=== PATIENT | male | born 1950 | race Caucasian/White ===

== ENCOUNTER 2016-06-16 12:23 | Emergency (ER) | payer OTHER ==
[2016-06-16 12:32] VITALS: BP 127/80
--- NOTE | 2016-06-16 13:52 | CT ---
Head CT Technique: Multiple axial sections through the brain were obtained. Intravenous contrast was not utilized. Comparison: Previous head CT study of 02/03/15. Findings: Ventricles along with basal cisterns and sulci over the convexities are within normal limits for the patient's age. No abnormal parenchymal densities are seen. No evidence of intracranial hemorrhage. No midline shift or mass effect is seen. Mild atherosclerotic calcification is seen with the left vertebral vessel and within the carotid siphon. Bone window settings were reviewed which show slight mucosal thickening within the left ethmoid sinus. Visualized mastoid sinuses and middle ear cavities are clear. No acute calvarial abnormality is seen. Impression: 1. Minimal sinus findings which are incidental. Minimal senescent change. 2. No acute intracranial abnormality is appreciated. Diagnostic code #2
--- NOTE | 2016-06-16 14:48 | EDM.PDOC ---
ED HPI EYE COMPLAINT - General Chief Complaint: Eye Problems Stated Complaint: VISION PROBLEMS Time Seen by Provider: 06/16/16 12:50 Source: Reports: Patient History Limitations: Reports: No limitations - History of Present Illness INITIAL COMMENTS - FREE TEXT/NARRATIVE: The patient presents with vision changes. He has bilateral blurry vision. He also has floaters in both eyes. He also had a flash of light to the right visual field. This has been going on for about 1 week. He has no headache, numbness or weakness. He has no fever, chill, cough or congestion. He denies eye pain. He has a clear drainage at times. He had cataract surgery before. Timing/Duration: Reports: Week(s): (1) Location: both Improves with: Reports: None Worsens with: Reports: None Associated Symptoms (Eye): Reports: decreased/blurred. Denies: pain, burning, itching, eyelid redness, eyelid swelling, FB sensation - Related Data Allergies/ADRs: Allergies acetaminophen [From Tylenol] Allergy (Verified 08/13/15 03:07) Airway Tightness aspirin Allergy (Verified 08/13/15 03:07) Airway Tightness diltiazem Allergy (Verified 08/13/15 03:07) Cannot Remember meperidine HCl [From Demerol] Allergy (Verified 08/13/15 03:07) Airway Tightness morphine Allergy (Verified 08/13/15 03:07) Itching sumatriptan [From Imitrex] Allergy (Verified 08/13/15 03:07) Cannot Remember sumatriptan succinate [From Imitrex] Allergy (Verified 08/13/15 03:07) Cannot Remember haloperidol [From Haldol] Adverse Reaction (Verified 08/13/15 03:07) Change Mental Status haloperidol lactate [From Haldol] Adverse Reaction (Verified 06/16/16 12:32) Change Mental Status ketorolac tromethamine [From Toradol] Adverse Reaction (Verified 08/13/15 03:07) Change Mental Status antihistamines Allergy (Uncoded 01/23/16 23:45) Airway Tightness Home Meds: Ambulatory Orders Medication Instructions Recorded Confirmed Albuterol/Ipratropium [Combivent] 2 puff INH Q4H PRN 04/12/14 06/16/16 Clopidogrel [Plavix] 1 tab PO DAILY 04/12/14 06/16/16 Furosemide [Lasix] 40 mg PO DAILY 04/12/14 06/16/16 PARoxetine HCl [Paxil] 20 mg PO DAILY 04/12/14 06/16/16 Potassium Chloride 10 meq PO BID 04/12/14 06/16/16 Tamsulosin HCl [Flomax] 0.4 mg PO DAILY 04/12/14 06/16/16 Tiotropium [Spiriva HandiHaler] 1 cap INH DAILY 04/12/14 06/16/16 Verapamil HCl [Verelan] 120 mg PO BID 04/12/14 06/16/16 ClonazePAM [KlonoPIN] 0.5 mg PO BEDTIME 02/03/15 06/16/16 Ipratropium Rew 1 spray NASBOTH BID 02/03/15 06/16/16 Simvastatin [Zocor] 20 mg PO BEDTIME 02/03/15 06/16/16 Mirtazapine 15 mg PO BEDTIME 05/09/15 06/16/16 Albuterol Sulfate 2.5 mg IH ASDIRECTED PRN 08/13/15 06/16/16 Nitroglycerin [Nitrostat] 0.3 mg SL ASDIRECTED PRN 08/13/15 06/16/16 Omeprazole 20 mg PO DAILY 08/13/15 06/16/16 hydrOXYzine HCl [Atarax] 50 mg PO TID PRN 08/13/15 06/16/16 Apixaban [Eliquis] 5 mg PO BID 01/23/16 06/16/16 Budesonide/Formoterol [Symbicort 2 inhalation INH BID 01/23/16 06/16/16 160-4.5 MCG] Magnesium Oxide 420 mg PO DAILY 01/23/16 06/16/16 Verapamil [Calan SR] 120 mg PO BID 01/23/16 06/16/16 Azithromycin [Zithromax] 500 mg PO DAILY #5 tablet 01/24/16 06/16/16 Prednisone [IJD: predniSONE] 20 mg PO WITHBREAKFAST #18 tab 01/24/16 06/16/16 Albuterol/Ipratropium [DuoNeb 3 ml NEB Q6HRRT #60 neb 04/03/16 06/16/16 3.0-0.5 MG/3 ML] Amoxicillin/Potassium Clav 1 each PO Q12H #20 tablet 04/03/16 06/16/16 [Augmentin 875-125 Tablet] Prednisone [IJD: predniSONE] 20 mg PO Q12H #41 tab 04/03/16 06/16/16 Past Medical History HEENT History: Reports: Cataract Other HEENT History: wears eyeglasses and upper dentures Cardiovascular History: Reports: Afib, CAD, Heart Failure, ND, Stents Other Cardiovascular History: on coumadin, stents in 1999, 5 ND, and Afib Respiratory History: Reports: Asthma, Bronchitis, recurrent, COPD, Intubation, previous, Pneumonia, recurrent, Sleep apnea, SOB Gastrointestinal History: Reports: GERD Genitourinary History: Reports: BPH Musculoskeletal History: Reports: None Neurological History: Reports: Headaches, chronic Psychiatric History: Reports: Depression Endocrine/Metabolic History: Reports: Obesity/BMI 30+ - Past Surgical History HEENT Surgical History: Reports: Cataract surgery Other HEENT Surgeries/Procedures: nose "worked on" four times to help breathing Cardiovascular Surgical History: Reports: Coronary artery stent Respiratory Surgical History: Reports: None GI Surgical History: Reports: None Male Surgical History: Reports: None Endocrine Surgical History: Reports: None Neurological Surgical History: Reports: None Musculoskeletal Surgical History: Reports: Other (see below) Other Musculoskeletal Surgeries/Procedures:: Bilateral THR Social & Family History - Family History Family Medical History: Noncontributory Oncologic: Reports: Leukemia Other Oncologic Family History: Brother - Tobacco Use Smoking Status *Q: Former Smoker Years of Tobacco use: 20 Packs/Tins Daily: 0.2 Used Tobacco, but Quit: Yes Month Tobacco Last Used: 15 yrs Second Hand Smoke Exposure: No - Caffeine Use Caffeine Use: Reports: Soda - Alcohol Use Days Per Week of Alcohol Use: 0 - Recreational Drug Use Recreational Drug Use: No - Living Situation & Occupation Living situation: Reports: Occupation: disabled ED ROS GENERAL - Review of Systems Review Of Systems: See Below Constitutional: Reports: no symptoms HEENT: Reports: Other (Vision changes) Respiratory: Reports: no symptoms Cardiovascular: Reports: No symptoms Endocrine: Reports: no symptoms GI/Abdominal: Reports: No symptoms : Reports: no symptoms Musculoskeletal: Reports: no symptoms Skin: Reports: no symptoms ED EXAM GENERAL W FULL EYE - Physical Exam Exam: See Below Exam Limited By: No limitations General Appearance: alert, no apparent distress Eye Exam: bilateral eye: EOMI, PERRL Visual acuity (R) 20/: 40 (corrected) Visual acuity (L) 20/: 30 (corrected) IOP (R) in mmH IOP (L) in mmH IOP measure with (equipment): other Eyelids: bilateral: normal appearance Conjunctiva & Sclera: bilateral: normal appearance Cornea Exam: bilateral: normal appearance Extraocular Movements: bilateral: intact Pupillary Size: bilateral: 4 mm Pupillary Reaction: bilateral: brisk Anterior Chamber: bilateral: normal appearance Posterior Chamber: bilateral: normal funduscopic Ears: normal external exam Nose: normal inspection Head: atraumatic, normocephalic Neck: normal inspection Respiratory/Chest: no respiratory distress, lungs clear, normal breath sounds Cardiovascular: regular rate, rhythm, no edema, no murmur GI/Abdominal: soft, non tender, no organomegaly, no mass Course - Vital Signs Last Recorded V/S: Last Vital Signs Temp 97.5 F 06/16/16 12:29 Pulse 72 06/16/16 12:29 Resp 22 H 06/16/16 12:29 BP 127/80 06/16/16 12:29 Pulse Ox 93 L 06/16/16 12:29 - Orders/Labs/Meds Orders: Active Orders 24 hr Category Date Time Status Cardiac Monitoring [RC] . DIRECTED Care 06/16/16 13:01 Active Labs: Laboratory Tests 06/16/16 06/16/16 Range/Units 13:15 13:15 WBC 8.12 (4.23-9.07) K/mm3 RBC 4.63 (4.63-6.08) M/mm3 Hgb 15.1 (13.7-17.5) gm/L Hct 46.1 (40.1-51.0) % MCV 99.6 H (79.0-92.2) fl MCH 32.6 H (25.7-32.2) pg MCHC 32.8 (32.2-35.5) g/dl RDW Std Deviation 51.9 H (35.1-43.9) fL Plt Count 184 (163-337) K/mm3 MPV 9.2 L (9.4-12.3) fl Neut % (Auto) 67.7 (34.0-67.9) % Lymph % (Auto) 18.7 L (21.8-53.1) % [place] % (Auto) 9.1 (5.3-12.2) % Eos % (Auto) 3.0 (0.8-7.0) Baso % (Auto) 0.6 (0.1-1.2) % Neut # 5.50 H (1.78-5.38) K/mm3 Lymph # 1.52 (1.32-3.57) K/mm3 [place] # 0.74 (0.30-0.82) K/mm3 Eos # 0.24 (0.04-0.54) K/mm3 Baso # 0.05 (0.01-0.08) K/mm3 Sodium 142 (136-145) mEq/L Potassium 4.1 (3.5-5.1) mEq/L Chloride 104 (98-107) mEq/L Carbon Dioxide 29 (21-32) mEq/L Anion Gap 13.1 (5-15) BUN 14 (7-18) mg/dL Creatinine 1.3 (0.7-1.3) mg/dL Est Cr Clr Drug Dosing TNP Estimated GFR (MDRD) 55 (>60) mL/min BUN/Creatinine Ratio 10.8 L (14-18) Glucose 175 H (80-115) mg/dL Calcium 9.0 (8.5-10.1) mg/dL Total Bilirubin 0.3 (0.2-1.0) mg/dL AST 19 (15-37) U/L ALT 39 (16-63) U/L Alkaline Phosphatase 152 H (46-116) U/L C-Reactive Protein 1.3 H* (<1.0) mg/dL Total Protein 6.9 (6.4-8.2) g/dl Albumin 3.4 (3.4-5.0) g/dl Globulin 3.5 gm/dL Albumin/Globulin Ratio 1.0 (1-2) - Re-Assessments/Exams Free Text/Narrative Re-Assessment/Exam: 06/16/16 14:47 I [address] a head CT that was negative. His labs look good. His visual exam looks good. 06/16/16 14:49 I will have him see an physical therapist assistant. He will follow up with one. Departure - Departure Time of Disposition: 14:50 Disposition: Home, Self-Care 01 Condition: good Clinical Impression: Blurred vision, bilateral Floaters in visual field Qualifiers: Laterality: right Qualified Code(s): H43.391 - Other vitreous opacities, right eye Referrals: Xuan Ignacio DO [Primary Care Provider] - Forms: ED Department Discharge Additional Instructions: Follow up with an physical therapist assistant for dilated eye exam. Please return if you are worse. - My Orders Last 24 Hours: My Active Orders 06/16/16 13:01 Cardiac Monitoring [RC] . DIRECTED - Assessment/Plan Last 24 Hours: My Active Orders 06/16/16 13:01 Cardiac Monitoring [RC] . DIRECTED
== END 2016-06-16 15:01 | disposition home or self-care (01) ==
LOC: JD.ED 12:23
DX: H43.391 Other vitreous opacities, right eye (principal); I50.9 Heart failure, unspecified; I25.2 Old myocardial infarction; I25.10 Atherosclerotic heart disease of native coronary artery without angina pectoris; K21.9 Gastro-esophageal reflux disease without esophagitis; F32.9 Major depressive disorder, single episode, unspecified; E66.9 Obesity, unspecified; Z98.49 Cataract extraction status, unspecified eye; Z95.5 Presence of coronary angioplasty implant and graft; Z68.30 Body mass index [BMI] 30.0-30.9, adult; Z98.890 Other specified postprocedural states; Z87.891 Personal history of nicotine dependence; Z79.02 Long term (current) use of antithrombotics/antiplatelets; Z79.2 Long term (current) use of antibiotics; Z79.899 Other long term (current) drug therapy; Z88.6 Allergy status to analgesic agent; Z88.5 Allergy status to narcotic agent; Z88.8 Allergy status to other drugs, medicaments and biological substances
CPT/HCPCS: 36415; 70450; 70450-26; 80053; 85025; 86140; 99282; 99284-25

== ENCOUNTER 2016-10-18 12:32 | Inpatient (IN) | payer OTHER ==
[2016-10-18] MEDS ORDERED: Albuterol/Ipratropium 3.0-0.5 MG/3 ML Neb Soln NEB ONE (14:03)
[2016-10-18] MEDS ORDERED: predniSONE 20 MG Tab PO STA (14:04)
--- NOTE | 2016-10-18 14:06 | EDM.PDOC ---
ED HPI GENERAL MEDICAL PROBLEM - General Chief Complaint: Chest Pain Stated Complaint: CHEST PAIN AND ARM PAIN Time Seen by Provider: 10/18/16 12:53 Source of Information: Reports: Patient, RN Notes Reviewed History Limitations: Reports: No Limitations - History of Present Illness INITIAL COMMENTS - FREE TEXT/NARRATIVE: The patient states that he was seen at [facility] 3 days ago for an enlarged right testicle, at which time he was prescribed Levaquin and oxycodone. Since then, the patient states that he has developed body aches. He states he too weak to get out of bed. He states that he had a fever of 103 yesterday. He states that he has a slight cough, occasionally productive of sputum. He states that this is a chronic condition, although is worse than usual. He denies shortness of breath at rest, but admits that he has chronic dyspnea on exertion. He has not noticed that he has been wheezing. His main complaint at this time is of a dry mouth and feeling tired. He also notes that his lower extremities are swollen, although I note that he has chronic venous stasis changes. Here in the ED, the patient is afebrile, but his initial oxygen saturation was found to be 71% on room air. He appeared cyanotic. The patient ordinarily takes oxygen 2.5 L bled into his BiPAP at night. He was given supplemental oxygen at 2.5 L here in the ED, and his oxygen saturation has increased to approximately 88%. He no longer appears cyanotic. The patient's PCP is at the [place]. Bilateral Chest Pain Score (Numeric/FACES): 4 Generalized Pain Score (Numeric/FACES): 4 - Related Data Allergies Allergy/AdvReac Type Severity Reaction Status Date / Time acetaminophen [From Tylenol] Allergy Airway Verified 10/18/16 12:50 Tightness aspirin Allergy Airway Verified 10/18/16 12:50 Tightness diltiazem Allergy Cannot Verified 10/18/16 12:50 Remember meperidine HCl [From Demerol] Allergy Airway Verified 10/18/16 12:50 Tightness morphine Allergy Itching Verified 10/18/16 12:50 sumatriptan [From Imitrex] Allergy Cannot Verified 10/18/16 12:50 Remember sumatriptan succinate Allergy Cannot Verified 10/18/16 12:50 [From Imitrex] Remember haloperidol [From Haldol] AdvReac Change Verified 10/18/16 12:50 Mental Status haloperidol lactate AdvReac Change Verified 10/18/16 12:50 [From Haldol] Mental Status ketorolac tromethamine AdvReac Change Verified 10/18/16 12:50 [From Toradol] Mental Status antihistamines Allergy Airway Uncoded 01/23/16 23:45 Tightness Home Meds: Home Meds Albuterol/Ipratropium [Combivent] 2 puff INH Q4H PRN 04/12/14 [History] Clopidogrel [Plavix] 1 tab PO DAILY 04/12/14 [History] Furosemide [Lasix] 40 mg PO DAILY 04/12/14 [History] PARoxetine HCl [Paxil] 20 mg PO DAILY 04/12/14 [History] Potassium Chloride 10 meq PO BID 04/12/14 [History] Tamsulosin HCl [Flomax] 0.4 mg PO DAILY 04/12/14 [History] Tiotropium [Spiriva HandiHaler] 1 cap INH DAILY 04/12/14 [History] ClonazePAM [KlonoPIN] 0.5 mg PO BEDTIME 02/03/15 [History] Ipratropium [place] 1 spray NASBOTH BID 02/03/15 [History] Simvastatin [Zocor] 20 mg PO BEDTIME 02/03/15 [History] Mirtazapine 15 mg PO BEDTIME 05/09/15 [History] Albuterol Sulfate 2.5 mg IH ASDIRECTED PRN 08/13/15 [History] Nitroglycerin [Nitrostat] 0.3 mg SL ASDIRECTED PRN 08/13/15 [History] hydrOXYzine HCl [Atarax] 50 mg PO TID PRN 08/13/15 [History] Apixaban [Eliquis] 5 mg PO BID 01/23/16 [History] Budesonide/Formoterol [Symbicort 160-4.5 MCG] 2 inhalation INH BID 01/23/16 [ History] Magnesium Oxide 420 mg PO DAILY 01/23/16 [History] Verapamil [Calan SR] 120 mg PO BID 01/23/16 [History] Albuterol/Ipratropium [DuoNeb 3.0-0.5 MG/3 ML] 3 ml NEB Q6HRRT #60 neb 04/03/16 [Rx] Past Medical History HEENT History: Reports: Cataract Other HEENT History: wears eyeglasses and upper dentures Cardiovascular History: Reports: Afib (paroxysmal), CAD, Heart Failure, High Cholesterol, Hypertension, PR Respiratory History: Reports: COPD, Intubation, Previous, Sleep Apnea (nightly BiPAP + O2) Gastrointestinal History: Reports: GERD, PUD Genitourinary History: Reports: BPH Psychiatric History: Reports: Anxiety, Depression Endocrine/Metabolic History: Reports: Obesity/BMI 30+ - Past Surgical History HEENT Surgical History: Reports: Cataract Surgery Cardiovascular Surgical History: Reports: Coronary Artery Stent (x 3) GI Surgical History: Reports: Appendectomy Musculoskeletal Surgical History: Reports: Hip Replacement (bilateral) Social & Family History - Family History Family Medical History: Noncontributory Oncologic: Reports: Leukemia Other Oncologic Family History: Brother - Tobacco Use Smoking Status *Q: Former Smoker Years of Tobacco use: 20 Packs/Tins Daily: 0.5 Month Tobacco Last Used: Quit 2013 Second Hand Smoke Exposure: No - Caffeine Use Caffeine Use: Reports: Soda - Alcohol Use Alcohol Use History: No Days Per Week of Alcohol Use: 0 - Recreational Drug Use Recreational Drug Use: No - Living Situation & Occupation Living situation: Reports: , with Spouse Occupation: Disabled ED ROS GENERAL - Review of Systems Review Of Systems: See Below Constitutional: Reports: Fever (as per the HPI), Fatigue (as per the HPI) HEENT: Reports: No Symptoms, Other (Dry mouth) Respiratory: Reports: Cough (as per the HPI), Sputum (as per the HPI). Denies: Shortness of Breath, Wheezing Cardiovascular: Reports: Dyspnea on Exertion (as per the HPI). Denies: Chest Pain, Palpitations Endocrine: Reports: No Symptoms GI/Abdominal: Reports: No Symptoms : Reports: No Symptoms Musculoskeletal: Reports: No Symptoms Skin: Reports: No Symptoms Neurological: Reports: No Symptoms Psychiatric: Reports: No Symptoms Hematologic/Lymphatic: Reports: No Symptoms Immunologic: Reports: No Symptoms ED EXAM, GENERAL - Physical Exam Exam: See Below Exam Limited By: No Limitations General Appearance: Alert, WD/WN, Mild Distress Eye Exam: Bilateral Eye: Normal Inspection Ears: Normal External Exam, Hearing Grossly Normal Nose: Normal Inspection, No Blood Throat/Mouth: Normal Inspection, Normal Lips, Normal Voice, No Airway Compromise Head: Atraumatic, Normocephalic Neck: Normal Inspection, Full Range of Motion Respiratory/Chest: No Respiratory Distress, No Accessory Muscle Use, Decreased Breath Sounds, Wheezing, Prolonged Expiration, Other (Pursed lip breathing). No : Respiratory Distress, Crackles, Rhonchi Cardiovascular: Normal Peripheral Pulses, No Gallop, No JVD, No Murmur, No Rub, Irregularly Irregular Peripheral Pulses: 4+: Radial (L), Radial (R) GI/Abdominal: Normal Bowel Sounds, Soft, Non-Tender, No Organomegaly, No Distention, No Abnormal Bruit, No Mass, Other (Obese) (Male) Exam: Deferred Rectal (Males) Exam: Deferred Back Exam: Normal Inspection, Full Range of Motion, NT Extremities: Normal Range of Motion, Other (2+ pretibial edema bilaterally, with hyperpigmentation consistent with chronic venous stasis) Neurological: Alert, Oriented, Normal Cognition, No Motor/Sensory Deficits Psychiatric: Normal Affect Skin Exam: Warm, Dry, Intact, Normal Color, No Rash Lymphatic: No Adenopathy EKG INTERPRETATION EKG Date: 10/18/16 Time: 12:39 Rhythm: A-Fib Rate (Beats/Min): 95 [place]: Normal P-Wave: Absent QRS: Normal ST-T: Normal QT: Normal Comparison: No Change (04/03/2016) Course - Vital Signs Last Recorded V/S: Last Vital Signs Temp 36.4 C 10/18/16 12:38 Pulse 113 H 10/18/16 12:38 Resp 16 10/18/16 12:38 BP 122/78 10/18/16 12:38 Pulse Ox 91 L 10/18/16 14:03 - Orders/Labs/Meds Orders: Active Orders 24 hr Category Date Time Status EKG Documentation Completion [RC] STAT Care 10/18/16 13:11 Active RT Aerosol Therapy [RC] ASDIRECTED Care 10/18/16 14:03 Active Ang Chest [CT] Stat Exams 10/18/16 14:58 Taken Chest 2V [CR] Stat Exams 10/18/16 13:11 Taken Sodium Chloride 0.9% [Normal Saline] 1,000 ml Med 10/18/16 15:00 Active IV ASDIRECTED Sodium Chloride 0.9% [Normal Saline] 100 ml Med 10/18/16 15:15 Active IV ASDIRECTED Sodium Chloride 0.9% [Saline Flush] Med 10/18/16 15:05 Active 10 ml FLUSH ONETIME PRN Blood Culture x2 Reflex Set [OM.PC] Stat Oth 10/18/16 13:11 Ordered Medication Orders Sodium Chloride (Normal Saline) 1,000 mls @ 100 mls/hr IV ASDIRECTED SANTOS Last Admin: 10/18/16 15:55 Dose: 100 mls/hr Sodium Chloride (Normal Saline) 100 mls @ 65 mls/hr IV ASDIRECTED SANTOS Last Admin: 10/18/16 15:36 Dose: 65 mls/hr Sodium Chloride (Saline Flush) 10 ml FLUSH ONETIME PRN PRN Reason: IV FLUSH Last Admin: 10/18/16 15:36 Dose: 10 ml Labs: Laboratory Tests 10/18/16 10/18/16 10/18/16 Range/Units 12:45 12:45 12:45 WBC 11.15 H (4.23-9.07) K/mm3 RBC 4.27 L (4.63-6.08) M/mm3 Hgb 13.5 L (13.7-17.5) gm/L Hct 41.6 (40.1-51.0) % MCV 97.4 H (79.0-92.2) fl MCH 31.6 (25.7-32.2) pg MCHC 32.5 (32.2-35.5) g/dl RDW Std Deviation 48.9 H (35.1-43.9) fL Plt Count 200 (163-337) K/mm3 MPV 9.6 (9.4-12.3) fl Neutrophils % (Manual) 80 H (40-60) % Band Neutrophils % 0 (0-10) % Lymphocytes % (Manual) 9 L (20-40) % Atypical Lymphs % 0 % Monocytes % (Manual) 8 (2-10) % Eosinophils % (Manual) 2 (0.8-7.0) % Basophils % (Manual) 1 (0.2-1.2) Platelet Estimate Adequate Plt Morphology Comment Normal RBC Morph Comment Normal PT 11.4 (8.0-13.0) SECONDS INR 1.04 APTT 31 (22-36) SECONDS D-Dimer, Quantitative 1.00 H (0.19-0.59) mg/L Puncture Site ABG pH (7.35-7.45) ABG pCO2 (35.0-45.0) mmHg ABG pO2 (80.0-100.0) mmHg ABG HCO3 (22.0-26.0) meq/L A-a Gradient mmHg O2 Delivery Device Oxygen Flow Rate FiO2 (21.00-100.00) % Sodium 132 L (136-145) mEq/L Potassium 3.8 (3.5-5.1) mEq/L Chloride 96 L (98-107) mEq/L Carbon Dioxide 33 H (21-32) mEq/L Anion Gap 6.8 (5-15) BUN 21 H (7-18) mg/dL Creatinine 1.7 H (0.7-1.3) mg/dL Est Cr Clr Drug Dosing 38.05 mL/min Estimated GFR (MDRD) 40 (>60) mL/min BUN/Creatinine Ratio 12.4 L (14-18) Glucose 126 H (80-115) mg/dL Lactic Acid (0.4-2.0) mmol/L Calcium 8.6 (8.5-10.1) mg/dL Total Bilirubin 0.7 (0.2-1.0) mg/dL AST 64 H (15-37) U/L ALT 25 (16-63) U/L Alkaline Phosphatase 143 H (46-116) U/L Troponin I 0.027 (0.00-0.056) ng/mL B-Natriuretic Peptide (0-100) pg/mL Total Protein 6.8 (6.4-8.2) g/dl Albumin 3.0 L (3.4-5.0) g/dl Globulin 3.8 gm/dL Albumin/Globulin Ratio 0.8 L (1-2) 10/18/16 10/18/16 10/18/16 Range/Units 12:45 13:45 14:42 WBC (4.23-9.07) K/mm3 RBC (4.63-6.08) M/mm3 Hgb (13.7-17.5) gm/L Hct (40.1-51.0) % MCV (79.0-92.2) fl MCH (25.7-32.2) pg MCHC (32.2-35.5) g/dl RDW Std Deviation (35.1-43.9) fL Plt Count (163-337) K/mm3 MPV (9.4-12.3) fl Neutrophils % (Manual) (40-60) % Band Neutrophils % (0-10) % Lymphocytes % (Manual) (20-40) % Atypical Lymphs % % Monocytes % (Manual) (2-10) % Eosinophils % (Manual) (0.8-7.0) % Basophils % (Manual) (0.2-1.2) Platelet Estimate Plt Morphology Comment RBC Morph Comment PT (8.0-13.0) SECONDS INR APTT (22-36) SECONDS D-Dimer, Quantitative (0.19-0.59) mg/L Puncture Site Lt radial ABG pH 7.39 (7.35-7.45) ABG pCO2 52.4 H (35.0-45.0) mmHg ABG pO2 59.0 L (80.0-100.0) mmHg ABG HCO3 31.2 H (22.0-26.0) meq/L A-a Gradient 80 mmHg O2 Delivery Device Nasal cannula Oxygen Flow Rate 3.0 FiO2 32.00 (21.00-100.00) % Sodium (136-145) mEq/L Potassium (3.5-5.1) mEq/L Chloride (98-107) mEq/L Carbon Dioxide (21-32) mEq/L Anion Gap (5-15) BUN (7-18) mg/dL Creatinine (0.7-1.3) mg/dL Est Cr Clr Drug Dosing mL/min Estimated GFR (MDRD) (>60) mL/min BUN/Creatinine Ratio (14-18) Glucose (80-115) mg/dL Lactic Acid 0.9 (0.4-2.0) mmol/L Calcium (8.5-10.1) mg/dL Total Bilirubin (0.2-1.0) mg/dL AST (15-37) U/L ALT (16-63) U/L Alkaline Phosphatase (46-116) U/L Troponin I (0.00-0.056) ng/mL B-Natriuretic Peptide 777 H (0-100) pg/mL Total Protein (6.4-8.2) g/dl Albumin (3.4-5.0) g/dl Globulin gm/dL Albumin/Globulin Ratio (1-2) Meds: Medications Generic Name Dose Route Start Last Admin Trade Name Freq PRN Reason Stop Dose Admin Sodium Chloride 1,000 mls @ 100 mls/hr 10/18/16 15:00 10/18/16 15:55 Normal Saline IV 100 mls/hr ASDIRECTED SANTOS Administration Sodium Chloride 100 mls @ 65 mls/hr 10/18/16 15:15 10/18/16 15:36 Normal Saline IV 65 mls/hr ASDIRECTED SANTOS Administration Sodium Chloride 10 ml 10/18/16 15:05 10/18/16 15:36 Saline Flush FLUSH 10 ml ONETIME PRN Administration IV FLUSH Discontinued Medications Generic Name Dose Route Start Last Admin Trade Name Freq PRN Reason Stop Dose Admin Albuterol/Ipratropium 3 ml 10/18/16 14:03 10/18/16 14:26 Duoneb 3.0-0.5 Mg/3 Ml NEB 10/18/16 14:04 3 ml ONETIME ONE Administration Levofloxacin/Dextrose 750 mg/ 150 mls @ 100 mls/hr 10/18/16 14:07 10/18/16 14 :32 Premix IV 10/18/16 15:36 100 mls/hr ONETIME ONE Administration Iopamidol 100 ml 10/18/16 15:05 10/18/16 15:36 Isovue-370 (76%) IVPUSH 10/18/16 15:06 100 ml ONETIME ONE Administration Prednisone 60 mg 10/18/16 14:04 10/18/16 15:14 Prednisone PO 10/18/16 14:05 60 mg ONETIME STA Administration - Re-Assessments/Exams Free Text/Narrative Re-Assessment/Exam: 10/18/16 14:00 Two-view chest radiograph reviewed. Cardiac silhouette appears to demonstrate the predominance of the heart on the right side of the chest, possible dextrocardia. No pulmonary vascular congestion. No pleural effusions. Infiltrate versus atelectasis likely in the middle lobe. No pneumothorax. Formal read per the Radiologist pending. 10/18/16 14:59 The patient's D-dimer is modestly elevated at 1.00. His renal function is moderately impaired. I have ordered a CT angiogram of the chest to evaluate for PE, along with normal saline IV fluid. 10/18/16 16:29 CT angiogram of the chest is read by [facility] as: 1. No evidence of pulmonary embolus to the segmental level. 2. No aneurysm of the ascending aorta. 3. No dissection of the aorta. 4. Narrowing of the trachea. Narrowing of the mainstem bronchi. 5. Opacities in the lower lobes, right middle lobe, and lingula may represent atelectasis or pneumonia. 10/18/16 16:[address] Briones at 16:34. She agrees to admit the patient. 10/18/16 16:41 Case discussed with the patient. He is agreeable to being admitted. Departure - Departure Time of Disposition: 16:41 Disposition: Admitted As Inpatient 64 Condition: Fair Clinical Impression: Hypoxemia, Acute renal failure, Atrial fibrillation Pneumonia Qualifiers: Pneumonia type: due to unspecified organism Laterality: bilateral Lung location : lower lobe of lung Qualified Code(s): J16.8 - Pneumonia due to other specified infectious organisms - Discharge Information - My Orders Last 24 Hours: My Active Orders 10/18/16 13:11 EKG Documentation Completion [RC] STAT Chest 2V [CR] Stat Blood Culture x2 Reflex Set [OM.PC] Stat 10/18/16 14:03 RT Aerosol Therapy [RC] ASDIRECTED 10/18/16 14:58 Ang Chest [CT] Stat 10/18/16 15:00 Sodium Chloride 0.9% [Normal Saline] 1,000 ml IV ASDIRECTED 10/18/16 15:05 Sodium Chloride 0.9% [Saline Flush] 10 ml FLUSH ONETIME PRN 10/18/16 15:15 Sodium Chloride 0.9% [Normal Saline] 100 ml IV ASDIRECTED - Assessment/Plan Last 24 Hours: My Active Orders 10/18/16 13:11 EKG Documentation Completion [RC] STAT Chest 2V [CR] Stat Blood Culture x2 Reflex Set [OM.PC] Stat 10/18/16 14:03 RT Aerosol Therapy [RC] ASDIRECTED 10/18/16 14:58 Ang Chest [CT] Stat 10/18/16 15:00 Sodium Chloride 0.9% [Normal Saline] 1,000 ml IV ASDIRECTED 10/18/16 15:05 Sodium Chloride 0.9% [Saline Flush] 10 ml FLUSH ONETIME PRN 10/18/16 15:15 Sodium Chloride 0.9% [Normal Saline] 100 ml IV ASDIRECTED
[2016-10-18] MEDS ORDERED: Levofloxacin/Dextrose 5%-Water 750 MG in Premix Bag 1 BAG IV ONE (14:07)
[2016-10-18] MEDS ORDERED: Iopamidol 755 Mg/ML 100 ML Bottle IVPUSH ONE (15:05)
[2016-10-18] MEDS ORDERED: Sodium Chloride 0.9% 10 ML Syringe FLUSH PRN (15:05)
[2016-10-18] MEDS ORDERED: Sodium Chloride 0.9% 100 ML IV SCH (15:15)
[2016-10-18] MEDS: Sodium Chloride 0.9% 1,000 ML IV SCH (15:55)
[2016-10-18] MEDS ORDERED: Acetaminophen/HYDROcodone 325-5 MG Tab PO PRN (17:08)
[2016-10-18] MEDS ORDERED: LORazepam 2 MG/ML MDV IV PRN (17:08)
[2016-10-18] MEDS ORDERED: Albuterol/Ipratropium 3.0-0.5 MG/3 ML Neb Soln NEB PRN (17:08)
[2016-10-18] MEDS ORDERED: Acetaminophen 325 MG Tab PO PRN (17:08)
[2016-10-18] MEDS ORDERED: Polyethylene Glycol 3350 Powder 17 GM Packet PO PRN (17:08)
[2016-10-18] MEDS ORDERED: Docusate Sodium 100 MG Cap PO PRN (17:08)
[2016-10-18] MEDS ORDERED: Bisacodyl 5 MG Tab PO PRN (17:08)
[2016-10-18] MEDS ORDERED: Ondansetron 4 MG/2 ML SDV IV PRN (17:08)
[2016-10-18] MEDS ORDERED: Promethazine 12.5 MG in Sodium Chloride 0.9% 50 ML IV PRN (17:08)
[2016-10-18] MEDS ORDERED: Morphine 2 MG/ML Syringe IVPUSH PRN (17:08)
--- NOTE | 2016-10-18 17:10 | PCM.HP ---
H&P History of Present Illness - General Date of Service: 10/18/16 Admit Problem/Dx: Acute on Chronic Respiratory Failure and CAP Source of Information: Patient, Old Records, Provider, RN Notes Reviewed History Limitations: Reports: Respiratory Distress - History of Present Illness Initial Comments - Free Text/Narative: This is a 65 year old white male with past medical history of chronic atrial fibrillation on eliquis, coronary artery disease, OK with history of stents placement, heart failure with preserved ejection fraction, obstructive sleep apnea on CPAP, nocturnal hypoxemia on 2.5 L nasal cannula, chronic dyspnea on exertion, GERD, BPH, chronic headaches, anxiety/depression, and obesity with BMI over 30 who comes to the emergency department with complains of chest pain. Patient carries a history of COPD and chronic respiratory failure. He reports having productive cough with sputum. His symptoms are worse than usual. Additionally he reports of having dry mouth and feeling tired/fatigued. His lower extremities are swollen as well. On presentation to the emergency department, the patient was found to be hypoxic with an O2 saturation of as low as 71% on room air, appearing cyanotic. Patient was recently seen at [facility] 2 days ago for an enlarged testicular testicle and was given levaquin and oxycodone for medical management. Since then , the patient reports generalized aches and pains. He is too weak and unable to get out of bed. Yesterday, he reports a subjective fever of 103. His initial workup in the emergency department shows a CBC remarkable for WBC of 11.15, hemoglobin of 13.5, and neutrophils of 80%. His d-dimer is noted at 1. His ABG shows a pH of 7.39, PCO2 of 52.4, PO2 of 59, and HCO3 of 31.2 on 3 L nasal cannula. His chemistry is significant for sodium of 132, chloride of 96, bicarbonate of 33, BUN of 21, creatinine of 1.7, glucose of 126, AST of 64, alkaline phosphatase of 143, CRP of 7.1, BNP of 777 and albumin of 3. Chest x- ray shows mildly increased central pulmonary markings but without obvious pulmonary infiltrate. His CTA report from [facility] reads: No evidence of pulmonary embolus to the segmental level. No aneurysm no aneurysm of the ascending aorta. No dissection of the aorta. Narrowing of the trachea. Narrowing of the mainstem bronchi. Opacities in the lower lobes, right middle lobe and lingula may represent atelectasis or pneumonia. Patient is being admitted primarily for medical management of community- acquired pneumonia. He is full code. Bilateral Chest Pain Score (Numeric/FACES): 4 Generalized Pain Score (Numeric/FACES): 4 - Related Data Allergies/Adverse Reactions: Allergies Allergy/AdvReac Type Severity Reaction Status Date / Time acetaminophen [From Tylenol] Allergy Airway Verified 10/18/16 18:49 Tightness aspirin Allergy Airway Verified 10/18/16 18:49 Tightness diltiazem Allergy Cannot Verified 10/18/16 18:49 Remember meperidine HCl [From Demerol] Allergy Airway Verified 10/18/16 18:49 Tightness morphine Allergy Itching Verified 10/18/16 18:49 sumatriptan [From Imitrex] Allergy Cannot Verified 10/18/16 18:49 Remember sumatriptan succinate Allergy Cannot Verified 10/18/16 18:49 [From Imitrex] Remember haloperidol [From Haldol] AdvReac Change Verified 10/18/16 18:49 Mental Status haloperidol lactate AdvReac Change Verified 10/18/16 18:49 [From Haldol] Mental Status ketorolac tromethamine AdvReac Change Verified 10/18/16 18:49 [From Toradol] Mental Status antihistamines Allergy Airway Uncoded 10/18/16 18:49 Tightness Home Medications: Home Meds Albuterol/Ipratropium [Combivent] 2 puff INH Q4H PRN 04/12/14 [History] Clopidogrel [Plavix] 1 tab PO DAILY 04/12/14 [History] Furosemide [Lasix] 40 mg PO DAILY 04/12/14 [History] PARoxetine HCl [Paxil] 20 mg PO DAILY 04/12/14 [History] Potassium Chloride 10 meq PO BID 04/12/14 [History] Tamsulosin HCl [Flomax] 0.4 mg PO DAILY 04/12/14 [History] Tiotropium [Spiriva HandiHaler] 1 cap INH DAILY 04/12/14 [History] ClonazePAM [KlonoPIN] 0.5 mg PO BEDTIME 02/03/15 [History] Ipratropium [place] 1 spray NASBOTH BID 02/03/15 [History] Simvastatin [Zocor] 20 mg PO BEDTIME 02/03/15 [History] Mirtazapine 15 mg PO BEDTIME 05/09/15 [History] Albuterol Sulfate 2.5 mg IH ASDIRECTED PRN 08/13/15 [History] Nitroglycerin [Nitrostat] 0.3 mg SL ASDIRECTED PRN 08/13/15 [History] hydrOXYzine HCl [Atarax] 50 mg PO TID PRN 08/13/15 [History] Apixaban [Eliquis] 5 mg PO BID 01/23/16 [History] Budesonide/Formoterol [Symbicort 160-4.5 MCG] 2 inhalation INH BID 01/23/16 [ History] Magnesium Oxide 420 mg PO DAILY 01/23/16 [History] Verapamil [Calan SR] 120 mg PO BID 01/23/16 [History] Albuterol/Ipratropium [DuoNeb 3.0-0.5 MG/3 ML] 3 ml NEB Q6HRRT #60 neb 04/03/16 [Rx] Past Medical History HEENT History: Reports: Cataract Other HEENT History: wears eyeglasses and upper dentures Cardiovascular History: Reports: Afib (paroxysmal), CAD, Heart Failure, High Cholesterol, Hypertension, OK Other Cardiovascular History: on coumadin, stents in 1999, 5 [place], and Afib Respiratory History: Reports: COPD, Intubation, Previous, Sleep Apnea (nightly BiPAP + O2) Gastrointestinal History: Reports: GERD, PUD Genitourinary History: Reports: BPH Musculoskeletal History: Reports: None Neurological History: Reports: Headaches, Chronic Psychiatric History: Reports: Anxiety, Depression Endocrine/Metabolic History: Reports: Obesity/BMI 30+ - Past Surgical History HEENT Surgical History: Reports: Cataract Surgery Cardiovascular Surgical History: Reports: Coronary Artery Stent (x 3) GI Surgical History: Reports: Appendectomy Musculoskeletal Surgical History: Reports: Hip Replacement (bilateral) Social & Family History - Family History Family Medical History: Noncontributory Oncologic: Reports: Leukemia Other Oncologic Family History: Brother - Tobacco Use Smoking Status *Q: Former Smoker Years of Tobacco use: 20 Packs/Tins Daily: 0.5 Used Tobacco, but Quit: Yes Month Tobacco Last Used: Quit 2013 Second Hand Smoke Exposure: No - Caffeine Use Caffeine Use: Reports: Soda - Alcohol Use Days Per Week of Alcohol Use: 0 - Recreational Drug Use Recreational Drug Use: No - Living Situation & Occupation Living situation: Reports: , with Spouse Occupation: Disabled H&P Review of Systems - Review of Systems: Review Of Systems: See Below General: Reports: Fever, Fatigue HEENT: Reports: Other (dry mouth) Pulmonary: Denies: Shortness of Breath Cardiovascular: Reports: Dyspnea on Exertion Gastrointestinal: Denies: Abdominal Pain, Nausea, Vomiting Genitourinary: Reports: Other (Testicular Pain, Edema and Enlargement) Musculoskeletal: Reports: No Symptoms Skin: Denies: Cyanosis, Mottled, Pallor, Bruising, Rash, Erythema, Change in Hair/Nails Psychiatric: Denies: Confusion, Depression, Anxiety, Hallucinations Neurological: Denies: Confusion, Difficulty Walking, Weakness, Gait Disturbance Hematologic/Lymphatic: Reports: Easy Bleeding Immunologic: Reports: No Symptoms Exam - Exam Exam: See Below - Vital Signs Vital Signs: Last Vital Signs Temp 36.4 C 10/18/16 12:38 Pulse 113 H 10/18/16 12:38 Resp 16 10/18/16 12:38 BP 122/78 10/18/16 12:38 Pulse Ox 91 L 10/18/16 14:03 Weight: 88.451 kg - Exam Quality Assessment: Supplemental Oxygen General: Alert, Oriented, Cooperative, Mild Distress HEENT: Conjunctiva Clear, EACs Clear, EOMI, Hearing Intact, Mucosa Moist & Swan , Nares Patent, Normal Nasal Septum, Posterior Pharynx Clear, Pupils Equal, Pupils Reactive Neck: Supple, Trachea Midline, Full Range of Motion. No: JVD, Thyromegaly Lungs: Normal Respiratory Effort, Decreased Breath Sounds, Rhonchi, Wheezing Cardiovascular: Irregular Rhythm, Other (Irregular rate) Abdomen: Normal Bowel Sounds. No: Tenderness (Male) Exam: Deferred, Cremasteric Reflex, Inguinal Lymphadenopathy, Scrotal Swelling, Testicular Tenderness (R). No: Penile Lesions, Rash, Suprapubic Fullness, Testicular Mass, Urethral Discharge Rectal (Males) Exam: Deferred Back Exam: Normal Inspection, Decreased Range of Motion Extremities: Normal Inspection, Normal Pulses, Edema Peripheral Pulses: 2+: Posterior Tibial (L), Posterior Tibial (R), Dorsalis Pedis (L), Dorsalis Pedis (R) Skin: Warm, Dry, Intact Neuro Extensive - Mental Status: Oriented x3, Normal Cognition, Memory Intact Neuro Extensive - Motor, Sensory, Reflexes: CN II-XII Intact, Abnormal Gait Psychiatric: Alert, Normal Affect, Normal Mood - Patient Data Result Diagrams: 10/18/16 12:45 10/18/16 12:45 EKG INTERPRETATION EKG Date: 10/18/16 Time: 12:39 Rhythm: A-Fib Rate (Beats/Min): 95 [place]: Normal P-Wave: Absent QRS: Normal ST-T: Normal QT: Normal Comparison: No Change *Q Meaningful Use (ADM) - VTE *Q VTE Criteria *Q: - Stroke *Q Stroke Criteria *Q: - AMI *Q AMI Criteria *Q: Problem List Initiated/Reviewed/Updated: Yes Orders Last 24hrs: Medication Orders Sodium Chloride (Normal Saline) 1,000 mls @ 100 mls/hr IV ASDIRECTED [facility] Last Admin: 10/18/16 15:55 Dose: 100 mls/hr Sodium Chloride (Normal Saline) 100 mls @ 65 mls/hr IV ASDIRECTED [facility] Last Admin: 10/18/16 15:36 Dose: 65 mls/hr Sodium Chloride (Saline Flush) 10 ml FLUSH ONETIME PRN PRN Reason: IV FLUSH Last Admin: 10/18/16 15:36 Dose: 10 ml Assessment/Plan Comment:: Assessment/Plan: Acute: Acute on Chronic Respiratory Failure - Combined Hypoxemic (ABG PO2 59) and Hypercapneic (ABG PCO2 52 and Bicar 33) - Risk factor: SWAPNIL on CPAP, COPD, Nocturnal Hypoxemia, and Obesity - On Supplemental O2 at 2.5 L NC CAP - Bilateral Lower Lobes, Right Middle Lobe and Lingula - Received IV Levaquin in ED - Will switch to Azith/Rocephin to cover for his Epididymo-Orchitis - Sputum Cx/Sx - Mycoplasma and Strep pneumoniae Ag tests - Serial CXR and RT care COPD: 50/50 - Supplemental O2 - Bronchodilators, IV Solumedrol, and Oral Mag-Ox BID Epididymo-Orchitis - Enlarged Right Testicle - Was seen in [place] 3 days ago with oral levaquin - Denies he is sexually active - Check MMR status - UA and screen for STD w/ Chlamydia Trachomatis and N. Gonorrhea - No under wear, elevate testicle, Ice pack TID, and Naproxen 500 mg po BID Leukoctyosis - WBC 11.15 - Likely 2/2 Above - Monitor Elevated D-Dimer - CTA negative for PE - Likely from PNA Hyperglycemia - He is Obese - Will screen for diabetes Elevated BNP Level 777 - Hx/o ? HF with Preserved EF 60-65 % 05/11/2015 - 2D Echo - Heart Heart diet - 2gram salt restriction - Repeat Level in AM Clinical Dehydration - Patient is dry orally - IVF hydration - No fluid restriction for now Tracheal and Mainstem Bronchi Stenosis: CT scan findings - May explained why he got cyanotic - IV Steroids and PRN Racemic Epinephrin - Monitor closely respiratory status - May need to see Pulmonology for further eval Chronic: A-Fib on Eliquis, HR controlled HTN CAD S/p Stents Hx/o [place]/CAD Nocturnal Hypoxemia with 2.5 L NC SWAPNIL on CPAP GERD BPH CARDENAS Depression Obesity Plan: Admit to the floor with telemetry Resume Home Meds Routine AM Labs PT/OT/RT consult SW/TOREY for d/c planning DVT ppx: eliquis Code status: 1
[2016-10-18] MEDS ORDERED: hydrALAZINE 20 MG/ML SDV IVPUSH PRN (17:15)
[2016-10-18] MEDS ORDERED: Metoprolol Tartrate 5 MG/5 ML SDV IVPUSH PRN (17:15)
[2016-10-18] MEDS ORDERED: HYDROmorphone 1 MG/ML Syringe IVPUSH PRN (17:15)
[2016-10-18] MEDS ORDERED: Azithromycin 500 MG in Sodium Chloride 0.9% 250 ML IV ONE (17:17)
[2016-10-18] MEDS ORDERED: cefTRIAXone 2 GM in Sodium Chloride 0.9% 100 ML IV ONE (17:18)
[2016-10-18] MEDS ORDERED: Saccharomyces Boulardii (Probiotic) 250 MG Cap PO ONE (17:19)
[2016-10-18] MEDS ORDERED: methylPREDNISolone Sodium Succinate 125 MG/2 ML SDV IVPUSH ONE (17:42)
[2016-10-18] MEDS ORDERED: Racepinephrine 2.25% 0.5 ML Neb Soln NEB PRN (18:32)
[2016-10-18] MEDS ORDERED: Nitroglycerin 0.3 MG Tab.SL SL PRN (18:33)
[2016-10-18] MEDS ORDERED: hydrOXYzine HCl 50 MG Tab PO PRN (18:33)
[2016-10-18] MEDS ORDERED: Non-Formulary Medication 1 Each (Albuterol/Ipratropium [Combivent] 2 PUFF) INH PRN (18:33)
[2016-10-18] MEDS ORDERED: ClonazePAM 0.5 MG Tab PO SCH (21:00)
[2016-10-18] MEDS ORDERED: Budesonide/Formoterol 160-4.5 MCG/Puff 6 GM Inhaler INH SCH (21:00)
[2016-10-18] MEDS ORDERED: Mirtazapine 15 MG Tab PO SCH (21:00)
[2016-10-18] MEDS: Albuterol/Ipratropium 3.0-0.5 MG/3 ML Neb Soln NEB SCH (21:15)
[2016-10-18] MEDS: Formoterol/Mometasone 200-5 MCG 8.8 GM Inhaler IH SCH (21:16)
[2016-10-18] MEDS: Verapamil 120 MG Tab.ER PO SCH (21:26)
[2016-10-18] MEDS: Apixaban 5 MG Tab PO SCH (21:26)
[2016-10-18] MEDS: Potassium Chloride 10 MEQ Tab.ER PO SCH (21:27)
[2016-10-18] MEDS: Magnesium Oxide 400 MG Tab PO SCH (21:27)
[2016-10-18] MEDS: Naproxen 500 MG Tab PO SCH (21:27)
[2016-10-18] MEDS: Famotidine 20 MG Tab PO SCH (21:27)
[2016-10-18] MEDS: Simvastatin 20 MG Tab PO SCH (21:28)
[2016-10-18] MEDS: Ipratropium 0.06% Nasal Spray 15 ML Bottle NASBOTH SCH (23:42)
[2016-10-19] MEDS: Sodium Chloride 0.9% 1,000 ML IV SCH ×2 (01:25→09:17)
[2016-10-19] MEDS: methylPREDNISolone Sodium Succinate 40 MG/1 ML SDV IVPUSH SCH ×3 (01:25→17:15)
[2016-10-19] MEDS: Albuterol/Ipratropium 3.0-0.5 MG/3 ML Neb Soln NEB SCH ×4 (02:49→20:36)
[2016-10-19] MEDS ORDERED: Albuterol 0.021% 0.63 MG/3 ML Neb Soln INH SCH (08:00)
[2016-10-19] MEDS ORDERED: RANITIDINE 300 MG PO SCH (08:00)
--- NOTE | 2016-10-19 08:01 | PCM.PN ---
- General Info Date of Service: 10/19/16 Admission Dx/Problem (Free Text): Acute on Chronic Respiratory Failure and CAP Subjective Update: Follow Up Functional Status: Reports: pain controlled, tolerating diet, urinating. Denies : new symptoms - Review of Systems General: Denies: Fever, Weakness, Fatigue, Malaise, Chills HEENT: Reports: no symptoms Pulmonary: Reports: shortness of breath, wheezing Cardiovascular: Denies: Chest Pain, Palpitations, Dyspnea on Exertion Gastrointestinal: Denies: Abdominal pain, Nausea, Vomiting Genitourinary: Reports: no symptoms, other (testicular pain ) Musculoskeletal: Reports: no symptoms Skin: Denies: rash Neurological: Reports: Weakness, Gait Disturbance. Denies: Confusion, Difficulty Walking Psychiatric: Denies: depression, anxiety, agitation, hallucinations Systems Review Comment:: No overnight or acute issues. He slept pretty good. He feels much better this morning. He has no new complaints. - Patient Data Vitals - most recent: Last Vital Signs Temp 36.7 C 10/19/16 04:34 Pulse 62 10/19/16 04:34 Resp 16 10/19/16 04:34 BP 92/59 L 10/19/16 04:34 Pulse Ox 89 L 10/19/16 04:34 Weight - most recent: 95.3 kg I&O - last 24 hours: Intake & Output 10/18/16 10/19/16 10/19/16 22:59 06:59 14:59 Intake Total 1940 Balance 1940 Lab Results last 24 hrs: Laboratory Results - last 24 hr 10/18/16 10/19/16 10/19/16 Range/Units 18:00 05:55 05:55 WBC 5.41 (4.23-9.07) K/mm3 RBC 4.23 L (4.63-6.08) M/mm3 Hgb 13.6 L (13.7-17.5) gm/L Hct 41.4 (40.1-51.0) % MCV 97.9 H (79.0-92.2) fl MCH 32.2 (25.7-32.2) pg MCHC 32.9 (32.2-35.5) g/dl RDW Std Deviation 48.2 H (35.1-43.9) fL Plt Count 189 (163-337) K/mm3 MPV 9.6 (9.4-12.3) fl Neut % (Auto) 91.1 H (34.0-67.9) % Lymph % (Auto) 7.0 L (21.8-53.1) % [place] % (Auto) 1.3 L (5.3-12.2) % Eos % (Auto) 0.2 L (0.8-7.0) Baso % (Auto) 0.2 (0.1-1.2) % Neut # (Auto) 4.93 (1.78-5.38) K/mm3 Lymph # (Auto) 0.38 L (1.32-3.57) K/mm3 [place]ison # (Auto) 0.07 L (0.30-0.82) K/mm3 Eos # (Auto) 0.01 L (0.04-0.54) K/mm3 Baso # (Auto) 0.01 (0.01-0.08) K/mm3 Sodium 139 (136-145) mEq/L Potassium 4.1 (3.5-5.1) mEq/L Chloride 103 (98-107) mEq/L Carbon Dioxide 30 (21-32) mEq/L Anion Gap 10.1 (5-15) BUN 21 H (7-18) mg/dL Creatinine 1.2 (0.7-1.3) mg/dL Est Cr Clr Drug Dosing 55.08 mL/min Estimated GFR (MDRD) > 60 (>60) mL/min BUN/Creatinine Ratio 17.5 (14-18) Glucose 160 H (80-115) mg/dL Calcium 8.3 L (8.5-10.1) mg/dL Magnesium 2.4 (1.8-2.4) mg/dl CK-MB (CK-2) 22.7 H (0-3.6) ng/ml Troponin I < 0.017 (0.00-0.056) ng/mL C-Reactive Protein 5.6 H* (<1.0) mg/dL Urine Color (Yellow) Urine Appearance (Clear) Urine pH (5.0-8.0) Ur Specific [place] (1.005-1.030) Urine Protein (Negative) Urine Glucose (UA) (Negative) Urine Ketones (Negative) Urine Occult Blood (Negative) Urine Nitrite (Negative) Urine Bilirubin (Negative) Urine Urobilinogen (0.2-1.0) Ur Leukocyte Esterase (Negative) Urine RBC (0-5) /hpf Urine WBC (0-5) /hpf Urine WBC Clumps (NOT SEEN) /hpf Ur Epithelial Cells (0-5) /hpf Urine Bacteria (FEW) /hpf Urine Mucus (FEW) /hpf Urine Yeast (NOT SEEN) 10/19/16 Range/Units 06:12 WBC (4.23-9.07) K/mm3 RBC (4.63-6.08) M/mm3 Hgb (13.7-17.5) gm/L Hct (40.1-51.0) % MCV (79.0-92.2) fl MCH (25.7-32.2) pg MCHC (32.2-35.5) g/dl RDW Std Deviation (35.1-43.9) fL Plt Count (163-337) K/mm3 MPV (9.4-12.3) fl Neut % (Auto) (34.0-67.9) % Lymph % (Auto) (21.8-53.1) % [place] % (Auto) (5.3-12.2) % Eos % (Auto) (0.8-7.0) Baso % (Auto) (0.1-1.2) % Neut # (Auto) (1.78-5.38) K/mm3 Lymph # (Auto) (1.32-3.57) K/mm3 [place] # (Auto) (0.30-0.82) K/mm3 Eos # (Auto) (0.04-0.54) K/mm3 Baso # (Auto) (0.01-0.08) K/mm3 Sodium (136-145) mEq/L Potassium (3.5-5.1) mEq/L Chloride (98-107) mEq/L Carbon Dioxide (21-32) mEq/L Anion Gap (5-15) BUN (7-18) mg/dL Creatinine (0.7-1.3) mg/dL Est Cr Clr Drug Dosing mL/min Estimated GFR (MDRD) (>60) mL/min BUN/Creatinine Ratio (14-18) Glucose (80-115) mg/dL Calcium (8.5-10.1) mg/dL Magnesium (1.8-2.4) mg/dl CK-MB (CK-2) (0-3.6) ng/ml Troponin I (0.00-0.056) ng/mL C-Reactive Protein (<1.0) mg/dL Urine Color Yellow (Yellow) Urine Appearance Clear (Clear) Urine pH 6.5 (5.0-8.0) Ur Specific [place] 1.025 (1.005-1.030) Urine Protein Negative (Negative) Urine Glucose (UA) Negative (Negative) Urine Ketones Negative (Negative) Urine Occult Blood Negative (Negative) Urine Nitrite Negative (Negative) Urine Bilirubin Negative (Negative) Urine Urobilinogen 0.2 (0.2-1.0) Ur Leukocyte Esterase Negative (Negative) Urine RBC 0-5 (0-5) /hpf Urine WBC 0-5 (0-5) /hpf Urine WBC Clumps Not seen (NOT SEEN) /hpf Ur Epithelial Cells Not seen (0-5) /hpf Urine Bacteria Rare (FEW) /hpf Urine Mucus Not seen (FEW) /hpf Urine Yeast Not seen (NOT SEEN) Med Orders - Current: Current Medications Acetaminophen (Tylenol) 650 mg PO Q4H PRN PRN Reason: Pain (Mild 1-3)/fever Hydrocodone Bitart/Acetaminophen ([place] 325-5 Mg) 1 tab PO Q4H PRN PRN Reason: Pain (moderate 4-6) Albuterol (Proventil Neb Soln) mg INH Q6H [facility] Albuterol/Ipratropium (Duoneb 3.0-0.5 Mg/3 Ml) 3 ml NEB Q4H PRN PRN Reason: Shortness Of Breath/wheezing Last Admin: 10/18/16 18:40 Dose: 3 ml Albuterol/Ipratropium (Duoneb 3.0-0.5 Mg/3 Ml) 3 ml NEB Q6HRRT [facility] Last Admin: 10/19/16 02:49 Dose: 3 ml Apixaban (Eliquis) 5 mg PO BID [facility] Last Admin: 10/18/16 21:26 Dose: 5 mg Azithromycin (Zithromax) 500 mg PO DAILY [facility] Bisacodyl (Dulcolax) 5 mg PO DAILY PRN PRN Reason: Constipation Clonazepam (Klonopin) 0.5 mg PO BEDTIME [facility] Last Admin: 10/18/16 21:27 Dose: 0.5 mg Clonazepam (Klonopin) 1 mg PO BEDTIME [facility] Clopidogrel Bisulfate (Plavix) 75 mg PO DAILY [facility] Docusate Sodium (Colace) 100 mg PO BID PRN PRN Reason: Constipation Famotidine (Pepcid) 20 mg PO BID [facility] Last Admin: 10/18/16 21:27 Dose: 20 mg Furosemide (Lasix) 40 mg PO DAILY [facility] Hydralazine HCl (Apresoline) 20 mg IVPUSH Q4H PRN PRN Reason: Hypertension Hydromorphone HCl (Dilaudid) 1 mg IVPUSH Q4H PRN PRN Reason: Other Hydroxyzine HCl (Atarax) 50 mg PO TID PRN PRN Reason: Allergies Sodium Chloride (Normal Saline) 1,000 mls @ 65 mls/hr IV ASDIRECTED [facility] Last Admin: 10/19/16 01:25 Dose: 100 mls/hr Promethazine HCl 12.5 mg/ (Sodium Chloride) 50.5 mls @ 100 mls/hr IV Q6H PRN PRN Reason: Nausea/Vomiting Ceftriaxone Sodium 1 gm/ (Sodium Chloride) 100 mls @ 200 mls/hr IV Q24H [facility] Ipratropium [place] (Atrovent 0.06% Nasal [place]) 0 ml NASBOTH BID [facility] Last Admin: 10/18/16 23:42 Dose: Not Given Lorazepam (Ativan) 1 mg IV Q6H PRN PRN Reason: Anxiety Magnesium Oxide (Magnesium Oxide) 400 mg PO BID [facility] Last Admin: 10/18/16 21:27 Dose: 400 mg Magnesium Sulfate (Pharmacy To Dose - Magnesium Replacement) 1 dose .XX ASDIRECTED [facility] Methylprednisolone Sodium Succinate (Solu-Medrol) 60 mg IVPUSH Q8H [facility] Last Admin: 10/19/16 01:25 Dose: 60 mg Metoprolol Tartrate (Lopressor) 5 mg IVPUSH Q4H PRN PRN Reason: Tachycardia Last Admin: 10/18/16 23:05 Dose: 5 mg Mirtazapine (Remeron) 15 mg PO BEDTIME [facility] Last Admin: 10/18/16 21:28 Dose: 15 mg Mometasone Furoate/Formoterol Fumar (Dulera 200-5 Mcg) 0 puff IH BID [facility] Last Admin: 10/18/16 21:16 Dose: 2 puff Naproxen (Naprosyn) 500 mg PO Q12HR [facility] Last Admin: 10/18/16 21:27 Dose: 500 mg Nitroglycerin (Nitrostat) 0.3 mg SL ASDIRECTED PRN PRN Reason: Chest Pain Non-Formulary Medication (Albuterol/Ipratropium [Combivent]) 2 puff INH Q4H PRN PRN Reason: Wheezing Non-Formulary Medication (Albuterol Sulfate [Proair Respiclick]) 2 puff INH Q4H [facility] Non-Formulary Medication (Ipratropium [place] [Ipratropium [place]]) 1 spray NASBOTH BID [facility] Non-Formulary Medication (Ranitidine) 300 mg PO QAM [facility] Ondansetron HCl (Zofran) 4 mg IV Q6H PRN PRN Reason: Nausea/Vomiting Last Admin: 10/18/16 22:32 Dose: 4 mg Paroxetine HCl (Paxil) 20 mg PO DAILY [facility] Polyethylene Glycol (Miralax) 17 gm PO DAILY PRN PRN Reason: Constipation Potassium Chloride (Pharmacy To Dose - Potassium Replacement) 1 dose .XX ASDIRECTED [facility] Potassium Chloride (Klor-Con 10) 10 meq PO BID [facility] Last Admin: 10/18/16 21:27 Dose: 10 meq Racepinephrine (S-2 2.25%) 0.5 ml NEB Q4HRRT PRN PRN Reason: Other Saccharomyces Boulardii (Florastor) 250 mg PO DAILY [facility] Senna/Docusate Sodium (Senna Plus) 1 tab PO BID PRN PRN Reason: Constipation Simvastatin (Zocor) 20 mg PO BEDTIME [facility] Last Admin: 10/18/16 21:28 Dose: 20 mg Sodium Chloride (Saline Flush) 10 ml FLUSH ONETIME PRN PRN Reason: IV FLUSH Last Admin: 10/18/16 15:36 Dose: 10 ml Tamsulosin HCl (Flomax) 0.4 mg PO DAILY [facility] Temazepam (Restoril) 15 mg PO BEDTIME PRN PRN Reason: Sleep Tiotropium [place] (Spiriva Handihaler) 18 mcg INH DAILY [facility] Verapamil HCl (Calan Sr) 120 mg PO BID [facility] Last Admin: 10/18/16 21:26 Dose: 120 mg Discontinued Medications Albuterol/Ipratropium (Duoneb 3.0-0.5 Mg/3 Ml) 3 ml NEB ONETIME ONE Stop: 10/18/16 14:04 Last Admin: 10/18/16 14:26 Dose: 3 ml Budesonide/Formoterol Fumarate (Symbicort 160-4.5 Mcg) 0 gm INH BID [facility] Levofloxacin/Dextrose 750 mg/ (Premix) 150 mls @ 100 mls/hr IV ONETIME ONE Stop: 10/18/16 15:36 Last Admin: 10/18/16 14:32 Dose: 100 mls/hr Sodium Chloride (Normal Saline) 100 mls @ 65 mls/hr IV ASDIRECTED [facility] Last Admin: 10/18/16 15:36 Dose: 65 mls/hr Azithromycin 500 mg/ Sodium (Chloride) 250 mls @ 250 mls/hr IV ONETIME ONE Stop: 10/18/16 18:16 Last Admin: 10/18/16 19:19 Dose: 250 mls/hr Ceftriaxone Sodium 2 gm/ (Sodium Chloride) 100 mls @ 200 mls/hr IV ONETIME ONE Stop: 10/18/16 17:47 Last Admin: 10/18/16 18:31 Dose: 200 mls/hr Iopamidol (Isovue-370 (76%)) 100 ml IVPUSH ONETIME ONE Stop: 10/18/16 15:06 Last Admin: 10/18/16 15:36 Dose: 100 ml Methylprednisolone Sodium Succinate (Solu-Medrol) 125 mg IVPUSH ONETIME ONE Stop: 10/18/16 17:43 Last Admin: 10/18/16 18:34 Dose: 125 mg Morphine Sulfate (Morphine) 2 mg IVPUSH Q4H PRN PRN Reason: Other Stop: 10/19/16 17:09 Prednisone (Prednisone) 60 mg PO ONETIME STA Stop: 10/18/16 14:05 Last Admin: 10/18/16 15:14 Dose: 60 mg Saccharomyces Boulardii (Florastor) 500 mg PO ONETIME ONE Stop: 10/18/16 17:20 Last Admin: 10/18/16 18:30 Dose: 500 mg - Exam Quality Assessment: supplemental oxygen General: alert, oriented, cooperative, no acute distress HEENT: Pupils equal, Pupils reactive, EOMI, Mucous membr. moist/pink Neck: supple, trachea midline, no JVD Lungs: Normal respiratory effort, Wheezing Cardiovascular: Regular Rate, Regular Rhythm Abdomen: bowel sounds present, soft, no tenderness, no distension, other (Obese) (Male) Exam: Cremasteric Reflex, Inguinal Lymphadenopathy, Testicular Tenderness (R). No: Penile Lesions, Scrotal Swelling, Scrotum Tenderness (L), Scrotum Tenderness (R), Suprapubic Fullness, Urethral Discharge Back Exam: Normal Inspection, Decreased Range of Motion Extremities: no edema, normal pulses, no tenderness/swelling, no clubbing, no cyanosis, no calf tenderness Peripheral Pulses: 2+: Dorsalis Pedis (L), Dorsalis Pedis (R) Skin: warm, dry, intact Neurological: no new focal deficit Psy/Mental Status: alert, normal affect, normal mood - Problem List Review Problem List Initiated/Reviewed/Updated: Yes - My Orders Last 24 Hours: My Active Orders 10/18/16 18:32 Racepinephrine [S-2 2.25%] 0.5 ml NEB Q4HRRT PRN 10/18/16 18:33 Albuterol/Ipratropium [Combivent] 2 puff INH Q4H PRN Nitroglycerin [Nitrostat] 0.3 mg SL ASDIRECTED PRN hydrOXYzine HCl [Atarax] 50 mg PO TID PRN 10/18/16 18:48 STREP PNEUMONIAE ANTIGEN [MREF] Stat 10/18/16 18:49 Incentive Spirometry [RT Incentive Spirometry] [RC] ASDIRECTED 10/18/16 19:37 GC/CHLAMYDIA BY PCR [MOLEC] Routine 10/18/16 21:00 Albuterol/Ipratropium [DuoNeb 3.0-0.5 MG/3 ML] 3 ml NEB Q6HRRT Apixaban [Eliquis] 5 mg PO BID ClonazePAM [KlonoPIN] 0.5 mg PO BEDTIME Famotidine [Pepcid] 20 mg PO BID Ipratropium [Atrovent 0.06% Nasal [place]] 0 ml NASBOTH BID Magnesium Oxide 400 mg PO BID Mirtazapine [Remeron] 15 mg PO BEDTIME Mometasone/Formoterol [Dulera 200-5 MCG] 0 puff IH BID Potassium Chloride [Klor-Con 10] 10 meq PO BID Simvastatin [Zocor] 20 mg PO BEDTIME Verapamil [Calan SR] 120 mg PO BID 10/19/16 02:00 methylPREDNISolone Sod Succ [Solu-MEDROL] 60 mg IVPUSH Q8H 10/19/16 08:00 Albuterol Sulfate [Proair Respiclick] 2 puff INH Q4H Albuterol [Proventil Neb Soln] 1 vial INH Q6H Ranitidine 300 mg PO QAM 10/19/16 09:00 Clopidogrel [Plavix] 75 mg PO DAILY Furosemide [Lasix] 40 mg PO DAILY Ipratropium [place] [Ipratropium [place]] 1 spray NASBOTH BID PARoxetine [Paxil] 20 mg PO DAILY Tamsulosin [Flomax] 0.4 mg PO DAILY Tiotropium [Spiriva HandiHaler] 18 mcg INH DAILY 10/19/16 21:00 ClonazePAM [KlonoPIN] 1 mg PO BEDTIME - Plan Plan:: Assessment/Plan: Acute: CAP - Bilateral Lower Lobes, Right Middle Lobe and Lingula - Received IV Levaquin in ED - Continue IV Azith/Rocephin and RT care - Sputum Cx/Sx: no specimen collected - Mycoplasma Ag Negative - Strep pneumoniae Ag test pending - IS use as directed - Follow up CXR in AM Tracheal and Mainstem Bronchi Stenosis: CT scan findings - May explained why he got cyanotic - IV Steroids and PRN Racemic Epinephrin - Monitor closely respiratory status - May need to see Pulmonology for further eval COPD: 50/50 patient - Supplemental O2 - Bronchodilators, IV Solumedrol, and Oral Mag-Ox BID - Added Mucinex 1200 mg po BID Epididymo-Orchitis - Scrotal/Testicular U/S 10/18/2016: Bilateral epididymitis and orchitis with the right testicle having more severe involvement than the left - Was seen in [place] 3 days ago with oral levaquin - Denies he is sexually active - Check MMR status - UA is negative - Screen for STD w/ Chlamydia Trachomatis and N. Gonorrhea: both negative - No under wear, elevate testicle, Ice pack TID, and Naproxen 500 mg po BID - Daily testicular assessment/measurement Hyperglycemia: Prediabetes - He is Obese - A1C is 6.4 - Diabetic consult Elevated BNP Level 777 - Hx/o ? HF with Preserved EF 60-65 % 05/11/2015 - 2D Echo pending - Heart Heart diet - 2 grams salt restriction - Repeat Level in AM Resolved: S/p Acute on Chronic Respiratory Failure - Combined Hypoxemic (ABG PO2 59) and Hypercapneic (ABG PCO2 52 and Bicar 33) - Risk factor: SWAPNIL on CPAP, COPD, Nocturnal Hypoxemia, and Obesity - On Supplemental O2 at 2.5 L NC S/p Leukoctyosis - WBC 11.15 - Likely 2/2 Above - Monitor S/p Elevated D-Dimer - CTA negative for PE - Likely from PNA S/p Clinical Dehydration - Patient is dry orally - IVF hydration - No fluid restriction for now Chronic: A-Fib on Eliquis, HR controlled HTN CAD S/p Stents Hx/o OR/CAD Nocturnal Hypoxemia with 2.5 L NC SWAPNIL on CPAP GERD BPH CARDENAS Depression Obesity Plan: He looks clinically much better Continue current treatment Routine AM Labs Continue PT/OT SW/CM for d/c planning DVT ppx: eliquis Code status: 1
[2016-10-19] MEDS: Verapamil 120 MG Tab.ER PO SCH ×2 (08:51→20:41)
[2016-10-19] MEDS: Naproxen 500 MG Tab PO SCH ×2 (08:52→20:41)
[2016-10-19] MEDS: Clopidogrel 75 MG Tab PO SCH (08:52)
[2016-10-19] MEDS: Potassium Chloride 10 MEQ Tab.ER PO SCH ×2 (08:52→20:41)
[2016-10-19] MEDS: Magnesium Oxide 400 MG Tab PO SCH ×2 (08:52→20:41)
[2016-10-19] MEDS: Apixaban 5 MG Tab PO SCH ×2 (08:52→20:40)
[2016-10-19] MEDS: Saccharomyces Boulardii (Probiotic) 250 MG Cap PO SCH (08:53)
[2016-10-19] MEDS: Azithromycin 250 MG Tab PO SCH (08:53)
[2016-10-19] MEDS: Furosemide 40 MG Tab PO SCH (08:53)
[2016-10-19] MEDS: Tamsulosin 0.4 MG Cap.ER PO SCH (08:53)
[2016-10-19] MEDS: Famotidine 20 MG Tab PO SCH ×2 (08:53→20:41)
[2016-10-19] MEDS ORDERED: Albuterol 6.7 GM Inhaler INH PRN (08:54)
[2016-10-19] MEDS: Tiotropium Inhaler 18 MCG Inhalation Powder Cap Kit of 5 INH SCH (09:01)
[2016-10-19] MEDS: Formoterol/Mometasone 200-5 MCG 8.8 GM Inhaler IH SCH ×2 (09:01→20:36)
[2016-10-19] MEDS: PARoxetine 20 MG Tab PO SCH (09:13)
[2016-10-19] MEDS: ClonazePAM 0.5 MG Tab PO SCH (09:14)
[2016-10-19] MEDS: cefTRIAXone 1 GM in Sodium Chloride 0.9% 100 ML IV SCH (09:14)
--- NOTE | 2016-10-19 11:28 | CR ---
Chest: 2 views of the chest were obtained. Comparison: Previous chest x-ray of 04/03/16. Right heart is prominent in size which is a stable finding. Areas of parenchymal density are noted within the right mid to lower lung and are slightly nodular in appearance. Pulmonary vessels are mildly congested which appears to be chronic. Bony structures are grossly intact. Lungs are hyperinflated on the lateral view compatible with emphysematous change. Mild disc space narrowing is noted within the mid to lower thoracic spine. Impression: 1. Slight densities within the right mid to lower lung possibly due to change from atelectasis and bronchitis. 2. Other portions of the chest are stable from previous study. Diagnostic code #3
[2016-10-19] MEDS ORDERED: oxyCODONE 5 MG Tab PO PRN (13:29)
[2016-10-19 14:08] LABS: C. TRACHOMATIS BY PCR NOT DETECTED; N. GONORRHOEAE BY PCR NOT DETECTED
[2016-10-19] MEDS: Ipratropium 0.06% Nasal Spray 15 ML Bottle NASBOTH SCH (14:31)
[2016-10-19] MEDS: Ipratropium 0.06% Nasal Spray 15 ML Bottle NAS SCH ×2 (14:42→20:53)
--- NOTE | 2016-10-19 15:13 | CT ---
CT chest Technique: Multiple axial sections through the chest were obtained. Intravenous contrast was utilized. Study was performed as a pulmonary angiogram protocol. Comparison: Previous noncontrast chest CT of 11/21/13 is available. Findings: Narrowing of the trachea and the both proximal mainstem bronchi is noted. This is an interval change from previous exam and uncertain as to etiology. Pulmonary arteries are well-opacified. No filling defects are seen to indicate pulmonary embolism. Diffuse emphysematous change is seen. Increased interstitial change is noted within the right lung base. Findings are most likely due to fibrosis although difficult to completely exclude pneumonia if patient has infectious symptoms. Nodular density is noted within the right lung base most likely due to small nodular area of scarring but this is an interval change from previous exam and follow-up will be recommended. Other linear densities are seen within the right lung base most likely due to areas of scarring. Minimal linear densities within the left base and lingula are also felt to be due to scarring. Impression: 1. No findings of pulmonary embolism. 2. Mild areas of increased density within the right lower lung. This is most likely due to fibrosis and scarring although difficult to completely exclude pneumonia if patient has infectious symptoms. 3. Other areas of scattered linear densities within both lungs most likely representing a combination of scarring and atelectasis. 4. Slight nodular density within the right lung base most likely due to nodular scarring although follow-up noncontrast chest CT recommended in 6 months to make sure this remains stable or disappears (this finding is not seen on prior chest CT). 5. Narrowing of the trachea and proximal mainstem bronchi. This is an interval change from prior study and etiology for this finding is not seen on this exam. Diagnostic code #9 I agree with preliminary report issued by [facility] - with additional finding of nodular density for which follow-up is recommended ([facility] report finalized on 10/18/16, 5:23 PM Central Time)
--- NOTE | 2016-10-19 15:14 | US ---
Testicular ultrasound: Multiple real-time images of the testicles were obtained. Comparison: No previous testicular ultrasound is available. Right testicle is slightly inhomogeneous. Right epididymis and left epididymis appear somewhat heterogeneous. Incidental epididymal cysts are noted on the left side. Both arterial and venous blood flow are seen within the testicles. Right-sided hydrocele is seen. Measurements: Right testicle: 4.4 x 3.4 x 3.2 cm Left testicle: 5.5 x 3.0 x 2.4 cm Impression: 1. Findings felt compatible with epididymitis on both sides. Right testicle is slightly inhomogeneous likely representing unilateral orchitis. 2. Other incidental findings. Diagnostic code #5 I agree with preliminary report issued by [facility] ([facility] report finalized on 10/18/16, 10:56 PM Central Time)
[2016-10-19] MEDS: guaiFENesin 600 MG Tab.ER PO SCH ×2 (17:39→20:40)
[2016-10-19] MEDS: Temazepam 15 MG Cap PO PRN (20:40)
[2016-10-19] MEDS: Mirtazapine 30 MG Tab PO SCH (20:40)
[2016-10-19] MEDS: Simvastatin 20 MG Tab PO SCH (20:41)
[2016-10-19] MEDS: ClonazePAM 1 MG Tab PO SCH (20:41)
[2016-10-20] MEDS: Sodium Chloride 0.9% 1,000 ML IV SCH (02:00)
[2016-10-20] MEDS: Albuterol/Ipratropium 3.0-0.5 MG/3 ML Neb Soln NEB SCH ×4 (02:29→20:46)
[2016-10-20] MEDS: methylPREDNISolone Sodium Succinate 40 MG/1 ML SDV IVPUSH SCH ×3 (04:31→17:03)
[2016-10-20] MEDS: cefTRIAXone 1 GM in Sodium Chloride 0.9% 100 ML IV SCH (08:08)
[2016-10-20] MEDS: Apixaban 5 MG Tab PO SCH ×2 (08:08→20:37)
[2016-10-20] MEDS: PARoxetine 20 MG Tab PO SCH (08:09)
[2016-10-20] MEDS: guaiFENesin 600 MG Tab.ER PO SCH ×2 (08:09→20:39)
[2016-10-20] MEDS: Clopidogrel 75 MG Tab PO SCH (08:09)
[2016-10-20] MEDS: Potassium Chloride 10 MEQ Tab.ER PO SCH ×2 (08:09→20:39)
[2016-10-20] MEDS: Azithromycin 250 MG Tab PO SCH (08:09)
[2016-10-20] MEDS: Saccharomyces Boulardii (Probiotic) 250 MG Cap PO SCH (08:09)
[2016-10-20] MEDS: ClonazePAM 0.5 MG Tab PO SCH (08:09)
[2016-10-20] MEDS: Famotidine 20 MG Tab PO SCH ×2 (08:09→20:37)
[2016-10-20] MEDS: Tamsulosin 0.4 MG Cap.ER PO SCH (08:09)
[2016-10-20] MEDS: Magnesium Oxide 400 MG Tab PO SCH ×2 (08:10→20:40)
[2016-10-20] MEDS: Naproxen 500 MG Tab PO SCH ×2 (08:10→20:38)
[2016-10-20] MEDS: Verapamil 120 MG Tab.ER PO SCH ×2 (08:10→20:38)
[2016-10-20] MEDS: Furosemide 40 MG Tab PO SCH (08:10)
[2016-10-20] MEDS: Ipratropium 0.06% Nasal Spray 15 ML Bottle NAS SCH ×2 (08:11→22:28)
[2016-10-20] MEDS: Tiotropium Inhaler 18 MCG Inhalation Powder Cap Kit of 5 INH SCH (09:50)
[2016-10-20] MEDS: Formoterol/Mometasone 200-5 MCG 8.8 GM Inhaler IH SCH ×2 (09:50→20:46)
--- NOTE | 2016-10-20 09:51 | CR ---
Chest: Two views of the chest were obtained. Comparison: Previous chest x-ray of 10/18/16. Slight atelectasis within the right lung base is seen. Findings are improved from previous exam. Pulmonary vessels are slightly increased which remain stable. Cardiac silhouette and mediastinum are unchanged in appearance. Bony structures are grossly intact. Impression: 1. Improved atelectasis within the right lung base. 2. Other portions of the chest are stable. Nothing acute is otherwise seen. Diagnostic code #2
--- NOTE | 2016-10-20 11:05 | PCM.PN ---
- General Info Admission Dx/Problem (Free Text): Acute on Chronic Respiratory Failure and CAP Subjective Update: Follow Up Functional Status: Reports: pain controlled, tolerating diet, ambulating, urinating. Denies: new symptoms - Patient Data Vitals - most recent: Last Vital Signs Temp 36.9 C 10/20/16 07:43 Pulse 71 10/20/16 08:10 Resp 20 10/20/16 07:43 BP 112/64 10/20/16 08:10 Pulse Ox 92 L 10/20/16 09:50 Weight - most recent: 98.067 kg I&O - last 24 hours: Intake & Output 10/19/16 10/20/16 10/20/16 22:59 06:59 14:59 Intake Total 1920 1979 Output Total 1300 600 Balance 620 1379 Lab Results last 24 hrs: Laboratory Results - last 24 hr 10/19/16 10/20/16 10/20/16 Range/Units 11:40 06:38 06:38 WBC 10.06 H (4.23-9.07) K/mm3 RBC 4.04 L (4.63-6.08) M/mm3 Hgb 12.9 L (13.7-17.5) gm/L Hct 39.8 L (40.1-51.0) % MCV 98.5 H (79.0-92.2) fl MCH 31.9 (25.7-32.2) pg MCHC 32.4 (32.2-35.5) g/dl RDW Std Deviation 50.3 H (35.1-43.9) fL Plt Count 198 (163-337) K/mm3 MPV 9.6 (9.4-12.3) fl Neut % (Auto) 90.4 H (34.0-67.9) % Lymph % (Auto) 4.1 L (21.8-53.1) % [place] % (Auto) 5.2 L (5.3-12.2) % Eos % (Auto) 0 L (0.8-7.0) Baso % (Auto) 0.0 L (0.1-1.2) % Neut # (Auto) 9.10 H (1.78-5.38) K/mm3 Lymph # (Auto) 0.41 L (1.32-3.57) K/mm3 [place] # (Auto) 0.52 (0.30-0.82) K/mm3 Eos # (Auto) 0.00 L (0.04-0.54) K/mm3 Baso # (Auto) 0.00 L (0.01-0.08) K/mm3 Manual Slide Review Normal smear Sodium 138 (136-145) mEq/L Potassium 3.9 (3.5-5.1) mEq/L Chloride 104 (98-107) mEq/L Carbon Dioxide 30 (21-32) mEq/L Anion Gap 7.9 (5-15) BUN 28 H (7-18) mg/dL Creatinine 1.3 (0.7-1.3) mg/dL Est Cr Clr Drug Dosing 50.85 mL/min Estimated GFR (MDRD) 55 (>60) mL/min BUN/Creatinine Ratio 21.5 H (14-18) Glucose 276 H (80-115) mg/dL Calcium 8.5 (8.5-10.1) mg/dL Magnesium 2.3 (1.8-2.4) mg/dl C-Reactive Protein 2.7 H* (<1.0) mg/dL B-Natriuretic Peptide (0-100) pg/mL C trachomatis DNA (PCR) Not detected N gonorrhoeae DNA (PCR) Not detected 10/20/16 Range/Units 06:38 WBC (4.23-9.07) K/mm3 RBC (4.63-6.08) M/mm3 Hgb (13.7-17.5) gm/L Hct (40.1-51.0) % MCV (79.0-92.2) fl MCH (25.7-32.2) pg MCHC (32.2-35.5) g/dl RDW Std Deviation (35.1-43.9) fL Plt Count (163-337) K/mm3 MPV (9.4-12.3) fl Neut % (Auto) (34.0-67.9) % Lymph % (Auto) (21.8-53.1) % [place] % (Auto) (5.3-12.2) % Eos % (Auto) (0.8-7.0) Baso % (Auto) (0.1-1.2) % Neut # (Auto) (1.78-5.38) K/mm3 Lymph # (Auto) (1.32-3.57) K/mm3 [place] # (Auto) (0.30-0.82) K/mm3 Eos # (Auto) (0.04-0.54) K/mm3 Baso # (Auto) (0.01-0.08) K/mm3 Manual Slide Review Sodium (136-145) mEq/L Potassium (3.5-5.1) mEq/L Chloride (98-107) mEq/L Carbon Dioxide (21-32) mEq/L Anion Gap (5-15) BUN (7-18) mg/dL Creatinine (0.7-1.3) mg/dL Est Cr Clr Drug Dosing mL/min Estimated GFR (MDRD) (>60) mL/min BUN/Creatinine Ratio (14-18) Glucose (80-115) mg/dL Calcium (8.5-10.1) mg/dL Magnesium (1.8-2.4) mg/dl C-Reactive Protein (<1.0) mg/dL B-Natriuretic Peptide 493 H (0-100) pg/mL C trachomatis DNA (PCR) N gonorrhoeae DNA (PCR) Robert Results last 24 hrs: Microbiology 10/19/16 19:00 Gram Stain - Final Sputum - Expectorated Med Orders - Current: Current Medications Albuterol (Proventil Hfa) 0 gm INH Q4H PRN PRN Reason: wheezing Albuterol/Ipratropium (Duoneb 3.0-0.5 Mg/3 Ml) 3 ml NEB Q4H PRN PRN Reason: Shortness Of Breath/wheezing Last Admin: 10/18/16 18:40 Dose: 3 ml Albuterol/Ipratropium (Duoneb 3.0-0.5 Mg/3 Ml) 3 ml NEB Q6HRRT [facility] Last Admin: 10/20/16 09:49 Dose: 3 ml Apixaban (Eliquis) 5 mg PO BID [facility] Last Admin: 10/20/16 08:08 Dose: 5 mg Azithromycin (Zithromax) 500 mg PO DAILY [facility] Last Admin: 10/20/16 08:09 Dose: 500 mg Bisacodyl (Dulcolax) 5 mg PO DAILY PRN PRN Reason: Constipation Last Admin: 10/19/16 20:40 Dose: 5 mg Clonazepam (Klonopin) 1 mg PO BEDTIME [facility] Last Admin: 10/19/16 20:41 Dose: 1 mg Clonazepam (Klonopin) 0.5 mg PO DAILY [facility] Last Admin: 10/20/16 08:09 Dose: 0.5 mg Clopidogrel Bisulfate (Plavix) 75 mg PO DAILY [facility] Last Admin: 10/20/16 08:09 Dose: 75 mg Docusate Sodium (Colace) 100 mg PO BID PRN PRN Reason: Constipation Famotidine (Pepcid) 20 mg PO BID [facility] Last Admin: 10/20/16 08:09 Dose: 20 mg Furosemide (Lasix) 40 mg PO DAILY [facility] Last Admin: 10/20/16 08:10 Dose: 40 mg Guaifenesin (Mucinex) 1,200 mg PO BID [facility] Last Admin: 10/20/16 08:09 Dose: 1,200 mg Hydralazine HCl (Apresoline) 20 mg IVPUSH Q4H PRN PRN Reason: Hypertension Hydromorphone HCl (Dilaudid) 1 mg IVPUSH Q4H PRN PRN Reason: Other Last Admin: 10/19/16 11:32 Dose: 1 mg Hydroxyzine HCl (Atarax) 50 mg PO TID PRN PRN Reason: Allergies Promethazine HCl 12.5 mg/ (Sodium Chloride) 50.5 mls @ 100 mls/hr IV Q6H PRN PRN Reason: Nausea/Vomiting Ceftriaxone Sodium 1 gm/ (Sodium Chloride) 100 mls @ 200 mls/hr IV Q24H [facility] Last Admin: 10/20/16 08:08 Dose: 200 mls/hr Ipratropium [place] (Atrovent 0.06% Nasal [place]) 0 ml NIGHAT BID [facility] Last Admin: 10/20/16 08:11 Dose: 2 spray Lorazepam (Ativan) 1 mg IV Q6H PRN PRN Reason: Anxiety Magnesium Oxide (Magnesium Oxide) 400 mg PO BID [facility] Last Admin: 10/20/16 08:10 Dose: 400 mg Magnesium Sulfate (Pharmacy To Dose - Magnesium Replacement) 1 dose .XX ASDIRECTED [facility] Methylprednisolone Sodium Succinate (Solu-Medrol) 60 mg IVPUSH Q8H [facility] Last Admin: 10/20/16 04:31 Dose: 60 mg Metoprolol Tartrate (Lopressor) 5 mg IVPUSH Q4H PRN PRN Reason: Tachycardia Last Admin: 10/18/16 23:05 Dose: 5 mg Mirtazapine (Remeron) 30 mg PO BEDTIME [facility] Last Admin: 10/19/16 20:40 Dose: 30 mg Mometasone Furoate/Formoterol Fumar (Dulera 200-5 Mcg) 0 puff IH BID [facility] Last Admin: 10/20/16 09:50 Dose: 2 puff Naproxen (Naprosyn) 500 mg PO Q12HR [facility] Last Admin: 10/20/16 08:10 Dose: 500 mg Ondansetron HCl (Zofran) 4 mg IV Q6H PRN PRN Reason: Nausea/Vomiting Last Admin: 10/18/16 22:32 Dose: 4 mg Oxycodone HCl (Oxycodone) 5 mg PO Q4H PRN PRN Reason: Pain Paroxetine HCl (Paxil) 20 mg PO DAILY [facility] Last Admin: 10/20/16 08:09 Dose: 20 mg Polyethylene Glycol (Miralax) 17 gm PO DAILY PRN PRN Reason: Constipation Potassium Chloride (Pharmacy To Dose - Potassium Replacement) 1 dose .XX ASDIRECTED [facility] Potassium Chloride (Klor-Con 10) 10 meq PO BID [facility] Last Admin: 10/20/16 08:09 Dose: 10 meq Racepinephrine (S-2 2.25%) 0.5 ml NEB Q4HRRT PRN PRN Reason: Other Saccharomyces Boulardii (Florastor) 250 mg PO DAILY [facility] Last Admin: 10/20/16 08:09 Dose: 250 mg Senna/Docusate Sodium (Senna Plus) 1 tab PO BID PRN PRN Reason: Constipation Simvastatin (Zocor) 20 mg PO BEDTIME [facility] Last Admin: 10/19/16 20:41 Dose: 20 mg Sodium Chloride (Saline Flush) 10 ml FLUSH ONETIME PRN PRN Reason: IV FLUSH Last Admin: 10/18/16 15:36 Dose: 10 ml Tamsulosin HCl (Flomax) 0.4 mg PO DAILY [facility] Last Admin: 10/20/16 08:09 Dose: 0.4 mg Temazepam (Restoril) 15 mg PO BEDTIME PRN PRN Reason: Sleep Last Admin: 10/19/16 20:40 Dose: 15 mg Tiotropium [place] (Spiriva Handihaler) 18 mcg INH DAILY [facility] Last Admin: 10/20/16 09:50 Dose: 1 cap Verapamil HCl (Calan Sr) 120 mg PO BID [facility] Last Admin: 10/20/16 08:10 Dose: 120 mg Discontinued Medications Acetaminophen (Tylenol) 650 mg PO Q4H PRN PRN Reason: Pain (Mild 1-3)/fever Hydrocodone Bitart/Acetaminophen ([place] 325-5 Mg) 1 tab PO Q4H PRN PRN Reason: Pain (moderate 4-6) Albuterol (Proventil Neb Soln) mg INH Q6H [facility] Albuterol/Ipratropium (Duoneb 3.0-0.5 Mg/3 Ml) 3 ml NEB ONETIME ONE Stop: 10/18/16 14:04 Last Admin: 10/18/16 14:26 Dose: 3 ml Budesonide/Formoterol Fumarate (Symbicort 160-4.5 Mcg) 0 gm INH BID [facility] Clonazepam (Klonopin) 0.5 mg PO BEDTIME [facility] Last Admin: 10/18/16 21:27 Dose: 0.5 mg Levofloxacin/Dextrose 750 mg/ (Premix) 150 mls @ 100 mls/hr IV ONETIME ONE Stop: 10/18/16 15:36 Last Admin: 10/18/16 14:32 Dose: 100 mls/hr Sodium Chloride (Normal Saline) 1,000 mls @ 65 mls/hr IV ASDIRECTED [facility] Last Admin: 10/20/16 02:00 Dose: 100 mls/hr Sodium Chloride (Normal Saline) 100 mls @ 65 mls/hr IV ASDIRECTED [facility] Last Admin: 10/18/16 15:36 Dose: 65 mls/hr Azithromycin 500 mg/ Sodium (Chloride) 250 mls @ 250 mls/hr IV ONETIME ONE Stop: 10/18/16 18:16 Last Admin: 10/18/16 19:19 Dose: 250 mls/hr Ceftriaxone Sodium 2 gm/ (Sodium Chloride) 100 mls @ 200 mls/hr IV ONETIME ONE Stop: 10/18/16 17:47 Last Admin: 10/18/16 18:31 Dose: 200 mls/hr Iopamidol (Isovue-370 (76%)) 100 ml IVPUSH ONETIME ONE Stop: 10/18/16 15:06 Last Admin: 10/18/16 15:36 Dose: 100 ml Ipratropium [place] (Atrovent 0.06% Nasal [place]) 0 ml NASBOTH BID [facility] Last Admin: 10/19/16 14:31 Dose: Not Given Methylprednisolone Sodium Succinate (Solu-Medrol) 125 mg IVPUSH ONETIME ONE Stop: 10/18/16 17:43 Last Admin: 10/18/16 18:34 Dose: 125 mg Mirtazapine (Remeron) 15 mg PO BEDTIME [facility] Last Admin: 10/18/16 21:28 Dose: 15 mg Morphine Sulfate (Morphine) 2 mg IVPUSH Q4H PRN PRN Reason: Other Stop: 10/19/16 17:09 Nitroglycerin (Nitrostat) 0.3 mg SL ASDIRECTED PRN PRN Reason: Chest Pain Non-Formulary Medication (Albuterol/Ipratropium [Combivent]) 2 puff INH Q4H PRN PRN Reason: Wheezing Non-Formulary Medication ([facility]anitidine) [facility] [place] Last Admin: 10/19/16 09:54 Dose: Not Given Prednisone (Prednisone) 60 mg PO ONETIME STA Stop: 10/18/16 14:05 Last Admin: 10/18/16 15:14 Dose: 60 mg Saccharomyces Boulardii (Florastor) 500 mg PO ONETIME ONE Stop: 10/18/16 17:20 Last Admin: 10/18/16 18:30 Dose: 500 mg - My Orders Last 24 Hours: My Active Orders 10/19/16 11:39 Communication Order [RC] DAILY 10/19/16 13:29 oxyCODONE 5 mg PO Q4H PRN 10/19/16 17:30 guaiFENesin [Mucinex] 1,200 mg PO BID 10/19/16 21:00 ClonazePAM [KlonoPIN] 1 mg PO BEDTIME Mirtazapine [Remeron] 30 mg PO BEDTIME - Plan Plan:: Assessment/Plan: Acute: CAP - Bilateral Lower Lobes, Right Middle Lobe and Lingula - Received IV Levaquin in ED - Continue IV Azith/Rocephin and RT care - Sputum Cx/Sx: no specimen collected - Mycoplasma Ag Negative - Strep pneumoniae Ag test pending - IS use as directed - Follow up CXR in AM Tracheal and Mainstem Bronchi Stenosis: CT scan findings - May explained why he got cyanotic - IV Steroids and PRN Racemic Epinephrin - Monitor closely respiratory status - May need to see Pulmonology for further eval COPD: 50/50 patient - Supplemental O2 - Bronchodilators, IV Solumedrol, and Oral Mag-Ox BID - Added Mucinex 1200 mg po BID Epididymo-Orchitis - Scrotal/Testicular U/S 10/18/2016: Bilateral epididymitis and orchitis with the right testicle having more severe involvement than the left - Was seen in [place] 3 days ago with oral levaquin - Denies he is sexually active - Check MMR status - UA is negative - Screen for STD w/ Chlamydia Trachomatis and N. Gonorrhea: both negative - No under wear, elevate testicle, Ice pack TID, and Naproxen 500 mg po BID - Daily testicular assessment/measurement Hyperglycemia: Prediabetes - He is Obese - A1C is 6.4 - Diabetic consult Elevated BNP Level 777 - Hx/o ? HF with Preserved EF 60-65 % 05/11/2015 - 2D Echo pending - Heart Heart diet - 2 grams salt restriction - Repeat Level in AM Resolved: S/p Acute on Chronic Respiratory Failure - Combined Hypoxemic (ABG PO2 59) and Hypercapneic (ABG PCO2 52 and Bicar 33) - Risk factor: SWAPNIL on CPAP, COPD, Nocturnal Hypoxemia, and Obesity - On Supplemental O2 at 2.5 L NC S/p Leukoctyosis - WBC 11.15 - Likely 2/2 Above - Monitor S/p Elevated D-Dimer - CTA negative for PE - Likely from PNA S/p Clinical Dehydration - Patient is dry orally - IVF hydration - No fluid restriction for now Chronic: A-Fib on Eliquis, HR controlled HTN CAD S/p Stents Hx/o TX/CAD Nocturnal Hypoxemia with 2.5 L NC SWAPNIL on CPAP GERD BPH CARDENAS Depression Obesity Plan: He looks clinically much better Continue current treatment Routine AM Labs Continue PT/OT SW/CM for d/c planning DVT ppx: eliquis Code status: 1
--- NOTE | 2016-10-20 12:01 | PCM.PN ---
<Alka Glover - Last Filed: 10/20/16 11:55> - General Info Date of Service: 10/20/16 Admission Dx/Problem (Free Text): Acute on Chronic Respiratory Failure and CAP Subjective Update: Follow Up Functional Status: Reports: pain controlled, tolerating diet, ambulating, urinating - Patient Data Vitals - most recent: Last Vital Signs Temp 98.4 F 10/20/16 07:43 Pulse 71 10/20/16 08:10 Resp 20 10/20/16 07:43 BP 112/64 10/20/16 08:10 Pulse Ox 92 L 10/20/16 09:50 Weight - most recent: 98.067 kg I&O - last 24 hours: Intake & Output 10/19/16 10/20/16 10/20/16 22:59 06:59 14:59 Intake Total 1920 1979 Output Total 1300 600 Balance 620 1379 Lab Results last 24 hrs: Laboratory Results - last 24 hr 10/19/16 10/20/16 10/20/16 Range/Units 11:40 06:38 06:38 WBC 10.06 H (4.23-9.07) K/mm3 RBC 4.04 L (4.63-6.08) M/mm3 Hgb 12.9 L (13.7-17.5) gm/L Hct 39.8 L (40.1-51.0) % MCV 98.5 H (79.0-92.2) fl MCH 31.9 (25.7-32.2) pg MCHC 32.4 (32.2-35.5) g/dl RDW Std Deviation 50.3 H (35.1-43.9) fL Plt Count 198 (163-337) K/mm3 MPV 9.6 (9.4-12.3) fl Neut % (Auto) 90.4 H (34.0-67.9) % Lymph % (Auto) 4.1 L (21.8-53.1) % Desha % (Auto) 5.2 L (5.3-12.2) % Eos % (Auto) 0 L (0.8-7.0) Baso % (Auto) 0.0 L (0.1-1.2) % Neut # (Auto) 9.10 H (1.78-5.38) K/mm3 Lymph # (Auto) 0.41 L (1.32-3.57) K/mm3 Desha # (Auto) 0.52 (0.30-0.82) K/mm3 Eos # (Auto) 0.00 L (0.04-0.54) K/mm3 Baso # (Auto) 0.00 L (0.01-0.08) K/mm3 Manual Slide Review Normal smear Sodium 138 (136-145) mEq/L Potassium 3.9 (3.5-5.1) mEq/L Chloride 104 (98-107) mEq/L Carbon Dioxide 30 (21-32) mEq/L Anion Gap 7.9 (5-15) BUN 28 H (7-18) mg/dL Creatinine 1.3 (0.7-1.3) mg/dL Est Cr Clr Drug Dosing 50.85 mL/min Estimated GFR (MDRD) 55 (>60) mL/min BUN/Creatinine Ratio 21.5 H (14-18) Glucose 276 H (80-115) mg/dL Calcium 8.5 (8.5-10.1) mg/dL Magnesium 2.3 (1.8-2.4) mg/dl C-Reactive Protein 2.7 H* (<1.0) mg/dL B-Natriuretic Peptide (0-100) pg/mL C trachomatis DNA (PCR) Not detected N gonorrhoeae DNA (PCR) Not detected 10/20/16 Range/Units 06:38 WBC (4.23-9.07) K/mm3 RBC (4.63-6.08) M/mm3 Hgb (13.7-17.5) gm/L Hct (40.1-51.0) % MCV (79.0-92.2) fl MCH (25.7-32.2) pg MCHC (32.2-35.5) g/dl RDW Std Deviation (35.1-43.9) fL Plt Count (163-337) K/mm3 MPV (9.4-12.3) fl Neut % (Auto) (34.0-67.9) % Lymph % (Auto) (21.8-53.1) % Desha % (Auto) (5.3-12.2) % Eos % (Auto) (0.8-7.0) Baso % (Auto) (0.1-1.2) % Neut # (Auto) (1.78-5.38) K/mm3 Lymph # (Auto) (1.32-3.57) K/mm3 Desha # (Auto) (0.30-0.82) K/mm3 Eos # (Auto) (0.04-0.54) K/mm3 Baso # (Auto) (0.01-0.08) K/mm3 Manual Slide Review Sodium (136-145) mEq/L Potassium (3.5-5.1) mEq/L Chloride (98-107) mEq/L Carbon Dioxide (21-32) mEq/L Anion Gap (5-15) BUN (7-18) mg/dL Creatinine (0.7-1.3) mg/dL Est Cr Clr Drug Dosing mL/min Estimated GFR (MDRD) (>60) mL/min BUN/Creatinine Ratio (14-18) Glucose (80-115) mg/dL Calcium (8.5-10.1) mg/dL Magnesium (1.8-2.4) mg/dl C-Reactive Protein (<1.0) mg/dL B-Natriuretic Peptide 493 H (0-100) pg/mL C trachomatis DNA (PCR) N gonorrhoeae DNA (PCR) Robert Results last 24 hrs: Microbiology 10/19/16 19:00 Gram Stain - Final Sputum - Expectorated Med Orders - Current: Current Medications Albuterol (Proventil Hfa) 0 gm INH Q4H PRN PRN Reason: wheezing Albuterol/Ipratropium (Duoneb 3.0-0.5 Mg/3 Ml) 3 ml NEB Q4H PRN PRN Reason: Shortness Of Breath/wheezing Last Admin: 10/18/16 18:40 Dose: 3 ml Albuterol/Ipratropium (Duoneb 3.0-0.5 Mg/3 Ml) 3 ml NEB Q6HRRT [facility] Last Admin: 10/20/16 09:49 Dose: 3 ml Apixaban (Eliquis) 5 mg PO BID [facility] Last Admin: 10/20/16 08:08 Dose: 5 mg Azithromycin (Zithromax) 500 mg PO DAILY [facility] Last Admin: 10/20/16 08:09 Dose: 500 mg Bisacodyl (Dulcolax) 5 mg PO DAILY PRN PRN Reason: Constipation Last Admin: 10/19/16 20:40 Dose: 5 mg Clonazepam (Klonopin) 1 mg PO BEDTIME [facility] Last Admin: 10/19/16 20:41 Dose: 1 mg Clonazepam (Klonopin) 0.5 mg PO DAILY [facility] Last Admin: 10/20/16 08:09 Dose: 0.5 mg Clopidogrel Bisulfate (Plavix) 75 mg PO DAILY [facility] Last Admin: 10/20/16 08:09 Dose: 75 mg Docusate Sodium (Colace) 100 mg PO BID PRN PRN Reason: Constipation Famotidine (Pepcid) 20 mg PO BID [facility] Last Admin: 10/20/16 08:09 Dose: 20 mg Furosemide (Lasix) 40 mg PO DAILY [facility] Last Admin: 10/20/16 08:10 Dose: 40 mg Guaifenesin (Mucinex) 1,200 mg PO BID [facility] Last Admin: 10/20/16 08:09 Dose: 1,200 mg Hydralazine HCl (Apresoline) 20 mg IVPUSH Q4H PRN PRN Reason: Hypertension Hydromorphone HCl (Dilaudid) 1 mg IVPUSH Q4H PRN PRN Reason: Other Last Admin: 10/19/16 11:32 Dose: 1 mg Hydroxyzine HCl (Atarax) 50 mg PO TID PRN PRN Reason: Allergies Promethazine HCl 12.5 mg/ (Sodium Chloride) 50.5 mls @ 100 mls/hr IV Q6H PRN PRN Reason: Nausea/Vomiting Ceftriaxone Sodium 1 gm/ (Sodium Chloride) 100 mls @ 200 mls/hr IV Q24H [facility] Last Admin: 10/20/16 08:08 Dose: 200 mls/hr Ipratropium [place] (Atrovent 0.06% Nasal [place]) 0 ml NIGHAT BID [facility] Last Admin: 10/20/16 08:11 Dose: 2 spray Lorazepam (Ativan) 1 mg IV Q6H PRN PRN Reason: Anxiety Magnesium Oxide (Magnesium Oxide) 400 mg PO BID [facility] Last Admin: 10/20/16 08:10 Dose: 400 mg Magnesium Sulfate (Pharmacy To Dose - Magnesium Replacement) 1 dose .XX ASDIRECTED [facility] Methylprednisolone Sodium Succinate (Solu-Medrol) 60 mg IVPUSH Q8H [facility] Last Admin: 10/20/16 11:12 Dose: 60 mg Metoprolol Tartrate (Lopressor) 5 mg IVPUSH Q4H PRN PRN Reason: Tachycardia Last Admin: 10/18/16 23:05 Dose: 5 mg Mirtazapine (Remeron) 30 mg PO BEDTIME [facility] Last Admin: 10/19/16 20:40 Dose: 30 mg Mometasone Furoate/Formoterol Fumar (Dulera 200-5 Mcg) 0 puff IH BID [facility] Last Admin: 10/20/16 09:50 Dose: 2 puff Naproxen (Naprosyn) 500 mg PO Q12HR [facility] Last Admin: 10/20/16 08:10 Dose: 500 mg Ondansetron HCl (Zofran) 4 mg IV Q6H PRN PRN Reason: Nausea/Vomiting Last Admin: 10/18/16 22:32 Dose: 4 mg Oxycodone HCl (Oxycodone) 5 mg PO Q4H PRN PRN Reason: Pain Paroxetine HCl (Paxil) 20 mg PO DAILY [facility] Last Admin: 10/20/16 08:09 Dose: 20 mg Polyethylene Glycol (Miralax) 17 gm PO DAILY PRN PRN Reason: Constipation Potassium Chloride (Pharmacy To Dose - Potassium Replacement) 1 dose .XX ASDIRECTED [facility] Potassium Chloride (Klor-Con 10) 10 meq PO BID [facility] Last Admin: 10/20/16 08:09 Dose: 10 meq Racepinephrine (S-2 2.25%) 0.5 ml NEB Q4HRRT PRN PRN Reason: Other Saccharomyces Boulardii (Florastor) 250 mg PO DAILY [facility] Last Admin: 10/20/16 08:09 Dose: 250 mg Senna/Docusate Sodium (Senna Plus) 1 tab PO BID PRN PRN Reason: Constipation Simvastatin (Zocor) 20 mg PO BEDTIME [facility] Last Admin: 10/19/16 20:41 Dose: 20 mg Sodium Chloride (Saline Flush) 10 ml FLUSH ONETIME PRN PRN Reason: IV FLUSH Last Admin: 10/18/16 15:36 Dose: 10 ml Tamsulosin HCl (Flomax) 0.4 mg PO DAILY [facility] Last Admin: 10/20/16 08:09 Dose: 0.4 mg Temazepam (Restoril) 15 mg PO BEDTIME PRN PRN Reason: Sleep Last Admin: 10/19/16 20:40 Dose: 15 mg Tiotropium [place] (Spiriva Handihaler) 18 mcg INH DAILY [facility] Last Admin: 10/20/16 09:50 Dose: 1 cap Verapamil HCl (Calan Sr) 120 mg PO BID [facility] Last Admin: 10/20/16 08:10 Dose: 120 mg Discontinued Medications Acetaminophen (Tylenol) 650 mg PO Q4H PRN PRN Reason: Pain (Mild 1-3)/fever Hydrocodone Bitart/Acetaminophen ([place] 325-5 Mg) 1 tab PO Q4H PRN PRN Reason: Pain (moderate 4-6) Albuterol (Proventil Neb Soln) mg INH Q6H [facility] Albuterol/Ipratropium (Duoneb 3.0-0.5 Mg/3 Ml) 3 ml NEB ONETIME ONE Stop: 10/18/16 14:04 Last Admin: 10/18/16 14:26 Dose: 3 ml Budesonide/Formoterol Fumarate (Symbicort 160-4.5 Mcg) 0 gm INH BID [facility] Clonazepam (Klonopin) 0.5 mg PO BEDTIME [facility] Last Admin: 10/18/16 21:27 Dose: 0.5 mg Levofloxacin/Dextrose 750 mg/ (Premix) 150 mls @ 100 mls/hr IV ONETIME ONE Stop: 10/18/16 15:36 Last Admin: 10/18/16 14:32 Dose: 100 mls/hr Sodium Chloride (Normal Saline) 1,000 mls @ 65 mls/hr IV ASDIRECTED [facility] Last Admin: 10/20/16 02:00 Dose: 100 mls/hr Sodium Chloride (Normal Saline) 100 mls @ 65 mls/hr IV ASDIRECTED [facility] Last Admin: 10/18/16 15:36 Dose: 65 mls/hr Azithromycin 500 mg/ Sodium (Chloride) 250 mls @ 250 mls/hr IV ONETIME ONE Stop: 10/18/16 18:16 Last Admin: 10/18/16 19:19 Dose: 250 mls/hr Ceftriaxone Sodium 2 gm/ (Sodium Chloride) 100 mls @ 200 mls/hr IV ONETIME ONE Stop: 10/18/16 17:47 Last Admin: 10/18/16 18:31 Dose: 200 mls/hr Iopamidol (Isovue-370 (76%)) 100 ml IVPUSH ONETIME ONE Stop: 10/18/16 15:06 Last Admin: 10/18/16 15:36 Dose: 100 ml Ipratropium [place] (Atrovent 0.06% Nasal [place]) 0 ml NASBOTH BID [facility] Last Admin: 10/19/16 14:31 Dose: Not Given Methylprednisolone Sodium Succinate (Solu-Medrol) 125 mg IVPUSH ONETIME ONE Stop: 10/18/16 17:43 Last Admin: 10/18/16 18:34 Dose: 125 mg Mirtazapine (Remeron) 15 mg PO BEDTIME [facility] Last Admin: 10/18/16 21:28 Dose: 15 mg Morphine Sulfate (Morphine) 2 mg IVPUSH Q4H PRN PRN Reason: Other Stop: 10/19/16 17:09 Nitroglycerin (Nitrostat) 0.3 mg SL ASDIRECTED PRN PRN Reason: Chest Pain Non-Formulary Medication (Albuterol/Ipratropium [Combivent]) 2 puff INH Q4H PRN PRN Reason: Wheezing Non-Formulary Medication (Ranitidine) 300 mg PO QAM [facility] Last Admin: 10/19/16 09:54 Dose: Not Given Prednisone (Prednisone) 60 mg PO ONETIME [facility]A Stop: 10/18/16 14:05 Last Admin: 10/18/16 15:14 Dose: 60 mg Saccharomyces Boulardii (Florastor) 500 mg PO ONETIME ONE Stop: 10/18/16 17:20 Last Admin: 10/18/16 18:30 Dose: 500 mg - Exam Lungs: Wheezing - Problem List Review Problem List Initiated/Reviewed/Updated: Yes - Assessment Assessment:: Patient presented to the [place] [facility] on 10/16/16, with right testicular swelling and pain. The patient had a fever of 103 F. The patient has a history of COPD with fatigue. Once admitted a scrotal ultrasound was done and showed a right hydrocele with adequate arterial and venous blood flow. The patient was on supplement oxygen after admission and discontinued it on the evening of . Ronchi and wheezing were noted on physical exam on the left anterior lower lobe. No wheezing noted on the right and posterior lungs were not examined. C- RP is elevated and white blood count is also elevated, leading to the possibility of infection. Chest X-ray report reveals some actelctasis in the right lower lobe of the lung, but no signs of infection. The patient looks content, fever has resolved and hydrocele is reduced from 28 cm on admission to 20 cm on 10/20/16. - Plan Plan:: Assessment/Plan: Acute: CAP - Bilateral Lower Lobes, Right Middle Lobe and Lingula - Received IV Levaquin in ED - Continue IV Azith/Rocephin and RT care - Sputum Cx/Sx: no specimen collected - Mycoplasma Ag Negative - Strep pneumoniae Ag test pending - IS use as directed - CXR oon 10/20/06 revealed no signs of infection. Some right lower lobe atelectasis Tracheal and Mainstem Bronchi Stenosis: CT scan findings - May explained why he got cyanotic - IV Steroids and PRN Racemic Epinephrin - Monitor closely respiratory status - May need to see Pulmonology for further eval COPD: 50/50 patient - Supplemental oxygen is discontinued on 10/19/06. Patient is having no distress on room air - Bronchodilators, IV Solumedrol, and Oral Mag-Ox BID - Added Mucinex 1200 mg po BID Epididymo-Orchitis - Scrotal/Testicular U/S 10/18/2016: Bilateral epididymitis and orchitis with the right testicle having more severe involvement than the left Swelling has decreased from 28 cm to 20 cm as of 10/20/06 - Was seen in [place] 3 days ago with oral levaquin - Denies he is sexually active - Check MMR status - UA is negative - Screen for STD w/ Chlamydia Trachomatis and N. Gonorrhea: both negative - No under wear, elevate testicle, Ice pack TID, and Naproxen 500 mg po BID - Daily testicular assessment/measurement Hyperglycemia: Prediabetes - He is Obese - A1C is 6.4 - Diabetic consult Elevated BNP Level 777 - Hx/o ? HF with Preserved EF 60-65 % 05/11/2015 - 2D Echo pending - Heart Heart diet - 2 grams salt restriction - Repeat Level in AM Resolved: S/p Acute on Chronic Respiratory Failure - Combined Hypoxemic (ABG PO2 59) and Hypercapneic (ABG PCO2 52 and Bicar 33) - Risk factor: SWAPNIL on CPAP, COPD, Nocturnal Hypoxemia, and Obesity - On Supplemental O2 at 2.5 L NC S/p Leukoctyosis - WBC 10.06 (decreased from previous reading) - Likely 2/2 Above - Monitor S/p Elevated D-Dimer - CTA negative for PE - Likely from PNA S/p Clinical Dehydration - Patient is dry orally - IVF hydration - No fluid restriction for now Chronic: A-Fib on Eliquis, HR controlled HTN CAD S/p Stents Hx/o NC/CAD Nocturnal Hypoxemia with 2.5 L NC SWAPNIL on CPAP GERD BPH CARDENAS Depression Obesity Plan: He looks clinically much better Continue current treatment Routine AM Labs Continue PT/OT SW/CM for d/c planning DVT ppx: eliquis Code status: 1 Patient continues to improve. No signs of fever, CBC is improving and swelling is reduced. Chest X-ray is insignificant Recommend continue antibiotic therapy and a continued course to be taken at home. Reduce patient activity level for at least a week to allow further reduction in swelling. <Salvador Rincon T - Last Filed: 10/20/16 22:50> - General Info Functional Status: Reports: pain controlled, tolerating diet, ambulating, urinating. Denies: new symptoms - Review of Systems General: Denies: Fever, Weakness, Fatigue, Malaise, Chills HEENT: Reports: no symptoms Pulmonary: Reports: wheezing. Denies: shortness of breath Cardiovascular: Denies: Chest Pain, Palpitations, Dyspnea on Exertion Gastrointestinal: Denies: Abdominal pain, Nausea, Vomiting Genitourinary: Reports: no symptoms Musculoskeletal: Reports: no symptoms Skin: Denies: pruritis, rash Neurological: Denies: Confusion, Difficulty Walking, Weakness, Gait Disturbance Psychiatric: Denies: depression, anxiety, hallucinations Systems Review Comment:: No overnight or acute issues. He slept well and feels better. He is sating well on RA. He has no new complaints. - Patient Data Vitals - most recent: Last Vital Signs Temp 36.9 C 10/20/16 20:09 Pulse 111 H 10/20/16 20:38 Resp 18 10/20/16 20:09 BP 120/78 10/20/16 20:38 Pulse Ox 91 L 10/20/16 20:47 I&O - last 24 hours: Intake & Output 10/20/16 10/20/16 10/20/16 06:59 14:59 22:59 Intake Total 1979 1850 Output Total 600 1675 Balance 1379 175 Lab Results last 24 hrs: Laboratory Results - last 24 hr 10/20/16 10/20/16 10/20/16 Range/Units 06:38 06:38 06:38 WBC 10.06 H (4.23-9.07) K/mm3 RBC 4.04 L (4.63-6.08) M/mm3 Hgb 12.9 L (13.7-17.5) gm/L Hct 39.8 L (40.1-51.0) % MCV 98.5 H (79.0-92.2) fl MCH 31.9 (25.7-32.2) pg MCHC 32.4 (32.2-35.5) g/dl RDW Std Deviation 50.3 H (35.1-43.9) fL Plt Count 198 (163-337) K/mm3 MPV 9.6 (9.4-12.3) fl Neut % (Auto) 90.4 H (34.0-67.9) % Lymph % (Auto) 4.1 L (21.8-53.1) % Desha % (Auto) 5.2 L (5.3-12.2) % Eos % (Auto) 0 L (0.8-7.0) Baso % (Auto) 0.0 L (0.1-1.2) % Neut # (Auto) 9.10 H (1.78-5.38) K/mm3 Lymph # (Auto) 0.41 L (1.32-3.57) K/mm3 Desha # (Auto) 0.52 (0.30-0.82) K/mm3 Eos # (Auto) 0.00 L (0.04-0.54) K/mm3 Baso # (Auto) 0.00 L (0.01-0.08) K/mm3 Manual Slide Review Normal smear Sodium 138 (136-145) mEq/L Potassium 3.9 (3.5-5.1) mEq/L Chloride 104 (98-107) mEq/L Carbon Dioxide 30 (21-32) mEq/L Anion Gap 7.9 (5-15) BUN 28 H (7-18) mg/dL Creatinine 1.3 (0.7-1.3) mg/dL Est Cr Clr Drug Dosing 50.85 mL/min Estimated GFR (MDRD) 55 (>60) mL/min BUN/Creatinine Ratio 21.5 H (14-18) Glucose 276 H (80-115) mg/dL Calcium 8.5 (8.5-10.1) mg/dL Magnesium 2.3 (1.8-2.4) mg/dl C-Reactive Protein 2.7 H* (<1.0) mg/dL B-Natriuretic Peptide 493 H (0-100) pg/mL Robert Results last 24 hrs: Microbiology 10/19/16 19:00 Gram Stain - Final Sputum - Expectorated Sputum Culture - Preliminary YEAST Med Orders - Current: Current Medications Albuterol (Proventil Hfa) 0 gm INH Q4H PRN PRN Reason: wheezing Albuterol/Ipratropium (Duoneb 3.0-0.5 Mg/3 Ml) 3 ml NEB Q4H PRN PRN Reason: Shortness Of Breath/wheezing Last Admin: 10/18/16 18:40 Dose: 3 ml Albuterol/Ipratropium (Duoneb 3.0-0.5 Mg/3 Ml) 3 ml NEB Q6HRRT [facility] Last Admin: 10/20/16 20:46 Dose: 3 ml Apixaban (Eliquis) 5 mg PO BID [facility] Last Admin: 10/20/16 20:37 Dose: 5 mg Azithromycin (Zithromax) 500 mg PO DAILY [facility] Last Admin: 10/20/16 08:09 Dose: 500 mg Bisacodyl (Dulcolax) 5 mg PO DAILY PRN PRN Reason: Constipation Last Admin: 10/19/16 20:40 Dose: 5 mg Clonazepam (Klonopin) 1 mg PO BEDTIME [facility] Last Admin: 10/20/16 20:38 Dose: 1 mg Clonazepam (Klonopin) 0.5 mg PO DAILY [facility] Last Admin: 10/20/16 08:09 Dose: 0.5 mg Clopidogrel Bisulfate (Plavix) 75 mg PO DAILY [facility] Last Admin: 10/20/16 08:09 Dose: 75 mg Docusate Sodium (Colace) 100 mg PO BID PRN PRN Reason: Constipation Famotidine (Pepcid) 20 mg PO BID [facility] Last Admin: 10/20/16 20:37 Dose: 20 mg Furosemide (Lasix) 40 mg PO DAILY [facility] Last Admin: 10/20/16 08:10 Dose: 40 mg Guaifenesin (Mucinex) 1,200 mg PO BID [facility] Last Admin: 10/20/16 20:39 Dose: 1,200 mg Hydralazine HCl (Apresoline) 20 mg IVPUSH Q4H PRN PRN Reason: Hypertension Hydromorphone HCl (Dilaudid) 1 mg IVPUSH Q4H PRN PRN Reason: Other Last Admin: 10/19/16 11:32 Dose: 1 mg Hydroxyzine HCl (Atarax) 50 mg PO TID PRN PRN Reason: Allergies Promethazine HCl 12.5 mg/ (Sodium Chloride) 50.5 mls @ 100 mls/hr IV Q6H PRN PRN Reason: Nausea/Vomiting Ceftriaxone Sodium 1 gm/ (Sodium Chloride) 100 mls @ 200 mls/hr IV Q24H [facility] Last Admin: 10/20/16 08:08 Dose: 200 mls/hr Ipratropium [place] (Atrovent 0.06% Nasal [place]) 0 ml NIGHAT BID [facility] Last Admin: 10/20/16 08:11 Dose: 2 spray Lorazepam (Ativan) 1 mg IV Q6H PRN PRN Reason: Anxiety Magnesium Oxide (Magnesium Oxide) 400 mg PO BID [facility] Last Admin: 10/20/16 20:40 Dose: 400 mg Magnesium Sulfate (Pharmacy To Dose - Magnesium Replacement) 1 dose .XX ASDIRECTED [facility] Methylprednisolone Sodium Succinate (Solu-Medrol) 60 mg IVPUSH Q8H [facility] Last Admin: 10/20/16 17:03 Dose: 60 mg Metoprolol Tartrate (Lopressor) 5 mg IVPUSH Q4H PRN PRN Reason: Tachycardia Last Admin: 10/18/16 23:05 Dose: 5 mg Mirtazapine (Remeron) 30 mg PO BEDTIME [facility] Last Admin: 10/20/16 20:40 Dose: 30 mg Mometasone Furoate/Formoterol Fumar (Dulera 200-5 Mcg) 0 puff IH BID [facility] Last Admin: 10/20/16 20:46 Dose: 2 puff Naproxen (Naprosyn) 500 mg PO Q12HR [facility] Last Admin: 10/20/16 20:38 Dose: 500 mg Ondansetron HCl (Zofran) 4 mg IV Q6H PRN PRN Reason: Nausea/Vomiting Last Admin: 10/18/16 22:32 Dose: 4 mg Oxycodone HCl (Oxycodone) 5 mg PO Q4H PRN PRN Reason: Pain Paroxetine HCl (Paxil) 20 mg PO DAILY [facility] Last Admin: 10/20/16 08:09 Dose: 20 mg Polyethylene Glycol (Miralax) 17 gm PO DAILY PRN PRN Reason: Constipation Potassium Chloride (Pharmacy To Dose - Potassium Replacement) 1 dose .XX ASDIRECTED [facility] Potassium Chloride (Klor-Con 10) 10 meq PO BID [facility] Last Admin: 10/20/16 20:39 Dose: 10 meq Racepinephrine (S-2 2.25%) 0.5 ml NEB Q4HRRT PRN PRN Reason: Other Saccharomyces Boulardii (Florastor) 250 mg PO DAILY [facility] Last Admin: 10/20/16 08:09 Dose: 250 mg Senna/Docusate Sodium (Senna Plus) 1 tab PO BID PRN PRN Reason: Constipation Simvastatin (Zocor) 20 mg PO BEDTIME [facility] Last Admin: 10/20/16 20:39 Dose: 20 mg Sodium Chloride (Saline Flush) 10 ml FLUSH ONETIME PRN PRN Reason: IV FLUSH Last Admin: 10/18/16 15:36 Dose: 10 ml Tamsulosin HCl (Flomax) 0.4 mg PO DAILY [facility] Last Admin: 10/20/16 08:09 Dose: 0.4 mg Temazepam (Restoril) 15 mg PO BEDTIME PRN PRN Reason: Sleep Last Admin: 10/19/16 20:40 Dose: 15 mg Tiotropium [place] (Spiriva Handihaler) 18 mcg INH DAILY [facility] Last Admin: 10/20/16 09:50 Dose: 1 cap Verapamil HCl (Calan Sr) 120 mg PO BID [facility] Last Admin: 10/20/16 20:38 Dose: 120 mg Discontinued Medications Acetaminophen (Tylenol) 650 mg PO Q4H PRN PRN Reason: Pain (Mild 1-3)/fever Hydrocodone Bitart/Acetaminophen ([place] 325-5 Mg) 1 tab PO Q4H PRN PRN Reason: Pain (moderate 4-6) Albuterol (Proventil Neb Soln) mg INH Q6H [facility] Albuterol/Ipratropium (Duoneb 3.0-0.5 Mg/3 Ml) 3 ml NEB ONETIME ONE Stop: 10/18/16 14:04 Last Admin: 10/18/16 14:26 Dose: 3 ml Budesonide/Formoterol Fumarate (Symbicort 160-4.5 Mcg) 0 gm INH BID [facility] Clonazepam (Klonopin) 0.5 mg PO BEDTIME [facility] Last Admin: 10/18/16 21:27 Dose: 0.5 mg Levofloxacin/Dextrose 750 mg/ (Premix) 150 mls @ 100 mls/hr IV ONETIME ONE Stop: 10/18/16 15:36 Last Admin: 10/18/16 14:32 Dose: 100 mls/hr Sodium Chloride (Normal Saline) 1,000 mls @ 65 mls/hr IV ASDIRECTED [facility] Last Admin: 10/20/16 02:00 Dose: 100 mls/hr Sodium Chloride (Normal Saline) 100 mls @ 65 mls/hr IV ASDIRECTED [facility] Last Admin: 10/18/16 15:36 Dose: 65 mls/hr Azithromycin 500 mg/ Sodium (Chloride) 250 mls @ 250 mls/hr IV ONETIME ONE Stop: 10/18/16 18:16 Last Admin: 10/18/16 19:19 Dose: 250 mls/hr Ceftriaxone Sodium 2 gm/ (Sodium Chloride) 100 mls @ 200 mls/hr IV ONETIME ONE Stop: 10/18/16 17:47 Last Admin: 10/18/16 18:31 Dose: 200 mls/hr Iopamidol (Isovue-370 (76%)) 100 ml IVPUSH ONETIME ONE Stop: 10/18/16 15:06 Last Admin: 10/18/16 15:36 Dose: 100 ml Ipratropium [place] (Atrovent 0.06% Nasal [place]) 0 ml NASBOTH BID [facility] Last Admin: 10/19/16 14:31 Dose: Not Given Methylprednisolone Sodium Succinate (Solu-Medrol) 125 mg IVPUSH ONETIME ONE Stop: 10/18/16 17:43 Last Admin: 10/18/16 18:34 Dose: 125 mg Mirtazapine (Remeron) 15 mg PO BEDTIME [facility] Last Admin: 10/18/16 21:28 Dose: 15 mg Morphine Sulfate (Morphine) 2 mg IVPUSH Q4H PRN PRN Reason: Other Stop: 10/19/16 17:09 Nitroglycerin (Nitrostat) 0.3 mg SL ASDIRECTED PRN PRN Reason: Chest Pain Non-Formulary Medication (Albuterol/Ipratropium [Combivent]) 2 puff INH Q4H PRN PRN Reason: Wheezing Non-Formulary Medication (Ranitidine) 300 mg PO QAM [facility] Last Admin: 10/19/16 09:54 Dose: Not Given Prednisone (Prednisone) 60 mg PO ONETIME STA Stop: 10/18/16 14:05 Last Admin: 10/18/16 15:14 Dose: 60 mg Saccharomyces Boulardii (Florastor) 500 mg PO ONETIME ONE Stop: 10/18/16 17:20 Last Admin: 10/18/16 18:30 Dose: 500 mg - Exam Quality Assessment: No: supplemental oxygen General: alert, oriented, cooperative, no acute distress, other (Obese) HEENT: Pupils equal, Pupils reactive, EOMI, Mucous membr. moist/pink Neck: supple, trachea midline, no JVD, other (No accessory muscle use) Abdomen: bowel sounds present, soft, no tenderness, no distension, other (Obese) (Male) Exam: Inguinal Lymphadenopathy, Scrotal Swelling (improving), Testicular Tenderness (R) Back Exam: Normal Inspection, Decreased Range of Motion Extremities: normal pulses, no tenderness/swelling, no clubbing, no cyanosis, edema Peripheral Pulses: 2+: Dorsalis Pedis (L), Dorsalis Pedis (R) Skin: warm, dry, intact Neurological: no new focal deficit Psy/Mental Status: alert, normal affect, normal mood - Problem List Review Problem List Initiated/Reviewed/Updated: Yes - My Orders Last 24 Hours: My Active Orders 10/20/16 15:41 Consult to Academic Dean [Consult to Diabetic Nurse Specialist] [CONS] Routine - Plan Plan:: Assessment/Plan: Acute: Bronchitis w/ Pulmonary Candidiasis - Bilateral Lower Lobes, Right Middle Lobe and Lingula - Received IV Levaquin in ED - Continue IV Azith/Rocephin and RT care - Sputum Cx/Sx: Yeast prelim - Mycoplasma Ag Negative - Strep pneumoniae Ag test pending - IS use as directed - CXR on 10/20/06 improved atelectasis on right lung base Tracheal and Mainstem Bronchi Stenosis: CT scan findings - May explained why he got cyanotic - IV Steroids and PRN Racemic Epinephrin - Monitor closely respiratory status - May need to see Pulmonology for further eval COPD: 50/50 patient - Supplemental oxygen is discontinued on 10/19/06. Patient is having no distress on room air - Bronchodilators, IV Solumedrol, and Oral Mag-Ox BID - Added Mucinex 1200 mg po BID Epididymo-Orchitis - Scrotal/Testicular U/S 10/18/2016: Bilateral epididymitis and orchitis with the right testicle having more severe involvement than the left - Swelling has decreased from 28 cm to 20 cm as of 10/20/06 - Was seen in [place] 3 days ago, was given oral levaquin and oxycodone - Denies he is sexually active - Pending MMR status - UA is negative - Screen for STD w/ Chlamydia Trachomatis and N. Gonorrhea: both negative - No under wear, elevate testicle, Ice pack TID, and Naproxen 500 mg po BID - Daily testicular assessment/measurement Hyperglycemia: Prediabetes - He is Obese - A1C is 6.4 - Diabetic consult Elevated BNP Level 777--> 493 - Hx/o ? HF with Preserved EF 60-65 % 05/11/2015 - 2D Echo: LVEF 55-60%. Severe biatrial Dilation. No significant change from 05/08/2015 - Heart Healthy diet - 2 grams salt restriction Resolved: S/p Acute on Chronic Respiratory Failure - Combined Hypoxemic (ABG PO2 59) and Hypercapneic (ABG PCO2 52 and Bicar 33) - Risk factor: SWAPNIL on CPAP, COPD, Nocturnal Hypoxemia, and Obesity - On Supplemental O2 at 2.5 L NC S/p Leukoctyosis - WBC 10.06 (decreased from previous reading) - Likely 2/2 Above - Monitor S/p Elevated D-Dimer - CTA negative for PE - Likely from PNA S/p Clinical Dehydration - Patient is dry orally - IVF hydration - No fluid restriction for now Chronic: A-Fib on Eliquis, HR controlled HTN CAD S/p Stents Hx/o NC/CAD Nocturnal Hypoxemia with 2.5 L NC SWAPNIL on CPAP GERD BPH CARDENAS Depression Obesity Plan: Patient improved significantly He is clinically stable Continue current treatment Routine AM Labs Continue PT/OT SW/CM for d/c planning DVT ppx: eliquis Code status: 1 May consider d/c if he continues to to well in am.
[2016-10-20] MEDS: ClonazePAM 1 MG Tab PO SCH (20:38)
[2016-10-20] MEDS: Simvastatin 20 MG Tab PO SCH (20:39)
[2016-10-20] MEDS: Mirtazapine 30 MG Tab PO SCH (20:40)
[2016-10-20] MEDS: Temazepam 15 MG Cap PO PRN (22:38)
[2016-10-20] MEDS ORDERED: Fluconazole/Normal Saline 200 MG in Premix Bag 1 BAG IV SCH (23:00)
[2016-10-21] MEDS: Albuterol/Ipratropium 3.0-0.5 MG/3 ML Neb Soln NEB SCH ×2 (02:36→09:28)
--- NOTE | 2016-10-21 08:19 | PCM.DCSUM1 ---
Discharge Summary - Hospital Course Brief History: This is a 65 year old white male with past medical history of chronic atrial fibrillation on eliquis, coronary artery disease, IL with history of stents placement, heart failure with preserved ejection fraction, obstructive sleep apnea on CPAP, nocturnal hypoxemia on 2.5 L nasal cannula, chronic dyspnea on exertion, GERD, BPH, chronic headaches, anxiety/depression, and obesity with BMI over 30 who comes to the emergency department with complains of referred chest pain. He was admitted for medical management of PNA and Epididymo-Orchitis. - Discharge Data Discharge Date: 10/21/16 Discharge Disposition: Home, Self-Care 01 Condition: Good - Discharge Diagnosis/Problem(s) (1) Pulmonary candidiasis SNOMED Code(s): 5566166 ICD Code: B37.1 - PULMONARY CANDIDIASIS Status: Acute (2) Tracheal stenosis SNOMED Code(s): 15260036 ICD Code: J39.8 - OTHER SPECIFIED DISEASES OF UPPER RESPIRATORY TRACT Status: Acute (3) COPD (chronic obstructive pulmonary disease) with chronic bronchitis SNOMED Code(s): 596216808 ICD Code: J44.9 - CHRONIC OBSTRUCTIVE PULMONARY DISEASE, UNSPECIFIED Status : Chronic (4) Epididymo-orchitis SNOMED Code(s): 483927290 ICD Code: N45.3 - EPIDIDYMO-ORCHITIS Status: Acute (5) Hydrocele of testis SNOMED Code(s): 36357949 ICD Code: N43.3 - HYDROCELE, UNSPECIFIED Status: Acute (6) Hyperglycemia SNOMED Code(s): 78237640 ICD Code: R73.9 - HYPERGLYCEMIA, UNSPECIFIED Status: Chronic (7) Acute respiratory failure SNOMED Code(s): 93350678 ICD Code: J96.00 - ACUTE RESPIRATORY FAILURE, UNSP W HYPOXIA OR HYPERCAPNIA Status: Resolved Qualifiers: Respiratory failure complication: hypoxia and hypercapnia Qualified Code(s) : J96.01 - Acute respiratory failure with hypoxia; J96.02 - Acute respiratory failure with hypercapnia (8) Elevated d-dimer SNOMED Code(s): 084145941 ICD Code: R79.89 - OTHER SPECIFIED ABNORMAL FINDINGS OF BLOOD CHEMISTRY Status: Acute (9) Dehydration SNOMED Code(s): 25218288 ICD Code: E86.0 - DEHYDRATION Status: Acute - Patient Summary/Data Operative Procedure(s) Performed: None Complications: None Consults: Consultations 10/20/16 15:41 Consult to Staffing Rn [Consult to Diabetic Nurse Specialist] [CONS] Routine Labs Pending at D/C: None Hospital Course: Patient was initially admitted for medical management of presumptive pneumonia along with acute on chronic respiratory failure. Patient carries a history of advanced COPD. He was provided supportive care and intravenous bronchodilators along with antibiotics to improve his symptoms. His follow-up chest x-ray revealed no obvious infiltrates. From there, we felt the patient had bronchitis related to his underlying COPD. He was negative for mycoplasma but his sputum grew Amisha albicans. The patient was treated with Diflucan for antifungal regimen. He will be discharged with additional course of Diflucan to complete a 2 weeks of anti-fungal regimen. As for his epididymo-orchitis, he was initially seen at [place] for right-sided epididymo-orchitis. However on follow-ultrasound here, he was found to have bilateral infection. Patient was not sexually active and he denied any men-to- men contact. His gonorrhea and chlamydia workup were both negative. However he improved with appropriate antibiotic provided to him on admission. His hospital course was fairly uncomplicated. The rest of his chronic medical illness remained stable during this admission. He wanted to leave yesterday but we requested for him to stay for one more night so he can get additional dose of his of antibiotic. Patient is now stable for discharge. He will have a taper dose of Solu-Medrol along with Diflucan to complete for 2 weeks. He is to resume his oral Levaquin that was initially prescribed to him in [place] for treatment of his epididymo- orchitis. Patient has been set up to see a urologist sometime in November in [place] through the [place] system. Patient was advised to come back or seek immediate care should his symptoms persist or get worse. Patient expressed understanding and in agreement with the plans as discussed above. All questions were answered. - Patient Instructions Diet: Heart Healthy Diet, Usual Diet as Tolerated Activity: As Tolerated Driving: Do Not Drive Showering/Bathing: May Shower Notify Provider of: Fever, Increased Pain, Swelling and Redness, Nausea and/or Vomiting Other/Special Instructions: - Please take all medications as directed. - Recommend you see a urologist after discharge. - Continue with testicular elevation and ice pack at least 3x/day. - If your symptoms persists or gets worse, call your family doctor or go to the nearest medical facility. - Discharge Plan Prescriptions/Med Rec: Fluconazole [Diflucan] 100 mg PO DAILY #14 tablet methylPREDNISolone [Medrol] 4 mg PO ASDIRECTED #1 dosepk Home Medications: Home Meds Clopidogrel [Plavix] 75 mg PO DAILY 04/12/14 [History] Furosemide [Lasix] 40 mg PO DAILY 04/12/14 [History] PARoxetine HCl [Paxil] 20 mg PO DAILY 04/12/14 [History] Potassium Chloride 10 meq PO BID 04/12/14 [History] Tamsulosin HCl [Flomax] 0.4 mg PO BEDTIME 04/12/14 [History] Tiotropium [Spiriva HandiHaler] 1 cap INH DAILY 04/12/14 [History] ClonazePAM [KlonoPIN] 0.5 mg PO QAM 02/03/15 [History] Simvastatin [Zocor] 20 mg PO BEDTIME 02/03/15 [History] Mirtazapine 30 mg PO BEDTIME 05/09/15 [History] hydrOXYzine HCl [Atarax] 50 mg PO TID PRN 08/13/15 [History] Apixaban [Eliquis] 5 mg PO BID 01/23/16 [History] Budesonide/Formoterol [Symbicort 160-4.5 MCG] 2 puff INH BID 01/23/16 [History] Magnesium Oxide 420 mg PO DAILY 01/23/16 [History] Verapamil [Calan SR] 120 mg PO BID 01/23/16 [History] Albuterol Sulfate 1 vial INH Q6H 10/18/16 [History] Albuterol Sulfate [Proair Respiclick] 2 puff INH Q4H PRN 10/18/16 [History] ClonazePAM [KlonoPIN] 1 mg PO BEDTIME 10/18/16 [History] Ipratropium [place] 1 spray NASBOTH BID 10/18/16 [History] Ranitidine [Zantac] 300 mg PO QAM 10/18/16 [History] Fluconazole [Diflucan] 100 mg PO DAILY #14 tablet 10/21/16 [Rx] methylPREDNISolone [Medrol] 4 mg PO ASDIRECTED #1 dosepk 10/21/16 [Rx] Patient Handouts: Chronic Obstructive Pulmonary Disease, [id number], Clopidogrel tablets, Epididymitis, Apixaban oral tablets, Atrial Fibrillation, [id number] Referrals: Xuan Ignacio DO [Primary Care Provider] - (Please make own appointment in 1 week.) - Discharge Summary/Plan Comment DC Time >30 min.: Yes (45 mins) Discharge Summary/Plan Comment: Discharge to Home - General Info Date of Service: 10/21/16 Admission Dx/Problem (Free Text: Acute on Chronic Respiratory Failure and CAP Subjective Update: Follow Up Functional Status: Reports: Pain Controlled, Tolerating Diet, Ambulating, Urinating. Denies: New Symptoms - Review of Systems General: Denies: Fever, Weakness, Fatigue, Malaise, Chills HEENT: Reports: No Symptoms Pulmonary: Denies: Shortness of Breath Cardiovascular: Denies: Chest Pain Gastrointestinal: Denies: Abdominal Pain, Nausea, Vomiting Genitourinary: Reports: No Symptoms Musculoskeletal: Reports: No Symptoms Skin: Reports: No Symptoms Neurological: Denies: Confusion, Difficulty Walking, Weakness, Gait Disturbance Psychiatric: Denies: Depression, Anxiety, Agitation, Hallucinations Systems Review Comment: No overnight or acute issues. He is doing much better. He is ready to go home. - Patient Data Vitals - Most Recent: Last Vital Signs Temp 36.5 C 10/21/16 04:22 Pulse 71 10/21/16 04:22 Resp 16 10/21/16 04:22 BP 108/86 10/21/16 04:22 Pulse Ox 93 L 10/21/16 04:22 Weight - Most Recent: 98.928 kg I&O - Last 24 hours: Intake & Output 10/20/16 10/21/16 10/21/16 22:59 06:59 14:59 Intake Total 1850 550 Output Total 1675 Balance 175 550 Lab Results - Last 24 hrs: Laboratory Results - last 24 hr 10/21/16 10/21/16 Range/Units 05:30 05:30 WBC 10.34 H (4.23-9.07) K/mm3 RBC 4.09 L (4.63-6.08) M/mm3 Hgb 13.3 L (13.7-17.5) gm/L Hct 40.0 L (40.1-51.0) % MCV 97.8 H (79.0-92.2) fl MCH 32.5 H (25.7-32.2) pg MCHC 33.3 (32.2-35.5) g/dl RDW Std Deviation 50.2 H (35.1-43.9) fL Plt Count 195 (163-337) K/mm3 MPV 9.6 (9.4-12.3) fl Neut % (Auto) 90.7 H (34.0-67.9) % Lymph % (Auto) 4.5 L (21.8-53.1) % Ponce % (Auto) 4.4 L (5.3-12.2) % Eos % (Auto) 0 L (0.8-7.0) Baso % (Auto) 0.0 L (0.1-1.2) % Neut # (Auto) 9.38 H (1.78-5.38) K/mm3 Lymph # (Auto) 0.47 L (1.32-3.57) K/mm3 Ponce # (Auto) 0.45 (0.30-0.82) K/mm3 Eos # (Auto) 0.00 L (0.04-0.54) K/mm3 Baso # (Auto) 0.00 L (0.01-0.08) K/mm3 Manual Slide Review Abnormal smear Sodium 138 (136-145) mEq/L Potassium 4.5 (3.5-5.1) mEq/L Chloride 103 (98-107) mEq/L Carbon Dioxide 25 (21-32) mEq/L Anion Gap 14.5 (5-15) BUN 28 H (7-18) mg/dL Creatinine 1.2 (0.7-1.3) mg/dL Est Cr Clr Drug Dosing 55.08 mL/min Estimated GFR (MDRD) > 60 (>60) mL/min BUN/Creatinine Ratio 23.3 H (14-18) Glucose 339 H (80-115) mg/dL Calcium 8.4 L (8.5-10.1) mg/dL Magnesium 2.4 (1.8-2.4) mg/dl C-Reactive Protein 1.2 H* (<1.0) mg/dL CHRISTOPHER Results - Last 24 hrs: Microbiology 10/19/16 19:00 Gram Stain - Final Sputum - Expectorated Sputum Culture - Preliminary YEAST Med Orders - Current: Current Medications Albuterol (Proventil Hfa) 0 gm INH Q4H PRN PRN Reason: wheezing Albuterol/Ipratropium (Duoneb 3.0-0.5 Mg/3 Ml) 3 ml NEB Q4H PRN PRN Reason: Shortness Of Breath/wheezing Last Admin: 10/18/16 18:40 Dose: 3 ml Albuterol/Ipratropium (Duoneb 3.0-0.5 Mg/3 Ml) 3 ml NEB Q6HRRT [facility] Last Admin: 10/21/16 02:36 Dose: 3 ml Apixaban (Eliquis) 5 mg PO BID [facility] Last Admin: 10/20/16 20:37 Dose: 5 mg Azithromycin (Zithromax) 500 mg PO DAILY [facility] Last Admin: 10/20/16 08:09 Dose: 500 mg Bisacodyl (Dulcolax) 5 mg PO DAILY PRN PRN Reason: Constipation Last Admin: 10/19/16 20:40 Dose: 5 mg Clonazepam (Klonopin) 1 mg PO BEDTIME [facility] Last Admin: 10/20/16 20:38 Dose: 1 mg Clonazepam (Klonopin) 0.5 mg PO DAILY [facility] Last Admin: 10/20/16 08:09 Dose: 0.5 mg Clopidogrel Bisulfate (Plavix) 75 mg PO DAILY [facility] Last Admin: 10/20/16 08:09 Dose: 75 mg Docusate Sodium (Colace) 100 mg PO BID PRN PRN Reason: Constipation Famotidine (Pepcid) 20 mg PO BID [facility] Last Admin: 10/20/16 20:37 Dose: 20 mg Furosemide (Lasix) 40 mg PO DAILY [facility] Last Admin: 10/20/16 08:10 Dose: 40 mg Guaifenesin (Mucinex) 1,200 mg PO BID [facility] Last Admin: 10/20/16 20:39 Dose: 1,200 mg Hydralazine HCl (Apresoline) 20 mg IVPUSH Q4H PRN PRN Reason: Hypertension Hydromorphone HCl (Dilaudid) 1 mg IVPUSH Q4H PRN PRN Reason: Other Last Admin: 10/19/16 11:32 Dose: 1 mg Hydroxyzine HCl (Atarax) 50 mg PO TID PRN PRN Reason: Allergies Promethazine HCl 12.5 mg/ (Sodium Chloride) 50.5 mls @ 100 mls/hr IV Q6H PRN PRN Reason: Nausea/Vomiting Ceftriaxone Sodium 1 gm/ (Sodium Chloride) 100 mls @ 200 mls/hr IV Q24H [facility] Last Admin: 10/20/16 08:08 Dose: 200 mls/hr Fluconazole/Sodium Chloride (200 mg/ Premix) 100 mls @ 100 mls/hr IV Q24H [facility] Last Admin: 10/21/16 00:09 Dose: 100 mls/hr Ipratropium [place] (Atrovent 0.06% Nasal [place]) 0 ml NIGHAT BID [facility] Last Admin: 10/20/16 22:28 Dose: 1 spray Lorazepam (Ativan) 1 mg IV Q6H PRN PRN Reason: Anxiety Magnesium Oxide (Magnesium Oxide) 400 mg PO BID [facility] Last Admin: 10/20/16 20:40 Dose: 400 mg Magnesium Sulfate (Pharmacy To Dose - Magnesium Replacement) 1 dose .XX ASDIRECTED [facility] Methylprednisolone Sodium Succinate (Solu-Medrol) 40 mg IVPUSH BID [facility] Metoprolol Tartrate (Lopressor) 5 mg IVPUSH Q4H PRN PRN Reason: Tachycardia Last Admin: 10/18/16 23:05 Dose: 5 mg Mirtazapine (Remeron) 30 mg PO BEDTIME [facility] Last Admin: 10/20/16 20:40 Dose: 30 mg Mometasone Furoate/Formoterol Fumar (Dulera 200-5 Mcg) 0 puff IH BID [facility] Last Admin: 10/20/16 20:46 Dose: 2 puff Naproxen (Naprosyn) 500 mg PO Q12HR [facility] Last Admin: 10/20/16 20:38 Dose: 500 mg Ondansetron HCl (Zofran) 4 mg IV Q6H PRN PRN Reason: Nausea/Vomiting Last Admin: 10/18/16 22:32 Dose: 4 mg Oxycodone HCl (Oxycodone) 5 mg PO Q4H PRN PRN Reason: Pain Paroxetine HCl (Paxil) 20 mg PO DAILY [facility] Last Admin: 10/20/16 08:09 Dose: 20 mg Polyethylene Glycol (Miralax) 17 gm PO DAILY PRN PRN Reason: Constipation Potassium Chloride (Pharmacy To Dose - Potassium Replacement) 1 dose .XX ASDIRECTED [facility] Potassium Chloride (Klor-Con 10) 10 meq PO BID [facility] Last Admin: 10/20/16 20:39 Dose: 10 meq Racepinephrine (S-2 2.25%) 0.5 ml NEB Q4HRRT PRN PRN Reason: Other Saccharomyces Boulardii (Florastor) 250 mg PO DAILY [facility] Last Admin: 10/20/16 08:09 Dose: 250 mg Senna/Docusate Sodium (Senna Plus) 1 tab PO BID PRN PRN Reason: Constipation Simvastatin (Zocor) 20 mg PO BEDTIME [facility] Last Admin: 10/20/16 20:39 Dose: 20 mg Sodium Chloride (Saline Flush) 10 ml FLUSH ONETIME PRN PRN Reason: IV FLUSH Last Admin: 10/18/16 15:36 Dose: 10 ml Tamsulosin HCl (Flomax) 0.4 mg PO DAILY [facility] Last Admin: 10/20/16 08:09 Dose: 0.4 mg Temazepam (Restoril) 15 mg PO BEDTIME PRN PRN Reason: Sleep Last Admin: 10/20/16 22:38 Dose: 15 mg Tiotropium [place] (Spiriva Handihaler) 18 mcg INH DAILY [facility] Last Admin: 10/20/16 09:50 Dose: 1 cap Verapamil HCl (Calan Sr) 120 mg PO BID [facility] Last Admin: 10/20/16 20:38 Dose: 120 mg Discontinued Medications Acetaminophen (Tylenol) 650 mg PO Q4H PRN PRN Reason: Pain (Mild 1-3)/fever Hydrocodone Bitart/Acetaminophen ([place] 325-5 Mg) 1 tab PO Q4H PRN PRN Reason: Pain (moderate 4-6) Albuterol (Proventil Neb Soln) mg INH Q6H [facility] Albuterol/Ipratropium (Duoneb 3.0-0.5 Mg/3 Ml) 3 ml NEB ONETIME ONE Stop: 10/18/16 14:04 Last Admin: 10/18/16 14:26 Dose: 3 ml Budesonide/Formoterol Fumarate (Symbicort 160-4.5 Mcg) 0 gm INH BID [facility] Clonazepam (Klonopin) 0.5 mg PO BEDTIME [facility] Last Admin: 10/18/16 21:27 Dose: 0.5 mg Levofloxacin/Dextrose 750 mg/ (Premix) 150 mls @ 100 mls/hr IV ONETIME ONE Stop: 10/18/16 15:36 Last Admin: 10/18/16 14:32 Dose: 100 mls/hr Sodium Chloride (Normal Saline) 1,000 mls @ 65 mls/hr IV ASDIRECTED [facility] Last Admin: 10/20/16 02:00 Dose: 100 mls/hr Sodium Chloride (Normal Saline) 100 mls @ 65 mls/hr IV ASDIRECTED [facility] Last Admin: 10/18/16 15:36 Dose: 65 mls/hr Azithromycin 500 mg/ Sodium (Chloride) 250 mls @ 250 mls/hr IV ONETIME ONE Stop: 10/18/16 18:16 Last Admin: 10/18/16 19:19 Dose: 250 mls/hr Ceftriaxone Sodium 2 gm/ (Sodium Chloride) 100 mls @ 200 mls/hr IV ONETIME ONE Stop: 10/18/16 17:47 Last Admin: 10/18/16 18:31 Dose: 200 mls/hr Iopamidol (Isovue-370 (76%)) 100 ml IVPUSH ONETIME ONE Stop: 10/18/16 15:06 Last Admin: 10/18/16 15:36 Dose: 100 ml Ipratropium [place] (Atrovent 0.06% Nasal [place]) 0 ml NASBOTH BID [facility] Last Admin: 10/19/16 14:31 Dose: Not Given Methylprednisolone Sodium Succinate (Solu-Medrol) 125 mg IVPUSH ONETIME ONE Stop: 10/18/16 17:43 Last Admin: 10/18/16 18:34 Dose: 125 mg Methylprednisolone Sodium Succinate (Solu-Medrol) 60 mg IVPUSH Q8H [facility] Last Admin: 10/20/16 17:03 Dose: 60 mg Mirtazapine (Remeron) 15 mg PO BEDTIME [facility] Last Admin: 10/18/16 21:28 Dose: 15 mg Morphine Sulfate (Morphine) 2 mg IVPUSH Q4H PRN PRN Reason: Other Stop: 10/19/16 17:09 Nitroglycerin (Nitrostat) 0.3 mg SL ASDIRECTED PRN PRN Reason: Chest Pain Non-Formulary Medication (Albuterol/Ipratropium [Combivent]) 2 puff INH Q4H PRN PRN Reason: Wheezing Non-Formulary Medication (Ranitidine) 300 mg PO QAM [facility] Last Admin: 10/19/16 09:54 Dose: Not Given Prednisone (Prednisone) 60 mg PO ONETIME STA Stop: 10/18/16 14:05 Last Admin: 10/18/16 15:14 Dose: 60 mg Saccharomyces Boulardii (Florastor) 500 mg PO ONETIME ONE Stop: 10/18/16 17:20 Last Admin: 10/18/16 18:30 Dose: 500 mg - Exam General: Reports: alert, oriented, cooperative, no acute distress, other (Obese) HEENT: Reports: Pupils equal, Pupils reactive, EOMI, Mucous membr. moist/pink Neck: Reports: supple, trachea midline, no JVD Lungs: Reports: Normal Respiratory Effort, Decreased Breath Sounds Cardiovascular: Reports: Regular Rate, Regular Rhythm GI/Abdominal Exam: Normal Bowel Sounds, Soft, Non-Tender, No Organomegaly, No Distention, No Mass, Other (Obese) (Male) Exam: Scrotal Swelling, Testicular Tenderness (R), Other (Size much improved since admission) Rectal (Males) Exam: Deferred Back Exam: Reports: Normal Inspection, Decreased Range of Motion Extremities: Normal Inspection, Normal Range of Motion, Non-Tender, No Pedal Edema, Normal Capillary Refill Skin: Reports: warm, dry, intact Neurological: Reports: no new focal deficit Psy/Mental Status: Reports: alert, normal affect, normal mood *Q Meaningful Use (DIS) - VTE *Q VTE Criteria *Q: - Stroke *Q Stroke Criteria *Q: - AMI *Q AMI Criteria *Q:
[2016-10-21 08:26] VITALS: BP 120/87
[2016-10-21] MEDS ORDERED: methylPREDNISolone Sodium Succinate 40 MG/1 ML SDV IVPUSH SCH (09:00)
[2016-10-21] MEDS: ClonazePAM 0.5 MG Tab PO SCH (09:16)
[2016-10-21] MEDS: Azithromycin 250 MG Tab PO SCH (09:16)
[2016-10-21] MEDS: PARoxetine 20 MG Tab PO SCH (09:17)
[2016-10-21] MEDS: Furosemide 40 MG Tab PO SCH (09:17)
[2016-10-21] MEDS: Magnesium Oxide 400 MG Tab PO SCH (09:17)
[2016-10-21] MEDS: Verapamil 120 MG Tab.ER PO SCH (09:17)
[2016-10-21] MEDS: Saccharomyces Boulardii (Probiotic) 250 MG Cap PO SCH (09:17)
[2016-10-21] MEDS: Clopidogrel 75 MG Tab PO SCH (09:17)
[2016-10-21] MEDS: Potassium Chloride 10 MEQ Tab.ER PO SCH (09:17)
[2016-10-21] MEDS: Apixaban 5 MG Tab PO SCH (09:17)
[2016-10-21] MEDS: guaiFENesin 600 MG Tab.ER PO SCH (09:17)
[2016-10-21] MEDS: cefTRIAXone 1 GM in Sodium Chloride 0.9% 100 ML IV SCH (09:18)
[2016-10-21] MEDS: Famotidine 20 MG Tab PO SCH (09:18)
[2016-10-21] MEDS: Tamsulosin 0.4 MG Cap.ER PO SCH (09:18)
[2016-10-21] MEDS: Naproxen 500 MG Tab PO SCH (09:18)
[2016-10-21] MEDS: Ipratropium 0.06% Nasal Spray 15 ML Bottle NAS SCH (09:24)
[2016-10-21] MEDS: Tiotropium Inhaler 18 MCG Inhalation Powder Cap Kit of 5 INH SCH (09:28)
[2016-10-21] MEDS: Formoterol/Mometasone 200-5 MCG 8.8 GM Inhaler IH SCH (09:29)
== END 2016-10-21 12:11 | disposition home or self-care (01) | DRG 189 ==
LOC: JD.ED 12:32 → JD.MS 16:56 → UNDOADMIN 16:56 → JD.MS 17:37
PROVIDERS: ADMIT Internal Medicine; ATTEND Internal Medicine
DX: J96.21 Acute and chronic respiratory failure with hypoxia (principal); J18.9 Pneumonia, unspecified organism; B37.1 Pulmonary candidiasis; N17.9 Acute kidney failure, unspecified; J44.9 Chronic obstructive pulmonary disease, unspecified; I48.0 Paroxysmal atrial fibrillation; Z79.01 Long term (current) use of anticoagulants; N45.3 Epididymo-orchitis; N43.3 Hydrocele, unspecified; R73.9 Hyperglycemia, unspecified; E86.0 Dehydration; I25.10 Atherosclerotic heart disease of native coronary artery without angina pectoris; I10 Essential (primary) hypertension; I50.9 Heart failure, unspecified; Z95.5 Presence of coronary angioplasty implant and graft; I25.2 Old myocardial infarction; J39.8 Other specified diseases of upper respiratory tract; G47.33 Obstructive sleep apnea (adult) (pediatric); K21.9 Gastro-esophageal reflux disease without esophagitis; N40.0 Benign prostatic hyperplasia without lower urinary tract symptoms; R51 Headache; F32.9 Major depressive disorder, single episode, unspecified; F41.9 Anxiety disorder, unspecified; E66.9 Obesity, unspecified; Z68.30 Body mass index [BMI] 30.0-30.9, adult; R79.1 Abnormal coagulation profile; Z96.643 Presence of artificial hip joint, bilateral; Z79.899 Other long term (current) drug therapy; Z87.891 Personal history of nicotine dependence; Z88.6 Allergy status to analgesic agent; Z88.8 Allergy status to other drugs, medicaments and biological substances
CPT/HCPCS: 36415; 36600; 71020; 71020-26; 71275; 71275-26; 76870; 76870-26; 80048; 80053; 81001; 82553; 82803; 83036; 83605; 83735; 83880; 84484; 85025; 85379; 85610; 85730; 86140; 86738; 87070; 87205; 87491; 87591; 87899; 93005; 93306; 93975; 94640; 94640-76; 94664; 94762; 96361; 96365; 96366; 97162-GP; 97165-GO; 99285; 99285-25; A9270; A9270-GY; J0456; J0696; J1170; J1450; J1956; J2405; J2920; J2930; J3490; J7030; J7040; J7050; Q9967

== ENCOUNTER 2016-11-01 08:34 | Emergency (ER) | payer OTHER ==
--- NOTE | 2016-11-01 08:42 | EDM.PDOC ---
ED HPI GENERAL MEDICAL PROBLEM - General Chief Complaint: Genitourinary Problem Stated Complaint: SWOLLEN TESTICLE,NAUSEA,SOB Time Seen by Provider: 11/01/16 08:41 - History of Present Illness INITIAL COMMENTS - FREE TEXT/NARRATIVE: 66-year-old male presents emergency room with abdominal and groin pain. Patient has nearly 2 and half week history of continued right sided abdominal discomfort and groin pain. He thinks he was told he had a torsed testicle on the right side. He was seen at another emergency room where he had imaging done. The patient is scheduled to see urology in [place] towards the end of November. Patient is quite upset and frustrated with the continued pain he is not taking anything for the pain at home. The patient has some associated nausea he has intermittent fevers and generally just feels poor. The patient cannot correlate any type of specific activities that make the pain worse and he has difficulty finding positions that make it more comfortable. He has not had any associated chest pain or chest pressure with this his breathing problems have not been worsened. Patient has significant past medical history of congestive heart failure hypertension hyperlipidemia COPD sleep apnea he uses nighttime oxygen and CPAP. Right Perineal Area Pain Score (Numeric/FACES): 10 - Related Data Allergies Allergy/AdvReac Type Severity Reaction Status Date / Time acetaminophen [From Tylenol] Allergy Airway Verified 11/01/16 08:57 Tightness aspirin Allergy Airway Verified 11/01/16 08:57 Tightness diltiazem Allergy Cannot Verified 11/01/16 08:57 Remember meperidine HCl [From Demerol] Allergy Airway Verified 11/01/16 08:57 Tightness morphine Allergy Itching Verified 11/01/16 08:57 sumatriptan [From Imitrex] Allergy Cannot Verified 11/01/16 08:57 Remember sumatriptan succinate Allergy Cannot Verified 11/01/16 08:57 [From Imitrex] Remember haloperidol [From Haldol] AdvReac Change Verified 11/01/16 08:57 Mental Status haloperidol lactate AdvReac Change Verified 11/01/16 08:57 [From Haldol] Mental Status ketorolac tromethamine AdvReac Change Verified 11/01/16 08:57 [From Toradol] Mental Status antihistamines Allergy Airway Uncoded 11/01/16 08:57 Tightness Home Meds: Home Meds Clopidogrel [Plavix] 75 mg PO DAILY 04/12/14 [History] Furosemide [Lasix] 40 mg PO DAILY 04/12/14 [History] PARoxetine HCl [Paxil] 20 mg PO DAILY 04/12/14 [History] Potassium Chloride 10 meq PO BID 04/12/14 [History] Tamsulosin HCl [Flomax] 0.4 mg PO BID 04/12/14 [History] Tiotropium [Spiriva HandiHaler] 1 cap INH DAILY 04/12/14 [History] ClonazePAM [KlonoPIN] 0.5 mg PO QAM 02/03/15 [History] Simvastatin [Zocor] 20 mg PO BEDTIME 02/03/15 [History] Mirtazapine 30 mg PO BEDTIME 05/09/15 [History] Apixaban [Eliquis] 5 mg PO BID 01/23/16 [History] Budesonide/Formoterol [Symbicort 160-4.5 MCG] 2 puff INH BID 01/23/16 [History] Magnesium Oxide 420 mg PO DAILY 01/23/16 [History] Verapamil [Calan SR] 120 mg PO BID 01/23/16 [History] Albuterol Sulfate 1 vial INH Q6H 10/18/16 [History] Albuterol Sulfate [Proair Respiclick] 2 puff INH Q4H PRN 10/18/16 [History] ClonazePAM [KlonoPIN] 1 mg PO BEDTIME 10/18/16 [History] Ipratropium [place] 1 spray NASBOTH BID 10/18/16 [History] Ranitidine [Zantac] 300 mg PO QAM 10/18/16 [History] Hydrocodone/Acetaminophen [[place] 5-325] 1 tab PO Q4H PRN #20 tablet 11/01/16 [Rx ] Past Medical History HEENT History: Reports: Cataract Other HEENT History: wears eyeglasses and upper dentures Cardiovascular History: Reports: Afib (paroxysmal), CAD, Heart Failure, High Cholesterol, Hypertension, NM Other Cardiovascular History: on coumadin, stents in 1999, 5 NM, and Afib Respiratory History: Reports: COPD, Intubation, Previous, Sleep Apnea (nightly BiPAP + O2) Gastrointestinal History: Reports: GERD, PUD Genitourinary History: Reports: BPH Musculoskeletal History: Reports: None Neurological History: Reports: Headaches, Chronic Psychiatric History: Reports: Anxiety, Depression Endocrine/Metabolic History: Reports: Obesity/BMI 30+ Other Endocrine/Metabolic History: boardline diabetic - Past Surgical History HEENT Surgical History: Reports: Cataract Surgery Cardiovascular Surgical History: Reports: Coronary Artery Stent (x 3) GI Surgical History: Reports: Appendectomy Musculoskeletal Surgical History: Reports: Hip Replacement (bilateral) Social & Family History - Family History Family Medical History: Noncontributory Oncologic: Reports: Leukemia Other Oncologic Family History: Brother - Tobacco Use Smoking Status *Q: Former Smoker Years of Tobacco use: 20 Packs/Tins Daily: 0.5 Used Tobacco, but Quit: Yes Month Tobacco Last Used: Quit 2013 Second Hand Smoke Exposure: No - Caffeine Use Caffeine Use: Reports: Soda - Alcohol Use Days Per Week of Alcohol Use: 0 - Recreational Drug Use Recreational Drug Use: No - Living Situation & Occupation Living situation: Reports: , with Spouse Occupation: Disabled ED ROS GENERAL - Review of Systems Review Of Systems: See Below Constitutional: Reports: Fever, Chills, Fatigue. Denies: Malaise, Weakness HEENT: Reports: No Symptoms Respiratory: Reports: Shortness of Breath (This is chronic). Denies: Sputum, Hemoptysis Cardiovascular: Reports: Blood Pressure Problem, Dyspnea on Exertion, Edema. Denies: Chest Pain, Claudication GI/Abdominal: Reports: Abdominal Pain, Diarrhea, Nausea : Reports: No Symptoms Musculoskeletal: Reports: No Symptoms Skin: Reports: No Symptoms Neurological: Reports: No Symptoms Psychiatric: Reports: Other (Patient is quite upset with this continued pain.) Hematologic/Lymphatic: Reports: No Symptoms ED EXAM, GENERAL - Physical Exam Exam: See Below Exam Limited By: No Limitations General Appearance: Alert, Moderate Distress (From the pain) Neck: Normal Inspection, Supple, Non-Tender, Full Range of Motion. No: Lymphadenopathy (L), Lymphadenopathy (R) Respiratory/Chest: No Respiratory Distress, Lungs Clear, Normal Breath Sounds, No Accessory Muscle Use, Chest Non-Tender Cardiovascular: Regular Rate, Rhythm, No Murmur, Other (+1 lower extremity edema below the midpoint on the lower leg) GI/Abdominal: Distended, Abnormal Bowel Sounds, Other (Patient has bowel sounds that perhaps hypoactive he has some distention mostly noted on the right side and he has significant but fairly vague right-sided discomfort no specific rebound or guarding) (Male) Exam: Scrotal Swelling, Testicular Tenderness (R), Other (Right testicle is larger than the left appears to have fluid in the scrotum cannot exclude a hernia however he has no discomfort over the femoral canal he has generalized scrotal tenderness) Back Exam: Normal Inspection Extremities: Normal Inspection, Pedal Edema Neurological: Alert, Oriented EKG INTERPRETATION EKG Date: 11/01/16 Rhythm: A-Fib [place]: Normal P-Wave: Absent QRS: Wide ST-T: Other (Nonspecific nondiagnostic changes) QT: Normal Comparison: No Change (No change 10-18-16) EKG Interpretation Comments: Abnormal Course - Vital Signs Last Recorded V/S: Last Vital Signs Temp 35.9 C 11/01/16 08:38 Pulse 102 H 11/01/16 08:38 Resp 16 11/01/16 08:38 BP 114/80 11/01/16 08:38 Pulse Ox 95 11/01/16 08:38 - Orders/Labs/Meds Orders: Active Orders 24 hr Category Date Time Status EKG Documentation Completion [RC] STAT Care 11/01/16 10:10 Active Lactated Ringers [Ringers, Lactated] 1,000 ml Med 11/01/16 09:00 Active IV ASDIRECTED Medication Orders Lactated Ringer's (Ringers, Lactated) 1,000 mls @ 125 mls/hr IV ASDIRECTED SANTOS Last Admin: 11/01/16 09:11 Dose: 125 mls/hr Labs: Laboratory Tests 11/01/16 11/01/16 11/01/16 Range/Units 09:00 09:00 09:00 WBC 12.05 H (4.23-9.07) K/mm3 RBC 4.52 L (4.63-6.08) M/mm3 Hgb 14.4 (13.7-17.5) gm/L Hct 43.9 (40.1-51.0) % MCV 97.1 H (79.0-92.2) fl MCH 31.9 (25.7-32.2) pg MCHC 32.8 (32.2-35.5) g/dl RDW Std Deviation 50.4 H (35.1-43.9) fL Plt Count 194 (163-337) K/mm3 MPV 9.4 (9.4-12.3) fl Neutrophils % (Manual) 81 H (40-60) % Band Neutrophils % 1 (0-10) % Lymphocytes % (Manual) 12 L (20-40) % Atypical Lymphs % 0 % Monocytes % (Manual) 5 (2-10) % Eosinophils % (Manual) 1 (0.8-7.0) % Basophils % (Manual) 0 L (0.2-1.2) Platelet Estimate Adequate RBC Morph Comment Normal PT 10.0 (8.0-13.0) SECONDS INR 0.92 APTT 26 (22-36) SECONDS Sodium 138 (136-145) mEq/L Potassium 3.5 (3.5-5.1) mEq/L Chloride 102 (98-107) mEq/L Carbon Dioxide 28 (21-32) mEq/L Anion Gap 11.5 (5-15) BUN 24 H (7-18) mg/dL Creatinine 1.3 (0.7-1.3) mg/dL Est Cr Clr Drug Dosing 49.08 mL/min Estimated GFR (MDRD) 55 (>60) mL/min BUN/Creatinine Ratio 18.5 H (14-18) Glucose 308 H (80-115) mg/dL Calcium 8.7 (8.5-10.1) mg/dL Total Bilirubin 0.5 (0.2-1.0) mg/dL AST 16 (15-37) U/L ALT 59 (16-63) U/L Alkaline Phosphatase 146 H (46-116) U/L Troponin I (0.00-0.056) ng/mL Total Protein 6.4 (6.4-8.2) g/dl Albumin 3.1 L (3.4-5.0) g/dl Globulin 3.3 gm/dL Albumin/Globulin Ratio 0.9 L (1-2) Lipase 152 (73-393) U/L Urine Color (Yellow) Urine Appearance (Clear) Urine pH (5.0-8.0) Ur Specific [place] (1.005-1.030) Urine Protein (Negative) Urine Glucose (UA) (Negative) Urine Ketones (Negative) Urine Occult Blood (Negative) Urine Nitrite (Negative) Urine Bilirubin (Negative) Urine Urobilinogen (0.2-1.0) Ur Leukocyte Esterase (Negative) Urine RBC (0-5) /hpf Urine WBC (0-5) /hpf Ur Epithelial Cells (0-5) /hpf Urine Bacteria (FEW) /hpf Urine Mucus (FEW) /hpf 11/01/16 11/01/16 Range/Units 09:00 11:08 WBC (4.23-9.07) K/mm3 RBC (4.63-6.08) M/mm3 Hgb (13.7-17.5) gm/L Hct (40.1-51.0) % MCV (79.0-92.2) fl MCH (25.7-32.2) pg MCHC (32.2-35.5) g/dl RDW Std Deviation (35.1-43.9) fL Plt Count (163-337) K/mm3 MPV (9.4-12.3) fl Neutrophils % (Manual) (40-60) % Band Neutrophils % (0-10) % Lymphocytes % (Manual) (20-40) % Atypical Lymphs % % Monocytes % (Manual) (2-10) % Eosinophils % (Manual) (0.8-7.0) % Basophils % (Manual) (0.2-1.2) Platelet Estimate RBC Morph Comment PT (8.0-13.0) SECONDS INR APTT (22-36) SECONDS Sodium (136-145) mEq/L Potassium (3.5-5.1) mEq/L Chloride (98-107) mEq/L Carbon Dioxide (21-32) mEq/L Anion Gap (5-15) BUN (7-18) mg/dL Creatinine (0.7-1.3) mg/dL Est Cr Clr Drug Dosing mL/min Estimated GFR (MDRD) (>60) mL/min BUN/Creatinine Ratio (14-18) Glucose (80-115) mg/dL Calcium (8.5-10.1) mg/dL Total Bilirubin (0.2-1.0) mg/dL AST (15-37) U/L ALT (16-63) U/L Alkaline Phosphatase (46-116) U/L Troponin I < 0.017 (0.00-0.056) ng/mL Total Protein (6.4-8.2) g/dl Albumin (3.4-5.0) g/dl Globulin gm/dL Albumin/Globulin Ratio (1-2) Lipase (73-393) U/L Urine Color Light yellow (Yellow) Urine Appearance Slt cloudy H (Clear) Urine pH 6.0 (5.0-8.0) Ur Specific [place] 1.015 (1.005-1.030) Urine Protein Negative (Negative) Urine Glucose (UA) Negative (Negative) Urine Ketones Negative (Negative) Urine Occult Blood Trace-intact H (Negative) Urine Nitrite Negative (Negative) Urine Bilirubin Negative (Negative) Urine Urobilinogen 0.2 (0.2-1.0) Ur Leukocyte Esterase Negative (Negative) Urine RBC Not seen (0-5) /hpf Urine WBC 0-5 (0-5) /hpf Ur Epithelial Cells 0-5 (0-5) /hpf Urine Bacteria Not seen (FEW) /hpf Urine Mucus Not seen (FEW) /hpf Meds: Medications Generic Name Dose Route Start Last Admin Trade Name Freq PRN Reason Stop Dose Admin Lactated Ringer's 1,000 mls @ 125 mls/hr 11/01/16 09:00 11/01/16 09:11 Ringers, Lactated IV 125 mls/hr ASDIRECTED SANTOS Administration Discontinued Medications Generic Name Dose Route Start Last Admin Trade Name Freq PRN Reason Stop Dose Admin Diatrizoate Meglum/Diatrizoate Sod 120 ml 11/01/16 10:58 11/01/16 10:59 Gastrografin 37% PO 11/01/16 10:59 90 ml ONETIME ONE Administration Hydromorphone HCl 1 mg 11/01/16 08:58 11/01/16 09:12 Dilaudid IVPUSH 11/01/16 08:59 1 mg ONETIME ONE Administration Hydromorphone HCl 0.5 mg 11/01/16 11:12 11/01/16 11:19 Dilaudid IVPUSH 11/01/16 11:13 0.5 mg ONETIME ONE Administration Iopamidol 100 ml 11/01/16 10:38 11/01/16 10:57 Isovue-300 (61%) IVPUSH 11/01/16 10:39 100 ml ONETIME ONE Administration Ondansetron HCl 4 mg 11/01/16 08:58 11/01/16 09:12 Zofran IVPUSH 11/01/16 08:59 4 mg ONETIME ONE Administration - Re-Assessments/Exams Free Text/Narrative Re-Assessment/Exam: 11/01/16 10:14 Some records reviewed from his visit at the emergency room on the this month testicular ultrasound is fairly nonspecific no evidence of a torsion unenhanced abdomen pelvis CT showed no acute changes awaiting labs and provider note. At this point labs ordered with his abdominal exam were can go ahead and check a abdominal pelvic CT with IV and oral contrast 11/01/16 11:[address] unrevealing. Patient is doing much better with pain control he received a milligram of Dilaudid shortly after arrival this was followed up with another half milligram after CT rechecked his scrotal exam and his basically unchanged from before I will obtain a scrotal ultrasound at this point. Discussed situation with the patient and he says yesterday his symptoms got worse after lifting 2 5 gallon gas cans and lifting the back up of his 4 epps. This caused excruciating pain he had to lay down after this. 11/01/16 13:59 Testicular and scrotal ultrasound shows persistent epididymitis and the right- sided hydrocele looking a little more complicated than prior studies is a possible right-sided varicocele seen today not seen on prior studies. Patient has had significant pain relief with Dilaudid I will not discharge him on oral Dilaudid to try him on hydrocodone. At this point I cannot exclude the possibility of a hernia. Departure - Departure Time of Disposition: 14:06 Disposition: Home, Self-Care 01 Clinical Impression: Scrotal pain, Epididymitis, Hydrocele - Discharge Information Prescriptions: Hydrocodone/Acetaminophen [[place] 5-325] 1 tab PO Q4H PRN #20 tablet PRN Reason: Pain Forms: ED Department Discharge Additional Instructions: Return to the emergency room with any questions problems worsening symptoms. Get plenty of rest. No heavy lifting no lifting greater then 10 pounds. Try and elevate your scrotum and use ice as tolerated. You have been started on hydrocodone. This is a pain medication take one every 4 hours as needed for pain. Use only if needed for pain. Allow 12 hours after taking this medication before driving or operating potentially hazardous equipment. Follow-up with your provider at the [place] [facility] early this next week for recheck. Recheck for a possible hernia and to see if the testicular condition is improving. - My Orders Last 24 Hours: My Active Orders 11/01/16 09:00 Lactated Ringers [Ringers, Lactated] 1,000 ml IV ASDIRECTED 11/01/16 10:10 EKG Documentation Completion [RC] STAT - Assessment/Plan Last 24 Hours: My Active Orders 11/01/16 09:00 Lactated Ringers [Ringers, Lactated] 1,000 ml IV ASDIRECTED 11/01/16 10:10 EKG Documentation Completion [RC] STAT
[2016-11-01] MEDS ORDERED: HYDROmorphone 1 MG/ML Syringe IVPUSH ONE (08:58)
[2016-11-01] MEDS ORDERED: Ondansetron 4 MG/2 ML SDV IVPUSH ONE (08:58)
[2016-11-01] MEDS ORDERED: Lactated Ringers 1,000 ML IV SCH (09:00)
[2016-11-01] MEDS ORDERED: Iopamidol 612 MG/ML 100 ML Bottle IVPUSH ONE (10:38)
[2016-11-01] MEDS ORDERED: Diatrizoate Meglumine/Diatrizoate Sodium 37% 120 ML Bottle PO ONE (10:58)
[2016-11-01] MEDS ORDERED: HYDROmorphone 0.5 MG/0.5 ML Syringe IVPUSH ONE (11:12)
--- NOTE | 2016-11-01 11:27 | CT ---
CT abdomen and pelvis Technique: Multiple axial sections were obtained from above the dome of the diaphragm inferiorly through the pubic symphysis. Intravenous contrast and oral contrast is noted. Comparison: No previous abdominal and pelvic CT exam. Findings: Mild increased density is noted within both lung bases most likely due to areas of scarring. Emphysematous change is seen. Small amount of extrapleural fat seen within the posterior left lung base as an incidental note. Contrast noted within the distal esophagus compatible with reflux. Liver shows no focal parenchymal abnormality. Spleen appears within normal limits. Adrenal glands show no nodule. Kidneys show symmetric contrast enhancement. Cortical and parapelvic cysts are seen within both kidneys. 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 Atherosclerotic change continues into the iliac vessels. Pancreas appears within normal limits. No retroperitoneal adenopathy or mesenteric abnormalities are seen. No pelvic mass or adenopathy is seen. There is artifact within the pelvis due to bilateral hip prosthesis. Diverticuli are seen within the sigmoid colon without inflammatory change to indicate diverticulitis. Delayed images shows contrast within the distal ureters and bladder. Bone window settings were reviewed which appear within normal limits for the patient's age. Impression: 1. Numerous findings as described above. Nothing acute is appreciated. Diagnostic code #2
--- NOTE | 2016-11-01 13:33 | US ---
Testicular ultrasound: Multiple real-time images were obtained. Comparison: Previous ultrasound exam of 10/18/16. Both testicles have a homogeneous ultrasound appearance. Both arterial and venous blood flow are seen within the testicles. Bilateral hydroceles are seen which is slightly complicated on the right side. Slightly prominent vasculature noted within the right inguinal region possibly due to right sided varicocele. Right epididymis is enlarged likely representing epididymitis. Small capsular cyst is noted within the right testicle measuring 3 mm which is normal variant. Several small cysts are noted within the right epididymis. Measurements: Right testicle: 3.9 x 2.6 x 4.3 cm Left testicle: 5.2 x 2.0 x 4.5 cm Impression: 1. Findings felt compatible with persistent epididymitis on the right side which is noted on previous exam. No findings of orchitis are seen on current study. 2. Complicated right-sided hydrocele. Hydrocele seen on previous study but appears more complicated on current exam likely relating to the inflammatory change within the epididymis. 3. Possible right-sided varicocele is seen on current exam within the right groin which is not identified on prior study which is likely technical. 4. Blood flow is seen within both testicles ruling out torsion. 5. Small capsular cyst within the right testicle which is incidental. Several small epididymal cyst on the right side which are also incidental. Diagnostic code #3
[2016-11-01 14:29] VITALS: BP 122/67
== END 2016-11-01 14:23 | disposition home or self-care (01) ==
LOC: JD.ED 08:34
DX: N45.1 Epididymitis (principal); N43.3 Hydrocele, unspecified; I11.0 Hypertensive heart disease with heart failure; I50.9 Heart failure, unspecified; J44.9 Chronic obstructive pulmonary disease, unspecified; I48.91 Unspecified atrial fibrillation; I25.10 Atherosclerotic heart disease of native coronary artery without angina pectoris; E78.00 Pure hypercholesterolemia, unspecified; K21.9 Gastro-esophageal reflux disease without esophagitis; F41.9 Anxiety disorder, unspecified; F32.9 Major depressive disorder, single episode, unspecified; Z98.49 Cataract extraction status, unspecified eye; Z96.649 Presence of unspecified artificial hip joint; Z88.6 Allergy status to analgesic agent; Z88.1 Allergy status to other antibiotic agents; Z88.5 Allergy status to narcotic agent; Z79.899 Other long term (current) drug therapy; Z87.891 Personal history of nicotine dependence
CPT/HCPCS: 36415; 74177; 76870; 80053; 81001; 83690; 84484; 85025; 85610; 85730; 93005; 93975; 96361; 96374; 96375; 96376; 99284; J1170; J2405; J7120; Q9963; Q9967

== ENCOUNTER 2016-12-01 14:45 | Emergency (ER) | payer OTHER ==
[2016-12-01] MEDS ORDERED: HYDROmorphone 1 MG/ML Syringe IVPUSH ONE (15:32)
[2016-12-01] MEDS ORDERED: Sodium Chloride 0.9% 10 ML Syringe FLUSH PRN (15:32)
[2016-12-01] MEDS ORDERED: Amiodarone In Dextrose,Iso-Osm 150 MG in Premix Bag 1 BAG IV ONE ×2 (16:02)
--- NOTE | 2016-12-01 16:25 | EDM.PDOC ---
ED HPI GENERAL MEDICAL PROBLEM - General Chief Complaint: Genitourinary Problem Stated Complaint: SOB/SWOLLEN R TESTICLE Time Seen by Provider: 12/01/16 14:51 Source of Information: Reports: Patient, RN Notes Reviewed - History of Present Illness INITIAL COMMENTS - FREE TEXT/NARRATIVE: 66-year-old male comes in with right testicular pain. He states he had onset of this discomfort about 6 weeks ago. He has been on numerous courses of antibiotics. He was seen by a urologist at the [facility] in [place] one week ago, started on a new antibiotic. He states the pain has not gotten better and in fact he thinks it's worse today. HEENT is not bad when at rest but with any type of motion he states the pain is "severe". For him to sleep at night. He's been taking hydrocodone. He states that makes him itch and has not been effectively relieving the discomfort. He states there has been swelling of the right scrotum. No voiding problems. No fever chills nausea or vomiting. No abdominal discomfort. Right Gums Pain Score (Numeric/FACES): 10 - Related Data Allergies Allergy/AdvReac Type Severity Reaction Status Date / Time acetaminophen [From Tylenol] Allergy Airway Verified 11/01/16 08:57 Tightness aspirin Allergy Airway Verified 11/01/16 08:57 Tightness diltiazem Allergy Cannot Verified 11/01/16 08:57 Remember hydromorphone [From Dilaudid] Allergy Cardiac Verified 12/01/16 17:32 Arrest meperidine HCl [From Demerol] Allergy Airway Verified 11/01/16 08:57 Tightness morphine Allergy Itching Verified 11/01/16 08:57 sumatriptan [From Imitrex] Allergy Cannot Verified 11/01/16 08:57 Remember sumatriptan succinate Allergy Cannot Verified 11/01/16 08:57 [From Imitrex] Remember haloperidol [From Haldol] AdvReac Change Verified 11/01/16 08:57 Mental Status haloperidol lactate AdvReac Change Verified 11/01/16 08:57 [From Haldol] Mental Status ketorolac tromethamine AdvReac Change Verified 11/01/16 08:57 [From Toradol] Mental Status antihistamines Allergy Airway Uncoded 11/01/16 08:57 Tightness Home Meds: Home Meds Clopidogrel [Plavix] 75 mg PO DAILY 04/12/14 [History] Furosemide [Lasix] 40 mg PO DAILY 04/12/14 [History] PARoxetine HCl [Paxil] 20 mg PO DAILY 04/12/14 [History] Potassium Chloride 10 meq PO BID 04/12/14 [History] Tamsulosin HCl [Flomax] 0.4 mg PO BID 04/12/14 [History] Tiotropium [Spiriva HandiHaler] 1 cap INH DAILY 04/12/14 [History] ClonazePAM [KlonoPIN] 0.5 mg PO QAM 02/03/15 [History] Simvastatin [Zocor] 20 mg PO BEDTIME 02/03/15 [History] Apixaban [Eliquis] 5 mg PO BID 01/23/16 [History] Budesonide/Formoterol [Symbicort 160-4.5 MCG] 2 puff INH BID 01/23/16 [History] Magnesium Oxide 420 mg PO DAILY 01/23/16 [History] Verapamil [Calan SR] 120 mg PO BID 01/23/16 [History] Albuterol Sulfate 1 vial INH Q6H 10/18/16 [History] Albuterol Sulfate [Proair Respiclick] 2 puff INH Q4H PRN 10/18/16 [History] ClonazePAM [KlonoPIN] 1 mg PO BEDTIME 10/18/16 [History] Ipratropium [place] 1 spray NASBOTH BID 10/18/16 [History] Ranitidine [Zantac] 300 mg PO QAM 10/18/16 [History] Hydrocodone/Acetaminophen [[place] 5-325] 1 tab PO Q4H PRN #20 tablet 11/01/16 [Rx ] Past Medical History HEENT History: Reports: Cataract Other HEENT History: wears eyeglasses and upper dentures Cardiovascular History: Reports: Afib, CAD, Heart Failure, High Cholesterol, Hypertension, ID Other Cardiovascular History: on coumadin, stents in 1999, 5 ID, and Afib Respiratory History: Reports: COPD, Intubation, Previous, Sleep Apnea Gastrointestinal History: Reports: GERD, PUD Genitourinary History: Reports: BPH Musculoskeletal History: Reports: None Neurological History: Reports: Headaches, Chronic Psychiatric History: Reports: Anxiety, Depression Endocrine/Metabolic History: Reports: Obesity/BMI 30+ Other Endocrine/Metabolic History: boardline diabetic - Past Surgical History HEENT Surgical History: Reports: Cataract Surgery Cardiovascular Surgical History: Reports: Coronary Artery Stent GI Surgical History: Reports: Appendectomy Musculoskeletal Surgical History: Reports: Hip Replacement Social & Family History - Family History Family Medical History: Noncontributory Oncologic: Reports: Leukemia Other Oncologic Family History: Brother - Tobacco Use Smoking Status *Q: Never Smoker Years of Tobacco use: 20 Packs/Tins Daily: 0.5 Used Tobacco, but Quit: Yes Month Tobacco Last Used: 24 Second Hand Smoke Exposure: No - Caffeine Use Caffeine Use: Reports: None - Alcohol Use Days Per Week of Alcohol Use: 0 - Recreational Drug Use Recreational Drug Use: No - Living Situation & Occupation Living situation: Reports: , with Spouse Occupation: Disabled ED ROS GENERAL - Review of Systems Review Of Systems: See Below Constitutional: Denies: Fever, Chills, Diaphoresis HEENT: Reports: No Symptoms Respiratory: Reports: Shortness of Breath Cardiovascular: Denies: Chest Pain (Chronically) GI/Abdominal: Denies: Abdominal Pain, Nausea, Vomiting : Reports: Pain (Right scrotal pain, fairly steady for the last 6 weeks) Musculoskeletal: Denies: Leg Pain Skin: Reports: No Symptoms Neurological: Reports: No Symptoms ED EXAM, RENAL/ - Physical Exam Exam: See Below General Appearance: Alert, Moderate Distress Eye Exam: Bilateral Eye: PERRL Throat/Mouth: Normal Inspection, Normal Oropharynx Head: No: Facial Swelling Neck: Supple, Other (No JVD) Respiratory/Chest: Respiratory Distress. No: Rales (Moderate tachypnea), Rhonchi, Wheezing GI/Abdominal: Soft, Non-Tender (Male) Exam: Scrotum Tenderness (R). No: Scrotal Swelling, Testicular Mass ( Moderate diffuse tenderness of the scrotum) Extremities: Normal Inspection. No: Pedal Edema, Leg Pain Neurological: Alert, Oriented Skin Exam: Warm, Dry, Normal Color EKG INTERPRETATION EKG Date: 12/01/16 Rhythm: A-Fib [place]: Normal QRS: Normal ST-T: Normal Course - Vital Signs Last Recorded V/S: Last Vital Signs Temp 97.4 F 12/01/16 14:58 Pulse 76 12/01/16 14:58 Resp 32 H 12/01/16 14:58 BP 125/82 12/01/16 14:58 Pulse Ox 92 L 12/01/16 14:58 - Orders/Labs/Meds Orders: Active Orders 24 hr Category Date Time Status Peripheral IV Care [RC] . DIRECTED Care 12/01/16 15:34 Active MAGNESIUM [CHEM] Stat Lab 12/01/16 18:46 Received TROPONIN I [CHEM] Stat Lab 12/01/16 18:46 Received UA W/MICROSCOPIC [URIN] Stat Lab 12/01/16 15:34 Uncollected Amiodarone In Dextrose,Iso-Osm [Nexterone in Dextrose Med 12/01/16 16:15 Active 360 MG/200 ML] 360 mg in 200 ml IV ASDIRECTED Magnesium Sulfate/Water [Magnesium Sulfate 2 GM in Med 12/01/16 19:06 Active Water 50 ML] 2 gm Premix Bag 1 bag IV ONETIME Sodium Chloride 0.9% [Saline Flush] Med 12/01/16 15:32 Active 10 ml FLUSH ASDIRECTED PRN Peripheral IV Insertion Adult [OM.PC] Stat Oth 12/01/16 15:32 Ordered Medication Orders Amiodarone HCl/Dextrose (Nexterone In Dextrose 360 Mg/200 Ml) 360 mg in 200 mls @ 33.333 mls/hr IV ASDIRECTED SANTOS PRN Reason: Protocol Last Admin: 12/01/16 16:23 Dose: 33.333 mls/hr Magnesium Sulfate 2 gm/ Premix 50 mls @ 25 mls/hr IV ONETIME ONE Stop: 12/01/16 21:05 Sodium Chloride (Saline Flush) 10 ml FLUSH ASDIRECTED PRN PRN Reason: Keep Vein Open Last Admin: 12/01/16 15:52 Dose: 10 ml Labs: Laboratory Tests 12/01/16 12/01/16 12/01/16 Range/Units 13:50 13:50 13:50 WBC 9.46 H (4.23-9.07) K/mm3 RBC 4.40 L (4.63-6.08) M/mm3 Hgb 14.2 (13.7-17.5) gm/L Hct 42.9 (40.1-51.0) % MCV 97.5 H (79.0-92.2) fl MCH 32.3 H (25.7-32.2) pg MCHC 33.1 (32.2-35.5) g/dl RDW Std Deviation 52.1 H (35.1-43.9) fL Plt Count 178 (163-337) K/mm3 MPV 9.3 L (9.4-12.3) fl Neut % (Auto) 76.1 H (34.0-67.9) % Lymph % (Auto) 15.4 L (21.8-53.1) % [place] % (Auto) 7.2 (5.3-12.2) % Eos % (Auto) 0.8 (0.8-7.0) Baso % (Auto) 0.2 (0.1-1.2) % Neut # (Auto) 7.19 H (1.78-5.38) K/mm3 Lymph # (Auto) 1.46 (1.32-3.57) K/mm3 [place] # (Auto) 0.68 (0.30-0.82) K/mm3 Eos # (Auto) 0.08 (0.04-0.54) K/mm3 Baso # (Auto) 0.02 (0.01-0.08) K/mm3 Sodium 142 (136-145) mEq/L Potassium 3.3 L (3.5-5.1) mEq/L Chloride 102 (98-107) mEq/L Carbon Dioxide 31 (21-32) mEq/L Anion Gap 12.3 (5-15) BUN 16 (7-18) mg/dL Creatinine 1.2 (0.7-1.3) mg/dL Est Cr Clr Drug Dosing 53.17 mL/min Estimated GFR (MDRD) > 60 (>60) mL/min BUN/Creatinine Ratio 13.3 L (14-18) Glucose 109 (80-115) mg/dL Calcium 8.6 (8.5-10.1) mg/dL Total Bilirubin 0.6 (0.2-1.0) mg/dL AST 14 L (15-37) U/L ALT 20 (16-63) U/L Alkaline Phosphatase 119 H (46-116) U/L C-Reactive Protein 1.5 H* (<1.0) mg/dL Total Protein 6.9 (6.4-8.2) g/dl Albumin 3.4 (3.4-5.0) g/dl Globulin 3.5 gm/dL Albumin/Globulin Ratio 1.0 (1-2) Meds: Medications Generic Name Dose Route Start Last Admin Trade Name Freq PRN Reason Stop Dose Admin Amiodarone HCl/Dextrose 360 mg in 200 mls @ 33.333 mls/hr 12/01/16 16:15 16:23 Nexterone In Dextrose 360 Mg/200 Ml IV 33.333 mls/hr ASDIRECTED SANTOS Administration Protocol Magnesium Sulfate 2 gm/ Premix 50 mls @ 25 mls/hr 12/01/16 19:06 IV 12/01/16 21:05 ONETIME ONE Sodium Chloride 10 ml 12/01/16 15:32 12/01/16 15:52 Saline Flush FLUSH 10 ml ASDIRECTED PRN Administration Keep Vein Open Discontinued Medications Generic Name Dose Route Start Last Admin Trade Name Freq PRN Reason Stop Dose Admin Hydromorphone HCl 1 mg 12/01/16 15:32 12/01/16 15:52 Dilaudid IVPUSH 12/01/16 15:33 1 mg ONETIME ONE Administration Amiodarone HCl/Dextrose 150 mg 100 mls @ 400 mls/hr 12/01/16 16:02 12/01/16 16:04 / Premix IV 12/01/16 16:16 400 mls/hr NOW ONE Administration Protocol Lorazepam 0.5 mg 12/01/16 17:12 12/01/16 17:30 Ativan IVPUSH 12/01/16 17:13 0.5 mg ONETIME ONE Administration - Re-Assessments/Exams Free Text/Narrative Re-Assessment/Exam: 12/01/16 16:00. Patient became unresponsive for 2 brief episodes very shortly after receiving Dilaudid 0.5 mg IV. Monitor shows what appears to be some V. tach. Each episode of unresponsiveness was very brief about 5-10 seconds. We did give amiodarone 150 mg IV over 10 minutes and then did start an amiodarone drip at 1 milligram per minute. With that his rhythm has been good, atrial fibrillation with rate running primarily in the 70s and 80s. He has continued to have no chest discomfort. We'll continue with ultrasound right scrotum as planned. 12/01/16 18:00 patient had another very brief several second run of what appears to be V. tach. His RN states that he did once again "pass out for just a few seconds. On my arrival to the room he is back and is atrophia, rate in the 70s. He is awake no apparent distress. Amiodarone drip was started back up again. He now relates to us that she had unexplained syncope in his yard this past afternoon in his yard a couple of hours prior to arrival to the ED. He states that he was carrying a 2 x 4 from his garage toward his house when he suddenly found himself "on the grass awakening after apparent syncope". He does have history of known coronary artery disease, has multiple stents placed about 10 years ago. He also does have long-standing history of COPD, congestive heart failure. 18:30. Discussed with Dr. Rincon our Hospitalist promotional demonstrator. Due to multiple underlying problems, Recurrent V Tach, Syncope he is requesting we transfer to a [facility]. Patient requests [facility]. Dr Moreira, Cardiology and Hospitalist promotional demonstrator accept patient in transfer. Will transfer by ground ambulance. He was started back on the amiodarone drip. Serum Magnessium pending. Troponin did come back normal.. 12/01/16 19:21 Departure - Departure Time of Disposition: 18:29 Disposition: DC/Tfer to Acute Hospital 02 Condition: Serious Clinical Impression: Epididymitis Cardiac arrhythmia Qualifiers: Arrhythmia type: ventricular tachycardia Qualified Code(s): I47.2 - Ventricular tachycardia Syncope Qualifiers: Syncope type: unspecified Qualified Code(s): R55 - Syncope and collapse - Discharge Information Referrals: Xuan Ignacio DO [Primary Care Provider] - Forms: ED Department Discharge - My Orders Last 24 Hours: My Active Orders 12/01/16 15:32 Sodium Chloride 0.9% [Saline Flush] 10 ml FLUSH ASDIRECTED PRN Peripheral IV Insertion Adult [OM.PC] Stat 12/01/16 15:34 Peripheral IV Care [RC] . DIRECTED UA W/MICROSCOPIC [URIN] Stat 12/01/16 16:15 Amiodarone In Dextrose,Iso-Osm [Nexterone in Dextrose 360 MG/200 ML] 360 mg in 200 ml IV ASDIRECTED 12/01/16 18:46 MAGNESIUM [CHEM] Stat TROPONIN I [CHEM] Stat 12/01/16 19:06 Magnesium Sulfate/Water [Magnesium Sulfate 2 GM in Water 50 ML] 2 gm Premix Bag 1 bag IV ONETIME - Assessment/Plan Last 24 Hours: My Active Orders 12/01/16 15:32 Sodium Chloride 0.9% [Saline Flush] 10 ml FLUSH ASDIRECTED PRN Peripheral IV Insertion Adult [OM.PC] Stat 12/01/16 15:34 Peripheral IV Care [RC] . DIRECTED UA W/MICROSCOPIC [URIN] Stat 12/01/16 16:15 Amiodarone In Dextrose,Iso-Osm [Nexterone in Dextrose 360 MG/200 ML] 360 mg in 200 ml IV ASDIRECTED 12/01/16 18:46 MAGNESIUM [CHEM] Stat TROPONIN I [CHEM] Stat 12/01/16 19:06 Magnesium Sulfate/Water [Magnesium Sulfate 2 GM in Water 50 ML] 2 gm Premix Bag 1 bag IV ONETIME
[2016-12-01] MEDS ORDERED: LORazepam 2 MG/ML MDV IVPUSH ONE (17:12)
--- NOTE | 2016-12-01 17:48 | US ---
Testicular ultrasound: Multiple real-time images were obtained. Comparison: Previous testicular ultrasound of . Findings: Cyst is identified within the periphery of the right testicle in a subcapsular location measuring 4 mm. This is felt to be without significant change when allowing for differences in measurement technique. Right epididymis appears heterogeneous with increased blood flow. This is identified on prior exam. On the left side 2 small epididymal cysts are seen. These are felt to be stable. Largest epididymal cyst measures 8 mm. Both testicles of homogeneous ultrasound appearance. Both venous and arterial blood flow seen within the testicles which appears normal. Impression: 1. Heterogeneous appearance remains within the right epididymis showing mild increased blood flow. These findings are stable from prior exam and presumably due to mild persisting epididymitis. 2. Other findings as described above are also felt to be incidental. Diagnostic code #3
[2016-12-01] MEDS ORDERED: Magnesium Sulfate/Water 2 GM in Premix Bag 1 BAG IV ONE (19:06)
[2016-12-01] MEDS ORDERED: HYDROmorphone 0.5 MG/0.5 ML Syringe IVPUSH ONE (19:22)
[2016-12-01 20:23] VITALS: BP 96/74
== END 2016-12-01 19:18 ==
LOC: JD.ED 14:45
DX: N45.1 Epididymitis (principal); I47.2 Ventricular tachycardia; R55 Syncope and collapse; F41.9 Anxiety disorder, unspecified; F32.9 Major depressive disorder, single episode, unspecified; E66.9 Obesity, unspecified; Z90.49 Acquired absence of other specified parts of digestive tract; Z98.49 Cataract extraction status, unspecified eye; Z96.649 Presence of unspecified artificial hip joint; Z88.6 Allergy status to analgesic agent; Z88.5 Allergy status to narcotic agent; Z88.8 Allergy status to other drugs, medicaments and biological substances
CPT/HCPCS: 36415; 76870; 80053; 83735; 84484; 85025; 86140; 93975; 96365; 96366; 96375; 96376; 99285; J0282; J1170; J2060; J7050; J3475

== ENCOUNTER 2017-04-13 12:48 | Emergency (ER) | payer OTHER ==
[2017-04-13 12:57] VITALS: BP 121/68
[2017-04-13] MEDS ORDERED: Albuterol/Ipratropium 3.0-0.5 MG/3 ML Neb Soln NEB ONE (13:45)
--- NOTE | 2017-04-13 13:52 | EDM.PDOC ---
ED HPI GENERAL MEDICAL PROBLEM - General Chief Complaint: Respiratory Problem Stated Complaint: SOB Time Seen by Provider: 04/13/17 12:52 Source of Information: Reports: Patient, Old Records History Limitations: Reports: No Limitations - History of Present Illness INITIAL COMMENTS - FREE TEXT/NARRATIVE: The patient states that he has had a cough and shortness of breath for about 2 weeks. His cough was initially productive of brownish phlegm, sometimes in globs , but changed to pink-tinged yesterday, 04/12/2017. His cough has been more difficult for the past 3 days, causing him to have left-sided chest pain when he coughs. He states that he had a fever up to 102, as measured by a digital oral thermometer, this past 04/11/2017. Today, his cough is dry. He states that he has had 3-4 days of a dry nose. He states that his ears are ringing and painful, and that he has a headache this morning. He states that he was diaphoretic last night. The patient denies recent retrosternal chest pain or palpitations. He states that he has a scratchy throat, but not a sore throat, per se. The patient has a history of COPD and obstructive sleep apnea. He wears CPAP with supplemental oxygen 2-1/2 L, at night. He states that he has been taking an albuterol neb twice in the morning, again around noon, then twice in the evening, on most days. The patient states that he did receive an influenza vaccine this season, either in January or February. The patient's PCP is Dr. Ignacio at the [facility]. Left Chest Pain Score (Numeric/FACES): 6 - Related Data Allergies Allergy/AdvReac Type Severity Reaction Status Date / Time acetaminophen [From Tylenol] Allergy Airway Verified 04/13/17 12:57 Tightness aspirin Allergy Airway Verified 04/13/17 12:57 Tightness diltiazem Allergy Cannot Verified 04/13/17 12:57 Remember guaifenesin [From Mucinex] Allergy Tachycardia Verified 04/13/17 12:58 hydromorphone [From Dilaudid] Allergy Cardiac Verified 04/13/17 12:57 Arrest meperidine HCl [From Demerol] Allergy Airway Verified 04/13/17 12:57 Tightness morphine Allergy Itching Verified 04/13/17 12:57 sumatriptan [From Imitrex] Allergy Cannot Verified 04/13/17 12:57 Remember sumatriptan succinate Allergy Cannot Verified 04/13/17 12:57 [From Imitrex] Remember haloperidol [From Haldol] AdvReac Change Verified 04/13/17 12:57 Mental Status haloperidol lactate AdvReac Change Verified 04/13/17 12:57 [From Haldol] Mental Status ketorolac tromethamine AdvReac Change Verified 04/13/17 12:57 [From Toradol] Mental Status antihistamines Allergy Airway Uncoded 04/13/17 12:57 Tightness Home Meds: Home Meds Clopidogrel [Plavix] 75 mg PO DAILY 04/12/14 [History] Furosemide [Lasix] 40 mg PO DAILY 04/12/14 [History] PARoxetine HCl [Paxil] 20 mg PO DAILY 04/12/14 [History] Potassium Chloride 10 meq PO BID 04/12/14 [History] Tamsulosin HCl [Flomax] 0.4 mg PO BID 04/12/14 [History] Tiotropium [Spiriva HandiHaler] 1 cap INH DAILY 04/12/14 [History] ClonazePAM [KlonoPIN] 0.5 mg PO QAM 02/03/15 [History] Simvastatin [Zocor] 20 mg PO BEDTIME 02/03/15 [History] Apixaban [Eliquis] 5 mg PO BID 01/23/16 [History] Budesonide/Formoterol [Symbicort 160-4.5 MCG] 2 puff INH BID 01/23/16 [History] Magnesium Oxide 420 mg PO DAILY 01/23/16 [History] Verapamil [Calan SR] 120 mg PO BID 01/23/16 [History] Albuterol Sulfate 1 vial INH Q6H 10/18/16 [History] Albuterol Sulfate [Proair Respiclick] 2 puff INH Q4H PRN 10/18/16 [History] ClonazePAM [KlonoPIN] 1 mg PO BEDTIME 10/18/16 [History] Ipratropium [place] 1 spray NASBOTH BID 10/18/16 [History] Ranitidine [Zantac] 300 mg PO QAM 10/18/16 [History] Cholecalciferol (Vitamin D3) [Vitamin D] 1,000 unit PO DAILY 04/13/17 [History] Mirtazapine 30 mg PO BEDTIME 04/13/17 [History] Past Medical History HEENT History: Reports: Impaired Vision Other HEENT History: wears eyeglasses and upper dentures Cardiovascular History: Reports: Afib (paroxysmal), CAD, Heart Failure, High Cholesterol, Hypertension, [place] (x 5) Respiratory History: Reports: COPD (nightly O2), Sleep Apnea (nightly CPAP) Gastrointestinal History: Reports: GERD, PUD Genitourinary History: Reports: BPH Psychiatric History: Reports: Anxiety, Depression Endocrine/Metabolic History: Reports: Obesity/BMI 30+, Other (See Below) ( Prediabetes) - Past Surgical History HEENT Surgical History: Reports: Cataract Surgery Cardiovascular Surgical History: Reports: Coronary Artery Stent (x 4) GI Surgical History: Reports: Appendectomy Musculoskeletal Surgical History: Reports: Hip Replacement (bilateral) Social & Family History - Family History Family Medical History: Noncontributory Oncologic: Reports: Leukemia Other Oncologic Family History: Brother - Tobacco Use Smoking Status *Q: Former Smoker Years of Tobacco use: 20 Packs/Tins Daily: 0.5 Used Tobacco, but Quit: Yes Month Tobacco Last Used: 2016 Second Hand Smoke Exposure: No - Caffeine Use Caffeine Use: Reports: None - Alcohol Use Days Per Week of Alcohol Use: 0 - Recreational Drug Use Recreational Drug Use: No - Living Situation & Occupation Living situation: Reports: , with Spouse Occupation: Disabled ED ROS GENERAL - Review of Systems Review Of Systems: ROS reveals no pertinent complaints other than HPI. ED EXAM, GENERAL - Physical Exam Exam: See Below Exam Limited By: No Limitations General Appearance: Alert, WD/WN, No Apparent Distress Eye Exam: Bilateral Eye: Normal Inspection Ears: Normal External Exam, Normal Canal, Hearing Grossly Normal, Normal TMs Nose: Normal Inspection, No Blood, Other (Bilateral nasal mucosa edema) Throat/Mouth: Normal Inspection, Normal Lips, Normal Teeth, Normal Gums, Normal Oropharynx, Normal Voice, No Airway Compromise Head: Atraumatic, Normocephalic Neck: Normal Inspection, Supple, Non-Tender, Full Range of Motion. No: Lymphadenopathy (L), Lymphadenopathy (R) Respiratory/Chest: No Respiratory Distress, No Accessory Muscle Use, Decreased Breath Sounds (Throughout), Wheezing (Expiratory, throughout), Prolonged Expiration. No: Crackles, Rhonchi Cardiovascular: Normal Peripheral Pulses, No Gallop, No JVD, No Murmur, No Rub, Irregularly Irregular Peripheral Pulses: 4+: Radial (L), Radial (R) GI/Abdominal: Normal Bowel Sounds, Soft, Non-Tender, No Organomegaly, No Distention, No Abnormal Bruit, No Mass, Other (Obese) (Male) Exam: Deferred Rectal (Males) Exam: Deferred Back Exam: Normal Inspection, Full Range of Motion, NT Extremities: Normal Inspection, Normal Range of Motion, No Pedal Edema, Normal Capillary Refill Neurological: Alert, Oriented, Normal Cognition, No Motor/Sensory Deficits Psychiatric: Normal Affect Skin Exam: Warm, Dry, Intact, Normal Color, No Rash EKG INTERPRETATION EKG Date: 04/13/17 Time: 13:50 Rhythm: A-Fib Rate (Beats/Min): 78 [place]: Normal P-Wave: Absent QRS: Normal ST-T: Normal QT: Normal Comparison: No Change (12/01/2016) Course - Vital Signs Last Recorded V/S: Last Vital Signs Temp 36.4 C 04/13/17 12:52 Pulse 85 04/13/17 12:52 Resp 23 H 04/13/17 12:52 BP 121/68 04/13/17 12:52 Pulse Ox 92 L 04/13/17 15:45 - Orders/Labs/Meds Orders: Active Orders 24 hr Category Date Time Status EKG Documentation Completion [RC] STAT Care 04/13/17 13:45 Active RT Aerosol Therapy [RC] ASDIRECTED Care 04/13/17 13:45 Active RT Aerosol Therapy [RC] ASDIRECTED Care 04/13/17 15:19 Active CULTURE BLOOD [BC] Stat Lab 04/13/17 15:10 Received CULTURE BLOOD [BC] Stat Lab 04/13/17 15:20 Received Blood Culture x2 Reflex Set [OM.PC] Stat Oth 04/13/17 13:45 Ordered Labs: Laboratory Tests 04/13/17 04/13/17 04/13/17 Range/Units 13:00 13:00 14:15 WBC 9.20 H (4.23-9.07) K/mm3 RBC 4.72 (4.63-6.08) M/mm3 Hgb 15.0 (13.7-17.5) gm/L Hct 46.1 (40.1-51.0) % MCV 97.7 H (79.0-92.2) fl MCH 31.8 (25.7-32.2) pg MCHC 32.5 (32.2-35.5) g/dl RDW Std Deviation 50.1 H (35.1-43.9) fL Plt Count 188 (163-337) K/mm3 MPV 10.0 (9.4-12.3) fl Neutrophils % (Manual) 72 H (40-60) % Band Neutrophils % 0 (0-10) % Lymphocytes % (Manual) 23 (20-40) % Atypical Lymphs % 0 % Monocytes % (Manual) 4 (2-10) % Eosinophils % (Manual) 1 (0.8-7.0) % Basophils % (Manual) 0 L (0.2-1.2) Platelet Estimate Adequate RBC Morph Comment Normal Puncture Site Lt radial ABG pH 7.41 (7.35-7.45) ABG pCO2 40.9 (35.0-45.0) mmHg ABG pO2 59.0 L (80.0-100.0) mmHg ABG HCO3 25.3 (22.0-26.0) meq/L ABG O2 Saturation 91.3 L (96.0-97.0) % ABG Base Excess 1.1 (-2-2.0) Oskar Test Positive A-a Gradient 25 mmHg O2 Delivery Device Room air FiO2 21.00 (21.00-100.00) % Sodium 139 (136-145) mEq/L Potassium 4.0 (3.5-5.1) mEq/L Chloride 103 (98-107) mEq/L Carbon Dioxide 26 (21-32) mEq/L Anion Gap 14.0 (5-15) BUN 21 H (7-18) mg/dL Creatinine 1.7 H (0.7-1.3) mg/dL Est Cr Clr Drug Dosing 36.18 mL/min Estimated GFR (MDRD) 40 (>60) mL/min BUN/Creatinine Ratio 12.4 L (14-18) Glucose 153 H (80-115) mg/dL Lactic Acid (0.4-2.0) mmol/L Calcium 8.8 (8.5-10.1) mg/dL Total Bilirubin 0.5 (0.2-1.0) mg/dL AST 16 (15-37) U/L ALT 23 (16-63) U/L Alkaline Phosphatase 138 H (46-116) U/L Troponin I < 0.017 (0.00-0.056) ng/mL NT-Pro-B Natriuret Pep 889 H (0-125) pg/mL Total Protein 7.3 (6.4-8.2) g/dl Albumin 3.5 (3.4-5.0) g/dl Globulin 3.8 gm/dL Albumin/Globulin Ratio 0.9 L (1-2) 04/13/17 Range/Units 15:10 WBC (4.23-9.07) K/mm3 RBC (4.63-6.08) M/mm3 Hgb (13.7-17.5) gm/L Hct (40.1-51.0) % MCV (79.0-92.2) fl MCH (25.7-32.2) pg MCHC (32.2-35.5) g/dl RDW Std Deviation (35.1-43.9) fL Plt Count (163-337) K/mm3 MPV (9.4-12.3) fl Neutrophils % (Manual) (40-60) % Band Neutrophils % (0-10) % Lymphocytes % (Manual) (20-40) % Atypical Lymphs % % Monocytes % (Manual) (2-10) % Eosinophils % (Manual) (0.8-7.0) % Basophils % (Manual) (0.2-1.2) Platelet Estimate RBC Morph Comment Puncture Site ABG pH (7.35-7.45) ABG pCO2 (35.0-45.0) mmHg ABG pO2 (80.0-100.0) mmHg ABG HCO3 (22.0-26.0) meq/L ABG O2 Saturation (96.0-97.0) % ABG Base Excess (-2-2.0) Oskar Test A-a Gradient mmHg O2 Delivery Device FiO2 (21.00-100.00) % Sodium (136-145) mEq/L Potassium (3.5-5.1) mEq/L Chloride (98-107) mEq/L Carbon Dioxide (21-32) mEq/L Anion Gap (5-15) BUN (7-18) mg/dL Creatinine (0.7-1.3) mg/dL Est Cr Clr Drug Dosing mL/min Estimated GFR (MDRD) (>60) mL/min BUN/Creatinine Ratio (14-18) Glucose (80-115) mg/dL Lactic Acid 1.1 (0.4-2.0) mmol/L Calcium (8.5-10.1) mg/dL Total Bilirubin (0.2-1.0) mg/dL AST (15-37) U/L ALT (16-63) U/L Alkaline Phosphatase (46-116) U/L Troponin I (0.00-0.056) ng/mL NT-Pro-B Natriuret Pep (0-125) pg/mL Total Protein (6.4-8.2) g/dl Albumin (3.4-5.0) g/dl Globulin gm/dL Albumin/Globulin Ratio (1-2) Meds: Medications Discontinued Medications Generic Name Dose Route Start Last Admin Trade Name Freq PRN Reason Stop Dose Admin Albuterol 2.5 mg 04/13/17 15:19 04/13/17 15:44 Proventil Neb Soln [facility] 04/13/17 15:20 2.5 mg ONETIME ONE Administration Albuterol/Ipratropium 3 ml 04/13/17 13:45 04/13/17 14:06 Duoneb 3.0-0.5 Mg/3 Ml [facility] 04/13/17 13:46 3 ml ONETIME ONE Administration - Re-Assessments/Exams Free Text/Narrative Re-Assessment/Exam: 04/13/17 14:14 Two-view chest radiograph reviewed. There is borderline cardiomegaly, and the heart is predominantly on the right side. No pulmonary vascular congestion. No pleural effusions. No focal infiltrate, although there does appear to be atelectasis at the right base. No pneumothorax. Hyperinflation, consistent with COPD, noted. Formal read per the Radiologist pending. 04/13/17 14:43 The patient's WBC count is mildly elevated at 9.20, but with 0% bandemia. His BUN/Cr is modestly elevated at 21/1.7. Review of prior medical records indicate that the patient has had renal insufficiency in the past, with a creatinine is high as 1.7 on 10/18/2016. The patient's BNP is modestly elevated at 889, although this is likely due to the patient's renal insufficiency. The patient's ABG demonstrates mild hypoxia, however, is otherwise normal. 04/13/17 15:20 Following a DuoNeb, the patient's lungs still sound tight. He continues to have prolonged exhalation with expiratory wheezes. I have ordered an albuterol neb. 04/13/17 16:16 Following the albuterol neb, the patient's lungs have opened up quite a bit. He still has distant lung sounds, but no longer has expiratory wheezes, and his exhalations or not as prolonged. Test results discussed with the patient. He has some renal insufficiency, but I do not find that he has pneumonia. His influenza swab returned as negative. His ABG shows no significant abnormalities, consistent with a severe COPD exacerbation, although I do believe that what he was experiencing was a mild COPD exacerbation superimposed on advanced COPD. I had the patient demonstrate for me his use of his albuterol MDI, and he did not use it properly. I recommended that he use a space chamber, and it turns out that the patient already has a space chamber, that he uses with his Spiriva twice a day. He was not aware that he can use the space chamber for any MDI. I discussed its proper use. I would like the patient to follow up with his PCP at the [facility] this week, and the patient said that that would be fine. Departure - Departure Time of Disposition: 16:19 Disposition: Home, Self-Care 01 Condition: Fair Clinical Impression: COPD exacerbation, Chronic kidney disease - Discharge Information Referrals: Xuan Ignacio DO [Primary Care Provider] - Forms: ED Department Discharge Additional Instructions: You were seen in the emergency room for a cough, shortness of breath, dry nose, ringing ears, headache, fever, and sweatiness. Workup in the ER included blood work, 2 sets of blood cultures, an arterial blood gas, an influenza swab, an ECG, and a chest x-ray. For the most part, your workup was unremarkable. You do not have pneumonia. You do not have influenza. You have not suffered a heart attack. Your kidney function is impaired, but this is chronic for you. Your symptoms improved following a DuoNeb and an albuterol neb. Your symptoms were MOST LIKELY due to a mild COPD exacerbation, superimposed on advanced COPD. We recommend that you take albuterol - either by a neb, or by your inhaler via your Space Chamber, as often as needed for shortness of breath with wheezing, with or without a cough. If you require albuterol more often than every 4 hours , you should be seen by a doctor. If you use your albuterol inhaler, make sure that you shake the inhaler for 1 minute before using it. Always use your Space Chamber whenever using an inhaler. We recommend that you follow-up with your PCP, Dr. Ignacio, this week. If any other problems, please do not hesitate to return to the ER. - My Orders Last 24 Hours: My Active Orders 04/13/17 13:45 EKG Documentation Completion [RC] STAT RT Aerosol Therapy [RC] ASDIRECTED Blood Culture x2 Reflex Set [OM.PC] Stat 04/13/17 15:10 CULTURE BLOOD [BC] Stat 04/13/17 15:19 RT Aerosol Therapy [RC] ASDIRECTED 04/13/17 15:20 CULTURE BLOOD [BC] Stat - Assessment/Plan Last 24 Hours: My Active Orders 04/13/17 13:45 EKG Documentation Completion [RC] STAT RT Aerosol Therapy [RC] ASDIRECTED Blood Culture x2 Reflex Set [OM.PC] Stat 04/13/17 15:10 CULTURE BLOOD [BC] Stat 04/13/17 15:19 RT Aerosol Therapy [RC] ASDIRECTED 04/13/17 15:20 CULTURE BLOOD [BC] Stat
--- NOTE | 2017-04-13 14:58 | CR ---
Chest: Two views of the chest were obtained. Comparison: Prior chest x-ray of 10/20/16. Heart is slightly enlarged. Minimal scarring within the right lung base is seen. Mild tortuosity of the thoracic aorta is seen. Lungs are hyperinflated but show no acute appearing parenchymal densities. Bony structures are unremarkable for the patient's age. Impression: 1. Incidental findings. Nothing acute is appreciated. Diagnostic code #2
[2017-04-13] MEDS ORDERED: Albuterol 0.083% 2.5 MG/3 ML Neb Soln NEB ONE (15:19)
== END 2017-04-13 16:34 | disposition home or self-care (01) ==
LOC: JD.ED 12:48
DX: J44.1 Chronic obstructive pulmonary disease with (acute) exacerbation (principal); I13.0 Hypertensive heart and chronic kidney disease with heart failure and stage 1 through stage 4 chronic kidney disease, or unspecified chronic kidney disease; N18.9 Chronic kidney disease, unspecified; I50.9 Heart failure, unspecified; E78.00 Pure hypercholesterolemia, unspecified; Z88.6 Allergy status to analgesic agent; Z88.5 Allergy status to narcotic agent; Z88.8 Allergy status to other drugs, medicaments and biological substances; Z88.1 Allergy status to other antibiotic agents; Z79.899 Other long term (current) drug therapy; Z87.891 Personal history of nicotine dependence
CPT/HCPCS: 36415; 36600; 71046; 71046-26; 80053; 82803; 83605; 83880; 84484; 85025; 87040; 87804; 93005; 94640; 99284; 99285-25

== ENCOUNTER 2017-06-11 20:14 | Inpatient (IN) | payer OTHER ==
[2017-06-11] MEDS ORDERED: Sodium Chloride 0.9% 10 ML Syringe FLUSH PRN (20:17)
[2017-06-11] MEDS ORDERED: Albuterol/Ipratropium 3.0-0.5 MG/3 ML Neb Soln NEB ONE ×2 (20:18→21:33)
[2017-06-11] MEDS ORDERED: methylPREDNISolone Sodium Succinate 125 MG/2 ML SDV IVPUSH ONE (20:19)
[2017-06-11] MEDS ORDERED: LORazepam 2 MG/ML SDV IVPUSH ONE (21:33)
--- NOTE | 2017-06-11 21:59 | EDM.PDOC ---
ED HPI GENERAL MEDICAL PROBLEM - General Chief Complaint: Respiratory Problem Stated Complaint: SOB/CHEST HURTS Time Seen by Provider: 06/11/17 20:17 Source of Information: Reports: Patient, Family History Limitations: Reports: No Limitations - History of Present Illness INITIAL COMMENTS - FREE TEXT/NARRATIVE: The patient presents with shortness of breath and chest pain. This started yesterday. The pain is in the left lower chest. He is short of breath with exertion. He has a history of COPD and CHF. He denies fever or chills. He has been taking his medications. He has a dry cough and he cannot get up any phlegm. He was walking into the ER receptionist doctor's office and he passed out in the entry way by the sliding doors. He did not hit his head. He came to right away and we were able to help him up to a wheelchair and then to a cot. He had another episode where he said he was going to pass out and he went out for about 5 seconds. He had no seizure activity and there was no abnormality on the heart monitor. Onset: Gradual Duration: Day(s): (2) Location: Reports: Chest Quality: Reports: Sharp Severity: Mild Improves with: Reports: None Worsens with: Reports: None Associated Symptoms: Reports: Chest Pain, Cough, Shortness of Breath. Denies: Fever/Chills, Headaches, Nausea/Vomiting Chest Pain Score (Numeric/FACES): 5 - Related Data Allergies Allergy/AdvReac Type Severity Reaction Status Date / Time acetaminophen [From Tylenol] Allergy Airway Verified 06/11/17 20:21 Tightness aspirin Allergy Airway Verified 06/11/17 20:21 Tightness diltiazem Allergy Cannot Verified 06/11/17 20:21 Remember guaifenesin [From Mucinex] Allergy Tachycardia Verified 06/11/17 20:21 hydromorphone [From Dilaudid] Allergy Cardiac Verified 06/11/17 20:21 Arrest meperidine HCl [From Demerol] Allergy Airway Verified 06/11/17 20:21 Tightness morphine Allergy Itching Verified 06/11/17 20:21 sumatriptan [From Imitrex] Allergy Cannot Verified 06/11/17 20:21 Remember sumatriptan succinate Allergy Cannot Verified 06/11/17 20:21 [From Imitrex] Remember haloperidol [From Haldol] AdvReac Change Verified 06/11/17 20:21 Mental Status haloperidol lactate AdvReac Change Verified 06/11/17 20:21 [From Haldol] Mental Status ketorolac tromethamine AdvReac Change Verified 06/11/17 20:21 [From Toradol] Mental Status antihistamines Allergy Airway Uncoded 04/13/17 12:57 Tightness Home Meds: Home Meds Clopidogrel [Plavix] 75 mg PO DAILY 04/12/14 [History] Furosemide [Lasix] 40 mg PO DAILY 04/12/14 [History] PARoxetine HCl [Paxil] 20 mg PO DAILY 04/12/14 [History] Potassium Chloride 20 meq PO BID 04/12/14 [History] Tamsulosin HCl [Flomax] 0.4 mg PO BID 04/12/14 [History] Tiotropium [Spiriva HandiHaler] 1 cap INH DAILY 04/12/14 [History] ClonazePAM [KlonoPIN] 0.5 mg PO QAM 02/03/15 [History] Simvastatin [Zocor] 20 mg PO BEDTIME 02/03/15 [History] Apixaban [Eliquis] 5 mg PO BID 01/23/16 [History] Budesonide/Formoterol [Symbicort 160-4.5 MCG] 2 puff INH BID 01/23/16 [History] Verapamil [Calan SR] 120 mg PO BID 01/23/16 [History] Albuterol Sulfate 1 vial INH Q6H 10/18/16 [History] Albuterol Sulfate [Proair Respiclick] 2 puff INH Q4H PRN 10/18/16 [History] ClonazePAM [KlonoPIN] 1 mg PO BEDTIME 10/18/16 [History] Ipratropium [place] 1 spray NASBOTH BID 10/18/16 [History] Ranitidine [Zantac] 300 mg PO QAM 10/18/16 [History] Cholecalciferol (Vitamin D3) [Vitamin D] 1,000 unit PO DAILY 04/13/17 [History] Mirtazapine 30 mg PO BEDTIME 04/13/17 [History] Past Medical History HEENT History: Reports: Impaired Vision Other HEENT History: wears eyeglasses and upper dentures Cardiovascular History: Reports: Afib, CAD, Heart Failure, High Cholesterol, Hypertension, CO Other Cardiovascular History: on coumadin, stents in 1999, 5 CO, and Afib Respiratory History: Reports: COPD, Sleep Apnea Gastrointestinal History: Reports: GERD, PUD Genitourinary History: Reports: BPH Musculoskeletal History: Reports: None Neurological History: Reports: Headaches, Chronic Psychiatric History: Reports: Anxiety, Depression Endocrine/Metabolic History: Reports: Obesity/BMI 30+, Other (See Below) Other Endocrine/Metabolic History: boardline diabetic - Past Surgical History HEENT Surgical History: Reports: Cataract Surgery Cardiovascular Surgical History: Reports: Coronary Artery Stent GI Surgical History: Reports: Appendectomy Musculoskeletal Surgical History: Reports: Hip Replacement Social & Family History - Family History Family Medical History: Noncontributory Oncologic: Reports: Leukemia Other Oncologic Family History: Brother - Tobacco Use Smoking Status *Q: Former Smoker Years of Tobacco use: 20 Packs/Tins Daily: 0.5 Used Tobacco, but Quit: Yes Month Tobacco Last Used: 2016 Second Hand Smoke Exposure: No - Caffeine Use Caffeine Use: Reports: Soda - Alcohol Use Days Per Week of Alcohol Use: 0 - Recreational Drug Use Recreational Drug Use: No - Living Situation & Occupation Living situation: Reports: , with Spouse Occupation: Disabled ED ROS GENERAL - Review of Systems Review Of Systems: See Below Constitutional: Reports: No Symptoms HEENT: Reports: No Symptoms Respiratory: Reports: Shortness of Breath, Cough Cardiovascular: Reports: Chest Pain Endocrine: Reports: No Symptoms GI/Abdominal: Reports: No Symptoms : Reports: No Symptoms Musculoskeletal: Reports: No Symptoms ED EXAM, GENERAL - Physical Exam Exam: See Below Exam Limited By: No Limitations General Appearance: Alert, No Apparent Distress Ears: Normal External Exam Nose: Normal Inspection Head: Atraumatic, Normocephalic Neck: Normal Inspection Respiratory/Chest: No Respiratory Distress, Wheezing Cardiovascular: No Edema, No Murmur, Irregularly Irregular GI/Abdominal: Soft, Non-Tender, No Organomegaly, No Mass Back Exam: Normal Inspection Extremities: Normal Inspection Neurological: Alert, Oriented, No Motor/Sensory Deficits EKG INTERPRETATION EKG Date: 06/11/17 Time: 20:18 Rhythm: A-Fib Rate (Beats/Min): 92 [place]: Normal QRS: Normal ST-T: Normal QT: Normal Course - Vital Signs Last Recorded V/S: Last Vital Signs Temp 98.6 F 06/11/17 20:22 Pulse 88 06/11/17 20:22 Resp 24 H 06/11/17 20:22 BP 130/89 06/11/17 20:22 Pulse Ox 97 06/11/17 20:26 - Orders/Labs/Meds Orders: Active Orders 24 hr Category Date Time Status Cardiac Monitoring [RC] . DIRECTED Care 06/11/17 20:18 Active EKG Documentation Completion [RC] STAT Care 06/11/17 20:18 Active Oxygen Therapy [RC] PRN Care 06/11/17 20:18 Active Peripheral IV Care [RC] . DIRECTED Care 06/11/17 20:18 Active RT Aerosol Therapy [RC] ASDIRECTED Care 06/11/17 20:19 Active RT Aerosol Therapy [RC] ASDIRECTED Care 06/11/17 21:33 Active ABG [BLOOD GAS ARTERIAL] [BG] Stat Lab 06/11/17 21:49 Ordered Sodium Chloride 0.9% [Saline Flush] Med 06/11/17 20:17 Active 10 ml FLUSH ASDIRECTED PRN Peripheral IV Insertion Adult [OM.PC] Stat Oth 06/11/17 20:17 Ordered Medication Orders Sodium Chloride (Saline Flush) 10 ml FLUSH ASDIRECTED PRN PRN Reason: Keep Vein Open Last Admin: 06/11/17 20:25 Dose: 10 ml Labs: Laboratory Tests 06/11/17 06/11/17 06/11/17 Range/Units 20:25 20:25 20:25 WBC 8.90 (4.23-9.07) K/mm3 RBC 4.47 L (4.63-6.08) M/mm3 Hgb 14.2 (13.7-17.5) gm/L Hct 43.5 (40.1-51.0) % MCV 97.3 H (79.0-92.2) fl MCH 31.8 (25.7-32.2) pg MCHC 32.6 (32.2-35.5) g/dl RDW Std Deviation 51.8 H (35.1-43.9) fL Plt Count 174 (163-337) K/mm3 MPV 9.5 (9.4-12.3) fl Neut % (Auto) 70.0 H (34.0-67.9) % Lymph % (Auto) 20.8 L (21.8-53.1) % [place] % (Auto) 6.1 (5.3-12.2) % Eos % (Auto) 2.6 (0.8-7.0) Baso % (Auto) 0.3 (0.1-1.2) % Neut # (Auto) 6.23 H (1.78-5.38) K/mm3 Lymph # (Auto) 1.85 (1.32-3.57) K/mm3 [place] # (Auto) 0.54 (0.30-0.82) K/mm3 Eos # (Auto) 0.23 (0.04-0.54) K/mm3 Baso # (Auto) 0.03 (0.01-0.08) K/mm3 Puncture Site ABG pH (7.35-7.45) ABG pCO2 (35.0-45.0) mmHg ABG pO2 (80.0-100.0) mmHg ABG HCO3 (22.0-26.0) meq/L ABG O2 Saturation (96.0-97.0) % ABG Base Excess (-2-2.0) O2 Delivery Device Oxygen Flow Rate Sodium 138 (136-145) mEq/L Potassium 3.8 (3.5-5.1) mEq/L Chloride 102 (98-107) mEq/L Carbon Dioxide 26 (21-32) mEq/L Anion Gap 13.8 (5-15) BUN 18 (7-18) mg/dL Creatinine 1.6 H (0.7-1.3) mg/dL Est Cr Clr Drug Dosing 44.19 mL/min Estimated GFR (MDRD) 43 (>60) mL/min BUN/Creatinine Ratio 11.3 L (14-18) Glucose 156 H (80-115) mg/dL Calcium 9.0 (8.5-10.1) mg/dL Total Bilirubin 0.8 (0.2-1.0) mg/dL AST 16 (15-37) U/L ALT 20 (16-63) U/L Alkaline Phosphatase 131 H (46-116) U/L Troponin I < 0.017 (0.00-0.056) ng/mL NT-Pro-B Natriuret Pep 380 H (0-125) pg/mL Total Protein 6.9 (6.4-8.2) g/dl Albumin 3.4 (3.4-5.0) g/dl Globulin 3.5 gm/dL Albumin/Globulin Ratio 1.0 (1-2) 06/11/17 Range/Units 20:30 WBC (4.23-9.07) K/mm3 RBC (4.63-6.08) M/mm3 Hgb (13.7-17.5) gm/L Hct (40.1-51.0) % MCV (79.0-92.2) fl MCH (25.7-32.2) pg MCHC (32.2-35.5) g/dl RDW Std Deviation (35.1-43.9) fL Plt Count (163-337) K/mm3 MPV (9.4-12.3) fl Neut % (Auto) (34.0-67.9) % Lymph % (Auto) (21.8-53.1) % [place] % (Auto) (5.3-12.2) % Eos % (Auto) (0.8-7.0) Baso % (Auto) (0.1-1.2) % Neut # (Auto) (1.78-5.38) K/mm3 Lymph # (Auto) (1.32-3.57) K/mm3 [place] # (Auto) (0.30-0.82) K/mm3 Eos # (Auto) (0.04-0.54) K/mm3 Baso # (Auto) (0.01-0.08) K/mm3 Puncture Site Lt radial ABG pH 7.38 (7.35-7.45) ABG pCO2 44.4 (35.0-45.0) mmHg ABG pO2 63.0 L (80.0-100.0) mmHg ABG HCO3 25.6 (22.0-26.0) meq/L ABG O2 Saturation 93.5 L (96.0-97.0) % ABG Base Excess 0.7 (-2-2.0) O2 Delivery Device Nasal cannula Oxygen Flow Rate 4.5 Sodium (136-145) mEq/L Potassium (3.5-5.1) mEq/L Chloride (98-107) mEq/L Carbon Dioxide (21-32) mEq/L Anion Gap (5-15) BUN (7-18) mg/dL Creatinine (0.7-1.3) mg/dL Est Cr Clr Drug Dosing mL/min Estimated GFR (MDRD) (>60) mL/min BUN/Creatinine Ratio (14-18) Glucose (80-115) mg/dL Calcium (8.5-10.1) mg/dL Total Bilirubin (0.2-1.0) mg/dL AST (15-37) U/L ALT (16-63) U/L Alkaline Phosphatase (46-116) U/L Troponin I (0.00-0.056) ng/mL NT-Pro-B Natriuret Pep (0-125) pg/mL Total Protein (6.4-8.2) g/dl Albumin (3.4-5.0) g/dl Globulin gm/dL Albumin/Globulin Ratio (1-2) Meds: Medications Generic Name Dose Route Start Last Admin Trade Name Estivenq PRN Reason Stop Dose Admin Sodium Chloride 10 ml 06/11/17 20:17 06/11/17 20:25 Saline Flush FLUSH 10 ml ASDIRECTED PRN Administration Keep Vein Open Discontinued Medications Generic Name Dose Route Start Last Admin Trade Name Freq PRN Reason Stop Dose Admin Albuterol/Ipratropium 3 ml 06/11/17 20:18 06/11/17 20:24 Duoneb 3.0-0.5 Mg/3 Ml NEB 06/11/17 20:19 3 ml ONETIME ONE Administration Albuterol/Ipratropium 3 ml 06/11/17 21:33 06/11/17 21:47 Duoneb 3.0-0.5 Mg/3 Ml NEB 06/11/17 21:34 3 ml ONETIME ONE Administration Lorazepam 0.5 mg 06/11/17 21:33 06/11/17 21:42 Ativan IVPUSH 06/11/17 21:34 0.5 mg ONETIME ONE Administration Methylprednisolone Sodium Succinate 125 mg 06/11/17 20:19 06/11/17 20:24 Solu-Medrol IVPUSH 06/11/17 20:20 125 mg ONETIME ONE Administration - Re-Assessments/Exams Free Text/Narrative Re-Assessment/Exam: 06/11/17 22:00 A medical alert was called. The patient was having low oxygen saturations. He was put on oxygen and an IV was established. I ordered an EKG, CXR, labs, duoneb, and solu-medrol 125mg IV. His EKG shows A-fib. His CXR shows a large heart with no infiltrates or CHF. His CBC looks good. His pH was 7.38. His pCO2 was normal at 44. His pO2 was low at 63. His creatinine was elevated at 1.6. His glucose was elevated at 156. His troponin was negative. His BNP was slightly elevated at 380. He feels a little better. He has some wheezes still. I ordered another duoneb. He is having some restless legs so I ordered some ativan 0.5mg IV. I feel he needs to be admitted. I called Dr Briones and she agreed. Departure - Departure Time of Disposition: 22:05 Disposition: Admitted As Inpatient 64 Condition: Serious Clinical Impression: COPD exacerbation, Hypoxia, Renal insufficiency Syncope Qualifiers: Syncope type: unspecified Qualified Code(s): R55 - Syncope and collapse - Discharge Information Referrals: PCP,None [Primary Care Provider] - - My Orders Last 24 Hours: My Active Orders 06/11/17 20:17 Sodium Chloride 0.9% [Saline Flush] 10 ml FLUSH ASDIRECTED PRN Peripheral IV Insertion Adult [OM.PC] Stat 06/11/17 20:18 Cardiac Monitoring [RC] . DIRECTED EKG Documentation Completion [RC] STAT Oxygen Therapy [RC] PRN Peripheral IV Care [RC] . DIRECTED 06/11/17 20:19 RT Aerosol Therapy [RC] ASDIRECTED 06/11/17 21:33 RT Aerosol Therapy [RC] ASDIRECTED 06/11/17 21:49 ABG [BLOOD GAS ARTERIAL] [BG] Stat - Assessment/Plan Last 24 Hours: My Active Orders 06/11/17 20:17 Sodium Chloride 0.9% [Saline Flush] 10 ml FLUSH ASDIRECTED PRN Peripheral IV Insertion Adult [OM.PC] Stat 06/11/17 20:18 Cardiac Monitoring [RC] . DIRECTED EKG Documentation Completion [RC] STAT Oxygen Therapy [RC] PRN Peripheral IV Care [RC] . DIRECTED 06/11/17 20:19 RT Aerosol Therapy [RC] ASDIRECTED 06/11/17 21:33 RT Aerosol Therapy [RC] ASDIRECTED 06/11/17 21:49 ABG [BLOOD GAS ARTERIAL] [BG] Stat
[2017-06-12] MEDS ORDERED: Albuterol 0.083% 2.5 MG/3 ML Neb Soln NEB PRN (00:40)
[2017-06-12] MEDS ORDERED: Acetaminophen Soln 650 MG/20.3 ML UD Cup PO PRN (00:46)
[2017-06-12] MEDS ORDERED: Temazepam 7.5 MG Cap PO PRN (00:47)
[2017-06-12] MEDS ORDERED: Ondansetron 4 MG/2 ML SDV IVPUSH PRN (00:48)
[2017-06-12] MEDS ORDERED: Levofloxacin/Dextrose 5%-Water 750 MG in Premix Bag 1 BAG IV SCH ×4 (01:00)
[2017-06-12] MEDS ORDERED: Sodium Chloride 0.9% 1,000 ML IV SCH (01:00)
[2017-06-12] MEDS ORDERED: Enoxaparin 30 MG/0.3 ML Syringe SUBCUT ONE (01:00)
[2017-06-12] MEDS: methylPREDNISolone Sodium Succinate 125 MG/2 ML SDV IVPUSH SCH ×4 (01:43→22:12)
[2017-06-12] MEDS: Albuterol/Ipratropium 3.0-0.5 MG/3 ML Neb Soln NEB SCH ×4 (05:29→21:19)
--- NOTE | 2017-06-12 06:51 | PCM.HP ---
H&P History of Present Illness - General Date of Service: 06/12/17 Admit Problem/Dx: Admission Diagnosis/Problem Admission Diagnosis/Problem COPD, Moderate chronic obstructive pulmonary disease Source of Information: Patient, Other (ED notes) History Limitations: Reports: No Limitations - History of Present Illness Initial Comments - Free Text/Narative: Jeffy is a 66yo male admitted last night with COPD exacerbation and hypoxia. He had 2 syncopal episodes upon arrival to ED which was ambulatory. CXR is with cardiomegaly but no obvious PNA or infiltrates. BNP was 380. He was given nebx x 2 with good improvement of aeration but maintained on supplemental oxygen. Overnight he was on 4-5L/NC with saturations in the mid 90's. He was afebrile. PMH is significant for COPD, , SWAPNIL, CHF, A-Fib, HTN, HLD, CAD s/p [place] with PCI, BPH, GERD, PUD, Chronic CARDENAS, anxiety/depression and pre-DM. He is a former smoker quit in 2017, and disabled. He is full code status. Onset of Symptoms: Reports: Gradual (over 2 days [employer]) Duration of Symptoms: Reports: Getting Worse Location: Reports: Chest (heavy, unable to catch his air, worse with exertion) Improves with: Reports: Medication (nebs), Rest Worsens with: Reports: Cold Therapy, Movement Associated Symptoms: Reports: Chest Pain (heaviness), Cough (dry), Headaches ( acute on chronic), Shortness of Breath, Syncope (x 2 in ED). Denies: Confusion , cough w sputum, Diaphoresis, Fever/Chills, Nausea/Vomiting, Seizure Chest Pain Score (Numeric/FACES): 5 - Related Data Allergies/Adverse Reactions: Allergies Allergy/AdvReac Type Severity Reaction Status Date / Time acetaminophen [From Tylenol] Allergy Airway Verified 06/11/17 20:21 Tightness aspirin Allergy Airway Verified 06/11/17 20:21 Tightness diltiazem Allergy Cannot Verified 06/11/17 20:21 Remember guaifenesin [From Mucinex] Allergy Tachycardia Verified 06/11/17 20:21 hydromorphone [From Dilaudid] Allergy Cardiac Verified 06/11/17 20:21 Arrest meperidine HCl [From Demerol] Allergy Airway Verified 06/11/17 20:21 Tightness morphine Allergy Itching Verified 06/11/17 20:21 sumatriptan [From Imitrex] Allergy Cannot Verified 06/11/17 20:21 Remember sumatriptan succinate Allergy Cannot Verified 06/11/17 20:21 [From Imitrex] Remember haloperidol [From Haldol] AdvReac Change Verified 06/11/17 20:21 Mental Status haloperidol lactate AdvReac Change Verified 06/11/17 20:21 [From Haldol] Mental Status ketorolac tromethamine AdvReac Change Verified 06/11/17 20:21 [From Toradol] Mental Status antihistamines Allergy Airway Uncoded 04/13/17 12:57 Tightness Home Medications: Home Meds Clopidogrel [Plavix] 75 mg PO DAILY 04/12/14 [History] Furosemide [Lasix] 40 mg PO DAILY 04/12/14 [History] PARoxetine HCl [Paxil] 20 mg PO DAILY 04/12/14 [History] Potassium Chloride 20 meq PO BID 04/12/14 [History] Tamsulosin HCl [Flomax] 0.4 mg PO BID 04/12/14 [History] Tiotropium [Spiriva HandiHaler] 1 cap INH DAILY 04/12/14 [History] ClonazePAM [KlonoPIN] 0.5 mg PO QAM 02/03/15 [History] Simvastatin [Zocor] 20 mg PO BEDTIME 02/03/15 [History] Apixaban [Eliquis] 5 mg PO BID 01/23/16 [History] Budesonide/Formoterol [Symbicort 160-4.5 MCG] 2 puff INH BID 01/23/16 [History] Verapamil [Calan SR] 120 mg PO BID 01/23/16 [History] Albuterol Sulfate 1 vial INH Q6H 10/18/16 [History] Albuterol Sulfate [Proair Respiclick] 2 puff INH Q4H PRN 10/18/16 [History] ClonazePAM [KlonoPIN] 1 mg PO BEDTIME 10/18/16 [History] Ipratropium Wainwright 1 spray NASBOTH BID 10/18/16 [History] Ranitidine [Zantac] 300 mg PO QAM 10/18/16 [History] Cholecalciferol (Vitamin D3) [Vitamin D] 1,000 unit PO DAILY 04/13/17 [History] Mirtazapine 30 mg PO BEDTIME 04/13/17 [History] Past Medical History HEENT History: Reports: Impaired Vision Other HEENT History: wears eyeglasses and upper dentures Cardiovascular History: Reports: Afib, CAD, Heart Failure, High Cholesterol, Hypertension, [place] Other Cardiovascular History: on coumadin, stents in 1999, 5 [place], and Afib Respiratory History: Reports: COPD, Sleep Apnea Gastrointestinal History: Reports: GERD, PUD Genitourinary History: Reports: BPH Musculoskeletal History: Reports: None Neurological History: Reports: Headaches, Chronic Psychiatric History: Reports: Anxiety, Depression Endocrine/Metabolic History: Reports: Obesity/BMI 30+, Other (See Below) Other Endocrine/Metabolic History: boardline diabetic- checks AM BS daily - Past Surgical History HEENT Surgical History: Reports: Cataract Surgery Cardiovascular Surgical History: Reports: Coronary Artery Stent GI Surgical History: Reports: Appendectomy Musculoskeletal Surgical History: Reports: Hip Replacement Social & Family History - Family History Family Medical History: Noncontributory Oncologic: Reports: Leukemia Other Oncologic Family History: Brother - Tobacco Use Smoking Status *Q: Former Smoker Years of Tobacco use: 15 Packs/Tins Daily: 0.5 Used Tobacco, but Quit: Yes Month Tobacco Last Used: 2016 Second Hand Smoke Exposure: No - Caffeine Use Caffeine Use: Reports: Soda Other Caffeine Use: 2/day - Alcohol Use Days Per Week of Alcohol Use: 0 - Recreational Drug Use Recreational Drug Use: No - Living Situation & Occupation Living situation: Reports: , with Spouse Occupation: Disabled H&P Review of Systems - Review of Systems: Review Of Systems: See Below General: Reports: Weakness, Fatigue. Denies: Fever, Chills, Malaise HEENT: Reports: Headaches (chronic). Denies: Ear Pain, Sinus Congestion, Sore Throat Pulmonary: Reports: Shortness of Breath, Wheezing, Pleuritic Chest Pain, Cough. Denies: Sputum, Hemoptysis Cardiovascular: Reports: Dyspnea on Exertion, Lightheadedness, Syncope. Denies : Chest Pain, Palpitations, Orthopnea, PND Gastrointestinal: Reports: No Symptoms. Denies: Abdominal Pain, Nausea, Vomiting Genitourinary: Reports: No Symptoms Musculoskeletal: Reports: No Symptoms Psychiatric: Reports: Depression (hx of ), Anxiety (hx of) Neurological: Reports: Headache (chronic), Syncope (x 2 in ED) Exam - Exam Exam: See Below - Vital Signs Vital Signs: Last Vital Signs Temp 98.1 F 06/12/17 02:06 Pulse 69 06/12/17 02:06 Resp 18 06/12/17 02:06 BP 112/90 06/12/17 02:06 Pulse Ox 94 L 06/12/17 02:06 Weight: 209 lb 6.4 oz - Exam Quality Assessment: Supplemental Oxygen, DVT Prophylaxis General: Alert, Oriented, Cooperative HEENT: Conjunctiva Clear, EOMI, Hearing Intact, Pupils Equal, Pupils Reactive, PERRLA Neck: Supple Lungs: Normal Respiratory Effort, Decreased Breath Sounds, Rhonchi, Wheezing Cardiovascular: Irregular Rhythm GI/Abdominal Exam: Normal Bowel Sounds, Soft, Non-Tender (Male) Exam: Deferred Rectal (Males) Exam: Deferred Back Exam: Normal Inspection Extremities: No Pedal Edema, Normal Capillary Refill Peripheral Pulses: 1+: Dorsalis Pedis (L), Dorsalis Pedis (R) Neuro Extensive - Mental Status: Alert, Oriented x3, Normal Mood/Affect, Normal Cognition, Memory Intact Psychiatric: Alert - Patient Data Result Diagrams: 06/12/17 05:56 06/12/17 05:56 *Q Meaningful Use (ADM) - VTE *Q VTE Criteria *Q: - Stroke *Q Stroke Criteria *Q: - AMI *Q AMI Criteria *Q: - Problem List (1) Syncope SNOMED Code(s): 035414038 ICD Code: R55 - SYNCOPE AND COLLAPSE Status: Acute Priority: High Current Visit: Yes Qualifiers: Syncope type: unspecified Qualified Code(s): R55 - Syncope and collapse (2) Acute and chronic respiratory failure with hypoxia SNOMED Code(s): 84890802 ICD Code: J96.21 - ACUTE AND CHRONIC RESPIRATORY FAILURE WITH HYPOXIA Status: Acute Priority: High Current Visit: Yes (3) COPD exacerbation SNOMED Code(s): 766108281888137 ICD Code: J44.1 - CHRONIC OBSTRUCTIVE PULMONARY DISEASE W (ACUTE) EXACERBATION Status: Acute Priority: High Current Visit: Yes (4) Afib, Atrial fibrillation SNOMED Code(s): 35978376 ICD Code: I48.91 - UNSPECIFIED ATRIAL FIBRILLATION Status: Chronic Priority: High Current Visit: Yes (5) Obstructive sleep apnea on CPAP SNOMED Code(s): 31788041 ICD Code: G47.33 - OBSTRUCTIVE SLEEP APNEA (ADULT) (PEDIATRIC) Status: Chronic Priority: Medium Current Visit: No (6) Elevated blood sugar SNOMED Code(s): 81718893 ICD Code: R73.9 - HYPERGLYCEMIA, UNSPECIFIED Status: Acute Priority: Medium Current Visit: Yes (7) Chronic kidney disease SNOMED Code(s): 024075946 ICD Code: N18.9 - CHRONIC KIDNEY DISEASE, UNSPECIFIED Status: Chronic Priority: Medium Current Visit: Yes Qualifiers: Chronic kidney disease stage: stage 3 (moderate) Qualified Code(s): N18.3 - Chronic kidney disease, stage 3 (moderate) Problem List Initiated/Reviewed/Updated: Yes Orders Last 24hrs: Active Orders 24 hr Category Date Time Status Blood Glucose Check, Bedside [RC] 07,11,16,21 Care 06/12/17 00:49 Active RT Aerosol Therapy [RC] ASDIRECTED Care 06/12/17 00:40 Active RT BiPAP/CPAP [RC] ASDIRECTED Care 06/12/17 00:19 Active ADA Diabetic [[place] [employer] Diet] [DIET Diet 06/12/17 Breakfast Active ] Heart Healthy Diet [DIET] Diet 06/12/17 Breakfast Active BASIC METABOLIC PANEL,BMP [CHEM] Routine Lab 06/12/17 05:56 Received CBC WITH AUTO DIFF [HEME] Routine Lab 06/12/17 05:00 Ordered CRP [C-REACTIVE PROTEIN] [CHEM] Routine Lab 06/12/17 05:56 Received GLYCOSYLATED HEMOGLOBIN,HGBA1C [CHEM] Routine Lab 06/12/17 05:56 Received LACTIC ACID [CHEM] Routine Lab 06/12/17 05:56 Received MAGNESIUM [CHEM] Routine Lab 06/12/17 05:56 Received MYCOPLASMA PNEUMONIAE IGM AB [CHEM] Routine Lab 06/12/17 05:36 Received PRO B-TYPE NATRIUR PEPT,BNPPRO [CHEM] Routine Lab 06/12/17 05:56 Received RESPIRATORY PANEL BY PCR [MREF] Routine Lab 06/12/17 06:31 Ordered STREP PNEUMONIAE ANTIGEN [MREF] Routine Lab 06/12/17 06:31 Ordered TSH [CHEM] Routine Lab 06/12/17 05:36 Received Acetaminophen [Tylenol] Med 06/12/17 00:46 Active 650 mg PO Q6H PRN Albuterol [Proventil Neb Soln] Med 06/12/17 00:40 Active 2.5 mg NEB Q4H PRN Albuterol/Ipratropium [DuoNeb 3.0-0.5 MG/3 ML] Med 06/12/17 06:00 Active 3 ml NEB QIDRT Apixaban [Eliquis] Med 06/12/17 09:00 Active 5 mg PO BID Azithromycin [Zithromax] 500 mg Med 06/12/17 06:45 Active Sodium Chloride 0.9% [Normal Saline] 250 ml IV Q24H ClonazePAM [KlonoPIN] Med 06/12/17 08:00 Active 0.5 mg PO QAM ClonazePAM [KlonoPIN] Med 06/12/17 21:00 Active 1 mg PO BEDTIME Clopidogrel [Plavix] Med 06/12/17 09:00 Active 75 mg PO DAILY Furosemide [Lasix] Med 06/12/17 09:00 Active 40 mg PO DAILY Insulin Aspart [NovoLOG] Med 06/12/17 07:00 Active See Protocol SUBCUT QIDACANDBED Ipratropium Wainwright [Ipratropium Wainwright] Med 06/12/17 06:30 Ordered 1 spray NASBOTH BID Levofloxacin/Dextrose 5%-Water [Levaquin in D5W 750 MG/ Med 06/12/17 01:00 Active 150 ML] 750 mg Premix Bag 1 bag IV Q48H Mirtazapine [Remeron] Med 06/12/17 21:00 Active 30 mg PO BEDTIME Mometasone/Formoterol [Dulera 200-5 MCG] Med 06/12/17 09:00 Active 2 puff IH BID Ondansetron [Zofran] Med 06/12/17 00:48 Active 4 mg IVPUSH Q8H PRN PARoxetine [Paxil] Med 06/12/17 09:00 Active 20 mg PO DAILY Potassium Chloride [Klor-Con M20] Med 06/12/17 07:00 Active 20 meq PO BIDMEALS Ranitidine Med 06/12/17 08:00 Ordered 300 mg PO QAM Simvastatin [Zocor] Med 06/12/17 21:00 Active 20 mg PO BEDTIME Sodium Chloride 0.9% [Normal Saline] 1,000 ml Med 06/12/17 01:00 Active IV ASDIRECTED Tamsulosin [Flomax] Med 06/12/17 09:00 Active 0.4 mg PO BID Temazepam [Restoril] Med 06/12/17 00:47 Active 7.5 mg PO BEDTIME PRN Tiotropium [Spiriva HandiHaler] Med 06/12/17 09:00 Ordered DOSE mcg INH DAILY Verapamil Med 06/12/17 09:00 Ordered 120 mg PO BID methylPREDNISolone Sod Succ [Solu-MEDROL] Med 06/12/17 02:00 Active 125 mg IVPUSH Q6H Resuscitation Status Routine Resus Stat 06/11/17 23:51 Ordered Medication Orders Acetaminophen (Tylenol) 650 mg PO Q6H PRN PRN Reason: Pain/Fever Albuterol (Proventil Neb Soln) 2.5 mg NEB Q4H PRN PRN Reason: shortness of breath Albuterol/Ipratropium (Duoneb 3.0-0.5 Mg/3 Ml) 3 ml NEB QIDRT [facility] Last Admin: 06/12/17 05:29 Dose: 3 ml Apixaban (Eliquis) 5 mg PO BID [facility] Clonazepam (Klonopin) 0.5 mg PO QAM [facility] Clonazepam (Klonopin) 1 mg PO BEDTIME [facility] Clopidogrel Bisulfate (Plavix) 75 mg PO DAILY [facility] Furosemide (Lasix) 40 mg PO DAILY [facility] Sodium Chloride (Normal Saline) 1,000 mls @ 100 mls/hr IV ASDIRECTED [facility] Stop: 06/12/17 07:00 Last Admin: 06/12/17 01:43 Dose: 100 mls/hr Levofloxacin/Dextrose 750 mg/ (Premix) 150 mls @ 100 mls/hr IV Q48H [facility] Last Admin: 06/12/17 02:05 Dose: 100 mls/hr Azithromycin 500 mg/ Sodium (Chloride) 250 mls @ 250 mls/hr IV Q24H [facility] Insulin Aspart (Novolog) 0 unit SUBCUT QIDACANDBED [facility] PRN Reason: Protocol Methylprednisolone Sodium Succinate (Solu-Medrol) 125 mg IVPUSH Q6H [facility] Last Admin: 06/12/17 01:43 Dose: 125 mg Mirtazapine (Remeron) 30 mg PO BEDTIME [facility] Mometasone Furoate/Formoterol Fumar (Dulera 200-5 Mcg) 2 puff IH BID [facility] Non-Formulary Medication (Ipratropium Wainwright [Ipratropium Wainwright]) 1 spray NASBOTH BID [facility] Non-Formulary Medication (Ranitidine) 300 mg PO QAM [facility] Non-Formulary Medication (Verapamil) 120 mg PO BID [facility] Ondansetron HCl (Zofran) 4 mg IVPUSH Q8H PRN PRN Reason: Nausea Paroxetine HCl (Paxil) 20 mg PO DAILY [facility] Potassium Chloride (Klor-Con M20) 20 meq PO BIDMEALS [facility] Simvastatin (Zocor) 20 mg PO BEDTIME [facility] Sodium Chloride (Saline Flush) 10 ml FLUSH ASDIRECTED PRN PRN Reason: Keep Vein Open Last Admin: 06/11/17 20:25 Dose: 10 ml Tamsulosin HCl (Flomax) 0.4 mg PO BID [facility] Temazepam (Restoril) 7.5 mg PO BEDTIME PRN PRN Reason: Insomnia Tiotropium Wainwright (Spiriva Handihaler) mcg INH DAILY [facility] Assessment/Plan Comment:: I/P: Acute: COPD exacerbation with hypoxia--acute on chronic respiratory failure -Supplemental oxygen to keep saturations >90% -RT/Nebs/IS/FV -Solumedrol -IV abx, levaquin, add zithromax for antiinflammatory coverage -Allergic to mucinex/guaifenesin -Infectious workup: Resp viral panel, s.pneumo, mycoplasma ordered Syncope x 2 in ED -Likely related to hypoxia/COPD exacerbation -R/O other causes -Head CT this morning -Echo last obtained on 10/20= EF 55-60% with mild left septal vent hypertrophy and severe biatrial dilation -Carotid US to be obtained -Telemetry---chronic afib, no concerns/calls on tele overnight "Prediabetic"- -will check A1C, sugars have been elevated, suspect this is full DM -CDE -Accuchecks AC/HS with SSI Chronic: CHF- cont home meds- last echo as above, up to date with EF of 55-65% Afib- rate controlled, eliquis, cont home meds CAD/HLD- cont home meds HTN- cont home meds, stable CKD, stage 3, stable- follow renal status with daily labs SWAPNIL- CPAP/BIPAP at HS BPH- cont flomax GERD/PUD- cont zantac Chronic CARDENAS Anxiety/Depression- cont home meds Former smoker- quit in 2017; smoking cessation education Other: GI prophylax- home zantac DVT prophylax- eliquis Daily labs Ambulate QID DC plan: pending workup/eval and progress, likely DC in 3 days. Patient is Full code status
--- NOTE | 2017-06-12 06:53 | CR ---
Chest: Portable view of the chest was obtained. Comparison: Prior chest x-ray of 04/13/17. Heart is enlarged with right-sided cardiac apex. Slightly tortuous thoracic aorta is seen. Lungs are clear. Bony structures are grossly intact. Impression: 1. Stable cardiomegaly with right-sided cardiac apex. 2. Nothing acute is appreciated on portable chest x-ray. Diagnostic code #2
[2017-06-12] MEDS ORDERED: Magnesium Hydroxide 400 MG/5 ML Susp 30 ML Cup PO PRN (07:06)
[2017-06-12] MEDS ORDERED: Bisacodyl 5 MG Tab PO PRN (07:07)
[2017-06-12] MEDS: Azithromycin 500 MG in Sodium Chloride 0.9% 250 ML IV SCH (07:53)
[2017-06-12] MEDS: Potassium Chloride 20 MEQ Tab.ER PO SCH ×2 (07:54→16:27)
--- NOTE | 2017-06-12 08:35 | CT ---
Head CT Technique: Multiple axial sections through the brain were obtained. Intravenous contrast was not utilized. Comparison: Prior head CT study of 06/16/16. Findings: Ventricles along with basal cisterns and sulci over the convexities are mildly prominent. Mild areas of diminished density are noted within the periventricular white matter which are compatible with small vessel ischemic demyelination change. Old lacunar infarct is noted within the left basal ganglia. No other abnormal parenchymal densities are seen. No evidence of intracranial hemorrhage. No midline shift or mass effect is seen. Atherosclerotic calcification is seen within the vertebral vessels and carotid siphon. Bone window settings were reviewed which show no acute calvarial abnormality. Previous sinus surgery is noted. Mild mucosal thickening is seen within the sphenoid sinus. Impression: 1. Incidental sinus findings. 2. Senescent change as noted above. 3. No acute intracranial abnormality is identified on noncontrast head CT exam. Diagnostic code #2
[2017-06-12] MEDS: Furosemide 40 MG Tab PO SCH (09:20)
[2017-06-12] MEDS: Tamsulosin 0.4 MG Cap.ER PO SCH ×2 (09:21→22:12)
[2017-06-12] MEDS: Apixaban 5 MG Tab PO SCH ×2 (09:21→22:12)
[2017-06-12] MEDS: ClonazePAM 0.5 MG Tab PO SCH (09:21)
[2017-06-12] MEDS: Clopidogrel 75 MG Tab PO SCH (09:21)
[2017-06-12] MEDS: Verapamil 120 MG Tab.ER PO SCH ×2 (09:21→22:13)
[2017-06-12] MEDS: PARoxetine 20 MG Tab PO SCH (09:21)
[2017-06-12] MEDS: Ipratropium 0.06% Nasal Spray 15 ML Bottle NASBOTH SCH ×2 (09:21→09:56)
[2017-06-12] MEDS: Famotidine 20 MG Tab PO SCH (09:21)
[2017-06-12] MEDS: Insulin Aspart 100 Units/ML 3 ML Pen SUBCUT SCH ×4 (09:22→22:14)
[2017-06-12] MEDS: Tiotropium Inhaler 18 MCG Inhalation Powder Cap Kit of 5 INH SCH (09:39)
[2017-06-12] MEDS: Formoterol/Mometasone 200-5 MCG 8.8 GM Inhaler IH SCH ×2 (10:01→21:19)
--- NOTE | 2017-06-12 12:13 | US ---
Carotid ultrasound: Duplex and color flow imaging was obtained of the carotid arteries. Comparison: Previous carotid ultrasound exam of 04/20/13. No plaque is identified . The left internal carotid artery is tortuous. Right side: CCA has a peak systolic velocity of 0.56 m/sec. ICA has a peak systolic velocity of 0.43 m/sec and peak end-diastolic velocity of 0.18 m/sec. ECA has a peak systolic velocity of 0.68 m/sec. ICA/CCA ratio is 0.77. Vertebral artery has a peak systolic velocity of 0.28. Left side: CCA has a peak systolic velocity of 0.53 m/sec. ICA has a peak systolic velocity of 0.45 m/sec and peak end-diastolic velocity of 0.19 m/sec. ECA has a peak systolic velocity of 0.49 m/sec. ICA/CCA ratio is 0.85. Vertebral artery has a peak systolic velocity of 0.35. Impression: 1. Tortuous left internal carotid artery. 2. Carotid ultrasound is otherwise unremarkable. No significant change from previous study is seen. Diagnostic code #2
[2017-06-12] MEDS: Simvastatin 20 MG Tab PO SCH (22:12)
[2017-06-12] MEDS: ClonazePAM 1 MG Tab PO SCH (22:13)
[2017-06-12] MEDS: Mirtazapine 30 MG Tab PO SCH (22:13)
[2017-06-13] MEDS: Levofloxacin/Dextrose 5%-Water 750 MG in Premix Bag 1 BAG IV SCH (01:13)
[2017-06-13] MEDS: methylPREDNISolone Sodium Succinate 125 MG/2 ML SDV IVPUSH SCH ×4 (01:15→21:52)
[2017-06-13] MEDS: Azithromycin 500 MG in Sodium Chloride 0.9% 250 ML IV SCH (06:30)
[2017-06-13] MEDS: Potassium Chloride 20 MEQ Tab.ER PO SCH ×2 (06:31→17:29)
[2017-06-13] MEDS: Albuterol/Ipratropium 3.0-0.5 MG/3 ML Neb Soln NEB SCH ×4 (06:45→20:25)
[2017-06-13] MEDS: Insulin Aspart 100 Units/ML 3 ML Pen SUBCUT SCH ×4 (08:04→21:58)
[2017-06-13] MEDS: Ipratropium 0.06% Nasal Spray 15 ML Bottle NASBOTH SCH (08:05)
[2017-06-13] MEDS: Furosemide 40 MG Tab PO SCH (08:06)
[2017-06-13] MEDS: Verapamil 120 MG Tab.ER PO SCH ×2 (08:06→21:53)
[2017-06-13] MEDS: PARoxetine 20 MG Tab PO SCH (08:06)
[2017-06-13] MEDS: Apixaban 5 MG Tab PO SCH ×2 (08:06→21:53)
[2017-06-13] MEDS: Tamsulosin 0.4 MG Cap.ER PO SCH ×2 (08:06→21:54)
[2017-06-13] MEDS: Famotidine 20 MG Tab PO SCH (08:06)
[2017-06-13] MEDS: Clopidogrel 75 MG Tab PO SCH (08:06)
[2017-06-13] MEDS: ClonazePAM 0.5 MG Tab PO SCH (08:06)
[2017-06-13] MEDS: Formoterol/Mometasone 200-5 MCG 8.8 GM Inhaler IH SCH ×2 (10:20→20:24)
[2017-06-13] MEDS: Tiotropium Inhaler 18 MCG Inhalation Powder Cap Kit of 5 INH SCH (10:20)
--- NOTE | 2017-06-13 19:12 | PCM.PN ---
- General Info Date of Service: 06/13/17 Functional Status: Reports: Tolerating Diet, Ambulating, Urinating - Review of Systems General: Reports: No Symptoms HEENT: Reports: No Symptoms Pulmonary: Reports: No Symptoms Cardiovascular: Reports: No Symptoms Gastrointestinal: Reports: No Symptoms Genitourinary: Reports: No Symptoms Musculoskeletal: Reports: No Symptoms Skin: Reports: No Symptoms Neurological: Reports: No Symptoms Psychiatric: Reports: No Symptoms - Patient Data Vitals - Most Recent: Last Vital Signs Temp 36.6 C 06/13/17 11:46 Pulse 83 06/13/17 17:31 Resp 16 06/13/17 16:04 BP 95/69 06/13/17 16:11 Pulse Ox 91 L 06/13/17 17:31 Weight - Most Recent: 95.028 kg I&O - Last 24 Hours: Intake & Output 06/13/17 06/13/17 06/13/17 06:59 14:59 22:59 Intake Total 900 950 Balance 900 950 Lab Results Last 24 Hours: Laboratory Results - last 24 hr 06/12/17 06/13/17 06/13/17 Range/Units 21:19 06:21 06:56 WBC 11.67 H (4.23-9.07) K/mm3 RBC 4.43 L (4.63-6.08) M/mm3 Hgb 14.0 (13.7-17.5) gm/L Hct 43.2 (40.1-51.0) % MCV 97.5 H (79.0-92.2) fl MCH 31.6 (25.7-32.2) pg MCHC 32.4 (32.2-35.5) g/dl RDW Std Deviation 51.4 H (35.1-43.9) fL Plt Count 164 (163-337) K/mm3 MPV 10.0 (9.4-12.3) fl Neut % (Auto) 91.4 H (34.0-67.9) % Lymph % (Auto) 5.4 L (21.8-53.1) % [place] % (Auto) 2.9 L (5.3-12.2) % Eos % (Auto) 0 L (0.8-7.0) Baso % (Auto) 0.0 L (0.1-1.2) % Neut # (Auto) 10.67 H (1.78-5.38) K/mm3 Lymph # (Auto) 0.63 L (1.32-3.57) K/mm3 [place] # (Auto) 0.34 (0.30-0.82) K/mm3 Eos # (Auto) 0.00 L (0.04-0.54) K/mm3 Baso # (Auto) 0.00 L (0.01-0.08) K/mm3 Manual Slide Review Abnormal smear Sodium (136-145) mEq/L Potassium (3.5-5.1) mEq/L Chloride (98-107) mEq/L Carbon Dioxide (21-32) mEq/L Anion Gap (5-15) BUN (7-18) mg/dL Creatinine (0.7-1.3) mg/dL Est Cr Clr Drug Dosing mL/min Estimated GFR (MDRD) (>60) mL/min BUN/Creatinine Ratio (14-18) Glucose (80-115) mg/dL POC Glucose 252 H 236 H (80-115) mg/dL Calcium (8.5-10.1) mg/dL Magnesium (1.8-2.4) mg/dl C-Reactive Protein (<1.0) mg/dL 06/13/17 06/13/17 06/13/17 Range/Units 06:56 06:56 10:27 WBC (4.23-9.07) K/mm3 RBC (4.63-6.08) M/mm3 Hgb (13.7-17.5) gm/L Hct (40.1-51.0) % MCV (79.0-92.2) fl MCH (25.7-32.2) pg MCHC (32.2-35.5) g/dl RDW Std Deviation (35.1-43.9) fL Plt Count (163-337) K/mm3 MPV (9.4-12.3) fl Neut % (Auto) (34.0-67.9) % Lymph % (Auto) (21.8-53.1) % [place] % (Auto) (5.3-12.2) % Eos % (Auto) (0.8-7.0) Baso % (Auto) (0.1-1.2) % Neut # (Auto) (1.78-5.38) K/mm3 Lymph # (Auto) (1.32-3.57) K/mm3 [place] # (Auto) (0.30-0.82) K/mm3 Eos # (Auto) (0.04-0.54) K/mm3 Baso # (Auto) (0.01-0.08) K/mm3 Manual Slide Review Sodium 138 (136-145) mEq/L Potassium 4.5 (3.5-5.1) mEq/L Chloride 105 (98-107) mEq/L Carbon Dioxide 25 (21-32) mEq/L Anion Gap 12.5 (5-15) BUN 27 H (7-18) mg/dL Creatinine 1.5 H (0.7-1.3) mg/dL Est Cr Clr Drug Dosing 47.13 mL/min Estimated GFR (MDRD) 47 (>60) mL/min BUN/Creatinine Ratio 18.0 (14-18) Glucose 210 H (80-115) mg/dL POC Glucose 172 H (80-115) mg/dL Calcium 9.1 (8.5-10.1) mg/dL Magnesium 2.2 (1.8-2.4) mg/dl C-Reactive Protein 0.4 (<1.0) mg/dL 06/13/17 Range/Units 16:56 WBC (4.23-9.07) K/mm3 RBC (4.63-6.08) M/mm3 Hgb (13.7-17.5) gm/L Hct (40.1-51.0) % MCV (79.0-92.2) fl MCH (25.7-32.2) pg MCHC (32.2-35.5) g/dl RDW Std Deviation (35.1-43.9) fL Plt Count (163-337) K/mm3 MPV (9.4-12.3) fl Neut % (Auto) (34.0-67.9) % Lymph % (Auto) (21.8-53.1) % [place] % (Auto) (5.3-12.2) % Eos % (Auto) (0.8-7.0) Baso % (Auto) (0.1-1.2) % Neut # (Auto) (1.78-5.38) K/mm3 Lymph # (Auto) (1.32-3.57) K/mm3 [place] # (Auto) (0.30-0.82) K/mm3 Eos # (Auto) (0.04-0.54) K/mm3 Baso # (Auto) (0.01-0.08) K/mm3 Manual Slide Review Sodium (136-145) mEq/L Potassium (3.5-5.1) mEq/L Chloride (98-107) mEq/L Carbon Dioxide (21-32) mEq/L Anion Gap (5-15) BUN (7-18) mg/dL Creatinine (0.7-1.3) mg/dL Est Cr Clr Drug Dosing mL/min Estimated GFR (MDRD) (>60) mL/min BUN/Creatinine Ratio (14-18) Glucose (80-115) mg/dL POC Glucose 385 H (80-115) mg/dL Calcium (8.5-10.1) mg/dL Magnesium (1.8-2.4) mg/dl C-Reactive Protein (<1.0) mg/dL Robert Results Last 24 Hours: Microbiology 06/12/17 11:15 Gram Stain - Final Sputum - Expectorated Sputum Culture - Preliminary 06/12/17 07:10 Respiratory Virus Panel (PCR) (ROBERT) - Final Nasopharyngeal Swab 06/12/17 08:30 Streptococcus pneumoniae Antigen (M - Final Urine Med Orders - Current: Current Medications Albuterol (Proventil Neb Soln) 2.5 mg NEB Q4H PRN PRN Reason: shortness of breath Albuterol/Ipratropium (Duoneb 3.0-0.5 Mg/3 Ml) 3 ml NEB QIDRT [facility] Last Admin: 06/13/17 17:12 Dose: 3 ml Apixaban (Eliquis) 5 mg PO BID [facility] Last Admin: 06/13/17 08:06 Dose: 5 mg Bisacodyl (Dulcolax) 5 mg PO DAILY PRN PRN Reason: Constipation Clonazepam (Klonopin) 0.5 mg PO QAM [facility] Last Admin: 06/13/17 08:06 Dose: 0.5 mg Clonazepam (Klonopin) 1 mg PO BEDTIME [facility] Last Admin: 06/12/17 22:13 Dose: 1 mg Clopidogrel Bisulfate (Plavix) 75 mg PO DAILY [facility] Last Admin: 06/13/17 08:06 Dose: 75 mg Famotidine (Pepcid) 20 mg PO QAM [facility] Last Admin: 06/13/17 08:06 Dose: 20 mg Furosemide (Lasix) 40 mg PO DAILY [facility] Last Admin: 06/13/17 08:06 Dose: 40 mg Azithromycin 500 mg/ Sodium (Chloride) 250 mls @ 250 mls/hr IV Q24H [facility] Last Admin: 06/13/17 06:30 Dose: 250 mls/hr Levofloxacin/Dextrose 750 mg/ (Premix) 150 mls @ 100 mls/hr IV Q24H [facility] Last Admin: 06/13/17 01:13 Dose: 100 mls/hr Insulin Aspart (Novolog) 0 unit SUBCUT QIDACANDBED [facility] PRN Reason: Protocol Last Admin: 06/13/17 17:29 Dose: 5 units Ipratropium [place] (Atrovent 0.06% Nasal [place]) 0 ml NASBOTH BID [facility] Last Admin: 06/13/17 08:05 Dose: 1 spray Magnesium Hydroxide (Milk Of Magnesia) 30 ml PO BID PRN PRN Reason: Constipation Methylprednisolone Sodium Succinate (Solu-Medrol) 125 mg IVPUSH Q6H [facility] Last Admin: 06/13/17 14:18 Dose: 125 mg Mirtazapine (Remeron) 30 mg PO BEDTIME [facility] Last Admin: 06/12/17 22:13 Dose: 30 mg Mometasone Furoate/Formoterol Fumar (Dulera 200-5 Mcg) 2 puff IH BID [facility] Last Admin: 06/13/17 10:20 Dose: 2 puff Ondansetron HCl (Zofran) 4 mg IVPUSH Q8H PRN PRN Reason: Nausea Paroxetine HCl (Paxil) 20 mg PO DAILY [facility] Last Admin: 06/13/17 08:06 Dose: 20 mg Potassium Chloride (Klor-Con M20) 20 meq PO BIDMEALS [facility] Last Admin: 06/13/17 17:29 Dose: 20 meq Simvastatin (Zocor) 20 mg PO BEDTIME [facility] Last Admin: 06/12/17 22:12 Dose: 20 mg Sodium Chloride (Saline Flush) 10 ml FLUSH ASDIRECTED PRN PRN Reason: Keep Vein Open Last Admin: 06/11/17 20:25 Dose: 10 ml Tamsulosin HCl (Flomax) 0.4 mg PO BID [facility] Last Admin: 06/13/17 08:06 Dose: 0.4 mg Temazepam (Restoril) 7.5 mg PO BEDTIME PRN PRN Reason: Insomnia Tiotropium [place] (Spiriva Handihaler) 18 mcg INH DAILY [facility] Last Admin: 06/13/17 10:20 Dose: 1 cap Verapamil HCl (Calan Sr) 120 mg PO BID [facility] Last Admin: 06/13/17 08:06 Dose: 120 mg Discontinued Medications Acetaminophen (Tylenol) 650 mg PO Q6H PRN PRN Reason: Pain/Fever Albuterol/Ipratropium (Duoneb 3.0-0.5 Mg/3 Ml) 3 ml NEB ONETIME ONE Stop: 06/11/17 20:19 Last Admin: 06/11/17 20:24 Dose: 3 ml Albuterol/Ipratropium (Duoneb 3.0-0.5 Mg/3 Ml) 3 ml NEB ONETIME ONE Stop: 06/11/17 21:34 Last Admin: 06/11/17 21:47 Dose: 3 ml Enoxaparin Sodium (Lovenox) 30 mg SUBCUT ONETIME ONE Stop: 06/12/17 01:01 Last Admin: 06/12/17 02:07 Dose: 30 mg Sodium Chloride (Normal Saline) 1,000 mls @ 100 mls/hr IV ASDIRECTED [facility] Stop: 06/12/17 07:00 Last Admin: 06/12/17 01:43 Dose: 100 mls/hr Levofloxacin/Dextrose 750 mg/ (Premix) 150 mls @ 100 mls/hr IV Q48H [facility] Last Admin: 06/12/17 02:05 Dose: 100 mls/hr Lorazepam (Ativan) 0.5 mg IVPUSH ONETIME ONE Stop: 06/11/17 21:34 Last Admin: 06/11/17 21:42 Dose: 0.5 mg Methylprednisolone Sodium Succinate (Solu-Medrol) 125 mg IVPUSH ONETIME ONE Stop: 06/11/17 20:20 Last Admin: 06/11/17 20:24 Dose: 125 mg - Exam Quality Assessment: Supplemental Oxygen, DVT Prophylaxis General: Alert, Oriented, Cooperative, No Acute Distress HEENT: Pupils Equal, Pupils Reactive, EOMI Neck: Supple, Trachea Midline, No JVD Lungs: Normal Respiratory Effort Cardiovascular: Regular Rate, Regular Rhythm GI/Abdominal Exam: Normal Bowel Sounds, Soft, Non-Tender, No Organomegaly, No Distention (Male) Exam: Deferred Back Exam: Normal Inspection Extremities: Normal Inspection Skin: Warm Neurological: No New Focal Deficit Psy/Mental Status: Alert, Normal Affect, Normal Mood - Problem List Review Problem List Initiated/Reviewed/Updated: Yes - My Orders Last 24 Hours: My Active Orders 06/13/17 02:00 Levofloxacin/Dextrose 5%-Water [Levaquin in D5W 750 MG/150 ML] 750 mg Premix Bag 1 bag IV Q24H 06/14/17 05:00 MG [MAGNESIUM] [CHEM] DAILY 06/15/17 05:00 MG [MAGNESIUM] [CHEM] DAILY 06/16/17 05:00 MG [MAGNESIUM] [CHEM] DAILY - Plan Plan:: I/P: Acute: COPD exacerbation with hypoxia--acute on chronic respiratory failure -Supplemental oxygen to keep saturations >90% -RT/Nebs/IS/FV -Solumedrol -IV abx, levaquin, add zithromax for antiinflammatory coverage -Allergic to mucinex/guaifenesin -Infectious workup: Resp viral panel, s.pneumo, mycoplasma ordered Syncope x 2 in ED -Likely related to hypoxia/COPD exacerbation -R/O other causes -Head CT this morning -Echo last obtained on 10/20= EF 55-60% with mild left septal vent hypertrophy and severe biatrial dilation -Carotid US to be obtained -Telemetry---chronic afib, no concerns/calls on tele overnight "Prediabetic"- -will check A1C, sugars have been elevated, suspect this is full DM -CDE -Accuchecks AC/HS with SSI Chronic: CHF- cont home meds- last echo as above, up to date with EF of 55-65% Afib- rate controlled, eliquis, cont home meds CAD/HLD- cont home meds HTN- cont home meds, stable CKD, stage 3, stable- follow renal status with daily labs SWAPNIL- CPAP/BIPAP at HS BPH- cont flomax GERD/PUD- cont zantac Chronic CARDENAS Anxiety/Depression- cont home meds Former smoker- quit in 2017; smoking cessation education Other: GI prophylax- home zantac DVT prophylax- eliquis Daily labs Ambulate QID DC plan: pending workup/eval and progress, likely DC in 3 days. Patient is Full code status
[2017-06-13] MEDS: ClonazePAM 1 MG Tab PO SCH (21:53)
[2017-06-13] MEDS: Simvastatin 20 MG Tab PO SCH (21:54)
[2017-06-13] MEDS: Mirtazapine 30 MG Tab PO SCH (21:54)
[2017-06-14] MEDS: methylPREDNISolone Sodium Succinate 125 MG/2 ML SDV IVPUSH SCH ×4 (01:46→20:56)
[2017-06-14] MEDS: Levofloxacin/Dextrose 5%-Water 750 MG in Premix Bag 1 BAG IV SCH (01:46)
[2017-06-14] MEDS: Potassium Chloride 20 MEQ Tab.ER PO SCH ×2 (06:21→18:21)
[2017-06-14] MEDS: Azithromycin 500 MG in Sodium Chloride 0.9% 250 ML IV SCH (06:21)
[2017-06-14] MEDS: Albuterol/Ipratropium 3.0-0.5 MG/3 ML Neb Soln NEB SCH ×4 (06:53→20:43)
[2017-06-14] MEDS: Apixaban 5 MG Tab PO SCH ×2 (08:55→20:55)
[2017-06-14] MEDS: Verapamil 120 MG Tab.ER PO SCH ×2 (08:56→20:55)
[2017-06-14] MEDS: ClonazePAM 0.5 MG Tab PO SCH (08:57)
[2017-06-14] MEDS: Famotidine 20 MG Tab PO SCH (08:57)
[2017-06-14] MEDS: Clopidogrel 75 MG Tab PO SCH (08:58)
[2017-06-14] MEDS: PARoxetine 20 MG Tab PO SCH (08:58)
[2017-06-14] MEDS: Furosemide 40 MG Tab PO SCH (08:58)
[2017-06-14] MEDS: Tamsulosin 0.4 MG Cap.ER PO SCH ×2 (08:59→20:55)
[2017-06-14] MEDS: Insulin Aspart 100 Units/ML 3 ML Pen SUBCUT SCH ×4 (09:00→21:01)
[2017-06-14] MEDS: Formoterol/Mometasone 200-5 MCG 8.8 GM Inhaler IH SCH ×2 (09:10→20:43)
[2017-06-14] MEDS: Tiotropium Inhaler 18 MCG Inhalation Powder Cap Kit of 5 INH SCH (09:10)
[2017-06-14] MEDS: Ipratropium 0.06% Nasal Spray 15 ML Bottle NASBOTH SCH (11:23)
--- NOTE | 2017-06-14 16:10 | PCM.PN ---
- General Info Date of Service: 06/14/17 Functional Status: Reports: Tolerating Diet, Ambulating, Urinating - Review of Systems General: Reports: Weakness HEENT: Reports: No Symptoms Pulmonary: Reports: No Symptoms Cardiovascular: Reports: No Symptoms Gastrointestinal: Reports: No Symptoms Genitourinary: Reports: No Symptoms Musculoskeletal: Reports: No Symptoms Skin: Reports: No Symptoms Neurological: Reports: No Symptoms Psychiatric: Reports: No Symptoms - Patient Data Vitals - Most Recent: Last Vital Signs Temp 36.8 C 06/14/17 15:19 Pulse 92 06/14/17 15:19 Resp 20 06/14/17 15:19 BP 111/71 06/14/17 15:19 Pulse Ox 99 06/14/17 15:19 Weight - Most Recent: 95.572 kg I&O - Last 24 Hours: Intake & Output 06/14/17 06/14/17 06/14/17 06:59 14:59 22:59 Intake Total 240 750 Balance 240 750 Lab Results Last 24 Hours: Laboratory Results - last 24 hr 06/13/17 06/13/17 06/14/17 Range/Units 16:56 20:14 06:30 WBC (4.23-9.07) K/mm3 RBC (4.63-6.08) M/mm3 Hgb (13.7-17.5) gm/L Hct (40.1-51.0) % MCV (79.0-92.2) fl MCH (25.7-32.2) pg MCHC (32.2-35.5) g/dl RDW Std Deviation (35.1-43.9) fL Plt Count (163-337) K/mm3 MPV (9.4-12.3) fl Neut % (Auto) (34.0-67.9) % Lymph % (Auto) (21.8-53.1) % [place] % (Auto) (5.3-12.2) % Eos % (Auto) (0.8-7.0) Baso % (Auto) (0.1-1.2) % Neut # (Auto) (1.78-5.38) K/mm3 Lymph # (Auto) (1.32-3.57) K/mm3 [place] # (Auto) (0.30-0.82) K/mm3 Eos # (Auto) (0.04-0.54) K/mm3 Baso # (Auto) (0.01-0.08) K/mm3 Manual Slide Review Sodium (136-145) mEq/L Potassium (3.5-5.1) mEq/L Chloride (98-107) mEq/L Carbon Dioxide (21-32) mEq/L Anion Gap (5-15) BUN (7-18) mg/dL Creatinine (0.7-1.3) mg/dL Est Cr Clr Drug Dosing mL/min Estimated GFR (MDRD) (>60) mL/min BUN/Creatinine Ratio (14-18) Glucose (80-115) mg/dL POC Glucose 385 H 291 H 280 H (80-115) mg/dL Calcium (8.5-10.1) mg/dL Magnesium (1.8-2.4) mg/dl C-Reactive Protein (<1.0) mg/dL 06/14/17 06/14/17 06/14/17 Range/Units 06:50 06:50 06:50 WBC 12.65 H (4.23-9.07) K/mm3 RBC 4.33 L (4.63-6.08) M/mm3 Hgb 13.6 L (13.7-17.5) gm/L Hct 42.5 (40.1-51.0) % MCV 98.2 H (79.0-92.2) fl MCH 31.4 (25.7-32.2) pg MCHC 32.0 L (32.2-35.5) g/dl RDW Std Deviation 51.8 H (35.1-43.9) fL Plt Count 180 (163-337) K/mm3 MPV 10.0 (9.4-12.3) fl Neut % (Auto) 92.4 H (34.0-67.9) % Lymph % (Auto) 4.6 L (21.8-53.1) % [place] % (Auto) 2.7 L (5.3-12.2) % Eos % (Auto) 0 L (0.8-7.0) Baso % (Auto) 0.0 L (0.1-1.2) % Neut # (Auto) 11.69 H (1.78-5.38) K/mm3 Lymph # (Auto) 0.58 L (1.32-3.57) K/mm3 [place] # (Auto) 0.34 (0.30-0.82) K/mm3 Eos # (Auto) 0.00 L (0.04-0.54) K/mm3 Baso # (Auto) 0.00 L (0.01-0.08) K/mm3 Manual Slide Review Abnormal smear Sodium 140 (136-145) mEq/L Potassium 4.5 (3.5-5.1) mEq/L Chloride 105 (98-107) mEq/L Carbon Dioxide 28 (21-32) mEq/L Anion Gap 11.5 (5-15) BUN 29 H (7-18) mg/dL Creatinine 1.4 H (0.7-1.3) mg/dL Est Cr Clr Drug Dosing 50.50 mL/min Estimated GFR (MDRD) 50 (>60) mL/min BUN/Creatinine Ratio 20.7 H (14-18) Glucose 277 H (80-115) mg/dL POC Glucose (80-115) mg/dL Calcium 8.9 (8.5-10.1) mg/dL Magnesium 2.1 (1.8-2.4) mg/dl C-Reactive Protein < 0.2 (<1.0) mg/dL 06/14/17 Range/Units 11:14 WBC (4.23-9.07) K/mm3 RBC (4.63-6.08) M/mm3 Hgb (13.7-17.5) gm/L Hct (40.1-51.0) % MCV (79.0-92.2) fl MCH (25.7-32.2) pg MCHC (32.2-35.5) g/dl RDW Std Deviation (35.1-43.9) fL Plt Count (163-337) K/mm3 MPV (9.4-12.3) fl Neut % (Auto) (34.0-67.9) % Lymph % (Auto) (21.8-53.1) % [place] % (Auto) (5.3-12.2) % Eos % (Auto) (0.8-7.0) Baso % (Auto) (0.1-1.2) % Neut # (Auto) (1.78-5.38) K/mm3 Lymph # (Auto) (1.32-3.57) K/mm3 [place] # (Auto) (0.30-0.82) K/mm3 Eos # (Auto) (0.04-0.54) K/mm3 Baso # (Auto) (0.01-0.08) K/mm3 Manual Slide Review Sodium (136-145) mEq/L Potassium (3.5-5.1) mEq/L Chloride (98-107) mEq/L Carbon Dioxide (21-32) mEq/L Anion Gap (5-15) BUN (7-18) mg/dL Creatinine (0.7-1.3) mg/dL Est Cr Clr Drug Dosing mL/min Estimated GFR (MDRD) (>60) mL/min BUN/Creatinine Ratio (14-18) Glucose (80-115) mg/dL POC Glucose 271 H (80-115) mg/dL Calcium (8.5-10.1) mg/dL Magnesium (1.8-2.4) mg/dl C-Reactive Protein (<1.0) mg/dL Robert Results Last 24 Hours: Microbiology 06/12/17 11:15 Gram Stain - Final Sputum - Expectorated Sputum Culture - Preliminary Med Orders - Current: Current Medications Albuterol (Proventil Neb Soln) 2.5 mg NEB Q4H PRN PRN Reason: shortness of breath Albuterol/Ipratropium (Duoneb 3.0-0.5 Mg/3 Ml) 3 ml NEB QIDRT [facility] Last Admin: 06/14/17 09:10 Dose: 3 ml Apixaban (Eliquis) 5 mg PO BID [facility] Last Admin: 06/14/17 08:55 Dose: 5 mg Bisacodyl (Dulcolax) 5 mg PO DAILY PRN PRN Reason: Constipation Clonazepam (Klonopin) 0.5 mg PO QAM [facility] Last Admin: 06/14/17 08:57 Dose: 0.5 mg Clonazepam (Klonopin) 1 mg PO BEDTIME [facility] Last Admin: 06/13/17 21:53 Dose: 1 mg Clopidogrel Bisulfate (Plavix) 75 mg PO DAILY [facility] Last Admin: 06/14/17 08:58 Dose: 75 mg Famotidine (Pepcid) 20 mg PO QAM [facility] Last Admin: 06/14/17 08:57 Dose: 20 mg Furosemide (Lasix) 40 mg PO DAILY [facility] Last Admin: 06/14/17 08:58 Dose: 40 mg Azithromycin 500 mg/ Sodium (Chloride) 250 mls @ 250 mls/hr IV Q24H [facility] Last Admin: 06/14/17 06:21 Dose: 250 mls/hr Levofloxacin/Dextrose 750 mg/ (Premix) 150 mls @ 100 mls/hr IV Q24H [facility] Last Admin: 06/14/17 01:46 Dose: 100 mls/hr Insulin Aspart (Novolog) 0 unit SUBCUT QIDACANDBED [facility] PRN Reason: Protocol Last Admin: 06/14/17 11:17 Dose: 3 units Ipratropium [place] (Atrovent 0.06% Nasal [place]) 0 ml NASBOTH BID [facility] Last Admin: 06/14/17 11:23 Dose: 1 spray Magnesium Hydroxide (Milk Of Magnesia) 30 ml PO BID PRN PRN Reason: Constipation Methylprednisolone Sodium Succinate (Solu-Medrol) 125 mg IVPUSH Q6H [facility] Last Admin: 06/14/17 14:30 Dose: 125 mg Mirtazapine (Remeron) 30 mg PO BEDTIME [facility] Last Admin: 06/13/17 21:54 Dose: 30 mg Mometasone Furoate/Formoterol Fumar (Dulera 200-5 Mcg) 2 puff IH BID [facility] Last Admin: 06/14/17 09:10 Dose: 2 puff Ondansetron HCl (Zofran) 4 mg IVPUSH Q8H PRN PRN Reason: Nausea Paroxetine HCl (Paxil) 20 mg PO DAILY [facility] Last Admin: 06/14/17 08:58 Dose: 20 mg Potassium Chloride (Klor-Con M20) 20 meq PO BIDMEALS [facility] Last Admin: 06/14/17 06:21 Dose: 20 meq Simvastatin (Zocor) 20 mg PO BEDTIME [facility] Last Admin: 06/13/17 21:54 Dose: 20 mg Sodium Chloride (Saline Flush) 10 ml FLUSH ASDIRECTED PRN PRN Reason: Keep Vein Open Last Admin: 06/11/17 20:25 Dose: 10 ml Tamsulosin HCl (Flomax) 0.4 mg PO BID [facility] Last Admin: 06/14/17 08:59 Dose: 0.4 mg Temazepam (Restoril) 7.5 mg PO BEDTIME PRN PRN Reason: Insomnia Tiotropium [place] (Spiriva Handihaler) 18 mcg INH DAILY [facility] Last Admin: 06/14/17 09:10 Dose: 1 cap Verapamil HCl (Calan Sr) 120 mg PO BID [facility] Last Admin: 06/14/17 08:56 Dose: 120 mg Discontinued Medications Acetaminophen (Tylenol) 650 mg PO Q6H PRN PRN Reason: Pain/Fever Albuterol/Ipratropium (Duoneb 3.0-0.5 Mg/3 Ml) 3 ml NEB ONETIME ONE Stop: 06/11/17 20:19 Last Admin: 06/11/17 20:24 Dose: 3 ml Albuterol/Ipratropium (Duoneb 3.0-0.5 Mg/3 Ml) 3 ml NEB ONETIME ONE Stop: 06/11/17 21:34 Last Admin: 06/11/17 21:47 Dose: 3 ml Enoxaparin Sodium (Lovenox) 30 mg SUBCUT ONETIME ONE Stop: 06/12/17 01:01 Last Admin: 06/12/17 02:07 Dose: 30 mg Sodium Chloride (Normal Saline) 1,000 mls @ 100 mls/hr IV ASDIRECTED [facility] Stop: 06/12/17 07:00 Last Admin: 06/12/17 01:43 Dose: 100 mls/hr Levofloxacin/Dextrose 750 mg/ (Premix) 150 mls @ 100 mls/hr IV Q48H [facility] Last Admin: 06/12/17 02:05 Dose: 100 mls/hr Lorazepam (Ativan) 0.5 mg IVPUSH ONETIME ONE Stop: 06/11/17 21:34 Last Admin: 06/11/17 21:42 Dose: 0.5 mg Methylprednisolone Sodium Succinate (Solu-Medrol) 125 mg IVPUSH ONETIME ONE Stop: 06/11/17 20:20 Last Admin: 06/11/17 20:24 Dose: 125 mg - Exam Quality Assessment: Supplemental Oxygen, DVT Prophylaxis General: Alert, Oriented, Cooperative, No Acute Distress HEENT: Pupils Equal, Pupils Reactive, EOMI Neck: Supple, Trachea Midline Lungs: Normal Respiratory Effort, Decreased Breath Sounds Cardiovascular: Regular Rate, Regular Rhythm GI/Abdominal Exam: Normal Bowel Sounds, Soft, Non-Tender, No Organomegaly, No Distention (Male) Exam: Deferred Back Exam: Normal Inspection Extremities: Normal Inspection Skin: Warm Neurological: No New Focal Deficit, Normal Gait, Normal Speech Psy/Mental Status: Alert, Normal Affect, Normal Mood - Problem List Review Problem List Initiated/Reviewed/Updated: Yes - My Orders Last 24 Hours: My Active Orders 06/15/17 05:00 MG [MAGNESIUM] [CHEM] DAILY 06/16/17 05:00 MG [MAGNESIUM] [CHEM] DAILY - Plan Plan:: I/P: Acute: COPD exacerbation with hypoxia--acute on chronic respiratory failure -Supplemental oxygen to keep saturations >90% -RT/Nebs/IS/FV -Solumedrol -IV abx, levaquin, add zithromax for anti-inflammatory coverage -Allergic to mucinex/guaifenesin -Infectious workup: Resp viral panel, s.pneumo, mycoplasma--->positive, continue resp isolation Syncope x 2 in ED -Likely related to hypoxia/COPD exacerbation -R/O other causes -Head CT this morning -Echo last obtained on 10/20= EF 55-60% with mild left septal vent hypertrophy and severe biatrial dilation -Carotid US to be obtained -Telemetry---chronic afib, no concerns/calls on tele overnight "Prediabetic"- -will check A1C, sugars have been elevated, suspect this is full DM -CDE -Accuchecks AC/HS with SSI Chronic: CHF- cont home meds- last echo as above, up to date with EF of 55-65% Afib- rate controlled, eliquis, cont home meds CAD/HLD- cont home meds HTN- cont home meds, stable CKD, stage 3, stable- follow renal status with daily labs SWAPNIL- CPAP/BIPAP at HS BPH- cont flomax GERD/PUD- cont zantac Chronic CARDENAS Anxiety/Depression- cont home meds Former smoker- quit in 2017; smoking cessation education Other: GI prophylax- home zantac DVT prophylax- eliquis Daily labs Ambulate Qid LOS>96 HOURS FOR MYCOPLASMA TREATMENT; PATIENT'S FAMILY WERE INSTRUCTED TO WEAR RESPIRATORY MASK IN HIS ROOM, SEVERAL FAMIL MEMBERS INCLUDING CHILDREN WERE UNPROTECTED. PATIENT'S FAMILY HAVE NOT BEEN RESPECTFUL OF THE DIETARY ORDER BRINGING IN ANTOLIN 'S, ETC. HE WAS INSTRUCTED/EDUCATED REGARDING HEALTHY FOOD CHOICES DURING HIS LOS. Patient is Full code status
[2017-06-14] MEDS ORDERED: Insulin Detemir 100 Units/ML 3 ML Pen SUBCUT ONE ×2 (18:05→18:13)
[2017-06-14] MEDS: Simvastatin 20 MG Tab PO SCH (20:55)
[2017-06-14] MEDS: Mirtazapine 30 MG Tab PO SCH (20:56)
[2017-06-14] MEDS: ClonazePAM 1 MG Tab PO SCH (20:56)
[2017-06-15] MEDS: methylPREDNISolone Sodium Succinate 125 MG/2 ML SDV IVPUSH SCH ×2 (01:48→08:27)
[2017-06-15] MEDS: Levofloxacin/Dextrose 5%-Water 750 MG in Premix Bag 1 BAG IV SCH (01:48)
[2017-06-15] MEDS: Azithromycin 500 MG in Sodium Chloride 0.9% 250 ML IV SCH (05:48)
[2017-06-15] MEDS: Potassium Chloride 20 MEQ Tab.ER PO SCH (06:38)
[2017-06-15] MEDS: Albuterol/Ipratropium 3.0-0.5 MG/3 ML Neb Soln NEB SCH ×2 (06:52→09:37)
[2017-06-15 07:51] VITALS: BP 118/78
--- NOTE | 2017-06-15 07:59 | CR ---
Chest: Two views of the chest were obtained. Comparison: Prior chest x-ray of 06/11/17. Right sided cardiac apex is seen which is stable. Heart felt to be slightly enlarged. Tortuous thoracic aorta is seen. Lungs are hyperinflated compatible with emphysematous change. Mild degenerative change is noted within the spine. Slightly increased lung markings are seen which are stable. Impression: 1. Emphysematous change. 2. Other findings as noted above believed to be stable from previous chest x-ray. Diagnostic code #2 Agree with preliminary report issued by [facility] ([facility] preliminary report dictated on 06/13/17, 9:55 AM Central Time)
[2017-06-15] MEDS: Insulin Aspart 100 Units/ML 3 ML Pen SUBCUT SCH (08:23)
[2017-06-15] MEDS: Ipratropium 0.06% Nasal Spray 15 ML Bottle NASBOTH SCH ×2 (08:25→08:26)
[2017-06-15] MEDS: Apixaban 5 MG Tab PO SCH (08:26)
[2017-06-15] MEDS: Verapamil 120 MG Tab.ER PO SCH (08:26)
[2017-06-15] MEDS: ClonazePAM 0.5 MG Tab PO SCH (08:27)
[2017-06-15] MEDS: Furosemide 40 MG Tab PO SCH (08:27)
[2017-06-15] MEDS: Famotidine 20 MG Tab PO SCH (08:27)
[2017-06-15] MEDS: Tamsulosin 0.4 MG Cap.ER PO SCH (08:27)
[2017-06-15] MEDS: Clopidogrel 75 MG Tab PO SCH (08:27)
[2017-06-15] MEDS: PARoxetine 20 MG Tab PO SCH (08:27)
[2017-06-15] MEDS ORDERED: Levofloxacin 500 MG Tab PO SCH (09:00)
--- NOTE | 2017-06-15 09:17 | PCM.DCSUM1 ---
Discharge Summary - Hospital Course Free Text/Narrative:: Jeffy is a 66yo male admitted last night with COPD exacerbation and hypoxia. He had 2 syncopal episodes upon arrival to ED which was ambulatory. CXR is with cardiomegaly but no obvious PNA or infiltrates. BNP was 380. He was given nebx x 2 with good improvement of aeration but maintained on supplemental oxygen. Overnight he was on 4-5L/NC with saturations in the mid 90's. He was afebrile. PMH is significant for COPD, , SWAPNIL, CHF, A-Fib, HTN, HLD, CAD s/p VT with PCI, BPH, GERD, PUD, Chronic CARDENAS, anxiety/depression and pre-DM. He is a former smoker quit in 2017, and disabled. He is full code status. - Discharge Data Discharge Date: 06/15/17 (admit date 06/11/17) Discharge Disposition: Home, Self-Care 01 Condition: Good - Discharge Diagnosis/Problem(s) (1) Syncope SNOMED Code(s): 257860456 ICD Code: R55 - SYNCOPE AND COLLAPSE Status: Resolved Priority: High Qualifiers: Syncope type: unspecified Qualified Code(s): R55 - Syncope and collapse (2) Acute and chronic respiratory failure with hypoxia SNOMED Code(s): 06622920 ICD Code: J96.21 - ACUTE AND CHRONIC RESPIRATORY FAILURE WITH HYPOXIA Status: Resolved Priority: High (3) COPD exacerbation SNOMED Code(s): 493258043982255 ICD Code: J44.1 - CHRONIC OBSTRUCTIVE PULMONARY DISEASE W (ACUTE) EXACERBATION Status: Acute Priority: High (4) Afib, Atrial fibrillation SNOMED Code(s): 72596637 ICD Code: I48.91 - UNSPECIFIED ATRIAL FIBRILLATION Status: Chronic Priority: High (5) Obstructive sleep apnea on CPAP SNOMED Code(s): 79702396 ICD Code: G47.33 - OBSTRUCTIVE SLEEP APNEA (ADULT) (PEDIATRIC) Status: Chronic Priority: Medium (6) Elevated blood sugar SNOMED Code(s): 38059266 ICD Code: R73.9 - HYPERGLYCEMIA, UNSPECIFIED Status: Acute Priority: Medium (7) Chronic kidney disease SNOMED Code(s): 621073104 ICD Code: N18.9 - CHRONIC KIDNEY DISEASE, UNSPECIFIED Status: Chronic Priority: Medium Qualifiers: Chronic kidney disease stage: stage 3 (moderate) Qualified Code(s): N18.3 - Chronic kidney disease, stage 3 (moderate) (8) Type 2 diabetes mellitus SNOMED Code(s): 05012244 ICD Code: E11.9 - TYPE 2 DIABETES MELLITUS WITHOUT COMPLICATIONS Status: Chronic Priority: Medium Qualifiers: Diabetes mellitus complication status: with hyperglycemia Diabetes mellitus terminal manager insulin use: without residential use Qualified Code(s): E11.65 - Type 2 diabetes mellitus with hyperglycemia - Patient Summary/Data Operative Procedure(s) Performed: None Complications: None Consults: Consultations 06/12/17 07:02 Consult to Diabetic Nurse Specialist [CONS] Routine 06/12/17 07:07 Consult to Family Medicine Physician Assistant [CONS] Routine Labs Pending at D/C: None Planned Operative Procedure(s) after DC: None Hospital Course: I/P: Acute: COPD exacerbation with hypoxia--acute on chronic respiratory failure -Supplemental oxygen to keep saturations >90% -RT/Nebs/IS/FV -Solumedrol -IV abx, levaquin, add zithromax for anti-inflammatory coverage -Allergic to mucinex/guaifenesin -Infectious workup: Resp viral panel, s.pneumo, mycoplasma--->positive, continue resp isolation Syncope x 2 in ED -Likely related to hypoxia/COPD exacerbation -R/O other causes -Head CT this morning -Echo last obtained on 10/20= EF 55-60% with mild left septal vent hypertrophy and severe biatrial dilation -Carotid US to be obtained -Telemetry---chronic afib, no concerns/calls on tele overnight "Prediabetic"- -will check A1C, sugars have been elevated-A1C 6.10 -CDE -Accuchecks AC/HS with SSI --Will be DC'd with BG checks BID and f/up with PCP re: DM Chronic: CHF- cont home meds- last echo as above, up to date with EF of 55-65% Afib- rate controlled, eliquis, cont home meds CAD/HLD- cont home meds HTN- cont home meds, stable CKD, stage 3, stable- follow renal status with daily labs SWAPNIL- CPAP/BIPAP at HS BPH- cont flomax GERD/PUD- cont zantac Chronic CARDENAS Anxiety/Depression- cont home meds Former smoker- quit in 2017; smoking cessation education Other: GI prophylax- home zantac DVT prophylax- eliquis Daily labs Ambulate Qid LOS>96 HOURS FOR MYCOPLASMA TREATMENT; PATIENT'S FAMILY WERE INSTRUCTED TO WEAR RESPIRATORY MASK IN HIS ROOM, SEVERAL FAMILY MEMBERS INCLUDING CHILDREN WERE UNPROTECTED. PATIENT'S FAMILY HAVE NOT BEEN RESPECTFUL OF THE DIETARY ORDER BRINGING IN ANTOLIN 'S, ETC. HE WAS INSTRUCTED/EDUCATED REGARDING HEALTHY FOOD CHOICES DURING HIS LOS. Patient is Full code status - Patient Instructions Diet: Heart Healthy Diet, Drink 8-10+ Glasses/Day, Diabetic Diet Activity: As Tolerated, Cough & Deep Breathe Showering/Bathing: August Shower Notify Provider of: Fever, Increased Pain, Nausea and/or Vomiting - Discharge Plan Prescriptions/Med Rec: Albuterol/Ipratropium [DuoNeb 3.0-0.5 MG/3 ML] 3 ml NEB QIDRT #1 box Levofloxacin [Levaquin] 500 mg PO Q24H #7 tablet Prednisone [IJD: predniSONE] See Taper PO WITHBREAKFAST #30 tablet Home Medications: Home Meds Clopidogrel [Plavix] 75 mg PO DAILY 04/12/14 [History] Furosemide [Lasix] 40 mg PO DAILY 04/12/14 [History] PARoxetine HCl [Paxil] 20 mg PO DAILY 04/12/14 [History] Potassium Chloride 20 meq PO BID 04/12/14 [History] Tamsulosin HCl [Flomax] 0.4 mg PO BID 04/12/14 [History] Tiotropium [Spiriva HandiHaler] 1 cap INH DAILY 04/12/14 [History] ClonazePAM [KlonoPIN] 0.5 mg PO QAM 02/03/15 [History] Simvastatin [Zocor] 20 mg PO BEDTIME 02/03/15 [History] Apixaban [Eliquis] 5 mg PO BID 01/23/16 [History] Budesonide/Formoterol [Symbicort 160-4.5 MCG] 2 puff INH BID 01/23/16 [History] Verapamil [Calan SR] 120 mg PO BID 01/23/16 [History] Albuterol Sulfate 1 vial INH Q6H 10/18/16 [History] Albuterol Sulfate [Proair Respiclick] 2 puff INH Q4H PRN 10/18/16 [History] ClonazePAM [KlonoPIN] 1 mg PO BEDTIME 10/18/16 [History] Ipratropium [place] 1 spray NASBOTH BID 10/18/16 [History] Ranitidine [Zantac] 300 mg PO QAM 10/18/16 [History] Cholecalciferol (Vitamin D3) [Vitamin D] 1,000 unit PO DAILY 04/13/17 [History] Mirtazapine 30 mg PO BEDTIME 04/13/17 [History] Albuterol/Ipratropium [DuoNeb 3.0-0.5 MG/3 ML] 3 ml NEB QIDRT #1 box 06/15/17 [ Rx] Levofloxacin [Levaquin] 500 mg PO Q24H #7 tablet 06/15/17 [Rx] Prednisone [IJD: predniSONE] See Taper PO WITHBREAKFAST #30 tablet 06/15/17 [Rx] Patient Handouts: Diabetes Mellitus and Sick Day Management, Chronic Obstructive Pulmonary Disease, [id number], Hyperglycemia, Rirh-hc-[id number], Community-Acquired Pneumonia, Adult, [id number] Forms: ED Department Discharge Referrals: Xuan Ignacio DO [Ordering Only Provider] - 06/24/17 2:00 pm (Please follow up with Dr. Ignacio on June 24 at 2pm. ) - Discharge Summary/Plan Comment DC Time >30 min.: Yes (40 min) - General Info Date of Service: 06/15/17 - Review of Systems General: Reports: No Symptoms. Denies: Fever, Weakness, Fatigue HEENT: Reports: No Symptoms Pulmonary: Reports: Shortness of Breath (significant improvement), Cough ( minimal ), Wheezing (minimal--improved). Denies: Sputum, Hemoptysis Cardiovascular: Reports: No Symptoms. Denies: Chest Pain, Palpitations Gastrointestinal: Reports: No Symptoms Neurological: Reports: No Symptoms Psychiatric: Reports: No Symptoms - Patient Data Vitals - Most Recent: Last Vital Signs Temp 98.1 F 06/15/17 07:43 Pulse 77 06/15/17 08:26 Resp 20 06/15/17 07:43 BP 118/78 06/15/17 08:26 Pulse Ox 91 L 06/15/17 07:43 Weight - Most Recent: 212 lb 8 oz I&O - Last 24 hours: Intake & Output 06/14/17 06/15/17 06/15/17 22:59 06:59 14:59 Intake Total 1050 550 Balance 1050 550 Lab Results - Last 24 hrs: Laboratory Results - last 24 hr 06/14/17 06/14/17 06/14/17 Range/Units 11:14 17:30 20:53 WBC (4.23-9.07) K/mm3 RBC (4.63-6.08) M/mm3 Hgb (13.7-17.5) gm/L Hct (40.1-51.0) % MCV (79.0-92.2) fl MCH (25.7-32.2) pg MCHC (32.2-35.5) g/dl RDW Std Deviation (35.1-43.9) fL Plt Count (163-337) K/mm3 MPV (9.4-12.3) fl Neut % (Auto) (34.0-67.9) % Lymph % (Auto) (21.8-53.1) % [place] % (Auto) (5.3-12.2) % Eos % (Auto) (0.8-7.0) Baso % (Auto) (0.1-1.2) % Neut # (Auto) (1.78-5.38) K/mm3 Lymph # (Auto) (1.32-3.57) K/mm3 [place] # (Auto) (0.30-0.82) K/mm3 Eos # (Auto) (0.04-0.54) K/mm3 Baso # (Auto) (0.01-0.08) K/mm3 Manual Slide Review Sodium (136-145) mEq/L Potassium (3.5-5.1) mEq/L Chloride (98-107) mEq/L Carbon Dioxide (21-32) mEq/L Anion Gap (5-15) BUN (7-18) mg/dL Creatinine (0.7-1.3) mg/dL Est Cr Clr Drug Dosing mL/min Estimated GFR (MDRD) (>60) mL/min BUN/Creatinine Ratio (14-18) Glucose 484 H (80-115) mg/dL POC Glucose 271 H 392 H (80-115) mg/dL Calcium (8.5-10.1) mg/dL Magnesium (1.8-2.4) mg/dl C-Reactive Protein (<1.0) mg/dL 06/15/17 06/15/17 06/15/17 Range/Units 06:22 06:22 06:22 WBC 10.03 H (4.23-9.07) K/mm3 RBC 4.36 L (4.63-6.08) M/mm3 Hgb 13.7 (13.7-17.5) gm/L Hct 42.7 (40.1-51.0) % MCV 97.9 H (79.0-92.2) fl MCH 31.4 (25.7-32.2) pg MCHC 32.1 L (32.2-35.5) g/dl RDW Std Deviation 52.1 H (35.1-43.9) fL Plt Count 177 (163-337) K/mm3 MPV 10.0 (9.4-12.3) fl Neut % (Auto) 90.4 H (34.0-67.9) % Lymph % (Auto) 5.3 L (21.8-53.1) % [place] % (Auto) 3.8 L (5.3-12.2) % Eos % (Auto) 0 L (0.8-7.0) Baso % (Auto) 0.0 L (0.1-1.2) % Neut # (Auto) 9.07 H (1.78-5.38) K/mm3 Lymph # (Auto) 0.53 L (1.32-3.57) K/mm3 [place] # (Auto) 0.38 (0.30-0.82) K/mm3 Eos # (Auto) 0.00 L (0.04-0.54) K/mm3 Baso # (Auto) 0.00 L (0.01-0.08) K/mm3 Manual Slide Review Abnormal smear Sodium 141 (136-145) mEq/L Potassium 4.6 (3.5-5.1) mEq/L Chloride 104 (98-107) mEq/L Carbon Dioxide 30 (21-32) mEq/L Anion Gap 11.6 (5-15) BUN 28 H (7-18) mg/dL Creatinine 1.4 H (0.7-1.3) mg/dL Est Cr Clr Drug Dosing 50.50 mL/min Estimated GFR (MDRD) 50 (>60) mL/min BUN/Creatinine Ratio 20.0 H (14-18) Glucose 243 H (80-115) mg/dL POC Glucose (80-115) mg/dL Calcium 8.7 (8.5-10.1) mg/dL Magnesium 2.3 (1.8-2.4) mg/dl C-Reactive Protein < 0.2 (<1.0) mg/dL 06/15/17 Range/Units 06:37 WBC (4.23-9.07) K/mm3 RBC (4.63-6.08) M/mm3 Hgb (13.7-17.5) gm/L Hct (40.1-51.0) % MCV (79.0-92.2) fl MCH (25.7-32.2) pg MCHC (32.2-35.5) g/dl RDW Std Deviation (35.1-43.9) fL Plt Count (163-337) K/mm3 MPV (9.4-12.3) fl Neut % (Auto) (34.0-67.9) % Lymph % (Auto) (21.8-53.1) % [place] % (Auto) (5.3-12.2) % Eos % (Auto) (0.8-7.0) Baso % (Auto) (0.1-1.2) % Neut # (Auto) (1.78-5.38) K/mm3 Lymph # (Auto) (1.32-3.57) K/mm3 [place] # (Auto) (0.30-0.82) K/mm3 Eos # (Auto) (0.04-0.54) K/mm3 Baso # (Auto) (0.01-0.08) K/mm3 Manual Slide Review Sodium (136-145) mEq/L Potassium (3.5-5.1) mEq/L Chloride (98-107) mEq/L Carbon Dioxide (21-32) mEq/L Anion Gap (5-15) BUN (7-18) mg/dL Creatinine (0.7-1.3) mg/dL Est Cr Clr Drug Dosing mL/min Estimated GFR (MDRD) (>60) mL/min BUN/Creatinine Ratio (14-18) Glucose (80-115) mg/dL POC Glucose 218 H (80-115) mg/dL Calcium (8.5-10.1) mg/dL Magnesium (1.8-2.4) mg/dl C-Reactive Protein (<1.0) mg/dL CHRISTOPHER Results - Last 24 hrs: Microbiology 06/12/17 11:15 Gram Stain - Final Sputum - Expectorated Sputum Culture - Final Normal Justyna Med Orders - Current: Current Medications Albuterol (Proventil Neb Soln) 2.5 mg NEB Q4H PRN PRN Reason: shortness of breath Albuterol/Ipratropium (Duoneb 3.0-0.5 Mg/3 Ml) [address] [facility] Last Admin: 06/15/17 06:52 Dose: 3 ml Apixaban (Eliquis) [address] [facility] Last Admin: 06/15/17 08:26 Dose: 5 mg Bisacodyl (Dulcolax) 5 mg PO DAILY PRN PRN Reason: Constipation Clonazepam (Klonopin) 0.[address] [facility] Last Admin: 06/15/17 08:27 Dose: 0.5 mg Clonazepam (Klonopin) [address] [facility] Last Admin: 06/14/17 20:56 Dose: 1 mg Clopidogrel Bisulfate (Plavix) [address] [facility] Last Admin: 06/15/17 08:27 Dose: 75 mg Famotidine (Pepcid) [address] [facility] Last Admin: 06/15/17 08:27 Dose: 20 mg Furosemide (Lasix) [address] [facility] Last Admin: 06/15/17 08:27 Dose: 40 mg Insulin Aspart (Novolog) [address] [facility] PRN Reason: Protocol Last Admin: 06/15/17 08:23 Dose: 2 units Ipratropium [place] (Atrovent 0.06% Nasal [place]) [address] [facility] Last Admin: 06/15/17 08:26 Dose: 1 spray Levofloxacin (Levaquin) [address] [facility] Magnesium Hydroxide (Milk Of Magnesia) 30 ml PO BID PRN PRN Reason: Constipation Mirtazapine (Remeron) [address] [facility] Last Admin: 06/14/17 20:56 Dose: 30 mg Mometasone Furoate/Formoterol Fumar (Dulera 200-5 Mcg) [address] [facility] Last Admin: 06/14/17 20:43 Dose: 2 puff Ondansetron HCl (Zofran) 4 mg IVPUSH Q8H PRN PRN Reason: Nausea Paroxetine HCl (Paxil) [address] [facility] Last Admin: 06/15/17 08:27 Dose: 20 mg Potassium Chloride (Klor-Con M20) [address] [facility] Last Admin: 06/15/17 06:38 Dose: 20 meq Prednisone (Prednisone) [address] [facility] Simvastatin (Zocor) [address] [facility] Last Admin: 06/14/17 20:55 Dose: 20 mg Sodium Chloride (Saline Flush) 10 ml FLUSH ASDIRECTED PRN PRN Reason: Keep Vein Open Last Admin: 06/11/17 20:25 Dose: 10 ml Tamsulosin HCl (Flomax) 0.[address] [facility] Last Admin: 06/15/17 08:27 Dose: 0.4 mg Temazepam (Restoril) 7.5 mg PO BEDTIME PRN PRN Reason: Insomnia Tiotropium [place] (Spiriva Handihaler) [address] [facility] Last Admin: 06/14/17 09:10 Dose: 1 cap Verapamil HCl (Calan Sr) [address] [facility] Last Admin: 06/15/17 08:26 Dose: 120 mg Discontinued Medications Acetaminophen (Tylenol) 650 mg PO Q6H PRN PRN Reason: Pain/Fever Albuterol/Ipratropium (Duoneb 3.0-0.5 Mg/3 Ml) 3 ml NEB ONETIME ONE Stop: 06/11/17 20:19 Last Admin: 06/11/17 20:24 Dose: 3 ml Albuterol/Ipratropium (Duoneb 3.0-0.5 Mg/3 Ml) 3 ml NEB ONETIME ONE Stop: 06/11/17 21:34 Last Admin: 06/11/17 21:47 Dose: 3 ml Enoxaparin Sodium (Lovenox) 30 mg SUBCUT ONETIME ONE Stop: 06/12/17 01:01 Last Admin: 06/12/17 02:07 Dose: 30 mg Sodium Chloride (Normal Saline) 1,000 mls @ 100 mls/hr IV ASDIRECTED [facility] Stop: 06/12/17 07:00 Last Admin: 06/12/17 01:43 Dose: 100 mls/hr Levofloxacin/Dextrose 750 mg/ (Premix) 150 mls @ 100 mls/hr IV Q48H [facility] Last Admin: 06/12/17 02:05 Dose: 100 mls/hr Azithromycin 500 mg/ Sodium (Chloride) 250 mls @ 250 mls/hr IV Q24H [facility] Last Admin: 06/15/17 05:48 Dose: 250 mls/hr Levofloxacin/Dextrose 750 mg/ (Premix) 150 mls @ 100 mls/hr IV Q24H [facility] Last Admin: 06/15/17 01:48 Dose: 100 mls/hr Insulin Detemir (Levemir) 8 unit SUBCUT ONETIME ONE Stop: 06/14/17 18:06 Last Admin: 06/14/17 18:15 Dose: Not Given Insulin Detemir (Levemir) 6 unit SUBCUT ONETIME ONE Stop: 06/14/17 18:14 Last Admin: 06/14/17 18:18 Dose: 6 units Lorazepam (Ativan) 0.5 mg IVPUSH ONETIME ONE Stop: 06/11/17 21:34 Last Admin: 06/11/17 21:42 Dose: 0.5 mg Methylprednisolone Sodium Succinate (Solu-Medrol) 125 mg IVPUSH ONETIME ONE Stop: 06/11/17 20:20 Last Admin: 06/11/17 20:24 Dose: 125 mg Methylprednisolone Sodium Succinate (Solu-Medrol) [address] [facility] Last Admin: 06/15/17 08:27 Dose: 125 mg - Exam Quality Assessment: Reports: DVT Prophylaxis General: Reports: Alert, Oriented, Cooperative, No Acute Distress HEENT: Reports: Pupils Equal, EOMI, Mucous Membr. Moist/[place] Neck: Reports: Supple Lungs: Reports: Normal Respiratory Effort, Decreased Breath Sounds. Denies: Rhonchi, Wheezing Cardiovascular: Reports: Regular Rate, Regular Rhythm GI/Abdominal Exam: Normal Bowel Sounds, Soft, Non-Tender (Male) Exam: Deferred Rectal (Males) Exam: Deferred Back Exam: Reports: Normal Inspection Extremities: Normal Capillary Refill, Pedal Edema (trace to ankles) Neurological: Reports: No New Focal Deficit Psy/Mental Status: Reports: Alert, Normal Affect, Normal Mood *Q Meaningful Use (DIS) - VTE *Q VTE Criteria *Q: - Stroke *Q Stroke Criteria *Q: - AMI *Q AMI Criteria *Q:
[2017-06-15] MEDS: Formoterol/Mometasone 200-5 MCG 8.8 GM Inhaler IH SCH (09:37)
[2017-06-15] MEDS: Tiotropium Inhaler 18 MCG Inhalation Powder Cap Kit of 5 INH SCH (09:41)
[2017-06-16] MEDS ORDERED: predniSONE 20 MG Tab PO SCH (07:00)
== END 2017-06-15 10:55 | disposition home or self-care (01) | DRG 190 ==
LOC: JD.ED 20:14 → JD.MS 22:34
PROVIDERS: ADMIT Internal Medicine Cardiovascular Disease; ATTEND Internal Medicine Cardiovascular Disease
DX: J44.1 Chronic obstructive pulmonary disease with (acute) exacerbation (principal); J96.21 Acute and chronic respiratory failure with hypoxia; I13.0 Hypertensive heart and chronic kidney disease with heart failure and stage 1 through stage 4 chronic kidney disease, or unspecified chronic kidney disease; R55 Syncope and collapse; I48.91 Unspecified atrial fibrillation; I25.10 Atherosclerotic heart disease of native coronary artery without angina pectoris; I50.9 Heart failure, unspecified; N18.3 Chronic kidney disease, stage 3 (moderate); Z95.5 Presence of coronary angioplasty implant and graft; Z87.891 Personal history of nicotine dependence; E78.5 Hyperlipidemia, unspecified; I25.2 Old myocardial infarction; G47.33 Obstructive sleep apnea (adult) (pediatric); K21.9 Gastro-esophageal reflux disease without esophagitis; N40.0 Benign prostatic hyperplasia without lower urinary tract symptoms; F32.9 Major depressive disorder, single episode, unspecified; F41.9 Anxiety disorder, unspecified; R73.9 Hyperglycemia, unspecified; Z88.8 Allergy status to other drugs, medicaments and biological substances; Z79.01 Long term (current) use of anticoagulants; Z79.02 Long term (current) use of antithrombotics/antiplatelets; Z79.899 Other long term (current) drug therapy
CPT/HCPCS: 36415; 36600; 70450; 70450-26; 71045; 71045-26; 71046; 71046-26; 80048; 80053; 82803; 82947; 82962; 83036; 83605; 83735; 83880; 84443; 84484; 85025; 86140; 86738; 87070; 87205; 87486; 87581; 87633; 87798; 87899; 93005; 93010; 93880; 93880-26; 94640; 94667; 94668; 94761; 96374; 96375; 99223; 99231; 99232; 99239; 99285-25; A9270; A9270-GY; J0456; J1650; J1815-GY; J1956; J2060; J2930; J7040; J7050

== ENCOUNTER 2017-07-21 10:48 | Emergency (ER) | payer OTHER ==
[2017-07-21 11:12] VITALS: BP 124/81
--- NOTE | 2017-07-21 11:37 | EDM.PDOC ---
<Maya Saenzsea - Last Filed: 07/21/17 11:31> ED HPI GENERAL MEDICAL PROBLEM - General Chief Complaint: Genitourinary Problem Stated Complaint: RIGHT TESTICLE SWELLING Time Seen by Provider: 07/21/17 11:22 Source of Information: Reports: Patient History Limitations: Reports: No Limitations - History of Present Illness INITIAL COMMENTS - FREE TEXT/NARRATIVE: Patient is a 66 YO male who presents today with right testicular swelling. He was seen [facility] and was instructed to come here. He states this started 3-4 days ago but this morning the pain become much worse. He states the right testicle is swollen about 3-4 times normal. The pain is radiating into his groin. The pain has caused some dry heaves this morning. He also started having diarrhea around 0300 today. He has had this happen before and was seen by a urologist in [place] who placed him on antibiotics which seemed to help. He is having some urinary symptoms and states he has to strain for any urine to come out. He denies pain with urination. He denies fever. Right Groin Pain Score (Numeric/FACES): 10 - Related Data Allergies Allergy/AdvReac Type Severity Reaction Status Date / Time acetaminophen [From Tylenol] Allergy Airway Verified 07/21/17 11:01 Tightness aspirin Allergy Airway Verified 07/21/17 11:01 Tightness diltiazem Allergy Cannot Verified 07/21/17 11:01 Remember guaifenesin [From Mucinex] Allergy Tachycardia Verified 07/21/17 11:01 horseradish Allergy Airway Verified 07/21/17 11:01 Tightness hydromorphone [From Dilaudid] Allergy Cardiac Verified 07/21/17 11:01 Arrest meperidine HCl [From Demerol] Allergy Airway Verified 07/21/17 11:01 Tightness morphine Allergy Itching Verified 07/21/17 11:01 sumatriptan [From Imitrex] Allergy Cannot Verified 07/21/17 11:01 Remember sumatriptan succinate Allergy Cannot Verified 07/21/17 11:01 [From Imitrex] Remember haloperidol [From Haldol] AdvReac Change Verified 07/21/17 11:01 Mental Status haloperidol lactate AdvReac Change Verified 07/21/17 11:01 [From Haldol] Mental Status ketorolac tromethamine AdvReac Change Verified 07/21/17 11:01 [From Toradol] Mental Status antihistamines Allergy Airway Uncoded 07/21/17 11:01 Tightness Home Meds: Home Meds Clopidogrel [Plavix] 75 mg PO DAILY 04/12/14 [History] Furosemide [Lasix] 40 mg PO DAILY 04/12/14 [History] PARoxetine HCl [Paxil] 20 mg PO DAILY 04/12/14 [History] Potassium Chloride 20 meq PO BID 04/12/14 [History] Tamsulosin HCl [Flomax] 0.4 mg PO BID 04/12/14 [History] Tiotropium [Spiriva HandiHaler] 1 cap INH DAILY 04/12/14 [History] ClonazePAM [KlonoPIN] 0.5 mg PO QAM 02/03/15 [History] Simvastatin [Zocor] 20 mg PO BEDTIME 02/03/15 [History] Apixaban [Eliquis] 5 mg PO BID 01/23/16 [History] Budesonide/Formoterol [Symbicort 160-4.5 MCG] 2 puff INH BID 01/23/16 [History] Verapamil [Calan SR] 120 mg PO BID 01/23/16 [History] Albuterol Sulfate 1 vial INH Q6H 10/18/16 [History] Albuterol Sulfate [Proair Respiclick] 2 puff INH Q4H PRN 10/18/16 [History] ClonazePAM [KlonoPIN] 1 mg PO BEDTIME 10/18/16 [History] Ipratropium [place] 1 spray NASBOTH BID 10/18/16 [History] Ranitidine [Zantac] 300 mg PO QAM 10/18/16 [History] Cholecalciferol (Vitamin D3) [Vitamin D] 1,000 unit PO BID 04/13/17 [History] Mirtazapine 30 mg PO BEDTIME 04/13/17 [History] Albuterol/Ipratropium [DuoNeb 3.0-0.5 MG/3 ML] 3 ml NEB QIDRT #1 box 06/15/17 [ Rx] Acetaminophen/oxyCODONE [Percocet 325-5 MG] 1 each PO Q6HR PRN #20 tab 07/21/17 [Rx] Ciprofloxacin HCl [Cipro] 500 mg PO Q12HR #20 tablet 07/21/17 [Rx] Past Medical History HEENT History: Reports: Impaired Vision Other HEENT History: wears eyeglasses and upper dentures Cardiovascular History: Reports: Afib, CAD, Heart Failure, High Cholesterol, Hypertension, MS Other Cardiovascular History: on coumadin, stents in 1999, 5 MS, and Afib Respiratory History: Reports: COPD, Sleep Apnea Gastrointestinal History: Reports: GERD, PUD Genitourinary History: Reports: BPH Musculoskeletal History: Reports: None Neurological History: Reports: Headaches, Chronic Psychiatric History: Reports: Anxiety, Depression Endocrine/Metabolic History: Reports: Obesity/BMI 30+, Other (See Below) Other Endocrine/Metabolic History: boardline diabetic- checks AM BS daily - Infectious Disease History Infectious Disease History: Reports: Chicken Pox, Measles, Mumps - Past Surgical History HEENT Surgical History: Reports: Cataract Surgery Cardiovascular Surgical History: Reports: Coronary Artery Stent GI Surgical History: Reports: Appendectomy Musculoskeletal Surgical History: Reports: Hip Replacement, Other (See Below) Other Musculoskeletal Surgeries/Procedures:: bilateral Social & Family History - Family History Family Medical History: Noncontributory Oncologic: Reports: Leukemia Other Oncologic Family History: Brother - Tobacco Use Smoking Status *Q: Former Smoker Years of Tobacco use: 15 Packs/Tins Daily: 0.5 Used Tobacco, but Quit: No Month/Year Tobacco Last Used: 2016 Second Hand Smoke Exposure: No - Caffeine Use Caffeine Use: Reports: Soda Other Caffeine Use: 2/day - Alcohol Use Days Per Week of Alcohol Use: 0 - Recreational Drug Use Recreational Drug Use: No - Living Situation & Occupation Living situation: Reports: , with Spouse Occupation: Disabled ED ROS GENERAL - Review of Systems Review Of Systems: See Below Constitutional: Reports: No Symptoms GI/Abdominal: Reports: Abdominal Pain (pain from testicle radiating into abdomen and lower back), Diarrhea, Nausea. Denies: Vomiting : Reports: Urinary Retention. Denies: Dysuria Musculoskeletal: Reports: Back Pain (radiating from groin) Skin: Reports: Erythema (right scrotum) Neurological: Reports: No Symptoms ED EXAM, RENAL/ - Physical Exam Exam: See Below Exam Limited By: No Limitations General Appearance: Alert, WD/WN, Mild Distress Respiratory/Chest: No Respiratory Distress, Wheezing (all lung dave) Cardiovascular: Regular Rate, Rhythm GI/Abdominal: Normal Bowel Sounds, Soft, Non-Tender (Male) Exam: Scrotal Swelling (right testicle warm, moderate swelling, hard to palpation), Scrotum Tenderness (R). No: Penile Lesions, Rash, Scrotum Tenderness (L), Testicular Tenderness (L) Neurological: Alert, Oriented, CN II-XII Intact, Normal Cognition, No Motor/ Sensory Deficits Psychiatric: Normal Affect, Normal Mood Skin Exam: Warm, Dry, Intact, Normal Color, No Rash Course - Vital Signs Last Recorded V/S: Last Vital Signs Temp 97.7 F 07/21/17 10:50 Pulse 77 07/21/17 10:50 Resp 20 07/21/17 10:50 BP 124/81 07/21/17 10:50 Pulse Ox 92 L 07/21/17 10:50 - Orders/Labs/Meds Labs: Laboratory Tests 07/21/17 07/21/17 07/21/17 Range/Units 12:00 12:04 12:04 WBC 10.54 H (4.23-9.07) K/mm3 RBC 4.37 L (4.63-6.08) M/mm3 Hgb 13.9 (13.7-17.5) gm/L Hct 42.5 (40.1-51.0) % MCV 97.3 H (79.0-92.2) fl MCH 31.8 (25.7-32.2) pg MCHC 32.7 (32.2-35.5) g/dl RDW Std Deviation 53.4 H (35.1-43.9) fL Plt Count 180 (163-337) K/mm3 MPV 9.4 (9.4-12.3) fl Neut % (Auto) 77.2 H (34.0-67.9) % Lymph % (Auto) 13.2 L (21.8-53.1) % [place] % (Auto) 8.2 (5.3-12.2) % Eos % (Auto) 0.3 L (0.8-7.0) Baso % (Auto) 0.3 (0.1-1.2) % Neut # (Auto) 8.15 H (1.78-5.38) K/mm3 Lymph # (Auto) 1.39 (1.32-3.57) K/mm3 [place] # (Auto) 0.86 H (0.30-0.82) K/mm3 Eos # (Auto) 0.03 L (0.04-0.54) K/mm3 Baso # (Auto) 0.03 (0.01-0.08) K/mm3 Sodium 141 (136-145) mEq/L Potassium 3.7 (3.5-5.1) mEq/L Chloride 103 (98-107) mEq/L Carbon Dioxide 29 (21-32) mEq/L Anion Gap 12.7 (5-15) BUN 13 (7-18) mg/dL Creatinine 1.2 (0.7-1.3) mg/dL Est Cr Clr Drug Dosing 53.17 mL/min Estimated GFR (MDRD) > 60 (>60) mL/min BUN/Creatinine Ratio 10.8 L (14-18) Glucose 149 H (80-115) mg/dL Calcium 9.1 (8.5-10.1) mg/dL Total Bilirubin 0.6 (0.2-1.0) mg/dL AST 14 L (15-37) U/L ALT 21 (16-63) U/L Alkaline Phosphatase 130 H (46-116) U/L Total Protein 6.8 (6.4-8.2) g/dl Albumin 3.3 L (3.4-5.0) g/dl Globulin 3.5 gm/dL Albumin/Globulin Ratio 0.9 L (1-2) Urine Color [place] H (Yellow) Urine Appearance Slt cloudy H (Clear) Urine pH 7.0 (5.0-8.0) Ur Specific [place] 1.015 (1.005-1.030) Urine Protein Negative (Negative) Urine Glucose (UA) Negative (Negative) Urine Ketones Negative (Negative) Urine Occult Blood 3+ H (Negative) Urine Nitrite Negative (Negative) Urine Bilirubin Negative (Negative) Urine Urobilinogen 0.2 (0.2-1.0) Ur Leukocyte Esterase Trace H (Negative) Urine RBC 20-30 H (0-5) /hpf Urine WBC 0-5 (0-5) /hpf Ur Epithelial Cells Not seen (0-5) /hpf Urine Bacteria Few (FEW) /hpf Urine Mucus Few (FEW) /hpf Meds: Medications Discontinued Medications Generic Name Dose Route Start Last Admin Trade Name Freq PRN Reason Stop Dose Admin Hydromorphone HCl 1 mg 07/21/17 13:05 07/21/17 13:17 Dilaudid IVPUSH 07/21/17 13:06 0.5 mg ONETIME ONE Administration Departure - Departure Disposition: Home, Self-Care 01 Clinical Impression: Epididymitis - Discharge Information Prescriptions: Acetaminophen/oxyCODONE [Percocet 325-5 MG] 1 each PO Q6HR PRN #20 tab PRN Reason: Pain Ciprofloxacin HCl [Cipro] 500 mg PO Q12HR #20 tablet Referrals: Xuan Ignacio DO [Primary Care Provider] - Forms: ED Department Discharge Additional Instructions: Rest, Cipro antibiotic 500 mg twice daily for 10 days until gone, Tylenol for mild to moderate discomfort or Percocet to needed for more severe discomfort, do not drive when taking Percocet. Follow-up clinic in about 5-7 days if not getting back to normal as expected. <Sam Hope - Last Filed: 07/21/17 13:53> Course - Re-Assessments/Exams Free Text/Narrative Re-Assessment/Exam: 07/21/17 13:49 initial hx and exam done by MEGHAN Daniel student. I have also examined patient and agree with her hx and exam as documented. Labs all came back relatively normal. Ultrasound did show increased blood flow on the right compatible with epididymitis as expected. Will start him on Cipro 500 mg twice a day for a course of 10 days. Discharge instructions as documented Departure - Departure Time of Disposition: 13:51 Condition: Fair
[2017-07-21] MEDS ORDERED: HYDROmorphone 0.5 MG/0.5 ML SYRINGE IVPUSH ONE (13:05)
--- NOTE | 2017-07-21 13:27 | US ---
Testicular ultrasound: Multiple real-time images were obtained. Comparison: Previous testicular ultrasound of 12/01/16. Both testicles have a homogeneous ultrasound appearance. Both arterial and venous blood flow are seen within the testicles. Small epididymal cyst on the right side measures 4 mm and 2 small epididymal cysts noted on the left side measuring 8 mm and 7 mm. Bilateral hydroceles are seen. Right epididymis is larger than the left side. Showing mild increased blood flow. Measurements: Right testicle: 4.6 x 2.8 x 3.2 cm Left testicle: 4.6 x 3.2 x 2.8 cm Impression: 1. Enlarged right-sided epididymis with mild increased blood flow. This finding is fairly stable from previous exam and felt to be due to chronic epididymitis. 2. No intratesticular abnormality is seen. 3. Incidental small epididymal cysts. Mild bilateral hydroceles are noted. Diagnostic code #3
== END 2017-07-21 14:00 | disposition home or self-care (01) ==
LOC: JD.ED 10:48
DX: N45.1 Epididymitis (principal); I11.0 Hypertensive heart disease with heart failure; I50.9 Heart failure, unspecified; Z88.6 Allergy status to analgesic agent; Z88.8 Allergy status to other drugs, medicaments and biological substances; Z88.5 Allergy status to narcotic agent; Z79.899 Other long term (current) drug therapy; Z87.891 Personal history of nicotine dependence
CPT/HCPCS: 36415; 51798; 76870; 80053; 81001; 85025; 93975; 96374; 99284; J1170

== ENCOUNTER 2017-08-05 19:51 | Emergency (ER) | payer OTHER ==
[2017-08-05 19:58] VITALS: BP 125/89
[2017-08-05] MEDS ORDERED: Levofloxacin 750 MG Tab PO STA (20:32)
[2017-08-05] MEDS ORDERED: traMADol 50 MG Tab PO ONE (20:33)
--- NOTE | 2017-08-05 20:35 | EDM.PDOC ---
ED HPI GENERAL MEDICAL PROBLEM - General Chief Complaint: Genitourinary Problem Stated Complaint: TROUBLE BREATHING/KDNEY PROBLEMS Time Seen by Provider: 08/05/17 20:05 Source of Information: Reports: Patient History Limitations: Reports: No Limitations - History of Present Illness INITIAL COMMENTS - FREE TEXT/NARRATIVE: Medical records indicate that the patient was seen in this ED on 07/21/2017 with a complaint of right testicular swelling for 3-4 days, at that time. The right testicle and right scrotum were tender to palpation on examination. Workup included a CBC, CMP, urinalysis, and an ultrasound of the scrotum. The blood work was, for the most part, unremarkable. The urinalysis showed 3+ occult blood with 20-30 RBCs, but was otherwise negative. The ultrasound found an enlarged right sided epididymis, consistent with chronic epididymitis. The patient was given prescriptions for Percocet and a ten-day course of ciprofloxacin before being discharged home. The patient states that his symptoms improved completely within 3-4 days of taking the ciprofloxacin, although he states that the Percocet gave him a rash. He states that his symptoms remain resolved up until this past 08/02/2017 , when he started having slight swelling. The swelling and pain increased substantially yesterday. He states that he called his PCP, Dr. Ignacio, at the [facility] , left messages, but did not hear back. He states that he developed right flank pain this afternoon, worse this evening. He denies urinary symptoms, such as dysuria, urinary frequency, or urgency. No recent fever. He has had nausea tonight, but no emesis. He states that he felt lightheaded when walking tonight , possibly related to pain. The patient states that he has had these symptoms in the past, and was seen by a Urologist in [place] last fall for the exact same symptoms. He was told that he had epididymitis, and was treated with antibiotics. He does not recall who that Urologist was, but he would like to follow-up with Dr. Reardon in the future. Right Flank Pain Score (Numeric/FACES): 10 - Related Data Allergies Allergy/AdvReac Type Severity Reaction Status Date / Time acetaminophen [From Tylenol] Allergy Airway Verified 07/21/17 11:01 Tightness aspirin Allergy Airway Verified 07/21/17 11:01 Tightness diltiazem Allergy Cannot Verified 07/21/17 11:01 Remember guaifenesin [From Mucinex] Allergy Tachycardia Verified 07/21/17 11:01 horseradish Allergy Airway Verified 07/21/17 11:01 Tightness hydromorphone [From Dilaudid] Allergy Cardiac Verified 07/21/17 11:01 Arrest meperidine HCl [From Demerol] Allergy Airway Verified 07/21/17 11:01 Tightness morphine Allergy Itching Verified 07/21/17 11:01 oxycodone Allergy Rash Verified 08/05/17 20:03 sumatriptan [From Imitrex] Allergy Cannot Verified 07/21/17 11:01 Remember sumatriptan succinate Allergy Cannot Verified 07/21/17 11:01 [From Imitrex] Remember haloperidol [From Haldol] AdvReac Change Verified 07/21/17 11:01 Mental Status haloperidol lactate AdvReac Change Verified 07/21/17 11:01 [From Haldol] Mental Status ketorolac tromethamine AdvReac Change Verified 07/21/17 11:01 [From Toradol] Mental Status antihistamines Allergy Airway Uncoded 07/21/17 11:01 Tightness Home Meds: Home Meds Clopidogrel [Plavix] 75 mg PO DAILY 04/12/14 [History] Furosemide [Lasix] 40 mg PO DAILY 04/12/14 [History] PARoxetine HCl [Paxil] 20 mg PO DAILY 04/12/14 [History] Potassium Chloride 20 meq PO BID 04/12/14 [History] Tamsulosin HCl [Flomax] 0.4 mg PO BID 04/12/14 [History] Tiotropium [Spiriva HandiHaler] 1 cap INH DAILY 04/12/14 [History] ClonazePAM [KlonoPIN] 0.5 mg PO QAM 02/03/15 [History] Simvastatin [Zocor] 20 mg PO BEDTIME 02/03/15 [History] Apixaban [Eliquis] 5 mg PO BID 01/23/16 [History] Budesonide/Formoterol [Symbicort 160-4.5 MCG] 2 puff INH BID 01/23/16 [History] Verapamil [Calan SR] 120 mg PO BID 01/23/16 [History] Albuterol Sulfate 1 vial INH Q6H 10/18/16 [History] Albuterol Sulfate [Proair Respiclick] 2 puff INH Q4H PRN 10/18/16 [History] ClonazePAM [KlonoPIN] 1 mg PO BEDTIME 10/18/16 [History] Ipratropium [place] 1 spray NASBOTH BID 10/18/16 [History] Ranitidine [Zantac] 300 mg PO QAM 10/18/16 [History] Cholecalciferol (Vitamin D3) [Vitamin D] 1,000 unit PO BID 04/13/17 [History] Mirtazapine 30 mg PO BEDTIME 04/13/17 [History] Albuterol/Ipratropium [DuoNeb 3.0-0.5 MG/3 ML] 3 ml NEB QIDRT #1 box 06/15/17 [ Rx] Acetaminophen/oxyCODONE [Percocet 325-5 MG] 1 each PO Q6HR PRN #20 tab 07/21/17 [Rx] Ciprofloxacin HCl [Cipro] 500 mg PO Q12HR #20 tablet 07/21/17 [Rx] Past Medical History HEENT History: Reports: Impaired Vision Other HEENT History: wears eyeglasses and upper dentures Cardiovascular History: Reports: Afib (Paroxysmal), CAD, Heart Failure, High Cholesterol, Hypertension, [place] (x 5) Respiratory History: Reports: COPD (Nightly oxygen), Sleep Apnea (Nightly CPAP) Gastrointestinal History: Reports: GERD, PUD Genitourinary History: Reports: BPH Psychiatric History: Reports: Anxiety, Depression Endocrine/Metabolic History: Reports: Obesity/BMI 30+, Other (See Below) ( Prediabetes) - Infectious Disease History Infectious Disease History: Reports: Chicken Pox, Measles, Mumps - Past Surgical History HEENT Surgical History: Reports: Cataract Surgery Cardiovascular Surgical History: Reports: Coronary Artery Stent (x 4, 1999) GI Surgical History: Reports: Appendectomy Musculoskeletal Surgical History: Reports: Hip Replacement (bilateral) Social & Family History - Family History Family Medical History: Noncontributory Oncologic: Reports: Leukemia Other Oncologic Family History: Brother - Tobacco Use Smoking Status *Q: Former Smoker Years of Tobacco use: 20 Packs/Tins Daily: 0.5 Month/Year Tobacco Last Used: Quit 2016 Second Hand Smoke Exposure: No - Caffeine Use Caffeine Use: Reports: Soda Other Caffeine Use: 2/day - Alcohol Use Alcohol Use History: No Days Per Week of Alcohol Use: 0 - Recreational Drug Use Recreational Drug Use: No - Living Situation & Occupation Living situation: Reports: , with Spouse Occupation: Disabled ED ROS GENERAL - Review of Systems Review Of Systems: ROS reveals no pertinent complaints other than HPI. ED EXAM, RENAL/ - Physical Exam Exam: See Below Exam Limited By: No Limitations General Appearance: Alert, WD/WN, No Apparent Distress Eye Exam: Bilateral Eye: Normal Inspection Ears: Normal External Exam, Hearing Grossly Normal Nose: Normal Inspection, No Blood Throat/Mouth: Normal Inspection, Normal Lips, Normal Voice, No Airway Compromise Head: Atraumatic, Normocephalic Neck: Normal Inspection, Full Range of Motion Respiratory/Chest: No Respiratory Distress, Lungs Clear, Normal Breath Sounds, No Accessory Muscle Use Cardiovascular: Normal Peripheral Pulses, Regular Rate, Rhythm, No Gallop, No JVD, No Murmur, No Rub GI/Abdominal: Normal Bowel Sounds, Soft, Non-Tender, No Organomegaly, No Distention, No Abnormal Bruit, No Mass, Other (Obese) (Male) Exam: Scrotal Swelling (right), Scrotum Tenderness (R), Testicular Mass (right testicle significantly enlarged), Testicular Tenderness (R) Rectal (Males) Exam: Deferred Back Exam: Normal Inspection, Full Range of Motion Extremities: Normal Inspection, Normal Range of Motion, Normal Capillary Refill Neurological: Alert, Oriented, Normal Cognition, No Motor/Sensory Deficits Psychiatric: Normal Affect Skin Exam: Warm, Dry, Intact, Normal Color, No Rash Course - Vital Signs Last Recorded V/S: Last Vital Signs Temp 37.1 C 08/05/17 19:57 Pulse 104 H 08/05/17 19:57 Resp 23 H 08/05/17 19:57 BP 125/89 08/05/17 19:57 Pulse Ox 90 L 08/05/17 19:57 - Orders/Labs/Meds Orders: Active Orders 24 hr Category Date Time Status UA W/MICROSCOPIC [URIN] Stat Lab 08/05/17 20:41 Ordered Labs: Laboratory Tests 08/05/17 08/05/17 08/05/17 Range/Units 20:15 20:41 20:45 WBC 9.98 H (4.23-9.07) K/mm3 RBC 4.44 L (4.63-6.08) M/mm3 Hgb 13.9 (13.7-17.5) gm/L Hct 43.5 (40.1-51.0) % MCV 98.0 H (79.0-92.2) fl MCH 31.3 (25.7-32.2) pg MCHC 32.0 L (32.2-35.5) g/dl RDW Std Deviation 55.9 H (35.1-43.9) fL Plt Count 233 (163-337) K/mm3 MPV 9.5 (9.4-12.3) fl Neutrophils % (Manual) 75 H (40-60) % Band Neutrophils % 0 (0-10) % Lymphocytes % (Manual) 11 L (20-40) % Atypical Lymphs % 1 % Monocytes % (Manual) 10 (2-10) % Eosinophils % (Manual) 3 (0.8-7.0) % Basophils % (Manual) 0 L (0.2-1.2) Platelet Estimate Adequate Plt Morphology Comment Normal RBC Morph Comment Normal Sodium 138 (136-145) mEq/L Potassium 3.3 L (3.5-5.1) mEq/L Chloride 102 (98-107) mEq/L Carbon Dioxide 29 (21-32) mEq/L Anion Gap 10.3 (5-15) BUN 16 (7-18) mg/dL Creatinine 1.4 H (0.7-1.3) mg/dL Est Cr Clr Drug Dosing 47.21 mL/min Estimated GFR (MDRD) 50 (>60) mL/min BUN/Creatinine Ratio 11.4 L (14-18) Glucose 119 H (80-115) mg/dL Calcium 8.9 (8.5-10.1) mg/dL Total Bilirubin 0.7 (0.2-1.0) mg/dL AST 15 (15-37) U/L ALT 21 (16-63) U/L Alkaline Phosphatase 116 (46-116) U/L Total Protein 6.8 (6.4-8.2) g/dl Albumin 3.3 L (3.4-5.0) g/dl Globulin 3.5 gm/dL Albumin/Globulin Ratio 0.9 L (1-2) Urine Color Yellow (Yellow) Urine Appearance Clear (Clear) Urine pH 5.5 (5.0-8.0) Ur Specific [place] > or = 1.030 (1.005-1.030) Urine Protein Trace H (Negative) Urine Glucose (UA) Negative (Negative) Urine Ketones Trace H (Negative) Urine Occult Blood Negative (Negative) Urine Nitrite Negative (Negative) Urine Bilirubin Negative (Negative) Urine Urobilinogen 0.2 (0.2-1.0) Ur Leukocyte Esterase Trace H (Negative) Urine RBC 0-5 (0-5) /hpf Urine WBC 10-20 H (0-5) /hpf Ur Epithelial Cells 0-5 (0-5) /hpf Urine Bacteria Rare (FEW) /hpf Urine Mucus Many H (FEW) /hpf Meds: Medications Discontinued Medications Generic Name Dose Route Start Last Admin Trade Name Noel PRN Reason Stop Dose Admin Levofloxacin 750 mg 08/05/17 20:32 08/05/17 20:39 Levaquin PO 08/05/17 20:33 750 mg ONETIME STA Administration Tramadol HCl 50 mg 08/05/17 20:33 08/05/17 20:39 Ultram PO 08/05/17 20:34 50 mg ONETIME ONE Administration - Re-Assessments/Exams Free Text/Narrative Re-Assessment/Exam: 08/05/17 20:34 The patient appears to have recurrence of his right epididymitis. I ordered blood work and a urinalysis, but I don't see an indication to repeat an ultrasound of the scrotum/testicle. I have ordered Levaquin 750 mg orally and tramadol 50 mg (recent Percocet gave the patient a rash), and I intend to refer the patient to Dr. Reardon. 08/05/17 21:19 The patient's CBC shows a mildly elevated RBC count of 9.98, but is otherwise normal. His CMP is remarkable for a creatinine mildly elevated at 1.4. His baseline creatinine is 1.2-1.7. His urinalysis is nitrate negative, leukocyte esterase trace, 10-20 WBCs, and rare bacteria. These findings are not inconsistent with epididymitis. As above, the patient has been started on Levaquin, and I will prescribe a day course, along with oral tramadol. I will refer the patient to Dr. Reardon. Departure - Departure Time of Disposition: 21:20 Disposition: Home, Self-Care 01 Condition: Fair Clinical Impression: Epididymitis, right - Discharge Information Instructions: Epididymitis Referrals: Xuan Ignacio DO [Primary Care Provider] - Juancho Reardon MD [Physician] - Forms: ED Department Discharge Additional Instructions: You were seen in the emergency room for recurrent swelling and pain of your right testicle. Workup in the ER included blood work and a urinalysis, all of which were grossly unremarkable. Based on your history and physical examination, it is MOST LIKELY that you are suffering from recurrent epididymitis. You have been started on the antibiotic Levaquin. Take one tablet each evening, starting tomorrow night, , 08/06/2017, as prescribed. Finish the entire prescription unless told otherwise by Dr. Reardon. You have been started on the pain medicine tramadol. Take one tablet up to every 8 hours as needed for pain. If you take tramadol, do not drive for 10 hours afterwards. Follow-up with the Urologist Dr. Reardon at the next available appointment. If any other problems, please do not hesitate to return to the ER. - My Orders Last 24 Hours: My Active Orders 08/05/17 20:41 UA W/MICROSCOPIC [URIN] Stat - Assessment/Plan Last 24 Hours: My Active Orders 08/05/17 20:41 UA W/MICROSCOPIC [URIN] Stat
== END 2017-08-05 21:40 | disposition home or self-care (01) ==
LOC: JD.ED 19:51
DX: N45.1 Epididymitis (principal); I11.0 Hypertensive heart disease with heart failure; I50.9 Heart failure, unspecified; E66.9 Obesity, unspecified; J44.9 Chronic obstructive pulmonary disease, unspecified; Z88.8 Allergy status to other drugs, medicaments and biological substances; Z88.6 Allergy status to analgesic agent; Z79.899 Other long term (current) drug therapy; Z87.891 Personal history of nicotine dependence
CPT/HCPCS: 36415; 80053; 81001; 85025; 99284; A9270

== ENCOUNTER 2017-09-07 17:41 | Emergency (ER) | payer OTHER ==
[2017-09-07 17:54] VITALS: BP 123/88
[2017-09-07] MEDS ORDERED: Sodium Chloride 0.9% 10 ML Syringe FLUSH PRN (18:13)
[2017-09-07] MEDS ORDERED: Ondansetron 4 MG/2 ML SDV IVPUSH ONE (18:13)
[2017-09-07] MEDS ORDERED: fentaNYL 100 MCG/2 ML SDV IVPUSH ONE (18:13)
[2017-09-07] MEDS ORDERED: Sodium Chloride 0.9% 1,000 ML IV SCH (18:15)
--- NOTE | 2017-09-07 18:20 | EDM.PDOC ---
ED HPI GENERAL MEDICAL PROBLEM - General Chief Complaint: Genitourinary Problem Stated Complaint: Testicular Pain Time Seen by Provider: 09/07/17 18:06 Source of Information: Reports: Patient History Limitations: Reports: No Limitations - History of Present Illness INITIAL COMMENTS - FREE TEXT/NARRATIVE: Patient is a 66-year-old male presents ED complaining of severe right testicle pain. Patient has chronic epididymitis and states the swelling to his right testicle has grown over the last few months. He was evaluated by urology and [facility] with intentions of performing a orchectomy this coming . He's been on Cipro and tramadol with no relief of symptoms. He presents to the ED for pain management and also transfer to [facility] to have this completed sooner. Denies any fever, painful urination, hematuria, nausea vomiting, or any additional complaints. Currently pains a 20 out of 10. Patient has a history of coronary disease A. fib, with multiple stents present. He is on Plavix and Eliquis. In addition is a history of COPD and is on home O2. Groin Pain Score (Numeric/FACES): 10 - Related Data Allergies Allergy/AdvReac Type Severity Reaction Status Date / Time acetaminophen [From Tylenol] Allergy Airway Verified 09/07/17 17:54 Tightness aspirin Allergy Airway Verified 09/07/17 17:54 Tightness diltiazem Allergy Cannot Verified 09/07/17 17:54 Remember guaifenesin [From Mucinex] Allergy Tachycardia Verified 09/07/17 17:54 horseradish Allergy Airway Verified 09/07/17 17:54 Tightness hydromorphone [From Dilaudid] Allergy Cardiac Verified 09/07/17 17:54 Arrest meperidine HCl [From Demerol] Allergy Airway Verified 09/07/17 17:54 Tightness morphine Allergy Itching Verified 09/07/17 17:54 oxycodone Allergy Rash Verified 09/07/17 17:54 sumatriptan [From Imitrex] Allergy Cannot Verified 09/07/17 17:54 Remember sumatriptan succinate Allergy Cannot Verified 09/07/17 17:54 [From Imitrex] Remember haloperidol [From Haldol] AdvReac Change Verified 09/07/17 17:54 Mental Status haloperidol lactate AdvReac Change Verified 09/07/17 17:54 [From Haldol] Mental Status ketorolac tromethamine AdvReac Change Verified 09/07/17 17:54 [From Toradol] Mental Status antihistamines Allergy Airway Uncoded 07/21/17 11:01 Tightness Home Meds: Home Meds Clopidogrel [Plavix] 75 mg PO DAILY 04/12/14 [History] Furosemide [Lasix] 40 mg PO DAILY 04/12/14 [History] PARoxetine HCl [Paxil] 20 mg PO DAILY 04/12/14 [History] Potassium Chloride 20 meq PO BID 04/12/14 [History] Tamsulosin HCl [Flomax] 0.4 mg PO BID 04/12/14 [History] Tiotropium [Spiriva HandiHaler] 1 cap INH DAILY 04/12/14 [History] ClonazePAM [KlonoPIN] 0.5 mg PO QAM 02/03/15 [History] Simvastatin [Zocor] 20 mg PO BEDTIME 02/03/15 [History] Apixaban [Eliquis] 5 mg PO BID 01/23/16 [History] Budesonide/Formoterol [Symbicort 160-4.5 MCG] 2 puff INH BID 01/23/16 [History] Verapamil [Calan SR] 120 mg PO BID 01/23/16 [History] Albuterol Sulfate 1 vial INH Q6H 10/18/16 [History] Albuterol Sulfate [Proair Respiclick] 2 puff INH Q4H PRN 10/18/16 [History] ClonazePAM [KlonoPIN] 1 mg PO BEDTIME 10/18/16 [History] Ipratropium Wilsey 1 spray NASBOTH BID 10/18/16 [History] Ranitidine [Zantac] 300 mg PO QAM 10/18/16 [History] Cholecalciferol (Vitamin D3) [Vitamin D] 1,000 unit PO BID 04/13/17 [History] Mirtazapine 30 mg PO BEDTIME 04/13/17 [History] Albuterol/Ipratropium [DuoNeb 3.0-0.5 MG/3 ML] 3 ml NEB QIDRT #1 box 06/15/17 [ Rx] Acetaminophen/oxyCODONE [Percocet 325-5 MG] 1 each PO Q6HR PRN #20 tab 07/21/17 [Rx] Ciprofloxacin HCl [Cipro] 500 mg PO Q12HR #20 tablet 07/21/17 [Rx] Past Medical History HEENT History: Reports: Impaired Vision Other HEENT History: wears eyeglasses and upper dentures Cardiovascular History: Reports: Afib (Paroxysmal), CAD, Heart Failure, High Cholesterol, Hypertension, NM (x 5) Other Cardiovascular History: on coumadin, stents in 1999, 5 NM, and Afib Respiratory History: Reports: COPD (Nightly oxygen), Sleep Apnea (Nightly CPAP) Gastrointestinal History: Reports: GERD, PUD Genitourinary History: Reports: BPH Musculoskeletal History: Reports: None Neurological History: Reports: Headaches, Chronic Psychiatric History: Reports: Anxiety, Depression Endocrine/Metabolic History: Reports: Obesity/BMI 30+, Other (See Below) ( Prediabetes) Other Endocrine/Metabolic History: boardline diabetic- checks AM BS daily - Infectious Disease History Infectious Disease History: Reports: Chicken Pox, Measles, Mumps - Past Surgical History HEENT Surgical History: Reports: Cataract Surgery Cardiovascular Surgical History: Reports: Coronary Artery Stent (x 4, 1999) GI Surgical History: Reports: Appendectomy Musculoskeletal Surgical History: Reports: Hip Replacement (bilateral) Social & Family History - Family History Family Medical History: Noncontributory Oncologic: Reports: Leukemia Other Oncologic Family History: Brother - Caffeine Use Caffeine Use: Reports: Soda Other Caffeine Use: 2/day - Living Situation & Occupation Living situation: Reports: , with Spouse Occupation: Disabled ED ROS GENERAL - Review of Systems Review Of Systems: See Below Constitutional: Reports: Chills, Decreased Appetite. Denies: Fever HEENT: Reports: No Symptoms Respiratory: Reports: Shortness of Breath (Chronic), Cough (Chronic) Cardiovascular: Reports: No Symptoms GI/Abdominal: Reports: Abdominal Pain (Radiating up from his right testicle into the right inguinal region.), Constipation, Diarrhea, Decreased Appetite, Nausea, Vomiting. Denies: Black Stool, Bloody Stool, Distension, Flatus ED EXAM, RENAL/ - Physical Exam Exam: See Below Exam Limited By: No Limitations General Appearance: Alert, WD/WN, Moderate Distress Ears: Hearing Grossly Normal Nose: Normal Inspection Throat/Mouth: Normal Voice, No Airway Compromise Neck: Normal Inspection, Supple Respiratory/Chest: No Respiratory Distress, Rhonchi (Throughout), Wheezing ( Throughout), Accessory Muscle Use, Prolonged Expiration Cardiovascular: Normal Peripheral Pulses, Irregularly Irregular GI/Abdominal: Normal Bowel Sounds, Soft, Tender (Right lower/flank) (Male) Exam: Cremasteric Reflex, Scrotal Swelling, Scrotum Tenderness (R), Testicular Mass (Right), Testicular Tenderness (R) (Right). No: Inguinal Lymphadenopathy, Urethral Discharge Back Exam: Normal Inspection. No: CVA Tenderness (L), CVA Tenderness (R) Extremities: Normal Inspection Neurological: Alert, Oriented, CN II-XII Intact, Normal Cognition, No Motor/ Sensory Deficits Psychiatric: Normal Affect, Normal Mood Skin Exam: Warm, Dry, Intact, Normal Color, No Rash Course - Vital Signs Last Recorded V/S: Last Vital Signs Temp 97.4 F 09/07/17 17:51 Pulse 89 09/08/17 01:12 Resp 16 09/07/17 17:51 BP 123/88 09/07/17 17:51 Pulse Ox 93 L 09/08/17 01:12 - Orders/Labs/Meds Labs: Laboratory Tests 09/07/17 09/07/17 Range/Units 18:35 18:35 WBC 8.67 (4.23-9.07) K/mm3 RBC 4.13 L (4.63-6.08) M/mm3 Hgb 13.2 L (13.7-17.5) gm/L Hct 41.1 (40.1-51.0) % MCV 99.5 H (79.0-92.2) fl MCH 32.0 (25.7-32.2) pg MCHC 32.1 L (32.2-35.5) g/dl RDW Std Deviation 53.7 H (35.1-43.9) fL Plt Count 166 (163-337) K/mm3 MPV 10.1 (9.4-12.3) fl Neutrophils % (Manual) 65 H (40-60) % Band Neutrophils % Not Reportable Lymphocytes % (Manual) 29 (20-40) % Monocytes % (Manual) 1 L (2-10) % Eosinophils % (Manual) 5 (0.8-7.0) % Basophils % (Manual) Not Reportable Platelet Estimate Adequate Anisocytosis 1+ slight RBC Morph Comment Not Reportable Sodium 136 (136-145) mEq/L Potassium 4.4 (3.5-5.1) mEq/L Chloride 100 (98-107) mEq/L Carbon Dioxide 28 (21-32) mEq/L Anion Gap 12.4 (5-15) BUN 15 (7-18) mg/dL Creatinine 1.4 H (0.7-1.3) mg/dL Est Cr Clr Drug Dosing 45.57 mL/min Estimated GFR (MDRD) 50 (>60) mL/min BUN/Creatinine Ratio 10.7 L (14-18) Glucose 78 L (80-115) mg/dL Calcium 8.5 (8.5-10.1) mg/dL Total Bilirubin 0.6 (0.2-1.0) mg/dL AST 23 (15-37) U/L ALT 25 (16-63) U/L Alkaline Phosphatase 116 (46-116) U/L C-Reactive Protein 4.2 H* (<1.0) mg/dL Total Protein 6.7 (6.4-8.2) g/dl Albumin 3.2 L (3.4-5.0) g/dl Globulin 3.5 gm/dL Albumin/Globulin Ratio 0.9 L (1-2) Meds: Medications Discontinued Medications Generic Name Dose Route Start Last Admin Trade Name Estivenq PRN Reason Stop Dose Admin Albuterol Confirm 09/07/17 21:30 09/08/17 05:07 Proventil Neb Soln Administered 09/07/17 21:31 Not Given Dose 2.5 mg .ROUTE .STK-MED ONE Diatrizoate Meglum/Diatrizoate Sod 90 ml 09/07/17 20:00 09/07/17 20:05 Gastrografin 37% PO 09/07/17 20:01 90 ml ONETIME ONE Administration Fentanyl 50 mcg 09/07/17 18:13 09/07/17 18:32 Sublimaze IVPUSH 09/07/17 18:14 50 mcg ONETIME ONE Administration Hydromorphone HCl Confirm 09/07/17 19:44 Dilaudid Administered 09/07/17 19:45 Dose 0.5 mg .ROUTE .STK-MED ONE Hydromorphone HCl Confirm 09/07/17 21:19 Dilaudid Administered 09/07/17 21:20 Dose 0.5 mg .ROUTE .STK-MED ONE Sodium Chloride 1,000 mls @ 125 mls/hr 09/07/17 18:15 09/07/17 18:32 Normal Saline IV 125 mls/hr ASDIRECTED SANTOS Administration Ondansetron HCl 4 mg 09/07/17 18:13 09/07/17 18:39 Zofran IVPUSH 09/07/17 18:14 4 mg ONETIME ONE Administration Sodium Chloride 10 ml 09/07/17 18:13 09/07/17 18:39 Saline Flush FLUSH 10 ml ASDIRECTED PRN Administration Keep Vein Open - Re-Assessments/Exams Free Text/Narrative Re-Assessment/Exam: EKG: Atrial Fibrillation HR 93, with no acute ST changes noted. X-ray of his abdomen reviewed with few dilated bowels. Reviewed with . Final interpretation is pending. Suggested CT of the abdomen/ pelvis with contrast. Labs reveal: Sodium 136, potassium 4.4, glucose 78, creatinine 1.4, and CRP 4.2. I have ordered CT of the abdomen/pelvis with oral contrast. 1946 Patient continues to have pain. Requests dilaudid. I have ordered dilaudid 0.5mg Slow IVP. White blood cell count 8.67, hemoglobin 13.2, platelet count 166, neutrophil percentage 65, no bands. Ultrasound scrotum impression: Large right hydrocele. 2114 CT abdomen/pelvis without contrast impression: Colonic diverticulosis. No evidence of cyst or diverticulitis. Patient is short of breath with exertion while returning from the CT. Requests albuterol neb tx. He normally has a albuterol neb tx at this time. This has been ordered. Discussed results of labs, ultrasound results, and CT results. Patient is refusing to be discharged home. He cannot get the pain under control. States tramadol is not working. Patient is requesting transport to [facility] with admission for pain control. [address] [facility] One Call: Spoke with Dr. Zarate care transitions nurse hospitalists. He suggested attempting to get his pain control with oral Dilaudid. If able send him home and follow-up with urology as scheduled. If not will admit. 2156 Spoke with the patient. Discussed plan with him. He is requesting to go home. I will provide a prescription for dilaudid 2mg, tab every 6 hrs prn pain. Stop tramadol. Return precautions discussed with patient. He voiced understanding. Discharge time: 2149. Departure - Departure Time of Disposition: 21:50 Disposition: Home, Self-Care 01 Condition: Good Clinical Impression: Right testicular pain, Hydrocele of testis COPD (chronic obstructive pulmonary disease) Qualifiers: COPD type: unspecified COPD Qualified Code(s): J44.9 - Chronic obstructive pulmonary disease, unspecified - Discharge Information Referrals: PCP,Not In Area [Primary Care Provider] - Forms: ED Department Discharge Additional Instructions: See paper discharge.
[2017-09-07] MEDS ORDERED: HYDROmorphone 0.5 MG/0.5 ML SYRINGE ONE ×2 (19:44→21:19)
[2017-09-07] MEDS ORDERED: Diatrizoate Meglumine/Diatrizoate Sodium 37% 120 ML Bottle PO ONE (20:00)
[2017-09-07] MEDS ORDERED: Albuterol 0.083% 2.5 MG/3 ML Neb Soln ONE (21:30)
--- NOTE | 2017-09-08 10:26 | CR ---
Abdomen: Supine view of the abdomen was obtained. Gas is seen within colon with no small bowel dilatation which is felt to be incidental. Vascular calcification is seen as well as probable large phlebolith within the pelvis. Bilateral hip prosthesis is noted. Bony structures are osteopenic. Impression: 1. Incidental findings. Diagnostic code #2
--- NOTE | 2017-09-08 10:26 | US ---
Testicular ultrasound: Multiple real-time images were obtained. Comparison: Prior testicular ultrasound exam of 07/21/17. Large right sided hydrocele is seen. Testicles have a homogeneous ultrasound appearance. No intratesticular abnormality is appreciated. Both arterial and venous blood flow are seen within the testicles. Bilateral epididymal cysts are seen measuring less than 1 cm. Very small left-sided hydrocele is noted. Measurements: Right testicle: 5.0 x 3.0 x 3.0 cm Left testicle: 4.8 x 3.0 x 3.0 cm Impression: 1. Large right-sided hydrocele. Small left-sided hydrocele. 2. Incidental small epididymal cysts. 3. No intratesticular abnormality is identified. Note: When compared to prior study the increased blood flow within the right testicle has normalized. Hydroceles are felt to be fairly stable. Epididymal cysts also felt to be fairly stable. Diagnostic code #3 I agree with preliminary report from [facility], finalized at 09/07/17, 9:19 PM Central Time
--- NOTE | 2017-09-08 14:33 | CT ---
CT abdomen and pelvis Technique: Multiple axial sections were obtained from above the dome of the diaphragm inferiorly through the pubic symphysis. Intravenous contrast was not utilized. Oral contrast has been given. Comparison: Prior CT abdomen and pelvis exam of 11/01/16. Findings: Visualized lung bases show scarring and emphysematous change. Noncontrast appearance of the liver shows no focal abnormality. Spleen appears within normal limits. Adrenal glands show no nodule. Pancreas appears within normal limits. Gallbladder contains no calcified gallstones. Kidneys show no abnormal calcifications. Cyst is identified off the left kidney which is stable from prior study measuring roughly 2 cm. Aorta shows atherosclerotic calcification. 2.8 cm abdominal aortic aneurysm is seen which measured about 2.7 cm on prior study within the distal aorta. Atherosclerotic calcification continues into the iliac vessels. Sigmoid diverticuli are seen without inflammatory change of diverticulitis. Artifact is noted within the pelvis from bilateral hip prosthesis. No free fluid or inflammatory change is seen. Appendix is not visualized. Bone window settings were reviewed which appear within normal limits for the patient's age. Impression: 1. Small distal abdominal aortic aneurysm measuring 2.8 cm comparing to 2.[address] exam. 2. Sigmoid diverticuli without inflammatory change of diverticulitis. 3. Other incidental findings. Diagnostic code #3 I agree with preliminary report from [facility], finalized at 09/07/17, 10:16 PM Central Time
== END 2017-09-07 22:00 | disposition home or self-care (01) ==
LOC: JD.ED 17:41
DX: N43.3 Hydrocele, unspecified (principal); J44.9 Chronic obstructive pulmonary disease, unspecified; I11.0 Hypertensive heart disease with heart failure; I50.9 Heart failure, unspecified; E66.9 Obesity, unspecified; Z88.8 Allergy status to other drugs, medicaments and biological substances; Z88.5 Allergy status to narcotic agent; Z79.899 Other long term (current) drug therapy
CPT/HCPCS: 36415; 74018; 74176; 76870; 80053; 85007; 85027; 86140; 93975; 94640; 96361; 96374; 96375; 96376; 99284; J1170; J2405; J3010; J7040; J7050; Q9963

== ENCOUNTER 2018-04-26 08:13 | Emergency (ER) | payer OTHER ==
[2018-04-26 08:20] VITALS: BP 128/73
--- NOTE | 2018-04-26 09:10 | EDM.PDOC ---
ED HPI GENERAL MEDICAL PROBLEM - General Chief Complaint: Respiratory Problem Stated Complaint: SOB Time Seen by Provider: 04/26/18 08:24 Source of Information: Reports: Patient, RN Notes Reviewed History Limitations: Reports: No Limitations - History of Present Illness INITIAL COMMENTS - FREE TEXT/NARRATIVE: The patient states that he has had a cough, productive of clear or yellowish sputum, sinus congestion, any sinus headache, for about 2 weeks. He has had dyspnea on exertion, although no dyspnea at rest, for about 1.5 weeks. He also reports sharp left upper quadrant abdominal pain on and off for the past 2 weeks. He gets about 2 episodes per day, usually lasting 1-2 minutes. No recent fever. No recent nausea, vomiting, constipation, diarrhea, or urinary symptoms. The patient initially stated that he has been taking his usual medications as prescribed, but later admitted that has been taking his usual medications, but not as prescribed. He has been using his nasal steroid spray with greatly increased frequency, and he has been taking an albuterol neb nearly every hour. When I pointed out that this may not be safe, he replied "What else am I supposed to do?" The patient states that he had similar symptoms in January 2018, that he went to the [facility], and was prescribed prednisone and "very strong" antibiotic, and that his symptoms quickly improved. The patient has a history of COPD, but continues to smoke. The patient repeated several times that he did not want to come to the ED, and that he will be following up with his PCP at the [facility] in the next day or two, but that his made him come. The patient's PCP is at the [facility]. - Related Data Allergies Allergy/AdvReac Type Severity Reaction Status Date / Time acetaminophen [From Tylenol] Allergy Airway Verified 04/26/18 08:21 Tightness aspirin Allergy Airway Verified 04/26/18 08:21 Tightness horseradish Allergy Airway Verified 04/26/18 08:21 Tightness hydromorphone [From Dilaudid] Allergy Cardiac Verified 04/26/18 08:21 Arrest ibuprofen Allergy Airway Verified 04/26/18 08:21 Tightness meperidine HCl [From Demerol] Allergy Airway Verified 04/26/18 08:21 Tightness morphine Allergy Itching Verified 04/26/18 08:21 oxycodone Allergy Rash Verified 04/26/18 08:21 sumatriptan [From Imitrex] Allergy Cannot Verified 04/26/18 08:21 Remember sumatriptan succinate Allergy Cannot Verified 04/26/18 08:21 [From Imitrex] Remember guaifenesin [From Mucinex] AdvReac Tachycardia Verified 04/26/18 08:21 haloperidol [From Haldol] AdvReac Change Verified 04/26/18 08:21 Mental Status haloperidol lactate AdvReac Change Verified 04/26/18 08:21 [From Haldol] Mental Status ketorolac tromethamine AdvReac Change Verified 04/26/18 08:21 [From Toradol] Mental Status antihistamines Allergy Airway Uncoded 04/26/18 08:21 Tightness Home Meds: Home Meds Clopidogrel [Plavix] 75 mg PO DAILY 04/12/14 [History] Furosemide [Lasix] 40 mg PO DAILY 04/12/14 [History] PARoxetine HCl [Paxil] 20 mg PO DAILY 04/12/14 [History] Potassium Chloride 10 meq PO BID 04/12/14 [History] Tamsulosin HCl [Flomax] 0.4 mg PO DAILY 04/12/14 [History] Tiotropium [Spiriva HandiHaler] 1 cap INH DAILY 04/12/14 [History] ClonazePAM [KlonoPIN] 0.5 mg PO QAM 02/03/15 [History] Simvastatin [Zocor] 20 mg PO BEDTIME 02/03/15 [History] Apixaban [Eliquis] 5 mg PO BID 01/23/16 [History] Budesonide/Formoterol [Symbicort 160-4.5 MCG] 2 puff INH BID 01/23/16 [History] Verapamil [Calan SR] 120 mg PO BID 01/23/16 [History] Albuterol Sulfate 1 vial INH Q6H 10/18/16 [History] Albuterol Sulfate [Proair Respiclick] 2 puff INH Q4H PRN 10/18/16 [History] ClonazePAM [KlonoPIN] 1 mg PO BEDTIME 10/18/16 [History] Ipratropium [place] 1 spray NASBOTH BID 10/18/16 [History] Ranitidine [Zantac] 300 mg PO QAM 10/18/16 [History] Cholecalciferol (Vitamin D3) [Vitamin D] 1,000 unit PO BID 04/13/17 [History] Mirtazapine 30 mg PO BEDTIME 04/13/17 [History] Magnesium Oxide 420 mg PO DAILY 02/19/18 [History] Past Medical History HEENT History: Reports: Impaired Vision Other HEENT History: wears eyeglasses and upper dentures Cardiovascular History: Reports: Afib (Paroxysmal), CAD, Heart Failure, High Cholesterol, Hypertension, [place] (x 5), Other (See Below) (Dextrocardia) Respiratory History: Reports: COPD (nightly O2 2.5 L), Sleep Apnea (nightly AutoPAP) Gastrointestinal History: Reports: GERD, PUD Genitourinary History: Reports: Acute Renal Failure, BPH Neurological History: Reports: Headaches, Chronic Psychiatric History: Reports: Anxiety, Depression Endocrine/Metabolic History: Reports: Obesity/BMI 30+, Other (See Below) ( Prediabetes) - Infectious Disease History Infectious Disease History: Reports: Chicken Pox, Measles, Mumps - Past Surgical History HEENT Surgical History: Reports: Cataract Surgery Cardiovascular Surgical History: Reports: Coronary Artery Stent (x , 1999) GI Surgical History: Reports: Appendectomy Male Surgical History: Reports: Prostate Biopsy Musculoskeletal Surgical History: Reports: Hip Replacement (bilateral) Social & Family History - Family History Family Medical History: Noncontributory Oncologic: Reports: Leukemia Other Oncologic Family History: Brother - Tobacco Use Smoking Status *Q: Current Every Day Smoker Years of Tobacco use: 52 Packs/Tins Daily: 0.1 Packs/Tins Daily Comment: Down from /2 ppd - Caffeine Use Caffeine Use: Reports: Coffee Other Caffeine Use: 2/day - Alcohol Use Alcohol Use History: No - Recreational Drug Use Recreational Drug Use: No - Living Situation & Occupation Living situation: Reports: , with Spouse Occupation: Retired ED ROS GENERAL - Review of Systems Review Of Systems: ROS reveals no pertinent complaints other than HPI. ED EXAM, GENERAL - Physical Exam Exam: See Below Exam Limited By: No Limitations General Appearance: Alert, WD/WN, No Apparent Distress Eye Exam: Bilateral Eye: EOMI, Normal Inspection Ears: Normal External Exam, Normal Canal, Normal TMs Nose: Normal Inspection, No Blood, Other (Lateral nasal mucosal edema) Throat/Mouth: Normal Inspection, Normal Lips, Normal Teeth, Normal Gums, Normal Oropharynx, Normal Voice, No Airway Compromise Head: Atraumatic, Normocephalic Neck: Normal Inspection, Supple, Non-Tender, Full Range of Motion. No: Lymphadenopathy (L), Lymphadenopathy (R) Respiratory/Chest: No Respiratory Distress, No Accessory Muscle Use, Decreased Breath Sounds (throughout), Wheezing (faint, expiratory), Prolonged Expiration. No: Crackles, Rhonchi Cardiovascular: Normal Peripheral Pulses, No Gallop, No JVD, No Murmur, No Rub, Irregularly Irregular (regular rate) Peripheral Pulses: 4+: Radial (L), Radial (R) GI/Abdominal: Normal Bowel Sounds, Soft, Non-Tender, No Organomegaly, No Distention, No Abnormal Bruit, No Mass, Other (Obese) (Male) Exam: Deferred Rectal (Males) Exam: Deferred Back Exam: Normal Inspection, Full Range of Motion, NT Extremities: Normal Inspection, Normal Range of Motion, Normal Capillary Refill Neurological: Alert, Oriented, Normal Cognition, No Motor/Sensory Deficits Psychiatric: Normal Affect Skin Exam: Warm, Dry, Intact, Normal Color, No Rash EKG INTERPRETATION EKG Date: 04/26/18 Time: 09:27 Rhythm: A-Fib Rate (Beats/Min): 69 [place]: Normal P-Wave: Absent QRS: Normal ST-T: Normal QT: Prolonged (QTc 599 ms) Comparison: Change From Previous EKG (QTc prolongation new since 02/19/2018) Course - Vital Signs Last Recorded V/S: Last Vital Signs Temp 36.4 C 04/26/18 08:17 Pulse 88 04/26/18 08:17 Resp 18 04/26/18 08:17 BP 128/73 04/26/18 08:17 Pulse Ox 88 L 04/26/18 10:09 - Orders/Labs/Meds Labs: Laboratory Tests 04/26/18 04/26/18 04/26/18 Range/Units 09:10 09:15 09:15 WBC 8.27 (4.23-9.07) K/mm3 RBC 4.37 L (4.63-6.08) M/mm3 Hgb 14.5 (13.7-17.5) gm/L Hct 44.2 (40.1-51.0) % MCV 101.1 H (79.0-92.2) fl MCH 33.2 H (25.7-32.2) pg MCHC 32.8 (32.2-35.5) g/dl RDW Std Deviation 52.4 H (35.1-43.9) fL Plt Count 174 (163-337) K/mm3 MPV 9.0 L (9.4-12.3) fl Neutrophils % (Manual) 60 (40-60) % Band Neutrophils % 0 (0-10) % Lymphocytes % (Manual) 32 (20-40) % Atypical Lymphs % 0 % Monocytes % (Manual) 2 (2-10) % Eosinophils % (Manual) 6 (0.8-7.0) % Basophils % (Manual) 0 L (0.2-1.2) Platelet Estimate Adequate RBC Morph Comment Normal D-Dimer, Quantitative 0.23 (0.19-0.50) mg/L Puncture Site Rt radial ABG pH 7.46 H (7.35-7.45) ABG pCO2 43.3 (35.0-45.0) mmHg ABG pO2 56.0 L (80.0-100.0) mmHg ABG HCO3 30.3 H (22.0-26.0) meq/L ABG O2 Saturation 86.6 L (96.0-97.0) % ABG Base Excess 6.1 H (-2-2.0) Oskar Test Positive A-a Gradient 24 mmHg FiO2 21.00 (21.00-100.00) % Sodium (136-145) mEq/L Potassium (3.5-5.1) mEq/L Chloride (98-107) mEq/L Carbon Dioxide (21-32) mEq/L Anion Gap (5-15) BUN (7-18) mg/dL Creatinine (0.7-1.3) mg/dL Est Cr Clr Drug Dosing mL/min Estimated GFR (MDRD) (>60) mL/min BUN/Creatinine Ratio (14-18) Glucose (80-115) mg/dL Calcium (8.5-10.1) mg/dL Total Bilirubin (0.2-1.0) mg/dL AST (15-37) U/L ALT (16-63) U/L Alkaline Phosphatase (46-116) U/L Troponin I (0.00-0.056) ng/mL NT-Pro-B Natriuret Pep (0-125) pg/mL Total Protein (6.4-8.2) g/dl Albumin (3.4-5.0) g/dl Globulin gm/dL Albumin/Globulin Ratio (1-2) 04/26/18 04/26/18 Range/Units 09:15 09:15 WBC (4.23-9.07) K/mm3 RBC (4.63-6.08) M/mm3 Hgb (13.7-17.5) gm/L Hct (40.1-51.0) % MCV (79.0-92.2) fl MCH (25.7-32.2) pg MCHC (32.2-35.5) g/dl RDW Std Deviation (35.1-43.9) fL Plt Count (163-337) K/mm3 MPV (9.4-12.3) fl Neutrophils % (Manual) (40-60) % Band Neutrophils % (0-10) % Lymphocytes % (Manual) (20-40) % Atypical Lymphs % % Monocytes % (Manual) (2-10) % Eosinophils % (Manual) (0.8-7.0) % Basophils % (Manual) (0.2-1.2) Platelet Estimate RBC Morph Comment D-Dimer, Quantitative (0.19-0.50) mg/L Puncture Site ABG pH (7.35-7.45) ABG pCO2 (35.0-45.0) mmHg ABG pO2 (80.0-100.0) mmHg ABG HCO3 (22.0-26.0) meq/L ABG O2 Saturation (96.0-97.0) % ABG Base Excess (-2-2.0) Oskar Test A-a Gradient mmHg FiO2 (21.00-100.00) % Sodium 140 (136-145) mEq/L Potassium 3.4 L (3.5-5.1) mEq/L Chloride 103 (98-107) mEq/L Carbon Dioxide 31 (21-32) mEq/L Anion Gap 9.4 (5-15) BUN 18 (7-18) mg/dL Creatinine 1.3 (0.7-1.3) mg/dL Est Cr Clr Drug Dosing 48.40 mL/min Estimated GFR (MDRD) 55 (>60) mL/min BUN/Creatinine Ratio 13.8 L (14-18) Glucose 152 H (80-115) mg/dL Calcium 8.9 (8.5-10.1) mg/dL Total Bilirubin 0.4 (0.2-1.0) mg/dL AST 19 (15-37) U/L ALT 24 (16-63) U/L Alkaline Phosphatase 145 H (46-116) U/L Troponin I < 0.017 (0.00-0.056) ng/mL NT-Pro-B Natriuret Pep 499 H (0-125) pg/mL Total Protein 7.1 (6.4-8.2) g/dl Albumin 3.2 L (3.4-5.0) g/dl Globulin 3.9 gm/dL Albumin/Globulin Ratio 0.8 L (1-2) Meds: Medications Discontinued Medications Generic Name Dose Route Start Last Admin Trade Name Freq PRN Reason Stop Dose Admin Albuterol/Ipratropium 3 ml 04/26/18 10:00 04/26/18 10:08 Duoneb 3.0-0.5 Mg/3 Ml NEB 04/26/18 10:01 3 ml ONETIME ONE Administration - Re-Assessments/Exams Free Text/Narrative Re-Assessment/Exam: 04/26/18 09:05 Portable chest radiograph reviewed. The cardiac silhouette is enlarged. There is exaggeration on the right, consistent with his known dextrocardia. No pulmonary vascular congestion. No pleural effusions seen on this AP view. No focal infiltrate. No pneumothorax. There is hyperinflation and bilateral diaphragmatic flattening, consistent with COPD. Formal read per the Radiologist pending. 04/26/18 12:23 Test results discussed with the patient. Today's workup is grossly unremarkable. His ABG demonstrates a chronic respiratory alkalosis, and slight hypoxia. His CBC is normal, without an elevated WBC count. His renal function is normal. His troponin and D-dimer are negative, and his BNP is only slightly elevated. While the patient has diminished breath sounds and prolonged exhalation, he is not suffering from a COPD exacerbation. He does not have pneumonia. I suspect, based on his history, that he has a viral URI causing nasal congestion with postnasal drip, causing a cough. The patient would like me to prescribe both prednisone and antibiotic, however, I explained to the patient the downside of oral prednisone for COPD exacerbations (which he is not experiencing), that is, shortening of the patient's life if their life expectancy is greater than 2 years. I'm therefore not recommending prednisone. Additionally, I explained that the purpose for an antibiotic is to treat a bacterial infection, not a viral infection, and as such, I do not see an indication for an antibiotic. At one point, I offered to place the patient into Observation, but he declined. It took some time, but I was able to get the patient to understand. Departure - Departure Time of Disposition: 12:26 Disposition: Home, Self-Care 01 Condition: Fair Clinical Impression: Viral URI with cough - Discharge Information *PRESCRIPTION DRUG MONITORING PROGRAM REVIEWED*: Not Applicable *COPY OF PRESCRIPTION DRUG MONITORING REPORT IN PATIENT DANITZA: Not Applicable Instructions: Upper Respiratory Infection, Adult, [id number] Referrals: Ana Benjamin MD [Primary Care Provider] - Forms: ED Department Discharge Additional Instructions: You were seen in the emergency room for 2 weeks of a cough, sinus congestion, and shortness of breath when you exert yourself. Workup in the ER included blood work, an arterial blood gas, a chest x-ray, and an ECG. Your entire workup was unremarkable. You do not have pneumonia. You are not suffering from a COPD exacerbation. Based on your history, physical examination, and ER test, it appears that you have a viral URI with cough, also known as a common cold. As explained, unfortunately, there are no medicines to treat a common cold - it will have to run its course. As discussed, we do not recommend that you use your nasal steroid spray any greater than prescribed. As discussed, we do not recommend that you continue to take albuterol so frequently. Please [facility] at the next available appointment. If any other problems, please do not hesitate to return to the ER.
[2018-04-26] MEDS ORDERED: Albuterol/Ipratropium 3.0-0.5 MG/3 ML Neb Soln NEB ONE (10:00)
--- NOTE | 2018-04-26 14:35 | CR ---
Chest: Portable view of the chest was obtained. Comparison: Prior chest x-ray of 02/19/18. Heart is enlarged. Upper mediastinum is widened. These findings appear chronic. Tortuous thoracic aorta is seen. Lungs are clear and show no acute parenchymal change. Bony structures are grossly intact. Impression: 1. Stable cardiomegaly from prior exam. Nothing acute is appreciated on portable chest x-ray. Diagnostic code #2
== END 2018-04-26 12:37 | disposition home or self-care (01) ==
LOC: JD.ED 08:13
DX: J06.9 Acute upper respiratory infection, unspecified (principal); F17.210 Nicotine dependence, cigarettes, uncomplicated; I11.0 Hypertensive heart disease with heart failure; I48.91 Unspecified atrial fibrillation; I50.9 Heart failure, unspecified; I25.10 Atherosclerotic heart disease of native coronary artery without angina pectoris; I25.2 Old myocardial infarction; E78.00 Pure hypercholesterolemia, unspecified; F41.9 Anxiety disorder, unspecified; F32.9 Major depressive disorder, single episode, unspecified; Z88.8 Allergy status to other drugs, medicaments and biological substances; Z79.899 Other long term (current) drug therapy; Z79.01 Long term (current) use of anticoagulants; Z95.5 Presence of coronary angioplasty implant and graft
CPT/HCPCS: 36415; 36600; 71045; 71045-26; 80053; 82803; 83880; 84484; 85007; 85027; 85379; 93005; 94640; 99285-25; J7620-GY

== ENCOUNTER 2018-09-03 14:53 | Emergency (ER) | payer OTHER, MEDICARE ==
[2018-09-03 15:09] VITALS: BP 116/72
[2018-09-03] MEDS ORDERED: Benzonatate 100 MG Cap PO ONE (15:16)
[2018-09-03] MEDS ORDERED: Sodium Chloride 0.9% 10 ML Syringe FLUSH PRN (15:16)
[2018-09-03] MEDS ORDERED: Albuterol/Ipratropium 3.0-0.5 MG/3 ML Neb Soln NEB ONE (15:16)
[2018-09-03] MEDS ORDERED: Magnesium Sulfate/Water 2 GM in Premix Bag 1 BAG IV ONE (15:16)
--- NOTE | 2018-09-03 15:23 | EDM.PDOC ---
ED HPI GENERAL MEDICAL PROBLEM - General Chief Complaint: Chest Pain Stated Complaint: SOB AND CHEST PAIN Time Seen by Provider: 09/03/18 15:03 Source of Information: Reports: Patient History Limitations: Reports: No Limitations - History of Present Illness INITIAL COMMENTS - FREE TEXT/NARRATIVE: Patient is a 67-year-old male who presents the ED complaining of productive cough with clear and yellowish sputum, sinus congestion, shortness of breath, and intermittent chest pain with exertion. He does carry a history of COPD, A. fib, chronically anticoagulated, CAD, heart failure, hypercholesterolemia, hypertension, SD 5, dextrocardia, O2 dependence at night, and chronic kidney disease. Patient has extensive smoking history but quit as of recent. He states over the past 3 weeks he's been having intermittent episodes of flareups of shortness of breath with chest pain. He had chest pain this morning while preparing to mow his lawn. States the pain was to the left arm into the left anterior chest. Relieved with rest and also taking nitroglycerin. There was no diaphoresis, nausea/vomiting, orsensation was going to pass out, and/or any additional complaints at that time. He states as of recent the cough has worsened. He has a history of pneumonia quite some time ago and is concerned that he may have pneumonia since he's been experiencing night sweats with intermittent feeling of feeling flushed. He also notes that there is some pain with urination at times. He's been having difficulty with urinating. There has been no increase in weight or recent edema to his lower extremities. He denies any PND orthopnea. Prior to admission patient did take an albuterol neb treatment. He denies any chest pain. Treatments INSURANCE RISK SURVEYOR: Reports: Other (see below) Other Treatments INSURANCE RISK SURVEYOR: took nitro today one time Left Chest Pain Score (Numeric/FACES): 4 - Related Data Allergies Allergy/AdvReac Type Severity Reaction Status Date / Time acetaminophen [From Tylenol] Allergy Airway Verified 04/26/18 08:21 Tightness aspirin Allergy Airway Verified 04/26/18 08:21 Tightness horseradish Allergy Airway Verified 04/26/18 08:21 Tightness hydromorphone [From Dilaudid] Allergy Cardiac Verified 04/26/18 08:21 Arrest ibuprofen Allergy Airway Verified 04/26/18 08:21 Tightness meperidine HCl [From Demerol] Allergy Airway Verified 04/26/18 08:21 Tightness morphine Allergy Itching Verified 04/26/18 08:21 oxycodone Allergy Rash Verified 04/26/18 08:21 sumatriptan [From Imitrex] Allergy Cannot Verified 04/26/18 08:21 Remember sumatriptan succinate Allergy Cannot Verified 04/26/18 08:21 [From Imitrex] Remember guaifenesin [From Mucinex] AdvReac Tachycardia Verified 04/26/18 08:21 haloperidol [From Haldol] AdvReac Change Verified 04/26/18 08:21 Mental Status haloperidol lactate AdvReac Change Verified 04/26/18 08:21 [From Haldol] Mental Status ketorolac tromethamine AdvReac Change Verified 04/26/18 08:21 [From Toradol] Mental Status antihistamines Allergy Airway Uncoded 04/26/18 08:21 Tightness Home Meds: Home Meds Clopidogrel [Plavix] 75 mg PO DAILY 04/12/14 [History] Furosemide [Lasix] 40 mg PO DAILY 04/12/14 [History] PARoxetine HCl [Paxil] 20 mg PO DAILY 04/12/14 [History] Potassium Chloride 10 meq PO BID 04/12/14 [History] Tamsulosin HCl [Flomax] 0.4 mg PO BID 04/12/14 [History] Tiotropium [Spiriva HandiHaler] 1 cap INH DAILY 04/12/14 [History] ClonazePAM [KlonoPIN] 0.5 mg PO QAM 02/03/15 [History] Simvastatin [Zocor] 20 mg PO BEDTIME 02/03/15 [History] Apixaban [Eliquis] 5 mg PO BID 01/23/16 [History] Budesonide/Formoterol [Symbicort 160-4.5 MCG] 2 puff INH BID 01/23/16 [History] Verapamil [Calan SR] 120 mg PO BID 01/23/16 [History] Albuterol Sulfate 1 vial INH Q6H 10/18/16 [History] Albuterol Sulfate [Proair Respiclick] 2 puff INH Q4H PRN 10/18/16 [History] ClonazePAM [KlonoPIN] 1 mg PO BEDTIME 10/18/16 [History] Ipratropium Huffman 1 spray NASBOTH BID 10/18/16 [History] Ranitidine [Zantac] 300 mg PO QAM 10/18/16 [History] Cholecalciferol (Vitamin D3) [Vitamin D] 1,000 unit PO BID 04/13/17 [History] Mirtazapine 30 mg PO BEDTIME 04/13/17 [History] Magnesium Oxide 420 mg PO DAILY 02/19/18 [History] Benzonatate [Tessalon Perle] 100 mg PO TID PRN #21 capsule 09/03/18 [Rx] Levofloxacin [Levaquin] 750 mg PO QAM #4 tablet 09/03/18 [Rx] predniSONE [Prednisone] 2 tab PO QAM #10 tablet 09/03/18 [Rx] Past Medical History HEENT History: Reports: Impaired Vision Other HEENT History: wears eyeglasses and upper dentures Cardiovascular History: Reports: Afib, CAD, Heart Failure, High Cholesterol, Hypertension, SD, Other (See Below) Other Cardiovascular History: on coumadin, stents in 1999, 5 SD, and Afib Respiratory History: Reports: COPD, Sleep Apnea Gastrointestinal History: Reports: GERD, PUD Genitourinary History: Reports: Acute Renal Failure, BPH Musculoskeletal History: Reports: None Neurological History: Reports: Headaches, Chronic Psychiatric History: Reports: Anxiety, Depression Endocrine/Metabolic History: Reports: Obesity/BMI 30+, Other (See Below) Other Endocrine/Metabolic History: boardline diabetic- checks AM BS daily - Infectious Disease History Infectious Disease History: Reports: Chicken Pox, Measles, Mumps - Past Surgical History HEENT Surgical History: Reports: Cataract Surgery Cardiovascular Surgical History: Reports: Coronary Artery Stent GI Surgical History: Reports: Appendectomy Male Surgical History: Reports: Prostate Biopsy Musculoskeletal Surgical History: Reports: Hip Replacement Social & Family History - Family History Family Medical History: Noncontributory Oncologic: Reports: Leukemia Other Oncologic Family History: Brother - Tobacco Use Smoking Status *Q: Former Smoker Used Tobacco, but Quit: Yes Month/Year Tobacco Last Used: 10 years - Caffeine Use Caffeine Use: Reports: Coffee Other Caffeine Use: 2/day - Living Situation & Occupation Living situation: Reports: , with Spouse Occupation: Retired ED ROS GENERAL - Review of Systems Review Of Systems: ROS reveals no pertinent complaints other than HPI. ED EXAM, GENERAL - Physical Exam Exam: See Below Exam Limited By: Respiratory Distress General Appearance: Alert, WD/WN, Moderate Distress Eye Exam: Bilateral Eye: Normal Inspection Ears: Hearing Grossly Normal Nose: Normal Inspection Throat/Mouth: Normal Voice, No Airway Compromise Respiratory/Chest: No Respiratory Distress, Lungs Clear (Right lung field), No Accessory Muscle Use, Chest Non-Tender, Wheezing (Left lower lung dave) Cardiovascular: Normal Peripheral Pulses, No Edema, No JVD, Systolic Murmur ( Rated 2 out of 6), Irregularly Irregular Peripheral Pulses: 2+: Radial (L), Radial (R) GI/Abdominal: Normal Bowel Sounds, Soft, Non-Tender, No Organomegaly, No Distention, Other (Obese) Back Exam: Normal Inspection. No: CVA Tenderness (L), CVA Tenderness (R) Extremities: Normal Inspection, Non-Tender, No Pedal Edema Neurological: Alert, Oriented, CN II-XII Intact, Normal Cognition, No Motor/ Sensory Deficits Psychiatric: Normal Affect, Normal Mood Skin Exam: Warm, Dry, Intact, Normal Color, No Rash Course - Vital Signs Last Recorded V/S: Last Vital Signs Temp 97.3 F 09/03/18 15:04 Pulse 88 09/03/18 15:04 Resp 27 H 09/03/18 15:04 BP 116/72 09/03/18 15:04 Pulse Ox 91 L 09/03/18 15:17 - Orders/Labs/Meds Orders: Active Orders 24 hr Category Date Time Status Peripheral IV Care [RC] . DIRECTED Care 09/03/18 15:16 Active RT Aerosol Therapy [RC] ASDIRECTED Care 09/03/18 15:17 Active CXR [Chest 1V Frontal] [CR] Stat Exams 09/03/18 15:39 Taken CULTURE BLOOD [BC] Stat Lab 09/03/18 15:40 Received CULTURE BLOOD [BC] Stat Lab 09/03/18 15:45 Received Blood Culture x2 Reflex Set [OM.PC] Stat Oth 09/03/18 15:16 Ordered Peripheral IV Insertion Adult [OM.PC] Routine Oth 09/03/18 15:16 Ordered Labs: Laboratory Tests 09/03/18 09/03/18 09/03/18 Range/Units 15:10 15:10 15:10 WBC 9.99 H (4.23-9.07) K/mm3 RBC 4.74 (4.63-6.08) M/mm3 Hgb 15.1 (13.7-17.5) gm/L Hct 46.6 (40.1-51.0) % MCV 98.3 H (79.0-92.2) fl MCH 31.9 (25.7-32.2) pg MCHC 32.4 (32.2-35.5) g/dl RDW Std Deviation 51.6 H (35.1-43.9) fL Plt Count 206 (163-337) K/mm3 MPV 9.5 (9.4-12.3) fl Neutrophils % (Manual) 80 H (40-60) % Band Neutrophils % 0 (0-10) % Lymphocytes % (Manual) 12 L (20-40) % Atypical Lymphs % 0 % Monocytes % (Manual) 4 (2-10) % Eosinophils % (Manual) 4 (0.8-7.0) % Basophils % (Manual) 0 L (0.2-1.2) Platelet Estimate Adequate RBC Morph Comment Normal PT 10.6 (9.5-12.1) SECONDS INR 0.97 APTT 29 (24-31) SECONDS Sodium 141 (136-145) mEq/L Potassium 3.6 (3.5-5.1) mEq/L Chloride 102 (98-107) mEq/L Carbon Dioxide 27 (21-32) mEq/L Anion Gap 15.6 H (5-15) BUN 13 (7-18) mg/dL Creatinine 1.5 H (0.7-1.3) mg/dL Est Cr Clr Drug Dosing 43.45 mL/min Estimated GFR (MDRD) 46 (>60) mL/min BUN/Creatinine Ratio 8.7 L (14-18) Glucose 156 H (80-115) mg/dL Lactic Acid (0.4-2.0) mmol/L Calcium 9.0 (8.5-10.1) mg/dL Magnesium 1.8 (1.8-2.4) mg/dl Total Bilirubin 0.7 (0.2-1.0) mg/dL AST 18 (15-37) U/L ALT 24 (16-63) U/L Alkaline Phosphatase 135 H (46-116) U/L Troponin I < 0.017 (0.00-0.056) ng/mL C-Reactive Protein 1.4 H* (<1.0) mg/dL NT-Pro-B Natriuret Pep (0-125) pg/mL Total Protein 7.0 (6.4-8.2) g/dl Albumin 3.5 (3.4-5.0) g/dl Globulin 3.5 gm/dL Albumin/Globulin Ratio 1.0 (1-2) Mycoplasma pneumon IgM Negative (NEGATIVE) 09/03/18 09/03/18 Range/Units 15:10 15:10 WBC (4.23-9.07) K/mm3 RBC (4.63-6.08) M/mm3 Hgb (13.7-17.5) gm/L Hct (40.1-51.0) % MCV (79.0-92.2) fl MCH (25.7-32.2) pg MCHC (32.2-35.5) g/dl RDW Std Deviation (35.1-43.9) fL Plt Count (163-337) K/mm3 MPV (9.4-12.3) fl Neutrophils % (Manual) (40-60) % Band Neutrophils % (0-10) % Lymphocytes % (Manual) (20-40) % Atypical Lymphs % % Monocytes % (Manual) (2-10) % Eosinophils % (Manual) (0.8-7.0) % Basophils % (Manual) (0.2-1.2) Platelet Estimate RBC Morph Comment PT (9.5-12.1) SECONDS INR APTT (24-31) SECONDS Sodium (136-145) mEq/L Potassium (3.5-5.1) mEq/L Chloride (98-107) mEq/L Carbon Dioxide (21-32) mEq/L Anion Gap (5-15) BUN (7-18) mg/dL Creatinine (0.7-1.3) mg/dL Est Cr Clr Drug Dosing mL/min Estimated GFR (MDRD) (>60) mL/min BUN/Creatinine Ratio (14-18) Glucose (80-115) mg/dL Lactic Acid 1.3 (0.4-2.0) mmol/L Calcium (8.5-10.1) mg/dL Magnesium (1.8-2.4) mg/dl Total Bilirubin (0.2-1.0) mg/dL AST (15-37) U/L ALT (16-63) U/L Alkaline Phosphatase (46-116) U/L Troponin I (0.00-0.056) ng/mL C-Reactive Protein (<1.0) mg/dL NT-Pro-B Natriuret Pep 693 H (0-125) pg/mL Total Protein (6.4-8.2) g/dl Albumin (3.4-5.0) g/dl Globulin gm/dL Albumin/Globulin Ratio (1-2) Mycoplasma pneumon IgM (NEGATIVE) Meds: Medications Discontinued Medications Generic Name Dose Route Start Last Admin Trade Name Freq PRN Reason Stop Dose Admin Albuterol/Ipratropium 3 ml 09/03/18 15:16 09/03/18 15:35 Duoneb 3.0-0.5 Mg/3 Ml NEB 09/03/18 15:17 3 ml ONETIME ONE Administration Benzonatate 200 mg 09/03/18 15:16 09/03/18 16:21 Tessalon Perles PO 09/03/18 15:17 200 mg ONETIME ONE Administration Magnesium Sulfate 2 gm/ Premix 50 mls @ 25 mls/hr 09/03/18 15:16 09/03/18 15: 33 IV 09/03/18 17:15 25 mls/hr ONETIME ONE Administration Levofloxacin 750 mg 09/03/18 16:30 09/03/18 16:38 Levaquin PO 09/03/18 16:31 750 mg ONETIME ONE Administration Methylprednisolone Sodium Succinate 125 mg 09/03/18 16:07 09/03/18 16:18 Solu-Medrol IVPUSH 09/03/18 16:08 125 mg ONETIME ONE Administration Sodium Chloride 10 ml 09/03/18 15:16 09/03/18 15:10 Saline Flush FLUSH 10 ml ASDIRECTED PRN Administration Keep Vein Open - Re-Assessments/Exams Free Text/Narrative Re-Assessment/Exam: Patient is coughing quite heavily. O2 sats 91-89%. Patient is able to speak clearly with no signs of shortness of breath when not coughing.Ordered IV. Magnesium 2 g IV. DuoNeb 1. Tessalon Perles 200 mg by mouth. Reviewed chest x-ray: Patient has dextrocardia. No significant increase in pulmonary vascular congestion. No findings for pulmonary infiltrate. No significant change from previous chest x-ray obtained April 2018. Reviewed with Dr. Hope and he agrees. Final interpretation is pending. Labs reviewed: White blood cell count 9.99, hemoglobin 15.1, platelet count 206 , neutrophil percentage is 80, bands nothing. Sodium 141, potassium 3.6, CO2 27 , Hgb 15.6, creatinine 1.5, glucose 156, troponin within normal limits, CRP 1.4. Pro-BNP is 693. Further review previous labs patient is ranged from 380- 889. On exam patient does not appear to be fluid overloaded. 1616 Reassessment, patient resting comfortably in bed. Cough has improved with the administration of the DuoNeb and magnesium. I have ordered some Medrol 125 mg IV. He has not received the Tessalon Perles yet. I have discussed with the patient that he needs to be evaluated by cardiology in relation to the pain to his arm into the anterior chest. He states the discomfort is more likely related to his lungs. I have offered to admit the patient for exacerbation of COPD to which he refuses. Vital signs have been stable. Patient's SPO2 has ranged from 89-91%. He states normally his O2 sats are 90%. Plan will be to send him home with short course of steroids, Tessalon Perles, and Levaquin upon discharge for exacerbation of COPD. Departure - Departure Time of Disposition: 16:23 Disposition: Home, Self-Care 01 Condition: Good Clinical Impression: COPD exacerbation, COPD exacerbation - Discharge Information Prescriptions: Benzonatate [Tessalon Perle] 100 mg PO TID PRN #21 capsule PRN Reason: Cough Levofloxacin [Levaquin] 750 mg PO QAM #4 tablet predniSONE [Prednisone] 2 tab PO QAM #10 tablet Instructions: Chronic Obstructive Pulmonary Disease Exacerbation, [id number] Referrals: Ana Benjamin MD [Primary Care Provider] - Forms: ED Department Discharge Additional Instructions: Continue taking all your home medications including your respiratory meds as prescribed. I have added prednisone 40 mg every day for the next 5 days. Take Tessalon Perles one tab 3 times a day for cough. Take Levaquin 750 mg every day for the next 4 days. Please call and make an appointment to see your PCP the first part of next week. Please return back to the ED if you develop any new or worsening symptoms. - My Orders Last 24 Hours: My Active Orders 09/03/18 15:16 Peripheral IV Care [RC] . DIRECTED Blood Culture x2 Reflex Set [OM.PC] Stat Peripheral IV Insertion Adult [OM.PC] Routine 09/03/18 15:17 RT Aerosol Therapy [RC] ASDIRECTED 09/03/18 15:39 CXR [Chest 1V Frontal] [CR] Stat 09/03/18 15:40 CULTURE BLOOD [BC] Stat 09/03/18 15:45 CULTURE BLOOD [BC] Stat - Assessment/Plan Last 24 Hours: My Active Orders 09/03/18 15:16 Peripheral IV Care [RC] . DIRECTED Blood Culture x2 Reflex Set [OM.PC] Stat Peripheral IV Insertion Adult [OM.PC] Routine 09/03/18 15:17 RT Aerosol Therapy [RC] ASDIRECTED 09/03/18 15:39 CXR [Chest 1V Frontal] [CR] Stat 09/03/18 15:40 CULTURE BLOOD [BC] Stat 09/03/18 15:45 CULTURE BLOOD [BC] Stat
[2018-09-03] MEDS ORDERED: methylPREDNISolone Sodium Succinate 125 MG/2 ML SDV IVPUSH ONE (16:07)
[2018-09-03] MEDS ORDERED: Levofloxacin 750 MG Tab PO ONE (16:30)
--- NOTE | 2018-09-06 09:09 | CR ---
Chest: Portable view of the chest was obtained. Comparison: Prior chest x-ray of 04/26/18. Heart is enlarged with prominent right cardiac margin. This cardiac findings is stable from prior exam. Tortuous thoracic aorta is seen. Slight scarring is seen within the lungs. No acute parenchymal change or acute pulmonary vascular congestion is seen. Bony structure show scoliosis with the spine. Impression: 1. Findings as noted above which appear stable. Nothing acute is appreciated. Diagnostic code #2
== END 2018-09-03 17:24 | disposition home or self-care (01) ==
LOC: JD.ED 14:53
DX: J44.1 Chronic obstructive pulmonary disease with (acute) exacerbation (principal); I13.0 Hypertensive heart and chronic kidney disease with heart failure and stage 1 through stage 4 chronic kidney disease, or unspecified chronic kidney disease; I50.9 Heart failure, unspecified; N18.9 Chronic kidney disease, unspecified; I25.2 Old myocardial infarction; E66.9 Obesity, unspecified; F41.9 Anxiety disorder, unspecified; Z98.49 Cataract extraction status, unspecified eye; F32.9 Major depressive disorder, single episode, unspecified; I48.91 Unspecified atrial fibrillation; Z95.5 Presence of coronary angioplasty implant and graft; Z90.49 Acquired absence of other specified parts of digestive tract; Z88.6 Allergy status to analgesic agent; Z88.5 Allergy status to narcotic agent; Z88.8 Allergy status to other drugs, medicaments and biological substances; Z79.899 Other long term (current) drug therapy; Z87.891 Personal history of nicotine dependence
CPT/HCPCS: 36415; 71045; 80053; 83605; 83735; 83880; 84484; 85007; 85027; 85610; 85730; 86140; 86738; 87040; 94640; 96365; 96366; 99285; A9270; J2930; J3475; 99284; J7620-GY

== ENCOUNTER 2018-09-11 04:23 | Inpatient (IN) | payer MEDICARE, OTHER ==
[2018-09-11] MEDS ORDERED: Nitroglycerin 0.4 MG Tab.SL SL PRN (04:38)
[2018-09-11] MEDS ORDERED: Albuterol/Ipratropium 3.0-0.5 MG/3 ML Neb Soln ONE (04:40)
[2018-09-11] MEDS ORDERED: Albuterol/Ipratropium 3.0-0.5 MG/3 ML Neb Soln NEB ONE ×2 (04:40→05:12)
--- NOTE | 2018-09-11 04:43 | EDM.PDOC ---
<AllyJuancho Bhargavi - Last Filed: 09/11/18 05:45> ED HPI GENERAL MEDICAL PROBLEM - General Chief Complaint: Respiratory Problem Stated Complaint: [facility] Time Seen by Provider: 09/11/18 04:28 - History of Present Illness INITIAL COMMENTS - FREE TEXT/NARRATIVE: 67-year-old male presents emergency room with shortness of breath and chest discomfort This started about a week ago but really got worse over the last couple of days. Patient was seen here on the was given Levaquin and steroids and they did not seem to help much. The patient's had some good days and bad days since then but yesterday every time he tried to get up within taking a few steps he was severely short of breath. Patient has severe lung disease he uses C Pap with oxygen at night he uses home nebulizers. He denies any fevers or chills he gets some intermittent left arm pain when his breathing is really problematic however no significant chest discomfort patient has a long history of smoking but did quit he has chronic A. fib and has had multiple MIs in the past he is anticoagulated with Eliquis. Left Arm Pain Score (Numeric/FACES): 6 - Related Data Allergies Allergy/AdvReac Type Severity Reaction Status Date / Time acetaminophen [From Tylenol] Allergy Airway Verified 09/11/18 05:26 Tightness aspirin Allergy Airway Verified 09/11/18 05:26 Tightness horseradish Allergy Airway Verified 09/11/18 05:26 Tightness hydromorphone [From Dilaudid] Allergy Cardiac Verified 09/11/18 05:26 Arrest ibuprofen Allergy Airway Verified 09/11/18 05:26 Tightness meperidine HCl [From Demerol] Allergy Airway Verified 09/11/18 05:26 Tightness morphine Allergy Itching Verified 09/11/18 05:26 oxycodone Allergy Rash Verified 09/11/18 05:26 sumatriptan [From Imitrex] Allergy Cannot Verified 09/11/18 05:26 Remember sumatriptan succinate Allergy Cannot Verified 09/11/18 05:26 [From Imitrex] Remember guaifenesin [From Mucinex] AdvReac Tachycardia Verified 09/11/18 05:26 haloperidol [From Haldol] AdvReac Change Verified 09/11/18 05:26 Mental Status haloperidol lactate AdvReac Change Verified 09/11/18 05:26 [From Haldol] Mental Status ketorolac tromethamine AdvReac Change Verified 09/11/18 05:26 [From Toradol] Mental Status antihistamines Allergy Airway Uncoded 09/11/18 05:26 Tightness Home Meds: Home Meds Clopidogrel [Plavix] 75 mg PO DAILY 04/12/14 [History] Furosemide [Lasix] 40 mg PO DAILY 04/12/14 [History] PARoxetine HCl [Paxil] 20 mg PO DAILY 04/12/14 [History] Potassium Chloride 10 meq PO BID 04/12/14 [History] Tamsulosin HCl [Flomax] 0.4 mg PO BID 04/12/14 [History] Tiotropium [Spiriva HandiHaler] 1 cap INH DAILY 04/12/14 [History] ClonazePAM [KlonoPIN] 0.5 mg PO QAM 02/03/15 [History] Simvastatin [Zocor] 20 mg PO BEDTIME 02/03/15 [History] Apixaban [Eliquis] 5 mg PO BID 01/23/16 [History] Budesonide/Formoterol [Symbicort 160-4.5 MCG] 2 puff INH BID 01/23/16 [History] Verapamil [Calan SR] 120 mg PO BID 01/23/16 [History] Albuterol Sulfate 1 vial INH Q6H 10/18/16 [History] Albuterol Sulfate [Proair Respiclick] 2 puff INH Q4H PRN 10/18/16 [History] ClonazePAM [KlonoPIN] 1 mg PO BEDTIME 10/18/16 [History] Ipratropium [place] 1 spray NASBOTH BID 10/18/16 [History] Ranitidine [Zantac] 300 mg PO QAM 10/18/16 [History] Cholecalciferol (Vitamin D3) [Vitamin D] 1,000 unit PO BID 04/13/17 [History] Mirtazapine 30 mg PO BEDTIME 04/13/17 [History] Magnesium Oxide 420 mg PO DAILY 02/19/18 [History] Benzonatate [Tessalon Perle] 100 mg PO TID PRN #21 capsule 09/03/18 [Rx] Past Medical History HEENT History: Reports: Impaired Vision Other HEENT History: wears eyeglasses and upper dentures Cardiovascular History: Reports: Afib, CAD, Heart Failure, High Cholesterol, Hypertension, DC, Other (See Below) Other Cardiovascular History: on coumadin, stents in 2000, 5 DC, and Afib Respiratory History: Reports: COPD, Sleep Apnea Gastrointestinal History: Reports: GERD, PUD Genitourinary History: Reports: Acute Renal Failure, BPH Musculoskeletal History: Reports: None Neurological History: Reports: Headaches, Chronic Psychiatric History: Reports: Anxiety, Depression Endocrine/Metabolic History: Reports: Obesity/BMI 30+, Other (See Below) Other Endocrine/Metabolic History: boardline diabetic- checks AM BS daily - Infectious Disease History Infectious Disease History: Reports: Chicken Pox, Measles, Mumps - Past Surgical History HEENT Surgical History: Reports: Cataract Surgery Cardiovascular Surgical History: Reports: Coronary Artery Stent GI Surgical History: Reports: Appendectomy Male Surgical History: Reports: Prostate Biopsy Musculoskeletal Surgical History: Reports: Hip Replacement Social & Family History - Family History Family Medical History: Noncontributory Oncologic: Reports: Leukemia Other Oncologic Family History: Brother - Caffeine Use Caffeine Use: Reports: Coffee Other Caffeine Use: 2/day - Living Situation & Occupation Living situation: Reports: , with Spouse Occupation: Retired ED ROS GENERAL - Review of Systems Constitutional: Denies: Fever, Chills HEENT: Reports: No Symptoms Respiratory: Reports: Shortness of Breath, Wheezing, Cough, Sputum Cardiovascular: Reports: Other (Left arm pain) GI/Abdominal: Reports: Distension. Denies: No Symptoms, Abdominal Pain, Constipation, Diarrhea, Nausea, Vomiting : Reports: No Symptoms Musculoskeletal: Reports: No Symptoms Skin: Reports: No Symptoms Neurological: Reports: No Symptoms Psychiatric: Reports: No Symptoms Hematologic/Lymphatic: Reports: No Symptoms ED EXAM, GENERAL - Physical Exam Exam: See Below Exam Limited By: Other (Patient brought in by EMS on a nonrebreather 15 L this of rapidly decreased to nasal cannula without significant decompensation in his O2 saturation. He was quite to With a respiratory rate of 30 when he arrived his pulses mildly tachycardic at 102 he was having some left arm pain) General Appearance: Alert, Mild Distress (From the dyspnea) Head: Atraumatic, Normocephalic Neck: Normal Inspection, Supple, Non-Tender, Full Range of Motion Respiratory/Chest: Decreased Breath Sounds, Crackles, Wheezing, Prolonged Expiration, Other (Initial DuoNeb treatment really improved his air movement diminished a few wheezes he has significant coarse breath sounds) Cardiovascular: Normal Peripheral Pulses, No Murmur, Irregularly Irregular, Other (1+ pitting edema) GI/Abdominal: Normal Bowel Sounds, Soft, Non-Tender, Distended Back Exam: Normal Inspection, Full Range of Motion. No: CVA Tenderness (L), CVA Tenderness (R) Extremities: Normal Inspection, Pedal Edema (1+ pitting) Neurological: Alert, Oriented, Normal Cognition Psychiatric: Anxious (This improved as his breathing improved) Course - Vital Signs Last Recorded V/S: Last Vital Signs Temp 97.7 F 09/11/18 04:28 Pulse 102 H 09/11/18 04:28 Resp 30 H 09/11/18 04:28 BP 108/71 09/11/18 04:28 Pulse Ox 95 09/11/18 05:19 - Orders/Labs/Meds Orders: Active Orders 24 hr Category Date Time Status EKG Documentation Completion [RC] STAT Care 09/11/18 04:41 Active EKG Documentation Completion [RC] URGENT Care 09/11/18 05:25 Active RT Aerosol Therapy [RC] ASDIRECTED Care 09/11/18 04:41 Active RT Aerosol Therapy [RC] ASDIRECTED Care 09/11/18 05:13 Active Chest 1V Frontal [CR] Stat Exams 09/11/18 04:41 Taken CULTURE BLOOD [BC] Stat Lab 09/11/18 06:55 Received CULTURE SPUTUM + SMEAR [RM] Stat Lab 09/11/18 06:45 Received Nitroglycerin [Nitrostat] Med 09/11/18 04:38 Active 0.4 mg SL Q5M PRN Medication Orders Nitroglycerin (Nitrostat) 0.4 mg SL Q5M PRN PRN Reason: Chest Pain Labs: Laboratory Tests 09/11/18 09/11/18 09/11/18 Range/Units 04:50 04:50 04:50 WBC 11.17 H (4.23-9.07) K/mm3 RBC 4.41 L (4.63-6.08) M/mm3 Hgb 14.3 (13.7-17.5) gm/L Hct 44.2 (40.1-51.0) % MCV 100.2 H (79.0-92.2) fl MCH 32.4 H (25.7-32.2) pg MCHC 32.4 (32.2-35.5) g/dl RDW Std Deviation 52.4 H (35.1-43.9) fL Plt Count 171 (163-337) K/mm3 MPV 9.3 L (9.4-12.3) fl Neutrophils % (Manual) 77 H (40-60) % Band Neutrophils % 0 (0-10) % Lymphocytes % (Manual) 14 L (20-40) % Atypical Lymphs % 0 % Monocytes % (Manual) 8 (2-10) % Eosinophils % (Manual) 1 (0.8-7.0) % Basophils % (Manual) 0 L (0.2-1.2) Toxic Granulation 1+ slight Platelet Estimate Adequate Plt Morphology Comment Normal Anisocytosis 2+ moderate Macrocytosis 2+ moderate RBC Morph Comment Not Reportable PT 10.1 (9.5-12.1) SECONDS INR 0.93 APTT 24 (24-31) SECONDS Sodium 142 (136-145) mEq/L Potassium 3.8 (3.5-5.1) mEq/L Chloride 103 (98-107) mEq/L Carbon Dioxide 30 (21-32) mEq/L Anion Gap 12.8 (5-15) BUN 32 H (7-18) mg/dL Creatinine 1.4 H (0.7-1.3) mg/dL Est Cr Clr Drug Dosing 44.94 mL/min Estimated GFR (MDRD) 50 (>60) mL/min BUN/Creatinine Ratio 22.9 H (14-18) Glucose 173 H (80-115) mg/dL Calcium 9.0 (8.5-10.1) mg/dL Total Bilirubin 0.4 (0.2-1.0) mg/dL AST 16 (15-37) U/L ALT 31 (16-63) U/L Alkaline Phosphatase 144 H (46-116) U/L Troponin I < 0.017 (0.00-0.056) ng/mL NT-Pro-B Natriuret Pep (0-125) pg/mL Total Protein 6.1 L (6.4-8.2) g/dl Albumin 3.0 L (3.4-5.0) g/dl Globulin 3.1 gm/dL Albumin/Globulin Ratio 1.0 (1-2) 06/08/19 06/08/19 Range/Units 04:50 06:45 WBC (4.23-9.07) K/mm3 RBC (4.63-6.08) M/mm3 Hgb (13.7-17.5) gm/L Hct (40.1-51.0) % MCV (79.0-92.2) fl MCH (25.7-32.2) pg MCHC (32.2-35.5) g/dl RDW Std Deviation (35.1-43.9) fL Plt Count (163-337) K/mm3 MPV (9.4-12.3) fl Neutrophils % (Manual) (40-60) % Band Neutrophils % (0-10) % Lymphocytes % (Manual) (20-40) % Atypical Lymphs % % Monocytes % (Manual) (2-10) % Eosinophils % (Manual) (0.8-7.0) % Basophils % (Manual) (0.2-1.2) Toxic Granulation Platelet Estimate Plt Morphology Comment Anisocytosis Macrocytosis RBC Morph Comment PT (9.5-12.1) SECONDS INR APTT (24-31) SECONDS Sodium (136-145) mEq/L Potassium (3.5-5.1) mEq/L Chloride (98-107) mEq/L Carbon Dioxide (21-32) mEq/L Anion Gap (5-15) BUN (7-18) mg/dL Creatinine (0.7-1.3) mg/dL Est Cr Clr Drug Dosing mL/min Estimated GFR (MDRD) (>60) mL/min BUN/Creatinine Ratio (14-18) Glucose (80-115) mg/dL Calcium (8.5-10.1) mg/dL Total Bilirubin (0.2-1.0) mg/dL AST (15-37) U/L ALT (16-63) U/L Alkaline Phosphatase (46-116) U/L Troponin I < 0.017 (0.00-0.056) ng/mL NT-Pro-B Natriuret Pep 606 H (0-125) pg/mL Total Protein (6.4-8.2) g/dl Albumin (3.4-5.0) g/dl Globulin gm/dL Albumin/Globulin Ratio (1-2) Meds: Medications Generic Name Dose Route Start Last Admin Trade Name Freq PRN Reason Stop Dose Admin Nitroglycerin 0.4 mg 09/11/18 04:38 Nitrostat SL Q5M PRN Chest Pain Discontinued Medications Generic Name Dose Route Start Last Admin Trade Name Freq PRN Reason Stop Dose Admin Albuterol/Ipratropium 3 ml 09/11/18 04:40 09/11/18 04:42 Duoneb 3.0-0.5 Mg/3 Ml NEB 09/11/18 04:41 3 ml ONETIME ONE Administration Albuterol/Ipratropium Confirm 09/11/18 04:40 09/11/18 05:05 Duoneb 3.0-0.5 Mg/3 Ml Administered 09/11/18 04:41 Not Given Dose 3 ml .ROUTE .STK-MED ONE Albuterol/Ipratropium 3 ml 09/11/18 05:12 09/11/18 05:17 Duoneb 3.0-0.5 Mg/3 Ml NEB 09/11/18 05:13 3 ml ONETIME ONE Administration Ceftriaxone Sodium 1 gm/ 100 mls @ 200 mls/hr 09/11/18 06:52 09/11/18 07:17 Sodium Chloride IV 09/11/18 07:21 200 mls/hr ONETIME ONE Administration Methylprednisolone Sodium Succinate 125 mg 09/11/18 04:46 09/11/18 05:03 Solu-Medrol IVPUSH 09/11/18 04:47 125 mg ONETIME ONE Administration - Re-Assessments/Exams Free Text/Narrative Re-Assessment/Exam: 09/11/18 05:45 A she is doing much better after 2 nebulizer treatments. Changes shift Dr. Hope will assume care. Further disposition and workup per Dr. Hope Departure - Departure Disposition: Admitted As Inpatient 64 Clinical Impression: COLD, Chronic obstructive lung disease Pneumonia Qualifiers: Pneumonia type: due to unspecified organism Laterality: bilateral Lung location : lower lobe of lung Qualified Code(s): J18.1 - Lobar pneumonia, unspecified organism Atrial fibrillation Qualifiers: Atrial fibrillation type: chronic Qualified Code(s): I48.2 - Chronic atrial fibrillation - Discharge Information - My Orders Last 24 Hours: My Active Orders 09/11/18 06:45 CULTURE SPUTUM + SMEAR [RM] Stat 09/11/18 06:55 CULTURE BLOOD [BC] Stat - Assessment/Plan Last 24 Hours: My Active Orders 09/11/18 06:45 CULTURE SPUTUM + SMEAR [RM] Stat 09/11/18 06:55 CULTURE BLOOD [BC] Stat <Sam Hope L - Last Filed: 09/11/18 08:55> ED ROS GENERAL - Review of Systems Review Of Systems: See Below Course - Re-Assessments/Exams Free Text/Narrative Re-Assessment/Exam: 09/11/18 06:30. Have assumed care from Dr Canales after change of shift. Hx and exam as documented by Dr Canales. He is resting and breathing more comfortably after albuterol nebs, IV solumedrol. Initial trop has come back normal, other labs relatively normal. CXR shows stable cardiomegally, does not vinicius acute failure but does show a small RLL infiltrate that is new from CXR of 8 or 9 days ago. He states his cough has worsened over the past week and especially the past few days along with his worsening difficulty breathing. Have ordered repeat 2 hr troponin. Have ordered Blood culture times 1. Will order rocephin 1 gram IV. With his failure to do OK at home and now pneumonia he will need to be admitted for further treatment. 09/11/18 08:00 repeat trop also neg. Sats are good, 95 % on 2 l NC. Departure - Departure Time of Disposition: 08:10 Condition: Fair ED Communication - Discussed Case With (1) Discussed Case With (1): Admitting Provider (Dr Almaguer, decision to admit at about 08:10)
[2018-09-11] MEDS ORDERED: methylPREDNISolone Sodium Succinate 125 MG/2 ML SDV IVPUSH ONE (04:46)
[2018-09-11] MEDS ORDERED: cefTRIAXone 1 GM in Sodium Chloride 0.9% 100 ML IV ONE (06:52)
[2018-09-11] MEDS: Albuterol/Ipratropium 3.0-0.5 MG/3 ML Neb Soln NEB SCH ×3 (14:01→20:16)
[2018-09-11] MEDS ORDERED: Albuterol 6.7 GM Inhaler INH PRN (14:29)
[2018-09-11] MEDS ORDERED: Ipratropium 0.06% Nasal Spray 15 ML Bottle NASBOTH PRN (14:29)
--- NOTE | 2018-09-11 16:05 | HP ---
DATE OF ADMISSION: 09/11/2018 HISTORY OF PRESENT ILLNESS: The patient is a 67-year-old male born on 1950, who is admitted after presenting to the ER in severe respiratory distress at approximately 5:45 a.m. The patient states he has been having increasing breathing problems for about a week. He is a long-standing COPD patient with a history of oxygen dependence and continued use of nebulizer. He was seen approximately a week ago in the ER and at that time was started on Levaquin and oral steroids, but he states he did not really stabilize very much and he is continued to get worse over the past couple days and then last night became severe. He was able to sit up on his bed last night, but when he tried to get up and take a few steps, he felt like he was going to pass out. The patient states he has no fever or chills. He is coughing, and his coughing has caused him some left chest, shoulder, and arm pain. He feels like his head is going to blow off when he coughs, he states. The patient is not able to lay back and is unable to catch his breath. The patient has had multiple admissions because of chronic atrial fibrillation, heart failure, and cor pulmonale. The patient has known coronary artery disease, status post acute ME x5, by the record. Ejection fraction is not known. The patient denies any recent echocardiogram. [facility] The patient has a daily headache often times. Does wear his CPAP regularly and does not even lay down for a nap without it. The patient has had no unusual salty foods, weight gain, increasing orthopnea, but rather he is short of breath all the time. The patient did report chest pain in the ER, which was left-sided, going down into the left arm a bit. The patient has chronic neck problems. Does have chronic disk disease. The patient has had no bleeding and has had no other signs of infection and is not coughing up significant amounts of sputum, he states. The patient does have extensive medication list which was reviewed, and he reports he is taking each and every medication. Of note, the patient is on both Plavix and Eliquis, he is also on verapamil and simvastatin which have a known interaction. Patient relates no syncope but does not have any difficulty tolerating his medications in his estimation. ER evaluation revealed that his NT BNP was 606 and his troponin was less than 0.17. His GFR was greater than 60. His PT and PTT were unremarkable, and CBC was normal. A chest x-ray did reveal a right lower lobe infiltrate. EKG did show atrial fibrillation with heart rate of 90 to 105. A blood culture and a sputum culture were attempted. Lab work otherwise reviewed and unremarkable. The patient was stabilized by Dr. Villa as best as he could, but he is still having significant hypoxia. He has been weaned down from 15 L on the non- rebreather down to 2 L nasal cannula, but the patient is unable to continue on it at this point. The patient was given Rocephin based on his chest x-ray, recommended for admission. His current O2 saturations are in the 92% to 95% range on 2 L. ALLERGIES: The patient has no significant allergies. Outpatient. SOCIAL HISTORY: He is a nonsmoker currently. Did smoke for many, many years but I believe quit in 2001. Status post acute ME, patient's code status is full code. This was reviewed with the patient. The patient is . No family members are available at this time. PHYSICAL EXAMINATION: GENERAL: Shows a well-developed, nourished gentleman, barrel chested. He has extensive skin changes from prednisone and skin bleeding. HEENT: Shows equal and reactive pupils, normal sclerae. Unremarkable ears. Unremarkable oropharynx. The patient does wear dentures. NECK: No lymphadenopathy in neck. Thyroid is grossly normal. LUNGS: Sounds are clear, but extremely diminished. CARDIAC: Shows normal S1, S2. Irregular regular. There is no S3 or S4 appreciated. Patient has no obvious murmur. Patient does have JVD when lying at 30 degrees and cannot lay flat currently, but he states he will be able to lay flat in a couple hours. The patient states he often times has to sit up at night just to get comfortable again and then go back to sleep in a recliner. Carotids are without bruits. EXTREMITIES: The patient's nails show no clubbing. He has cool extremities. He has diminished pulses but they are present. ABDOMEN: Benign. No spleen or liver appreciated. No hepatomegaly. No bruits. He shows mild centripetal obesity with distal wasting. NEUROLOGIC: He has reflexes which are normal. He has no difficulty ambulating or standing. He has a negative Romberg. Strength testing of upper extremity unremarkable for hand quiller hand and arm strength. Leg, hip, knee, and ankle strength essentially normal throughout. ASSESSMENT: Pneumonia. X-ray revealed a new right lower lobe infiltrate, cardiomegaly, and features of chronic obstructive pulmonary disease essentially appreciated on x- ray. RECOMMENDATION: Admit for [id number] nebs, Solu-Medrol recommended. He is in agreement. The patient will be continued on O2 to keep his saturations 90% to 95%. We will have to make sure he does not CO2 retain. The patient states he is ready for nap as he has not been sleeping well for the last couple of nights and believes he will be able to lie flat in a couple hours. Currently, patient denies any chest pain. He has had a 2nd troponin which is negative. We will continue his nebulizers with DuoNeb to see if this improves his oxygenation and continue prednisone and/or IV steroids depending on his response. The patient will be continued on his home medications. I am concerned about the Calan, verapamil, simvastatin. We will send off a CPK to make sure he is not having any myopathy. 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 The patient denies significant muscle aches currently, but this he raises a good possibility and patient should be updated on his simvastatin to a newer form to avoid interaction with verapamil. Verapamil is also known to interact with Eliquis. The patient does have extensive bruising. The reason for the Calan is suspected to be both formulary and therapeutic because of his persistent tachycardia, but this is not known at this point and we will attempt to follow up with his primary care physician. VANESSA /[id number]
[2018-09-11] MEDS: methylPREDNISolone Sodium Succinate 40 MG/1 ML SDV IVPUSH SCH (16:37)
[2018-09-11] MEDS: Cholecalciferol (Vitamin D3) 1,000 Unit Tab PO SCH (19:59)
[2018-09-11] MEDS: Simvastatin 20 MG Tab PO SCH (20:00)
[2018-09-11] MEDS: Potassium Chloride 10 MEQ Tab.ER PO SCH (20:00)
[2018-09-11] MEDS: Magnesium Oxide 400 MG Tab PO SCH (20:00)
[2018-09-11] MEDS: Mirtazapine 30 MG Tab PO SCH (20:00)
[2018-09-11] MEDS: PARoxetine 20 MG Tab PO SCH (20:00)
[2018-09-11] MEDS: Verapamil 120 MG Cap.ER PO SCH (20:00)
[2018-09-11] MEDS: Apixaban 5 MG Tab PO SCH (20:00)
[2018-09-11] MEDS: ClonazePAM 1 MG Tab PO SCH (20:01)
[2018-09-11] MEDS: Formoterol/Mometasone 200-5 MCG 8.8 GM Inhaler IH SCH (20:16)
[2018-09-12] MEDS: Albuterol/Ipratropium 3.0-0.5 MG/3 ML Neb Soln NEB SCH ×4 (02:41→20:48)
[2018-09-12] MEDS: methylPREDNISolone Sodium Succinate 40 MG/1 ML SDV IVPUSH SCH (03:34)
[2018-09-12] MEDS: cefTRIAXone 1 GM in Sodium Chloride 0.9% 100 ML IV SCH (05:00)
[2018-09-12] MEDS ORDERED: cefTRIAXone 1 GM Vial IM SCH (06:00)
[2018-09-12] MEDS: Tamsulosin 0.4 MG Cap.ER PO SCH (08:25)
[2018-09-12] MEDS: Famotidine 20 MG Tab PO SCH (08:25)
[2018-09-12] MEDS: Apixaban 5 MG Tab PO SCH ×2 (08:26→20:29)
[2018-09-12] MEDS: Potassium Chloride 10 MEQ Tab.ER PO SCH ×2 (08:26→20:28)
[2018-09-12] MEDS: Clopidogrel 75 MG Tab PO SCH (08:26)
[2018-09-12] MEDS: Cyanocobalamin (Vitamin B12) 1,000 MCG Tab PO SCH (08:27)
[2018-09-12] MEDS: Cholecalciferol (Vitamin D3) 1,000 Unit Tab PO SCH ×2 (08:27→20:28)
[2018-09-12] MEDS: Verapamil 120 MG Cap.ER PO SCH ×2 (08:27→20:27)
[2018-09-12] MEDS: Furosemide 40 MG Tab PO SCH (08:28)
[2018-09-12] MEDS: Formoterol/Mometasone 200-5 MCG 8.8 GM Inhaler IH SCH ×2 (08:36→20:48)
--- NOTE | 2018-09-12 12:49 | PCM.PN ---
- General Info Date of Service: 09/12/18 Admission Dx/Problem (Free Text): cira doing much better afebrile vss and heart rate and tachipnea improved / wob improved / minimal non productive cough eating well and drinking pop . lungs improved air exchange and little wheezing . mild chest soreness skin multiple bruises cor. rrr without murmur s3/s4 abd protuberent but no pain extremities trace edema lab bs 175 lytes okay day 2 rocephin gram stain moderate yeast and no dominant organism some gram pos cocci in chains voiding well and bms good Functional Status: Reports: Pain Controlled - Review of Systems General: Reports: No Symptoms HEENT: Reports: No Symptoms Pulmonary: Reports: No Symptoms, Wheezing Cardiovascular: Reports: No Symptoms Gastrointestinal: Reports: No Symptoms Genitourinary: Reports: No Symptoms Musculoskeletal: Reports: No Symptoms Skin: Reports: No Symptoms Neurological: Reports: No Symptoms Psychiatric: Reports: No Symptoms - Patient Data Vitals - Most Recent: Last Vital Signs Temp 36.3 C 09/12/18 12:33 Pulse 77 09/12/18 12:33 Resp 20 09/12/18 12:33 BP 119/80 09/12/18 12:33 Pulse Ox 94 L 09/12/18 12:33 Weight - Most Recent: 93.922 kg I&O - Last 24 Hours: Intake & Output 09/11/18 09/12/18 09/12/18 22:59 06:59 14:59 Intake Total 660 300 240 Output Total 600 1500 Balance 60 -1200 240 Robert Results Last 24 Hours: Microbiology 09/11/18 06:55 Aerobic Blood Culture - Preliminary Blood NO GROWTH AFTER 1 DAY Anaerobic Blood Culture - Preliminary NO GROWTH AFTER 1 DAY 09/11/18 06:45 Gram Stain - Final Sputum - Expectorated Med Orders - Current: Current Medications Albuterol (Proventil Hfa) 0 gm INH Q4H PRN PRN Reason: Shortness of Breath Albuterol/Ipratropium (Duoneb 3.0-0.5 Mg/3 Ml) 3 ml NEB Q6HRRT [facility] Last Admin: 09/12/18 08:36 Dose: 3 ml Apixaban (Eliquis) 5 mg PO BID [facility] Last Admin: 09/12/18 08:26 Dose: 5 mg Cholecalciferol (Vitamin D3) 1,000 units PO BID [facility] Last Admin: 09/12/18 08:27 Dose: 1,000 units Clonazepam (Klonopin) 1 mg PO BEDTIME [facility] Last Admin: 09/11/18 20:01 Dose: 1 mg Clopidogrel Bisulfate (Plavix) 75 mg PO DAILY [facility] Last Admin: 09/12/18 08:26 Dose: 75 mg Clotrimazole (Mycelex) 10 mg PO 5XDAY [facility] Cyanocobalamin (Vitamin B12) 1,000 mcg PO DAILY [facility] Last Admin: 09/12/18 08:27 Dose: 1,000 mcg Famotidine (Pepcid) 20 mg PO DAILY [facility] Last Admin: 09/12/18 08:25 Dose: 20 mg Furosemide (Lasix) 40 mg PO DAILY [facility] Last Admin: 09/12/18 08:28 Dose: 40 mg Ceftriaxone Sodium 1 gm/ (Sodium Chloride) 100 mls @ 200 mls/hr IV Q24H [facility] Last Admin: 09/12/18 05:00 Dose: 200 mls/hr Ipratropium [place] (Atrovent 0.06% Nasal [place]) 0 ml NASBOTH BID PRN PRN Reason: rhinorrhea Magnesium Oxide (Magnesium Oxide) 400 mg PO BEDTIME [facility] Last Admin: 09/11/18 20:00 Dose: 400 mg Mirtazapine (Remeron) 30 mg PO BEDTIME [facility] Last Admin: 09/11/18 20:00 Dose: 30 mg Mometasone Furoate/Formoterol Fumar (Dulera 200-5 Mcg) 2 puff IH BID [facility] Last Admin: 09/12/18 08:36 Dose: 2 puff Nitroglycerin (Nitrostat) 0.4 mg SL Q5M PRN PRN Reason: Chest Pain Paroxetine HCl (Paxil) 20 mg PO BEDTIME [facility] Last Admin: 09/11/18 20:00 Dose: 20 mg Potassium Chloride (Klor-Con 10) 10 meq PO BID [facility] Last Admin: 09/12/18 08:26 Dose: 10 meq Prednisone (Prednisone) 20 mg PO WITHBREAKFAST [facility] Stop: 09/18/18 09:00 Prednisone (Prednisone) 20 mg PO WITHBREAKFAST [facility] Stop: 09/17/18 07:01 Simvastatin (Zocor) 20 mg PO BEDTIME [facility] Last Admin: 09/11/18 20:00 Dose: 20 mg Tamsulosin HCl (Flomax) 0.4 mg PO DAILY [facility] Last Admin: 09/12/18 08:25 Dose: 0.4 mg Verapamil HCl (Verelan) 120 mg PO BID [facility] Last Admin: 09/12/18 08:27 Dose: 120 mg Discontinued Medications Albuterol/Ipratropium (Duoneb 3.0-0.5 Mg/3 Ml) 3 ml NEB ONETIME ONE Stop: 09/11/18 04:41 Last Admin: 09/11/18 04:42 Dose: 3 ml Albuterol/Ipratropium (Duoneb 3.0-0.5 Mg/3 Ml) Confirm Administered Dose 3 ml .ROUTE .STK-MED ONE Stop: 09/11/18 04:41 Last Admin: 09/11/18 05:05 Dose: Not Given Albuterol/Ipratropium (Duoneb 3.0-0.5 Mg/3 Ml) 3 ml NEB ONETIME ONE Stop: 09/11/18 05:13 Last Admin: 09/11/18 05:17 Dose: 3 ml Ceftriaxone Sodium 1 gm/ (Sodium Chloride) 100 mls @ 200 mls/hr IV ONETIME ONE Stop: 09/11/18 07:21 Last Admin: 09/11/18 07:17 Dose: 200 mls/hr Ipratropium [place] (Atrovent 0.06% Nasal [place]) 0 ml NASBOTH BID PRN PRN Reason: Dryness Methylprednisolone Sodium Succinate (Solu-Medrol) 125 mg IVPUSH ONETIME ONE Stop: 09/11/18 04:47 Last Admin: 09/11/18 05:03 Dose: 125 mg Methylprednisolone Sodium Succinate (Solu-Medrol) 40 mg IVPUSH Q12H [facility] Last Admin: 09/12/18 03:34 Dose: 40 mg - Exam Quality Assessment: Supplemental Oxygen ( decreasexc form 5 to 3 and now this am 1 n.c on cpap ) General: Alert, Oriented HEENT: Pupils Equal, Pupils Reactive, EOMI, Mucous Membr. Moist/[place] Neck: Supple Lungs: Clear to Auscultation, Normal Respiratory Effort Cardiovascular: Regular Rate, Regular Rhythm GI/Abdominal Exam: Normal Bowel Sounds, Soft, Non-Tender, No Organomegaly, No Distention, No Abnormal Bruit, No Mass, Pelvis Stable (Male) Exam: No Hernia, Normal Inspection, Normal Prostate, Circumcised Back Exam: Normal Inspection, Full Range of Motion Extremities: Normal Inspection, Normal Range of Motion, Non-Tender, No Pedal Edema, Normal Capillary Refill Skin: Warm, Dry, Intact Wound/Incisions: Healing Well Neurological: No New Focal Deficit Psy/Mental Status: Alert, Normal Affect, Normal Mood - Problem List & Annotations (1) Atrial fibrillation SNOMED Code(s): 26434573 Code(s): I48.91 - UNSPECIFIED ATRIAL FIBRILLATION Status: Acute Current Visit: Yes Onset Date: 09/11/18 Qualifiers: Atrial fibrillation type: chronic Qualified Code(s): I48.2 - Chronic atrial fibrillation Annotation/Comment:: rate control improved (2) COLD, Chronic obstructive lung disease SNOMED Code(s): 69863249 Code(s): J44.9 - CHRONIC OBSTRUCTIVE PULMONARY DISEASE, UNSPECIFIED Status : Acute Priority: High Current Visit: Yes Onset Date: 09/12/18 (3) Pneumonia SNOMED Code(s): 113843821 Code(s): J18.9 - PNEUMONIA, UNSPECIFIED ORGANISM Status: Acute Current Visit: Yes Qualifiers: Pneumonia type: due to unspecified organism Laterality: bilateral Lung location: lower lobe of lung Qualified Code(s): J18.1 - Lobar pneumonia, unspecified organism (4) Asthma exacerbation in COPD SNOMED Code(s): 1858671832030 Code(s): J44.1 - CHRONIC OBSTRUCTIVE PULMONARY DISEASE W (ACUTE) EXACERBATION ; J45.901 - UNSPECIFIED ASTHMA WITH (ACUTE) EXACERBATION Status: Acute Priority: High Current Visit: No Onset Date: 09/10/18 Annotation/Comment: : pneumonia rll responding (5) Diabetes mellitus SNOMED Code(s): 77878066 Code(s): E11.9 - TYPE 2 DIABETES MELLITUS WITHOUT COMPLICATIONS Status: Acute Priority: Medium Current Visit: Yes Onset Date: 09/12/18 Qualifiers: Diabetes mellitus type: type 2 Annotation/Comment:: secondary to steriods but has been on insulin in past - Problem List Review Problem List Initiated/Reviewed/Updated: Yes - My Orders Last 24 Hours: My Active Orders 09/11/18 12:07 Resuscitation Status Routine 09/11/18 12:55 RT Aerosol Therapy [RC] ASDIRECTED 09/11/18 13:00 Albuterol/Ipratropium [DuoNeb 3.0-0.5 MG/3 ML] 3 ml NEB Q6HRRT 09/11/18 14:06 RT BiPAP/CPAP [RC] ASDIRECTED 09/11/18 14:25 Patient Status [ADT] Routine Oxygen Therapy [RC] PRN VTE/DVT Education [RC] 10,22 Vital Signs [RC] Q4HR 09/11/18 14:29 Albuterol [Proventil HFA] 0 gm INH Q4H PRN 09/11/18 21:00 Apixaban [Eliquis] 5 mg PO BID Cholecalciferol (Vitamin D3) [Vitamin D3] 1,000 units PO BID ClonazePAM [KlonoPIN] 1 mg PO BEDTIME Magnesium Oxide 400 mg PO BEDTIME Mirtazapine [Remeron] 30 mg PO BEDTIME Mometasone/Formoterol [Dulera 200-5 MCG] 2 puff IH BID PARoxetine [Paxil] 20 mg PO BEDTIME Potassium Chloride [Klor-Con 10] 10 meq PO BID Simvastatin [Zocor] 20 mg PO BEDTIME Verapamil [Verelan] 120 mg PO BID 09/12/18 09:00 Clopidogrel [Plavix] 75 mg PO DAILY Cyanocobalamin (Vitamin B12) [Vitamin B12] 1,000 mcg PO DAILY Famotidine [Pepcid] 20 mg PO DAILY Furosemide [Lasix] 40 mg PO DAILY Tamsulosin [Flomax] 0.4 mg PO DAILY 09/12/18 14:00 Clotrimazole [Mycelex] 10 mg PO 5XDAY 09/13/18 07:00 Glimepiride [Amaryl] 2 mg PO WITHBREAKFAST predniSONE 20 mg PO WITHBREAKFAST - Assessment Assessment:: pneumonia improving / switch to augmentin in am possable dc if stable copd switch to oral prednisone x 5 days see primary prov. back next week hydration stabkle dm metformin or low dose gliburide to control bs and reassess off steriods. chronic renal insuff . - Plan Plan:: cont rocephin today and start augmentin tomorrow / has not been on zythromax so no legionella or pseudomonas coverage but appears to be responding to rocephin ? strep pneumonia should receive booster doses of pneumovax 23 and 13
[2018-09-12] MEDS ORDERED: Ipratropium 0.06% Nasal Spray 15 ML Bottle NASBOTH PRN (14:29)
[2018-09-12] MEDS: Clotrimazole 10 MG Troche PO SCH ×2 (15:02→19:32)
--- NOTE | 2018-09-12 19:35 | CR ---
Chest: Portable view of the chest was obtained. Comparison: Previous chest x-ray of 09/03/18. Enlarged right cardiac margin is seen which appears stable from previous studies. Tortuous left-sided thoracic aorta is noted. Lungs are clear with no acute parenchymal change. Bony structures are grossly intact. Impression: 1. Incidental findings which are stable. Nothing acute is appreciated. Diagnostic code #2
[2018-09-12] MEDS: Mirtazapine 30 MG Tab PO SCH (20:28)
[2018-09-12] MEDS: ClonazePAM 1 MG Tab PO SCH (20:28)
[2018-09-12] MEDS: Simvastatin 20 MG Tab PO SCH (20:29)
[2018-09-12] MEDS: Magnesium Oxide 400 MG Tab PO SCH (20:29)
[2018-09-12] MEDS: PARoxetine 20 MG Tab PO SCH (20:30)
[2018-09-13] MEDS: Clotrimazole 10 MG Troche PO SCH ×3 (01:10→09:02)
[2018-09-13] MEDS: Albuterol/Ipratropium 3.0-0.5 MG/3 ML Neb Soln NEB SCH ×2 (03:04→08:10)
[2018-09-13] MEDS: cefTRIAXone 1 GM in Sodium Chloride 0.9% 100 ML IV SCH (05:54)
[2018-09-13] MEDS ORDERED: predniSONE 20 MG Tab PO SCH ×2 (07:00)
[2018-09-13] MEDS ORDERED: Glimepiride 2 MG Tab PO SCH (07:00)
[2018-09-13] MEDS: Formoterol/Mometasone 200-5 MCG 8.8 GM Inhaler IH SCH (08:10)
[2018-09-13 08:40] VITALS: BP 117/61
[2018-09-13] MEDS: Tamsulosin 0.4 MG Cap.ER PO SCH (08:56)
[2018-09-13] MEDS: Cholecalciferol (Vitamin D3) 1,000 Unit Tab PO SCH (08:56)
[2018-09-13] MEDS: Clopidogrel 75 MG Tab PO SCH (08:56)
[2018-09-13] MEDS: Cyanocobalamin (Vitamin B12) 1,000 MCG Tab PO SCH (08:56)
[2018-09-13] MEDS: Apixaban 5 MG Tab PO SCH (08:57)
[2018-09-13] MEDS: Famotidine 20 MG Tab PO SCH (08:57)
[2018-09-13] MEDS: Verapamil 120 MG Cap.ER PO SCH (08:57)
[2018-09-13] MEDS: Furosemide 40 MG Tab PO SCH (08:57)
[2018-09-13] MEDS: Potassium Chloride 10 MEQ Tab.ER PO SCH (08:58)
--- NOTE | 2018-09-13 10:39 | PCM.DCSUM1 ---
Discharge Summary - Hospital Course HPI Initial Comments: Patient admitted after having increasing difficulty breathing for approximately one week. He has long-standing COPD and oxygen dependence. Patient was advised in one week ago in the emergency room that time started on Levaquin and oral steroids. Patient did not improve and returned to the emergency room 2 days ago and was admitted. Diagnosis: Stroke: No - Discharge Data Discharge Date: 09/13/18 Discharge Disposition: Home, Self-Care 01 Condition: Fair - Discharge Diagnosis/Problem(s) (1) COLD, Chronic obstructive lung disease SNOMED Code(s): 86152378 ICD Code: J44.9 - CHRONIC OBSTRUCTIVE PULMONARY DISEASE, UNSPECIFIED Status : Acute Priority: High Onset Date: 09/12/18 (2) Pneumonia SNOMED Code(s): 515504258 ICD Code: J18.9 - PNEUMONIA, UNSPECIFIED ORGANISM Status: Acute - Patient Instructions Diet: Diabetic Diet Activity: As Tolerated Driving: May Drive Today Showering/Bathing: May Shower Notify Provider of: Fever Other/Special Instructions: follow up with PCP in 3 days. He may need additional steroids or diabetic medications. - Discharge Plan *PRESCRIPTION DRUG MONITORING PROGRAM REVIEWED*: Not Applicable *COPY OF PRESCRIPTION DRUG MONITORING REPORT IN PATIENT DANITZA: Not Applicable Prescriptions/Med Rec: Amoxicillin/Clavulanate K [Augmentin 875-125 MG] 1 tab PO Q12HR #10 tablet Glimepiride [Amaryl] 1 mg PO WITHBREAKFAST #7 tablet predniSONE 20 mg PO WITHBREAKFAST #3 tablet Home Medications: Home Meds Clopidogrel [Plavix] 75 mg PO DAILY 04/12/14 [History] Furosemide [Lasix] 40 mg PO DAILY 04/12/14 [History] PARoxetine HCl [Paxil] 20 mg PO BEDTIME 04/12/14 [History] Potassium Chloride 10 meq PO BID 04/12/14 [History] Tamsulosin HCl [Flomax] 0.4 mg PO DAILY 04/12/14 [History] Tiotropium [Spiriva HandiHaler] 1 cap INH DAILY 04/12/14 [History] Simvastatin [Zocor] 20 mg PO BEDTIME 02/03/15 [History] Apixaban [Eliquis] 5 mg PO BID 01/23/16 [History] Budesonide/Formoterol [Symbicort 160-4.5 MCG] 2 puff INH BID 01/23/16 [History] Verapamil [Calan SR] 120 mg PO BID 01/23/16 [History] Albuterol Sulfate 1 vial INH Q6H 10/18/16 [History] Albuterol Sulfate [Proair Respiclick] 2 puff INH Q4H PRN 10/18/16 [History] ClonazePAM [KlonoPIN] 1 mg PO BEDTIME 10/18/16 [History] Ipratropium [place] 1 spray NASBOTH BID PRN 10/18/16 [History] Ranitidine [Zantac] 300 mg PO QAM 10/18/16 [History] Cholecalciferol (Vitamin D3) [Vitamin D] 1,000 unit PO BID 04/13/17 [History] Mirtazapine 30 mg PO BEDTIME 04/13/17 [History] Magnesium Oxide 420 mg PO BEDTIME 02/19/18 [History] Cyanocobalamin (Vitamin B-12) [Vitamin B-12] 1,000 mcg PO DAILY 09/11/18 [ History] Amoxicillin/Clavulanate K [Augmentin 875-125 MG] 1 tab PO Q12HR #10 tablet 09/13 [Rx] Glimepiride [Amaryl] 1 mg PO WITHBREAKFAST #7 tablet 09/13/18 [Rx] predniSONE 20 mg PO WITHBREAKFAST #3 tablet 09/13/18 [Rx] Oxygen Therapy Mode: Room Air Forms: ED Department Discharge Referrals: Ana Benjamin MD [Primary Care Provider] - 09/14/18 2:00 pm (Please follow up with Dr. Benjamin on ThursdaySeptember 14 at 1400. ) - Discharge Summary/Plan Comment DC Time >30 min.: No Discharge Summary/Plan Comment: patient stabilized quickly and will go home on prednisone 20 mg daily for 3 more days and Augmentin 875 mg twice a day for 5 days. Follow-up with his primary care provider tomorrow. - General Info Date of Service: 09/13/18 Admission Dx/Problem (Free Text: Jeffy is doing much better afebrile vss and heart rate and tachipnea improved /wob improved / minimal non productive cough eating well and drinking pop . lungs improved air exchange and little wheezing . mild chest soreness skin multiple bruises cor. rrr without murmur s3/s4 abd protuberent but no pain extremities trace edema lab bs 175 lytes okjessica Augmentin gram stain moderate yeast and no dominant organism some gram pos cocci in chains voiding well and bms good - Review of Systems General: Reports: No Symptoms, Night Sweats HEENT: Reports: No Symptoms Pulmonary: Denies: Shortness of Breath, Cough Cardiovascular: Reports: No Symptoms. Denies: Chest Pain, Dyspnea on Exertion Gastrointestinal: Reports: No Symptoms Genitourinary: Reports: No Symptoms - Patient Data Vitals - Most Recent: Last Vital Signs Temp 97.5 F 09/13/18 08:28 Pulse 81 09/13/18 08:57 Resp 16 09/13/18 08:28 BP 117/61 09/13/18 08:57 Pulse Ox 91 L 09/13/18 08:28 Weight - Most Recent: 208 lb 8 oz I&O - Last 24 hours: Intake & Output 09/12/18 09/13/18 09/13/18 22:59 06:59 14:59 Intake Total 780 800 320 Output Total 1300 Balance -520 800 320 Lab Results - Last 24 hrs: Laboratory Results - last 24 hr 09/13/18 09/13/18 Range/Units 06:30 06:30 WBC 13.99 H (4.23-9.07) K/mm3 RBC 4.65 (4.63-6.08) M/mm3 Hgb 14.9 (13.7-17.5) gm/L Hct 46.3 (40.1-51.0) % MCV 99.6 H (79.0-92.2) fl MCH 32.0 (25.7-32.2) pg MCHC 32.2 (32.2-35.5) g/dl RDW Std Deviation 51.8 H (35.1-43.9) fL Plt Count 190 (163-337) K/mm3 MPV 9.5 (9.4-12.3) fl Neut % (Auto) 85.6 H (34.0-67.9) % Lymph % (Auto) 7.1 L (21.8-53.1) % [place] % (Auto) 6.0 (5.3-12.2) % Eos % (Auto) 0.1 L (0.8-7.0) Baso % (Auto) 0.1 (0.1-1.2) % Neut # (Auto) 11.97 H (1.78-5.38) K/mm3 Lymph # (Auto) 1.00 L (1.32-3.57) K/mm3 [place] # (Auto) 0.84 H (0.30-0.82) K/mm3 Eos # (Auto) 0.02 L (0.04-0.54) K/mm3 Baso # (Auto) 0.01 (0.01-0.08) K/mm3 Manual Slide Review Abnormal smear Sodium 140 (136-145) mEq/L Potassium 4.7 (3.5-5.1) mEq/L Chloride 104 (98-107) mEq/L Carbon Dioxide 29 (21-32) mEq/L Anion Gap 11.7 (5-15) BUN 29 H (7-18) mg/dL Creatinine 1.2 (0.7-1.3) mg/dL Est Cr Clr Drug Dosing 52.43 mL/min Estimated GFR (MDRD) > 60 (>60) mL/min BUN/Creatinine Ratio 24.2 H (14-18) Glucose 222 H (80-115) mg/dL Calcium 8.6 (8.5-10.1) mg/dL Magnesium 2.2 (1.8-2.4) mg/dl CHRISTOPHER Results - Last 24 hrs: Microbiology 09/11/18 06:55 Aerobic Blood Culture - Preliminary Blood NO GROWTH AFTER 2 DAYS Anaerobic Blood Culture - Preliminary NO GROWTH AFTER 2 DAYS 09/11/18 06:45 Gram Stain - Final Sputum - Expectorated Sputum Culture - Preliminary Med Orders - Current: Current Medications Albuterol (Proventil Hfa) 0 gm INH Q4H PRN PRN Reason: Shortness of Breath Albuterol/Ipratropium (Duoneb 3.0-0.5 Mg/3 Ml) 3 ml NEB Q6HRRT [facility] Last Admin: 09/13/18 08:10 Dose: 3 ml Amoxicillin/Clavulanate Potassium (Augmentin 875 Mg/125 Mg) 1 tab PO Q12HR [facility] Stop: 09/20/18 21:01 Apixaban (Eliquis) 5 mg PO BID [facility] Last Admin: 09/13/18 08:57 Dose: 5 mg Cholecalciferol (Vitamin D3) 1,000 units PO BID [facility] Last Admin: 09/13/18 08:56 Dose: 1,000 units Clonazepam (Klonopin) 1 mg PO BEDTIME [facility] Last Admin: 09/12/18 20:28 Dose: 1 mg Clopidogrel Bisulfate (Plavix) 75 mg PO DAILY [facility] Last Admin: 09/13/18 08:56 Dose: 75 mg Clotrimazole (Mycelex) 10 mg PO 5XDAY [facility] Last Admin: 09/13/18 09:02 Dose: 10 mg Cyanocobalamin (Vitamin B12) 1,000 mcg PO DAILY [facility] Last Admin: 09/13/18 08:56 Dose: 1,000 mcg Famotidine (Pepcid) 20 mg PO DAILY [facility] Last Admin: 09/13/18 08:57 Dose: 20 mg Furosemide (Lasix) 40 mg PO DAILY [facility] Last Admin: 09/13/18 08:57 Dose: 40 mg Glimepiride (Amaryl) 2 mg PO WITHBREAKFAST [facility] Last Admin: 09/13/18 06:58 Dose: 2 mg Ceftriaxone Sodium 1 gm/ (Sodium Chloride) 100 mls @ 200 mls/hr IV Q24H [facility] Last Admin: 09/13/18 05:54 Dose: 200 mls/hr Ipratropium [place] (Atrovent 0.06% Nasal [place]) 0 ml NASBOTH BID PRN PRN Reason: rhinorrhea Magnesium Oxide (Magnesium Oxide) 400 mg PO BEDTIME [facility] Last Admin: 09/12/18 20:29 Dose: 400 mg Mirtazapine (Remeron) 30 mg PO BEDTIME [facility] Last Admin: 09/12/18 20:28 Dose: 30 mg Mometasone Furoate/Formoterol Fumar (Dulera 200-5 Mcg) 2 puff IH BID [facility] Last Admin: 09/13/18 08:10 Dose: 2 puff Nitroglycerin (Nitrostat) 0.4 mg SL Q5M PRN PRN Reason: Chest Pain Paroxetine HCl (Paxil) 20 mg PO BEDTIME [facility] Last Admin: 09/12/18 20:30 Dose: 20 mg Potassium Chloride (Klor-Con 10) 10 meq PO BID [facility] Last Admin: 09/13/18 08:58 Dose: 10 meq Prednisone (Prednisone) 20 mg PO WITHBREAKFAST [facility] Stop: 09/17/18 07:01 Last Admin: 09/13/18 06:58 Dose: 20 mg Simvastatin (Zocor) 20 mg PO BEDTIME [facility] Last Admin: 09/12/18 20:29 Dose: 20 mg Tamsulosin HCl (Flomax) 0.4 mg PO DAILY [facility] Last Admin: 09/13/18 08:56 Dose: 0.4 mg Verapamil HCl (Verelan) 120 mg PO BID [facility] Last Admin: 09/13/18 08:57 Dose: 120 mg Discontinued Medications Albuterol/Ipratropium (Duoneb 3.0-0.5 Mg/3 Ml) 3 ml NEB ONETIME ONE Stop: 09/11/18 04:41 Last Admin: 09/11/18 04:42 Dose: 3 ml Albuterol/Ipratropium (Duoneb 3.0-0.5 Mg/3 Ml) Confirm Administered Dose 3 ml .ROUTE .STK-MED ONE Stop: 09/11/18 04:41 Last Admin: 09/11/18 05:05 Dose: Not Given Albuterol/Ipratropium (Duoneb 3.0-0.5 Mg/3 Ml) 3 ml NEB ONETIME ONE Stop: 09/11/18 05:13 Last Admin: 09/11/18 05:17 Dose: 3 ml Ceftriaxone Sodium 1 gm/ (Sodium Chloride) 100 mls @ 200 mls/hr IV ONETIME ONE Stop: 09/11/18 07:21 Last Admin: 09/11/18 07:17 Dose: 200 mls/hr Ipratropium [place] (Atrovent 0.06% Nasal [place]) 0 ml NASBOTH BID PRN PRN Reason: Dryness Methylprednisolone Sodium Succinate (Solu-Medrol) 125 mg IVPUSH ONETIME ONE Stop: 09/11/18 04:47 Last Admin: 09/11/18 05:03 Dose: 125 mg Methylprednisolone Sodium Succinate (Solu-Medrol) 40 mg IVPUSH Q12H [facility] Last Admin: 09/12/18 03:34 Dose: 40 mg Prednisone (Prednisone) 20 mg PO WITHBREAKFAST [facility] Stop: 09/18/18 09:00 - Exam Quality Assessment: Denies: Supplemental Oxygen General: Reports: Alert, Oriented HEENT: Reports: Pupils Equal, Pupils Reactive Neck: Reports: Supple Lungs: Reports: Normal Respiratory Effort, Decreased Breath Sounds Cardiovascular: Reports: Regular Rate, Irregular Rhythm GI/Abdominal Exam: Normal Bowel Sounds, Soft, Non-Tender, No Distention Extremities: Normal Inspection, Normal Range of Motion, No Pedal Edema, Normal Capillary Refill Skin: Reports: Warm, Dry, Intact Psy/Mental Status: Reports: Alert, Normal Affect, Normal Mood
[2018-09-13] MEDS ORDERED: Amoxicillin/Clavulanate K 875-125 MG Tab PO SCH (21:00)
== END 2018-09-13 12:20 | disposition home or self-care (01) | DRG 194 ==
LOC: JD.ED 04:23 → JD.MS 08:42
PROVIDERS: ADMIT Pediatrics; ATTEND Pediatrics
DX: J18.1 Lobar pneumonia, unspecified organism (principal); J44.0 Chronic obstructive pulmonary disease with (acute) lower respiratory infection; J45.901 Unspecified asthma with (acute) exacerbation; I13.0 Hypertensive heart and chronic kidney disease with heart failure and stage 1 through stage 4 chronic kidney disease, or unspecified chronic kidney disease; I48.2 Chronic atrial fibrillation; I50.9 Heart failure, unspecified; I27.81 Cor pulmonale (chronic); I25.10 Atherosclerotic heart disease of native coronary artery without angina pectoris; E78.00 Pure hypercholesterolemia, unspecified; G47.30 Sleep apnea, unspecified; K21.9 Gastro-esophageal reflux disease without esophagitis; N40.0 Benign prostatic hyperplasia without lower urinary tract symptoms; F41.9 Anxiety disorder, unspecified; F32.9 Major depressive disorder, single episode, unspecified; E66.9 Obesity, unspecified; E11.22 Type 2 diabetes mellitus with diabetic chronic kidney disease; N18.9 Chronic kidney disease, unspecified; I25.2 Old myocardial infarction; H54.7 Unspecified visual loss; R09.02 Hypoxemia; B37.9 Candidiasis, unspecified; Z79.01 Long term (current) use of anticoagulants; Z79.02 Long term (current) use of antithrombotics/antiplatelets; Z79.899 Other long term (current) drug therapy; Z96.649 Presence of unspecified artificial hip joint; Z91.018 Allergy to other foods; Z95.5 Presence of coronary angioplasty implant and graft; Z99.81 Dependence on supplemental oxygen; Z87.891 Personal history of nicotine dependence; Z87.11 Personal history of peptic ulcer disease; Z88.5 Allergy status to narcotic agent; Z88.8 Allergy status to other drugs, medicaments and biological substances
CPT/HCPCS: 36415; 71045; 71045-26; 80048; 80053; 83735; 83880; 84484; 85007; 85025; 85027; 85610; 85730; 87040; 87070; 87077; 87205; 93005; 94640; 94760; 94761; 96365; 96375; 99285; 99285-25; A9270-GY; J0696; J2920; J2930; J7030; J7620-GY

== ENCOUNTER 2019-02-06 02:02 | Emergency (ER) | payer MEDICARE, OTHER ==
[2019-02-06 02:07] VITALS: BP 131/85; PULSE 93
[2019-02-06] MEDS ORDERED: Albuterol/Ipratropium 3.0-0.5 MG/3 ML Neb Soln NEB ONE (02:18)
[2019-02-06] MEDS ORDERED: predniSONE 20 MG Tab PO STA (02:18)
--- NOTE | 2019-02-06 02:22 | EDM.PDOC ---
ED HPI GENERAL MEDICAL PROBLEM - General Chief Complaint: Respiratory Problem Stated Complaint: [facility] Time Seen by Provider: 02/06/19 02:07 Source of Information: Reports: Patient History Limitations: Reports: No Limitations - History of Present Illness INITIAL COMMENTS - FREE TEXT/NARRATIVE: Mr. Barclay is a 68-year-old man past medical history significant for COPD on nightly oxygen, CHF, obstructive sleep apnea on nightly AutoPAP, coronary artery disease status post 5 MIs, and paroxysmal atrial fibrillation, was brought to the ED by EMS reporting that he has had 1-2 weeks of shortness of breath and 2-3 days of cough productive of greenish sputum. He states he had cold sweats one night, but he has not had a fever. He states that he has been taking an albuterol nebulizer about every 2 hours, and an albuterol by MDI every hour. He has not sought medical evaluation until tonight. Here in the ED, the patient was found to be hypoxemic. He is now saturating about 90% on 8 L per simple mask. The patient states that he quit smoking about 4-5 years ago, however, when I evaluated him on 04/26/2018, he reported at that time that he was still smoking about 2 cigarettes a day. The patient's PCP is at the [place]. Chest Pain Score (Numeric/FACES): 7 - Related Data Allergies Allergy/AdvReac Type Severity Reaction Status Date / Time acetaminophen [From Tylenol] Allergy Airway Verified 02/06/19 02:04 Tightness aspirin Allergy Airway Verified 02/06/19 02:04 Tightness horseradish Allergy Airway Verified 02/06/19 02:04 Tightness hydromorphone [From Dilaudid] Allergy Cardiac Verified 02/06/19 02:04 Arrest ibuprofen Allergy Airway Verified 02/06/19 02:04 Tightness meperidine HCl [From Demerol] Allergy Airway Verified 02/06/19 02:04 Tightness morphine Allergy Itching Verified 02/06/19 02:04 oxycodone Allergy Rash Verified 02/06/19 02:04 sumatriptan [From Imitrex] Allergy Cannot Verified 02/06/19 02:04 Remember sumatriptan succinate Allergy Cannot Verified 02/06/19 02:04 [From Imitrex] Remember guaifenesin [From Mucinex] AdvReac Tachycardia Verified 02/06/19 02:04 haloperidol [From Haldol] AdvReac Change Verified 02/06/19 02:04 Mental Status haloperidol lactate AdvReac Change Verified 02/06/19 02:04 [From Haldol] Mental Status ketorolac tromethamine AdvReac Change Verified 02/06/19 02:04 [From Toradol] Mental Status antihistamines Allergy Airway Uncoded 02/06/19 02:04 Tightness Home Meds: Home Meds Clopidogrel [Plavix] 75 mg PO DAILY 04/12/14 [History] Furosemide [Lasix] 40 mg PO DAILY 04/12/14 [History] PARoxetine HCl [Paxil] 20 mg PO BEDTIME 04/12/14 [History] Potassium Chloride 10 meq PO BID 04/12/14 [History] Tamsulosin HCl [Flomax] 0.4 mg PO BID 04/12/14 [History] Tiotropium [Spiriva HandiHaler] 1 cap INH DAILY 04/12/14 [History] Simvastatin [Zocor] 20 mg PO BEDTIME 02/03/15 [History] Apixaban [Eliquis] 5 mg PO BID 01/23/16 [History] Budesonide/Formoterol [Symbicort 160-4.5 MCG] 2 puff INH BID 01/23/16 [History] Verapamil [Calan SR] 120 mg PO BID 01/23/16 [History] Albuterol Sulfate 1 vial INH Q6H 10/18/16 [History] Albuterol Sulfate [Proair Respiclick] 2 puff INH Q4H PRN 10/18/16 [History] ClonazePAM [KlonoPIN] 1 mg PO BEDTIME 10/18/16 [History] Ipratropium [place] 1 spray NASBOTH BID PRN 10/18/16 [History] Ranitidine [Zantac] 300 mg PO QAM 10/18/16 [History] Cholecalciferol (Vitamin D3) [Vitamin D] 1,000 unit PO BID 04/13/17 [History] Mirtazapine 30 mg PO BEDTIME 04/13/17 [History] Magnesium Oxide 420 mg PO BEDTIME 02/19/18 [History] ClonazePAM [KlonoPIN] 0.5 mg PO ACBREAKFAST 02/06/19 [History] Past Medical History HEENT History: Reports: Impaired Vision Other HEENT History: wears eyeglasses and upper dentures Cardiovascular History: Reports: Afib (paroxysmal), CAD, Heart Failure, High Cholesterol, Hypertension, SD (x 5), Other (See Below) (Dextrocardia) Respiratory History: Reports: COPD (nightly O2 2.5 L), Sleep Apnea (nightly AutoPAP) Gastrointestinal History: Reports: GERD, PUD Genitourinary History: Reports: Acute Renal Failure, BPH Psychiatric History: Reports: Anxiety, Depression Endocrine/Metabolic History: Reports: Obesity/BMI 30+, Other (See Below) ( Prediabetes) - Infectious Disease History Infectious Disease History: Reports: Chicken Pox, Measles, Mumps - Past Surgical History HEENT Surgical History: Reports: Cataract Surgery, Naso-Sinus Surgery (nose, x 3 ) Cardiovascular Surgical History: Reports: Coronary Artery Stent (x 4, 2000) GI Surgical History: Reports: Appendectomy, Colonoscopy, EGD Male Surgical History: Reports: Prostate Biopsy, Other (See Below) (Right orchiectomy) Musculoskeletal Surgical History: Reports: Hip Replacement (bilateral) Social & Family History - Family History Family Medical History: Noncontributory Oncologic: Reports: Leukemia Other Oncologic Family History: Brother - Tobacco Use Smoking Status *Q: Former Smoker Years of Tobacco use: 52 Packs/Tins Daily: 0.5 Month/Year Tobacco Last Used: Quit 2019 - Caffeine Use Caffeine Use: Reports: Soda Other Caffeine Use: 2/day - Alcohol Use Alcohol Use History: No - Recreational Drug Use Recreational Drug Use: No - Living Situation & Occupation Living situation: Reports: , with Spouse Occupation: Retired ED ROS GENERAL - Review of Systems Review Of Systems: ROS reveals no pertinent complaints other than HPI. Neurological: Reports: Headache (chronic) ED EXAM, GENERAL - Physical Exam Exam: See Below Exam Limited By: No Limitations General Appearance: Alert, WD/WN, No Apparent Distress (the patient appears to be somewhat dyspneic, but is able to speak in full sentences) Eye Exam: Bilateral Eye: EOMI, Normal Inspection Ears: Normal External Exam, Hearing Grossly Normal Nose: Normal Inspection Throat/Mouth: Normal Inspection, Normal Lips, Normal Voice, No Airway Compromise Head: Atraumatic, Normocephalic Neck: Normal Inspection, Full Range of Motion Respiratory/Chest: No Accessory Muscle Use, Decreased Breath Sounds, Wheezing ( expiratory, throughout lungfields), Prolonged Expiration. No: Crackles, Rhonchi , Stridor Cardiovascular: Normal Peripheral Pulses, No Gallop, No JVD, No Murmur, No Rub, Irregularly Irregular (regular rate) Peripheral Pulses: 4+: Radial (L), Radial (R) GI/Abdominal: Normal Bowel Sounds, Soft, Non-Tender, No Organomegaly, No Distention, No Abnormal Bruit, No Mass (Male) Exam: Deferred Rectal (Males) Exam: Deferred Back Exam: Normal Inspection, Full Range of Motion, NT Extremities: Normal Inspection, Normal Range of Motion, No Pedal Edema, Normal Capillary Refill Neurological: Alert, Oriented, Normal Cognition, No Motor/Sensory Deficits Psychiatric: Normal Affect Skin Exam: Warm, Dry, Intact, Normal Color, No Rash EKG INTERPRETATION EKG Date: 02/06/19 Time: 02:09 Rhythm: A-Fib Rate (Beats/Min): 81 Valentine: Normal P-Wave: Absent QRS: Normal QT: Normal Comparison: No Change (09/11/2018) Course - Vital Signs Last Recorded V/S: Last Vital Signs Temp 36.3 C 02/06/19 02:04 Pulse 93 02/06/19 02:04 Resp 28 H 02/06/19 02:04 BP 131/85 02/06/19 02:04 Pulse Ox 93 L 02/06/19 03:34 - Orders/Labs/Meds Orders: Active Orders 24 hr Category Date Time Status EKG Documentation Completion [RC] STAT Care 02/06/19 02:10 Active RT Aerosol Therapy [RC] ASDIRECTED Care 02/06/19 02:18 Active RT Aerosol Therapy [RC] ASDIRECTED Care 02/06/19 03:09 Active Ang Chest [CT] Stat Exams 02/06/19 03:32 Taken Chest 1V Frontal [CR] Stat Exams 02/06/19 02:10 Taken CULTURE BLOOD [BC] Stat Lab 02/06/19 02:30 Received CULTURE BLOOD [BC] Stat Lab 02/06/19 02:45 Received Sodium Chloride 0.9% [Normal Saline] 1,000 ml Med 02/06/19 03:45 Active IV ASDIRECTED Sodium Chloride 0.9% [Normal Saline] 100 ml Med 02/06/19 04:15 Active IV ASDIRECTED Blood Culture x2 Reflex Set [OM.PC] Stat Oth 02/06/19 02:10 Ordered Medication Orders Sodium Chloride (Normal Saline) 1,000 mls @ 100 mls/hr IV ASDIRECTED SANTOS Last Admin: 02/06/19 04:18 Dose: 100 mls/hr Sodium Chloride (Normal Saline) 100 mls @ 5 mls/sec IV ASDIRECTED SANTOS Last Admin: 02/06/19 04:12 Dose: 5 mls/sec Labs: Laboratory Tests 02/06/19 02/06/19 02/06/19 Range/Units 02:02 02:15 02:30 WBC 10.85 H (4.23-9.07) K/mm3 RBC 4.29 L (4.63-6.08) M/mm3 Hgb 14.0 (13.7-17.5) gm/dl Hct 41.7 (40.1-51.0) % MCV 97.2 H (79.0-92.2) fl MCH 32.6 H (25.7-32.2) pg MCHC 33.6 (32.2-35.5) g/dl RDW Std Deviation 52.4 H (35.1-43.9) fL Plt Count 206 (163-337) K/mm3 MPV 9.7 (9.4-12.3) fl Neutrophils % (Manual) 75 H (40-60) % Band Neutrophils % 0 (0-10) % Lymphocytes % (Manual) 18 L (20-40) % Atypical Lymphs % 0 % Monocytes % (Manual) 6 (2-10) % Eosinophils % (Manual) 0 L (0.8-7.0) % Basophils % (Manual) 1 (0.2-1.2) Platelet Estimate Adequate Plt Morphology Comment Normal RBC Morph Comment Normal D-Dimer, Quantitative (0.19-0.50) mg/L Puncture Site Lt radial ABG pH 7.37 (7.35-7.45) ABG pCO2 48.1 H (35.0-45.0) mmHg ABG pO2 68.0 L (80.0-100.0) mmHg ABG HCO3 27.3 H (22.0-26.0) meq/L ABG O2 Saturation 91.8 L (96.0-97.0) % ABG Base Excess 1.9 (-2-2.0) Oskar Test Positive O2 Delivery Device Simple mask Oxygen Flow Rate 8.0 Sodium (136-145) mEq/L Potassium (3.5-5.1) mEq/L Chloride (98-107) mEq/L Carbon Dioxide (21-32) mEq/L Anion Gap (5-15) BUN (7-18) mg/dL Creatinine (0.7-1.3) mg/dL Est Cr Clr Drug Dosing Estimated GFR (MDRD) (>60) mL/min BUN/Creatinine Ratio (14-18) Glucose (80-115) mg/dL Lactic Acid 1.1 (0.4-2.0) mmol/L Calcium (8.5-10.1) mg/dL Total Bilirubin (0.2-1.0) mg/dL AST (15-37) U/L ALT (16-63) U/L Alkaline Phosphatase (46-116) U/L Troponin I (0.00-0.056) ng/mL NT-Pro-B Natriuret Pep (0-125) pg/mL Total Protein (6.4-8.2) g/dl Albumin (3.4-5.0) g/dl Globulin gm/dL Albumin/Globulin Ratio (1-2) 02/06/19 02/06/19 02/06/19 Range/Units 02:45 02:45 02:45 WBC (4.23-9.07) K/mm3 RBC (4.63-6.08) M/mm3 Hgb (13.7-17.5) gm/dl Hct (40.1-51.0) % MCV (79.0-92.2) fl MCH (25.7-32.2) pg MCHC (32.2-35.5) g/dl RDW Std Deviation (35.1-43.9) fL Plt Count (163-337) K/mm3 MPV (9.4-12.3) fl Neutrophils % (Manual) (40-60) % Band Neutrophils % (0-10) % Lymphocytes % (Manual) (20-40) % Atypical Lymphs % % Monocytes % (Manual) (2-10) % Eosinophils % (Manual) (0.8-7.0) % Basophils % (Manual) (0.2-1.2) Platelet Estimate Plt Morphology Comment RBC Morph Comment D-Dimer, Quantitative 2.11 H (0.19-0.50) mg/L Puncture Site ABG pH (7.35-7.45) ABG pCO2 (35.0-45.0) mmHg ABG pO2 (80.0-100.0) mmHg ABG HCO3 (22.0-26.0) meq/L ABG O2 Saturation (96.0-97.0) % ABG Base Excess (-2-2.0) Oskar Test O2 Delivery Device Oxygen Flow Rate Sodium 140 (136-145) mEq/L Potassium 3.7 (3.5-5.1) mEq/L Chloride 105 (98-107) mEq/L Carbon Dioxide 27 (21-32) mEq/L Anion Gap 11.7 (5-15) BUN 15 (7-18) mg/dL Creatinine 1.4 H (0.7-1.3) mg/dL Est Cr Clr Drug Dosing TNP Estimated GFR (MDRD) 50 (>60) mL/min BUN/Creatinine Ratio 10.7 L (14-18) Glucose 122 H (80-115) mg/dL Lactic Acid (0.4-2.0) mmol/L Calcium 8.7 (8.5-10.1) mg/dL Total Bilirubin 0.7 (0.2-1.0) mg/dL AST 13 L (15-37) U/L ALT 19 (16-63) U/L Alkaline Phosphatase 132 H (46-116) U/L Troponin I < 0.017 (0.00-0.056) ng/mL NT-Pro-B Natriuret Pep 724 H (0-125) pg/mL Total Protein 6.9 (6.4-8.2) g/dl Albumin 3.2 L (3.4-5.0) g/dl Globulin 3.7 gm/dL Albumin/Globulin Ratio 0.9 L (1-2) Meds: Medications Generic Name Dose Route Start Last Admin Trade Name Freq PRN Reason Stop Dose Admin Sodium Chloride 1,000 mls @ 100 mls/hr 02/06/19 03:45 02/06/19 04:18 Normal Saline IV 100 mls/hr ASDIRECTED SANTOS Administration Sodium Chloride 100 mls @ 5 mls/sec 02/06/19 04:15 02/06/19 04:12 Normal Saline IV 5 mls/sec ASDIRECTED SANTOS Administration Discontinued Medications Generic Name Dose Route Start Last Admin Trade Name Noel PRN Reason Stop Dose Admin Albuterol 2.5 mg 02/06/19 03:08 02/06/19 03:32 Proventil Neb Soln NEB 02/06/19 03:09 2.5 mg ONETIME ONE Administration Albuterol/Ipratropium 3 ml 02/06/19 02:18 02/06/19 02:36 Duoneb 3.0-0.5 Mg/3 Ml NEB 02/06/19 02:19 3 ml ONETIME ONE Administration Ampicillin Sodium/Sulbactam 100 mls @ 200 mls/hr 02/06/19 05:03 02/06/19 05: 27 Sodium 3 gm/ Sodium Chloride IV 02/06/19 05:32 200 mls/hr ONETIME STA Administration Iopamidol 100 ml 02/06/19 04:10 02/06/19 04:12 Isovue-370 (76%) IVPUSH 02/06/19 04:11 100 ml ONETIME ONE Administration Prednisone 60 mg 02/06/19 02:18 02/06/19 02:30 Prednisone PO 02/06/19 02:19 60 mg ONETIME STA Administration - Re-Assessments/Exams Free Text/Narrative Re-Assessment/Exam: 02/06/19 02:20 The patient appears to be suffering from a COPD exacerbation. He is currently receiving 8 liters of oxygen via simple mask, saturating at 90% - our goal is to keep it between 88 and 92%. I have ordered an ABG to evaluate his acid-base status and confirm his oxygenation. I have ordered a CBC, lactic acid level, chest x-ray, and 2 sets of blood cultures to evaluate for pneumonia. I have also ordered an ECG, troponin, D-dimer, and BNP to evaluate for other causes of dyspnea and cough. In meantime, the patient will receive prednisone and a DuoNeb , to be followed by albuterol, as needed. 02/06/19 02:42 The patient's ECG confirms that he is in atrial fibrillation, rate controlled. His ECG is unchanged from 09/11/2018. The patient's ABG represents a fully compensated respiratory acidosis with adequate oxygenation while on supplemental oxygen, but an A-a gradient of 523 ( presuming a FiO2 of 1.0). This could be due to advanced emphysema with alveolar destruction, however, in that case, we would expect to see a higher baseline pCO2. It could also be due to a V/Q mismatch, such as with a pulmonary embolus; the D-dimer is still pending. It could also be due to pneumonia, atelectasis, or interstitial disease, such as pulmonary fibrosis, although the patient does not have a known history of pulmonary fibrosis. We will have to see what his chest x-ray looks like. 02/06/19 02:55 Portable chest radiograph reviewed. The cardiac silhouette appears to demonstrate cardiomegaly with an enlarged right cardiac margin, consistent with dextrocardia. No pulmonary vascular congestion. No pleural effusion seen on this AP view. An infiltrate at the inferior aspect of the left upper lobe cannot be excluded. No pneumothorax. There is hyperinflation and modest bilateral diaphragmatic flattening, consistent with COPD. Formal read per the radiologist pending. 02/06/19 03:05 The patient's CBC is remarkable for a WBC count mildly elevated at 10.85, but with 0% bandemia and 75% neutrophilia. His H/H are within normal limits, with macrocytosis and hyperchromia. The remainder of his CBC is unremarkable. 02/06/19 03:09 Following a DuoNeb, the patient states he feels somewhat better, and his lungs sound somewhat improved on auscultation. I will order an albuterol neb. 02/06/19 03:12 The patient's D-dimer has returned significantly elevated at 2.11, however, his CMP/renal function is still pending. His D-dimer was 0.23 on 04/26/2018. 02/06/19 03:33 The patient's CMP has returned remarkable for a Cr of 1.4, and a blood glucose mildly elevated at 122. His alkaline phosphatase is mildly elevated at 132. The remainder of his CMP is unremarkable. His troponin is undetectably low. His BNP is mildly elevated at 724. The patient's lactic acid level is still pending. I have ordered a CT angiogram of the chest to evaluate for a PE. The patient will receive NS at 100 mL per hour, but given his history of CHF, cardiomegaly on his chest x-ray, not-elevated BUN, and mildly elevated BNP, I do not want to be excessive with the IV fluid. 02/06/19 04:07 The patient's lactic acid level is within normal limits at 1.1. 02/06/19 04:56 CT angiogram of the chest is read by [facility] as: 1. No evidence of pulmonary embolism. 2. Near-complete opacification of the bronchus intermedius and bronchi of the right middle and lower lobes. Right middle lobe is completely collapsed and there is atelectasis in the right middle lobe. Bronchial wall thickening and opacification of some bronchi in the posterior right upper lobe. Findings possibly secondary to aspiration. 3. Moderate emphysema. As above, the patient appears to have a blockage of his bronchus intermedius, leading to collapse/atelectasis of his middle lobe, and even though the CT did not indicate atelectasis of the right lower lobe, it would not be aerated either if the blockage is proximal enough to cause atelectasis of the middle lobe. The blockage could be mucus, based on his history and physical exam, or due to aspiration, as the Radiologist suggests. The patient may benefit from bronchoscopy, and will therefore require transfer. In the meantime, I believe it would be prudent to treat for aspiration pneumonia. I will start the patient on Unasyn. 02/06/19 05:06 The above was discussed with the patient. He prefers transfer to [facility]. I will push the portable chest x-ray and CTA images to [facility]. 02/06/19 05:20 Case discussed with Jagruti at [facility] at 05:09. Case then discussed with Dr. Pradhan, Hospitalist at [facility], at 05: 15. She accepted the patient for direct admission to their facility. The patient will be transported by ground ambulance. 02/06/19 05:39 Departure - Departure Time of Disposition: 05:20 Disposition: DC/Tfer to Acute Hospital 02 Clinical Impression: Atrial fibrillation with controlled ventricular response, Bronchial obstruction , Acute hypoxemic respiratory failure - Discharge Information *PRESCRIPTION DRUG MONITORING PROGRAM REVIEWED*: Not Applicable *COPY OF PRESCRIPTION DRUG MONITORING REPORT IN PATIENT DANITZA: Not Applicable Referrals: Ana Benjamin MD [Primary Care Provider] - Forms: ED Department Discharge - My Orders Last 24 Hours: My Active Orders 02/06/19 02:10 EKG Documentation Completion [RC] STAT Chest 1V Frontal [CR] Stat Blood Culture x2 Reflex Set [OM.PC] Stat 02/06/19 02:18 RT Aerosol Therapy [RC] ASDIRECTED 02/06/19 02:30 CULTURE BLOOD [BC] Stat 02/06/19 02:45 CULTURE BLOOD [BC] Stat 02/06/19 03:09 RT Aerosol Therapy [RC] ASDIRECTED 02/06/19 03:32 Ang Chest [CT] Stat 02/06/19 03:45 Sodium Chloride 0.9% [Normal Saline] 1,000 ml IV ASDIRECTED 02/06/19 04:15 Sodium Chloride 0.9% [Normal Saline] 100 ml IV ASDIRECTED - Assessment/Plan Last 24 Hours: My Active Orders 02/06/19 02:10 EKG Documentation Completion [RC] STAT Chest 1V Frontal [CR] Stat Blood Culture x2 Reflex Set [OM.PC] Stat 02/06/19 02:18 RT Aerosol Therapy [RC] ASDIRECTED 02/06/19 02:30 CULTURE BLOOD [BC] Stat 02/06/19 02:45 CULTURE BLOOD [BC] Stat 02/06/19 03:09 RT Aerosol Therapy [RC] ASDIRECTED 02/06/19 03:32 Ang Chest [CT] Stat 02/06/19 03:45 Sodium Chloride 0.9% [Normal Saline] 1,000 ml IV ASDIRECTED 02/06/19 04:15 Sodium Chloride 0.9% [Normal Saline] 100 ml IV ASDIRECTED
[2019-02-06] MEDS ORDERED: Albuterol 0.083% 2.5 MG/3 ML Neb Soln NEB ONE (03:08)
[2019-02-06] MEDS ORDERED: Sodium Chloride 0.9% 1,000 ML IV SCH (03:45)
[2019-02-06] MEDS ORDERED: Iopamidol 755 Mg/ML 100 ML Bottle IVPUSH ONE (04:10)
[2019-02-06] MEDS ORDERED: Sodium Chloride 0.9% 100 ML IV SCH (04:15)
[2019-02-06] MEDS ORDERED: Ampicillin/Sulbactam Na 3 GM in Sodium Chloride 0.9% 100 ML IV STA (05:03)
--- NOTE | 2019-02-06 14:05 | CR ---
Chest: Portable view of the chest was obtained. Comparison: Prior chest x-ray of 09/11/18. Right heart is enlarged. This is stable from previous exam. Tortuous thoracic aorta is also noted. Lungs are clear with no acute parenchymal change. Impression: 1. Enlarged right heart which is stable from previous exam. 2. No acute intrathoracic process is appreciated on portable chest x-ray. Diagnostic code #2
--- NOTE | 2019-02-06 14:08 | CT ---
CT chest Technique: Multiple axial sections were obtained from above the lung apices inferiorly through the lung bases. Intravenous contrast was utilized. Study performed as a pulmonary angiogram protocol. Comparison: Prior CT chest study of 10/18/16. Findings: Heart is enlarged and is positioned to the right side of the chest. This is a stable finding. Focal consolidation is noted within the right lower lung which mostly appears to be the right middle lobe. Pulmonary arteries show no filling defects of pulmonary embolism. Mild coronary artery calcification is noted. Diffuse emphysematous change is seen. Mild fibrosis is noted within the right lung base which is stable. Bone window settings were reviewed which show no acute osseous abnormality. Impression: 1. Focal consolidation within the right base most likely within the right middle lobe. Findings most likely due to collapse of the right middle lobe. This is an interval change from prior chest CT and may relate to aspiration. 2. No findings of pulmonary embolism. 3. Emphysematous change and mild stable right basilar fibrosis. Diagnostic code #3 I agree with preliminary report from [facility], finalized on 02/06/19, 5:52 AM Central Time
== END 2019-02-06 05:54 ==
LOC: JD.ED 02:02
DX: I48.91 Unspecified atrial fibrillation (principal); J98.09 Other diseases of bronchus, not elsewhere classified; J96.01 Acute respiratory failure with hypoxia; Z87.891 Personal history of nicotine dependence
CPT/HCPCS: 36415; 36600; 71045; 71045-26; 71275; 71275-26; 80053; 82803; 83605; 83880; 84484; 85007; 85027; 85379; 87040; 93005; 93010; 94640; 96360; 99285; 99285-25; A9270-GY; J0295; J7030; J7040; J7620-GY; Q9967

== ENCOUNTER 2019-04-14 15:09 | Observation (INO) | payer OTHER ==
[2019-04-14] MEDS ORDERED: Albuterol/Ipratropium 3.0-0.5 MG/3 ML Neb Soln NEB ONE (15:42)
--- NOTE | 2019-04-14 15:42 | EDM.PDOC ---
ED HPI GENERAL MEDICAL PROBLEM - General Chief Complaint: Respiratory Problem Stated Complaint: SOB Time Seen by Provider: 04/14/19 15:22 Source of Information: Reports: Patient History Limitations: Reports: No Limitations - History of Present Illness INITIAL COMMENTS - FREE TEXT/NARRATIVE: Patient is a 5-year-old male who presents with complaints of generalized body aches, headache, cough, chills, congestion, and shortness of breath. He states the symptoms began about 3:00 this morning. He awoke diaphoretic and chilled. Since that time he's been congested and had generalized body aches. He states he checked his temperature at home at 3:00 and it was around 100.0. [facility] go [facility] and was sent here. He states he has a little bit of a cough, but not bad. He is coughing up some clear to yellow sputum. He has been using his albuterol nebulizer and inhalers. Last nebulizer treatment was about 1:00 this afternoon. Patient does have a very significant history of COPD as well as chronic shortness of breath. He states that his oxygen saturations normally are about 90-91% on room air. He denies any nausea vomiting or diarrhea. Headache Pain Score (Numeric/FACES): 9 - Related Data Allergies Allergy/AdvReac Type Severity Reaction Status Date / Time acetaminophen [From Tylenol] Allergy Airway Verified 02/26/19 02:27 Tightness aspirin Allergy Airway Verified 02/26/19 02:27 Tightness horseradish Allergy Airway Verified 02/26/19 02:27 Tightness ibuprofen Allergy Airway Verified 02/26/19 02:27 Tightness meperidine HCl [From Demerol] Allergy Airway Verified 02/26/19 02:27 Tightness morphine Allergy Itching Verified 02/26/19 02:27 oxycodone Allergy Rash Verified 02/26/19 02:27 sumatriptan [From Imitrex] Allergy Cannot Verified 02/26/19 02:27 Remember sumatriptan succinate Allergy Cannot Verified 02/26/19 02:27 [From Imitrex] Remember haloperidol [From Haldol] AdvReac Change Verified 02/26/19 02:27 Mental Status haloperidol lactate AdvReac Change Verified 02/26/19 02:27 [From Haldol] Mental Status ketorolac tromethamine AdvReac Change Verified 02/26/19 02:27 [From Toradol] Mental Status antihistamines Allergy Airway Uncoded 02/26/19 02:33 Tightness Home Meds: Home Meds Clopidogrel [Plavix] 75 mg PO DAILY 04/12/14 [History] Furosemide [Lasix] 40 mg PO DAILY 04/12/14 [History] PARoxetine HCl [Paxil] 20 mg PO DAILY 04/12/14 [History] Potassium Chloride 10 meq PO BID 04/12/14 [History] Tamsulosin HCl [Flomax] 0.4 mg PO BID 04/12/14 [History] Tiotropium [Spiriva HandiHaler] 1 cap INH DAILY 04/12/14 [History] Simvastatin [Zocor] 20 mg PO BEDTIME 02/03/15 [History] Apixaban [Eliquis] 5 mg PO BID 01/23/16 [History] Budesonide/Formoterol [Symbicort 160-4.5 MCG] 2 puff INH BID 01/23/16 [History] Verapamil [Calan SR] 120 mg PO BID 01/23/16 [History] Albuterol Sulfate 1 vial INH Q6H 10/18/16 [History] Albuterol Sulfate [Proair Respiclick] 2 puff INH Q4H PRN 10/18/16 [History] ClonazePAM [KlonoPIN] 1 mg PO BEDTIME 10/18/16 [History] Ipratropium Norton 1 spray NASBOTH BID 10/18/16 [History] Ranitidine [Zantac] 300 mg PO QAM 10/18/16 [History] Cholecalciferol (Vitamin D3) [Vitamin D] 1,000 unit PO BID 04/13/17 [History] Mirtazapine 30 mg PO BEDTIME 04/13/17 [History] Magnesium Oxide 420 mg PO BEDTIME 02/19/18 [History] ClonazePAM [KlonoPIN] 0.5 mg PO ACBREAKFAST 02/06/19 [History] Past Medical History HEENT History: Reports: Impaired Vision Other HEENT History: wears eyeglasses and upper/lower dentures Cardiovascular History: Reports: Afib, CAD, High Cholesterol, Hypertension, RI, Other (See Below) Other Cardiovascular History: stents in 1999, 5 RI Respiratory History: Reports: COPD, Sleep Apnea Gastrointestinal History: Reports: GERD, PUD Genitourinary History: Reports: BPH Musculoskeletal History: Reports: None Neurological History: Reports: Headaches, Chronic Psychiatric History: Reports: Anxiety, Depression, PTSD Endocrine/Metabolic History: Reports: Obesity/BMI 30+ Other Endocrine/Metabolic History: boardline diabetic- checks AM BS daily Hematologic History: Reports: B12 Deficiency - Infectious Disease History Infectious Disease History: Reports: Chicken Pox, Measles, Mumps - Past Surgical History Head Surgeries/Procedures: Reports: None HEENT Surgical History: Reports: Cataract Surgery, Other (See Below) Other HEENT Surgeries/Procedures: OU Respiratory Surgical History: Reports: None GI Surgical History: Reports: Appendectomy, Colonoscopy, EGD Male Surgical History: Reports: Other (See Below) Other Male Surgeries/Procedures: testicle removed Endocrine Surgical History: Reports: None Neurological Surgical History: Reports: None Musculoskeletal Surgical History: Reports: Hip Replacement, Other (See Below) Other Musculoskeletal Surgeries/Procedures:: bilateral hip replacements Social & Family History - Family History Family Medical History: Noncontributory Oncologic: Reports: Leukemia Other Oncologic Family History: Brother - Tobacco Use Smoking Status *Q: Former Smoker Used Tobacco, but Quit: Yes Month/Year Tobacco Last Used: 10 yr - Caffeine Use Caffeine Use: Reports: Soda Other Caffeine Use: 2/day - Recreational Drug Use Recreational Drug Use: No - Living Situation & Occupation Living situation: Reports: , with Spouse Occupation: Retired ED ROS GENERAL - Review of Systems Review Of Systems: See Below Constitutional: Reports: Chills, Night Sweats, Other (Generalized body aches) HEENT: Reports: Rhinitis, Other (Sinus congestion) Respiratory: Reports: Shortness of Breath, Wheezing, Cough Cardiovascular: Reports: No Symptoms Endocrine: Reports: No Symptoms GI/Abdominal: Reports: No Symptoms : Reports: No Symptoms Musculoskeletal: Reports: No Symptoms Skin: Reports: No Symptoms Neurological: Reports: Headache Psychiatric: Reports: No Symptoms Hematologic/Lymphatic: Reports: No Symptoms Immunologic: Reports: No Symptoms ED EXAM, GENERAL - Physical Exam Exam: See Below Exam Limited By: No Limitations General Appearance: Alert, WD/WN, No Apparent Distress Eye Exam: Bilateral Eye: PERRL Throat/Mouth: Normal Inspection, Normal Oropharynx Head: Atraumatic, Normocephalic Respiratory/Chest: No Respiratory Distress, No Accessory Muscle Use, Chest Non- Tender, Decreased Breath Sounds, Wheezing (expiratory throughout) Cardiovascular: Normal Peripheral Pulses, Regular Rate, Rhythm, No Edema, No JVD , No Murmur Extremities: Normal Inspection, No Pedal Edema Neurological: Alert, Oriented, Normal Cognition Psychiatric: Normal Affect, Normal Mood Skin Exam: Warm, Dry, Intact, Normal Color, No Rash Lymphatic: No Adenopathy EKG INTERPRETATION EKG Date: 04/14/19 Time: 17:15 Rhythm: A-Fib Rate (Beats/Min): 98 Lavina: Normal P-Wave: Absent QRS: Normal ST-T: Normal QT: Normal Course - Vital Signs Last Recorded V/S: Last Vital Signs Temp 97.7 F 04/14/19 15:26 Pulse 108 H 04/14/19 15:26 Resp 19 04/14/19 15:26 BP 139/96 H 04/14/19 15:26 Pulse Ox 93 L 04/14/19 15:42 - Orders/Labs/Meds Orders: Active Orders 24 hr Category Date Time Status Patient Status [ADT] Routine ADT 04/14/19 18:08 Active EKG Documentation Completion [RC] STAT Care 04/14/19 17:07 Active RT Aerosol Therapy [RC] ASDIRECTED Care 04/14/19 15:42 Active Azithromycin [Zithromax] 500 mg Med 04/14/19 17:34 Active Sodium Chloride 0.9% [Normal Saline] 250 ml IV ONETIME Medication Orders Azithromycin 500 mg/ Sodium (Chloride) 250 mls @ 250 mls/hr IV ONETIME ONE Stop: 04/14/19 18:33 Last Admin: 04/14/19 17:58 Dose: 250 mls/hr Labs: Laboratory Tests 04/14/19 04/14/19 04/14/19 Range/Units 15:55 15:55 15:55 WBC 7.38 (4.23-9.07) K/mm3 RBC 4.17 L (4.63-6.08) M/mm3 Hgb 13.7 D (13.7-17.5) gm/dl Hct 41.4 (40.1-51.0) % MCV 99.3 H (79.0-92.2) fl MCH 32.9 H (25.7-32.2) pg MCHC 33.1 (32.2-35.5) g/dl RDW Std Deviation 55.3 H (35.1-43.9) fL Plt Count 194 (163-337) K/mm3 MPV 9.0 L (9.4-12.3) fl Neut % (Auto) 73.6 H (34.0-67.9) % Lymph % (Auto) 11.1 L (21.8-53.1) % Gonzales % (Auto) 11.1 (5.3-12.2) % Eos % (Auto) 3.5 (0.8-7.0) Baso % (Auto) 0.4 (0.1-1.2) % Neut # (Auto) 5.43 H (1.78-5.38) K/mm3 Lymph # (Auto) 0.82 L (1.32-3.57) K/mm3 Gonzales # (Auto) 0.82 (0.30-0.82) K/mm3 Eos # (Auto) 0.26 (0.04-0.54) K/mm3 Baso # (Auto) 0.03 (0.01-0.08) K/mm3 Sodium 139 (136-145) mEq/L Potassium 3.5 (3.5-5.1) mEq/L Chloride 101 (98-107) mEq/L Carbon Dioxide 28 (21-32) mEq/L Anion Gap 13.5 (5-15) BUN 10 (7-18) mg/dL Creatinine 1.2 (0.7-1.3) mg/dL Est Cr Clr Drug Dosing 51.69 mL/min Estimated GFR (MDRD) 60 (>60) mL/min BUN/Creatinine Ratio 8.3 L (14-18) Glucose 108 (80-115) mg/dL Calcium 8.7 (8.5-10.1) mg/dL Total Bilirubin 0.6 (0.2-1.0) mg/dL AST 14 L (15-37) U/L ALT 23 (16-63) U/L Alkaline Phosphatase 121 H (46-116) U/L Troponin I (0.00-0.056) ng/mL NT-Pro-B Natriuret Pep 756 H (0-125) pg/mL Total Protein 6.7 (6.4-8.2) g/dl Albumin 3.2 L (3.4-5.0) g/dl Globulin 3.5 gm/dL Albumin/Globulin Ratio 0.9 L (1-2) 04/14/19 Range/Units 15:55 WBC (4.23-9.07) K/mm3 RBC (4.63-6.08) M/mm3 Hgb (13.7-17.5) gm/dl Hct (40.1-51.0) % MCV (79.0-92.2) fl MCH (25.7-32.2) pg MCHC (32.2-35.5) g/dl RDW Std Deviation (35.1-43.9) fL Plt Count (163-337) K/mm3 MPV (9.4-12.3) fl Neut % (Auto) (34.0-67.9) % Lymph % (Auto) (21.8-53.1) % Gonzales % (Auto) (5.3-12.2) % Eos % (Auto) (0.8-7.0) Baso % (Auto) (0.1-1.2) % Neut # (Auto) (1.78-5.38) K/mm3 Lymph # (Auto) (1.32-3.57) K/mm3 Gonzales # (Auto) (0.30-0.82) K/mm3 Eos # (Auto) (0.04-0.54) K/mm3 Baso # (Auto) (0.01-0.08) K/mm3 Sodium (136-145) mEq/L Potassium (3.5-5.1) mEq/L Chloride (98-107) mEq/L Carbon Dioxide (21-32) mEq/L Anion Gap (5-15) BUN (7-18) mg/dL Creatinine (0.7-1.3) mg/dL Est Cr Clr Drug Dosing mL/min Estimated GFR (MDRD) (>60) mL/min BUN/Creatinine Ratio (14-18) Glucose (80-115) mg/dL Calcium (8.5-10.1) mg/dL Total Bilirubin (0.2-1.0) mg/dL AST (15-37) U/L ALT (16-63) U/L Alkaline Phosphatase (46-116) U/L Troponin I < 0.017 (0.00-0.056) ng/mL NT-Pro-B Natriuret Pep (0-125) pg/mL Total Protein (6.4-8.2) g/dl Albumin (3.4-5.0) g/dl Globulin gm/dL Albumin/Globulin Ratio (1-2) Meds: Medications Generic Name Dose Route Start Last Admin Trade Name Noel PRN Reason Stop Dose Admin Azithromycin 500 mg/ Sodium 250 mls @ 250 mls/hr 04/14/19 17:34 04/14/19 17: 58 Chloride IV 04/14/19 18:33 250 mls/hr ONETIME ONE Administration Discontinued Medications Generic Name Dose Route Start Last Admin Trade Name Estivenq PRN Reason Stop Dose Admin Albuterol/Ipratropium 3 ml 04/14/19 15:42 04/14/19 16:08 Duoneb 3.0-0.5 Mg/3 Ml NEB 04/14/19 15:43 3 ml ONETIME ONE Administration Hydromorphone HCl 0.5 mg 04/14/19 17:16 04/14/19 17:27 Dilaudid IVPUSH 04/14/19 17:17 0.5 mg ONETIME ONE Administration Methylprednisolone Sodium Succinate 125 mg 04/14/19 17:20 04/14/19 17:32 Solu-Medrol IVPUSH 04/14/19 17:21 125 mg ONETIME ONE Administration - Re-Assessments/Exams Free Text/Narrative Re-Assessment/Exam: Patient is a 68-year-old male with a long history of COPD respiratory problems. He was saturating low 90s on room air initially, however saturation did drop to 86% while resting. O2 was applied at 2 L via nasal cannula. He is afebrile at this time, but does complain of a headache and continued generalized body aches. Will complete a workup including a CBC, CMP, proBNP, influenza screening , 2 view chest x-ray, and DuoNeb. 04/14/19 16:56 Patient was oxygenating 96% on 2 L by nasal cannula. We will attempt to wean him off the oxygen as he states his normal SPO2 at home is anywhere from 89-91% on room air. He does have oxygen at home and wears it at night. 04/14/19 0220 [facility]. [facility] states that the patient had described to them an episode of chest pain, however he did not mention that to me. I discussed this with the patient he states he did have an episode of chest pain prior to going to the [place] said it felt like heartburn and caused his left arm to go numb. He said he took a nitroglycerin after that and the symptoms improved. He no longer has chest pain. He also describes that he has had intermittent dizziness with this. His major complaint right now is his headache and his generalized body aches. His influenza screen was negative and his lab work thus far has been grossly unremarkable, however feel that he may still have influenza despite the negative screen. Chest x-ray was negative for any infiltrates or acute findings. Patient does not feel like he is able to go home in the condition he is in as there are no oral medications that he can take for his headache and body aches. He states the only that he can take for pain is Dilaudid because he is allergic to everything else. Dilaudid is a listed as an allergy for him, however he states that he received a numerous times during his last admission and he has had no problems with that medication. Review of his previous admission he did receive 5 doses of 0.5 mg of Dilaudid during his stay with no reaction. I will remove Dilaudid as an allergy for him. I have ordered a troponin as well as an EKG. His oxygen saturation did drop to 82% and he was visibly winded while talking to me. Oxygen has been reapplied at 2 L via nasal cannula. Once I have all results I will contact the hospitalist to discuss possible admission for hypoxia, likely viral illness, and COPD exacerbation. I will order a dose of Solu-Medrol and IV azithromycin for COPD exacerbation. 04/14/19 17:42 Patient's troponin came back negative and there is no acute changes on his EKG. I did discuss the case with hospitalist, Dr. Rincon. Patient will be admitted for observation for hypoxia and COPD exacerbation. Departure - Departure Time of Disposition: 17:43 Disposition: Refer to Observation Condition: Fair Clinical Impression: COPD exacerbation - Discharge Information *PRESCRIPTION DRUG MONITORING PROGRAM REVIEWED*: No *COPY OF PRESCRIPTION DRUG MONITORING REPORT IN PATIENT DANITZA: No Referrals: Ana Benjamin MD [Primary Care Provider] - Forms: ED Department Discharge Sepsis Event Note - Evaluation Sepsis Screening Result: No Definite Risk - Focused Exam Vital Signs: Vital Signs Temp Pulse Resp BP Pulse Ox Pulse Ox 04/14/19 15:42 93 L 04/14/19 15:26 97.7 F 108 H 19 139/96 H 92 L Date Exam was Performed: 04/14/19 Time Exam was Performed: 18:22 - My Orders Last 24 Hours: My Active Orders 04/14/19 15:42 RT Aerosol Therapy [RC] ASDIRECTED 04/14/19 17:07 EKG Documentation Completion [RC] STAT 04/14/19 17:34 Azithromycin [Zithromax] 500 mg Sodium Chloride 0.9% [Normal Saline] 250 ml IV ONETIME 04/14/19 18:08 Patient Status [ADT] Routine - Assessment/Plan Last 24 Hours: My Active Orders 04/14/19 15:42 RT Aerosol Therapy [RC] ASDIRECTED 04/14/19 17:07 EKG Documentation Completion [RC] STAT 04/14/19 17:34 Azithromycin [Zithromax] 500 mg Sodium Chloride 0.9% [Normal Saline] 250 ml IV ONETIME 04/14/19 18:08 Patient Status [ADT] Routine
--- NOTE | 2019-04-14 16:52 | CR ---
Chest: 2 views of the chest were obtained. Comparison: Previous chest x-ray of 02/26/19. Heart is enlarged with prominence of the right side of the cardiac silhouette which is stable. Slight atelectasis is noted within the right midlung. Lungs otherwise are clear. Diaphragms are flattened on the lateral view suggesting emphysematous change. Bony structures are grossly intact. Impression: 1. Slight atelectasis with right midlung. 2. Stable cardiomegaly. 3. Nothing acute is otherwise seen. Diagnostic code #2 This report was dictated in [place] Standard Time
[2019-04-14] MEDS ORDERED: HYDROmorphone 0.5 MG/0.5 ML Syringe IVPUSH ONE (17:16)
[2019-04-14] MEDS ORDERED: methylPREDNISolone Sodium Succinate 125 MG/2 ML SDV IVPUSH ONE (17:20)
[2019-04-14] MEDS ORDERED: Azithromycin 500 MG in Sodium Chloride 0.9% 250 ML IV ONE (17:34)
--- NOTE | 2019-04-14 17:35 | PCM.HP.2 ---
H&P History of Present Illness - General Date of Service: 04/14/19 Source of Information: Patient, Provider, RN Notes Reviewed History Limitations: Reports: No Limitations - History of Present Illness Initial Comments - Free Text/Narative: This is a 68 yo elderly white male with past medical hx/o Impaired Vision, Afib on Eliquis, CAD, HTN, Hx/o [place] S/p Stent Placement x 5, COPD, SWAPNIL, GERD, PUD, BPH , CARDENAS, Borderline Diabetes, Vit B12 Deficiency, Anxiety, Depression, PTSD and Obesity who comes to ED for further evaluation of flu-like symptoms that began at about 3 AM this morning. He states he woke up with "cold sweats" associated with generalized body aches, headache, productive cough, chills, congestion, and shortness of breath. He took some medicines but w/o any relief. [facility] was [facility] here for further evaluation. His initial work up in ED shows a fairly unremarkable WBC and Chemistry. His chest x-ray report read as mild atelectasis within the right midlung. Patient received initial treatment in ED prior to coming in for further management. Headache Pain Score (Numeric/FACES): 9 - Related Data Allergies/Adverse Reactions: Allergies Allergy/AdvReac Type Severity Reaction Status Date / Time acetaminophen [From Tylenol] Allergy Airway Verified 02/26/19 02:27 Tightness aspirin Allergy Airway Verified 04/14/19 20:41 Tightness horseradish Allergy Airway Verified 04/14/19 20:41 Tightness ibuprofen Allergy Airway Verified 04/14/19 20:41 Tightness meperidine HCl [From Demerol] Allergy Airway Verified 04/14/19 20:41 Tightness morphine Allergy Itching Verified 04/14/19 20:41 oxycodone Allergy Rash Verified 04/14/19 20:41 sumatriptan [From Imitrex] Allergy Cannot Verified 04/14/19 20:41 Remember sumatriptan succinate Allergy Cannot Verified 04/14/19 20:41 [From Imitrex] Remember haloperidol [From Haldol] AdvReac Change Verified 04/14/19 20:41 Mental Status haloperidol lactate AdvReac Change Verified 04/14/19 20:41 [From Haldol] Mental Status ketorolac tromethamine AdvReac Change Verified 04/14/19 20:41 [From Toradol] Mental Status antihistamines Allergy Airway Uncoded 04/14/19 20:41 Tightness Home Medications: Home Meds Clopidogrel [Plavix] 75 mg PO DAILY 04/12/14 [History] Furosemide [Lasix] 40 mg PO DAILY 04/12/14 [History] PARoxetine HCl [Paxil] 20 mg PO DAILY 04/12/14 [History] Potassium Chloride 10 meq PO BID 04/12/14 [History] Tamsulosin HCl [Flomax] 0.4 mg PO BID 04/12/14 [History] Tiotropium [Spiriva HandiHaler] 1 cap INH DAILY 04/12/14 [History] Simvastatin [Zocor] 20 mg PO BEDTIME 02/03/15 [History] Apixaban [Eliquis] 5 mg PO BID 01/23/16 [History] Budesonide/Formoterol [Symbicort 160-4.5 MCG] 2 puff INH BID 01/23/16 [History] Verapamil [Calan SR] 120 mg PO BID 01/23/16 [History] Albuterol Sulfate [Proair Respiclick] 2 puff INH Q4H PRN 10/18/16 [History] ClonazePAM [KlonoPIN] 1 mg PO BEDTIME 10/18/16 [History] Ipratropium [place] 1 spray NASBOTH BID 10/18/16 [History] Ranitidine [Zantac] 300 mg PO QAM 10/18/16 [History] Cholecalciferol (Vitamin D3) [Vitamin D] 1,000 unit PO BID 04/13/17 [History] Mirtazapine 30 mg PO BEDTIME 04/13/17 [History] Magnesium Oxide 420 mg PO BEDTIME 02/19/18 [History] ClonazePAM [KlonoPIN] 0.5 mg PO ACBREAKFAST 02/06/19 [History] Albuterol Sulfate 2.5 mg IH Q6HR 04/14/19 [History] Past Medical History HEENT History: Reports: Impaired Vision Other HEENT History: wears eyeglasses and upper/lower dentures Cardiovascular History: Reports: Afib, CAD, High Cholesterol, Hypertension, OH, Other (See Below) Other Cardiovascular History: stents in 1999, 5 OH Respiratory History: Reports: COPD, Sleep Apnea Gastrointestinal History: Reports: GERD, PUD Genitourinary History: Reports: BPH Musculoskeletal History: Reports: None Neurological History: Reports: Headaches, Chronic Psychiatric History: Reports: Anxiety, Depression, PTSD Endocrine/Metabolic History: Reports: Obesity/BMI 30+ Other Endocrine/Metabolic History: boardline diabetic- checks AM BS daily Hematologic History: Reports: B12 Deficiency - Infectious Disease History Infectious Disease History: Reports: Chicken Pox, Measles, Mumps - Past Surgical History Head Surgeries/Procedures: Reports: None HEENT Surgical History: Reports: Cataract Surgery, Other (See Below) Other HEENT Surgeries/Procedures: OU Respiratory Surgical History: Reports: None GI Surgical History: Reports: Appendectomy, Colonoscopy, EGD Male Surgical History: Reports: Other (See Below) Other Male Surgeries/Procedures: testicle removed Endocrine Surgical History: Reports: None Neurological Surgical History: Reports: None Musculoskeletal Surgical History: Reports: Hip Replacement, Other (See Below) Other Musculoskeletal Surgeries/Procedures:: bilateral hip replacements Social & Family History - Family History Family Medical History: Noncontributory Oncologic: Reports: Leukemia Other Oncologic Family History: Brother - Tobacco Use Smoking Status *Q: Former Smoker Used Tobacco, but Quit: Yes Month/Year Tobacco Last Used: 10 yr - Caffeine Use Caffeine Use: Reports: Soda Other Caffeine Use: 2/day - Recreational Drug Use Recreational Drug Use: No - Living Situation & Occupation Living situation: Reports: , with Spouse Occupation: Retired H&P Review of Systems - Review of Systems: Review Of Systems: Comprehensive ROS is negative, except as noted in HPI. Exam - Exam Exam: See Below - Vital Signs Vital Signs: Last Vital Signs Temp 36.5 C 04/14/19 15:26 Pulse 108 H 04/14/19 15:26 Resp 19 04/14/19 15:26 BP 139/96 H 04/14/19 15:26 Pulse Ox 93 L 04/14/19 15:42 Weight: 90.265 kg - Exam General: Alert, Oriented, Cooperative, Other (Obese) HEENT: Conjunctiva Clear, EACs Clear, EOMI, Hearing Intact, Normal Nasal Septum , Posterior Pharynx Clear, Pupils Equal, Pupils Reactive, Other (no nasal tenderness) Neck: Supple, Trachea Midline, +2 Carotid Pulse wo Bruit, Full Range of Motion Lungs: Normal Respiratory Effort, Rhonchi (on posterior left lung), Wheezing Cardiovascular: Regular Rate, Regular Rhythm GI/Abdominal Exam: Normal Bowel Sounds, Soft, Non-Tender, No Organomegaly, No Distention, No Abnormal Bruit (Male) Exam: Deferred Rectal (Males) Exam: Deferred Back Exam: Normal Inspection, Decreased Range of Motion Extremities: Normal Inspection, Normal Range of Motion, Non-Tender, No Pedal Edema, Normal Capillary Refill Peripheral Pulses: 2+: Dorsalis Pedis (L), Dorsalis Pedis (R) Skin: Warm, Dry, Intact Neuro Extensive - Mental Status: Oriented x3, Normal Cognition, Memory Intact Neuro Extensive - Motor, Sensory, Reflexes: CN II-XII Intact, Normal Gait Psychiatric: Alert, Normal Affect, Normal Mood - Patient Data Lab Results Last 24 hrs: Laboratory Results - last 24 hr 04/14/19 04/14/19 04/14/19 Range/Units 15:55 15:55 15:55 WBC 7.38 (4.23-9.07) K/mm3 RBC 4.17 L (4.63-6.08) M/mm3 Hgb 13.7 D (13.7-17.5) gm/dl Hct 41.4 (40.1-51.0) % MCV 99.3 H (79.0-92.2) fl MCH 32.9 H (25.7-32.2) pg MCHC 33.1 (32.2-35.5) g/dl RDW Std Deviation 55.3 H (35.1-43.9) fL Plt Count 194 (163-337) K/mm3 MPV 9.0 L (9.4-12.3) fl Neut % (Auto) 73.6 H (34.0-67.9) % Lymph % (Auto) 11.1 L (21.8-53.1) % [place] % (Auto) 11.1 (5.3-12.2) % Eos % (Auto) 3.5 (0.8-7.0) Baso % (Auto) 0.4 (0.1-1.2) % Neut # (Auto) 5.43 H (1.78-5.38) K/mm3 Lymph # (Auto) 0.82 L (1.32-3.57) K/mm3 [place] # (Auto) 0.82 (0.30-0.82) K/mm3 Eos # (Auto) 0.26 (0.04-0.54) K/mm3 Baso # (Auto) 0.03 (0.01-0.08) K/mm3 Sodium 139 (136-145) mEq/L Potassium 3.5 (3.5-5.1) mEq/L Chloride 101 (98-107) mEq/L Carbon Dioxide 28 (21-32) mEq/L Anion Gap 13.5 (5-15) BUN 10 (7-18) mg/dL Creatinine 1.2 (0.7-1.3) mg/dL Est Cr Clr Drug Dosing 51.69 mL/min Estimated GFR (MDRD) 60 (>60) mL/min BUN/Creatinine Ratio 8.3 L (14-18) Glucose 108 (80-115) mg/dL Calcium 8.7 (8.5-10.1) mg/dL Total Bilirubin 0.6 (0.2-1.0) mg/dL AST 14 L (15-37) U/L ALT 23 (16-63) U/L Alkaline Phosphatase 121 H (46-116) U/L Troponin I < 0.017 (0.00-0.056) ng/mL Total Protein 6.7 (6.4-8.2) g/dl Albumin 3.2 L (3.4-5.0) g/dl Globulin 3.5 gm/dL Albumin/Globulin Ratio 0.9 L (1-2) Result Diagrams: 04/15/19 05:08 04/15/19 05:08 Robert Results Last 24 hrs: Microbiology 04/14/19 15:42 Influenza Type A Antigen Screen - Final Nasal, Unspecified NEGATIVE INFLUENZA A VIRUS AG REFERENCE RANGE: NEGATIVE Influenza Type B Antigen Screen - Final NEGATIVE INFLUENZA B VIRUS AG REFERENCE RANGE: NEGATIVE Sepsis Event Note - Evaluation Sepsis Screening Result: No Definite Risk - Focused Exam Vital Signs: Vital Signs Temp Pulse Resp BP Pulse Ox Pulse Ox 04/14/19 15:42 93 L 04/14/19 15:26 36.5 C 108 H 19 139/96 H 92 L Date Exam was Performed: 04/15/19 Time Exam was Performed: 13:28 Problem List Initiated/Reviewed/Updated: Yes Orders Last 24hrs: Active Orders 24 hr Category Date Time Status EKG Documentation Completion [RC] STAT Care 04/14/19 17:07 Active RT Aerosol Therapy [RC] ASDIRECTED Care 04/14/19 15:42 Active PRO B-TYPE NATRIUR PEPT,BNPPRO [CHEM] Stat Lab 04/14/19 15:55 Received Assessment/Plan Comment:: Acute: Viral Illness. Woke up this morning at 3AM with cold sweats. He treated himself but w/o much relief. Still congested with generalized body aches. RVP and Supportive care URI. Congestion, CARDENAS cough and chills. Cannot r/o viral. Supportive Care, PRN Afrin Q12H for nasal decongestion, and Guaifenesin/Dextromethorphan 10 mg po Q6H PRN for chest congestion. COPD Exacerbation. Received one breathing treatment in ED. Plan: IV Solumedrol, Scheduled and PRN bronchodilators, Anti-inflammatory agent, Decongestant/ Expectorant, Sputum Cx, IS as directed, Routine RT care and Serial CX as indicated. Hypoxia requiring supplemental O2. 2/2 Above. Treatment as above. Right Midlung Atelectasis. IS as directed and Pulmonary exercise. Mildly Elevated ProBNP Level of 756. Will monitor. Obesity Class I. BMI of 32. Advised LSM. Dietary consult for weight management. Chronic: Impaired Vision, Afib on Eliquis, CAD, HTN, Hx/o [place] S/p Stent Placement x 5, COPD, SWAPNIL, GERD, PUD, BPH, CARDENAS, Borderline Diabetes, Vit B12 Deficiency, Anxiety, Depression, PTSD and Obesity Plan: Admit for the floor with Tele. Routine AM labs. Sepsis work up and Viral Panel. IVF for hydration. PRN meds for symptomatic control. Continue home meds once verified. PT/OT for deconditioning. RT to assess respiratory status and treat as needed. DVT/Stroke Prophylaxis. Code status is full - Mortality Measure Prognosis:: Good
[2019-04-14] MEDS ORDERED: Temazepam 7.5 MG Cap PO PRN (21:16)
[2019-04-14] MEDS ORDERED: Docusate Sodium 100 MG Cap PO PRN (21:16)
[2019-04-14] MEDS ORDERED: Promethazine 6.25 MG in Sodium Chloride 0.9% 50 ML IV PRN (21:16)
[2019-04-14] MEDS ORDERED: Bisacodyl 5 MG Tab PO PRN (21:16)
[2019-04-14] MEDS ORDERED: Albuterol/Ipratropium 3.0-0.5 MG/3 ML Neb Soln NEB PRN (21:16)
[2019-04-14] MEDS ORDERED: Polyethylene Glycol 3350 Powder 17 GM Packet PO PRN (21:16)
[2019-04-14] MEDS ORDERED: ALBUTEROL SULFATE INH SCH (21:30)
[2019-04-14] MEDS ORDERED: Acetaminophen/Butalbital/Caffeine 325-50-40 MG Tab PO PRN (22:19)
[2019-04-14] MEDS: HYDROmorphone 0.5 MG/0.5 ML Syringe IVPUSH PRN (23:15)
[2019-04-14] MEDS: Oxymetazoline 0.05% Nasal Spray 30 ML Bottle NAS PRN (23:17)
[2019-04-15] MEDS: Albuterol 0.083% 2.5 MG/3 ML Neb Soln NEB SCH ×6 (00:17→21:41)
[2019-04-15] MEDS: ClonazePAM 0.5 MG Tab PO SCH (05:26)
[2019-04-15] MEDS ORDERED: Formoterol/Mometasone 200-5 MCG 8.8 GM Inhaler IH SCH (06:00)
[2019-04-15] MEDS ORDERED: CLONAZEPAM 0.5 MG PO SCH (06:00)
[2019-04-15] MEDS ORDERED: methylPREDNISolone Sodium Succinate 40 MG/1 ML SDV IVPUSH SCH ×3 (06:00→09:00)
[2019-04-15] MEDS ORDERED: Glycopyrrolate 15.6 MCG Cap.W.Dev Kit of 6 IH SCH (06:00)
[2019-04-15] MEDS ORDERED: ClonazePAM 0.5 MG Tab PO SCH (06:00)
[2019-04-15] MEDS ORDERED: RANITIDINE 300 MG PO SCH (08:00)
[2019-04-15] MEDS: Formoterol/Mometasone 200-5 MCG 8.8 GM Inhaler IH SCH ×2 (08:24→21:42)
[2019-04-15] MEDS: Glycopyrrolate 15.6 MCG Cap.W.Dev Kit of 6 IH SCH ×2 (08:24→21:41)
[2019-04-15] MEDS ORDERED: Non-Formulary Medication 1 Each (Budesonide/Formoterol 2 PUFF) INH SCH (09:00)
[2019-04-15] MEDS ORDERED: TIOTROPIUM INH SCH (09:00)
[2019-04-15] MEDS: Clopidogrel 75 MG Tab PO SCH (09:53)
[2019-04-15] MEDS: PARoxetine 20 MG Tab PO SCH ×2 (09:53→11:20)
[2019-04-15] MEDS: Cholecalciferol (Vitamin D3) 25 MCG Tab PO SCH ×2 (09:53→22:07)
[2019-04-15] MEDS: Tamsulosin 0.4 MG Cap.ER PO SCH ×2 (09:53→22:13)
[2019-04-15] MEDS: Furosemide 40 MG Tab PO SCH (09:53)
[2019-04-15] MEDS: Potassium Chloride 10 MEQ Tab.ER PO SCH ×2 (09:54→22:13)
[2019-04-15] MEDS: Apixaban 5 MG Tab PO SCH ×2 (09:54→22:14)
[2019-04-15] MEDS: HYDROmorphone 0.5 MG/0.5 ML Syringe IVPUSH PRN (11:29)
[2019-04-15] MEDS ORDERED: Azithromycin 250 MG Tab PO SCH (18:00)
[2019-04-15] MEDS ORDERED: Azithromycin 250 MG in Sodium Chloride 0.9% 250 ML IV SCH (18:00)
--- NOTE | 2019-04-15 18:22 | PCM.PN ---
- General Info Date of Service: 04/15/19 Subjective Update: Feeling better Tolerating diet Ambulating BM yesterday - Patient Data Vitals - Most Recent: Last Vital Signs Temp 97.9 F 04/15/19 09:00 Pulse 80 04/15/19 09:00 Resp 20 04/15/19 09:00 BP 113/57 L 04/15/19 09:00 Pulse Ox 91 L 04/15/19 17:42 Weight - Most Recent: 90.265 kg - Exam Quality Assessment: Supplemental Oxygen General: Alert, Oriented, Cooperative, No Acute Distress HEENT: Pupils Equal, Pupils Reactive, EOMI. No: Mucous Membr. Moist/[place] Neck: Supple, Trachea Midline, No JVD Lungs: Decreased Breath Sounds, Wheezing. No: Crackles, Rales, Rhonchi, Stridor Cardiovascular: Regular Rate, Regular Rhythm. No: Murmurs, Gallops, Rubs GI/Abdominal Exam: Normal Bowel Sounds, Soft, Non-Tender Back Exam: Normal Inspection. No: CVA Tenderness (L), CVA Tenderness (R) Peripheral Pulses: 2+: Radial (L), Radial (R), Dorsalis Pedis (L), Dorsalis Pedis (R) Sepsis Event Note - Evaluation Sepsis Screening Result: No Definite Risk - Focused Exam Vital Signs: Vital Signs Temp Pulse Resp BP Pulse Ox Pulse Ox Pulse Ox 04/15/19 17:42 91 L 04/15/19 14:36 90 L 04/15/19 09:00 97.9 F 80 20 113/57 L 98 04/15/19 08:25 93 L Date Exam was Performed: 04/19/19 Time Exam was Performed: 11:17 - Problem List & Annotations (1) Acute hypoxemic respiratory failure SNOMED Code(s): 371142936 Code(s): J96.01 - ACUTE RESPIRATORY FAILURE WITH HYPOXIA Status: Acute Priority: High (2) COPD exacerbation SNOMED Code(s): 644955387 Code(s): J44.1 - CHRONIC OBSTRUCTIVE PULMONARY DISEASE W (ACUTE) EXACERBATION Status: Acute (3) Obstructive sleep apnea SNOMED Code(s): 14029781 Code(s): G47.33 - OBSTRUCTIVE SLEEP APNEA (ADULT) (PEDIATRIC) Status: Acute (4) Hypertension SNOMED Code(s): 01903083 Code(s): I10 - ESSENTIAL (PRIMARY) HYPERTENSION Status: Acute (5) Atrial fibrillation with controlled ventricular response SNOMED Code(s): 828347628 Code(s): I48.91 - UNSPECIFIED ATRIAL FIBRILLATION Status: Acute (6) Diabetes mellitus SNOMED Code(s): 86333290 Code(s): E11.9 - TYPE 2 DIABETES MELLITUS WITHOUT COMPLICATIONS Status: Acute Priority: High (7) Coronary artery disease SNOMED Code(s): 28536657 Code(s): I25.10 - ATHSCL HEART DISEASE OF [place] CORONARY ARTERY W/O ANG PCTRS Status: Acute Qualifiers: Coronary Disease-Associated Artery/Lesion type: unspecified vessel or lesion type [place] vs. transplanted heart: [place] heart Associated angina: without angina Qualified Code(s): I25.10 - Atherosclerotic heart disease of [place] coronary artery without angina pectoris (8) Depression SNOMED Code(s): 45014627 Code(s): F32.9 - MAJOR DEPRESSIVE DISORDER, SINGLE EPISODE, UNSPECIFIED Status: Chronic (9) Anxiety SNOMED Code(s): 95901374 Code(s): F41.9 - ANXIETY DISORDER, UNSPECIFIED Status: Acute (10) PTSD (post-traumatic stress disorder) SNOMED Code(s): 56714743 Code(s): F43.10 - POST-TRAUMATIC STRESS DISORDER, UNSPECIFIED Status: Acute (11) GERD (gastroesophageal reflux disease) SNOMED Code(s): 930561553 Code(s): K21.9 - GASTRO-ESOPHAGEAL REFLUX DISEASE WITHOUT ESOPHAGITIS Status: Acute (12) PUD (peptic ulcer disease) SNOMED Code(s): 84806692 Code(s): K27.9 - PEPTIC ULC, SITE UNSP, UNSP AC OR CHR, W/O HEMOR OR PERF Status: Acute - Problem List Review Problem List Initiated/Reviewed/Updated: Yes - Plan Plan:: Acute hypoxemic respiratory failure COPD exacerbation Obstructive sleep apnea Hypoxemia improved, still on BiPAP NC 1.5L PLAN - Monitor oxygenation - Repeat ABGs as needed - Scheduled nebs - RT evaluation and treat - Continue O2 supplementation - Incentive spirometry - Pending Respiratory panel Hypertension BP controlled PLAN - Continue home medications - PRN hydralazine Atrial fibrillation with controlled ventricular response Rate controlled right now PLAN - Continue home medications Diabetes mellitus, unknown HbA1c No acute issues Glucose controlled PLAN - Sliding scale - Hypoglycemia protocol Coronary artery disease No acute issues No chest pain No troponin elevation PLAN - Continue home medications Depression/Anxiety/PTSD No acute SI or HI PLAN - Continue home meds GERD (gastroesophageal reflux disease) PUD (peptic ulcer disease) No acute issues PLAN - Continue home ranitidine PROPHYLAXIS DVT- home Eliquis GI- home ranitidine CODE STATUS: FULL CODE DISPOSITION: Will remain admitted for scheduled nebulizations and oxygenation monitorization , discharge in AM likely
[2019-04-15] MEDS ORDERED: Mirtazapine 30 MG Tab PO SCH (21:00)
[2019-04-15] MEDS ORDERED: ClonazePAM 1 MG Tab PO SCH (21:00)
[2019-04-15] MEDS ORDERED: Famotidine 20 MG Tab PO SCH (21:00)
[2019-04-15] MEDS ORDERED: Magnesium Oxide 400 MG Tab PO SCH (21:00)
[2019-04-15] MEDS ORDERED: Simvastatin 20 MG Tab PO SCH (21:00)
[2019-04-15] MEDS ORDERED: PARoxetine 20 MG Tab PO SCH (21:00)
[2019-04-15] MEDS: Verapamil 120 MG Cap.ER PO SCH (22:07)
[2019-04-15] MEDS: Oxymetazoline 0.05% Nasal Spray 30 ML Bottle NAS PRN (22:14)
[2019-04-16] MEDS: Albuterol 0.083% 2.5 MG/3 ML Neb Soln NEB SCH ×4 (02:25→13:55)
[2019-04-16] MEDS: IPRATROPIUM BROMIDE NASBOTH SCH ×2 (03:39→09:09)
[2019-04-16] MEDS: ClonazePAM 0.5 MG Tab PO SCH (06:29)
[2019-04-16] MEDS: Verapamil 120 MG Cap.ER PO SCH (08:53)
[2019-04-16] MEDS: Furosemide 40 MG Tab PO SCH (08:53)
[2019-04-16] MEDS: Clopidogrel 75 MG Tab PO SCH (08:55)
[2019-04-16] MEDS: Potassium Chloride 10 MEQ Tab.ER PO SCH (08:58)
[2019-04-16] MEDS: Cholecalciferol (Vitamin D3) 25 MCG Tab PO SCH (08:58)
[2019-04-16] MEDS: Apixaban 5 MG Tab PO SCH (08:58)
[2019-04-16] MEDS: Tamsulosin 0.4 MG Cap.ER PO SCH (08:59)
[2019-04-16] MEDS: Formoterol/Mometasone 200-5 MCG 8.8 GM Inhaler IH SCH (09:51)
[2019-04-16] MEDS: Glycopyrrolate 15.6 MCG Cap.W.Dev Kit of 6 IH SCH (09:52)
[2019-04-16] MEDS ORDERED: Codeine/guaiFENesin 100-10 MG/5 ML Syrup 5 ML Cup PO ONE (10:45)
[2019-04-16 12:32] VITALS: BP 95/67; PULSE 85
[2019-04-16] MEDS ORDERED: Acetylcysteine 20% 200 MG/ML 30 ML Nebulizer Soln SDV NEB ONE (14:05)
[2019-04-16] MEDS ORDERED: Acetylcysteine 20% 200 MG/ML 4 ML Nebulizer Soln SDV NEB ONE (14:30)
--- NOTE | 2019-04-16 14:36 | PCM.DCSUM1 ---
Discharge Summary - Hospital Course HPI Initial Comments: Came in with worsening shortness of breath and wheezing Found to be hypoxemic in ED - Discharge Data Discharge Date: 04/16/19 Discharge Disposition: Home, Self-Care 01 Condition: Good - Referral to Home Health Primary Care Physician: Ana Benjamin MD - Discharge Diagnosis/Problem(s) (1) Acute hypoxemic respiratory failure SNOMED Code(s): 768191948 ICD Code: J96.01 - ACUTE RESPIRATORY FAILURE WITH HYPOXIA Status: Acute Priority: High (2) COPD exacerbation SNOMED Code(s): 233641392 ICD Code: J44.1 - CHRONIC OBSTRUCTIVE PULMONARY DISEASE W (ACUTE) EXACERBATION Status: Acute (3) Obstructive sleep apnea SNOMED Code(s): 04266218 ICD Code: G47.33 - OBSTRUCTIVE SLEEP APNEA (ADULT) (PEDIATRIC) Status: Acute (4) Hypertension SNOMED Code(s): 21126770 ICD Code: I10 - ESSENTIAL (PRIMARY) HYPERTENSION Status: Acute (5) Atrial fibrillation with controlled ventricular response SNOMED Code(s): 215298072 ICD Code: I48.91 - UNSPECIFIED ATRIAL FIBRILLATION Status: Acute (6) Diabetes mellitus SNOMED Code(s): 21905965 ICD Code: E11.9 - TYPE 2 DIABETES MELLITUS WITHOUT COMPLICATIONS Status: Acute Priority: High (7) Coronary artery disease SNOMED Code(s): 93214832 ICD Code: I25.10 - ATHSCL HEART DISEASE OF [place] CORONARY ARTERY W/O ANG PCTRS Status: Acute Qualifiers: Coronary Disease-Associated Artery/Lesion type: unspecified vessel or lesion type [place] vs. transplanted heart: [place] heart Associated angina: without angina Qualified Code(s): I25.10 - Atherosclerotic heart disease of [place] coronary artery without angina pectoris (8) Depression SNOMED Code(s): 77242089 ICD Code: F32.9 - MAJOR DEPRESSIVE DISORDER, SINGLE EPISODE, UNSPECIFIED Status: Chronic (9) Anxiety SNOMED Code(s): 02252059 ICD Code: F41.9 - ANXIETY DISORDER, UNSPECIFIED Status: Acute (10) PTSD (post-traumatic stress disorder) SNOMED Code(s): 80666324 ICD Code: F43.10 - POST-TRAUMATIC STRESS DISORDER, UNSPECIFIED Status: Acute (11) GERD (gastroesophageal reflux disease) SNOMED Code(s): 197209117 ICD Code: K21.9 - GASTRO-ESOPHAGEAL REFLUX DISEASE WITHOUT ESOPHAGITIS Status: Acute (12) PUD (peptic ulcer disease) SNOMED Code(s): 82236358 ICD Code: K27.9 - PEPTIC ULC, SITE UNSP, UNSP AC OR CHR, W/O HEMOR OR PERF Status: Acute - Patient Summary/Data Consults: Consultations 04/14/19 21:16 Consult to Case Management/Block Machine Operator [CONS] Routine Consult to Donor Specialist [CONS] Routine Consult to Spiritual Care [CONS] Routine OT Evaluation and Treatment [CONS] Routine PT Evaluation and Treatment [CONS] Routine Respiratory Care Assess and Treatment [CONS] Routine Hospital Course: Admitted to medical floor under observation on scheduled breathing treatments and BiPAP Weaned off BiPAP to nasal cannula Respiratory panel obtaines and pending Patient voiced being back at baseline Physical exam with minimal improvement but patient stated that this is his baseline and he can continue neb treatments at home. "Every time I get admitted i feel worse here and start feeling better once I'm at home" Upon further discussion decision was made to discharge on scheduled breathing treatments. - Discharge Plan *PRESCRIPTION DRUG MONITORING PROGRAM REVIEWED*: No *COPY OF PRESCRIPTION DRUG MONITORING REPORT IN PATIENT DANITZA: No Home Medications: Home Meds Clopidogrel [Plavix] 75 mg PO DAILY 04/12/14 [History] Furosemide [Lasix] 40 mg PO DAILY 04/12/14 [History] PARoxetine HCl [Paxil] 20 mg PO DAILY 04/12/14 [History] Potassium Chloride 10 meq PO BID 04/12/14 [History] Tamsulosin HCl [Flomax] 0.4 mg PO BID 04/12/14 [History] Tiotropium [Spiriva HandiHaler] 1 cap INH DAILY 04/12/14 [History] Simvastatin [Zocor] 20 mg PO BEDTIME 02/03/15 [History] Apixaban [Eliquis] 5 mg PO BID 01/23/16 [History] Verapamil [Calan SR] 120 mg PO BID 01/23/16 [History] Albuterol Sulfate [Proair Respiclick] 2 puff INH Q4H PRN 10/18/16 [History] ClonazePAM [KlonoPIN] 1 mg PO BEDTIME 10/18/16 [History] Ipratropium [place] 1 spray NASBOTH BID 10/18/16 [History] Ranitidine [Zantac] 300 mg PO QAM 10/18/16 [History] Cholecalciferol (Vitamin D3) [Vitamin D] 1,000 unit PO BID 04/13/17 [History] Mirtazapine 30 mg PO BEDTIME 04/13/17 [History] Magnesium Oxide 420 mg PO BEDTIME 02/19/18 [History] ClonazePAM [KlonoPIN] 0.5 mg PO ACBREAKFAST 02/06/19 [History] Albuterol/Ipratropium [DuoNeb 3.0-0.5 MG/3 ML] 3 ml NEB Q6HR 04/18/19 [History] Budesonide/Formoterol [Symbicort 160-4.5 MCG] 2 puff INH DAILY 04/18/19 [History ] guaiFENesin [Guaifenesin] 400 mg PO DAILY 04/18/19 [History] Forms: ED Department Discharge Referrals: Ana Benjamin MD [Primary Care Provider] - (please call and schedule a hospital follow up appointment with Dr. Benjamin within 7-10 days) - Discharge Summary/Plan Comment DC Time >30 min.: Yes - General Info Date of Service: 04/16/19 Subjective Update: Feeling better Slept fine No O2 supplementation since 3PM yesterday - Patient Data Vitals - Most Recent: Last Vital Signs Temp 97.7 F 04/16/19 12:30 Pulse 85 04/16/19 12:30 Resp 18 04/16/19 12:30 BP 95/67 04/16/19 12:30 Pulse Ox 90 L 04/16/19 13:57 Weight - Most Recent: 90.265 kg - Exam General: Reports: Alert, Oriented, Cooperative, Mild Distress HEENT: Reports: Pupils Equal, Pupils Reactive, EOMI, Mucous Membr. Moist/[place] Neck: Reports: Supple, Trachea Midline Lungs: Reports: Decreased Breath Sounds, Crackles, Wheezing Cardiovascular: Reports: Regular Rate, Regular Rhythm. Denies: Murmurs, Gallops , Rubs GI/Abdominal Exam: Normal Bowel Sounds, Soft, Non-Tender Back Exam: Reports: Normal Inspection Extremities: Normal Inspection, Normal Range of Motion, Non-Tender, No Pedal Edema, Slow Capillary Refill
== END 2019-04-16 13:44 | disposition home or self-care (01) ==
LOC: JD.ED 15:09 → JD.MS 18:52
PROVIDERS: ADMIT Internal Medicine; ATTEND Internal Medicine
DX: J96.01 Acute respiratory failure with hypoxia (principal); J44.1 Chronic obstructive pulmonary disease with (acute) exacerbation; G47.33 Obstructive sleep apnea (adult) (pediatric); J98.11 Atelectasis; I48.91 Unspecified atrial fibrillation; E11.9 Type 2 diabetes mellitus without complications; I25.10 Atherosclerotic heart disease of native coronary artery without angina pectoris; F32.9 Major depressive disorder, single episode, unspecified; F41.9 Anxiety disorder, unspecified; F43.11 Post-traumatic stress disorder, acute; K27.3 Acute peptic ulcer, site unspecified, without hemorrhage or perforation; E53.8 Deficiency of other specified B group vitamins; I10 Essential (primary) hypertension; I25.2 Old myocardial infarction; E78.00 Pure hypercholesterolemia, unspecified; K21.9 Gastro-esophageal reflux disease without esophagitis; H54.7 Unspecified visual loss; E66.9 Obesity, unspecified; Z68.32 Body mass index [BMI] 32.0-32.9, adult; Z87.891 Personal history of nicotine dependence; Z88.6 Allergy status to analgesic agent; Z91.018 Allergy to other foods; Z88.5 Allergy status to narcotic agent; Z88.8 Allergy status to other drugs, medicaments and biological substances; Z79.01 Long term (current) use of anticoagulants; Z79.899 Other long term (current) drug therapy; Z95.5 Presence of coronary angioplasty implant and graft
CPT/HCPCS: 36415; 71046; 80048; 80053; 81001; 83735; 83880; 84484; 85025; 86140; 87070; 87205; 87486; 87581; 87632; 87798; 87804; 93005; 94640; 94760; 94761; 97161; 97165; 97535; A9270; J0456; J1170; J2920; J2930; J7050; 93010; 96365; 96375; 96376; 99285; 99285-25; G0378; J7620-GY

== ENCOUNTER 2019-04-18 05:46 | Inpatient (IN) | payer OTHER, MEDICARE ==
[2019-04-18] MEDS ORDERED: predniSONE 20 MG Tab PO STA (06:17)
--- NOTE | 2019-04-18 06:32 | EDM.PDOC ---
ED HPI GENERAL MEDICAL PROBLEM - General Chief Complaint: Respiratory Problem Stated Complaint: [facility] Time Seen by Provider: 04/18/19 06:01 Source of Information: Reports: Patient History Limitations: Reports: No Limitations - History of Present Illness INITIAL COMMENTS - FREE TEXT/NARRATIVE: Mr. Barclay is a pleasant 68-year-old man with a past medical history significant for COPD on nightly oxygen, obstructive sleep apnea on nightly AutoPap, CHF, CAD status post 5 MIs, and paroxysmal atrial fibrillation, who, medical records indicate, was admitted to this hospital from , 04/14/2019 through 04/16/2019 for a COPD exacerbation and respiratory failure. He states that he felt great on 04/15/2019, and Thursday during the day, however, he states that he was given N-acetylcysteine (Mucomyst) nebs prior to being discharged home, and by the time he was discharged home, he says his breathing was difficult again. He states that he had a bad weekend, and probably should have come in yesterday. He states that he has had a cough productive of clear sputum, and that he has been wheezing. He denies having a fever. He states that he has been taking albuterol by nebulizer every hour since yesterday, and albuterol by MDI with a spacer chamber every 15 minutes, in addition to the albuterol by neb. He has also been taking his usual Spiriva and Symbicort as prescribed. He has continued with his nightly oxygen and AutoPap. The patient arrived by EMS, and the patient tells me that the paramedics did not give him any neb treatments. His most recent albuterol was around 05:30 this morning. Upon arrival, the patient is tachycardic, tachypneic, with an oxygen saturation of 79% on room air, 98% on nonrebreather. I switched him to a nasal cannula at 6 L, and will taper him down as he tolerates. The patient's PCP is at the OR. - Related Data Allergies Allergy/AdvReac Type Severity Reaction Status Date / Time acetaminophen [From Tylenol] Allergy Airway Verified 04/18/19 05:54 Tightness aspirin Allergy Airway Verified 04/18/19 05:54 Tightness horseradish Allergy Airway Verified 04/18/19 05:54 Tightness ibuprofen Allergy Airway Verified 04/18/19 05:54 Tightness meperidine HCl [From Demerol] Allergy Airway Verified 04/18/19 05:54 Tightness morphine Allergy Itching Verified 04/18/19 05:54 oxycodone Allergy Rash Verified 04/18/19 05:54 sumatriptan [From Imitrex] Allergy Cannot Verified 04/18/19 05:54 Remember sumatriptan succinate Allergy Cannot Verified 04/18/19 05:54 [From Imitrex] Remember haloperidol [From Haldol] AdvReac Change Verified 04/18/19 05:54 Mental Status haloperidol lactate AdvReac Change Verified 04/18/19 05:54 [From Haldol] Mental Status ketorolac tromethamine AdvReac Change Verified 04/18/19 05:54 [From Toradol] Mental Status antihistamines Allergy Airway Uncoded 04/14/19 20:41 Tightness Home Meds: Home Meds Clopidogrel [Plavix] 75 mg PO DAILY 04/12/14 [History] Furosemide [Lasix] 40 mg PO DAILY 04/12/14 [History] PARoxetine HCl [Paxil] 20 mg PO DAILY 04/12/14 [History] Potassium Chloride 10 meq PO BID 04/12/14 [History] Tamsulosin HCl [Flomax] 0.4 mg PO BID 04/12/14 [History] Tiotropium [Spiriva HandiHaler] 1 cap INH DAILY 04/12/14 [History] Simvastatin [Zocor] 20 mg PO BEDTIME 02/03/15 [History] Apixaban [Eliquis] 5 mg PO BID 01/23/16 [History] Budesonide/Formoterol [Symbicort 160-4.5 MCG] 2 puff INH BID 01/23/16 [History] Verapamil [Calan SR] 120 mg PO BID 01/23/16 [History] Albuterol Sulfate [Proair Respiclick] 2 puff INH Q4H PRN 10/18/16 [History] ClonazePAM [KlonoPIN] 1 mg PO BEDTIME 10/18/16 [History] Ipratropium [place] 1 spray NASBOTH BID 10/18/16 [History] Ranitidine [Zantac] 300 mg PO QAM 10/18/16 [History] Cholecalciferol (Vitamin D3) [Vitamin D] 1,000 unit PO BID 04/13/17 [History] Mirtazapine 30 mg PO BEDTIME 04/13/17 [History] Magnesium Oxide 420 mg PO BEDTIME 02/19/18 [History] ClonazePAM [KlonoPIN] 0.5 mg PO ACBREAKFAST 02/06/19 [History] Albuterol/Ipratropium [DuoNeb 3.0-0.5 MG/3 ML] 3 ml NEB Q8HR #9 neb 04/16/19 [Rx ] Azithromycin 500 mg PO DAILY #3 tablet 04/16/19 [Rx] Benzonatate [Tessalon Perle] 200 mg PO Q8HR #12 capsule 04/16/19 [Rx] Budesonide 1 mg IH Q12HR #6 ml 04/16/19 [Rx] guaiFENesin/Codeine Phosphate [Guaiatussin AC Liquid] 10 ml PO Q8HR #120 ml 02/23 [Rx] methylPREDNISolone [Medrol] 4 mg PO DAILY #1 tablet 04/16/19 [Rx] methylPREDNISolone [Medrol] 8 mg PO DAILY #2 tablet 04/16/19 [Rx] methylPREDNISolone [Medrol] 12 mg PO DAILY #3 tablet 04/16/19 [Rx] methylPREDNISolone [Medrol] 16 mg PO DAILY #4 tablet 04/16/19 [Rx] methylPREDNISolone [Medrol] 20 mg PO DAILY #5 tablet 04/16/19 [Rx] Past Medical History HEENT History: Reports: Impaired Vision Other HEENT History: wears eyeglasses and upper/lower dentures Cardiovascular History: Reports: Afib (paroxysmal), CAD, High Cholesterol, Hypertension, DC (x 5), Other (See Below) (Dextrocardia) Respiratory History: Reports: COPD (nighly O2 2.5 L), Sleep Apnea (nightly AutoPAP) Gastrointestinal History: Reports: GERD, PUD Genitourinary History: Reports: Acute Renal Failure, BPH Psychiatric History: Reports: Anxiety, Depression, PTSD Endocrine/Metabolic History: Reports: Obesity/BMI 30+, Other (See Below) ( Prediabetes) Hematologic History: Reports: B12 Deficiency - Infectious Disease History Infectious Disease History: Reports: Chicken Pox, Measles, Mumps - Past Surgical History HEENT Surgical History: Reports: Cataract Surgery (bilateral), Naso-Sinus Surgery (nose, x 3) Cardiovascular Surgical History: Reports: Coronary Artery Stent (x 4, 1999) GI Surgical History: Reports: Appendectomy, Colonoscopy, EGD Musculoskeletal Surgical History: Reports: Hip Replacement (bilateral) Oncologic Surgical History: Reports: Other (See Below) (Prostate biopsy. Right orchiectomy.) Social & Family History - Family History Family Medical History: Noncontributory Oncologic: Reports: Leukemia Other Oncologic Family History: Brother - Tobacco Use Smoking Status *Q: Former Smoker Years of Tobacco use: 52 Packs/Tins Daily: 0.5 Month/Year Tobacco Last Used: Quit 2019 - Caffeine Use Caffeine Use: Reports: Soda Other Caffeine Use: 2/day - Alcohol Use Alcohol Use History: No - Recreational Drug Use Recreational Drug Use: No - Living Situation & Occupation Living situation: Reports: , with Spouse Occupation: Retired ED ROS GENERAL - Review of Systems Review Of Systems: Comprehensive ROS is negative, except as noted in HPI. Neurological: Reports: Headache (chronic) ED EXAM, GENERAL - Physical Exam Exam: See Below Exam Limited By: No Limitations General Appearance: Alert, WD/WN, Mild Distress (Looks to be dyspneic, is tripoding, although he is able to speak in full sentences) Eye Exam: Bilateral Eye: EOMI, Normal Inspection Ears: Normal External Exam, Hearing Grossly Normal Nose: Normal Inspection Throat/Mouth: Normal Inspection, Normal Lips, Normal Voice, No Airway Compromise Head: Atraumatic, Normocephalic Neck: Normal Inspection, Full Range of Motion Respiratory/Chest: No Accessory Muscle Use, Decreased Breath Sounds, Wheezing ( expiratory throughout), Prolonged Expiration. No: Crackles, Rhonchi, Stridor Cardiovascular: Normal Peripheral Pulses, No Gallop, No JVD, No Murmur, No Rub, Tachycardia, Irregularly Irregular Peripheral Pulses: 4+: Radial (L), Radial (R) GI/Abdominal: Normal Bowel Sounds, Soft, Non-Tender, No Organomegaly, No Distention, No Abnormal Bruit, No Mass (Male) Exam: Deferred Rectal (Males) Exam: Deferred Back Exam: Normal Inspection, Full Range of Motion, NT Extremities: Normal Inspection, Normal Range of Motion, No Pedal Edema, Normal Capillary Refill Neurological: Alert, Oriented, Normal Cognition, No Motor/Sensory Deficits Psychiatric: Normal Affect Skin Exam: Warm, Dry, Intact, Normal Color, No Rash EKG INTERPRETATION EKG Date: 04/18/19 Time: 06:41 Rhythm: A-Fib Rate (Beats/Min): 117 [place]: Normal P-Wave: Absent QRS: Normal ST-T: Normal QT: Normal Comparison: No Change (02/26/2019) Course - Vital Signs Last Recorded V/S: Last Vital Signs Temp 37.2 C 04/18/19 05:47 Pulse 120 H 04/18/19 05:47 Resp 25 H 04/18/19 05:47 BP 133/95 H 04/18/19 05:47 Pulse Ox 91 L 04/18/19 07:20 - Orders/Labs/Meds Orders: Active Orders 24 hr Category Date Time Status EKG Documentation Completion [RC] ASDIRECTED Care 04/18/19 06:01 Active RT Post Treatment Assessment [RC] Click to Edit Care 04/18/19 07:00 Active RT Pre-Treatment Assessment [RC] Click to Edit Care 04/18/19 07:00 Active CULTURE BLOOD [BC] Stat Lab 04/18/19 06:20 Received CULTURE BLOOD [BC] Stat Lab 04/18/19 06:26 Received RESPIRATORY PANEL PCR [MREF] Stat Lab 04/18/19 08:55 Ordered Diltiazem 125 mg Med 04/18/19 08:15 Active Sodium Chloride 0.9% [Normal Saline] 100 ml IV TITRATE Blood Culture x2 Reflex Set [OM.PC] Stat Oth 04/18/19 06:04 Ordered EKG 12 Lead [EK] Stat Ther 04/18/19 06:00 Ordered Medication Orders Diltiazem HCl 125 mg/ Sodium (Chloride) 125 mls @ 10 mls/hr IV TITRATE SANTOS; Protocol Labs: Laboratory Tests 04/18/19 04/18/19 04/18/19 Range/Units 05:55 05:55 05:55 WBC 9.53 H (4.23-9.07) K/mm3 RBC 4.55 L (4.63-6.08) M/mm3 Hgb 14.6 (13.7-17.5) gm/dl Hct 46.0 (40.1-51.0) % MCV 101.1 H (79.0-92.2) fl MCH 32.1 (25.7-32.2) pg MCHC 31.7 L (32.2-35.5) g/dl RDW Std Deviation 58.2 H (35.1-43.9) fL Plt Count 196 (163-337) K/mm3 MPV 9.1 L (9.4-12.3) fl Neutrophils % (Manual) 88 H (40-60) % Band Neutrophils % 0 (0-10) % Lymphocytes % (Manual) 8 L (20-40) % Atypical Lymphs % 0 % Monocytes % (Manual) 4 (2-10) % Eosinophils % (Manual) 0 L (0.8-7.0) % Basophils % (Manual) 0 L (0.2-1.2) Platelet Estimate Adequate Macrocytosis 2+ moderate RBC Morph Comment Not Reportable D-Dimer, Quantitative 0.41 (0.19-0.50) mg/L Puncture Site ABG pH (7.35-7.45) ABG pCO2 (35.0-45.0) mmHg ABG pO2 (80.0-100.0) mmHg ABG HCO3 (22.0-26.0) meq/L ABG O2 Saturation (96.0-97.0) % ABG Base Excess (-2-2.0) Oskar Test A-a Gradient mmHg O2 Delivery Device Oxygen Flow Rate FiO2 (21.00-100.00) % Sodium 139 (136-145) mEq/L Potassium 4.4 (3.5-5.1) mEq/L Chloride 102 (98-107) mEq/L Carbon Dioxide 31 (21-32) mEq/L Anion Gap 10.4 (5-15) BUN 29 H (7-18) mg/dL Creatinine 1.4 H (0.7-1.3) mg/dL Est Cr Clr Drug Dosing 42.71 mL/min Estimated GFR (MDRD) 50 (>60) mL/min BUN/Creatinine Ratio 20.7 H (14-18) Glucose 111 (80-115) mg/dL Lactic Acid (0.4-2.0) mmol/L Calcium 8.8 (8.5-10.1) mg/dL Total Bilirubin 0.5 (0.2-1.0) mg/dL AST 60 H (15-37) U/L ALT 75 H (16-63) U/L Alkaline Phosphatase 146 H (46-116) U/L Troponin I < 0.017 (0.00-0.056) ng/mL NT-Pro-B Natriuret Pep (0-125) pg/mL Total Protein 7.2 (6.4-8.2) g/dl Albumin 3.3 L (3.4-5.0) g/dl Globulin 3.9 gm/dL Albumin/Globulin Ratio 0.9 L (1-2) 04/18/19 04/18/19 04/18/19 Range/Units 05:55 06:25 06:25 WBC (4.23-9.07) K/mm3 RBC (4.63-6.08) M/mm3 Hgb (13.7-17.5) gm/dl Hct (40.1-51.0) % MCV (79.0-92.2) fl MCH (25.7-32.2) pg MCHC (32.2-35.5) g/dl RDW Std Deviation (35.1-43.9) fL Plt Count (163-337) K/mm3 MPV (9.4-12.3) fl Neutrophils % (Manual) (40-60) % Band Neutrophils % (0-10) % Lymphocytes % (Manual) (20-40) % Atypical Lymphs % % Monocytes % (Manual) (2-10) % Eosinophils % (Manual) (0.8-7.0) % Basophils % (Manual) (0.2-1.2) Platelet Estimate Macrocytosis RBC Morph Comment D-Dimer, Quantitative (0.19-0.50) mg/L Puncture Site Rt radial ABG pH 7.37 (7.35-7.45) ABG pCO2 53.3 H (35.0-45.0) mmHg ABG pO2 74.0 L (80.0-100.0) mmHg ABG HCO3 30 H (22.0-26.0) meq/L ABG O2 Saturation 91.8 L (96.0-97.0) % ABG Base Excess 3.8 H (-2-2.0) Oskar Test Positive A-a Gradient 117 mmHg O2 Delivery Device Cannula Oxygen Flow Rate 4.0 FiO2 36.00 (21.00-100.00) % Sodium (136-145) mEq/L Potassium (3.5-5.1) mEq/L Chloride (98-107) mEq/L Carbon Dioxide (21-32) mEq/L Anion Gap (5-15) BUN (7-18) mg/dL Creatinine (0.7-1.3) mg/dL Est Cr Clr Drug Dosing mL/min Estimated GFR (MDRD) (>60) mL/min BUN/Creatinine Ratio (14-18) Glucose (80-115) mg/dL Lactic Acid 1.5 (0.4-2.0) mmol/L Calcium (8.5-10.1) mg/dL Total Bilirubin (0.2-1.0) mg/dL AST (15-37) U/L ALT (16-63) U/L Alkaline Phosphatase (46-116) U/L Troponin I (0.00-0.056) ng/mL NT-Pro-B Natriuret Pep 1534 H (0-125) pg/mL Total Protein (6.4-8.2) g/dl Albumin (3.4-5.0) g/dl Globulin gm/dL Albumin/Globulin Ratio (1-2) Meds: Medications Generic Name Dose Route Start Last Admin Trade Name Freq PRN Reason Stop Dose Admin Diltiazem HCl 125 mg/ Sodium 125 mls @ 10 mls/hr 04/18/19 08:15 Chloride IV TITRATE SANTOS Protocol 10 MG/HR Discontinued Medications Generic Name Dose Route Start Last Admin Trade Name Freq PRN Reason Stop Dose Admin Diltiazem HCl 5 mg 04/18/19 08:02 Cardizem IVPUSH 04/18/19 08:03 ONETIME STA Ipratropium [place] 0.5 mg 04/18/19 07:00 04/18/19 07:16 Atrovent NEB 04/18/19 07:01 0.5 mg ONETIME ONE Administration Prednisone 60 mg 04/18/19 06:17 04/18/19 06:43 Prednisone PO 04/18/19 06:18 60 mg ONETIME STA Administration - Re-Assessments/Exams Free Text/Narrative Re-Assessment/Exam: 04/18/19 06:19 The patient appears to be suffering from a COPD exacerbation, despite taking an abundance of albuterol by both nebulizer and MDI with spacer chamber at home. It is likely the excess of albuterol and his lead him to have significant tachycardia. Since the albuterol did not seem to be helping much, I'm not going to give him any additional albuterol at this time, but I will order a single dose of ipratropium. I will also start the patient on oral prednisone, 60 mg, and taper his oxygen to keep him in the low 90s. Once his heart rate has settled down, we can consider treatment with albuterol. In the meantime, I have ordered a workup that includes blood work, 2 sets of blood cultures, an ABG, chest x-ray, and an ECG. Portable chest radiograph reviewed. There is cardiomegaly, with the majority of the heart lying on the right side, consistent with dextrocardia. No pulmonary vascular congestion or pleural effusions to suggest decompensated CHF. No focal infiltrate. No pneumothorax. There is hyperinflation and modest bilateral diaphragmatic flattening, consistent with COPD. Formal read per the Radiologist pending. 04/18/19 06:55 The patient's ECG demonstrates atrial fibrillation with RVR. His ABG demonstrates a chronic/compensated respiratory acidosis with adequate oxygenation while on 4 L per nasal cannula. 04/18/19 07:59 The patient's CBC is remarkable for a WBC count slightly elevated at 9.53, but with 0% bandemia and 80% neutrophilia. The remainder of his CBC is unremarkable. His CMP is remarkable for a BUN/Cr elevated at 29/1.4. His AST/ALT are mildly elevated at 60/75, and his alkaline phosphatase is mildly elevated at 146. The remainder of his CMP is unremarkable. His troponin is undetectably low. His lactic acid level is within normal limits at 1.5. His D-dimer is within normal limits at 0.41. His BNP is modestly elevated at 1534. The patient's BUN/Cr was 25/1.2 on 04/16/2019. 04/18/19 08:06 On reexamination, the patient states that his breathing feels somewhat better. On auscultation, he still has diminished breath sounds throughout and prolonged exhalation however, he has much less wheezing, and he does not appear to be anywhere near as dyspneic as he did when he first arrived. I was hoping that the patient's heart rate would drop under 100 with the absence of albuterol, however, his heart rate has persisted in the 100-teens, therefore I have ordered diltiazem 5 mg IVP, to be followed by a diltiazem drip at 10 mg/h. The patient will require admission to the hospital. 04/18/19 08:56 Before the patient could be given the diltiazem IVP, his heart rate slowed to below 100, therefore the nurse held it, however it has since risen again to the [id number], therefore I will instruct his nurse to start the Cardizem. In the meantime, the patient's case has been discussed with Dr. Davalos here in the ED. She accepted the patient for admission to the ICU. Departure - Departure Time of Disposition: 08:58 Disposition: Home, Self-Care 01 Condition: Good Clinical Impression: COPD exacerbation, Atrial fibrillation with RVR - Discharge Information *PRESCRIPTION DRUG MONITORING PROGRAM REVIEWED*: Not Applicable *COPY OF PRESCRIPTION DRUG MONITORING REPORT IN PATIENT DANITZA: Not Applicable Referrals: Ana Benjamin MD [Primary Care Provider] - Forms: ED Department Discharge Sepsis Event Note - Evaluation Sepsis Screening Result: Possible Sepsis Risk - Focused Exam Vital Signs: Vital Signs Temp Pulse Resp BP Pulse Ox Pulse Ox 04/18/19 07:20 91 L 04/18/19 05:47 37.2 C 120 H 25 H 133/95 H 79 L Date Exam was Performed: 04/18/19 Time Exam was Performed: 09:00 - My Orders Last 24 Hours: My Active Orders 04/18/19 06:00 EKG 12 Lead [EK] Stat 04/18/19 06:01 EKG Documentation Completion [RC] ASDIRECTED 04/18/19 06:04 Blood Culture x2 Reflex Set [OM.PC] Stat 04/18/19 06:20 CULTURE BLOOD [BC] Stat 04/18/19 06:26 CULTURE BLOOD [BC] Stat 04/18/19 07:00 RT Post Treatment Assessment [RC] Click to Edit RT Pre-Treatment Assessment [RC] Click to Edit 04/18/19 08:15 Diltiazem 125 mg Sodium Chloride 0.9% [Normal Saline] 100 ml IV TITRATE 04/18/19 08:55 RESPIRATORY PANEL PCR [MREF] Stat - Assessment/Plan Last 24 Hours: My Active Orders 04/18/19 06:00 EKG 12 Lead [EK] Stat 04/18/19 06:01 EKG Documentation Completion [RC] ASDIRECTED 04/18/19 06:04 Blood Culture x2 Reflex Set [OM.PC] Stat 04/18/19 06:20 CULTURE BLOOD [BC] Stat 04/18/19 06:26 CULTURE BLOOD [BC] Stat 04/18/19 07:00 RT Post Treatment Assessment [RC] Click to Edit RT Pre-Treatment Assessment [RC] Click to Edit 04/18/19 08:15 Diltiazem 125 mg Sodium Chloride 0.9% [Normal Saline] 100 ml IV TITRATE 04/18/19 08:55 RESPIRATORY PANEL PCR [MREF] Stat
[2019-04-18] MEDS ORDERED: Ipratropium 0.02% 0.5 MG/2.5 ML Neb Soln NEB ONE (07:00)
--- NOTE | 2019-04-18 07:32 | CR ---
Chest: Portable view of the chest was obtained. Comparison: Prior chest x-ray of 04/24/19. Heart is enlarged with right sided cardiac apex and left-sided aortic arch which is stable. Lung markings are mildly increased which appear chronic. No acute parenchymal change is appreciated. Bony structures are grossly intact. Impression: 1. Findings as noted above. 2. Nothing acute is appreciated on portable chest x-ray. Diagnostic code #2 This report was dictated in [place] Standard Time
[2019-04-18] MEDS ORDERED: Diltiazem 50 MG/10 ML SDV IVPUSH STA (08:02)
[2019-04-18] MEDS ORDERED: Diltiazem 125 MG in Sodium Chloride 0.9% 100 ML IV SCH (08:15)
[2019-04-18] MEDS ORDERED: Ondansetron 4 MG Tab.DIS PO PRN (13:21)
[2019-04-18] MEDS ORDERED: Acetaminophen 325 MG Tab PO PRN (13:21)
[2019-04-18] MEDS ORDERED: Ondansetron 4 MG/2 ML SDV IV PRN (13:21)
--- NOTE | 2019-04-18 13:29 | PCM.HP.2 ---
H&P History of Present Illness - General Date of Service: 04/18/19 Admit Problem/Dx: Admission Diagnosis/Problem Admission Diagnosis/Problem COPD, Severe chronic obstructive pulmonary disease - History of Present Illness Initial Comments - Free Text/Narative: 68-year-old man with a past medical history significant for COPD on nightly oxygen, obstructive sleep apnea on nightly AutoPap, CHF, CAD status post 5 MIs, and paroxysmal atrial fibrillation who comes to the ED via EMS complaining of acutely worsening shortness of breath. Upon arrival, the patient is tachycardic , tachypneic, with an oxygen saturation of 79% on room air. Of note he was admitted to this hospital from , 04/14/2019 through 04/16/2019 for a COPD exacerbation and respiratory failure. He states that he felt great on 04/15/2019, and Thursday during the day, however, he states that he was given N-acetylcysteine (Mucomyst) nebs prior to being discharged home, and by the time he was discharged home, he says his breathing was difficult again. He states that he had a bad weekend, and probably should have come in yesterday. He states that he has had a cough productive of clear sputum, and that he has been wheezing. He denies having a fever. He states that he has been taking albuterol by nebulizer every hour since yesterday, and albuterol by MDI with a spacer chamber every 15 minutes, in addition to the albuterol by neb. He has also been taking his usual Spiriva and Symbicort as prescribed. He has continued with his nightly oxygen and AutoPap. - Related Data Allergies/Adverse Reactions: Allergies Allergy/AdvReac Type Severity Reaction Status Date / Time acetaminophen [From Tylenol] Allergy Airway Verified 04/18/19 11:42 Tightness aspirin Allergy Airway Verified 04/18/19 11:42 Tightness horseradish Allergy Airway Verified 04/18/19 11:42 Tightness ibuprofen Allergy Airway Verified 04/18/19 11:42 Tightness meperidine HCl [From Demerol] Allergy Airway Verified 04/18/19 11:42 Tightness morphine Allergy Itching Verified 04/18/19 11:42 oxycodone Allergy Rash Verified 04/18/19 11:42 sumatriptan [From Imitrex] Allergy Cannot Verified 04/18/19 11:42 Remember sumatriptan succinate Allergy Cannot Verified 04/18/19 11:42 [From Imitrex] Remember haloperidol [From Haldol] AdvReac Change Verified 04/18/19 11:42 Mental Status haloperidol lactate AdvReac Change Verified 04/18/19 11:42 [From Haldol] Mental Status ketorolac tromethamine AdvReac Change Verified 04/18/19 11:42 [From Toradol] Mental Status antihistamines Allergy Airway Uncoded 04/18/19 11:42 Tightness Home Medications: Home Meds Clopidogrel [Plavix] 75 mg PO DAILY 04/12/14 [History] Furosemide [Lasix] 40 mg PO DAILY 04/12/14 [History] PARoxetine HCl [Paxil] 20 mg PO DAILY 04/12/14 [History] Potassium Chloride 10 meq PO BID 04/12/14 [History] Tamsulosin HCl [Flomax] 0.4 mg PO BID 04/12/14 [History] Tiotropium [Spiriva HandiHaler] 1 cap INH DAILY 04/12/14 [History] Simvastatin [Zocor] 20 mg PO BEDTIME 02/03/15 [History] Apixaban [Eliquis] 5 mg PO BID 01/23/16 [History] Verapamil [Calan SR] 120 mg PO BID 01/23/16 [History] Albuterol Sulfate [Proair Respiclick] 2 puff INH Q4H PRN 10/18/16 [History] ClonazePAM [KlonoPIN] 1 mg PO BEDTIME 10/18/16 [History] Ipratropium Gravel Switch 1 spray NASBOTH BID 10/18/16 [History] Ranitidine [Zantac] 300 mg PO QAM 10/18/16 [History] Cholecalciferol (Vitamin D3) [Vitamin D] 1,000 unit PO BID 04/13/17 [History] Mirtazapine 30 mg PO BEDTIME 04/13/17 [History] Magnesium Oxide 420 mg PO BEDTIME 02/19/18 [History] ClonazePAM [KlonoPIN] 0.5 mg PO ACBREAKFAST 02/06/19 [History] Albuterol/Ipratropium [DuoNeb 3.0-0.5 MG/3 ML] 3 ml NEB Q6HR 04/18/19 [History] Budesonide/Formoterol [Symbicort 160-4.5 MCG] 2 puff INH DAILY 04/18/19 [History ] guaiFENesin [Guaifenesin] 400 mg PO DAILY 04/18/19 [History] Past Medical History HEENT History: Reports: Impaired Vision Other HEENT History: wears eyeglasses and upper/lower dentures Cardiovascular History: Reports: Afib, CAD, High Cholesterol, Hypertension, MT, Other (See Below) Other Cardiovascular History: stents in 1999, 5 MT Respiratory History: Reports: COPD, Sleep Apnea Gastrointestinal History: Reports: GERD, PUD Genitourinary History: Reports: Acute Renal Failure, BPH Musculoskeletal History: Reports: None Neurological History: Reports: Headaches, Chronic Other Neuro History: patient reports minimal CARDENAS, will continue to monitor. Psychiatric History: Reports: Anxiety, Depression, PTSD Endocrine/Metabolic History: Reports: Obesity/BMI 30+, Other (See Below) Other Endocrine/Metabolic History: boardline diabetic- checks AM BS daily Hematologic History: Reports: B12 Deficiency - Infectious Disease History Infectious Disease History: Reports: Chicken Pox, Measles, Mumps - Past Surgical History Head Surgeries/Procedures: Reports: None HEENT Surgical History: Reports: Cataract Surgery, Naso-Sinus Surgery Cardiovascular Surgical History: Reports: Coronary Artery Stent GI Surgical History: Reports: Appendectomy, Colonoscopy, EGD Neurological Surgical History: Reports: None Musculoskeletal Surgical History: Reports: Hip Replacement Social & Family History - Family History Family Medical History: Noncontributory Oncologic: Reports: Leukemia Other Oncologic Family History: Brother - Tobacco Use Smoking Status *Q: Former Smoker Years of Tobacco use: 52 Packs/Tins Daily: 0.5 Used Tobacco, but Quit: Yes Month/Year Tobacco Last Used: 04/2012 - Caffeine Use Caffeine Use: Reports: Soda Other Caffeine Use: 2/day - Recreational Drug Use Recreational Drug Use: No - Living Situation & Occupation Living situation: Reports: , with Spouse Occupation: Retired H&P Review of Systems - Review of Systems: Review Of Systems: See Below General: Reports: Fever, Chills, Malaise, Weakness, Fatigue, Diaphoresis, Decreased Appetite. Denies: Weight Loss, Weight Gain HEENT: Denies: Post Nasal Drip, Sinus Congestion, Sore Throat, Vertigo, Visual Changes Pulmonary: Reports: Shortness of Breath, Wheezing, Cough, Sputum. Denies: Pleuritic Chest Pain, Hemoptysis Cardiovascular: Reports: Dyspnea on Exertion, Orthopnea. Denies: Chest Pain, Palpitations, PND, Edema, Lightheadedness, Syncope, Claudication, Blood Pressure Problem Gastrointestinal: Denies: Abdominal Pain, Anorexia, Black Stool, Bloody Stool, Constipation, Diarrhea, Decreased Appetite, Difficulty Swallowing, Distension, Nausea, Vomiting Genitourinary: Denies: Dysuria, Frequency, Burning, Pain, Urgency, Incontinence Musculoskeletal: Denies: Neck Pain, Shoulder Pain, Arm Pain, Back Pain, Hand Pain, Leg Pain, Foot Pain, Joint Pain, Joint Swelling, Muscle Pain, Muscle Stiffness Skin: Denies: Cyanosis, Jaundice, Mottled, Pallor, Diaphoresis, Dryness Psychiatric: Denies: Confusion, Depression, Mood Lability, Anxiety Neurological: Denies: Confusion, Dizziness, Headache, Numbness, Paresthesia Hematologic/Lymphatic: Denies: Anemia, Easy Bleeding, Easy Bruising Exam - Exam Exam: See Below - Vital Signs Vital Signs: Last Vital Signs Temp 98.6 F 04/18/19 12:00 Pulse 97 04/18/19 10:55 Resp 22 H 04/18/19 12:00 BP 103/72 04/18/19 13:00 Pulse Ox 93 L 04/18/19 12:00 Weight: 91.444 kg - Exam Quality Assessment: Supplemental Oxygen General: Alert, Oriented, Moderate Distress HEENT: Mucosa Moist & [place], Nares Patent Neck: Supple, Trachea Midline, +2 Carotid Pulse wo Bruit. No: Lymphadenopathy Lungs: Decreased Breath Sounds, Wheezing. No: Crackles, Rales, Rhonchi, Rub Cardiovascular: Regular Rhythm, Tachycardia. No: Systolic Murmur, Diastolic Murmur, Rubs, Gallop/S3, Gallop/S4 GI/Abdominal Exam: Normal Bowel Sounds, Soft, Non-Tender. No: Distended, Guarding, Rigid Extremities: Normal Inspection, Normal Range of Motion Physical Exam Comments:: General Appearance: Alert, WD/WN, Mild Distress (Looks to be dyspneic, is tripoding, although he is able to speak in full sentences) Eye Exam: Bilateral Eye: EOMI, Normal Inspection Ears: Normal External Exam, Hearing Grossly Normal Nose: Normal Inspection Throat/Mouth: Normal Inspection, Normal Lips, Normal Voice, No Airway Compromise Head: Atraumatic, Normocephalic Neck: Normal Inspection, Full Range of Motion Respiratory/Chest: No Accessory Muscle Use, Decreased Breath Sounds, Wheezing ( expiratory throughout), Prolonged Expiration. No: Crackles, Rhonchi, Stridor Cardiovascular: Normal Peripheral Pulses, No Gallop, No JVD, No Murmur, No Rub, Tachycardia, Irregularly Irregular Peripheral Pulses: 4+: Radial (L), Radial (R) GI/Abdominal: Normal Bowel Sounds, Soft, Non-Tender, No Organomegaly, No Distention, No Abnormal Bruit, No Mass (Male) Exam: Deferred Rectal (Males) Exam: Deferred Back Exam: Normal Inspection, Full Range of Motion, NT Extremities: Normal Inspection, Normal Range of Motion, No Pedal Edema, Normal Capillary Refill Neurological: Alert, Oriented, Normal Cognition, No Motor/Sensory Deficits Psychiatric: Normal Affect Skin Exam: Warm, Dry, Intact, Normal Color, No Rash - Patient Data Lab Results Last 24 hrs: Laboratory Results - last 24 hr 04/18/19 04/18/19 04/18/19 Range/Units 05:55 05:55 05:55 WBC 9.53 H (4.23-9.07) K/mm3 RBC 4.55 L (4.63-6.08) M/mm3 Hgb 14.6 (13.7-17.5) gm/dl Hct 46.0 (40.1-51.0) % MCV 101.1 H (79.0-92.2) fl MCH 32.1 (25.7-32.2) pg MCHC 31.7 L (32.2-35.5) g/dl RDW Std Deviation 58.2 H (35.1-43.9) fL Plt Count 196 (163-337) K/mm3 MPV 9.1 L (9.4-12.3) fl Neutrophils % (Manual) 88 H (40-60) % Band Neutrophils % 0 (0-10) % Lymphocytes % (Manual) 8 L (20-40) % Atypical Lymphs % 0 % Monocytes % (Manual) 4 (2-10) % Eosinophils % (Manual) 0 L (0.8-7.0) % Basophils % (Manual) 0 L (0.2-1.2) Platelet Estimate Adequate Macrocytosis 2+ moderate RBC Morph Comment Not Reportable D-Dimer, Quantitative 0.41 (0.19-0.50) mg/L Puncture Site ABG pH (7.35-7.45) ABG pCO2 (35.0-45.0) mmHg ABG pO2 (80.0-100.0) mmHg ABG HCO3 (22.0-26.0) meq/L ABG O2 Saturation (96.0-97.0) % ABG Base Excess (-2-2.0) Oskar Test A-a Gradient mmHg O2 Delivery Device Oxygen Flow Rate FiO2 (21.00-100.00) % Sodium 139 (136-145) mEq/L Potassium 4.4 (3.5-5.1) mEq/L Chloride 102 (98-107) mEq/L Carbon Dioxide 31 (21-32) mEq/L Anion Gap 10.4 (5-15) BUN 29 H (7-18) mg/dL Creatinine 1.4 H (0.7-1.3) mg/dL Est Cr Clr Drug Dosing 42.71 mL/min Estimated GFR (MDRD) 50 (>60) mL/min BUN/Creatinine Ratio 20.7 H (14-18) Glucose 111 (80-115) mg/dL Lactic Acid (0.4-2.0) mmol/L Calcium 8.8 (8.5-10.1) mg/dL Total Bilirubin 0.5 (0.2-1.0) mg/dL AST 60 H (15-37) U/L ALT 75 H (16-63) U/L Alkaline Phosphatase 146 H (46-116) U/L Troponin I < 0.017 (0.00-0.056) ng/mL NT-Pro-B Natriuret Pep (0-125) pg/mL Total Protein 7.2 (6.4-8.2) g/dl Albumin 3.3 L (3.4-5.0) g/dl Globulin 3.9 gm/dL Albumin/Globulin Ratio 0.9 L (1-2) 04/18/19 04/18/19 04/18/19 Range/Units 05:55 06:25 06:25 WBC (4.23-9.07) K/mm3 RBC (4.63-6.08) M/mm3 Hgb (13.7-17.5) gm/dl Hct (40.1-51.0) % MCV (79.0-92.2) fl MCH (25.7-32.2) pg MCHC (32.2-35.5) g/dl RDW Std Deviation (35.1-43.9) fL Plt Count (163-337) K/mm3 MPV (9.4-12.3) fl Neutrophils % (Manual) (40-60) % Band Neutrophils % (0-10) % Lymphocytes % (Manual) (20-40) % Atypical Lymphs % % Monocytes % (Manual) (2-10) % Eosinophils % (Manual) (0.8-7.0) % Basophils % (Manual) (0.2-1.2) Platelet Estimate Macrocytosis RBC Morph Comment D-Dimer, Quantitative (0.19-0.50) mg/L Puncture Site Rt radial ABG pH 7.37 (7.35-7.45) ABG pCO2 53.3 H (35.0-45.0) mmHg ABG pO2 74.0 L (80.0-100.0) mmHg ABG HCO3 30 H (22.0-26.0) meq/L ABG O2 Saturation 91.8 L (96.0-97.0) % ABG Base Excess 3.8 H (-2-2.0) Oskar Test Positive A-a Gradient 117 mmHg O2 Delivery Device Cannula Oxygen Flow Rate 4.0 FiO2 36.00 (21.00-100.00) % Sodium (136-145) mEq/L Potassium (3.5-5.1) mEq/L Chloride (98-107) mEq/L Carbon Dioxide (21-32) mEq/L Anion Gap (5-15) BUN (7-18) mg/dL Creatinine (0.7-1.3) mg/dL Est Cr Clr Drug Dosing mL/min Estimated GFR (MDRD) (>60) mL/min BUN/Creatinine Ratio (14-18) Glucose (80-115) mg/dL Lactic Acid 1.5 (0.4-2.0) mmol/L Calcium (8.5-10.1) mg/dL Total Bilirubin (0.2-1.0) mg/dL AST (15-37) U/L ALT (16-63) U/L Alkaline Phosphatase (46-116) U/L Troponin I (0.00-0.056) ng/mL NT-Pro-B Natriuret Pep 1534 H (0-125) pg/mL Total Protein (6.4-8.2) g/dl Albumin (3.4-5.0) g/dl Globulin gm/dL Albumin/Globulin Ratio (1-2) Result Diagrams: 04/20/19 05:16 04/20/19 05:16 Sepsis Event Note - Evaluation Sepsis Screening Result: No Definite Risk - Focused Exam Vital Signs: Vital Signs Temp Pulse Resp BP Pulse Ox Pulse Ox 04/18/19 13:00 103/72 04/18/19 12:00 98.6 F 22 H 105/78 93 L 04/18/19 11:00 97.3 F 26 H 95 04/18/19 10:55 97 36 H 116/86 92 L 04/18/19 07:20 91 L 04/18/19 05:47 98.9 F 120 H 25 H 133/95 H 79 L Date Exam was Performed: 04/20/19 Time Exam was Performed: 21:25 - Problem List (1) COPD exacerbation SNOMED Code(s): 111525841 ICD Code: J44.1 - CHRONIC OBSTRUCTIVE PULMONARY DISEASE W (ACUTE) EXACERBATION Status: Acute Current Visit: Yes (2) Acute hypoxemic respiratory failure SNOMED Code(s): 869135524 ICD Code: J96.01 - ACUTE RESPIRATORY FAILURE WITH HYPOXIA Status: Acute Priority: High Current Visit: No (3) Acute renal failure SNOMED Code(s): 59418820 ICD Code: N17.9 - ACUTE KIDNEY FAILURE, UNSPECIFIED Status: Acute Current Visit: No (4) COPD (chronic obstructive pulmonary disease) SNOMED Code(s): 21074896 ICD Code: J44.9 - CHRONIC OBSTRUCTIVE PULMONARY DISEASE, UNSPECIFIED Status : Acute Current Visit: No Qualifiers: COPD type: unspecified COPD Qualified Code(s): J44.9 - Chronic obstructive pulmonary disease, unspecified (5) Atrial fibrillation with RVR SNOMED Code(s): 528654896505252 ICD Code: I48.91 - UNSPECIFIED ATRIAL FIBRILLATION Status: Acute Current Visit: Yes Problem List Initiated/Reviewed/Updated: Yes Assessment/Plan Comment:: COPD exacerbation Acute hypoxemic respiratory failure Discharged 2 days ago after patient insisted he was back at baseline and would fully recover at home Discharged on scheduled neb treatments Came back today with inability to catch breath PLAN - Respiratory panel PCR - Scheduled DuoNebs - Inhaled steroids - PO steroids - Influenza swab - RT assess and treat - Procalcitonin Acute renal failure GFR on admission 50 likely from poor oral intake PLAN - Renally dosed medications - Avoid nephrotoxic agents as much as possible - Monitor urine output - Repeat labs in AM Atrial fibrillation with RVR Came in stating he had been using albuterol every hour prior to admission HR > 120 despite Cardizem in ED PLAN - Cardizem drip Anxiety Home BDZ No recent panic attacks PLAN - Continue home med PROPHYLAXIS DVT- Lovenox GI- Not indicated CODE STATUS: FULL CODE DISPOSITION: Patient will be admitted to ICU for Cardizem drip and scheduled neb treatments. - Mortality Measure Prognosis:: Poor (poor compliance)
[2019-04-18] MEDS ORDERED: methylPREDNISolone Sod Succ 125 MG in Sodium Chloride 0.9% 250 ML IV SCH (13:30)
[2019-04-18] MEDS: Albuterol/Ipratropium 3.0-0.5 MG/3 ML Neb Soln NEB SCH ×3 (13:57→22:03)
[2019-04-18] MEDS: Benzonatate 100 MG Cap PO SCH ×2 (14:03→20:05)
[2019-04-18] MEDS: Codeine/guaiFENesin 10-100 MG/5 ML Syrup 5 ML Cup PO SCH ×3 (14:03→20:04)
[2019-04-18] MEDS: methylPREDNISolone Sodium Succinate 125 MG/2 ML SDV IVPUSH SCH (20:05)
[2019-04-18] MEDS ORDERED: Cyclobenzaprine 10 MG Tab PO PRN (20:12)
[2019-04-18] MEDS: ClonazePAM 1 MG Tab PO SCH (20:18)
[2019-04-18] MEDS: Mirtazapine 30 MG Tab PO SCH (20:18)
[2019-04-18] MEDS: Budesonide 0.5 MG/2 ML Neb Susp NEB SCH (22:02)
[2019-04-19] MEDS: Codeine/guaiFENesin 10-100 MG/5 ML Syrup 5 ML Cup PO SCH ×2 (01:11→08:01)
[2019-04-19] MEDS: Albuterol/Ipratropium 3.0-0.5 MG/3 ML Neb Soln NEB SCH ×6 (01:47→21:02)
[2019-04-19 04:46] LABS: BORDETELLA PARAPERT IS1001 Not Detected (Not Detected)
[2019-04-19] MEDS: Budesonide 0.5 MG/2 ML Neb Susp NEB SCH ×2 (06:34→20:49)
[2019-04-19] MEDS ORDERED: Lactated Ringers 1,000 ML IV SCH (08:45)
--- NOTE | 2019-04-19 09:25 | PCM.PN ---
- General Info Date of Service: 04/19/19 Subjective Update: Feeling better Slept ok Still short of breath Tolerating diet - Patient Data Vitals - Most Recent: Last Vital Signs Temp 97.7 F 04/19/19 07:53 Pulse 97 04/18/19 10:55 Resp 21 H 04/19/19 07:53 BP 90/65 04/19/19 07:53 Pulse Ox 92 L 04/19/19 09:00 Weight - Most Recent: 91.5 kg - Exam Quality Assessment: Supplemental Oxygen General: Alert, Oriented, Mild Distress HEENT: Pupils Equal, Pupils Reactive, Mucous Membr. Moist/[place] Neck: Supple, Trachea Midline, No JVD, No Thyromegaly, +2 Carotid Pulse wo Bruit. No: Lymphadenopathy Lungs: Decreased Breath Sounds, Wheezing Cardiovascular: Regular Rate, Regular Rhythm. No: Murmurs, Gallops, Rubs GI/Abdominal Exam: Normal Bowel Sounds, Soft, Non-Tender, Distended. No: Guarding, Rigid Back Exam: Normal Inspection Extremities: Normal Inspection Sepsis Event Note - Evaluation Sepsis Screening Result: No Definite Risk - Focused Exam Vital Signs: Vital Signs Temp Resp BP Pulse Ox Pulse Ox Pulse Ox 04/19/19 09:00 92 L 04/19/19 07:53 97.7 F 21 H 90/65 91 L 04/19/19 06:36 93 L 04/19/19 04:00 97.4 F 19 132/81 90 L 04/18/19 22:08 92 L Date Exam was Performed: 04/20/19 Time Exam was Performed: 21:32 - Problem List & Annotations (1) Influenza B SNOMED Code(s): 83744237 Code(s): J10.1 - FLU DUE TO OTH IDENT INFLUENZA VIRUS W OTH RESP MANIFEST Status: Acute Current Visit: Yes (2) Influenzal pneumonia SNOMED Code(s): 93481753046427 Code(s): J11.00 - FLU DUE TO UNIDENTIFIED FLU VIRUS W UNSP TYPE OF PNEUMONIA Status: Acute Current Visit: Yes (3) Atrial fibrillation with RVR SNOMED Code(s): 550253913532050 Code(s): I48.91 - UNSPECIFIED ATRIAL FIBRILLATION Status: Acute Current Visit: Yes (4) COPD exacerbation SNOMED Code(s): 093491020 Code(s): J44.1 - CHRONIC OBSTRUCTIVE PULMONARY DISEASE W (ACUTE) EXACERBATION Status: Acute Current Visit: Yes (5) Acute hypoxemic respiratory failure SNOMED Code(s): 452852174 Code(s): J96.01 - ACUTE RESPIRATORY FAILURE WITH HYPOXIA Status: Acute Priority: High Current Visit: No (6) Acute renal failure SNOMED Code(s): 57618133 Code(s): N17.9 - ACUTE KIDNEY FAILURE, UNSPECIFIED Status: Acute Current Visit: No (7) Anxiety SNOMED Code(s): 71834153 Code(s): F41.9 - ANXIETY DISORDER, UNSPECIFIED Status: Acute Current Visit: No - Problem List Review Problem List Initiated/Reviewed/Updated: Yes - Plan Plan:: Influenza B pneumonia COPD exacerbation Acute hypoxemic respiratory failure Discharged 2 days ago after patient insisted he was back at baseline and would fully recover at home Discharged on scheduled neb treatments Came back today with inability to catch breath Mild procalcitonin elevation PLAN - Scheduled DuoNebs - Inhaled steroids - RT assess and treat - Tamiflu Acute renal failure GFR on admission 50 likely from poor oral intake PLAN - Renally dosed medications - Avoid nephrotoxic agents as much as possible - Monitor urine output - Repeat labs in AM Atrial fibrillation with RVR Came in stating he had been using albuterol every hour prior to admission HR > 120 despite Cardizem in ED Off drip PLAN - Restart home medications Anxiety Home BDZ No recent panic attacks PLAN - Continue home med PROPHYLAXIS DVT- Lovenox GI- Not indicated CODE STATUS: FULL CODE DISPOSITION: Will remain admitted until oxygenation improves. Still requiring supplementation.
[2019-04-19] MEDS: methylPREDNISolone Sodium Succinate 125 MG/2 ML SDV IVPUSH SCH ×2 (09:36→20:52)
[2019-04-19] MEDS: guaiFENesin 600 MG Tab.ER PO SCH ×2 (09:36→20:53)
[2019-04-19] MEDS: Oseltamivir 30 MG Cap PO SCH ×2 (09:36→20:53)
[2019-04-19] MEDS: Benzonatate 100 MG Cap PO SCH ×3 (09:36→20:53)
--- NOTE | 2019-04-19 11:41 | CT ---
CT chest Technique: Multiple axial sections through the chest were obtained. Intravenous contrast was not utilized. Comparison: Prior CT chest study of 02/06/19. Findings: Diffuse emphysematous change is seen. Parenchymal density is noted within the lingula which is an interval change from prior exam. Difficult to exclude area of pneumonia. There is also increased density within the right hilar region which is also an interval change from prior study which could represent additional pneumonia. Atherosclerotic calcification is noted within a nondilated thoracic aorta. Several mediastinal lymph nodes are seen believed to be within normal limits. No axillary adenopathy is seen. No pericardial thickening is identified. Coronary artery calcification is noted. Visualized upper abdominal structures show no discrete abnormality. Impression: 1. Areas of increased density within the right perihilar region and lingula. This is an interval change from prior exam raising the possibility of pneumonia. 2. Other findings as noted above. Diagnostic code #3 This report was dictated in [place] Standard Time
[2019-04-19] MEDS: ClonazePAM 1 MG Tab PO SCH (20:52)
[2019-04-19] MEDS: Mirtazapine 30 MG Tab PO SCH (20:52)
[2019-04-20] MEDS: Albuterol/Ipratropium 3.0-0.5 MG/3 ML Neb Soln NEB SCH ×3 (01:18→09:11)
[2019-04-20] MEDS: Budesonide 0.5 MG/2 ML Neb Susp NEB SCH ×2 (06:08→20:49)
[2019-04-20] MEDS ORDERED: RANITIDINE 300 MG PO SCH (08:00)
[2019-04-20] MEDS: Verapamil 120 MG Cap.ER PO SCH ×2 (08:13→20:23)
[2019-04-20] MEDS: Cholecalciferol (Vitamin D3) 25 MCG Tab PO SCH ×2 (08:13→20:23)
[2019-04-20] MEDS: Famotidine 20 MG Tab PO SCH (08:13)
[2019-04-20] MEDS: ClonazePAM 0.5 MG Tab PO SCH (08:13)
[2019-04-20] MEDS: Oseltamivir 75 MG Cap PO SCH ×2 (08:17→20:22)
[2019-04-20] MEDS: guaiFENesin 600 MG Tab.ER PO SCH ×2 (08:17→20:22)
[2019-04-20] MEDS: Tamsulosin 0.4 MG Cap.ER PO SCH ×2 (08:17→20:23)
[2019-04-20] MEDS: Potassium Chloride 10 MEQ Tab.ER PO SCH ×2 (08:17→20:22)
[2019-04-20] MEDS: Apixaban 5 MG Tab PO SCH ×2 (08:17→20:22)
[2019-04-20] MEDS: Benzonatate 100 MG Cap PO SCH ×2 (08:17→15:57)
[2019-04-20] MEDS: Furosemide 40 MG Tab PO SCH (08:17)
[2019-04-20] MEDS: Clopidogrel 75 MG Tab PO SCH (08:17)
[2019-04-20] MEDS: Levalbuterol HCl 1.25 MG/3 ML Neb NEB SCH ×3 (13:16→21:01)
[2019-04-20] MEDS ORDERED: Budesonide 0.5 MG/2 ML Neb Susp NEB ONE (17:44)
[2019-04-20] MEDS ORDERED: methylPREDNISolone Sodium Succinate 125 MG/2 ML SDV IVPUSH ONE (17:45)
[2019-04-20] MEDS ORDERED: LORazepam 0.5 MG Tab PO ONE (17:45)
[2019-04-20] MEDS ORDERED: Albuterol/Ipratropium 3.0-0.5 MG/3 ML Neb Soln NEB ONE (17:45)
[2019-04-20] MEDS: Mirtazapine 30 MG Tab PO SCH (20:23)
[2019-04-20] MEDS: ClonazePAM 1 MG Tab PO SCH (20:24)
[2019-04-20] MEDS ORDERED: Simvastatin 20 MG Tab PO SCH (21:00)
[2019-04-20] MEDS ORDERED: Non-Formulary Medication 1 Each (Magnesium Oxide [Magnesium Oxide] 420 MG) PO SCH (21:00)
[2019-04-20] MEDS ORDERED: PARoxetine 20 MG Tab PO SCH (21:00)
--- NOTE | 2019-04-20 21:39 | PCM.PN ---
- General Info Date of Service: 04/20/19 Subjective Update: feeling better Slept ok Tolerating diet Asking to go home - Patient Data Vitals - Most Recent: Last Vital Signs Temp 98.9 F 04/20/19 16:00 Pulse 70 04/20/19 20:31 Resp 20 04/20/19 20:31 BP 101/72 04/20/19 20:31 Pulse Ox 91 L 04/20/19 20:51 Weight - Most Recent: 91.5 kg - Exam Quality Assessment: Supplemental Oxygen General: Alert, Oriented, Mild Distress HEENT: Pupils Equal, Pupils Reactive, Mucous Membr. Moist/[place] Neck: Supple, Trachea Midline, No JVD, No Thyromegaly Lungs: Decreased Breath Sounds, Crackles, Wheezing, Other (interval improvement) Cardiovascular: Regular Rate, Regular Rhythm. No: Murmurs, Gallops, Rubs GI/Abdominal Exam: Normal Bowel Sounds, Soft, Non-Tender. No: Distended, Guarding, Rigid Back Exam: Normal Inspection. No: CVA Tenderness (L), CVA Tenderness (R) Extremities: Normal Inspection, Normal Range of Motion Skin: Warm, Dry Neurological: No New Focal Deficit Psy/Mental Status: Alert Sepsis Event Note - Evaluation Sepsis Screening Result: No Definite Risk - Focused Exam Vital Signs: Vital Signs Temp Pulse Pulse Resp BP BP Pulse Ox 04/20/19 20:51 04/20/19 20:31 70 20 101/72 95 04/20/19 20:23 70 108/73 04/20/19 20:20 70 20 108/73 92 L 04/20/19 18:23 92 L 04/20/19 18:00 44 L 95 04/20/19 17:01 04/20/19 17:00 111 H 92 L 04/20/19 16:13 85 88 L 04/20/19 16:00 98.9 F 98 20 112/85 88 L 04/20/19 13:25 04/20/19 13:16 04/20/19 10:00 97.6 F 68 20 118/72 92 L Pulse Ox Pulse Ox 04/20/19 20:51 91 L 04/20/19 20:31 04/20/19 20:23 04/20/19 20:20 04/20/19 18:23 04/20/19 18:00 04/20/19 17:01 92 L 04/20/19 17:00 04/20/19 16:13 04/20/19 16:00 04/20/19 13:25 90 L 04/20/19 13:16 90 L 04/20/19 10:00 Date Exam was Performed: 04/20/19 Time Exam was Performed: 21:37 - Problem List & Annotations (1) Influenza B SNOMED Code(s): 91294240 Code(s): J10.1 - FLU DUE TO OTH IDENT INFLUENZA VIRUS W OTH RESP MANIFEST Status: Acute Current Visit: Yes (2) Influenzal pneumonia SNOMED Code(s): 99500328927450 Code(s): J11.00 - FLU DUE TO UNIDENTIFIED FLU VIRUS W UNSP TYPE OF PNEUMONIA Status: Acute Current Visit: Yes (3) Atrial fibrillation with RVR SNOMED Code(s): 654972157157624 Code(s): I48.91 - UNSPECIFIED ATRIAL FIBRILLATION Status: Acute Current Visit: Yes (4) COPD exacerbation SNOMED Code(s): 349120673 Code(s): J44.1 - CHRONIC OBSTRUCTIVE PULMONARY DISEASE W (ACUTE) EXACERBATION Status: Acute Current Visit: Yes (5) Acute hypoxemic respiratory failure SNOMED Code(s): 562948146 Code(s): J96.01 - ACUTE RESPIRATORY FAILURE WITH HYPOXIA Status: Acute Priority: High Current Visit: No (6) Acute renal failure SNOMED Code(s): 60046793 Code(s): N17.9 - ACUTE KIDNEY FAILURE, UNSPECIFIED Status: Acute Current Visit: No (7) Anxiety SNOMED Code(s): 13029265 Code(s): F41.9 - ANXIETY DISORDER, UNSPECIFIED Status: Acute Current Visit: No - Problem List Review Problem List Initiated/Reviewed/Updated: Yes - Plan Plan:: Influenza B pneumonia COPD exacerbation Acute hypoxemic respiratory failure Discharged 2 days ago after patient insisted he was back at baseline and would fully recover at home Discharged on scheduled neb treatments Came back today with inability to catch breath Mild procalcitonin elevation PLAN - Scheduled DuoNebs - Inhaled steroids - RT assess and treat - Tamiflu, continue - Repeat procalcitonin in AM Atrial fibrillation with RVR Came in stating he had been using albuterol every hour prior to admission HR > 120 despite Cardizem in ED Off drip PLAN - Restart home medications Anxiety Home BDZ No recent panic attacks PLAN - Continue home med Acute renal failure, resolved PROPHYLAXIS DVT- Lovenox GI- Not indicated CODE STATUS: FULL CODE DISPOSITION: Improving clinically but still needs oxygen supplementation and scheduled breathing treatments, will evaluate in AM.
[2019-04-21] MEDS: Levalbuterol HCl 1.25 MG/3 ML Neb NEB SCH ×3 (02:00→09:04)
[2019-04-21] MEDS: Budesonide 0.5 MG/2 ML Neb Susp NEB SCH (05:31)
[2019-04-21] MEDS: ClonazePAM 0.5 MG Tab PO SCH (06:18)
[2019-04-21] MEDS: Potassium Chloride 10 MEQ Tab.ER PO SCH (09:15)
[2019-04-21] MEDS: Clopidogrel 75 MG Tab PO SCH (09:15)
[2019-04-21] MEDS: Apixaban 5 MG Tab PO SCH (09:15)
[2019-04-21] MEDS: Verapamil 120 MG Cap.ER PO SCH (09:15)
[2019-04-21] MEDS: Oseltamivir 75 MG Cap PO SCH (09:15)
[2019-04-21] MEDS: Tamsulosin 0.4 MG Cap.ER PO SCH (09:15)
[2019-04-21] MEDS: Furosemide 40 MG Tab PO SCH (09:15)
[2019-04-21] MEDS: Famotidine 20 MG Tab PO SCH (09:15)
[2019-04-21] MEDS: Cholecalciferol (Vitamin D3) 25 MCG Tab PO SCH (09:15)
[2019-04-21] MEDS: guaiFENesin 600 MG Tab.ER PO SCH (09:16)
[2019-04-21 09:18] VITALS: BP 120/73; PULSE 56
--- NOTE | 2019-04-21 12:10 | PCM.DCSUM1 ---
Discharge Summary - Hospital Course HPI Initial Comments: 68-year-old man with a past medical history significant for COPD on nightly oxygen, obstructive sleep apnea on nightly AutoPap, CHF, CAD status post 5 MIs, and paroxysmal atrial fibrillation who comes to the ED via EMS complaining of acutely worsening shortness of breath. Upon arrival, the patient is tachycardic , tachypneic, with an oxygen saturation of 79% on room air. Of note he was admitted to this hospital from , 04/14/2019 through 04/16/2019 for a COPD exacerbation and respiratory failure. He states that he felt great on 04/15/2019, and Thursday during the day, however, he states that he was given N-acetylcysteine (Mucomyst) nebs prior to being discharged home, and by the time he was discharged home, he says his breathing was difficult again. He states that he had a bad weekend, and probably should have come in yesterday. He states that he has had a cough productive of clear sputum, and that he has been wheezing. He denies having a fever. He states that he has been taking albuterol by nebulizer every hour since yesterday, and albuterol by MDI with a spacer chamber every 15 minutes, in addition to the albuterol by neb. He has also been taking his usual Spiriva and Symbicort as prescribed. He has continued with his nightly oxygen and AutoPap. Diagnosis: Stroke: No - Discharge Data Discharge Date: 04/21/19 Discharge Disposition: Home, Self-Care 01 Condition: Stable - Referral to Home Health Primary Care Physician: Ana Benjamin MD - Patient Summary/Data Hospital Course: Patient was admitted for COPD exacerbation. Found to have influenza B pneumonia. Was put on Tamiflu and is doing better. He has had 3 days of Tamiflu. Initially he was found in A. fib with RVR and was initially on a Cardizem drip. He had his home medications restarted and is back under rate control. Patient does suffer from anxiety attacks and has had Klonopin. Patient is on Klonopin at home. Patient is on a O2 via nasal cannula at home which ranges from 0.5 to 2 L. This morning patient's O2 requirements ranged from 1 to 2 L. Patient was very adamant about going home today and will be discharged on Tamiflu. - Patient Instructions Diet: Usual Diet as Tolerated, No Alcoholic Beverages Activity: As Tolerated Driving: Do Not Drive Showering/Bathing: May Shower Other/Special Instructions: Follow up with PCP in 1 week. Finish Tamiflu. - Discharge Plan *PRESCRIPTION DRUG MONITORING PROGRAM REVIEWED*: Not Applicable *COPY OF PRESCRIPTION DRUG MONITORING REPORT IN PATIENT DANITZA: Not Applicable Prescriptions/Med Rec: guaiFENesin [Mucinex] 600 mg PO BID #20 tab.er Oseltamivir [Tamiflu] 75 mg PO BID #5 cap Home Medications: Home Meds Clopidogrel [Plavix] 75 mg PO DAILY 04/12/14 [History] Furosemide [Lasix] 40 mg PO DAILY 04/12/14 [History] PARoxetine HCl [Paxil] 20 mg PO DAILY 04/12/14 [History] Potassium Chloride 10 meq PO BID 04/12/14 [History] Tamsulosin HCl [Flomax] 0.4 mg PO BID 04/12/14 [History] Tiotropium [Spiriva HandiHaler] 1 cap INH DAILY 04/12/14 [History] Simvastatin [Zocor] 20 mg PO BEDTIME 02/03/15 [History] Apixaban [Eliquis] 5 mg PO BID 01/23/16 [History] Verapamil [Calan SR] 120 mg PO BID 01/23/16 [History] Albuterol Sulfate [Proair Respiclick] 2 puff INH Q4H PRN 10/18/16 [History] ClonazePAM [KlonoPIN] 1 mg PO BEDTIME 10/18/16 [History] Ipratropium [place] 1 spray NASBOTH BID 10/18/16 [History] Ranitidine [Zantac] 300 mg PO QAM 10/18/16 [History] Cholecalciferol (Vitamin D3) [Vitamin D] 1,000 unit PO BID 04/13/17 [History] Mirtazapine 30 mg PO BEDTIME 04/13/17 [History] Magnesium Oxide 420 mg PO BEDTIME 02/19/18 [History] ClonazePAM [KlonoPIN] 0.5 mg PO ACBREAKFAST 02/06/19 [History] Albuterol/Ipratropium [DuoNeb 3.0-0.5 MG/3 ML] 3 ml NEB Q6HR 04/18/19 [History] Budesonide/Formoterol [Symbicort 160-4.5 MCG] 2 puff INH DAILY 04/18/19 [History ] Oseltamivir [Tamiflu] 75 mg PO BID #5 cap 04/21/19 [Rx] guaiFENesin [Mucinex] 600 mg PO BID #20 tab.er 04/21/19 [Rx] Oxygen Therapy Mode: Nasal Cannula Oxygen Flow Rate (L/min): 2 Maintain SpO2% greater than: 90 Forms: ED Department Discharge Referrals: Ana Benjamin MD [Primary Care Provider] - - Discharge Summary/Plan Comment DC Time >30 min.: Yes Discharge Summary/Plan Comment: Finish 5-day course of Tamiflu. Follow-up with PCP in 1 week. - General Info Date of Service: 04/21/19 Admission Dx/Problem (Free Text: Admission Diagnosis/Problem Admission Diagnosis/Problem COPD, Severe chronic obstructive pulmonary disease Subjective Update: Patient is doing well. He states he is feeling better and has more energy. Shortness of breath has improved. He is ready to go home. - Review of Systems General: Reports: No Symptoms HEENT: Reports: No Symptoms Pulmonary: Reports: Shortness of Breath, Wheezing Cardiovascular: Reports: No Symptoms Gastrointestinal: Reports: No Symptoms - Patient Data Vitals - Most Recent: Last Vital Signs Temp 97.3 F 04/21/19 07:39 Pulse 56 L 04/21/19 09:15 Resp 04/21/19 07:39 BP 120/73 04/21/19 09:15 Pulse Ox 85 L 04/21/19 09:04 Weight - Most Recent: 193 lb 9.6 oz I&O - Last 24 hours: Intake & Output 04/20/19 04/21/19 04/21/19 22:59 06:59 14:59 Intake Total 760 400 640 Output Total 700 Balance 60 400 640 Lab Results - Last 24 hrs: Laboratory Results - last 24 hr 04/20/19 04/21/19 04/21/19 Range/Units 17:39 09:00 09:00 WBC 5.79 (4.23-9.07) K/mm3 RBC 4.52 L (4.63-6.08) M/mm3 Hgb 14.9 (13.7-17.5) gm/dl Hct 44.2 (40.1-51.0) % MCV 97.8 H (79.0-92.2) fl MCH 33.0 H (25.7-32.2) pg MCHC 33.7 (32.2-35.5) g/dl RDW Std Deviation 55.1 H (35.1-43.9) fL Plt Count 160 L (163-337) K/mm3 MPV 9.3 L (9.4-12.3) fl Neut % (Auto) 81.9 H (34.0-67.9) % Lymph % (Auto) 10.5 L (21.8-53.1) % [place] % (Auto) 6.4 (5.3-12.2) % Eos % (Auto) 0 L (0.8-7.0) Baso % (Auto) 1.2 (0.1-1.2) % Neut # (Auto) 4.74 (1.78-5.38) K/mm3 Lymph # (Auto) 0.61 L (1.32-3.57) K/mm3 [place] # (Auto) 0.37 (0.30-0.82) K/mm3 Eos # (Auto) 0.00 L (0.04-0.54) K/mm3 Baso # (Auto) 0.07 (0.01-0.08) K/mm3 Manual Slide Review Abnormal smear Puncture Site Rt radial ABG pH 7.45 (7.35-7.45) ABG pCO2 42.4 (35.0-45.0) mmHg ABG pO2 78.0 L (80.0-100.0) mmHg ABG HCO3 29.1 H (22.0-26.0) meq/L ABG O2 Saturation 95.1 L (96.0-97.0) % ABG Base Excess 5.0 H (-2-2.0) Oskar Test Positive A-a Gradient 155 mmHg O2 Delivery Device Nasal cannula Oxygen Flow Rate 3.0 FiO2 32.00 (21.00-100.00) % Sodium 136 (136-145) mEq/L Potassium 4.2 (3.5-5.1) mEq/L Chloride 96 L (98-107) mEq/L Carbon Dioxide 31 (21-32) mEq/L Anion Gap 13.2 (5-15) BUN 36 H (7-18) mg/dL Creatinine 1.5 H (0.7-1.3) mg/dL Est Cr Clr Drug Dosing 41.35 mL/min Estimated GFR (MDRD) 46 (>60) mL/min BUN/Creatinine Ratio 24.0 H (14-18) Glucose 372 H (80-115) mg/dL Calcium 9.0 (8.5-10.1) mg/dL Magnesium 2.5 H (1.8-2.4) mg/dl Total Bilirubin 0.5 (0.2-1.0) mg/dL AST 22 (15-37) U/L ALT 63 (16-63) U/L Alkaline Phosphatase 139 H (46-116) U/L C-Reactive Protein 2.4 H* (<1.0) mg/dL Total Protein 6.8 (6.4-8.2) g/dl Albumin 2.9 L (3.4-5.0) g/dl Globulin 3.9 gm/dL Albumin/Globulin Ratio 0.7 L (1-2) CHRISTOPHER Results - Last 24 hrs: Microbiology 04/18/19 06:26 Aerobic Blood Culture - Preliminary Blood - Venous - Lab Draw NO GROWTH AFTER 3 DAYS Anaerobic Blood Culture - Preliminary NO GROWTH AFTER 3 DAYS 04/18/19 06:20 Aerobic Blood Culture - Preliminary Blood - Venous NO GROWTH AFTER 3 DAYS Anaerobic Blood Culture - Preliminary NO GROWTH AFTER 3 DAYS Med Orders - Current: Current Medications Acetaminophen (Tylenol) 650 mg PO Q4H PRN PRN Reason: Pain (Mild 1-3)/fever Apixaban (Eliquis) 5 mg PO BID [facility] Last Admin: 04/21/19 09:15 Dose: 5 mg Budesonide (Pulmicort) 0.5 mg NEB BIDRT [facility] Last Admin: 04/21/19 05:31 Dose: 0.5 mg Cholecalciferol (Vitamin D3) 25 mcg PO BID [facility] Last Admin: 04/21/19 09:15 Dose: 25 mcg Clonazepam (Klonopin) 1 mg PO BEDTIME [facility] Last Admin: 04/20/19 20:24 Dose: 1 mg Clonazepam (Klonopin) 0.5 mg PO ACBREAKFAST [facility] Last Admin: 04/21/19 06:18 Dose: 0.5 mg Clopidogrel Bisulfate (Plavix) 75 mg PO DAILY [facility] Last Admin: 04/21/19 09:15 Dose: 75 mg Cyclobenzaprine HCl (Flexeril) 10 mg PO Q8H PRN PRN Reason: Muscle Spasm Last Admin: 04/18/19 20:18 Dose: 10 mg Famotidine (Pepcid) 20 mg PO 0800 [facility] Last Admin: 04/21/19 09:15 Dose: 20 mg Furosemide (Lasix) 40 mg PO DAILY [facility] Last Admin: 04/21/19 09:15 Dose: 40 mg Guaifenesin (Mucinex) 600 mg PO BID [facility] Last Admin: 04/21/19 09:16 Dose: 600 mg Levalbuterol HCl (Xopenex) 1.25 mg NEB Q4HRRT [facility] Last Admin: 04/21/19 09:04 Dose: 1.25 mg Mirtazapine (Remeron) 30 mg PO BEDTIME [facility] Last Admin: 04/20/19 20:23 Dose: 30 mg Ondansetron HCl (Zofran Odt) 4 mg PO Q6H PRN PRN Reason: nausea, able to take PO Last Admin: 04/18/19 20:18 Dose: 4 mg Ondansetron HCl (Zofran) 4 mg IV Q6H PRN PRN Reason: Nausea/Vomiting Oseltamivir Phosphate (Tamiflu) 75 mg PO BID [facility] Last Admin: 04/21/19 09:15 Dose: 75 mg Paroxetine HCl (Paxil) 20 mg PO BEDTIME [facility] Last Admin: 04/20/19 20:22 Dose: 20 mg Potassium Chloride (Klor-Con 10) 10 meq PO BID [facility] Last Admin: 04/21/19 09:15 Dose: 10 meq Simvastatin (Zocor) 20 mg PO BEDTIME [facility] Last Admin: 04/20/19 20:22 Dose: 20 mg Tamsulosin HCl (Flomax) 0.4 mg PO BID [facility] Last Admin: 04/21/19 09:15 Dose: 0.4 mg Verapamil HCl (Verelan) 120 mg PO BID [facility] Last Admin: 04/21/19 09:15 Dose: 120 mg Discontinued Medications Albuterol/Ipratropium (Duoneb 3.0-0.5 Mg/3 Ml) 3 ml NEB Q4HRRT [facility] Last Admin: 04/20/19 09:11 Dose: 3 ml Albuterol/Ipratropium (Duoneb 3.0-0.5 Mg/3 Ml) 3 ml NEB ONETIME ONE Stop: 04/20/19 17:46 Last Admin: 04/20/19 17:57 Dose: 3 ml Benzonatate (Tessalon Perles) 200 mg PO TID [facility] Last Admin: 04/20/19 15:57 Dose: Not Given Budesonide (Pulmicort) 0.5 mg NEB ONETIME ONE Stop: 04/20/19 17:45 Last Admin: 04/20/19 17:57 Dose: 0.5 mg Diltiazem HCl (Cardizem) 5 mg IVPUSH ONETIME STA Stop: 04/18/19 08:03 Last Admin: 04/18/19 09:00 Dose: 5 mg Guaifenesin/Codeine Phosphate (Robitussin Ac) 5 ml PO Q6H [facility] Last Admin: 04/19/19 08:01 Dose: Not Given Diltiazem HCl 125 mg/ Sodium (Chloride) 125 mls @ 10 mls/hr IV TITRATE [facility]; Protocol Last Titration: 04/18/19 12:30 Dose: 0 mg/hr, 0 mls/hr Methylprednisolone Sodium Succinate 125 mg/ Sodium Chloride 251 mls @ 251 mls/ hr IV BID [facility] Stop: 04/19/19 09:01 Last Admin: 04/18/19 13:45 Dose: Not Given Lactated Ringer's (Ringers, Lactated) 1,000 mls @ 75 mls/hr IV ASDIRECTED [facility] Last Admin: 04/19/19 09:35 Dose: 75 mls/hr Ipratropium [place] (Atrovent) 0.5 mg NEB ONETIME ONE Stop: 04/18/19 07:01 Last Admin: 04/18/19 07:16 Dose: 0.5 mg Lorazepam (Ativan) 0.5 mg PO ONETIME ONE Stop: 04/20/19 17:46 Last Admin: 04/20/19 18:04 Dose: 0.5 mg Methylprednisolone Sodium Succinate (Solu-Medrol) 125 mg IVPUSH BID [facility] Stop: 04/19/19 21:01 Last Admin: 04/19/19 20:52 Dose: 125 mg Methylprednisolone Sodium Succinate (Solu-Medrol) 125 mg IVPUSH ONETIME ONE Stop: 04/20/19 17:46 Last Admin: 04/20/19 18:04 Dose: 125 mg Non-Formulary Medication (Magnesium Oxide [Magnesium Oxide]) 420 mg PO BEDTIME [facility] Oseltamivir Phosphate (Tamiflu) 30 mg PO BID [facility] Last Admin: 04/19/19 20:53 Dose: 30 mg Prednisone (Prednisone) 60 mg PO ONETIME STA Stop: 04/18/19 06:18 Last Admin: 04/18/19 06:43 Dose: 60 mg - Exam Quality Assessment: Reports: Supplemental Oxygen General: Reports: Alert, Oriented HEENT: Reports: Pupils Equal Neck: Reports: Supple Lungs: Reports: Decreased Breath Sounds, Wheezing. Denies: Rhonchi Cardiovascular: Reports: Regular Rate, Regular Rhythm GI/Abdominal Exam: Normal Bowel Sounds, Soft, Non-Tender, No Organomegaly, No Distention, No Abnormal Bruit, No Mass, Pelvis Stable Extremities: Normal Inspection, Normal Range of Motion, Non-Tender, No Pedal Edema, Normal Capillary Refill Psy/Mental Status: Reports: Alert, Normal Affect, Normal Mood
== END 2019-04-21 13:50 | disposition home or self-care (01) | DRG 193 ==
LOC: JD.ED 05:46 → JD.ICU 10:17 → JD.MS 04-20 18:46
PROVIDERS: ADMIT Internal Medicine; ATTEND Internal Medicine
DX: J10.00 Influenza due to other identified influenza virus with unspecified type of pneumonia (principal); I48.91 Unspecified atrial fibrillation; J96.01 Acute respiratory failure with hypoxia; N17.9 Acute kidney failure, unspecified; I10 Essential (primary) hypertension; J44.1 Chronic obstructive pulmonary disease with (acute) exacerbation; J44.0 Chronic obstructive pulmonary disease with (acute) lower respiratory infection; Q24.0 Dextrocardia; I11.0 Hypertensive heart disease with heart failure; G47.33 Obstructive sleep apnea (adult) (pediatric); I25.10 Atherosclerotic heart disease of native coronary artery without angina pectoris; I50.9 Heart failure, unspecified; I48.0 Paroxysmal atrial fibrillation; E53.8 Deficiency of other specified B group vitamins; Z98.42 Cataract extraction status, left eye; Z98.41 Cataract extraction status, right eye; Z95.5 Presence of coronary angioplasty implant and graft; Z96.643 Presence of artificial hip joint, bilateral; Z88.6 Allergy status to analgesic agent; H54.7 Unspecified visual loss; Z96.649 Presence of unspecified artificial hip joint; E78.00 Pure hypercholesterolemia, unspecified; K21.9 Gastro-esophageal reflux disease without esophagitis; N40.0 Benign prostatic hyperplasia without lower urinary tract symptoms; Z79.52 Long term (current) use of systemic steroids; E66.9 Obesity, unspecified; F43.10 Post-traumatic stress disorder, unspecified; F41.9 Anxiety disorder, unspecified; F32.9 Major depressive disorder, single episode, unspecified; Z90.49 Acquired absence of other specified parts of digestive tract; Z98.49 Cataract extraction status, unspecified eye; Z98.890 Other specified postprocedural states; Z95.818 Presence of other cardiac implants and grafts; Z87.891 Personal history of nicotine dependence; Z79.51 Long term (current) use of inhaled steroids; Z88.8 Allergy status to other drugs, medicaments and biological substances; Z88.5 Allergy status to narcotic agent; Z79.02 Long term (current) use of antithrombotics/antiplatelets; Z79.01 Long term (current) use of anticoagulants; Z79.899 Other long term (current) drug therapy; I25.2 Old myocardial infarction; Z99.81 Dependence on supplemental oxygen; Z68.31 Body mass index [BMI] 31.0-31.9, adult; Z91.018 Allergy to other foods
CPT/HCPCS: 36415; 36600; 71045; 80053; 82803; 83605; 83880; 84145; 84484; 85007; 85027; 85379; 87040 ×2; 87486; 87581; 87632; 87798; 93005; 94640; A9270; J3490 ×2; J7050; 71250; 71250-26; 80048; 83036; 83735; 84100; 85025; 86140; 93010; 94660; 94667; 94668; 94761; 96365; 96366; 96376; 99222; 99231; 99239; 99284; 99285-25; J2930; J7120; J7612-GY; J7620-GY

== ENCOUNTER 2019-06-06 14:18 | Emergency (ER) | payer MEDICARE, OTHER ==
[2019-06-06] MEDS ORDERED: Sodium Chloride 0.9% 10 ML Syringe FLUSH PRN (14:58)
[2019-06-06] MEDS ORDERED: HYDROmorphone 1 MG/ML Syringe IVPUSH ONE (14:59)
[2019-06-06] MEDS ORDERED: Sodium Chloride 0.9% 500 ML IV SCH (15:00)
--- NOTE | 2019-06-06 15:41 | CR ---
Chest: Portable view of the chest was obtained. Comparison: Prior chest x-ray of 05/05/19. Heart is enlarged. Cardiac apex appears on the right side. Slight atelectasis is seen within the midlungs on both sides. Thicker area of density is noted behind the right heart. Lungs otherwise are clear. Impression: 1. Atelectasis within both midlungs. 2. Thick density within the retrocardiac region within the right lung base most likely due to more prominent atelectasis. 3. Nothing acute is otherwise seen. Diagnostic code #3 Study was dictated in [place] [employer] Time
[2019-06-06] MEDS ORDERED: Sodium Chloride 0.9% 500 ML IV ONE (17:07)
[2019-06-06] MEDS ORDERED: HYDROmorphone 0.5 MG/0.5 ML Syringe IVPUSH ONE (17:08)
--- NOTE | 2019-06-06 17:30 | EDM.PDOC ---
ED HPI GENERAL MEDICAL PROBLEM - General Chief Complaint: Chest Pain Stated Complaint: [facility] Time Seen by Provider: 06/06/19 14:41 Source of Information: Reports: Patient History Limitations: Reports: No Limitations - History of Present Illness INITIAL COMMENTS - FREE TEXT/NARRATIVE: The patient presents by [facility] for diarrhea and chest pain. He said he woke up this morning and had about 9 episodes of diarrhea. He also had some burning upper chest pain. He then developed some chest pain. He took a few nitro but it only gave him a headache. He has no pain now. He was recently seen in [place] and diagnosed with a hemorrhage on his kidney. They stopped his blood thinners. He was on plavix and eliquis. He was on antibiotic until recently. Onset: Gradual Duration: Hour(s): Location: Reports: Head, Chest, Abdomen Quality: Reports: Burning Severity: Mild Improves with: Reports: None Worsens with: Reports: None Associated Symptoms: Reports: Chest Pain. Denies: Cough, Fever/Chills, Headaches, Nausea/Vomiting, Shortness of Breath Middle Chest Pain Score (Numeric/FACES): 7 - Related Data Allergies Allergy/AdvReac Type Severity Reaction Status Date / Time acetaminophen [From Tylenol] Allergy Airway Verified 04/18/19 11:42 Tightness aspirin Allergy Airway Verified 04/18/19 11:42 Tightness horseradish Allergy Airway Verified 04/18/19 11:42 Tightness ibuprofen Allergy Airway Verified 04/18/19 11:42 Tightness meperidine HCl [From Demerol] Allergy Airway Verified 04/18/19 11:42 Tightness morphine Allergy Itching Verified 04/18/19 11:42 oxycodone Allergy Rash Verified 04/18/19 11:42 sumatriptan [From Imitrex] Allergy Cannot Verified 04/18/19 11:42 Remember sumatriptan succinate Allergy Cannot Verified 04/18/19 11:42 [From Imitrex] Remember haloperidol [From Haldol] AdvReac Change Verified 04/18/19 11:42 Mental Status haloperidol lactate AdvReac Change Verified 04/18/19 11:42 [From Haldol] Mental Status ketorolac tromethamine AdvReac Change Verified 04/18/19 11:42 [From Toradol] Mental Status antihistamines Allergy Airway Uncoded 04/18/19 11:42 Tightness Home Meds: Home Meds Clopidogrel [Plavix] 75 mg PO DAILY 04/12/14 [History] Furosemide [Lasix] 40 mg PO DAILY 04/12/14 [History] PARoxetine HCl [Paxil] 20 mg PO DAILY 04/12/14 [History] Potassium Chloride 10 meq PO BID 04/12/14 [History] Tamsulosin HCl [Flomax] 0.4 mg PO BID 04/12/14 [History] Tiotropium [Spiriva HandiHaler] 1 cap INH DAILY 04/12/14 [History] Simvastatin [Zocor] 20 mg PO BEDTIME 02/03/15 [History] Apixaban [Eliquis] 5 mg PO BID 01/23/16 [History] Verapamil [Calan SR] 120 mg PO BID 01/23/16 [History] Albuterol Sulfate [Proair Respiclick] 2 puff INH Q4H PRN 10/18/16 [History] ClonazePAM [KlonoPIN] 1 mg PO BEDTIME 10/18/16 [History] Ipratropium [place] 1 spray NASBOTH BID 10/18/16 [History] Ranitidine [Zantac] 300 mg PO QAM 10/18/16 [History] Cholecalciferol (Vitamin D3) [Vitamin D] 1,000 unit PO BID 04/13/17 [History] Mirtazapine 30 mg PO BEDTIME 04/13/17 [History] Magnesium Oxide 420 mg PO BEDTIME 02/19/18 [History] ClonazePAM [KlonoPIN] 0.5 mg PO ACBREAKFAST 02/06/19 [History] Albuterol/Ipratropium [DuoNeb 3.0-0.5 MG/3 ML] 3 ml NEB Q6HR 04/18/19 [History] Budesonide/Formoterol [Symbicort 160-4.5 MCG] 2 puff INH DAILY 04/18/19 [History ] Oseltamivir [Tamiflu] 75 mg PO BID #5 cap 04/21/19 [Rx] guaiFENesin [Mucinex] 600 mg PO BID #20 tab.er 04/21/19 [Rx] Past Medical History HEENT History: Reports: Impaired Vision Other HEENT History: wears eyeglasses and upper/lower dentures Cardiovascular History: Reports: Afib, CAD, High Cholesterol, Hypertension, [place], Other (See Below) Other Cardiovascular History: stents in 2000, 5 [place] Respiratory History: Reports: COPD, Sleep Apnea Gastrointestinal History: Reports: GERD, PUD Genitourinary History: Reports: Acute Renal Failure, BPH Musculoskeletal History: Reports: None Neurological History: Reports: Headaches, Chronic Other Neuro History: patient reports minimal CARDENAS, will continue to monitor. Psychiatric History: Reports: Anxiety, Depression, PTSD Endocrine/Metabolic History: Reports: Obesity/BMI 30+, Other (See Below) Other Endocrine/Metabolic History: boardline diabetic- checks AM BS daily Hematologic History: Reports: B12 Deficiency - Infectious Disease History Infectious Disease History: Reports: Chicken Pox, Measles, Mumps - Past Surgical History Head Surgeries/Procedures: Reports: None HEENT Surgical History: Reports: Cataract Surgery, Naso-Sinus Surgery Cardiovascular Surgical History: Reports: Coronary Artery Stent GI Surgical History: Reports: Appendectomy, Colonoscopy, EGD Neurological Surgical History: Reports: None Musculoskeletal Surgical History: Reports: Hip Replacement Oncologic Surgical History: Reports: Other (See Below) Social & Family History - Family History Family Medical History: Noncontributory Oncologic: Reports: Leukemia Other Oncologic Family History: Brother - Tobacco Use Smoking Status *Q: Former Smoker Used Tobacco, but Quit: Yes Month/Year Tobacco Last Used: 2004 - Caffeine Use Caffeine Use: Reports: Soda Other Caffeine Use: 2/day - Recreational Drug Use Recreational Drug Use: No - Living Situation & Occupation Living situation: Reports: , with Spouse Occupation: Retired ED ROS GENERAL - Review of Systems Review Of Systems: See Below Constitutional: Reports: No Symptoms HEENT: Reports: No Symptoms Respiratory: Reports: No Symptoms Cardiovascular: Reports: Chest Pain Endocrine: Reports: No Symptoms GI/Abdominal: Reports: Abdominal Pain, Diarrhea : Reports: No Symptoms Musculoskeletal: Reports: No Symptoms Neurological: Reports: Headache ED EXAM, GENERAL - Physical Exam Exam: See Below Exam Limited By: No Limitations General Appearance: Alert, No Apparent Distress Ears: Normal External Exam Nose: Normal Inspection Head: Atraumatic, Normocephalic Neck: Normal Inspection Respiratory/Chest: No Respiratory Distress, Decreased Breath Sounds Cardiovascular: No Edema, No Rub, Irregularly Irregular GI/Abdominal: Normal Bowel Sounds, Soft, Non-Tender, No Organomegaly Back Exam: Normal Inspection Extremities: Normal Inspection Neurological: Alert, Oriented, No Motor/Sensory Deficits EKG INTERPRETATION EKG Date: 06/06/19 Time: 14:27 Rhythm: A-Fib Rate (Beats/Min): 77 [place]: Normal QRS: Normal ST-T: Normal QT: Normal Course - Vital Signs Last Recorded V/S: Last Vital Signs Temp 98.7 F 06/06/19 14:23 Pulse 83 06/06/19 14:23 Resp 18 06/06/19 14:23 BP 108/61 06/06/19 14:23 Pulse Ox 90 L 06/06/19 14:23 - Orders/Labs/Meds Orders: Active Orders 24 hr Category Date Time Status Cardiac Monitoring [RC] . DIRECTED Care 06/06/19 14:58 Active EKG 12 Lead [EKG Documentation Completion] [RC] STAT Care 06/06/19 14:41 Active Oxygen Therapy [RC] PRN Care 06/06/19 14:58 Active Peripheral IV Care [RC] . DIRECTED Care 06/06/19 14:58 Active Sodium Chloride 0.9% [Normal Saline] 500 ml Med 06/06/19 15:00 Active IV .BOLUS Sodium Chloride 0.9% [Normal Saline] 500 ml Med 06/06/19 17:07 Active IV .BOLUS Sodium Chloride 0.9% [Saline Flush] Med 06/06/19 14:58 Active 10 ml FLUSH ASDIRECTED PRN Peripheral IV Insertion Adult [OM.PC] Stat Oth 06/06/19 14:58 Ordered Medication Orders Sodium Chloride (Normal Saline) 500 mls @ 1,000 mls/hr IV .BOLUS SANTOS Last Admin: 06/06/19 15:09 Dose: 1,000 mls/hr Sodium Chloride (Normal Saline) 500 mls @ 1,000 mls/hr IV .BOLUS ONE Stop: 06/06/19 17:36 Last Admin: 06/06/19 17:13 Dose: 1,000 mls/hr Sodium Chloride (Saline Flush) 10 ml FLUSH ASDIRECTED PRN PRN Reason: Keep Vein Open Last Admin: 06/06/19 15:09 Dose: 10 ml Labs: Laboratory Tests 06/06/19 06/06/19 Range/Units 15:20 15:20 WBC 9.65 H (4.23-9.07) K/mm3 RBC 3.30 L (4.63-6.08) M/mm3 Hgb 10.5 L D (13.7-17.5) gm/dl Hct 34.0 L (40.1-51.0) % MCV 103.0 H D (79.0-92.2) fl MCH 31.8 (25.7-32.2) pg MCHC 30.9 L (32.2-35.5) g/dl RDW Std Deviation 52.3 H (35.1-43.9) fL Plt Count 274 D (163-337) K/mm3 MPV 8.6 L (9.4-12.3) fl Neut % (Auto) 81.3 H (34.0-67.9) % Lymph % (Auto) 6.2 L (21.8-53.1) % [place] % (Auto) 7.0 (5.3-12.2) % Eos % (Auto) 4.8 (0.8-7.0) Baso % (Auto) 0.1 (0.1-1.2) % Neut # (Auto) 7.84 H (1.78-5.38) K/mm3 Lymph # (Auto) 0.60 L (1.32-3.57) K/mm3 [place] # (Auto) 0.68 (0.30-0.82) K/mm3 Eos # (Auto) 0.46 (0.04-0.54) K/mm3 Baso # (Auto) 0.01 (0.01-0.08) K/mm3 Manual Slide Review Abnormal smear Sodium 137 (136-145) mEq/L Potassium 3.2 L (3.5-5.1) mEq/L Chloride 102 (98-107) mEq/L Carbon Dioxide 30 (21-32) mEq/L Anion Gap 8.2 (5-15) BUN 23 H (7-18) mg/dL Creatinine 1.5 H (0.7-1.3) mg/dL Est Cr Clr Drug Dosing 41.35 mL/min Estimated GFR (MDRD) 46 (>60) mL/min BUN/Creatinine Ratio 15.3 (14-18) Glucose 97 (80-115) mg/dL Calcium 7.7 L (8.5-10.1) mg/dL Total Bilirubin 0.6 (0.2-1.0) mg/dL AST 16 (15-37) U/L ALT 21 (16-63) U/L Alkaline Phosphatase 110 (46-116) U/L Troponin I < 0.017 (0.00-0.056) ng/mL Total Protein 5.7 L (6.4-8.2) g/dl Albumin 2.3 L (3.4-5.0) g/dl Globulin 3.4 gm/dL Albumin/Globulin Ratio 0.7 L (1-2) Meds: Medications Generic Name Dose Route Start Last Admin Trade Name Freq PRN Reason Stop Dose Admin Sodium Chloride 500 mls @ 1,000 mls/hr 06/06/19 15:00 06/06/19 15:09 Normal Saline IV 1,000 mls/hr .BOLUS SANTOS Administration Sodium Chloride 500 mls @ 1,000 mls/hr 06/06/19 17:07 06/06/19 17:13 Normal Saline IV 06/06/19 17:36 1,000 mls/hr .BOLUS ONE Administration Sodium Chloride 10 ml 06/06/19 14:58 06/06/19 15:09 Saline Flush FLUSH 10 ml ASDIRECTED PRN Administration Keep Vein Open Discontinued Medications Generic Name Dose Route Start Last Admin Trade Name Freq PRN Reason Stop Dose Admin Hydromorphone HCl 1 mg 06/06/19 14:59 06/06/19 15:09 Dilaudid IVPUSH 06/06/19 15:00 1 mg ONETIME ONE Administration Hydromorphone HCl 0.5 mg 06/06/19 17:08 06/06/19 17:14 Dilaudid IVPUSH 06/06/19 17:09 0.5 mg ONETIME ONE Administration - Re-Assessments/Exams Free Text/Narrative Re-Assessment/Exam: 06/06/19 17:31 I ordered oxygen, IV NS 1L bolus, EKG, CXR and dilaudid. 06/06/19 17:32 His EKG shows atrial fibrillation with no acute changes. His CXR shows atelectasis within both midlungs. Thick density within the retrocardiac region within the right lung base most likely due to more prominent atelectasis. Nothing acute is otherwise seen. His WBC was elevated at 9.65. His Hgb was low at 10.5. His K was low at 32. His creatinine was elevated at 1.5. The last time he was here it was 1.5. His troponin is negative. He feels better after the fluid bolus. I will give him 500mls more and another dose of dilaudid for his headache. Departure - Departure Time of Disposition: 17:40 Disposition: Home, Self-Care 01 Condition: Good Clinical Impression: Atypical chest pain Diarrhea Qualifiers: Diarrhea type: unspecified type Qualified Code(s): R19.7 - Diarrhea, unspecified Headache Qualifiers: Headache type: unspecified Headache chronicity pattern: acute headache Intractability: not intractable Qualified Code(s): R51 - Headache Referrals: Ana Benjamin MD [Primary Care Provider] - 1 Week Additional Instructions: Go home and rest. If you have any more diarrhea get a sample and bring it back in to be tested. Please return if you are worse. Sepsis Event Note - Evaluation Sepsis Screening Result: No Definite Risk - Focused Exam Vital Signs: Vital Signs Temp Pulse Resp BP Pulse Ox 06/06/19 14:23 98.7 F 83 18 108/61 90 L Date Exam was Performed: 06/06/19 Time Exam was Performed: 17:25 - My Orders Last 24 Hours: My Active Orders 06/06/19 14:41 EKG 12 Lead [EKG Documentation Completion] [RC] STAT 06/06/19 14:58 Cardiac Monitoring [RC] . DIRECTED Oxygen Therapy [RC] PRN Peripheral IV Care [RC] . DIRECTED Sodium Chloride 0.9% [Saline Flush] 10 ml FLUSH ASDIRECTED PRN Peripheral IV Insertion Adult [OM.PC] Stat 06/06/19 15:00 Sodium Chloride 0.9% [Normal Saline] 500 ml IV .BOLUS 06/06/19 17:07 Sodium Chloride 0.9% [Normal Saline] 500 ml IV .BOLUS - Assessment/Plan Last 24 Hours: My Active Orders 06/06/19 14:41 EKG 12 Lead [EKG Documentation Completion] [RC] STAT 06/06/19 14:58 Cardiac Monitoring [RC] . DIRECTED Oxygen Therapy [RC] PRN Peripheral IV Care [RC] . DIRECTED Sodium Chloride 0.9% [Saline Flush] 10 ml FLUSH ASDIRECTED PRN Peripheral IV Insertion Adult [OM.PC] Stat 06/06/19 15:00 Sodium Chloride 0.9% [Normal Saline] 500 ml IV .BOLUS 06/06/19 17:07 Sodium Chloride 0.9% [Normal Saline] 500 ml IV .BOLUS
[2019-06-06 18:07] VITALS: BP 110/78; PULSE 80
== END 2019-06-06 18:00 | disposition home or self-care (01) ==
LOC: JD.ED 14:18
DX: R07.89 Other chest pain (principal); R51 Headache; I10 Essential (primary) hypertension; E78.00 Pure hypercholesterolemia, unspecified; J44.9 Chronic obstructive pulmonary disease, unspecified; I25.2 Old myocardial infarction; Z79.899 Other long term (current) drug therapy; Z87.891 Personal history of nicotine dependence; Z88.8 Allergy status to other drugs, medicaments and biological substances; Z88.6 Allergy status to analgesic agent; Z88.2 Allergy status to sulfonamides
CPT/HCPCS: 36415; 71045; 80053; 84484; 85025; 93005; 96374; 96376; 99285; J1170; J7030; 93010; 99284

== ENCOUNTER 2019-07-22 08:38 | Emergency (ER) | payer OTHER, MEDICARE ==
[2019-07-22 09:00] VITALS: BP 122/92; PULSE 108
--- NOTE | 2019-07-22 09:16 | EDM.PDOC ---
ED HPI GENERAL MEDICAL PROBLEM - General Chief Complaint: Respiratory Problem Stated Complaint: DIFFICULTY BREATHING/COUGH Time Seen by Provider: 07/22/19 09:12 Source of Information: Reports: Patient, RN Notes Reviewed - History of Present Illness INITIAL COMMENTS - FREE TEXT/NARRATIVE: 68 yr old male cones in with cough, dyspnea worsening over the past 2 to 3 weeks. He does have quite advanced COPD and also has chronic heart disease. He is chronically short of breath but more dyspneic with ambulation the past 1 to 2 wks. He is concerned about possible pneumonia which he has had frequently in the past. He states he has not been away from home for about the last 30 days so covid risk/exposure very low. He was does work at the [employer] but she has not been recently ill. No recent fever or chills. Cough mostly dry, occasionally prod. of mostly clear sputum. - Related Data Allergies Allergy/AdvReac Type Severity Reaction Status Date / Time acetaminophen [From Tylenol] Allergy Airway Verified 07/22/19 09:00 Tightness aspirin Allergy Airway Verified 07/22/19 09:00 Tightness horseradish Allergy Airway Verified 07/22/19 09:00 Tightness ibuprofen Allergy Airway Verified 07/22/19 09:00 Tightness meperidine HCl [From Demerol] Allergy Airway Verified 07/22/19 09:00 Tightness morphine Allergy Itching Verified 07/22/19 09:00 oxycodone Allergy Rash Verified 07/22/19 09:00 sumatriptan [From Imitrex] Allergy Cannot Verified 07/22/19 09:00 Remember sumatriptan succinate Allergy Cannot Verified 07/22/19 09:00 [From Imitrex] Remember haloperidol [From Haldol] AdvReac Change Verified 07/22/19 09:00 Mental Status haloperidol lactate AdvReac Change Verified 07/22/19 09:00 [From Haldol] Mental Status ketorolac tromethamine AdvReac Change Verified 07/22/19 09:00 [From Toradol] Mental Status antihistamines Allergy Airway Uncoded 07/22/19 09:00 Tightness Home Meds: Home Meds Clopidogrel [Plavix] 75 mg PO DAILY 04/12/14 [History] Furosemide [Lasix] 40 mg PO DAILY 04/12/14 [History] PARoxetine HCl [Paxil] 20 mg PO DAILY 04/12/14 [History] Potassium Chloride 10 meq PO BID 04/12/14 [History] Tamsulosin HCl [Flomax] 0.4 mg PO DAILY 04/12/14 [History] Tiotropium [Spiriva HandiHaler] 1 cap INH DAILY 04/12/14 [History] Simvastatin [Zocor] 20 mg PO BEDTIME 02/03/15 [History] Apixaban [Eliquis] 5 mg PO BID 01/23/16 [History] Albuterol Sulfate [Proair Respiclick] 2 puff INH Q4H PRN 10/18/16 [History] ClonazePAM [KlonoPIN] 1 mg PO BEDTIME 10/18/16 [History] Ipratropium [place] 1 spray NASBOTH BID 10/18/16 [History] Cholecalciferol (Vitamin D3) [Vitamin D] 1,000 unit PO BID 04/13/17 [History] Mirtazapine 30 mg PO BEDTIME 04/13/17 [History] Magnesium Oxide 420 mg PO BEDTIME 02/19/18 [History] ClonazePAM [KlonoPIN] 0.5 mg PO ACBREAKFAST 02/06/19 [History] Albuterol/Ipratropium [DuoNeb 3.0-0.5 MG/3 ML] 3 ml NEB Q6HR 04/18/19 [History] Budesonide/Formoterol [Symbicort 160-4.5 MCG] 2 puff INH DAILY 04/18/19 [History ] guaiFENesin [Mucinex] 600 mg PO BID #20 tab.er 04/21/19 [Rx] Doxycycline [Vibramycin] 100 mg PO DAILY #14 tab 07/22/19 [Rx] Metoprolol Succinate 25 mg PO BID 07/22/19 [History] Omeprazole Magnesium [Prilosec Otc] 20 mg PO DAILY 07/22/19 [History] Past Medical History HEENT History: Reports: Impaired Vision Other HEENT History: wears eyeglasses and upper/lower dentures Cardiovascular History: Reports: Afib, CAD, High Cholesterol, Hypertension, [place], Other (See Below) Other Cardiovascular History: stents in 1999, 5 [place] Respiratory History: Reports: COPD, Sleep Apnea Gastrointestinal History: Reports: GERD, PUD Genitourinary History: Reports: Acute Renal Failure, BPH Musculoskeletal History: Reports: None Neurological History: Reports: Headaches, Chronic Other Neuro History: patient reports minimal CARDENAS, will continue to monitor. Psychiatric History: Reports: Anxiety, Depression, PTSD Endocrine/Metabolic History: Reports: Obesity/BMI 30+, Other (See Below) Other Endocrine/Metabolic History: boardline diabetic- checks AM BS daily Hematologic History: Reports: B12 Deficiency - Infectious Disease History Infectious Disease History: Reports: Chicken Pox, Measles, Mumps - Past Surgical History Head Surgeries/Procedures: Reports: None HEENT Surgical History: Reports: Cataract Surgery, Naso-Sinus Surgery Cardiovascular Surgical History: Reports: Coronary Artery Stent GI Surgical History: Reports: Appendectomy, Colonoscopy, EGD Neurological Surgical History: Reports: None Musculoskeletal Surgical History: Reports: Hip Replacement Oncologic Surgical History: Reports: Other (See Below) Social & Family History - Family History Family Medical History: Noncontributory Oncologic: Reports: Leukemia Other Oncologic Family History: Brother - Tobacco Use Smoking Status *Q: Former Smoker Used Tobacco, but Quit: Yes Month/Year Tobacco Last Used: 10 years ago - Caffeine Use Caffeine Use: Reports: Soda Other Caffeine Use: 2/day - Living Situation & Occupation Living situation: Reports: , with Spouse Occupation: Retired ED ROS GENERAL - Review of Systems Review Of Systems: See Below Constitutional: Denies: Fever, Chills, Diaphoresis HEENT: Denies: Rhinitis, Sinus Problem, Throat Pain Respiratory: Reports: Shortness of Breath, Wheezing, Cough, Sputum. Denies: Hemoptysis Cardiovascular: Denies: Chest Pain GI/Abdominal: Denies: Abdominal Pain, Nausea, Vomiting Musculoskeletal: Denies: Shoulder Pain, Arm Pain Skin: Reports: No Symptoms Neurological: Reports: No Symptoms ED EXAM, GENERAL - Physical Exam Exam: See Below General Appearance: Alert, Mild Distress Eye Exam: Bilateral Eye: PERRL Throat/Mouth: Normal Inspection Head: Atraumatic. No: Facial Swelling Neck: Supple Respiratory/Chest: Respiratory Distress (mild tachypnea). No: Rales, Rhonchi, Wheezing Cardiovascular: Tachycardia GI/Abdominal: Non-Tender Extremities: No: Pedal Edema, Leg Pain, Increased Warmth, Redness Neurological: Oriented, No Motor/Sensory Deficits Skin Exam: Warm, Dry, Normal Color Course - Vital Signs Last Recorded V/S: Last Vital Signs Temp 97.3 F 07/22/19 08:55 Pulse 108 H 07/22/19 08:55 Resp 20 07/22/19 08:55 BP 122/92 H 07/22/19 08:55 Pulse Ox 92 L 07/22/19 08:55 - Orders/Labs/Meds Orders: Active Orders 24 hr Category Date Time Status Oxygen Therapy [RC] ASDIRECTED Care 07/22/19 09:35 Active Labs: Laboratory Tests 07/22/19 07/22/19 07/22/19 Range/Units 10:05 10:05 10:05 WBC 9.82 H (4.23-9.07) K/mm3 RBC 4.36 L (4.63-6.08) M/mm3 Hgb 13.9 D (13.7-17.5) gm/dl Hct 43.2 (40.1-51.0) % MCV 99.1 H (79.0-92.2) fl MCH 31.9 (25.7-32.2) pg MCHC 32.2 (32.2-35.5) g/dl RDW Std Deviation 50.8 H (35.1-43.9) fL Plt Count 240 (163-337) K/mm3 MPV 9.2 L (9.4-12.3) fl Neut % (Auto) 69.0 H (34.0-67.9) % Lymph % (Auto) 14.5 L (21.8-53.1) % [place] % (Auto) 8.7 (5.3-12.2) % Eos % (Auto) 6.9 (0.8-7.0) Baso % (Auto) 0.7 (0.1-1.2) % Neut # (Auto) 6.78 H (1.78-5.38) K/mm3 Lymph # (Auto) 1.42 (1.32-3.57) K/mm3 [place] # (Auto) 0.85 H (0.30-0.82) K/mm3 Eos # (Auto) 0.68 H (0.04-0.54) K/mm3 Baso # (Auto) 0.07 (0.01-0.08) K/mm3 Sodium 142 (136-145) mEq/L Potassium 3.6 (3.5-5.1) mEq/L Chloride 104 (98-107) mEq/L Carbon Dioxide 29 (21-32) mEq/L Anion Gap 12.6 (5-15) BUN 15 (7-18) mg/dL Creatinine 1.3 (0.7-1.3) mg/dL Est Cr Clr Drug Dosing 47.71 mL/min Estimated GFR (MDRD) 55 (>60) mL/min BUN/Creatinine Ratio 11.5 L (14-18) Glucose 159 H (80-115) mg/dL Calcium 9.3 D (8.5-10.1) mg/dL Ferritin (26-388) ng/ml Total Bilirubin 0.5 (0.2-1.0) mg/dL AST 14 L (15-37) U/L ALT 16 (16-63) U/L Alkaline Phosphatase 141 H (46-116) U/L Lactate Dehydrogenase 143 (85-227) U/L C-Reactive Protein 2.0 H* (<1.0) mg/dL NT-Pro-B Natriuret Pep (0-125) pg/mL Total Protein 7.0 (6.4-8.2) g/dl Albumin 3.1 L (3.4-5.0) g/dl Globulin 3.9 gm/dL Albumin/Globulin Ratio 0.8 L (1-2) 07/22/19 07/22/19 Range/Units 10:05 10:05 WBC (4.23-9.07) K/mm3 RBC (4.63-6.08) M/mm3 Hgb (13.7-17.5) gm/dl Hct (40.1-51.0) % MCV (79.0-92.2) fl MCH (25.7-32.2) pg MCHC (32.2-35.5) g/dl RDW Std Deviation (35.1-43.9) fL Plt Count (163-337) K/mm3 MPV (9.4-12.3) fl Neut % (Auto) (34.0-67.9) % Lymph % (Auto) (21.8-53.1) % [place] % (Auto) (5.3-12.2) % Eos % (Auto) (0.8-7.0) Baso % (Auto) (0.1-1.2) % Neut # (Auto) (1.78-5.38) K/mm3 Lymph # (Auto) (1.32-3.57) K/mm3 [place] # (Auto) (0.30-0.82) K/mm3 Eos # (Auto) (0.04-0.54) K/mm3 Baso # (Auto) (0.01-0.08) K/mm3 Sodium (136-145) mEq/L Potassium (3.5-5.1) mEq/L Chloride (98-107) mEq/L Carbon Dioxide (21-32) mEq/L Anion Gap (5-15) BUN (7-18) mg/dL Creatinine (0.7-1.3) mg/dL Est Cr Clr Drug Dosing mL/min Estimated GFR (MDRD) (>60) mL/min BUN/Creatinine Ratio (14-18) Glucose (80-115) mg/dL Calcium (8.5-10.1) mg/dL Ferritin 58 (26-388) ng/ml Total Bilirubin (0.2-1.0) mg/dL AST (15-37) U/L ALT (16-63) U/L Alkaline Phosphatase (46-116) U/L Lactate Dehydrogenase (85-227) U/L C-Reactive Protein (<1.0) mg/dL NT-Pro-B Natriuret Pep 2011 H (0-125) pg/mL Total Protein (6.4-8.2) g/dl Albumin (3.4-5.0) g/dl Globulin gm/dL Albumin/Globulin Ratio (1-2) - Re-Assessments/Exams Free Text/Narrative Re-Assessment/Exam: 07/22/19 15:39 CXR is good, labs all relatively nl, discharge instr. as documented. Departure - Departure Time of Disposition: 11:28 Disposition: Home, Self-Care 01 Condition: Fair Clinical Impression: Bronchitis, COPD exacerbation - Discharge Information Prescriptions: Doxycycline [Vibramycin] 100 mg PO DAILY #14 tab Instructions: Chronic Obstructive Pulmonary Disease Exacerbation Referrals: Ana Benjaimn MD [Primary Care Provider] - Forms: ED Department Discharge Additional Instructions: Doxycycline 100 mg twice daily for 1 week or until gone. Prescription has been sent electronic to the [facility]. Continue other medications as prescribed. Continue to isolate for your safety. Return to ED as needed. Sepsis Event Note - Evaluation Sepsis Screening Result: No Definite Risk - Focused Exam Vital Signs: Vital Signs Temp Pulse Resp BP Pulse Ox 07/22/19 08:55 97.3 F 108 H 20 122/92 H 92 L Date Exam was Performed: 07/22/19 Time Exam was Performed: 15:39 - My Orders Last 24 Hours: My Active Orders 07/22/19 09:35 Oxygen Therapy [RC] ASDIRECTED - Assessment/Plan Last 24 Hours: My Active Orders 07/22/19 09:35 Oxygen Therapy [RC] ASDIRECTED
--- NOTE | 2019-07-22 10:33 | CR ---
Chest: Portable view of the chest was obtained. Comparison: Previous chest x-ray of 07/22/19. Enlarged heart is seen. Findings are stable from prior exam. Slight area of atelectasis within the right midlung is seen. Minimal atelectasis with the left mid lung. Lungs otherwise are clear. Bony structures are grossly intact. Impression: 1. Cardiomegaly with mild bilateral atelectasis. 2. Nothing acute is otherwise seen on portable chest x-ray. Diagnostic code #2 This report was dictated in MDT
== END 2019-07-22 11:45 | disposition home or self-care (01) ==
LOC: JD.ED 08:38
DX: J44.1 Chronic obstructive pulmonary disease with (acute) exacerbation (principal); I48.91 Unspecified atrial fibrillation; I25.10 Atherosclerotic heart disease of native coronary artery without angina pectoris; E78.00 Pure hypercholesterolemia, unspecified; I10 Essential (primary) hypertension; I25.2 Old myocardial infarction; K21.9 Gastro-esophageal reflux disease without esophagitis; F41.9 Anxiety disorder, unspecified; F32.9 Major depressive disorder, single episode, unspecified; E66.9 Obesity, unspecified; Z87.891 Personal history of nicotine dependence; Z88.8 Allergy status to other drugs, medicaments and biological substances; Z91.013 Allergy to seafood; Z91.018 Allergy to other foods; Z88.6 Allergy status to analgesic agent; Z88.5 Allergy status to narcotic agent; Z79.02 Long term (current) use of antithrombotics/antiplatelets; Z79.01 Long term (current) use of anticoagulants; Z79.899 Other long term (current) drug therapy
CPT/HCPCS: 36415; 71045; 71045-26; 80053; 82728; 83615; 83880; 85025; 86140; 99283; 99285-25

== ENCOUNTER 2019-08-19 13:55 | Observation (INO) | payer MEDICARE, OTHER ==
[2019-08-19] MEDS ORDERED: Sodium Chloride 0.9% 10 ML Syringe FLUSH PRN (13:58)
[2019-08-19] MEDS ORDERED: HYDROmorphone 1 MG/ML Syringe IVPUSH ONE (13:59)
--- NOTE | 2019-08-19 14:12 | CR ---
Chest: Portable view of the chest was obtained. Comparison: Prior chest x-ray of 07/22/19. Heart is enlarged with right heart prominence. Findings are stable from previous exam. Lungs are clear with no acute parenchymal change. Bony structures are grossly intact. Impression: 1. Stable findings as noted above. 2. Nothing acute is appreciated. Diagnostic code #2 This report was dictated in MDT
[2019-08-19] MEDS ORDERED: Albuterol/Ipratropium 3.0-0.5 MG/3 ML Neb Soln NEB ONE (14:28)
[2019-08-19] MEDS ORDERED: methylPREDNISolone Sodium Succinate 125 MG/2 ML SDV IVPUSH ONE (14:28)
--- NOTE | 2019-08-19 14:37 | EDM.PDOC ---
ED HPI GENERAL MEDICAL PROBLEM - General Chief Complaint: Respiratory Problem Stated Complaint: [facility] Time Seen by Provider: 08/19/19 13:58 Source of Information: Reports: Patient, EMS History Limitations: Reports: No Limitations - History of Present Illness INITIAL COMMENTS - FREE TEXT/NARRATIVE: The patient presents by [facility] for shortness of breath, right shoulder pain and chest pain. This all started less then an hour before arrival. He was getting his boat ready to go to the [place]. He came into the garage and passed out. After that he had shortness of breath, right shoulder pain and chest pain. He has bad COPD and also has a cough. He denies fever. He has no swelling or pain in his legs. Onset: Sudden Duration: Hour(s): Location: Reports: Chest, Upper Extremity, Right (shoulder) Quality: Reports: Sharp Severity: Moderate Improves with: Reports: None Worsens with: Reports: None Associated Symptoms: Reports: Chest Pain, Cough, Shortness of Breath. Denies: Fever/Chills, Headaches, Nausea/Vomiting Right Shoulder Pain Score (Numeric/FACES): 10 - Related Data Allergies Allergy/AdvReac Type Severity Reaction Status Date / Time acetaminophen [From Tylenol] Allergy Airway Verified 08/19/19 14:06 Tightness aspirin Allergy Airway Verified 08/19/19 14:06 Tightness horseradish Allergy Airway Verified 08/19/19 14:06 Tightness ibuprofen Allergy Airway Verified 08/19/19 14:06 Tightness meperidine HCl [From Demerol] Allergy Airway Verified 08/19/19 14:06 Tightness morphine Allergy Itching Verified 08/19/19 14:06 oxycodone Allergy Rash Verified 08/19/19 14:06 sumatriptan [From Imitrex] Allergy Cannot Verified 08/19/19 14:06 Remember sumatriptan succinate Allergy Cannot Verified 08/19/19 14:06 [From Imitrex] Remember haloperidol [From Haldol] AdvReac Change Verified 08/19/19 14:06 Mental Status haloperidol lactate AdvReac Change Verified 08/19/19 14:06 [From Haldol] Mental Status ketorolac tromethamine AdvReac Change Verified 08/19/19 14:06 [From Toradol] Mental Status antihistamines Allergy Airway Uncoded 07/22/19 09:00 Tightness Home Meds: Home Meds Clopidogrel [Plavix] 75 mg PO DAILY 04/12/14 [History] Furosemide [Lasix] 40 mg PO DAILY 04/12/14 [History] PARoxetine HCl [Paxil] 20 mg PO DAILY 04/12/14 [History] Potassium Chloride 10 meq PO BID 04/12/14 [History] Tamsulosin HCl [Flomax] 0.4 mg PO DAILY 04/12/14 [History] Tiotropium [Spiriva HandiHaler] 1 cap INH DAILY 04/12/14 [History] Simvastatin [Zocor] 20 mg PO BEDTIME 02/03/15 [History] Apixaban [Eliquis] 5 mg PO BID 01/23/16 [History] Albuterol Sulfate [Proair Respiclick] 2 puff INH Q4H PRN 10/18/16 [History] ClonazePAM [KlonoPIN] 1 mg PO BEDTIME 10/18/16 [History] Ipratropium [place] 1 spray NASBOTH BID 10/18/16 [History] Cholecalciferol (Vitamin D3) [Vitamin D] 1,000 unit PO BID 04/13/17 [History] Mirtazapine 30 mg PO BEDTIME 04/13/17 [History] Magnesium Oxide 420 mg PO BEDTIME 02/19/18 [History] ClonazePAM [KlonoPIN] 0.5 mg PO ACBREAKFAST 02/06/19 [History] Albuterol/Ipratropium [DuoNeb 3.0-0.5 MG/3 ML] 3 ml NEB Q6HR 04/18/19 [History] Budesonide/Formoterol [Symbicort 160-4.5 MCG] 2 puff INH DAILY 04/18/19 [History ] guaiFENesin [Mucinex] 600 mg PO BID #20 tab.er 04/21/19 [Rx] Doxycycline [Vibramycin] 100 mg PO DAILY #14 tab 07/22/19 [Rx] Metoprolol Succinate 25 mg PO BID 07/22/19 [History] Omeprazole Magnesium [Prilosec Otc] 20 mg PO DAILY 07/22/19 [History] Past Medical History HEENT History: Reports: Impaired Vision Other HEENT History: wears eyeglasses and upper/lower dentures Cardiovascular History: Reports: Afib, CAD, High Cholesterol, Hypertension, ID, Other (See Below) Other Cardiovascular History: stents in 2000, 5 ID Respiratory History: Reports: COPD, Sleep Apnea Gastrointestinal History: Reports: GERD, PUD Genitourinary History: Reports: Acute Renal Failure, BPH Musculoskeletal History: Reports: None Neurological History: Reports: Headaches, Chronic Other Neuro History: patient reports minimal CARDENAS, will continue to monitor. Psychiatric History: Reports: Anxiety, Depression, PTSD Endocrine/Metabolic History: Reports: Obesity/BMI 30+, Other (See Below) Other Endocrine/Metabolic History: boardline diabetic- checks AM BS daily Hematologic History: Reports: B12 Deficiency - Infectious Disease History Infectious Disease History: Reports: Chicken Pox, Measles, Mumps - Past Surgical History Head Surgeries/Procedures: Reports: None HEENT Surgical History: Reports: Cataract Surgery, Naso-Sinus Surgery Cardiovascular Surgical History: Reports: Coronary Artery Stent GI Surgical History: Reports: Appendectomy, Colonoscopy, EGD Neurological Surgical History: Reports: None Musculoskeletal Surgical History: Reports: Hip Replacement Oncologic Surgical History: Reports: Other (See Below) Social & Family History - Family History Family Medical History: Noncontributory Oncologic: Reports: Leukemia Other Oncologic Family History: Brother - Caffeine Use Caffeine Use: Reports: Soda Other Caffeine Use: 2/day - Living Situation & Occupation Living situation: Reports: , with Spouse Occupation: Retired ED ROS GENERAL - Review of Systems Review Of Systems: See Below Constitutional: Reports: No Symptoms HEENT: Reports: No Symptoms Respiratory: Reports: Shortness of Breath, Cough Cardiovascular: Reports: Chest Pain Endocrine: Reports: No Symptoms GI/Abdominal: Reports: No Symptoms : Reports: No Symptoms Musculoskeletal: Reports: No Symptoms ED EXAM, GENERAL - Physical Exam Exam: See Below Exam Limited By: No Limitations General Appearance: Alert, No Apparent Distress Ears: Normal External Exam Nose: Normal Inspection Head: Atraumatic, Normocephalic Neck: Normal Inspection Respiratory/Chest: Decreased Breath Sounds, Wheezing Cardiovascular: No Edema, No Murmur, Irregularly Irregular GI/Abdominal: Soft, Non-Tender, No Organomegaly, No Mass Back Exam: Normal Inspection Extremities: Normal Inspection EKG INTERPRETATION EKG Date: 08/19/19 Time: 13:57 Rhythm: A-Fib Rate (Beats/Min): 83 [place]: Normal QRS: Normal ST-T: Normal QT: Normal Course - Vital Signs Last Recorded V/S: Last Vital Signs Temp 97.9 F 08/19/19 14:06 Pulse 80 08/19/19 14:06 Resp 24 H 08/19/19 14:06 BP 155/117 H 08/19/19 14:06 Pulse Ox 92 L 08/19/19 14:29 - Orders/Labs/Meds Orders: Active Orders 24 hr Category Date Time Status Cardiac Monitoring [RC] . DIRECTED Care 08/19/19 13:58 Active EKG Documentation Completion [RC] STAT Care 08/19/19 13:59 Active Oxygen Therapy [RC] PRN Care 08/19/19 13:58 Active Peripheral IV Care [RC] . DIRECTED Care 08/19/19 13:59 Active RT Aerosol Therapy [RC] ASDIRECTED Care 08/19/19 14:29 Active Sodium Chloride 0.9% [Saline Flush] Med 08/19/19 13:58 Active 10 ml FLUSH ASDIRECTED PRN BiPAP [RESPCARE] Routine Oth 08/19/19 14:01 Active Peripheral IV Insertion Adult [OM.PC] Stat Oth 08/19/19 13:58 Ordered Medication Orders Sodium Chloride (Saline Flush) 10 ml FLUSH ASDIRECTED PRN PRN Reason: Keep Vein Open Last Admin: 08/19/19 14:01 Dose: 10 ml Labs: Laboratory Tests 08/19/19 08/19/19 08/19/19 Range/Units 13:59 13:59 13:59 WBC 10.63 H (4.23-9.07) K/mm3 RBC 3.98 L (4.63-6.08) M/mm3 Hgb 12.6 L (13.7-17.5) gm/dl Hct 40.6 (40.1-51.0) % MCV 102.0 H (79.0-92.2) fl MCH 31.7 (25.7-32.2) pg MCHC 31.0 L (32.2-35.5) g/dl RDW Std Deviation 57.1 H (35.1-43.9) fL Plt Count 159 L D (163-337) K/mm3 MPV 9.9 (9.4-12.3) fl Neut % (Auto) 78.5 H (34.0-67.9) % Lymph % (Auto) 8.9 L (21.8-53.1) % [place] % (Auto) 8.7 (5.3-12.2) % Eos % (Auto) 3.7 (0.8-7.0) Baso % (Auto) 0.1 (0.1-1.2) % Neut # (Auto) 8.34 H (1.78-5.38) K/mm3 Lymph # (Auto) 0.95 L (1.32-3.57) K/mm3 [place] # (Auto) 0.93 H (0.30-0.82) K/mm3 Eos # (Auto) 0.39 (0.04-0.54) K/mm3 Baso # (Auto) 0.01 (0.01-0.08) K/mm3 Manual Slide Review Abnormal smear Sodium 138 (136-145) mEq/L Potassium 4.3 (3.5-5.1) mEq/L Chloride 100 (98-107) mEq/L Carbon Dioxide 32 (21-32) mEq/L Anion Gap 10.3 (5-15) BUN 20 H (7-18) mg/dL Creatinine 1.5 H (0.7-1.3) mg/dL Est Cr Clr Drug Dosing TNP Estimated GFR (MDRD) 46 (>60) mL/min BUN/Creatinine Ratio 13.3 L (14-18) Glucose 142 H (80-115) mg/dL Calcium 8.7 (8.5-10.1) mg/dL Total Bilirubin 1.0 (0.2-1.0) mg/dL AST 15 (15-37) U/L ALT 21 (16-63) U/L Alkaline Phosphatase 122 H (46-116) U/L Troponin I < 0.017 (0.00-0.056) ng/mL C-Reactive Protein 7.9 H* (<1.0) mg/dL NT-Pro-B Natriuret Pep 798 H (0-125) pg/mL Total Protein 6.9 (6.4-8.2) g/dl Albumin 3.1 L (3.4-5.0) g/dl Globulin 3.8 gm/dL Albumin/Globulin Ratio 0.8 L (1-2) Meds: Medications Generic Name Dose Route Start Last Admin Trade Name Freq PRN Reason Stop Dose Admin Sodium Chloride 10 ml 08/19/19 13:58 08/19/19 14:01 Saline Flush FLUSH 10 ml ASDIRECTED PRN Administration Keep Vein Open Discontinued Medications Generic Name Dose Route Start Last Admin Trade Name Noel PRN Reason Stop Dose Admin Albuterol/Ipratropium 3 ml 08/19/19 14:28 08/19/19 14:45 Duoneb 3.0-0.5 Mg/3 Ml NEB 08/19/19 14:29 3 ml ONETIME ONE Administration Albuterol/Ipratropium Confirm 08/19/19 14:44 08/19/19 14:52 Duoneb 3.0-0.5 Mg/3 Ml Administered 08/19/19 14:45 Not Given Dose 3 ml .ROUTE .STK-MED ONE Hydromorphone HCl 1 mg 08/19/19 13:59 08/19/19 14:03 Dilaudid IVPUSH 08/19/19 14:00 1 mg ONETIME ONE Administration Hydromorphone HCl 0.5 mg 08/19/19 14:53 08/19/19 14:58 Dilaudid IVPUSH 08/19/19 14:54 0.5 mg ONETIME ONE Administration Methylprednisolone Sodium Succinate 125 mg 08/19/19 14:28 08/19/19 14:45 Solu-Medrol IVPUSH 08/19/19 14:29 125 mg ONETIME ONE Administration - Re-Assessments/Exams Free Text/Narrative Re-Assessment/Exam: 08/19/19 14:36 I ordered oxygen, bypap, EKG, CXR, labs, solu-medrol 125mg IV and duoneb. His EKG shows atrial fibrillation with no acute changes. 08/19/19 15:27 His CXR shows stable findings nothing acute is appreciated. His WBC was slightly elevated at 10.63. His Hgb was 12.6. His creatinine was slightly elevated at 1.5. His glucose is 142. His troponin is negative. His CRP is elevated at 7.9. His BNP is 798. He is on oxygen by nasal cannula now and his sats are about 89%. He did have an episode where he says he chocked on some phlegm and then he would not respond. His eyes were open but he would not talk. He quickly came out of it. It did not appear he was having a seizure. His oxygen saturations were about 88% at that time. I am not sure what this was. I feel he needs to be admitted. I called Dr Davalos and she agreed to the admission. Departure - Departure Time of Disposition: 15:35 Disposition: Admitted As Inpatient 64 Condition: Poor Clinical Impression: COPD exacerbation, Hypoxia Atrial fibrillation Qualifiers: Atrial fibrillation type: chronic Qualified Code(s): I48.2 - Chronic atrial fibrillation - Discharge Information Forms: ED Department Discharge Sepsis Event Note - Evaluation Sepsis Screening Result: No Definite Risk - Focused Exam Vital Signs: Vital Signs Temp Pulse Resp BP Pulse Ox Pulse Ox Pulse Ox 08/19/19 14:29 92 L 08/19/19 14:06 97.9 F 80 24 H 155/117 H 96 08/19/19 14:01 96 Date Exam was Performed: 08/19/19 Time Exam was Performed: 15:27 - My Orders Last 24 Hours: My Active Orders 08/19/19 13:58 Cardiac Monitoring [RC] . DIRECTED Oxygen Therapy [RC] PRN Sodium Chloride 0.9% [Saline Flush] 10 ml FLUSH ASDIRECTED PRN Peripheral IV Insertion Adult [OM.PC] Stat 08/19/19 13:59 EKG Documentation Completion [RC] STAT Peripheral IV Care [RC] . DIRECTED 08/19/19 14:01 BiPAP [RESPCARE] Routine 08/19/19 14:29 RT Aerosol Therapy [RC] ASDIRECTED - Assessment/Plan Last 24 Hours: My Active Orders 08/19/19 13:58 Cardiac Monitoring [RC] . DIRECTED Oxygen Therapy [RC] PRN Sodium Chloride 0.9% [Saline Flush] 10 ml FLUSH ASDIRECTED PRN Peripheral IV Insertion Adult [OM.PC] Stat 08/19/19 13:59 EKG Documentation Completion [RC] STAT Peripheral IV Care [RC] . DIRECTED 08/19/19 14:01 BiPAP [RESPCARE] Routine 08/19/19 14:29 RT Aerosol Therapy [RC] ASDIRECTED
[2019-08-19] MEDS ORDERED: Albuterol/Ipratropium 3.0-0.5 MG/3 ML Neb Soln ONE (14:44)
[2019-08-19] MEDS ORDERED: HYDROmorphone 0.5 MG/0.5 ML Syringe IVPUSH ONE (14:53)
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
[2019-08-19] MEDS: Codeine/guaiFENesin 10-100 MG/5 ML Syrup 5 ML Cup PO SCH ×2 (17:41→23:09)
[2019-08-19] MEDS: guaiFENesin 100 MG/5 ML Soln 10 ML UD Cup PO SCH (17:41)
[2019-08-19] MEDS ORDERED: Albuterol/Ipratropium 3.0-0.5 MG/3 ML Neb Soln NEB SCH (18:00)
[2019-08-19] MEDS: Azithromycin 250 MG Tab PO SCH (18:41)
[2019-08-19] MEDS: Ipratropium 0.02% 0.5 MG/2.5 ML Neb Soln NEB SCH (20:18)
[2019-08-19] MEDS: Budesonide 0.5 MG/2 ML Neb Susp NEB SCH (20:18)
[2019-08-19] MEDS ORDERED: Simvastatin 20 MG Tab PO SCH (21:00)
[2019-08-19] MEDS: Potassium Chloride 10 MEQ Tab.ER PO SCH (21:05)
[2019-08-19] MEDS: Mirtazapine 30 MG Tab PO SCH (21:05)
[2019-08-19] MEDS: Verapamil 120 MG Cap.ER PO SCH (21:06)
[2019-08-19] MEDS: Benzonatate 100 MG Cap PO SCH (21:07)
[2019-08-19] MEDS: ClonazePAM 1 MG Tab PO SCH (21:07)
[2019-08-19] MEDS: Apixaban 5 MG Tab PO SCH (21:08)
[2019-08-19] MEDS: guaiFENesin 600 MG Tab.ER PO SCH (21:08)
[2019-08-19] MEDS: Magnesium Oxide 400 MG Tab PO SCH (21:08)
[2019-08-19] MEDS: Cholecalciferol (Vitamin D3) 25 MCG Tab PO SCH (21:08)
[2019-08-19] MEDS ORDERED: Nitroglycerin 0.4 MG Tab.SL SL PRN (21:30)
[2019-08-19] MEDS ORDERED: Acetaminophen 325 MG Tab PO PRN (21:31)
[2019-08-20] MEDS: guaiFENesin 100 MG/5 ML Soln 10 ML UD Cup PO SCH ×3 (00:34→21:26)
[2019-08-20] MEDS: Codeine/guaiFENesin 10-100 MG/5 ML Syrup 5 ML Cup PO SCH ×3 (05:41→17:16)
[2019-08-20] MEDS: ClonazePAM 0.5 MG Tab PO SCH (05:41)
[2019-08-20] MEDS: Budesonide 0.5 MG/2 ML Neb Susp NEB SCH ×2 (06:30→20:10)
[2019-08-20] MEDS: Ipratropium 0.02% 0.5 MG/2.5 ML Neb Soln NEB SCH ×3 (06:30→20:10)
[2019-08-20] MEDS ORDERED: VERAPAMIL 240 MG PO SCH (09:30)
[2019-08-20] MEDS: PARoxetine 20 MG Tab PO SCH (09:37)
[2019-08-20] MEDS: Tamsulosin 0.4 MG Cap.ER PO SCH (09:37)
[2019-08-20] MEDS: Furosemide 40 MG Tab PO SCH (09:40)
[2019-08-20] MEDS: Azithromycin 250 MG Tab PO SCH (09:41)
[2019-08-20] MEDS: Cholecalciferol (Vitamin D3) 25 MCG Tab PO SCH ×2 (09:41→21:24)
[2019-08-20] MEDS: Pantoprazole 40 MG Tab.CR PO SCH (09:42)
[2019-08-20] MEDS: Apixaban 5 MG Tab PO SCH ×2 (09:43→21:25)
[2019-08-20] MEDS: Clopidogrel 75 MG Tab PO SCH (09:43)
[2019-08-20] MEDS: VERAPAMIL 240 MG PO SCH ×2 (09:49→21:40)
[2019-08-20] MEDS: Potassium Chloride 10 MEQ Tab.ER PO SCH ×2 (09:49→21:25)
[2019-08-20] MEDS: Benzonatate 100 MG Cap PO SCH ×2 (09:50→15:38)
[2019-08-20] MEDS: guaiFENesin 600 MG Tab.ER PO SCH (09:50)
--- NOTE | 2019-08-20 10:46 | PCM.PN ---
- General Info Date of Service: 08/20/19 Subjective Update: Shortness of breath improved Slept OK Tolerating diet BM yesterday - Patient Data Vitals - Most Recent: Last Vital Signs Temp 97.9 F 08/20/19 04:13 Pulse 75 08/20/19 04:13 Resp 15 08/20/19 04:13 BP 122/88 08/20/19 04:13 Pulse Ox 93 L 08/20/19 06:34 Weight - Most Recent: 87.742 kg - Exam Quality Assessment: Supplemental Oxygen General: Alert, Oriented, Cooperative, Mild Distress, Moderate Distress HEENT: Pupils Equal, Pupils Reactive, Mucous Membr. Moist/[place] Neck: Supple Lungs: Decreased Breath Sounds (no breath sounds are heard from mid lung down with wheezing in upper lobes), Crackles, Wheezing. No: Rales, Rhonchi, Rub Cardiovascular: Irregular Rhythm, Tachycardia. No: Murmurs, Gallops, Rubs GI/Abdominal Exam: Normal Bowel Sounds, Soft, Distended. No: Guarding, Rigid, Rebound, Tender Extremities: Slow Capillary Refill Neurological: No New Focal Deficit Psy/Mental Status: Alert Sepsis Event Note - Evaluation Sepsis Screening Result: No Definite Risk - Focused Exam Vital Signs: Vital Signs Temp Pulse Resp BP Pulse Ox Pulse Ox 08/20/19 06:34 93 L 08/20/19 04:13 97.9 F 75 15 122/88 95 08/19/19 23:11 97.7 F 52 L 13 113/77 91 L Date Exam was Performed: 08/20/19 Time Exam was Performed: 12:15 - Problem List & Annotations (1) COPD exacerbation SNOMED Code(s): 527967038, 824849085 Code(s): J44.1 - CHRONIC OBSTRUCTIVE PULMONARY DISEASE W (ACUTE) EXACERBATION Status: Acute Current Visit: Yes (2) Atrial fibrillation SNOMED Code(s): 45649399 Code(s): I48.91 - UNSPECIFIED ATRIAL FIBRILLATION Status: Acute Current Visit: Yes Onset Date: 09/11/18 Qualifiers: Atrial fibrillation type: chronic Annotation/Comment:: rate control improved (3) Macrocytic anemia SNOMED Code(s): 59998850 Code(s): D53.9 - NUTRITIONAL ANEMIA, UNSPECIFIED Status: Acute Current Visit: Yes (4) Acute kidney injury SNOMED Code(s): 87841803, 72934542 Code(s): N17.9 - ACUTE KIDNEY FAILURE, UNSPECIFIED Status: Acute Current Visit: Yes (5) Acute renal failure SNOMED Code(s): 73293250 Code(s): N17.9 - ACUTE KIDNEY FAILURE, UNSPECIFIED Status: Acute Current Visit: No (6) Afib, Atrial fibrillation SNOMED Code(s): 98434187 Code(s): I48.91 - UNSPECIFIED ATRIAL FIBRILLATION Status: Chronic Priority: High Current Visit: No (7) Anxiety SNOMED Code(s): 88484847 Code(s): F41.9 - ANXIETY DISORDER, UNSPECIFIED Status: Acute Current Visit: No (8) COLD, Chronic obstructive lung disease SNOMED Code(s): 46700836 Code(s): J44.9 - CHRONIC OBSTRUCTIVE PULMONARY DISEASE, UNSPECIFIED Status : Acute Priority: High Current Visit: No Onset Date: 09/12/18 (9) Coronary artery disease SNOMED Code(s): 93786347 Code(s): I25.10 - ATHSCL HEART DISEASE OF [place] CORONARY ARTERY W/O ANG PCTRS Status: Acute Current Visit: No Qualifiers: Coronary Disease-Associated Artery/Lesion type: unspecified vessel or lesion type [place] vs. transplanted heart: [place] heart Associated angina: without angina Qualified Code(s): I25.10 - Atherosclerotic heart disease of [place] coronary artery without angina pectoris (10) Depression SNOMED Code(s): 97307325 Code(s): F32.9 - MAJOR DEPRESSIVE DISORDER, SINGLE EPISODE, UNSPECIFIED Status: Chronic Current Visit: No (11) Diabetes mellitus SNOMED Code(s): 16009109 Code(s): E11.9 - TYPE 2 DIABETES MELLIT[place] WITHOUT COMPLICATIONS Status: Acute Priority: High Current Visit: No (12) Hypertension SNOMED Code(s): 65933270 Code(s): I10 - ESSENTIAL (PRIMARY) HYPERTENSION Status: Acute Current Visit: No (13) Obstructive sleep apnea on CPAP SNOMED Code(s): 37678794 Code(s): G47.33 - OBSTRUCTIVE SLEEP APNEA (ADULT) (PEDIATRIC) Status: Chronic Priority: High Current Visit: No (14) PTSD (post-traumatic stress disorder) SNOMED Code(s): 80462599 Code(s): F43.10 - POST-TRAUMATIC STRESS DISORDER, UNSPECIFIED Status: Acute Current Visit: No (15) Chest pain SNOMED Code(s): 43593573 Code(s): R07.9 - CHEST PAIN, UNSPECIFIED Status: Acute Current Visit: Yes (16) Mycoplasma infection SNOMED Code(s): 520282349 Code(s): A49.3 - MYCOPLASMA INFECTION, UNSPECIFIED SITE Status: Acute Priority: High Current Visit: No - Problem List Review Problem List Initiated/Reviewed/Updated: Yes - Plan Plan:: COPD exacerbation Mycoplasma pneumonia Chronic respiratory alkalosis Acute and chronic respiratory failure with hypoxia Worsening SOB for 1 week-->Requiring 5-6 PRN nebs Normal CXR Requiring 4L NC ( home 3L) PLAN - Azithromycin day 2 - Discontinue Medrol - Start Solumedrol 60mg IV q8h - Procalcitonin tomorrow - ABGs as needed - Repeat labs in AM - Sputum culture, f/u Atrial fibrillation Chest pain Syncope CAD s/p stents x 3 Rate controlled on admission, 80 HR trend 52-90 Troponin trend normal, no changes in EKG PLAN - Discontinue telemetry - Monitor HR Acute kidney injury Baseline GFR 55, GFR 44 on admission --> 37 PLAN - Stric I/O - Monitor urine output - Repeat labs in AM Diabetes mellitus, HbA1c- 8 %(04/2019) Admission glucose 142 PLAN - Reconcile home medications - Scheduled accuchecks - NO sliding scale, will adjust according to values in the AM - Reconcile home medications once available Hypertension BP on admission 155/117 BP trend 103-122/72-88 PLAN - PRN hydralazine - Reconcile home medications once available Obstructive sleep apnea on CPAP No acute issues PLAN - Continue home CPAP Anxiety Depression PTSD (post-traumatic stress disorder) No acute SI or HI PLAN - Reconcile home medications once available PROPHYLAXIS DVT- Eliquis GI- not indicated CODE STATUS: FULL CODE DISPOSITION: Will remain admitted for respiratory therapy and oxygen supplementation as well as continuation of ATBs and IV steroids.
[2019-08-20] MEDS: methylPREDNISolone Sodium Succinate 40 MG/1 ML SDV IVPUSH SCH ×3 (11:42→21:26)
[2019-08-20] MEDS: Verapamil 120 MG Cap.ER PO SCH (14:42)
[2019-08-20] MEDS ORDERED: SIMVASTATIN 20 MG PO SCH (21:00)
[2019-08-20] MEDS: Magnesium Oxide 400 MG Tab PO SCH (21:24)
[2019-08-20] MEDS: ClonazePAM 1 MG Tab PO SCH (21:25)
[2019-08-20] MEDS: Mirtazapine 30 MG Tab PO SCH (21:25)
[2019-08-20] MEDS ORDERED: LORazepam 0.5 MG Tab PO ONE (22:38)
[2019-08-21] MEDS: methylPREDNISolone Sodium Succinate 40 MG/1 ML SDV IVPUSH SCH ×4 (03:56→22:16)
[2019-08-21] MEDS: Ipratropium 0.02% 0.5 MG/2.5 ML Neb Soln NEB SCH ×4 (04:49→20:01)
[2019-08-21] MEDS: Budesonide 0.5 MG/2 ML Neb Susp NEB SCH ×3 (04:49→20:01)
[2019-08-21] MEDS: ClonazePAM 0.5 MG Tab PO SCH (05:23)
[2019-08-21] MEDS: Clopidogrel 75 MG Tab PO SCH (08:53)
[2019-08-21] MEDS: Cholecalciferol (Vitamin D3) 25 MCG Tab PO SCH ×2 (08:53→20:39)
[2019-08-21] MEDS: Pantoprazole 40 MG Tab.CR PO SCH (08:54)
[2019-08-21] MEDS: PARoxetine 20 MG Tab PO SCH (08:54)
[2019-08-21] MEDS: Azithromycin 250 MG Tab PO SCH (08:54)
[2019-08-21] MEDS: Apixaban 5 MG Tab PO SCH ×2 (08:54→20:39)
[2019-08-21] MEDS: Potassium Chloride 10 MEQ Tab.ER PO SCH ×2 (08:54→20:38)
[2019-08-21] MEDS: Tamsulosin 0.4 MG Cap.ER PO SCH (08:54)
[2019-08-21] MEDS: guaiFENesin 100 MG/5 ML Soln 10 ML UD Cup PO SCH ×2 (08:55→20:38)
[2019-08-21] MEDS: VERAPAMIL 240 MG PO SCH ×2 (08:55→20:48)
[2019-08-21] MEDS: Furosemide 40 MG Tab PO SCH (08:55)
--- NOTE | 2019-08-21 16:24 | PCM.PN ---
- General Info Date of Service: 08/21/19 Subjective Update: Slept OK States he feels better BM today Tolerating diet - Patient Data Vitals - Most Recent: Last Vital Signs Temp 98.2 F 08/21/19 08:50 Pulse 73 08/21/19 08:50 Resp 20 08/21/19 08:50 BP 116/61 08/21/19 08:50 Pulse Ox 96 08/21/19 13:00 Weight - Most Recent: 89.358 kg - Exam Quality Assessment: Supplemental Oxygen General: Alert, Oriented, Cooperative, Mild Distress, Moderate Distress HEENT: Pupils Equal, Pupils Reactive, Mucous Membr. Moist/[place] Neck: [place] Lungs: Decreased Breath Sounds, Wheezing. No: Crackles, Rales, Rhonchi, Rub Cardiovascular: Regular Rate, Regular Rhythm. No: Murmurs, Gallops, Rubs GI/Abdominal Exam: Normal Bowel Sounds, Soft, Distended. No: Guarding, Rigid, Rebound Back Exam: Normal Inspection, Full Range of Motion Extremities: Normal Inspection, Slow Capillary Refill Psy/Mental Status: Alert, Anxious Sepsis Event Note - Evaluation Sepsis Screening Result: No Definite Risk - Focused Exam Vital Signs: Vital Signs Temp Pulse Resp BP Pulse Ox Pulse Ox 08/21/19 13:00 96 08/21/19 08:50 98.2 F 73 20 116/61 91 L 08/21/19 04:48 98.2 F 90 16 134/83 89 L Date Exam was Performed: 08/21/19 Time Exam was Performed: 16:18 - Problem List & Annotations (1) COPD exacerbation SNOMED Code(s): 514412935, 400061161 Code(s): J44.1 - CHRONIC OBSTRUCTIVE PULMONARY DISEASE W (ACUTE) EXACERBATION Status: Acute Current Visit: Yes (2) Atrial fibrillation SNOMED Code(s): 28036664 Code(s): I48.91 - UNSPECIFIED ATRIAL FIBRILLATION Status: Acute Current Visit: Yes Onset Date: 09/11/18 Qualifiers: Atrial fibrillation type: chronic Annotation/Comment:: rate control improved (3) Macrocytic anemia SNOMED Code(s): 65650594 Code(s): D53.9 - NUTRITIONAL ANEMIA, UNSPECIFIED Status: Acute Current Visit: Yes (4) Acute kidney injury SNOMED Code(s): 53317035, 79668454 Code(s): N17.9 - ACUTE KIDNEY FAILURE, UNSPECIFIED Status: Acute Current Visit: Yes (5) Acute renal failure SNOMED Code(s): 36618801 Code(s): N17.9 - ACUTE KIDNEY FAILURE, UNSPECIFIED Status: Acute Current Visit: No (6) Anxiety SNOMED Code(s): 23383806 Code(s): F41.9 - ANXIETY DISORDER, UNSPECIFIED Status: Acute Current Visit: No (7) COLD, Chronic obstructive lung disease SNOMED Code(s): 74208665 Code(s): J44.9 - CHRONIC OBSTRUCTIVE PULMONARY DISEASE, UNSPECIFIED Status : Acute Priority: High Current Visit: No Onset Date: 09/12/18 (8) Coronary artery disease SNOMED Code(s): 45817799 Code(s): I25.10 - ATHSCL HEART DISEASE OF [place] CORONARY ARTERY W/O ANG PCTRS Status: Acute Current Visit: No Qualifiers: Coronary Disease-Associated Artery/Lesion type: unspecified vessel or lesion type [place] vs. transplanted heart: [place] heart Associated angina: without angina Qualified Code(s): I25.10 - Atherosclerotic heart disease of [place] coronary artery without angina pectoris (9) Depression SNOMED Code(s): 28243420 Code(s): F32.9 - MAJOR DEPRESSIVE DISORDER, SINGLE EPISODE, UNSPECIFIED Status: Chronic Current Visit: No (10) Diabetes mellitus SNOMED Code(s): 96098640 Code(s): E11.9 - TYPE 2 DIABETES [place]LL[place] WITHOUT COMPLICATIONS Status: Acute Priority: High Current Visit: No (11) Hypertension SNOMED Code(s): 35543094 Code(s): I10 - ESSENTIAL (PRIMARY) HYPERTENSION Status: Acute Current Visit: No (12) Obstructive sleep apnea on CPAP SNOMED Code(s): 77333568 Code(s): G47.33 - OBSTRUCTIVE SLEEP APNEA (ADULT) (PEDIATRIC) Status: Chronic Priority: High Current Visit: No (13) PTSD (post-traumatic stress disorder) SNOMED Code(s): 90361984 Code(s): F43.10 - POST-TRAUMATIC STRESS DISORDER, UNSPECIFIED Status: Acute Current Visit: No (14) Chest pain SNOMED Code(s): 06609622 Code(s): R07.9 - CHEST PAIN, UNSPECIFIED Status: Acute Current Visit: Yes (15) Mycoplasma infection SNOMED Code(s): 878636595 Code(s): A49.3 - MYCOPLASMA INFECTION, UNSPECIFIED SITE Status: Acute Priority: High Current Visit: No - Problem List Review Problem List Initiated/Reviewed/Updated: Yes - Plan Plan:: COPD exacerbation Mycoplasma pneumonia Chronic respiratory alkalosis Acute and chronic respiratory failure with hypoxia Worsening SOB for 1 week-->Requiring 5-6 PRN nebs Normal CXR Requiring 4L NC ( home 3L) O2 trend >87% PLAN - Azithromycin day 3 - Continue Solumedrol 60mg IV q8h - ABGs as needed - Repeat labs in AM - Sputum culture, f/u Atrial fibrillation Syncope CAD s/p stents x 3 Rate controlled on admission, 80 HR trend 75-95 Troponin trend normal, no changes in EKG on first 24 hours No further syncopal episodes, no arrhythmias during telemetry monitoring PLAN - Discontinue telemetry - Monitor HR Acute kidney injury Baseline GFR 55, GFR 44 on admission --> 37, stable PLAN - Stric I/O - Monitor urine output - Repeat labs in AM Diabetes mellitus, HbA1c- 8 %(04/2019) Admission glucose 142 PLAN - Reconcile home medications - Scheduled accuchecks - NO sliding scale, will adjust according to values in the AM - Reconcile home medications once available Hypertension BP on admission 155/117 BP trend 108-124/76-88 PLAN - PRN hydralazine - Reconcile home medications once available Obstructive sleep apnea on CPAP No acute issues PLAN - Continue home CPAP Anxiety Depression PTSD (post-traumatic stress disorder) No acute SI or HI PLAN - Reconcile home medications once available Chest pain, resolved PROPHYLAXIS DVT- Eliquis GI- not indicated CODE STATUS: FULL CODE DISPOSITION: Will remain admitted for respiratory therapy and oxygen supplementation as well as continuation of ATBs and IV steroids.
[2019-08-21] MEDS ORDERED: Levalbuterol HCl 1.25 MG/3 ML Neb NEB PRN (20:23)
[2019-08-21] MEDS: Magnesium Oxide 400 MG Tab PO SCH (20:39)
[2019-08-21] MEDS: Mirtazapine 30 MG Tab PO SCH (20:39)
[2019-08-21] MEDS: ClonazePAM 1 MG Tab PO SCH (20:40)
[2019-08-21] MEDS ORDERED: LORazepam 0.5 MG Tab PO SCH (21:00)
[2019-08-21] MEDS ORDERED: Simvastatin 20 MG Tab**OWN MED PO SCH (21:00)
[2019-08-22] MEDS: methylPREDNISolone Sodium Succinate 40 MG/1 ML SDV IVPUSH SCH ×2 (03:36→11:42)
[2019-08-22] MEDS: ClonazePAM 0.5 MG Tab PO SCH (05:36)
[2019-08-22] MEDS: Budesonide 0.5 MG/2 ML Neb Susp NEB SCH (06:05)
[2019-08-22] MEDS: Ipratropium 0.02% 0.5 MG/2.5 ML Neb Soln NEB SCH ×2 (06:05→13:33)
[2019-08-22] MEDS: Azithromycin 250 MG Tab PO SCH (08:13)
[2019-08-22] MEDS: Clopidogrel 75 MG Tab PO SCH (08:13)
[2019-08-22] MEDS: guaiFENesin 100 MG/5 ML Soln 10 ML UD Cup PO SCH (08:13)
[2019-08-22] MEDS: PARoxetine 20 MG Tab PO SCH (08:13)
[2019-08-22] MEDS: VERAPAMIL 240 MG PO SCH (08:13)
[2019-08-22] MEDS: Tamsulosin 0.4 MG Cap.ER PO SCH (08:13)
[2019-08-22] MEDS: Pantoprazole 40 MG Tab.CR PO SCH (08:13)
[2019-08-22] MEDS: Furosemide 40 MG Tab PO SCH (08:13)
[2019-08-22] MEDS: Cholecalciferol (Vitamin D3) 25 MCG Tab PO SCH (08:13)
[2019-08-22] MEDS: Apixaban 5 MG Tab PO SCH (08:13)
[2019-08-22] MEDS: Potassium Chloride 10 MEQ Tab.ER PO SCH (08:14)
[2019-08-22 12:19] VITALS: BP 127/82; PULSE 92
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
== END 2019-08-22 14:52 | disposition home or self-care (01) ==
LOC: JD.ED 13:55 → JD.MS 16:15
PROVIDERS: ADMIT Internal Medicine; ATTEND Internal Medicine
DX: J44.1 Chronic obstructive pulmonary disease with (acute) exacerbation (principal); J96.21 Acute and chronic respiratory failure with hypoxia; I48.20 Chronic atrial fibrillation, unspecified; D53.9 Nutritional anemia, unspecified; N17.9 Acute kidney failure, unspecified; J15.7 Pneumonia due to Mycoplasma pneumoniae; F41.9 Anxiety disorder, unspecified; I25.10 Atherosclerotic heart disease of native coronary artery without angina pectoris; E78.00 Pure hypercholesterolemia, unspecified; K21.9 Gastro-esophageal reflux disease without esophagitis; E66.9 Obesity, unspecified; I10 Essential (primary) hypertension; E13.69 Other specified diabetes mellitus with other specified complication; F32.89 Other specified depressive episodes; G47.33 Obstructive sleep apnea (adult) (pediatric); F43.12 Post-traumatic stress disorder, chronic; E87.3 Alkalosis; Z87.891 Personal history of nicotine dependence; Z88.5 Allergy status to narcotic agent; Z95.5 Presence of coronary angioplasty implant and graft; Z88.8 Allergy status to other drugs, medicaments and biological substances; Z79.899 Other long term (current) drug therapy; Z68.30 Body mass index [BMI] 30.0-30.9, adult; Z99.11 Dependence on respirator [ventilator] status; Z79.4 Long term (current) use of insulin
CPT/HCPCS: 36415; 36600; 71045; 80048; 80053; 82728; 82803; 83605; 83615; 83735; 83880; 84100; 84145; 84484; 85025; 85652; 86140; 86738; 87899; 93005; 94640; 94760; 94761; 96374; 96375; 96376; 99285; A9270; J1170; J2920; J2930; J7509; 93010; 99217; 99219; 99224; G0378; J7620-GY

== ENCOUNTER 2019-12-05 06:43 | Emergency (ER) | payer MEDICARE, OTHER ==
[2019-12-05 06:52] VITALS: BP 147/94; PULSE 111
[2019-12-05] MEDS ORDERED: Ondansetron 4 MG/2 ML SDV IVPUSH ONE (07:09)
[2019-12-05] MEDS ORDERED: Sodium Chloride 0.9% 10 ML Syringe FLUSH PRN (07:09)
[2019-12-05] MEDS ORDERED: HYDROmorphone 1 MG/ML Syringe IVPUSH ONE (07:11)
[2019-12-05] MEDS ORDERED: Sodium Chloride 0.9% 1,000 ML IV SCH (07:15)
--- NOTE | 2019-12-05 08:43 | EDM.PDOC ---
ED HPI GENERAL MEDICAL PROBLEM - General Chief Complaint: Abdominal Pain Stated Complaint: [facility] Time Seen by Provider: 12/05/19 07:02 Source of Information: Reports: Patient, EMS History Limitations: Reports: No Limitations - History of Present Illness INITIAL COMMENTS - FREE TEXT/NARRATIVE: The patient presents by [facility] for abdominal pain and diarrhea. The patient has COPD and he is on home oxygen. Three weeks ago his was diagnosed with COVID 19. He isolated himself in their camper at the [facility]. He came back this week and started having abdominal pain and diarrhea. He has no fever, chills, cough, or chest pain. He is chronically short of breath due to his COPD and that has not changed. He is not sure if he ate any bad food. This all started on of last week. Onset: Gradual Duration: Day(s): (4) Location: Reports: Abdomen Quality: Reports: Other (cramping) Severity: Moderate Improves with: Reports: None Worsens with: Reports: None Associated Symptoms: Reports: Shortness of Breath. Denies: Chest Pain, Cough, Fever/Chills, Headaches, Nausea/Vomiting Treatments TALENT ACQUISITION MANAGER: Reports: IV/IO, Oxygen Abdomen Pain Score (Numeric/FACES): 9 - Related Data Allergies Allergy/AdvReac Type Severity Reaction Status Date / Time acetaminophen [From Tylenol] Allergy Airway Verified 12/05/19 06:48 Tightness aspirin Allergy Airway Verified 12/05/19 06:48 Tightness horseradish Allergy Airway Verified 12/05/19 06:48 Tightness ibuprofen Allergy Airway Verified 12/05/19 06:48 Tightness meperidine HCl [From Demerol] Allergy Airway Verified 12/05/19 06:48 Tightness morphine Allergy Itching Verified 12/05/19 06:48 oxycodone Allergy Rash Verified 12/05/19 06:48 sumatriptan [From Imitrex] Allergy Cannot Verified 12/05/19 06:48 Remember sumatriptan succinate Allergy Cannot Verified 12/05/19 06:48 [From Imitrex] Remember haloperidol [From Haldol] AdvReac Change Verified 12/05/19 06:48 Mental Status haloperidol lactate AdvReac Change Verified 12/05/19 06:48 [From Haldol] Mental Status ketorolac tromethamine AdvReac Change Verified 12/05/19 06:48 [From Toradol] Mental Status antihistamines Allergy Airway Uncoded 07/22/19 09:00 Tightness Home Meds: Home Meds Clopidogrel [Plavix] 75 mg PO DAILY 04/12/14 [History] Furosemide [Lasix] 40 mg PO DAILY 04/12/14 [History] PARoxetine HCl [Paxil] 20 mg PO DAILY 04/12/14 [History] Potassium Chloride 10 meq PO BID 04/12/14 [History] Tamsulosin HCl [Flomax] 0.4 mg PO DAILY 04/12/14 [History] Tiotropium [Spiriva HandiHaler] 1 cap INH DAILY 04/12/14 [History] Apixaban [Eliquis] 5 mg PO BID 01/23/16 [History] ClonazePAM [KlonoPIN] 1 mg PO BEDTIME 10/18/16 [History] Ipratropium [place] 1 spray NASBOTH BID PRN 10/18/16 [History] Cholecalciferol (Vitamin D3) [Vitamin D] 1,000 unit PO BID 04/13/17 [History] Mirtazapine 30 mg PO BEDTIME 04/13/17 [History] Magnesium Oxide 420 mg PO BEDTIME 02/19/18 [History] ClonazePAM [KlonoPIN] 0.5 mg PO ACBREAKFAST 02/06/19 [History] Budesonide/Formoterol [Symbicort 160-4.5 MCG] 2 puff INH DAILY 04/18/19 [History] Omeprazole Magnesium [Prilosec Otc] 40 mg PO DAILY 07/22/19 [History] Verapamil HCl [Verapamil Sr] 120 mg PO BID 08/19/19 [History] Simvastatin 10 mg PO BEDTIME 08/20/19 [History] guaiFENesin [Guaifenesin] 400 mg PO BID 08/20/19 [History] Azithromycin [Zithromax] 500 mg PO DAILY 1 Days #2 tablet 08/22/19 [Rx] Levalbuterol Tartrate [Xopenex HFA] 1 puff INH Q6H #1 inhaler 08/22/19 [Rx] levalbuterol HCL [Xopenex] 1.25 mg NEB ONETIME #15 neb 08/22/19 [Rx] methylPREDNISolone [Medrol] 4 mg PO ASDIRECTED #78 tablet 08/22/19 [Rx] Hydrocodone/Acetaminophen [Hydrocodone-Acetamin 5-325 mg] 1 - 2 each PO Q6HR PRN #6 tablet 12/05/19 [Rx] Ondansetron [Zofran ODT] 4 mg PO Q6H PRN #20 tab.dis 12/05/19 [Rx] Past Medical History HEENT History: Reports: Impaired Vision Other HEENT History: wears eyeglasses and upper/lower dentures Cardiovascular History: Reports: Afib, CAD, High Cholesterol, Hypertension, VA, Other (See Below) Other Cardiovascular History: stents in 1999, 5 VA Respiratory History: Reports: COPD, Sleep Apnea Gastrointestinal History: Reports: GERD, PUD Genitourinary History: Reports: Acute Renal Failure, BPH Musculoskeletal History: Reports: None Neurological History: Reports: Headaches, Chronic Other Neuro History: patient reports minimal CARDENAS, will continue to monitor. Psychiatric History: Reports: Anxiety, Depression, PTSD Endocrine/Metabolic History: Reports: Obesity/BMI 30+, Other (See Below) Other Endocrine/Metabolic History: boardline diabetic- checks AM BS daily Hematologic History: Reports: B12 Deficiency - Infectious Disease History Infectious Disease History: Reports: Chicken Pox, Measles, Mumps - Past Surgical History Head Surgeries/Procedures: Reports: None HEENT Surgical History: Reports: Cataract Surgery, Naso-Sinus Surgery Cardiovascular Surgical History: Reports: Coronary Artery Stent GI Surgical History: Reports: Appendectomy, Colonoscopy, EGD Neurological Surgical History: Reports: None Musculoskeletal Surgical History: Reports: Hip Replacement Oncologic Surgical History: Reports: Other (See Below) Social & Family History - Family History Family Medical History: Noncontributory Oncologic: Reports: Leukemia Other Oncologic Family History: Brother - Tobacco Use Smoking Status *Q: Former Smoker Used Tobacco, but Quit: Yes Month/Year Tobacco Last Used: 2009 - Caffeine Use Caffeine Use: Reports: Soda Other Caffeine Use: 2/day - Living Situation & Occupation Living situation: Reports: , with Spouse Occupation: Retired ED ROS GENERAL - Review of Systems Review Of Systems: See Below Constitutional: Reports: No Symptoms HEENT: Reports: No Symptoms Respiratory: Reports: Shortness of Breath. Denies: Cough Cardiovascular: Reports: No Symptoms Endocrine: Reports: No Symptoms GI/Abdominal: Reports: Abdominal Pain, Diarrhea. Denies: Nausea, Vomiting : Reports: No Symptoms ED EXAM, GI/ABD - Physical Exam Exam: See Below Exam Limited By: No Limitations General Appearance: Alert, No Apparent Distress Ears: Normal External Exam Nose: Normal Inspection Head: Atraumatic, Normocephalic Neck: Normal Inspection Respiratory/Chest: No Respiratory Distress, Decreased Breath Sounds Cardiovascular: Regular Rate, Rhythm, No Edema, No Murmur GI/Abdominal Exam: Soft, No Organomegaly, No Mass, Tender (Mild generalized tenderness) Course - Vital Signs Last Recorded V/S: Last Vital Signs Temp 97.2 F 12/05/19 06:48 Pulse 111 H 12/05/19 06:48 Resp 25 H 12/05/19 06:48 BP 147/94 H 12/05/19 06:48 Pulse Ox 100 12/05/19 06:48 - Orders/Labs/Meds Orders: Active Orders 24 hr Category Date Time Status Peripheral IV Care [RC] . DIRECTED Care 12/05/19 07:10 Active Abdomen Pelvis w Cont [CT] Stat Exams 12/05/19 07:09 Stop Req Sodium Chloride 0.9% [Normal Saline] 1,000 ml Med 12/05/19 07:15 Active IV ASDIRECTED Sodium Chloride 0.9% [Saline Flush] Med 12/05/19 07:09 Active 10 ml FLUSH ASDIRECTED PRN ED Antiemetic Medication Reflex [OM.PC] Stat Oth 12/05/19 07:09 Ordered Peripheral IV Insertion Adult [OM.PC] Stat Oth 12/05/19 07:09 Ordered Medication Orders Sodium Chloride (Normal Saline) 1,000 mls @ 125 mls/hr IV ASDIRECTED SANTOS Last Admin: 12/05/19 07:27 Dose: 125 mls/hr Documented by: TRENA Sodium Chloride (Saline Flush) 10 ml FLUSH ASDIRECTED PRN PRN Reason: Keep Vein Open Last Admin: 12/05/19 07:28 Dose: 10 ml Documented by: TRENA Labs: Laboratory Tests 12/05/19 12/05/19 12/05/19 Range/Units 07:27 07:27 08:20 WBC 7.75 (4.23-9.07) K/mm3 RBC 4.31 L (4.63-6.08) M/mm3 Hgb 14.3 D (13.7-17.5) gm/dl Hct 45.4 (40.1-51.0) % MCV 105.3 H D (79.0-92.2) fl MCH 33.2 H (25.7-32.2) pg MCHC 31.5 L (32.2-35.5) g/dl RDW Std Deviation 52.8 H (35.1-43.9) fL Plt Count 189 (163-337) K/mm3 MPV 9.5 (9.4-12.3) fl Neut % (Auto) 63.4 (34.0-67.9) % Lymph % (Auto) 16.1 L (21.8-53.1) % [place] % (Auto) 6.8 (5.3-12.2) % Eos % (Auto) 13.3 H (0.8-7.0) Baso % (Auto) 0.3 (0.1-1.2) % Neut # (Auto) 4.91 (1.78-5.38) K/mm3 Lymph # (Auto) 1.25 L (1.32-3.57) K/mm3 [place] # (Auto) 0.53 (0.30-0.82) K/mm3 Eos # (Auto) 1.03 H (0.04-0.54) K/mm3 Baso # (Auto) 0.02 (0.01-0.08) K/mm3 Manual Slide Review Abnormal smear Sodium 142 (136-145) mEq/L Potassium 4.0 (3.5-5.1) mEq/L Chloride 103 (98-107) mEq/L Carbon Dioxide 33 H (21-32) mEq/L Anion Gap 10.0 (5-15) BUN 10 D (7-18) mg/dL Creatinine 1.4 H (0.7-1.3) mg/dL Est Cr Clr Drug Dosing TNP Estimated GFR (MDRD) 50 (>60) mL/min BUN/Creatinine Ratio 7.1 L (14-18) Glucose 138 H (83-115) mg/dL Calcium 9.3 (8.5-10.1) mg/dL Total Bilirubin 0.4 (0.2-1.0) mg/dL AST 17 (15-37) U/L ALT 12 L (16-63) U/L Alkaline Phosphatase 132 H (46-116) U/L Total Protein 6.5 (6.4-8.2) g/dl Albumin 2.9 L (3.4-5.0) g/dl Globulin 3.6 gm/dL Albumin/Globulin Ratio 0.8 L (1-2) Lipase 59 L (73-393) U/L SARS Virus RNA (PCR) Negative (NEGATIVE) Meds: Medications Generic Name Dose Route Start Last Admin Trade Name Freq PRN Reason Stop Dose Admin Sodium Chloride 1,000 mls @ 125 mls/hr 12/05/19 07:15 12/05/19 07:27 Normal Saline IV 125 mls/hr ASDIRECTED SANTOS Administration Sodium Chloride 10 ml 12/05/19 07:09 12/05/19 07:28 Saline Flush FLUSH 10 ml ASDIRECTED PRN Administration Keep Vein Open Discontinued Medications Generic Name Dose Route Start Last Admin Trade Name Freq PRN Reason Stop Dose Admin Hydromorphone HCl 1 mg 12/05/19 07:11 12/05/19 07:28 Dilaudid IVPUSH 12/05/19 07:12 1 mg ONETIME ONE Administration Ondansetron HCl 4 mg 12/05/19 07:09 12/05/19 07:28 Zofran IVPUSH 12/05/19 07:10 4 mg ONETIME ONE Administration - Re-Assessments/Exams Free Text/Narrative Re-Assessment/Exam: 12/05/19 08:47 I ordered an IV NS at 125mL/hr, zofran 4mg IV, dilaudid 1mg IV, labs, UA and C OVID 19. I also ordered a CT of his abdomen and pelvis but the CT scanner went down. His WBC is normal. His creatinine is elevated at 1.4. His GFR is low at 50. His glucose is 138. His alk phos is elevated at 132. His lipase is low at 59. I am waiting for the COVID 19 test. 12/05/19 09:49 The COVID is negative. I will get him some zofran and some hydrocodone as needed. I will discharge him home. Departure - Departure Time of Disposition: 09:50 Disposition: Home, Self-Care 01 Condition: Good Clinical Impression: Gastroenteritis - Discharge Information *PRESCRIPTION DRUG MONITORING PROGRAM REVIEWED*: Not Applicable *COPY OF PRESCRIPTION DRUG MONITORING REPORT IN PATIENT DANITZA: Not Applicable Prescriptions: Hydrocodone/Acetaminophen [Hydrocodone-Acetamin 5-325 mg] 1 - 2 each PO Q6HR PRN #6 tablet PRN Reason: Pain Ondansetron [Zofran ODT] 4 mg PO Q6H PRN #20 tab.dis PRN Reason: Nausea\vomiting Referrals: Ana Benjamin MD [Primary Care Provider] - 1 Week Forms: ED Department Discharge Additional Instructions: Take your medication as prescribed. Take zofran every 6 hours as needed for nausea or vomiting. Take the hydrocodone 1 to 2 pills every 6 hours as needed for pain. Please return if you are worse. Sepsis Event Note (ED) - Evaluation Sepsis Screening Result: No Definite Risk - Focused Exam Vital Signs: Vital Signs Temp Pulse Resp BP Pulse Ox 12/05/19 06:48 97.2 F 111 H 25 H 147/94 H 100 - My Orders Last 24 Hours: My Active Orders 12/05/19 07:09 Abdomen Pelvis w Cont [CT] Stat Sodium Chloride 0.9% [Saline Flush] 10 ml FLUSH ASDIRECTED PRN ED Antiemetic Medication Reflex [OM.PC] Stat Peripheral IV Insertion Adult [OM.PC] Stat 12/05/19 07:10 Peripheral IV Care [RC] . DIRECTED 12/05/19 07:15 Sodium Chloride 0.9% [Normal Saline] 1,000 ml IV ASDIRECTED - Assessment/Plan Last 24 Hours: My Active Orders 12/05/19 07:09 Abdomen Pelvis w Cont [CT] Stat Sodium Chloride 0.9% [Saline Flush] 10 ml FLUSH ASDIRECTED PRN ED Antiemetic Medication Reflex [OM.PC] Stat Peripheral IV Insertion Adult [OM.PC] Stat 12/05/19 07:10 Peripheral IV Care [RC] . DIRECTED 12/05/19 07:15 Sodium Chloride 0.9% [Normal Saline] 1,000 ml IV ASDIRECTED
== END 2019-12-05 10:10 | disposition home or self-care (01) ==
LOC: JD.ED 06:43
DX: K52.9 Noninfective gastroenteritis and colitis, unspecified (principal); J44.9 Chronic obstructive pulmonary disease, unspecified; I48.91 Unspecified atrial fibrillation; I25.2 Old myocardial infarction; I10 Essential (primary) hypertension; K21.9 Gastro-esophageal reflux disease without esophagitis; F32.9 Major depressive disorder, single episode, unspecified; F41.9 Anxiety disorder, unspecified; E66.9 Obesity, unspecified; I25.10 Atherosclerotic heart disease of native coronary artery without angina pectoris; Z88.1 Allergy status to other antibiotic agents; Z88.2 Allergy status to sulfonamides; Z88.6 Allergy status to analgesic agent; Z88.8 Allergy status to other drugs, medicaments and biological substances; Z91.018 Allergy to other foods; Z79.899 Other long term (current) drug therapy; Z79.01 Long term (current) use of anticoagulants; Z79.02 Long term (current) use of antithrombotics/antiplatelets; Z87.891 Personal history of nicotine dependence; Z20.828 Contact with and (suspected) exposure to other viral communicable diseases
CPT/HCPCS: 36415; 80053; 83690; 85025; 96361; 96374; 96375; 99284; J1170; J2405; J7030; U0002; 99283

== ENCOUNTER 2019-12-10 20:20 | Emergency (ER) | payer MEDICARE, OTHER ==
[2019-12-10 20:30] VITALS: BP 115/85; PULSE 137
[2019-12-10] MEDS ORDERED: HYDROmorphone 1 MG/ML Syringe IVPUSH STA (21:18)
[2019-12-10] MEDS ORDERED: Ondansetron 4 MG/2 ML SDV IVPUSH ONE (21:18)
--- NOTE | 2019-12-10 21:27 | EDM.PDOC ---
ED HPI GENERAL MEDICAL PROBLEM - General Chief Complaint: Abdominal Pain Stated Complaint: CHEST PAIN/VOMITING/ABDOMINAL PAIN Time Seen by Provider: 12/10/19 20:53 Source of Information: Reports: Patient, Old Records (ED visit 12/05/2019) History Limitations: Reports: No Limitations - History of Present Illness INITIAL COMMENTS - FREE TEXT/NARRATIVE: Mr. Barclay is a 69-year-old gentleman who, medical records indicate, was seen in this ED this past 12/05/2019, with a complaint of abdominal pain and watery diarrhea since 12/01/2019. He had reported at that time that his had been diagnosed with COVID-19 about 3 weeks prior, but that he had isolated himself. He had not had a fever, chills, cough, or chest pain. He had unchanged chronic dyspnea. He was found to be afebrile. A work-up included a CBC, CMP, lipase level, and a test for the SARS-CoV-2 virus, all of which were unremarkable. He was treated with Zofran and [place], and discharged home with prescriptions for the same. The patient now returns the ED stating that he has continued to vomit, and that his abdominal pain has not changed. He states that the pain is stabbing, and includes the entire abdomen. It waxes and wanes. He has not identified any modifiers. He has not had any improvement despite taking Gas-X, Mylanta, or Pepto-Bismol. He also reports increased dyspnea on exertion. Since his evaluation on 12/05/2019, the patient has not followed up with his PCP. The patient states that he had similar abdominal pain about 10 years ago, but does not recall if he had it worked up. Here in the ED, the patient is found to be tachycardic at 137 bpm, otherwise, he is hemodynamically stable and afebrile, saturating 79% on room air, but 90% on 3 L of oxygen per nasal cannula. Other than his gastrointestinal symptoms and increased dyspnea on exertion, the patient denies having a recent fever, chills, sore throat, ear pain, nasal or sinus congestion, cough, chest pain, palpitations, constipation, urinary symptoms, recent weight gain or weight loss, recent bloody bowel movements or black bowel movements, recent joint aches, headaches, or rashes. The patient's PCP is Dr. Ana Benjamin, at the [facility]. Abdomen Pain Score (Numeric/FACES): 10 - Related Data Allergies Allergy/AdvReac Type Severity Reaction Status Date / Time acetaminophen [From Tylenol] Allergy Airway Verified 12/10/19 20:30 Tightness aspirin Allergy Airway Verified 12/10/19 20:30 Tightness horseradish Allergy Airway Verified 12/10/19 20:30 Tightness ibuprofen Allergy Airway Verified 12/10/19 20:30 Tightness meperidine HCl [From Demerol] Allergy Airway Verified 12/10/19 20:30 Tightness morphine Allergy Itching Verified 12/10/19 20:30 oxycodone Allergy Rash Verified 12/10/19 20:30 sumatriptan [From Imitrex] Allergy Cannot Verified 12/10/19 20:30 Remember sumatriptan succinate Allergy Cannot Verified 12/10/19 20:30 [From Imitrex] Remember haloperidol [From Haldol] AdvReac Change Verified 12/10/19 20:30 Mental Status haloperidol lactate AdvReac Change Verified 12/10/19 20:30 [From Haldol] Mental Status ketorolac tromethamine AdvReac Change Verified 12/10/19 20:30 [From Toradol] Mental Status antihistamines Allergy Airway Uncoded 12/10/19 20:30 Tightness Home Meds: Home Meds Furosemide [Lasix] 40 mg PO DAILY 04/12/14 [History] PARoxetine HCl [Paxil] 20 mg PO DAILY 04/12/14 [History] Potassium Chloride 10 meq PO BID 04/12/14 [History] Tamsulosin HCl [Flomax] 0.4 mg PO DAILY 04/12/14 [History] Tiotropium [Spiriva HandiHaler] 1 cap INH DAILY 04/12/14 [History] Apixaban [Eliquis] 5 mg PO BID 01/23/16 [History] ClonazePAM [KlonoPIN] 0.5 mg PO BEDTIME 10/18/16 [History] Ipratropium [place] 1 spray NASBOTH BID PRN 10/18/16 [History] Cholecalciferol (Vitamin D3) [Vitamin D] 1,000 unit PO BID 04/13/17 [History] Mirtazapine 30 mg PO BEDTIME 04/13/17 [History] Magnesium Oxide 420 mg PO BEDTIME 02/19/18 [History] Budesonide/Formoterol [Symbicort 160-4.5 MCG] 2 puff INH DAILY 04/18/19 [History] Verapamil HCl [Verapamil Sr] 120 mg PO BID 08/19/19 [History] Simvastatin 10 mg PO BEDTIME 08/20/19 [History] guaiFENesin [Guaifenesin] 400 mg PO BID 08/20/19 [History] Levalbuterol Tartrate [Xopenex HFA] 1 puff INH Q6H #1 inhaler 08/22/19 [Rx] Ondansetron [Zofran ODT] 4 mg PO Q6H PRN #20 tab.dis 12/05/19 [Rx] Cyanocobalamin (Vitamin B-12) [Vitamin B-12] 1 tab PO DAILY 12/10/19 [History] Famotidine 40 mg PO DAILY 12/10/19 [History] Finasteride 5 mg PO DAILY 12/10/19 [History] Lactobacillus Acidophilus [Acidophilus] 1 tab PO DAILY 12/10/19 [History] levalbuterol HCL [Xopenex] 1.25 mg NEB QID 12/10/19 [History] Past Medical History HEENT History: Reports: Impaired Vision (wears glasses) Other HEENT History: upper/lower dentures Cardiovascular History: Reports: Afib (paroxysmal), CAD, Heart Failure, High Cholesterol, Hypertension, [place] (x 5), Other (See Below) (Dextrocardia) Respiratory History: Reports: COPD (nightly 2.5 L O2 per NC), Sleep Apnea (nightly AutoPAP) Gastrointestinal History: Reports: GERD, PUD Genitourinary History: Reports: BPH, Chronic Renal Insuffiency Psychiatric History: Reports: Depression, PTSD Endocrine/Metabolic History: Reports: Obesity/BMI 30+, Other (See Below) (Prediabetes) Hematologic History: Reports: B12 Deficiency - Infectious Disease History Infectious Disease History: Reports: Chicken Pox, Measles, Mumps - Past Surgical History HEENT Surgical History: Reports: Cataract Surgery (bilateral), Naso-Sinus Surgery (nose x 3) Cardiovascular Surgical History: Reports: Coronary Artery Stent (x 4) GI Surgical History: Reports: Appendectomy, Colonoscopy (x 7 or 8), EGD (x 7 or 8) Male Surgical History: Reports: Other (See Below) (Right orchiectomy) Musculoskeletal Surgical History: Reports: Hip Replacement (bilateral) Oncologic Surgical History: Reports: Other (See Below) (prostate bx) Social & Family History - Family History Family Medical History: Noncontributory Oncologic: Reports: Leukemia Other Oncologic Family History: Brother - Tobacco Use Smoking Status *Q: Former Smoker Years of Tobacco use: 55 Packs/Tins Daily: 0.5 Month/Year Tobacco Last Used: Quit Apr 2019 - Caffeine Use Caffeine Use: Reports: None Other Caffeine Use: 2/day - Alcohol Use Alcohol Use History: No - Recreational Drug Use Recreational Drug Use: No - Living Situation & Occupation Living situation: Reports: , with Spouse Occupation: Retired ED ROS GENERAL - Review of Systems Review Of Systems: Comprehensive ROS is negative, except as noted in HPI. ED EXAM, GI/ABD - Physical Exam Exam: See Below Exam Limited By: No Limitations General Appearance: Alert, WD/WN, No Apparent Distress Eyes: Bilateral: Normal Appearance, EOMI Ears: Normal External Exam, Hearing Grossly Normal Nose: Normal Inspection Throat/Mouth: Normal Inspection, Normal Lips, Normal Voice, No Airway Compromise Head: Atraumatic, Normocephalic Neck: Normal Inspection, Full Range of Motion Respiratory/Chest: No Respiratory Distress, No Accessory Muscle Use, Decreased Breath Sounds, Wheezing (faint, expiratory). No: Crackles, Rhonchi, Stridor, Prolonged Expiration Cardiovascular: Normal Peripheral Pulses, No Edema, No Gallop, No JVD, No Murmur, No Rub, Tachycardia, Irregularly Irregular GI/Abdominal Exam: Normal Bowel Sounds, Soft, No Organomegaly, No Distention, No Abnormal Bruit, No Mass, Tender (generalized, non-focal) (Male) Exam: Deferred Rectal (Males) Exam: Deferred Back Exam: Normal Inspection, Full Range of Motion, NT Extremities: Normal Inspection, Normal Range of Motion, No Pedal Edema, Normal Capillary Refill Neurological: Alert, Oriented, Normal Cognition, No Motor/Sensory Deficits Psychiatric: Normal Affect Skin Exam: Warm, Dry, Intact, Normal Color, No Rash EKG INTERPRETATION EKG Date: 12/10/19 Time: 21:03 Rhythm: A-Fib Rate (Beats/Min): 128 [place]: LAD-Left [place] Deviation (likely due to LPFB) P-Wave: Absent QRS: Other (Late transition) ST-T: Normal QT: Prolonged (QTc 502 ms) Comparison: Change From Previous EKG (QTC prolongation new since 08/20/2019) Course - Vital Signs Last Recorded V/S: Last Vital Signs Temp 36.2 C 12/10/19 20:25 Pulse 137 H 12/10/19 20:25 Resp 20 12/10/19 20:25 BP 115/85 12/10/19 20:25 Pulse Ox 79 L 12/10/19 20:25 - Orders/Labs/Meds Orders: Active Orders 24 hr Category Date Time Status Abdomen Pelvis w Cont [CT] Stat Exams 12/10/19 21:18 Taken Chest 2V [CR] Stat Exams 12/10/19 21:20 Taken Labs: Laboratory Tests 12/10/19 12/10/19 12/10/19 Range/Units 20:30 20:30 22:10 WBC 8.23 (4.23-9.07) K/mm3 RBC 4.45 L (4.63-6.08) M/mm3 Hgb 14.7 (13.7-17.5) gm/dl Hct 46.5 (40.1-51.0) % MCV 104.5 H (79.0-92.2) fl MCH 33.0 H (25.7-32.2) pg MCHC 31.6 L (32.2-35.5) g/dl RDW Std Deviation 52.6 H (35.1-43.9) fL Plt Count 204 (163-337) K/mm3 MPV 10.1 (9.4-12.3) fl Neutrophils % (Manual) 64 H (40-60) % Band Neutrophils % 0 (0-10) % Lymphocytes % (Manual) 18 L (20-40) % Atypical Lymphs % 0 % Monocytes % (Manual) 5 (2-10) % Eosinophils % (Manual) 13 H (0.8-7.0) % Basophils % (Manual) 0 L (0.2-1.2) Platelet Estimate Adequate Plt Morphology Comment Normal Macrocytosis 1+ slight Stomatocytes 1+ slight RBC Morph Comment Abnormal Sodium 140 (136-145) mEq/L Potassium 3.6 (3.5-5.1) mEq/L Chloride 99 (98-107) mEq/L Carbon Dioxide 36 H (21-32) mEq/L Anion Gap 8.6 (5-15) BUN 11 (7-18) mg/dL Creatinine 1.6 H (0.7-1.3) mg/dL Est Cr Clr Drug Dosing 38.21 mL/min Estimated GFR (MDRD) 43 (>60) mL/min BUN/Creatinine Ratio 6.9 L (14-18) Glucose 136 H (83-115) mg/dL Calcium 9.3 (8.5-10.1) mg/dL Total Bilirubin 0.7 (0.2-1.0) mg/dL AST 20 (15-37) U/L ALT 19 (16-63) U/L Alkaline Phosphatase 138 H (46-116) U/L Total Protein 7.1 (6.4-8.2) g/dl Albumin 3.4 (3.4-5.0) g/dl Globulin 3.7 gm/dL Albumin/Globulin Ratio 0.9 L (1-2) Lipase 64 L (73-393) U/L Urine Color (Yellow) Urine Appearance (Clear) Urine pH (5.0-8.0) Ur Specific [place] (1.005-1.030) Urine Protein (Negative) Urine Glucose (UA) (Negative) Urine Ketones (Negative) Urine Occult Blood (Negative) Urine Nitrite (Negative) Urine Bilirubin (Negative) Urine Urobilinogen (0.2-1.0) Ur Leukocyte Esterase (Negative) U Hyaline Cast (Auto) (0-5) /lpf Urine RBC (0-5) /hpf Urine WBC (0-5) /hpf Ur Squamous Epith Cells (0-5) /hpf Urine Bacteria (FEW) /hpf Urine Mucus (FEW) /hpf SARS Virus RNA (PCR) Negative (NEGATIVE) 12/11/19 Range/Units 00:55 WBC (4.23-9.07) K/mm3 RBC (4.63-6.08) M/mm3 Hgb (13.7-17.5) gm/dl Hct (40.1-51.0) % MCV (79.0-92.2) fl MCH (25.7-32.2) pg MCHC (32.2-35.5) g/dl RDW Std Deviation (35.1-43.9) fL Plt Count (163-337) K/mm3 MPV (9.4-12.3) fl Neutrophils % (Manual) (40-60) % Band Neutrophils % (0-10) % Lymphocytes % (Manual) (20-40) % Atypical Lymphs % % Monocytes % (Manual) (2-10) % Eosinophils % (Manual) (0.8-7.0) % Basophils % (Manual) (0.2-1.2) Platelet Estimate Plt Morphology Comment Macrocytosis Stomatocytes RBC Morph Comment Sodium (136-145) mEq/L Potassium (3.5-5.1) mEq/L Chloride (98-107) mEq/L Carbon Dioxide (21-32) mEq/L Anion Gap (5-15) BUN (7-18) mg/dL Creatinine (0.7-1.3) mg/dL Est Cr Clr Drug Dosing mL/min Estimated GFR (MDRD) (>60) mL/min BUN/Creatinine Ratio (14-18) Glucose (83-115) mg/dL Calcium (8.5-10.1) mg/dL Total Bilirubin (0.2-1.0) mg/dL AST (15-37) U/L ALT (16-63) U/L Alkaline Phosphatase (46-116) U/L Total Protein (6.4-8.2) g/dl Albumin (3.4-5.0) g/dl Globulin gm/dL Albumin/Globulin Ratio (1-2) Lipase (73-393) U/L Urine Color Yellow (Yellow) Urine Appearance Clear (Clear) Urine pH 5.5 (5.0-8.0) Ur Specific [place] 1.010 (1.005-1.030) Urine Protein Trace H (Negative) Urine Glucose (UA) Negative (Negative) Urine Ketones Negative (Negative) Urine Occult Blood Trace-intact H (Negative) Urine Nitrite Negative (Negative) Urine Bilirubin Negative (Negative) Urine Urobilinogen 0.2 (0.2-1.0) Ur Leukocyte Esterase Negative (Negative) U Hyaline Cast (Auto) 0-5 (0-5) /lpf Urine RBC 0-5 (0-5) /hpf Urine WBC 0-5 (0-5) /hpf Ur Squamous Epith Cells 0-5 (0-5) /hpf Urine Bacteria Few (FEW) /hpf Urine Mucus Few (FEW) /hpf SARS Virus RNA (PCR) (NEGATIVE) Meds: Medications Discontinued Medications Generic Name Dose Route Start Last Admin Trade Name Noel PRN Reason Stop Dose Admin Diatrizoate Meglum/Diatrizoate Sod 120 ml 12/11/19 02:02 12/11/19 02:33 Gastrografin 37% PO 12/11/19 02:03 120 ml ONETIME ONE Administration Hydromorphone HCl 1 mg 12/10/19 21:18 12/10/19 21:33 Dilaudid IVPUSH 12/10/19 21:19 1 mg ONETIME STA Administration Sodium Chloride 1,000 mls @ 60 mls/hr 12/10/19 21:30 12/10/19 21:31 Normal Saline IV 60 mls/hr ASDIRECTED SANTOS Administration Iopamidol 100 ml 12/11/19 02:02 12/11/19 02:32 Isovue-300 (61%) IVPUSH 12/11/19 02:03 100 ml ONETIME ONE Administration Ondansetron HCl 4 mg 12/10/19 21:18 12/10/19 21:31 Zofran IVPUSH 12/10/19 21:19 4 mg ONETIME ONE Administration Sodium Chloride 10 ml 12/11/19 02:03 12/11/19 02:33 Saline Flush FLUSH 12/11/19 02:04 10 ml ONETIME ONE Administration - Re-Assessments/Exams Free Text/Narrative Re-Assessment/Exam: 12/10/19 21:22 As above, the patient is complaining of continued generalized abdominal pain with vomiting since 12/01/2019. No recent fever or cough, but he reports increased dyspnea on exertion, and his oxygen saturation is noted to be 79% on room air here in the ED. He is in atrial fibrillation with RVR. On examination, he has some expiratory wheezing and generalized, non-focal abdominal tenderness. I have ordered a work-up to include blood work, a urinalysis, a chest x-ray, and a CT scan of his abdomen and pelvis with oral and IV contrast. In addition, because his tested positive for COVID-19 few weeks ago, and he is hypoxemic here tonight and complaining of generalized abdominal pain, I have ordered a test for the SARS-CoV-2 virus. In the meantime, the patient will be given IV Dilaudid, IV Zofran, and gentle IV fluid (given his history of CHF and current hypoxemia). The patient requested Dilaudid by name 4 times during my interview. 12/10/19 23:53 The patient's CBC is unremarkable. His CMP is remarkable for a bicarbonate elevated at 36, and a Cr elevated at 1.6 with a BUN normal at 11. His blood glucose is mildly elevated at 136, and his alkaline phosphatase is slightly elevated at 138, with the remainder of his CMP being unremarkable. His lipase level is within normal limits at 64. His test for the SARS-CoV-2 virus returned negative. Two-view chest radiograph reviewed. The cardiac silhouette is reversed, consistent with dextrocardia, and there is cardiomegaly. No pulmonary vascular congestion. No pleural effusions. No focal infiltrate although there is a small amount of atelectasis noted off the right lateral aspect of the heart. No pneumothorax. Formal read per the Radiologist pending. CT of the abdomen and pelvis with oral and IV contrast is read by [facility] as "Colonic diverticulosis without diverticulitis. No evidence of bowel obstruction. The patient has not yet provided a urine sample. 12/11/19 01:48 The patient's urinalysis is unremarkable. 12/11/19 02:04 Test results discussed with the patient. He is already up and dressed, and does not appear to be in any discomfort. As above, with the exception of his chronic renal insufficiency, today's work-up is entirely unremarkable, and does not explain the cause of his pain. I recommended that if his symptoms persist, that he follow-up with his PCP at the [facility]. Departure - Departure Time of Disposition: 02:05 Disposition: Home, Self-Care 01 Condition: Good Clinical Impression: Abdominal pain of unknown etiology, Paroxysmal atrial fibrillation with RVR Chronic renal insufficiency Qualifiers: Chronic kidney disease stage: unspecified stage Qualified Code(s): N18.9 - Chronic kidney disease, unspecified - Discharge Information *PRESCRIPTION DRUG MONITORING PROGRAM REVIEWED*: Not Applicable *COPY OF PRESCRIPTION DRUG MONITORING REPORT IN PATIENT DANITZA: Not Applicable Instructions: Abdominal Pain, Adult Referrals: Ana Benjamin MD [Primary Care Provider] - Forms: ED Department Discharge Additional Instructions: You were seen in the emergency room for generalized abdominal pain and vomiting since 12/01/2019. Work-up in the ER included blood work, a urinalysis, a chest x-ray, CT scan of your abdomen and pelvis with oral and IV contrast, a test for the SARS-CoV-2 virus, and an ECG. Your blood work shows that you have chronic renal insufficiency, otherwise, your work-up was entirely unremarkable, and does not explain the cause of your symptoms. If your symptoms persist, we recommend that you follow-up with your PCP, Dr. Ana Benjamin, at the [facility]. If any other problems, please do not hesitate to return to the ER. Sepsis Event Note (ED) - Evaluation Sepsis Screening Result: No Definite Risk - Focused Exam Vital Signs: Vital Signs Temp Pulse Resp BP Pulse Ox 12/10/19 20:25 36.2 C 137 H 20 115/85 79 L - My Orders Last 24 Hours: My Active Orders 12/10/19 21:18 Abdomen Pelvis w Cont [CT] Stat 12/10/19 21:20 Chest 2V [CR] Stat - Assessment/Plan Last 24 Hours: My Active Orders 12/10/19 21:18 Abdomen Pelvis w Cont [CT] Stat 12/10/19 21:20 Chest 2V [CR] Stat
[2019-12-10] MEDS ORDERED: Sodium Chloride 0.9% 1,000 ML IV SCH (21:30)
[2019-12-11] MEDS ORDERED: Iopamidol 612 MG/ML 100 ML Bottle IVPUSH ONE (02:02)
[2019-12-11] MEDS ORDERED: Diatrizoate Meglumine/Diatrizoate Sodium 37% 120 ML Bottle PO ONE (02:02)
[2019-12-11] MEDS ORDERED: Sodium Chloride 0.9% 10 ML Syringe FLUSH ONE (02:03)
--- NOTE | 2019-12-12 11:03 | CR ---
Chest: 2 views of the chest were obtained. Comparison: Prior chest x-ray of 04/14/19. Heart is enlarged. Tortuous thoracic aorta is noted. Right heart prominence is seen which is stable. Lungs are clear with no acute parenchymal change. Bony structures appear within normal limits for the patient's age. Impression: 1. Findings as noted above. 2. Nothing acute is seen. Diagnostic code #2 This report was dictated in MDT
--- NOTE | 2019-12-12 11:03 | CT ---
CT abdomen and pelvis Technique: Multiple axial sections were obtained from slightly below the top of the liver inferiorly through the pubic symphysis. Intravenous and oral contrast was utilized. Delayed images were obtained through the bladder. Reconstructed coronal and sagittal images were obtained. Comparison: Prior CT abdomen and pelvis exam of 09/07/17. Findings: Visualized lung bases show nothing acute. Visualized portions of the liver show no focal abnormality. Spleen appears within normal limits. Gallbladder contains no calcified gallstones. Adrenal glands show a very slight nodularity on the right side believed to be stable. Pancreas shows no discrete abnormality. Kidneys show evidence of small cysts. Largest cyst measures approximately 2.0 cm. Delayed images shows contrast within the bladder. Distal aorta shows minimal aneurysmal dilatation measuring 2.5 cm in AP dimension which is felt to be fairly stable. Atherosclerotic change is noted into the iliac vessels. No retroperitoneal adenopathy or mesenteric abnormalities are seen. Numerous sigmoid diverticuli are seen. Lesser diverticuli within the descending colon is noted. No definite findings of diverticulitis are seen. Artifact is noted within the pelvis compatible with bilateral hip prosthesis. No bowel dilatation is appreciated. Appendix is not visualized. Bone window settings were reviewed. Mild degenerative change is scattered within the spine. Impression: 1. Numerous findings as noted above. 2. Nothing acute is appreciated. Diagnostic code #3 This report was dictated in MDT I agree with preliminary report from [facility], finalized on 12/11/19, 12:47 AM Central Daylight Time
== END 2019-12-11 02:16 | disposition home or self-care (01) ==
LOC: JD.ED 20:20
DX: R10.84 Generalized abdominal pain (principal); I48.91 Unspecified atrial fibrillation; I25.10 Atherosclerotic heart disease of native coronary artery without angina pectoris; E78.00 Pure hypercholesterolemia, unspecified; J44.9 Chronic obstructive pulmonary disease, unspecified; I13.0 Hypertensive heart and chronic kidney disease with heart failure and stage 1 through stage 4 chronic kidney disease, or unspecified chronic kidney disease; N18.9 Chronic kidney disease, unspecified; I50.9 Heart failure, unspecified; E66.9 Obesity, unspecified; K21.9 Gastro-esophageal reflux disease without esophagitis; F32.9 Major depressive disorder, single episode, unspecified; Z79.01 Long term (current) use of anticoagulants; Z79.899 Other long term (current) drug therapy; Z88.6 Allergy status to analgesic agent; Z91.018 Allergy to other foods; Z88.5 Allergy status to narcotic agent; Z88.8 Allergy status to other drugs, medicaments and biological substances; Z87.891 Personal history of nicotine dependence; Z20.828 Contact with and (suspected) exposure to other viral communicable diseases
CPT/HCPCS: 36415; 71046; 74177; 80053; 81001; 83690; 85007; 85027; 93005; 96361; 96374; 96375; 99285; J1170; J2405; J7030; Q9963; Q9967; U0002; 93010; 99284

== ENCOUNTER 2020-03-08 13:35 | Emergency (ER) | payer MEDICARE, OTHER ==
[2020-03-08 13:47] VITALS: BP 170/125; PULSE 114
[2020-03-08] MEDS ORDERED: Sodium Chloride 0.9% 10 ML Syringe FLUSH PRN (13:47)
[2020-03-08] MEDS ORDERED: methylPREDNISolone Sodium Succinate 125 MG/2 ML SDV IVPUSH ONE (13:49)
[2020-03-08] MEDS ORDERED: Albuterol 6.7 GM Inhaler INH ONE (13:49)
--- NOTE | 2020-03-08 14:34 | CR ---
Chest: Portable view of the chest was obtained. Comparison: Prior chest x-ray of 12/10/19. Findings: Heart and mediastinum: Abnormal heart is seen. Findings are stable from prior study with elevation of the right margin. Upper mediastinum is normal. Lungs: No acute parenchymal changes seen. There is slight density within the lateral left costophrenic angle most likely due to minimal atelectasis. Bony structures: No acute bony abnormality is appreciated. Impression: 1. Stable findings as described above. 2. Minimal atelectasis within the left base. 3. Nothing acute is otherwise seen. Diagnostic code #2
--- NOTE | 2020-03-08 15:21 | EDM.PDOC ---
ED HPI GENERAL MEDICAL PROBLEM - General Chief Complaint: Respiratory Problem Stated Complaint: SOB Time Seen by Provider: 03/08/20 13:42 Source of Information: Reports: Patient History Limitations: Reports: No Limitations - History of Present Illness INITIAL COMMENTS - FREE TEXT/NARRATIVE: The patient presents with a cough and shortness of breath. This has been going on for a few days. Her has a history of COPD. He also has no sense of taste and smell. He says this can happen sometimes when he gets a COPD exacerbation. When he goes on steroids and antibiotics that comes back. He talked to the OR and they recommend he come here and get evaluated. He has not been out of the house for months. His does go to work and them home multiple times per week. He does not smoke any more. He has no chest pain, abdominal pain, nausea or vomiting. He does cough up some phlegm at times. Onset: Gradual Duration: Day(s): Severity: Moderate Improves with: Reports: None Worsens with: Reports: None Associated Symptoms: Reports: Cough, Shortness of Breath. Denies: Chest Pain, Fever/Chills, Headaches, Nausea/Vomiting - Related Data Allergies Allergy/AdvReac Type Severity Reaction Status Date / Time acetaminophen [From Tylenol] Allergy Airway Verified 03/08/20 14:01 Tightness aspirin Allergy Airway Verified 03/08/20 14:01 Tightness horseradish Allergy Airway Verified 03/08/20 14:01 Tightness ibuprofen Allergy Airway Verified 03/08/20 14:01 Tightness meperidine HCl [From Demerol] Allergy Airway Verified 03/08/20 14:01 Tightness morphine Allergy Itching Verified 03/08/20 14:01 oxycodone Allergy Rash Verified 03/08/20 14:01 sumatriptan [From Imitrex] Allergy Cannot Verified 03/08/20 14:01 Remember sumatriptan succinate Allergy Cannot Verified 03/08/20 14:01 [From Imitrex] Remember haloperidol [From Haldol] AdvReac Change Verified 03/08/20 14:01 Mental Status haloperidol lactate AdvReac Change Verified 03/08/20 14:01 [From Haldol] Mental Status ketorolac tromethamine AdvReac Change Verified 03/08/20 14:01 [From Toradol] Mental Status antihistamines Allergy Airway Uncoded 12/10/19 20:30 Tightness Home Meds: Home Meds Furosemide [Lasix] 40 mg PO DAILY 04/12/14 [History] PARoxetine HCl [Paxil] 20 mg PO DAILY 04/12/14 [History] Potassium Chloride 10 meq PO BID 04/12/14 [History] Tamsulosin HCl [Flomax] 0.4 mg PO DAILY 04/12/14 [History] Tiotropium [Spiriva HandiHaler] 1 cap INH DAILY 04/12/14 [History] Apixaban [Eliquis] 5 mg PO BID 01/23/16 [History] ClonazePAM [KlonoPIN] 0.5 mg PO BEDTIME 10/18/16 [History] Ipratropium [place] 1 spray NASBOTH BID PRN 10/18/16 [History] Cholecalciferol (Vitamin D3) [Vitamin D] 1,000 unit PO BID 04/13/17 [History] Mirtazapine 30 mg PO BEDTIME 04/13/17 [History] Magnesium Oxide 420 mg PO BEDTIME 02/19/18 [History] Budesonide/Formoterol [Symbicort 160-4.5 MCG] 2 puff INH DAILY 04/18/19 [History] Verapamil HCl [Verapamil Sr] 120 mg PO BID 08/19/19 [History] Simvastatin 10 mg PO BEDTIME 08/20/19 [History] guaiFENesin [Guaifenesin] 400 mg PO BID 08/20/19 [History] Levalbuterol Tartrate [Xopenex HFA] 1 puff INH Q6H #1 inhaler 08/22/19 [Rx] Ondansetron [Zofran ODT] 4 mg PO Q6H PRN #20 tab.dis 12/05/19 [Rx] Cyanocobalamin (Vitamin B-12) [Vitamin B-12] 1 tab PO DAILY 12/10/19 [History] Famotidine 40 mg PO DAILY 12/10/19 [History] Finasteride 5 mg PO DAILY 12/10/19 [History] Lactobacillus Acidophilus [Acidophilus] 1 tab PO DAILY 12/10/19 [History] levalbuterol HCL [Xopenex] 1.25 mg NEB QID 12/10/19 [History] Azithromycin [Zithromax] 250 mg PO DAILY #6 tab 03/08/20 [Rx] predniSONE [Prednisone] 40 mg PO DAILY #10 tablet 03/08/20 [Rx] Past Medical History HEENT History: Reports: Impaired Vision Other HEENT History: upper/lower dentures Cardiovascular History: Reports: Afib, CAD, Heart Failure, High Cholesterol, Hypertension, [place], Other (See Below) Other Cardiovascular History: stents in 1999, 5 [place] Respiratory History: Reports: COPD, Sleep Apnea Gastrointestinal History: Reports: GERD, PUD Genitourinary History: Reports: BPH, Chronic Renal Insuffiency Musculoskeletal History: Reports: None Neurological History: Reports: Headaches, Chronic Other Neuro History: patient reports minimal CARDENAS, will continue to monitor. Psychiatric History: Reports: Depression, PTSD Endocrine/Metabolic History: Reports: Obesity/BMI 30+, Other (See Below) Other Endocrine/Metabolic History: boardline diabetic- checks AM BS daily Hematologic History: Reports: B12 Deficiency - Infectious Disease History Infectious Disease History: Reports: Chicken Pox, Measles, Mumps - Past Surgical History Head Surgeries/Procedures: Reports: None HEENT Surgical History: Reports: Cataract Surgery, Naso-Sinus Surgery Other HEENT Surgeries/Procedures: OU Cardiovascular Surgical History: Reports: Coronary Artery Stent Other Cardiovascular Surgeries/Procedures: x3 Respiratory Surgical History: Reports: None GI Surgical History: Reports: Appendectomy, Colonoscopy, EGD Male Surgical History: Reports: Other (See Below) Other Male Surgeries/Procedures: testicle removed Endocrine Surgical History: Reports: None Neurological Surgical History: Reports: None Musculoskeletal Surgical History: Reports: Hip Replacement Other Musculoskeletal Surgeries/Procedures:: bilateral hip replacements Oncologic Surgical History: Reports: Other (See Below) Social & Family History - Family History Family Medical History: No Pertinent Family History Oncologic: Reports: Leukemia Other Oncologic Family History: Brother - Tobacco Use Tobacco Use Status *Q: Former Tobacco User Used Tobacco, but Quit: Yes Month/Year Tobacco Last Used: 2005 - Caffeine Use Caffeine Use: Reports: Soda Other Caffeine Use: 2/day - Recreational Drug Use Recreational Drug Use: No - Living Situation & Occupation Living situation: Reports: , with Spouse Occupation: Retired ED ROS GENERAL - Review of Systems Review Of Systems: See Below Constitutional: Reports: No Symptoms HEENT: Reports: No Symptoms Respiratory: Reports: Shortness of Breath, Cough, Sputum Cardiovascular: Reports: No Symptoms Endocrine: Reports: No Symptoms GI/Abdominal: Reports: No Symptoms : Reports: No Symptoms Musculoskeletal: Reports: No Symptoms ED EXAM, GENERAL - Physical Exam Exam: See Below Exam Limited By: No Limitations General Appearance: Alert, No Apparent Distress Ears: Normal External Exam Nose: Normal Inspection Head: Atraumatic, Normocephalic Neck: Normal Inspection Respiratory/Chest: No Respiratory Distress, Decreased Breath Sounds, Wheezing Cardiovascular: Regular Rate, Rhythm, No Edema, No Murmur GI/Abdominal: Soft, Non-Tender, No Organomegaly, No Mass Back Exam: Normal Inspection Extremities: Normal Inspection #1 Interpretation EKG Date: 03/08/20 Time: 14:01 Rhythm: A-Fib Rate (Beats/Min): 104 [place]: Normal P-Wave: Absent QRS: Normal ST-T: Normal QT: Normal Course - Vital Signs Last Recorded V/S: Last Vital Signs Temp 98.3 F 03/08/20 13:41 Pulse 114 H 03/08/20 13:41 Resp 25 H 03/08/20 13:41 BP 170/125 H 03/08/20 13:41 Pulse Ox 94 L 03/08/20 14:03 - Orders/Labs/Meds Orders: Active Orders 24 hr Category Date Time Status Cardiac Monitoring [RC] . DIRECTED Care 03/08/20 13:47 Active EKG Documentation Completion [RC] STAT Care 03/08/20 13:48 Active Oxygen Therapy [RC] PRN Care 03/08/20 13:47 Active Peripheral IV Care [RC] . DIRECTED Care 03/08/20 13:48 Active RT Post Treatment Assessment [RC] Click to Edit Care 03/08/20 13:49 Active RT Pre-Treatment Assessment [RC] Click to Edit Care 03/08/20 13:49 Active Sodium Chloride 0.9% [Saline Flush] Med 03/08/20 13:47 Active 10 ml FLUSH ASDIRECTED PRN Peripheral IV Insertion Adult [OM.PC] Stat Oth 03/08/20 13:47 Ordered Medication Orders Sodium Chloride (Saline Flush) 10 ml FLUSH ASDIRECTED PRN PRN Reason: Keep Vein Open Last Admin: 03/08/20 14:33 Dose: 10 ml Documented by: TERRANCE Labs: Laboratory Tests 03/08/20 03/08/20 03/08/20 Range/Units 14:30 14:30 14:30 WBC 9.10 H (4.23-9.07) K/mm3 RBC 4.48 L (4.63-6.08) M/mm3 Hgb 14.7 (13.7-17.5) gm/dl Hct 44.3 (40.1-51.0) % MCV 98.9 H D (79.0-92.2) fl MCH 32.8 H (25.7-32.2) pg MCHC 33.2 (32.2-35.5) g/dl RDW Std Deviation 57.0 H (35.1-43.9) fL Plt Count 227 (163-337) K/mm3 MPV 9.2 L (9.4-12.3) fl Neut % (Auto) 78.6 H (34.0-67.9) % Lymph % (Auto) 12.5 L (21.8-53.1) % [place] % (Auto) 6.7 (5.3-12.2) % Eos % (Auto) 1.9 (0.8-7.0) Baso % (Auto) 0.2 (0.1-1.2) % Neut # (Auto) 7.15 H (1.78-5.38) K/mm3 Lymph # (Auto) 1.14 L (1.32-3.57) K/mm3 [place] # (Auto) 0.61 (0.30-0.82) K/mm3 Eos # (Auto) 0.17 (0.04-0.54) K/mm3 Baso # (Auto) 0.02 (0.01-0.08) K/mm3 Sodium 138 (136-145) mEq/L Potassium 4.1 (3.5-5.1) mEq/L Chloride 101 (98-107) mEq/L Carbon Dioxide 29 (21-32) mEq/L Anion Gap 12.1 (5-15) BUN 17 (7-18) mg/dL Creatinine 1.5 H (0.7-1.3) mg/dL Est Cr Clr Drug Dosing 39.29 mL/min Estimated GFR (MDRD) 46 (>60) mL/min BUN/Creatinine Ratio 11.3 L (14-18) Glucose 119 H (83-115) mg/dL Lactic Acid (0.4-2.0) mmol/L Calcium 9.3 (8.5-10.1) mg/dL Total Bilirubin 0.5 (0.2-1.0) mg/dL AST 12 L (15-37) U/L ALT 19 (16-63) U/L Alkaline Phosphatase 134 H (46-116) U/L Troponin I < 0.017 (0.00-0.056) ng/mL C-Reactive Protein 1.0 (<1.0) mg/dL NT-Pro-B Natriuret Pep 749 H (0-125) pg/mL Total Protein 7.6 (6.4-8.2) g/dl Albumin 3.6 (3.4-5.0) g/dl Globulin 4.0 gm/dL Albumin/Globulin Ratio 0.9 L (1-2) Influenza Type A RNA (NEGATIVE) Influenza Type B RNA (NEGATIVE) SARS-CoV-2 RNA (JOHN) (NEGATIVE) 03/08/20 03/08/20 Range/Units 14:41 14:50 WBC (4.23-9.07) K/mm3 RBC (4.63-6.08) M/mm3 Hgb (13.7-17.5) gm/dl Hct (40.1-51.0) % MCV (79.0-92.2) fl MCH (25.7-32.2) pg MCHC (32.2-35.5) g/dl RDW Std Deviation (35.1-43.9) fL Plt Count (163-337) K/mm3 MPV (9.4-12.3) fl Neut % (Auto) (34.0-67.9) % Lymph % (Auto) (21.8-53.1) % [place] % (Auto) (5.3-12.2) % Eos % (Auto) (0.8-7.0) Baso % (Auto) (0.1-1.2) % Neut # (Auto) (1.78-5.38) K/mm3 Lymph # (Auto) (1.32-3.57) K/mm3 [place] # (Auto) (0.30-0.82) K/mm3 Eos # (Auto) (0.04-0.54) K/mm3 Baso # (Auto) (0.01-0.08) K/mm3 Sodium (136-145) mEq/L Potassium (3.5-5.1) mEq/L Chloride (98-107) mEq/L Carbon Dioxide (21-32) mEq/L Anion Gap (5-15) BUN (7-18) mg/dL Creatinine (0.7-1.3) mg/dL Est Cr Clr Drug Dosing mL/min Estimated GFR (MDRD) (>60) mL/min BUN/Creatinine Ratio (14-18) Glucose (83-115) mg/dL Lactic Acid 1.4 (0.4-2.0) mmol/L Calcium (8.5-10.1) mg/dL Total Bilirubin (0.2-1.0) mg/dL AST (15-37) U/L ALT (16-63) U/L Alkaline Phosphatase (46-116) U/L Troponin I (0.00-0.056) ng/mL C-Reactive Protein (<1.0) mg/dL NT-Pro-B Natriuret Pep (0-125) pg/mL Total Protein (6.4-8.2) g/dl Albumin (3.4-5.0) g/dl Globulin gm/dL Albumin/Globulin Ratio (1-2) Influenza Type A RNA Negative (NEGATIVE) Influenza Type B RNA Negative (NEGATIVE) SARS-CoV-2 RNA (JOHN) Negative (NEGATIVE) Meds: Medications Generic Name Dose Route Start Last Admin Trade Name Estivenq PRN Reason Stop Dose Admin Sodium Chloride 10 ml 03/08/20 13:47 03/08/20 14:33 Saline Flush FLUSH 10 ml ASDIRECTED PRN Administration Keep Vein Open Discontinued Medications Generic Name Dose Route Start Last Admin Trade Name Frebenjamin PRN Reason Stop Dose Admin Albuterol 0 gm 03/08/20 13:49 03/08/20 14:37 Proventil Hfa INH 03/08/20 13:50 Not Given ONETIME ONE Methylprednisolone Sodium Succinate 125 mg 03/08/20 13:49 03/08/20 14:33 Solu-Medrol IVPUSH 03/08/20 13:50 125 mg ONETIME ONE Administration - Re-Assessments/Exams Free Text/Narrative Re-Assessment/Exam: 03/08/20 15:23 I ordered an IV saline lock, oxygen, albuterol 2 puffs, solu-medrol 125mg IV, labs, CXR and COVID 19. 03/08/20 16:18 His EKG shows atrial fibrillation without acute changes. His CXR shows stable findings. Minimal atelectasis within the left base. Nothing acute is otherwise seen. His WBC was elevated at 9.1. His creatinine is elevated at 1.5. His troponin is negative. His BNP is elevated at 749. His CRP is negative. His flu and COVID 19 are negative. I will get him on some prednisone and zithromax. Departure - Departure Time of Disposition: 16:25 Disposition: Home, Self-Care 01 Condition: Good Clinical Impression: COPD exacerbation - Discharge Information *PRESCRIPTION DRUG MONITORING PROGRAM REVIEWED*: Not Applicable *COPY OF PRESCRIPTION DRUG MONITORING REPORT IN PATIENT DANITZA: Not Applicable Prescriptions: predniSONE [Prednisone] 40 mg PO DAILY #10 tablet Azithromycin [Zithromax] 250 mg PO DAILY #6 tab Referrals: Ana Benjamin MD [Primary Care Provider] - 1 Week Forms: ED Department Discharge Additional Instructions: Take your medications as prescribed. I have also prescribed prednisone 40mg daily for 5 days and azithromycin daily for 5 days. Follow up with your doctor. Please return if you are worse. Sepsis Event Note (ED) - Evaluation Sepsis Screening Result: Possible Sepsis Risk - Focused Exam Vital Signs: Vital Signs Temp Pulse Resp BP Pulse Ox Pulse Ox 03/08/20 14:03 94 L 03/08/20 13:41 98.3 F 114 H 25 H 170/125 H 84 L - My Orders Last 24 Hours: My Active Orders 03/08/20 13:47 Cardiac Monitoring [RC] . DIRECTED Oxygen Therapy [RC] PRN Sodium Chloride 0.9% [Saline Flush] 10 ml FLUSH ASDIRECTED PRN Peripheral IV Insertion Adult [OM.PC] Stat 03/08/20 13:48 EKG Documentation Completion [RC] STAT Peripheral IV Care [RC] . DIRECTED 03/08/20 13:49 RT Post Treatment Assessment [RC] Click to Edit RT Pre-Treatment Assessment [RC] Click to Edit - Assessment/Plan Last 24 Hours: My Active Orders 03/08/20 13:47 Cardiac Monitoring [RC] . DIRECTED Oxygen Therapy [RC] PRN Sodium Chloride 0.9% [Saline Flush] 10 ml FLUSH ASDIRECTED PRN Peripheral IV Insertion Adult [OM.PC] Stat 03/08/20 13:48 EKG Documentation Completion [RC] STAT Peripheral IV Care [RC] . DIRECTED 03/08/20 13:49 RT Post Treatment Assessment [RC] Click to Edit RT Pre-Treatment Assessment [RC] Click to Edit
[2020-03-08 15:33] LABS: CORONAVIRUS COVID-19 NAA NEGATIVE (NEGATIVE)
[2020-03-08] MEDS ORDERED: Azithromycin 250 MG Tab PO ONE (16:17)
== END 2020-03-08 16:43 | disposition home or self-care (01) ==
LOC: JD.ED 13:35
DX: J44.1 Chronic obstructive pulmonary disease with (acute) exacerbation (principal); I48.91 Unspecified atrial fibrillation; I25.10 Atherosclerotic heart disease of native coronary artery without angina pectoris; I13.0 Hypertensive heart and chronic kidney disease with heart failure and stage 1 through stage 4 chronic kidney disease, or unspecified chronic kidney disease; N18.9 Chronic kidney disease, unspecified; I50.9 Heart failure, unspecified; E78.00 Pure hypercholesterolemia, unspecified; I25.2 Old myocardial infarction; K21.9 Gastro-esophageal reflux disease without esophagitis; F32.9 Major depressive disorder, single episode, unspecified; N40.0 Benign prostatic hyperplasia without lower urinary tract symptoms; E66.9 Obesity, unspecified; Z68.29 Body mass index [BMI] 29.0-29.9, adult; Z87.891 Personal history of nicotine dependence; Z88.6 Allergy status to analgesic agent; Z88.8 Allergy status to other drugs, medicaments and biological substances; Z91.048 Other nonmedicinal substance allergy status; Z91.018 Allergy to other foods; Z88.5 Allergy status to narcotic agent; Z79.01 Long term (current) use of anticoagulants; Z79.899 Other long term (current) drug therapy; Z20.828 Contact with and (suspected) exposure to other viral communicable diseases
CPT/HCPCS: 0240U; 36415; 71045; 71045-26; 80053; 83605; 83880; 84484; 85025; 86140; 93005; 93010; 94762; 96374; 99284; 99285-25; A9270-GY; J2930

== ENCOUNTER 2020-04-21 03:11 | Emergency (ER) | payer OTHER ==
[2020-04-21 03:21] VITALS: BP 130/83; PULSE 93
[2020-04-21] MEDS ORDERED: HYDROmorphone 1 MG/ML Syringe IVPUSH ONE ×2 (03:46→05:24)
[2020-04-21] MEDS ORDERED: Ondansetron 4 MG/2 ML SDV IVPUSH ONE (03:51)
--- NOTE | 2020-04-21 03:52 | EDM.PDOC ---
<Sam Hope - Last Filed: 04/21/20 13:11> ED HPI GENERAL MEDICAL PROBLEM - General Chief Complaint: Respiratory Problem Stated Complaint: [facility] Time Seen by Provider: 04/21/20 03:22 - Related Data Allergies Allergy/AdvReac Type Severity Reaction Status Date / Time acetaminophen [From Tylenol] Allergy Airway Verified 03/08/20 14:01 Tightness aspirin Allergy Airway Verified 03/08/20 14:01 Tightness horseradish Allergy Airway Verified 03/08/20 14:01 Tightness hydromorphone [From Dilaudid] Allergy Respiratory Verified 04/21/20 13:36 Distress ibuprofen Allergy Airway Verified 03/08/20 14:01 Tightness meperidine HCl [From Demerol] Allergy Airway Verified 03/08/20 14:01 Tightness morphine Allergy Itching Verified 03/08/20 14:01 oxycodone Allergy Rash Verified 03/08/20 14:01 sumatriptan [From Imitrex] Allergy Cannot Verified 03/08/20 14:01 Remember sumatriptan succinate Allergy Cannot Verified 03/08/20 14:01 [From Imitrex] Remember haloperidol [From Haldol] AdvReac Change Verified 03/08/20 14:01 Mental Status haloperidol lactate AdvReac Change Verified 03/08/20 14:01 [From Haldol] Mental Status ketorolac tromethamine AdvReac Change Verified 03/08/20 14:01 [From Toradol] Mental Status antihistamines Allergy Airway Uncoded 12/10/19 20:30 Tightness Home Meds: Home Meds Furosemide [Lasix] 40 mg PO DAILY 04/12/14 [History] PARoxetine HCl [Paxil] 20 mg PO DAILY 04/12/14 [History] Potassium Chloride 10 meq PO BID 04/12/14 [History] Tamsulosin HCl [Flomax] 0.4 mg PO DAILY 04/12/14 [History] Tiotropium [Spiriva HandiHaler] 1 cap INH DAILY 04/12/14 [History] Apixaban [Eliquis] 5 mg PO BID 01/23/16 [History] ClonazePAM [KlonoPIN] 0.5 mg PO BEDTIME 10/18/16 [History] Ipratropium [place] 1 spray NASBOTH BID PRN 10/18/16 [History] Cholecalciferol (Vitamin D3) [Vitamin D] 1,000 unit PO BID 04/13/17 [History] Mirtazapine 30 mg PO BEDTIME 04/13/17 [History] Magnesium Oxide 420 mg PO BEDTIME 02/19/18 [History] Budesonide/Formoterol [Symbicort 160-4.5 MCG] 2 puff INH DAILY 04/18/19 [History] Verapamil HCl [Verapamil Sr] 120 mg PO BID 08/19/19 [History] Simvastatin 10 mg PO BEDTIME 08/20/19 [History] guaiFENesin [Guaifenesin] 400 mg PO BID 08/20/19 [History] Levalbuterol Tartrate [Xopenex HFA] 1 puff INH Q6H #1 inhaler 08/22/19 [Rx] Ondansetron [Zofran ODT] 4 mg PO Q6H PRN #20 tab.dis 12/05/19 [Rx] Cyanocobalamin (Vitamin B-12) [Vitamin B-12] 1 tab PO DAILY 12/10/19 [History] Famotidine 40 mg PO DAILY 12/10/19 [History] Finasteride 5 mg PO DAILY 12/10/19 [History] Lactobacillus Acidophilus [Acidophilus] 1 tab PO DAILY 12/10/19 [History] levalbuterol HCL [Xopenex] 1.25 mg NEB QID 12/10/19 [History] Azithromycin [Zithromax] 250 mg PO DAILY #6 tab 03/08/20 [Rx] predniSONE [Prednisone] 40 mg PO DAILY #10 tablet 03/08/20 [Rx] Course - Re-Assessments/Exams Free Text/Narrative Re-Assessment/Exam: 04/21/20 09:41. Called to see patient a few minutes ago, when nurse went in to check on him he was unresponsive to verbal or sternal rub, breathing OK, good BP, sinus rythm in the 90's, but for me as well unresponsive to verbal and hard sternal rub. Pupils pinpoint restricted, equal. No obvious seizure activity, eyes not deviated either direction. Keppra 500 mg IV ordered. Upon review of meds given I see he had 2 doses of dilaudid IV about 1 hr apart several hrs ago. Have ordered ABG's and also Narcan 2 mg IV. 09:44. woke up within 1 minute of narcan IV. Feels short of breath, no other compaints. ABG's show ph 7.15, C02 94.4, 58, 31.5. Have ordered duoneb, will start on Bipap, 03/11. 04/21/20 10:19. Sats 92, alert, tolerating bipap OK. will repeat AGB's in about 30 minutes. 04/21/20 10:50. Still tolerating BiPap OK, alert, sats 92 %, will check ABG's as planned. It is anticipated he will need to be admitted. 04/21/20 12:35. We are on ICU diversion. Dr Rincon, Hospitalist reluctant to admit to floor with no ICU beds available if he were to not do well or "crash". His hx is complicated and current medical status complicated with quite severe underlying COPD and heart disease. Will transfer to [facility] ED, Dr Solis accepting ED Phys. He will go by ground ambulance. Departure - Departure Time of Disposition: 12:25 Disposition: DC/Tfer to Acute Hospital 02 Condition: Serious Clinical Impression: Respiratory acidosis, Atrial fibrillation with controlled ventricular response Opiate or related narcotic overdose Qualifiers: Encounter type: initial encounter Injury intent: accidental or unintentional Qualified Code(s): T40.601A - Poisoning by unspecified narcotics, accidental (unintentional), initial encounter COPD (chronic obstructive pulmonary disease) Qualifiers: COPD type: unspecified COPD Qualified Code(s): J44.9 - Chronic obstructive pulmonary disease, unspecified - Discharge Information Referrals: PCP,Unknown [Ordering Only Provider] - Forms: ED Department Discharge <Jace Duvall - Last Filed: 04/21/20 19:08> ED HPI GENERAL MEDICAL PROBLEM - General Source of Information: Reports: Patient, Family (Niece) History Limitations: Reports: No Limitations - History of Present Illness INITIAL COMMENTS - FREE TEXT/NARRATIVE: Mr. Barclay is a pleasant 69-year-old gentleman who is now brought to the ED by EMS with a number of complaints. He states that he has had a cough productive of clear or whitish sputum for the past month. He also reports a loss of taste and smell about that time. He reports dyspnea, especially with exertion, for the past 3 weeks. He states that he was seen at the [facility] this past 04/16/2020, and that he was tested for COVID-19, with a negative test being reported on 04/18/2020. He states that he was diagnosed with a sinus infection and prescribed Augmentin, which she has been taking as prescribed. He states that his symptoms have not improved. The patient states that he then developed right flank pain about 3 to 4 days ago, and that it has been gradually getting worse. He states that it waxes and wanes, and is made worse with lying back, or most movements. During my interview, the patient sneezed, and he appeared to be in considerable pain for a brief time. The patient states that he had similar pain about 2 years ago, and that a work-up did not determine its cause, however, his niece tells me that it was not 2 years ago, rather, it was in May 2019, and that he was found to have a fractured kidney caused by a fall. She also reports that the patient fell this past 04/16/2020, therefore there is a concern that he might have done the same again. The patient also reports that he has had left-sided chest pain and going for the past 3 to 4 days. He states that it is sharp in character, that it is a pain, not a discomfort. It too is modified with position and movement. When present, it typically lasts for about 30 minutes, especially with exertion, recurring about 2-3 times a day. The patient goes on to say that he developed gross hematuria around 01:00 this morning. No dysuria. No recent fever, nausea, vomiting, constipation, or diarrhea. Other than his prescribed medications, the patient denies taking any additional medications to treat any of his symptoms. Here in the ED, the patient is found to be hemodynamically stable, afebrile, saturating 95% on 3 L of oxygen per nasal cannula, his usual. The patient specifically requested to me that I give him Dilaudid. The patient's PCP is Dr. Ana Benjamin at the [facility]. He states that he already received an influenza vaccine this season. Left Flank Pain Score (Numeric/FACES): 8 Past Medical History HEENT History: Reports: Impaired Vision, Other (See Below) (upper/lower dentures) Cardiovascular History: Reports: Afib (paroxysmal), CAD, Heart Failure, High Cholesterol, Hypertension, VT (x 4 or 5), Other (See Below) (Dextrocardia) Respiratory History: Reports: COPD (on 2.5 L O2 per N/C nightly), Sleep Apnea (nightyly AutoPAP) Gastrointestinal History: Reports: GERD, PUD Genitourinary History: Reports: BPH, Chronic Renal Insuffiency Psychiatric History: Reports: Depression, PTSD Endocrine/Metabolic History: Reports: Obesity/BMI 30+, Other (See Below) (Prediabetes) Hematologic History: Reports: B12 Deficiency - Infectious Disease History Infectious Disease History: Reports: Chicken Pox, Measles, Mumps - Past Surgical History HEENT Surgical History: Reports: Cataract Surgery (bilateral), Naso-Sinus Surgery (x 3) Cardiovascular Surgical History: Reports: Coronary Artery Stent (x 4) GI Surgical History: Reports: Appendectomy, Colonoscopy (x 7 or 8), EGD (x 7 or 8) Male Surgical History: Reports: Other (See Below) (Right orchiectomy) Musculoskeletal Surgical History: Reports: Hip Replacement (bilateral) Oncologic Surgical History: Reports: Other (See Below) (Prostate bx) Social & Family History - Tobacco Use Years of Tobacco use: 55 Packs/Tins Daily: 0.5 Month/Year Tobacco Last Used: Quit Apr 2019 - Caffeine Use Caffeine Use: Reports: Soda Other Caffeine Use: 2/day - Alcohol Use Alcohol Use History: No - Recreational Drug Use Recreational Drug Use: No - Living Situation & Occupation Living situation: Reports: , with Spouse Occupation: Retired ED ROS GENERAL - Review of Systems Review Of Systems: Comprehensive ROS is negative, except as noted in HPI. ED EXAM, GENERAL - Physical Exam Exam: See Below Exam Limited By: No Limitations General Appearance: Alert, WD/WN, Other (Was briefly very uncomfortable after sneezing) Eye Exam: Bilateral Eye: EOMI, Normal Inspection Ears: Normal External Exam, Hearing Grossly Normal Nose: Normal Inspection Throat/Mouth: Normal Inspection, Normal Lips, Normal Voice, No Airway Compromise Head: Atraumatic, Normocephalic Neck: Normal Inspection, Full Range of Motion Respiratory/Chest: No Respiratory Distress, No Accessory Muscle Use, Decreased Breath Sounds, Rhonchi, Wheezing (inspiratory and expiratory), Prolonged Expiration, Other (Very mild tenderness to palpation of the left chest). No: Crackles, Stridor Cardiovascular: Normal Peripheral Pulses, Regular Rate, Rhythm, No Gallop, No JVD, No Murmur, No Rub Peripheral Pulses: 3+: Radial (L), Radial (R) GI/Abdominal: Normal Bowel Sounds, Soft, Non-Tender, No Organomegaly, No Distention, No Abnormal Bruit, No Mass Back Exam: Normal Inspection (Visible abnormality, such as swelling, erythema, ecchymosis, or abrasion), Muscle Spasm (right lumbar paraspinous muscles), Para spinal Tenderness (to even light palpation of the right lumbar paraspinous muscles) Extremities: Normal Range of Motion, Normal Capillary Refill Neurological: Alert, Oriented, Normal Cognition, No Motor/Sensory Deficits Psychiatric: Normal Affect Skin Exam: Warm, Dry, Intact, Normal Color, No Rash #1 Interpretation EKG Date: 04/21/20 Time: 03:20 Rhythm: A-Fib (with one PVC) Rate (Beats/Min): 84 [place]: Normal P-Wave: Absent QRS: Normal ST-T: Normal QT: Normal Comparison: No Change (03/08/2020) Course - Vital Signs Last Recorded V/S: Last Vital Signs Temp 36.1 C 04/21/20 03:17 Pulse 93 04/21/20 03:17 Resp 16 04/21/20 03:17 BP 130/83 04/21/20 03:17 Pulse Ox 89 L 04/21/20 09:45 - Orders/Labs/Meds Orders: Active Orders 24 hr Category Date Time Status CULTURE BLOOD [BC] Stat Lab 04/21/20 04:20 Received CULTURE BLOOD [BC] Stat Lab 04/21/20 04:28 Received Blood Culture x2 Reflex Set [OM.PC] Stat Oth 04/21/20 03:44 Ordered Labs: Laboratory Tests 04/21/20 04/21/20 04/21/20 Range/Units 03:55 04:20 04:20 WBC 9.31 H (4.23-9.07) K/mm3 RBC 3.93 L (4.63-6.08) M/mm3 Hgb 13.1 L D (13.7-17.5) gm/dl Hct 41.8 (40.1-51.0) % MCV 106.4 H D (79.0-92.2) fl MCH 33.3 H (25.7-32.2) pg MCHC 31.3 L (32.2-35.5) g/dl RDW Std Deviation 59.0 H (35.1-43.9) fL Plt Count 175 (163-337) K/mm3 MPV 9.6 (9.4-12.3) fl Neutrophils % (Manual) 63 H (40-60) % Band Neutrophils % 1 (0-10) % Lymphocytes % (Manual) 17 L (20-40) % Atypical Lymphs % 0 % Monocytes % (Manual) 8 (2-10) % Eosinophils % (Manual) 9 H (0.8-7.0) % Basophils % (Manual) 2 H (0.2-1.2) Platelet Estimate Adequate Plt Morphology Comment Normal Hypochromasia 1+ slight Anisocytosis 3+ marked Microcytosis 3+ marked Ovalocytes 2+ moderate RBC Morph Comment Not Reportable D-Dimer, Quantitative (0.19-0.50) mg/L Puncture Site Lt radial ABG pH 7.33 L (7.35-7.45) ABG pCO2 56.3 H (35.0-45.0) mmHg ABG pO2 71.0 L (80.0-100.0) mmHg ABG HCO3 28.7 H (22.0-26.0) meq/L ABG O2 Saturation 94.1 L (96.0-97.0) % ABG Base Excess 1.9 (-2-2.0) Oskar Test Positive A-a Gradient 86 mmHg O2 Delivery Device Nasal cannula Oxygen Flow Rate 3.0 FiO2 32.00 (21.00-100.00) % Sodium 147 H (136-145) mEq/L Potassium 4.1 (3.5-5.1) mEq/L Chloride 106 (98-107) mEq/L Carbon Dioxide 32 (21-32) mEq/L Anion Gap 13.1 (5-15) BUN 18 (7-18) mg/dL Creatinine 1.4 H (0.7-1.3) mg/dL Est Cr Clr Drug Dosing 45.25 mL/min Estimated GFR (MDRD) 50 (>60) mL/min BUN/Creatinine Ratio 12.9 L (14-18) Glucose 135 H (83-115) mg/dL POC Glucose (83-110) mg/dL Lactic Acid (0.4-2.0) mmol/L Calcium 8.7 (8.5-10.1) mg/dL Magnesium 2.4 (1.8-2.4) mg/dl Total Bilirubin 0.2 (0.2-1.0) mg/dL AST 17 (15-37) U/L ALT 17 (16-63) U/L Alkaline Phosphatase 134 H (46-116) U/L Troponin I < 0.017 (0.00-0.056) ng/mL NT-Pro-B Natriuret Pep (0-125) pg/mL Total Protein 6.6 (6.4-8.2) g/dl Albumin 3.0 L (3.4-5.0) g/dl Globulin 3.6 gm/dL Albumin/Globulin Ratio 0.8 L (1-2) Urine Color (Yellow) Urine Appearance (Clear) Urine pH (5.0-8.0) Ur Specific [place] (1.005-1.030) Urine Protein (Negative) Urine Glucose (UA) (Negative) Urine Ketones (Negative) Urine Occult Blood (Negative) Urine Nitrite (Negative) Urine Bilirubin (Negative) Urine Urobilinogen (0.2-1.0) Ur Leukocyte Esterase (Negative) Urine RBC (0-5) /hpf Urine WBC (0-5) /hpf Ur Epithelial Cells (0-5) /hpf Urine Bacteria (FEW) /hpf Urine Mucus (FEW) /hpf Urine Yeast (Budding) (NOT SEEN) SARS-CoV-2 RNA (JOHN) (NEGATIVE) 04/21/20 04/21/20 04/21/20 Range/Units 04:20 04:20 04:20 WBC (4.23-9.07) K/mm3 RBC (4.63-6.08) M/mm3 Hgb (13.7-17.5) gm/dl Hct (40.1-51.0) % MCV (79.0-92.2) fl MCH (25.7-32.2) pg MCHC (32.2-35.5) g/dl RDW Std Deviation (35.1-43.9) fL Plt Count (163-337) K/mm3 MPV (9.4-12.3) fl Neutrophils % (Manual) (40-60) % Band Neutrophils % (0-10) % Lymphocytes % (Manual) (20-40) % Atypical Lymphs % % Monocytes % (Manual) (2-10) % Eosinophils % (Manual) (0.8-7.0) % Basophils % (Manual) (0.2-1.2) Platelet Estimate Plt Morphology Comment Hypochromasia Anisocytosis Microcytosis Ovalocytes RBC Morph Comment D-Dimer, Quantitative 0.49 (0.19-0.50) mg/L Puncture Site ABG pH (7.35-7.45) ABG pCO2 (35.0-45.0) mmHg ABG pO2 (80.0-100.0) mmHg ABG HCO3 (22.0-26.0) meq/L ABG O2 Saturation (96.0-97.0) % ABG Base Excess (-2-2.0) Oskar Test A-a Gradient mmHg O2 Delivery Device Oxygen Flow Rate FiO2 (21.00-100.00) % Sodium (136-145) mEq/L Potassium (3.5-5.1) mEq/L Chloride (98-107) mEq/L Carbon Dioxide (21-32) mEq/L Anion Gap (5-15) BUN (7-18) mg/dL Creatinine (0.7-1.3) mg/dL Est Cr Clr Drug Dosing mL/min Estimated GFR (MDRD) (>60) mL/min BUN/Creatinine Ratio (14-18) Glucose (83-115) mg/dL POC Glucose (83-110) mg/dL Lactic Acid 1.2 (0.4-2.0) mmol/L Calcium (8.5-10.1) mg/dL Magnesium (1.8-2.4) mg/dl Total Bilirubin (0.2-1.0) mg/dL AST (15-37) U/L ALT (16-63) U/L Alkaline Phosphatase (46-116) U/L Troponin I (0.00-0.056) ng/mL NT-Pro-B Natriuret Pep 678 H (0-125) pg/mL Total Protein (6.4-8.2) g/dl Albumin (3.4-5.0) g/dl Globulin gm/dL Albumin/Globulin Ratio (1-2) Urine Color (Yellow) Urine Appearance (Clear) Urine pH (5.0-8.0) Ur Specific [place] (1.005-1.030) Urine Protein (Negative) Urine Glucose (UA) (Negative) Urine Ketones (Negative) Urine Occult Blood (Negative) Urine Nitrite (Negative) Urine Bilirubin (Negative) Urine Urobilinogen (0.2-1.0) Ur Leukocyte Esterase (Negative) Urine RBC (0-5) /hpf Urine WBC (0-5) /hpf Ur Epithelial Cells (0-5) /hpf Urine Bacteria (FEW) /hpf Urine Mucus (FEW) /hpf Urine Yeast (Budding) (NOT SEEN) SARS-CoV-2 RNA (JOHN) (NEGATIVE) 04/21/20 04/21/20 04/21/20 Range/Units 09:32 09:45 10:15 WBC (4.23-9.07) K/mm3 RBC (4.63-6.08) M/mm3 Hgb (13.7-17.5) gm/dl Hct (40.1-51.0) % MCV (79.0-92.2) fl MCH (25.7-32.2) pg MCHC (32.2-35.5) g/dl RDW Std Deviation (35.1-43.9) fL Plt Count (163-337) K/mm3 MPV (9.4-12.3) fl Neutrophils % (Manual) (40-60) % Band Neutrophils % (0-10) % Lymphocytes % (Manual) (20-40) % Atypical Lymphs % % Monocytes % (Manual) (2-10) % Eosinophils % (Manual) (0.8-7.0) % Basophils % (Manual) (0.2-1.2) Platelet Estimate Plt Morphology Comment Hypochromasia Anisocytosis Microcytosis Ovalocytes RBC Morph Comment D-Dimer, Quantitative (0.19-0.50) mg/L Puncture Site Lt radial ABG pH 7.15 L* (7.35-7.45) ABG pCO2 94.4 H* (35.0-45.0) mmHg ABG pO2 58.0 L (80.0-100.0) mmHg ABG HCO3 31.5 H (22.0-26.0) meq/L ABG O2 Saturation 82.7 L (96.0-97.0) % ABG Base Excess -0.5 (-2-2.0) Oskar Test Positive A-a Gradient 52 mmHg O2 Delivery Device Nasal cannula Oxygen Flow Rate 3.0 FiO2 32.00 (21.00-100.00) % Sodium (136-145) mEq/L Potassium (3.5-5.1) mEq/L Chloride (98-107) mEq/L Carbon Dioxide (21-32) mEq/L Anion Gap (5-15) BUN (7-18) mg/dL Creatinine (0.7-1.3) mg/dL Est Cr Clr Drug Dosing mL/min Estimated GFR (MDRD) (>60) mL/min BUN/Creatinine Ratio (14-18) Glucose (83-115) mg/dL POC Glucose 166 H (83-110) mg/dL Lactic Acid (0.4-2.0) mmol/L Calcium (8.5-10.1) mg/dL Magnesium (1.8-2.4) mg/dl Total Bilirubin (0.2-1.0) mg/dL AST (15-37) U/L ALT (16-63) U/L Alkaline Phosphatase (46-116) U/L Troponin I (0.00-0.056) ng/mL NT-Pro-B Natriuret Pep (0-125) pg/mL Total Protein (6.4-8.2) g/dl Albumin (3.4-5.0) g/dl Globulin gm/dL Albumin/Globulin Ratio (1-2) Urine Color (Yellow) Urine Appearance (Clear) Urine pH (5.0-8.0) Ur Specific [place] (1.005-1.030) Urine Protein (Negative) Urine Glucose (UA) (Negative) Urine Ketones (Negative) Urine Occult Blood (Negative) Urine Nitrite (Negative) Urine Bilirubin (Negative) Urine Urobilinogen (0.2-1.0) Ur Leukocyte Esterase (Negative) Urine RBC (0-5) /hpf Urine WBC (0-5) /hpf Ur Epithelial Cells (0-5) /hpf Urine Bacteria (FEW) /hpf Urine Mucus (FEW) /hpf Urine Yeast (Budding) (NOT SEEN) SARS-CoV-2 RNA (JOHN) Negative (NEGATIVE) 04/21/20 04/21/20 Range/Units 10:56 11:26 WBC (4.23-9.07) K/mm3 RBC (4.63-6.08) M/mm3 Hgb (13.7-17.5) gm/dl Hct (40.1-51.0) % MCV (79.0-92.2) fl MCH (25.7-32.2) pg MCHC (32.2-35.5) g/dl RDW Std Deviation (35.1-43.9) fL Plt Count (163-337) K/mm3 MPV (9.4-12.3) fl Neutrophils % (Manual) (40-60) % Band Neutrophils % (0-10) % Lymphocytes % (Manual) (20-40) % Atypical Lymphs % % Monocytes % (Manual) (2-10) % Eosinophils % (Manual) (0.8-7.0) % Basophils % (Manual) (0.2-1.2) Platelet Estimate Plt Morphology Comment Hypochromasia Anisocytosis Microcytosis Ovalocytes RBC Morph Comment D-Dimer, Quantitative (0.19-0.50) mg/L Puncture Site Rt radial ABG pH 7.25 L (7.35-7.45) ABG pCO2 65.2 H (35.0-45.0) mmHg ABG pO2 81.0 (80.0-100.0) mmHg ABG HCO3 27.8 H (22.0-26.0) meq/L ABG O2 Saturation 95.3 L (96.0-97.0) % ABG Base Excess -0.5 (-2-2.0) Oskar Test Positive A-a Gradient 65 mmHg O2 Delivery Device Bipap 12/6 Oxygen Flow Rate 3.0 FiO2 32.00 (21.00-100.00) % Sodium (136-145) mEq/L Potassium (3.5-5.1) mEq/L Chloride (98-107) mEq/L Carbon Dioxide (21-32) mEq/L Anion Gap (5-15) BUN (7-18) mg/dL Creatinine (0.7-1.3) mg/dL Est Cr Clr Drug Dosing mL/min Estimated GFR (MDRD) (>60) mL/min BUN/Creatinine Ratio (14-18) Glucose (83-115) mg/dL POC Glucose (83-110) mg/dL Lactic Acid (0.4-2.0) mmol/L Calcium (8.5-10.1) mg/dL Magnesium (1.8-2.4) mg/dl Total Bilirubin (0.2-1.0) mg/dL AST (15-37) U/L ALT (16-63) U/L Alkaline Phosphatase (46-116) U/L Troponin I (0.00-0.056) ng/mL NT-Pro-B Natriuret Pep (0-125) pg/mL Total Protein (6.4-8.2) g/dl Albumin (3.4-5.0) g/dl Globulin gm/dL Albumin/Globulin Ratio (1-2) Urine Color Yellow (Yellow) Urine Appearance Clear (Clear) Urine pH 5.5 (5.0-8.0) Ur Specific [place] 1.020 (1.005-1.030) Urine Protein Negative (Negative) Urine Glucose (UA) Negative (Negative) Urine Ketones Negative (Negative) Urine Occult Blood Negative (Negative) Urine Nitrite Negative (Negative) Urine Bilirubin Negative (Negative) Urine Urobilinogen 0.2 (0.2-1.0) Ur Leukocyte Esterase Negative (Negative) Urine RBC Not seen (0-5) /hpf Urine WBC 5-10 H (0-5) /hpf Ur Epithelial Cells Not seen (0-5) /hpf Urine Bacteria Not seen (FEW) /hpf Urine Mucus Few (FEW) /hpf Urine Yeast (Budding) Rare H (NOT SEEN) SARS-CoV-2 RNA (JOHN) (NEGATIVE) Meds: Medications Discontinued Medications Generic Name Dose Route Start Last Admin Trade Name Noel PRN Reason Stop Dose Admin Albuterol/Ipratropium 3 ml 04/21/20 09:45 04/21/20 09:56 Duoneb 3.0-0.5 Mg/3 Ml NEB 04/21/20 09:46 3 ml ONETIME ONE Administration Hydromorphone HCl 1 mg 04/21/20 03:46 04/21/20 03:52 Dilaudid IVPUSH 04/21/20 03:47 1 mg ONETIME ONE Administration Hydromorphone HCl 1 mg 04/21/20 05:24 04/21/20 05:33 Dilaudid IVPUSH 04/21/20 05:25 1 mg ONETIME ONE Administration Sodium Chloride 1,000 mls @ 100 mls/hr 04/21/20 04:00 04/21/20 03:52 Normal Saline IV 100 mls/hr ASDIRECTED SANTOS Administration Sodium Chloride 100 mls @ 60 drops/min 04/21/20 06:00 04/21/20 05:57 Normal Saline IV 60 drops/min ASDIRECTED SANTOS Administration Levetiracetam 500 mg/ Sodium 105 mls @ 420 mls/hr 04/21/20 09:45 04/21/20 09:42 Chloride IV 04/21/20 09:59 420 mls/hr ONETIME ONE Administration Iopamidol 100 ml 04/21/20 05:56 04/21/20 05:57 Isovue-300 (61%) IVPUSH 04/21/20 05:57 100 ml ONETIME ONE Administration Levetiracetam Confirm 04/21/20 09:31 04/21/20 12:45 Keppra Administered 04/21/20 09:32 Not Given Dose 500 mg .ROUTE .STK-MED ONE Lorazepam Confirm 04/21/20 09:29 04/21/20 12:44 Ativan Administered 04/21/20 09:30 Not Given Dose 2 mg .ROUTE .STK-MED ONE Naloxone HCl 2 mg 04/21/20 09:37 04/21/20 09:38 Narcan IVPUSH 04/21/20 09:38 2 mg ONETIME ONE Administration Naloxone HCl Confirm 04/21/20 09:38 04/21/20 12:45 Narcan Administered 04/21/20 09:39 Not Given Dose 2 mg .ROUTE .STK-MED ONE Ondansetron HCl 4 mg 04/21/20 03:51 04/21/20 03:56 Zofran IVPUSH 04/21/20 03:52 4 mg ONETIME ONE Administration - Re-Assessments/Exams Free Text/Narrative Re-Assessment/Exam: 04/21/20 03:47 As above, the patient has had a cough productive of clear or whitish sputum along with a loss of taste and smell for about a month, dyspnea, especially with exertion, for the past few weeks, gradually worsening right flank pain and intermittent left-sided chest pain for the past 3 to 4 days, gross hematuria since 1:00 this morning. His pain is made worse with lying back, most movements, or coughing or sneezing. He told me that he had similar pain about 2 years ago, but his niece tells me that it was actually in May 2019, where he was found to have a fractured kidney. She also tells me that he fell on Thursday, therefore there is concerned that his pain and gross hematuria are due to another kidney injury. I have ordered an extensive work-up that includes numerous blood tests, an ABG, 2 sets of blood cultures, urinalysis, a chest x- ray, and a CT of his abdomen pelvis with IV contrast. In the meantime, the patient will be given IV fluid, IV Dilaudid, and IV Zofran. 04/21/20 05:20 Two-view chest radiograph reviewed. There appears to be dextrocardia with cardiomegaly. No pulmonary vascular congestion. No pleural effusions. There is atelectasis at the superior aspect of the right lower lobe. No pneumothorax. There is hyperinflation with bilateral diaphragmatic flattening, consistent with COPD. There is mild thoracolumbar scoliosis. Formal read per the Radiologist pending. The patient's CBC is remarkable for slight leukocytosis of 9.31, with 1% bandemia. His Hgb is slightly depressed at 13.1 with a Hct within normal limits at 41.8. His CMP is remarkable for mild hyponatremia of 147, and a Cr mildly elevated at 1.4 with a BUN normal at 18. He has mild hyperglycemia of 135, and his alkaline phosphatase is mildly elevated at 134, with the remainder of his CMP being unremarkable. His magnesium level is within normal limits at 2.4. His lactic acid level is within normal limits at 1.2. His troponin is undetectably low. His D-dimer is within normal limits at 0.49. His pro-BNP is slightly elevated at 678. His ABG represents a primary respiratory acidosis with inappropriate compensatory metabolic alkalosis. The patient is currently undergoing a CT of his abdomen and pelvis with IV contrast. He has not yet provided a urine sample. 04/21/20 06:32 CT of the abdomen and pelvis with IV contrast is read by [facility] as: 1. Infrarenal small abdominal aortic aneurysm measuring 2.6 cm in AP dimension and 2.8 cm transversely. 2. Moderate sigmoid diverticulosis with associated muscular hypertrophy. 3. Questionable asymmetric bladder wall thickening at the left lateral wall. Poorly imaged due to beam hardening artifacts. Recommend cystoscopy for further evaluation if hematuria persists. 4. Symmetric excretion from the kidneys bilaterally. The patient has not yet provided a urine sample. 04/21/20 08:37 The patient has not yet provided a urine sample despite numerous requests. It is important that we check a urine sample, since one of the patient's main complaints is that of gross hematuria. The remainder of his work-up today is grossly unremarkable. Case discussed with Dr. Hope, and care of the patient turned over to him at this time, for change of shift. Sepsis Event Note (ED) - Evaluation Sepsis Screening Result: No Definite Risk - Focused Exam Vital Signs: Vital Signs Pulse Ox 04/21/20 09:45 89 L - My Orders Last 24 Hours: My Active Orders 04/21/20 03:44 Blood Culture x2 Reflex Set [OM.PC] Stat 04/21/20 04:20 CULTURE BLOOD [BC] Stat 04/21/20 04:28 CULTURE BLOOD [BC] Stat - Assessment/Plan Last 24 Hours: My Active Orders 04/21/20 03:44 Blood Culture x2 Reflex Set [OM.PC] Stat 04/21/20 04:20 CULTURE BLOOD [BC] Stat 04/21/20 04:28 CULTURE BLOOD [BC] Stat
[2020-04-21] MEDS ORDERED: Sodium Chloride 0.9% 1,000 ML IV SCH (04:00)
[2020-04-21] MEDS ORDERED: Iopamidol 612 MG/ML 100 ML Bottle IVPUSH ONE (05:56)
[2020-04-21] MEDS ORDERED: Sodium Chloride 0.9% 100 ML IV SCH (06:00)
--- NOTE | 2020-04-21 08:08 | CT ---
CT abdomen and pelvis Technique: Multiple axial sections were obtained from above the dome of the diaphragm inferiorly through the pubic symphysis. Intravenous contrast was utilized. No oral contrast has been given. Delayed images were obtained through the abdomen. Reconstructed coronal and sagittal images were obtained. Comparison: Prior CT abdomen and pelvis study of 12/10/19. Visualized lung bases show nothing acute. Liver contains no focal parenchymal abnormality. Spleen appears within normal limits. Several calcifications are noted within the pancreas which are stable from prior exam. No inflammatory change or discrete mass is seen around or within the pancreas. Gallbladder contains no calcified gallstones. Adrenal glands show no nodule. Kidneys show symmetric contrast enhancement. Several minimal low-density lesions are noted within both kidneys which most likely represent minimal cysts. Largest cyst is centrally within the right kidney measuring approximately 1.7 cm. No definite filling defects are seen on the delayed images within the collecting systems. Both ureters show no dilatation. Contrast is noted within the bladder. Aorta shows atherosclerotic change which continues into the iliac vessels. Distal aorta is very slightly aneurysmal. This measures about 2.6 cm in size and is believed to be stable when allowing for differences in measurement technique. No retroperitoneal adenopathy is seen. No mesenteric abnormalities are appreciated. Bilateral hip prosthesis are seen which causes some decreased visualization of the pelvis. Diverticuli are seen within the sigmoid colon and within portions of the descending colon. No inflammatory change of diverticulitis is appreciated. Mild increased stool is seen within the colon. Bone window settings were reviewed show no acute osseous abnormality. Impression: 1. Findings as noted above. 2. Nothing acute is appreciated. There is no specific renal injury identified. Diagnostic code #2
--- NOTE | 2020-04-21 08:08 | CR ---
Chest: 2 views of the chest were obtained. Comparison: Prior chest x-ray of 03/08/20. Heart is enlarged with prominent right side which is stable. Tortuous thoracic aorta is noted. Thick linear density is noted within the right middle lobe compatible with atelectasis along the minor fissure. Pulmonary vessels are slightly increased which are stable. No acute parenchymal change is definitely seen. Minimal degenerative change is scattered within the spine. Impression: 1. Findings as noted above. 2. Nothing acute is definitely appreciated. Diagnostic code #2
[2020-04-21] MEDS ORDERED: LORazepam 2 MG/ML SDV ONE (09:29)
[2020-04-21] MEDS ORDERED: levETIRAcetam 500 MG/5 ML SDV ONE (09:31)
[2020-04-21] MEDS ORDERED: Naloxone 2 MG/2 ML Syringe IVPUSH ONE (09:37)
[2020-04-21] MEDS ORDERED: Naloxone 2 MG/2 ML Syringe ONE (09:38)
[2020-04-21] MEDS ORDERED: levETIRAcetam 500 MG in Sodium Chloride 0.9% 100 ML IV ONE (09:45)
[2020-04-21] MEDS ORDERED: Albuterol/Ipratropium 3.0-0.5 MG/3 ML Neb Soln NEB ONE (09:45)
== END 2020-04-21 14:00 ==
LOC: JD.ED 03:11
DX: T40.2X2A Poisoning by other opioids, intentional self-harm, initial encounter (principal); E87.2 Acidosis; I48.91 Unspecified atrial fibrillation; J44.9 Chronic obstructive pulmonary disease, unspecified; I25.10 Atherosclerotic heart disease of native coronary artery without angina pectoris; I13.0 Hypertensive heart and chronic kidney disease with heart failure and stage 1 through stage 4 chronic kidney disease, or unspecified chronic kidney disease; I50.9 Heart failure, unspecified; N18.9 Chronic kidney disease, unspecified; I25.2 Old myocardial infarction; E78.00 Pure hypercholesterolemia, unspecified; K21.9 Gastro-esophageal reflux disease without esophagitis; N40.0 Benign prostatic hyperplasia without lower urinary tract symptoms; E66.9 Obesity, unspecified; Z68.29 Body mass index [BMI] 29.0-29.9, adult; Z88.6 Allergy status to analgesic agent; Z91.013 Allergy to seafood; Z88.5 Allergy status to narcotic agent; Z88.8 Allergy status to other drugs, medicaments and biological substances; Z79.899 Other long term (current) drug therapy; Z79.01 Long term (current) use of anticoagulants; Z87.891 Personal history of nicotine dependence; Z20.822 Contact with and (suspected) exposure to COVID-19
CPT/HCPCS: 36415; 36600; 71046; 74177; 80053; 81001; 82803; 82962; 83605; 83735; 83880; 84484; 85007; 85027; 85379; 87040; 87635; 93005; 94640; 94660; 96365; 96375; 96376; 99285; J1170; J1953; J2310; J2405; J7030; Q9967; 93010; J7620-GY; U0002

== ENCOUNTER 2020-06-06 17:39 | Inpatient (IN) | payer MEDICARE, OTHER ==
[2020-06-06] MEDS ORDERED: Sodium Chloride 0.9% 10 ML Syringe FLUSH PRN (17:53)
--- NOTE | 2020-06-06 17:53 | EDM.PDOC ---
ED HPI GENERAL MEDICAL PROBLEM - General Chief Complaint: Chest Pain Stated Complaint: SOB/CHEST PAIN Time Seen by Provider: 06/06/20 17:54 Source of Information: Reports: Patient, Old Records, RN Notes Reviewed History Limitations: Reports: No Limitations - History of Present Illness INITIAL COMMENTS - FREE TEXT/NARRATIVE: Patient is a 69-year-old male who presents to the ED for the evaluation of his chest pain and shortness of breath. Patient has a longstanding history of COPD, and he notes that he has been having issues with increasing shortness of breath for the last week to week and a half. He states he just cannot catch his air he walks about 3 feet and is just winded. He has been using his CPAP and oxygen at home, and taking his medications as he normally should and nothing seems to be helping much. He notes that the symptoms have worsened over the last 4 days, he did have a telehealth appointment today and they did instruct him to come to the ER however he had to go [facility] to retrieve a butchered cow, before coming to the ER. He states that he became so short of breath, that he had a syncopal episode after the nap, and then he ended up on the floor. He does not think he hit his head he is having no head pain no blurred vision or double vision, and he is having no other neuro deficits. Patient was rude to the triage nurse, and was explaining that he could not breathe after not being in much visible distress at all. O2 sats at time of triage were anywhere from 90 to 93% on room air, he is not had any fever at home, respiratory rate is 24 breaths/min, blood pressure is 124/98, pulse is 101. EKG at time of triage shows atrial fibrillation for which she has a history of, patient is on Eliquis. He states that he feels like he is just "filling up, he is not been able to get anything up for for his cough for the last for 5 days. He has been taking Mucinex DM for this as well. He states that he feels very congested nasally and has also lost his taste and sense of smell but this has been for the last 2-week and a half as well. Patient's primary care provider is Dr. Benjamin from the [place]. Middle Chest Pain Score (Numeric/FACES): 8 - Related Data Allergies Allergy/AdvReac Type Severity Reaction Status Date / Time aspirin Allergy Severe Airway Verified 06/06/20 17:53 Tightness horseradish Allergy Severe Airway Verified 06/06/20 17:53 Tightness ibuprofen Allergy Severe Airway Verified 06/06/20 17:53 Tightness meperidine HCl [From Demerol] Allergy Severe Airway Verified 06/06/20 17:53 Tightness morphine Allergy Severe Itching Verified 06/06/20 17:53 oxycodone Allergy Severe Rash Verified 06/06/20 17:53 sumatriptan [From Imitrex] Allergy Severe Cannot Verified 06/06/20 17:53 Remember sumatriptan succinate Allergy Severe Cannot Verified 06/06/20 17:53 [From Imitrex] Remember acetaminophen [From Tylenol] Allergy Airway Verified 03/08/20 14:01 Tightness haloperidol [From Haldol] AdvReac Severe Change Verified 06/06/20 17:53 Mental Status haloperidol lactate AdvReac Severe Change Verified 06/06/20 17:53 [From Haldol] Mental Status hydromorphone [From Dilaudid] AdvReac Severe Change Verified 06/06/20 17:53 Mental Status ketorolac tromethamine AdvReac Severe Change Verified 06/06/20 17:53 [From Toradol] Mental Status antihistamines Allergy Severe Airway Uncoded 06/06/20 17:53 Tightness Home Meds: Home Meds Furosemide [Lasix] 40 mg PO DAILY 04/12/14 [History] PARoxetine HCl [Paxil] 20 mg PO DAILY 04/12/14 [History] Potassium Chloride 10 meq PO BID 04/12/14 [History] Tamsulosin HCl [Flomax] 0.4 mg PO DAILY 04/12/14 [History] Tiotropium [Spiriva HandiHaler] 1 cap INH DAILY 04/12/14 [History] Apixaban [Eliquis] 5 mg PO BID 01/23/16 [History] ClonazePAM [KlonoPIN] 0.5 mg PO BEDTIME 10/18/16 [History] Ipratropium [place] 1 spray NASBOTH BID PRN 10/18/16 [History] Cholecalciferol (Vitamin D3) [Vitamin D] 1,000 unit PO BID 04/13/17 [History] Mirtazapine 30 mg PO BEDTIME 04/13/17 [History] Magnesium Oxide 420 mg PO BEDTIME 02/19/18 [History] Budesonide/Formoterol [Symbicort 160-4.5 MCG] 2 puff INH DAILY 04/18/19 [History] Verapamil HCl [Verapamil Sr] 120 mg PO BID 08/19/19 [History] Simvastatin 10 mg PO BEDTIME 08/20/19 [History] guaiFENesin [Guaifenesin] 400 mg PO BID 08/20/19 [History] Levalbuterol Tartrate [Xopenex HFA] 1 puff INH Q6H #1 inhaler 08/22/19 [Rx] Ondansetron [Zofran ODT] 4 mg PO Q6H PRN #20 tab.dis 12/05/19 [Rx] Cyanocobalamin (Vitamin B-12) [Vitamin B-12] 1 tab PO DAILY 12/10/19 [History] Famotidine 40 mg PO DAILY 12/10/19 [History] Finasteride 5 mg PO DAILY 12/10/19 [History] Lactobacillus Acidophilus [Acidophilus] 1 tab PO DAILY 12/10/19 [History] levalbuterol HCL [Xopenex] 1.25 mg NEB QID 12/10/19 [History] Azithromycin [Zithromax] 250 mg PO DAILY #6 tab 03/08/20 [Rx] predniSONE [Prednisone] 40 mg PO DAILY #10 tablet 03/08/20 [Rx] Past Medical History HEENT History: Reports: Impaired Vision, Other (See Below) (upper/lower dentures) Other HEENT History: upper/lower dentures Cardiovascular History: Reports: Afib (paroxysmal), CAD, Heart Failure, High Cholesterol, Hypertension, IA (x 4 or 5), Other (See Below) (Dextrocardia) Other Cardiovascular History: stents in 1999, 5 IA Respiratory History: Reports: COPD (on 2.5 L O2 per N/C nightly), Sleep Apnea (nightyly AutoPAP) Gastrointestinal History: Reports: GERD, PUD Genitourinary History: Reports: BPH, Chronic Renal Insuffiency Musculoskeletal History: Reports: None Neurological History: Reports: Headaches, Chronic Other Neuro History: patient reports minimal CARDENAS, will continue to monitor. Psychiatric History: Reports: Depression, PTSD Endocrine/Metabolic History: Reports: Obesity/BMI 30+, Other (See Below) (Prediabetes) Other Endocrine/Metabolic History: boardline diabetic- checks AM BS daily Hematologic History: Reports: B12 Deficiency - Infectious Disease History Infectious Disease History: Reports: Chicken Pox, Measles, Mumps - Past Surgical History HEENT Surgical History: Reports: Cataract Surgery (bilateral), Naso-Sinus Surgery (x 3) Cardiovascular Surgical History: Reports: Coronary Artery Stent (x 4) GI Surgical History: Reports: Appendectomy, Colonoscopy (x 7 or 8), EGD (x 7 or 8) Male Surgical History: Reports: Other (See Below) (Right orchiectomy) Musculoskeletal Surgical History: Reports: Hip Replacement (bilateral) Oncologic Surgical History: Reports: Other (See Below) (Prostate bx) Social & Family History - Family History Family Medical History: No Pertinent Family History Oncologic: Reports: Leukemia Other Oncologic Family History: Brother - Caffeine Use Caffeine Use: Reports: Soda Other Caffeine Use: 2/day - Living Situation & Occupation Living situation: Reports: , with Spouse Occupation: Retired ED ROS GENERAL - Review of Systems Review Of Systems: Comprehensive ROS is negative, except as noted in HPI. ED EXAM, GENERAL - Physical Exam Exam: See Below Exam Limited By: No Limitations General Appearance: Alert, WD/WN, Mild Distress (pt is somewhat tachypneic but is not winded by every word) Head: Atraumatic, Normocephalic Neck: Normal Inspection Respiratory/Chest: No Respiratory Distress, Lungs Clear, Normal Breath Sounds, No Accessory Muscle Use, Chest Non-Tender Cardiovascular: Normal Peripheral Pulses, Regular Rate, Rhythm, No Edema Peripheral Pulses: 2+: Radial (L), Radial (R) GI/Abdominal: Normal Bowel Sounds, Soft, Non-Tender, No Distention, No Mass Extremities: Normal Inspection, Normal Capillary Refill Neurological: Alert, Oriented, Normal Cognition, No Motor/Sensory Deficits Psychiatric: Anxious Skin Exam: Warm, Dry, Intact, Normal Color, No Rash #1 Interpretation EKG Date: 06/06/20 Time: 17:49 Rhythm: A-Fib Rate (Beats/Min): 101 [place]: Normal P-Wave: Present QRS: Normal ST-T: Normal QT: Prolonged (borderline; QTc at 485) Comparison: No Change EKG Interpretation Comments: No obvious ischemia or acute ST changes noted, reviewed by myself and Dr. Greenfield. Course - Vital Signs Last Recorded V/S: Last Vital Signs Temp 97 F 06/06/20 17:48 Pulse 97 06/06/20 17:48 Resp 24 H 06/06/20 17:48 BP 124/98 H 06/06/20 17:48 Pulse Ox 90 L 06/06/20 17:48 - Orders/Labs/Meds Orders: Active Orders 24 hr Category Date Time Status EKG Documentation Completion [RC] STAT Care 06/06/20 17:53 Ordered Peripheral IV Care [RC] . DIRECTED Care 06/06/20 17:53 Ordered Chest 2V [CR] Stat Exams 06/06/20 17:53 Ordered Head wo Cont [CT] Stat Exams 06/06/20 18:09 Ordered Sodium Chloride 0.9% [Saline Flush] Med 06/06/20 17:53 Ordered 10 ml FLUSH ASDIRECTED PRN Peripheral IV Insertion Adult [OM.PC] Stat Oth 06/06/20 17:53 Ordered Medication Orders Sodium Chloride (Saline Flush) 10 ml FLUSH ASDIRECTED PRN PRN Reason: Keep Vein Open Last Admin: 06/06/20 17:56 Dose: 10 ml Documented by: TERRANCE Labs: Laboratory Tests 06/06/20 06/06/20 06/06/20 Range/Units 17:54 17:55 17:55 WBC 8.99 (4.23-9.07) K/mm3 RBC 4.19 L (4.63-6.08) M/mm3 Hgb 14.0 (13.7-17.5) gm/dl Hct 43.7 (40.1-51.0) % MCV 104.3 H (79.0-92.2) fl MCH 33.4 H (25.7-32.2) pg MCHC 32.0 L (32.2-35.5) g/dl RDW Std Deviation 56.3 H (35.1-43.9) fL Plt Count 194 (163-337) K/mm3 MPV 9.1 L (9.4-12.3) fl Neut % (Auto) 69.8 H (34.0-67.9) % Lymph % (Auto) 16.8 L (21.8-53.1) % Dawes % (Auto) 7.3 (5.3-12.2) % Eos % (Auto) 5.6 (0.8-7.0) Baso % (Auto) 0.3 (0.1-1.2) % Neut # (Auto) 6.27 H (1.78-5.38) K/mm3 Lymph # (Auto) 1.51 (1.32-3.57) K/mm3 Dawes # (Auto) 0.66 (0.30-0.82) K/mm3 Eos # (Auto) 0.50 (0.04-0.54) K/mm3 Baso # (Auto) 0.03 (0.01-0.08) K/mm3 PT 11.1 (9.7-12.0) SECONDS INR 1.04 APTT 26.5 (21.7-31.4) SECONDS Puncture Site Lt radial ABG pH 7.44 (7.35-7.45) ABG pCO2 45.7 H (35.0-45.0) mmHg ABG pO2 54.0 L (80.0-100.0) mmHg ABG HCO3 30.6 H (22.0-26.0) meq/L ABG O2 Saturation 88.4 L (96.0-97.0) % ABG Base Excess 5.9 H (-2-2.0) Oskar Test Positive O2 Delivery Device Room air Oxygen Flow Rate 0.0 FiO2 0.00 L (21.00-100.00) % Sodium (136-145) mEq/L Potassium (3.5-5.1) mEq/L Chloride (98-107) mEq/L Carbon Dioxide (21-32) mEq/L Anion Gap (5-15) BUN (7-18) mg/dL Creatinine (0.7-1.3) mg/dL Est Cr Clr Drug Dosing mL/min Estimated GFR (MDRD) (>60) mL/min BUN/Creatinine Ratio (14-18) Glucose (83-115) mg/dL Calcium (8.5-10.1) mg/dL Magnesium (1.8-2.4) mg/dl Total Bilirubin (0.2-1.0) mg/dL AST (15-37) U/L ALT (16-63) U/L Alkaline Phosphatase (46-116) U/L Troponin I (0.00-0.056) ng/mL NT-Pro-B Natriuret Pep (0-125) pg/mL Total Protein (6.4-8.2) g/dl Albumin (3.4-5.0) g/dl Globulin gm/dL Albumin/Globulin Ratio (1-2) Influenza Type A RNA (NEGATIVE) Influenza Type B RNA (NEGATIVE) SARS-CoV-2 RNA (JOHN) (NEGATIVE) 06/06/20 06/06/20 06/06/20 Range/Units 17:55 17:55 18:15 WBC (4.23-9.07) K/mm3 RBC (4.63-6.08) M/mm3 Hgb (13.7-17.5) gm/dl Hct (40.1-51.0) % MCV (79.0-92.2) fl MCH (25.7-32.2) pg MCHC (32.2-35.5) g/dl RDW Std Deviation (35.1-43.9) fL Plt Count (163-337) K/mm3 MPV (9.4-12.3) fl Neut % (Auto) (34.0-67.9) % Lymph % (Auto) (21.8-53.1) % Dawes % (Auto) (5.3-12.2) % Eos % (Auto) (0.8-7.0) Baso % (Auto) (0.1-1.2) % Neut # (Auto) (1.78-5.38) K/mm3 Lymph # (Auto) (1.32-3.57) K/mm3 [place] # (Auto) (0.30-0.82) K/mm3 Eos # (Auto) (0.04-0.54) K/mm3 Baso # (Auto) (0.01-0.08) K/mm3 PT (9.7-12.0) SECONDS INR APTT (21.7-31.4) SECONDS Puncture Site ABG pH (7.35-7.45) ABG pCO2 (35.0-45.0) mmHg ABG pO2 (80.0-100.0) mmHg ABG HCO3 (22.0-26.0) meq/L ABG O2 Saturation (96.0-97.0) % ABG Base Excess (-2-2.0) Oskar Test O2 Delivery Device Oxygen Flow Rate FiO2 (21.00-100.00) % Sodium 140 (136-145) mEq/L Potassium 3.8 (3.5-5.1) mEq/L Chloride 101 (98-107) mEq/L Carbon Dioxide 32 (21-32) mEq/L Anion Gap 10.8 (5-15) BUN 16 (7-18) mg/dL Creatinine 1.5 H (0.7-1.3) mg/dL Est Cr Clr Drug Dosing 40.76 mL/min Estimated GFR (MDRD) 46 (>60) mL/min BUN/Creatinine Ratio 10.7 L (14-18) Glucose 117 H (83-115) mg/dL Calcium 8.9 (8.5-10.1) mg/dL Magnesium 2.0 (1.8-2.4) mg/dl Total Bilirubin 0.7 (0.2-1.0) mg/dL AST 21 (15-37) U/L ALT 24 (16-63) U/L Alkaline Phosphatase 119 H (46-116) U/L Troponin I < 0.017 (0.00-0.056) ng/mL NT-Pro-B Natriuret Pep 572 H (0-125) pg/mL Total Protein 6.9 (6.4-8.2) g/dl Albumin 3.4 (3.4-5.0) g/dl Globulin 3.5 gm/dL Albumin/Globulin Ratio 1.0 (1-2) Influenza Type A RNA Negative (NEGATIVE) Influenza Type B RNA Negative (NEGATIVE) SARS-CoV-2 RNA (JOHN) Negative (NEGATIVE) Meds: Medications Generic Name Dose Route Start Last Admin Trade Name Freq PRN Reason Stop Dose Admin Sodium Chloride 10 ml 06/06/20 17:53 06/06/20 17:56 Saline Flush FLUSH 10 ml ASDIRECTED PRN Administration Keep Vein Open Discontinued Medications Generic Name Dose Route Start Last Admin Trade Name Freq PRN Reason Stop Dose Admin Methylprednisolone Sodium Succinate 125 mg 06/06/20 18:50 06/06/20 19:17 Solu-Medrol IVPUSH 06/06/20 18:51 125 mg ONETIME ONE Administration - Re-Assessments/Exams Free Text/Narrative Re-Assessment/Exam: 06/06/20 18:09 Patient presents to the ED for his chest pain and shortness of breath. We will go ahead get a chest x-ray, EKG, basic labs we will perform a head CT without contrast as he is on Eliquis and reports a syncopal episode at home. Patient will get a Covid swab as well for possible hospital admission due to suspected COPD exacerbation. 06/06/20 18:51 The patient's laboratory evaluation has pretty much resulted, CBC shows no sign of infection, coagulation studies are within normal limits. The ABG demonstrates a PO2 of 54, but he is not in CO2 retention. Metabolic panel is impressive for a creatinine of 1.5 and a GFR low at 46. Troponin is undetectably low, and BNP is only at a level of 572 at this time. The patient's chest x-ray shows no sign of an obvious consolidation at this time. Head CT has been performed, and still are awaiting official radiology results. No sign of acute bleed or other injury/abnormality. 06/06/20 19:13 CT demonstrates no sign of infarct or intracranial hemorrhage or mass-effect. The patient's influenza/Covid screen were negative at today's visit as well. I will go over these findings with the patient as I believe he is having a COPD exacerbation causing his issues. 06/06/20 19:31 I did talk with our hospitalist, Dr. Rincon, and he does accept the patient for admission for COPD exacerbation. Departure - Departure Time of Disposition: 19:32 Disposition: Admitted As Inpatient 64 Condition: Good Clinical Impression: COPD with acute exacerbation, Hypoxemia - Discharge Information *PRESCRIPTION DRUG MONITORING PROGRAM REVIEWED*: No *COPY OF PRESCRIPTION DRUG MONITORING REPORT IN PATIENT DANITZA: No Referrals: Ana Benjamin MD [Primary Care Provider] - Forms: ED Department Discharge Sepsis Event Note (ED) - Evaluation Sepsis Screening Result: No Definite Risk - Focused Exam Vital Signs: Vital Signs Temp Pulse Resp BP Pulse Ox 06/06/20 17:48 97 F 97 24 H 124/98 H 90 L - My Orders Last 24 Hours: My Active Orders 06/06/20 17:53 EKG Documentation Completion [RC] STAT Peripheral IV Care [RC] . DIRECTED Chest 2V [CR] Stat Sodium Chloride 0.9% [Saline Flush] 10 ml FLUSH ASDIRECTED PRN Peripheral IV Insertion Adult [OM.PC] Stat 06/06/20 18:09 Head wo Cont [CT] Stat - Assessment/Plan Last 24 Hours: My Active Orders 06/06/20 17:53 EKG Documentation Completion [RC] STAT Peripheral IV Care [RC] . DIRECTED Chest 2V [CR] Stat Sodium Chloride 0.9% [Saline Flush] 10 ml FLUSH ASDIRECTED PRN Peripheral IV Insertion Adult [OM.PC] Stat 06/06/20 18:09 Head wo Cont [CT] Stat
[2020-06-06] MEDS ORDERED: methylPREDNISolone Sodium Succinate 125 MG/2 ML SDV IVPUSH ONE (18:50)
[2020-06-06 19:07] LABS: CORONAVIRUS COVID-19 NAA NEGATIVE (NEGATIVE)
--- NOTE | 2020-06-06 20:31 | PCM.HP.2 ---
H&P History of Present Illness - General Date of Service: 06/06/20 Admit Problem/Dx: Admission Diagnosis/Problem Admission Diagnosis/Problem COPD, Moderate chronic obstructive pulmonary disease Source of Information: Patient, Old Records, Provider, RN Notes Reviewed, Significant Other History Limitations: Reports: Respiratory Distress - History of Present Illness Initial Comments - Free Text/Narative: This is a 69 yo elderly white male with past medical hx/o Impaired Vision, Afib on Eliquis, HTN, CAD, HLD, Hx/o [place] S/p stent placement x 5, COPD, SWAPNIL, GERD, PUD, BPH, CARDENAS, Borderline Diabetes, 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 He states he gets significantly short of air after he walks 3 feet. He has been using his home puffers and CPAP but w/o improvement of his symptoms. He endorses some chest discomfort. His symptoms got worse in the past 4 days. He had a telehealth today but was told to come to ED for further evaluation. He denies having fever or chills. No GI/ complaints. No hx/o covid-19 infection or exposure. On presentation to ED, he was found 92-93% on RA. His initial work up in ED shows a CBC remarkable for RBC of 4.19, MCV of 104.3, MCHC of 32, RDW of 56.3, Neutrophils of 69.8%, and Lymphocytes of 16.8%. His coagulation studies are wnl. His ABG shows normal pH with pCO2 of 45.7, pO2 of 54, HCO3 of 30.6, and O2 sat of 88.4% on RA. His chemistry is notable for Cr of 1.5, BS of 117, Alk Phos of 119, and proBNP of 572. His Influenza and Covid-19 rapid tests were both negative. Chest x-ray shows enlarged heart and hyperinflated lungs. But no acute abnormal findings. Patient is coming in for further management of COPD exacerbation and Angina r/o ACS. Middle Chest Pain Score (Numeric/FACES): 8 - Related Data Allergies/Adverse Reactions: Allergies Allergy/AdvReac Type Severity Reaction Status Date / Time acetaminophen [From Tylenol] Allergy Severe Airway Verified 06/07/20 11:01 Tightness aspirin Allergy Severe Airway Verified 06/06/20 17:53 Tightness horseradish Allergy Severe Airway Verified 06/06/20 17:53 Tightness ibuprofen Allergy Severe Airway Verified 06/06/20 17:53 Tightness meperidine HCl [From Demerol] Allergy Severe Airway Verified 06/06/20 17:53 Tightness morphine Allergy Intermediate Itching Verified 06/07/20 11:01 oxycodone Allergy Intermediate Rash Verified 06/07/20 11:01 sumatriptan [From Imitrex] Allergy Unknown Cannot Verified 06/07/20 11:01 Remember sumatriptan succinate Allergy Unknown Cannot Verified 06/07/20 11:01 [From Imitrex] Remember haloperidol [From Haldol] AdvReac Intermediate Change Verified 06/07/20 11:01 Mental Status haloperidol lactate AdvReac Intermediate Change Verified 06/07/20 11:01 [From Haldol] Mental Status hydromorphone [From Dilaudid] AdvReac Intermediate Change Verified 06/07/20 11:01 Mental Status ketorolac tromethamine AdvReac Intermediate Change Verified 06/07/20 11:01 [From Toradol] Mental Status antihistamines Allergy Severe Airway Uncoded 06/06/20 17:53 Tightness Home Medications: Home Meds Furosemide [Lasix] 40 mg PO DAILY 04/12/14 [History] PARoxetine HCl [Paxil] 20 mg PO DAILY 04/12/14 [History] Potassium Chloride 10 meq PO BID 04/12/14 [History] Tamsulosin HCl [Flomax] 0.4 mg PO DAILY 04/12/14 [History] Tiotropium [Spiriva HandiHaler] 1 cap INH DAILY 04/12/14 [History] Apixaban [Eliquis] 5 mg PO BID 01/23/16 [History] ClonazePAM [KlonoPIN] 0.5 mg PO BEDTIME 10/18/16 [History] Ipratropium [place] 1 spray NASBOTH BID PRN 10/18/16 [History] Cholecalciferol (Vitamin D3) [Vitamin D] 1,000 unit PO BID 04/13/17 [History] Mirtazapine 30 mg PO BEDTIME 04/13/17 [History] Magnesium Oxide 420 mg PO BEDTIME 02/19/18 [History] Budesonide/Formoterol [Symbicort 160-4.5 MCG] 2 puff INH DAILY 04/18/19 [History] Verapamil HCl [Verapamil Sr] 120 mg PO BID 08/19/19 [History] Simvastatin 10 mg PO BEDTIME 08/20/19 [History] guaiFENesin [Guaifenesin] 400 mg PO BID 08/20/19 [History] Levalbuterol Tartrate [Xopenex HFA] 1 puff INH Q6H #1 inhaler 08/22/19 [Rx] Ondansetron [Zofran ODT] 4 mg PO Q6H PRN #20 tab.dis 12/05/19 [Rx] Cyanocobalamin (Vitamin B-12) [Vitamin B-12] 1 tab PO DAILY 12/10/19 [History] Famotidine 40 mg PO DAILY 12/10/19 [History] Finasteride 5 mg PO DAILY 12/10/19 [History] Lactobacillus Acidophilus [Acidophilus] 1 tab PO DAILY 12/10/19 [History] levalbuterol HCL [Xopenex] 1.25 mg NEB QID 12/10/19 [History] Azithromycin [Zithromax] 250 mg PO DAILY #6 tab 03/08/20 [Rx] predniSONE [Prednisone] 40 mg PO DAILY #10 tablet 03/08/20 [Rx] Past Medical History HEENT History: Reports: Impaired Vision, Other (See Below) Other HEENT History: upper/lower dentures Cardiovascular History: Reports: Afib, CAD, Heart Failure, High Cholesterol, Hypertension, [place], Other (See Below) Other Cardiovascular History: stents in 1999, 5 [place] Respiratory History: Reports: COPD, Sleep Apnea Gastrointestinal History: Reports: GERD, PUD Genitourinary History: Reports: BPH, Chronic Renal Insuffiency Musculoskeletal History: Reports: None Neurological History: Reports: Headaches, Chronic Other Neuro History: patient reports minimal CARDENAS, will continue to monitor. Psychiatric History: Reports: Depression, PTSD Endocrine/Metabolic History: Reports: Obesity/BMI 30+, Other (See Below) Other Endocrine/Metabolic History: boardline diabetic- checks AM BS daily Hematologic History: Reports: Anticoagulation Therapy, B12 Deficiency - Infectious Disease History Infectious Disease History: Reports: Chicken Pox, Measles, Mumps - Past Surgical History HEENT Surgical History: Reports: Cataract Surgery (bilateral), Naso-Sinus Surgery (x 3) Cardiovascular Surgical History: Reports: Coronary Artery Stent (x 4) GI Surgical History: Reports: Appendectomy, Colonoscopy (x 7 or 8), EGD (x 7 or 8) Male Surgical History: Reports: Other (See Below) (Right orchiectomy) Musculoskeletal Surgical History: Reports: Hip Replacement (bilateral) Oncologic Surgical History: Reports: Other (See Below) (Prostate bx) Social & Family History - Family History Family Medical History: No Pertinent Family History Oncologic: Reports: Leukemia Other Oncologic Family History: Brother - Tobacco Use Tobacco Use Status *Q: Never Tobacco User - Caffeine Use Caffeine Use: Reports: Soda Other Caffeine Use: 2/day - Recreational Drug Use Recreational Drug Use: No - Living Situation & Occupation Living situation: Reports: , with Spouse Occupation: Retired H&P Review of Systems - Review of Systems: Review Of Systems: See Below General: Denies: Fever, Chills, Malaise, Weakness, Fatigue HEENT: Reports: No Symptoms, Sinus Congestion Pulmonary: Reports: Shortness of Breath, Cough. Denies: Hemoptysis Cardiovascular: Reports: Chest Pain, Dyspnea on Exertion, Other (chest congestion). Denies: Orthopnea, Edema, Lightheadedness, Blood Pressure Problem Gastrointestinal: Denies: Abdominal Pain, Nausea, Vomiting Genitourinary: Reports: No Symptoms Musculoskeletal: Reports: No Symptoms Skin: Denies: Cyanosis, Jaundice, Mottled, Diaphoresis, Erythema Psychiatric: Denies: Depression, Anxiety Neurological: Denies: Confusion Hematologic/Lymphatic: Reports: No Symptoms Immunologic: Reports: No Symptoms Exam - Exam Exam: See Below - Vital Signs Vital Signs: Last Vital Signs Temp 36.1 C 06/06/20 17:48 Pulse 97 06/06/20 17:48 Resp 24 H 06/06/20 17:48 BP 124/98 H 06/06/20 17:48 Pulse Ox 90 L 06/06/20 17:48 Weight: 85.275 kg - Exam Quality Assessment: Supplemental Oxygen General: Alert, Oriented, Cooperative, Mild Distress, Other (He is able to speak and complete his sentences) HEENT: Conjunctiva Clear, EACs Clear, EOMI, Mucosa Moist & [place], Nares Patent, Posterior Pharynx Clear, Pupils Equal, Pupils Reactive, TMs Clear, Scleral Icterus Neck: Supple, Trachea Midline Lungs: Normal Respiratory Effort, Decreased Breath Sounds, Other (barrel chest w/o accessory muscle use) Cardiovascular: Irregular Rhythm, Other (distant heart sounds) GI/Abdominal Exam: Normal Bowel Sounds, Soft, Non-Tender, No Organomegaly, No Distention, No Abnormal Bruit, Other (obese) (Male) Exam: Deferred Rectal (Males) Exam: Deferred Back Exam: Normal Inspection, Decreased Range of Motion Extremities: Normal Inspection, Normal Range of Motion, Non-Tender, No Pedal Edema, Normal Capillary Refill Peripheral Pulses: 2+: Dorsalis Pedis (L), Dorsalis Pedis (R) Skin: Warm, Dry, Intact Neuro Extensive - Mental Status: Oriented x3, Normal Cognition, Memory Intact Neuro Extensive - Motor, Sensory, Reflexes: CN II-XII Intact, Normal Gait DTR: 2+: Achilles (L), Achilles (R) Psychiatric: Alert, Normal Affect, Normal Mood - Patient Data Lab Results Last 24 hrs: Laboratory Results - last 24 hr 06/06/20 06/06/20 06/06/20 Range/Units 17:54 17:55 17:55 WBC 8.99 (4.23-9.07) K/mm3 RBC 4.19 L (4.63-6.08) M/mm3 Hgb 14.0 (13.7-17.5) gm/dl Hct 43.7 (40.1-51.0) % MCV 104.3 H (79.0-92.2) fl MCH 33.4 H (25.7-32.2) pg MCHC 32.0 L (32.2-35.5) g/dl RDW Std Deviation 56.3 H (35.1-43.9) fL Plt Count 194 (163-337) K/mm3 MPV 9.1 L (9.4-12.3) fl Neut % (Auto) 69.8 H (34.0-67.9) % Lymph % (Auto) 16.8 L (21.8-53.1) % [place] % (Auto) 7.3 (5.3-12.2) % Eos % (Auto) 5.6 (0.8-7.0) Baso % (Auto) 0.3 (0.1-1.2) % Neut # (Auto) 6.27 H (1.78-5.38) K/mm3 Lymph # (Auto) 1.51 (1.32-3.57) K/mm3 [place] # (Auto) 0.66 (0.30-0.82) K/mm3 Eos # (Auto) 0.50 (0.04-0.54) K/mm3 Baso # (Auto) 0.03 (0.01-0.08) K/mm3 PT 11.1 (9.7-12.0) SECONDS INR 1.04 APTT 26.5 (21.7-31.4) SECONDS Puncture Site Lt radial ABG pH 7.44 (7.35-7.45) ABG pCO2 45.7 H (35.0-45.0) mmHg ABG pO2 54.0 L (80.0-100.0) mmHg ABG HCO3 30.6 H (22.0-26.0) meq/L ABG O2 Saturation 88.4 L (96.0-97.0) % ABG Base Excess 5.9 H (-2-2.0) Oskar Test Positive O2 Delivery Device Room air Oxygen Flow Rate 0.0 FiO2 0.00 L (21.00-100.00) % Sodium (136-145) mEq/L Potassium (3.5-5.1) mEq/L Chloride (98-107) mEq/L Carbon Dioxide (21-32) mEq/L Anion Gap (5-15) BUN (7-18) mg/dL Creatinine (0.7-1.3) mg/dL Est Cr Clr Drug Dosing mL/min Estimated GFR (MDRD) (>60) mL/min BUN/Creatinine Ratio (14-18) Glucose (83-115) mg/dL Calcium (8.5-10.1) mg/dL Magnesium (1.8-2.4) mg/dl Total Bilirubin (0.2-1.0) mg/dL AST (15-37) U/L ALT (16-63) U/L Alkaline Phosphatase (46-116) U/L Troponin I (0.00-0.056) ng/mL NT-Pro-B Natriuret Pep (0-125) pg/mL Total Protein (6.4-8.2) g/dl Albumin (3.4-5.0) g/dl Globulin gm/dL Albumin/Globulin Ratio (1-2) Influenza Type A RNA (NEGATIVE) Influenza Type B RNA (NEGATIVE) SARS-CoV-2 RNA (JOHN) (NEGATIVE) 06/06/20 06/06/20 06/06/20 Range/Units 17:55 17:55 18:15 WBC (4.23-9.07) K/mm3 RBC (4.63-6.08) M/mm3 Hgb (13.7-17.5) gm/dl Hct (40.1-51.0) % MCV (79.0-92.2) fl MCH (25.7-32.2) pg MCHC (32.2-35.5) g/dl RDW Std Deviation (35.1-43.9) fL Plt Count (163-337) K/mm3 MPV (9.4-12.3) fl Neut % (Auto) (34.0-67.9) % Lymph % (Auto) (21.8-53.1) % [place] % (Auto) (5.3-12.2) % Eos % (Auto) (0.8-7.0) Baso % (Auto) (0.1-1.2) % Neut # (Auto) (1.78-5.38) K/mm3 Lymph # (Auto) (1.32-3.57) K/mm3 [place] # (Auto) (0.30-0.82) K/mm3 Eos # (Auto) (0.04-0.54) K/mm3 Baso # (Auto) (0.01-0.08) K/mm3 PT (9.7-12.0) SECONDS INR APTT (21.7-31.4) SECONDS Puncture Site ABG pH (7.35-7.45) ABG pCO2 (35.0-45.0) mmHg ABG pO2 (80.0-100.0) mmHg ABG HCO3 (22.0-26.0) meq/L ABG O2 Saturation (96.0-97.0) % ABG Base Excess (-2-2.0) Oskar Test O2 Delivery Device Oxygen Flow Rate FiO2 (21.00-100.00) % Sodium 140 (136-145) mEq/L Potassium 3.8 (3.5-5.1) mEq/L Chloride 101 (98-107) mEq/L Carbon Dioxide 32 (21-32) mEq/L Anion Gap 10.8 (5-15) BUN 16 (7-18) mg/dL Creatinine 1.5 H (0.7-1.3) mg/dL Est Cr Clr Drug Dosing 40.76 mL/min Estimated GFR (MDRD) 46 (>60) mL/min BUN/Creatinine Ratio 10.7 L (14-18) Glucose 117 H (83-115) mg/dL Calcium 8.9 (8.5-10.1) mg/dL Magnesium 2.0 (1.8-2.4) mg/dl Total Bilirubin 0.7 (0.2-1.0) mg/dL AST 21 (15-37) U/L ALT 24 (16-63) U/L Alkaline Phosphatase 119 H (46-116) U/L Troponin I < 0.017 (0.00-0.056) ng/mL NT-Pro-B Natriuret Pep 572 H (0-125) pg/mL Total Protein 6.9 (6.4-8.2) g/dl Albumin 3.4 (3.4-5.0) g/dl Globulin 3.5 gm/dL Albumin/Globulin Ratio 1.0 (1-2) Influenza Type A RNA Negative (NEGATIVE) Influenza Type B RNA Negative (NEGATIVE) SARS-CoV-2 RNA (JOHN) Negative (NEGATIVE) Result Diagrams: 06/07/20 06:31 06/07/20 06:31 Sepsis Event Note - Evaluation Sepsis Screening Result: No Definite Risk - Focused Exam Vital Signs: Vital Signs Temp Pulse Resp BP Pulse Ox 06/06/20 17:48 36.1 C 97 24 H 124/98 H 90 L Problem List Initiated/Reviewed/Updated: Yes Orders Last 24hrs: Active Orders 24 hr Category Date Time Status Admission Status [Patient Status] [ADT] Routine ADT 06/06/20 19:35 Active EKG Documentation Completion [RC] STAT Care 06/06/20 17:53 Active Peripheral IV Care [RC] . DIRECTED Care 06/06/20 17:53 Active Chest 2V [CR] Stat Exams 06/06/20 17:53 Taken Head wo Cont [CT] Stat Exams 06/06/20 18:09 Taken Sodium Chloride 0.9% [Saline Flush] Med 06/06/20 17:53 Active 10 ml FLUSH ASDIRECTED PRN Peripheral IV Insertion Adult [OM.PC] Stat Oth 06/06/20 17:53 Ordered Medication Orders Sodium Chloride (Saline Flush) 10 ml FLUSH ASDIRECTED PRN PRN Reason: Keep Vein Open Last Admin: 06/06/20 17:56 Dose: 10 ml Documented by: TERRANCE Assessment/Plan Comment:: This is a 69 yo elderly white male with past medical hx/o Impaired Vision, Afib on Eliquis, HTN, CAD, HLD, Hx/o [place] S/p stent placement x5, COPD, SWAPNIL, GERD, PUD, BPH, CARDENAS, Borderline Diabetes, 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 Assessment: Acute: Chest Pain r/o ACS Dyspnea on Exertion Elevated proBNP level of 572 -R/o ACS/Angina Equivalent -Carries Hx/o CAD and [place] S/p Stents placement -Initial troponin and EKG were negative -Plan: ACS work up. NPO midnight and Lexiscan/nuclear tests and 2D echo in AM COPD Exacerbation Hypoxia, 88% on RA now on supplemental O2 Tachypnea with RR in the mid 20s -Carries a hx/o COPD and Former Smoker -Had wheezes on presentation to ED -Received IV Solumedrol in ED -Influenza and Covid-19 tests negative -Plan: IV Steroid, Bronchodilators, Sputum culture with gram stain, PRN Decongestant/Expectorant. IV Azithromycin 500 mg daily. IS/FV as directed and Serial chest x-rays indicated Acute Kidney Injury with Cr of 1.5 Elevate Alk Phos of 119 -He is chronically on diuretic -We will monitor renal panel Hyperglycemia with BS of 117 -He is likely on chronic oral steroid for maintenance medication -Carries no hx/o diabetes or glucose intolerance -We will monitor Class I Obese -BMI of 30.3 -Dietary consult for weight management Chronic: Impaired Vision, Afib on Eliquis, HTN, CAD, HLD, Hx/o [place] S/p stent placement x5, COPD, SWAPNIL, GERD, PUD, BPHA, CARDENAS, Borderline Diabetes, Vit B 12 Def iciency, Anxiety, Depression, PTSD and Obesity Plan: Admit to [facility] with tele. Routine AM Labs. ACS work up. Lipid panel. IV Antibiotic. Resume some home meds once verified. Heart healthy diet. NPO mid night. Additional orders as above. D-dimer to r/o PE. Vit D and Thyroid panel. RT to assess breathing. PT/OT for deconditioning. DVT/GI prophylaxis. Code status is full. Prognosis is guarded-good.
[2020-06-06] MEDS ORDERED: Albuterol/Ipratropium 3.0-0.5 MG/3 ML Neb Soln NEB PRN (21:05)
[2020-06-06] MEDS ORDERED: Bisacodyl 5 MG Tab PO PRN (21:05)
[2020-06-06] MEDS ORDERED: Polyethylene Glycol 3350 Powder 17 GM Packet PO PRN (21:05)
[2020-06-06] MEDS ORDERED: Promethazine 6.25 MG in Sodium Chloride 0.9% 50 ML IV PRN (21:05)
[2020-06-06] MEDS ORDERED: Ondansetron 4 MG/2 ML SDV IV PRN (21:05)
[2020-06-06] MEDS ORDERED: guaiFENesin/Dextromethorphan 100-10 MG/5 ML Soln 5 ML Cup PO PRN (21:10)
[2020-06-06] MEDS ORDERED: Azithromycin 500 MG in Sodium Chloride 0.9% 250 ML IV ONE (21:17)
[2020-06-06] MEDS ORDERED: Verapamil 120 MG Cap.ER PO STA (21:21)
[2020-06-06] MEDS ORDERED: Apixaban 5 MG Tab PO ONE (21:21)
[2020-06-06 21:56] LABS: VITAMIN D,25-HYDROXY 59.5 ng/ml (30.0-100.0)
[2020-06-06] MEDS ORDERED: Levalbuterol HCl 1.25 MG/3 ML Neb NEB ONE (22:15)
[2020-06-06] MEDS: Zolpidem 5 MG Tab PO PRN (23:27)
[2020-06-06] MEDS: ClonazePAM 0.5 MG Tab PO SCH (23:32)
[2020-06-06] MEDS: Mirtazapine 30 MG Tab PO SCH (23:32)
[2020-06-07] MEDS: methylPREDNISolone Sodium Succinate 125 MG/2 ML SDV IVPUSH SCH ×3 (05:57→21:49)
[2020-06-07] MEDS ORDERED: Albuterol/Ipratropium 3.0-0.5 MG/3 ML Neb Soln NEB SCH (06:00)
[2020-06-07] MEDS: Levalbuterol HCl 1.25 MG/3 ML Neb NEB SCH ×4 (06:23→20:33)
--- NOTE | 2020-06-07 07:53 | PCM.PN ---
- General Info Date of Service: 06/07/20 Admission Dx/Problem (Free Text): Admission Diagnosis/Problem Admission Diagnosis/Problem COPD, Moderate chronic obstructive pulmonary disease Subjective Update: In to see Jeffy. He is sitting on the edge of the bed having completed the first portion of his stress test. He reports that he feels better than yesterday but is still not back to baseline. Denies any current chest pain but states that he is still short of breath. He is refusing a heart healthy diet and states if we keep him on that that he will just order fast food delivered to his room. We discussed how his cholesterol is high and he has a significant cardiac history and he still refuses this diet. Will increase core from 10 mg to 20 mg at bedtime after discussion with Dr. Rincon. White count remains normal. Creatinine has improved slightly. Troponins remain negative. He has MedSurg status. Likely length of stay 1-2 more days pending results of echo and stress test which were obtained today. Functional Status: Reports: Pain Controlled, Ambulating, Urinating, Incentive Spirometry, Other (Acapella ). Denies: Tolerating Diet (NPO currently due to stess test this AM. ), New Symptoms - Review of Systems General: Reports: No Symptoms. Denies: Fever, Weakness, Fatigue, Malaise, Chills HEENT: Reports: Sinus Congestion, Other (Reports right nostril feels plugged ). Denies: Headaches, Post Nasal Drip, Sore Throat Pulmonary: Reports: Shortness of Breath, Cough, Sputum, Wheezing, Other (Chest congestion ). Denies: Pleuritic Chest Pain Cardiovascular: Reports: Dyspnea on Exertion. Denies: Chest Pain, Palpitations, Lightheadedness Gastrointestinal: Reports: No Symptoms. Denies: Abdominal Pain, Constipation, Decreased Appetite, Diarrhea, Nausea, Vomiting Genitourinary: Reports: No Symptoms. Denies: Pain Musculoskeletal: Reports: No Symptoms Skin: Reports: No Symptoms. Denies: Cyanosis Neurological: Reports: No Symptoms. Denies: Confusion, Pre-Existing Deficit, Difficulty Walking, Weakness, Gait Disturbance Psychiatric: Reports: No Symptoms - Patient Data Vitals - Most Recent: Last Vital Signs Temp 97.1 F 06/07/20 04:00 Pulse 107 H 06/06/20 22:00 Resp 18 06/07/20 04:00 BP 110/68 06/07/20 04:00 Pulse Ox 91 L 06/07/20 06:23 Weight - Most Recent: 196 lb 12.8 oz I&O - Last 24 Hours: Intake & Output 06/06/20 06/07/20 06/07/20 22:59 06:59 14:59 Intake Total 590 Output Total 700 Balance -110 Lab Results Last 24 Hours: Laboratory Results - last 24 hr 06/06/20 06/06/20 06/06/20 Range/Units 17:54 17:55 17:55 WBC 8.99 (4.23-9.07) K/mm3 RBC 4.19 L (4.63-6.08) M/mm3 Hgb 14.0 (13.7-17.5) gm/dl Hct 43.7 (40.1-51.0) % MCV 104.3 H (79.0-92.2) fl MCH 33.4 H (25.7-32.2) pg MCHC 32.0 L (32.2-35.5) g/dl RDW Std Deviation 56.3 H (35.1-43.9) fL Plt Count 194 (163-337) K/mm3 MPV 9.1 L (9.4-12.3) fl Neut % (Auto) 69.8 H (34.0-67.9) % Lymph % (Auto) 16.8 L (21.8-53.1) % Mclean % (Auto) 7.3 (5.3-12.2) % Eos % (Auto) 5.6 (0.8-7.0) Baso % (Auto) 0.3 (0.1-1.2) % Neut # (Auto) 6.27 H (1.78-5.38) K/mm3 Lymph # (Auto) 1.51 (1.32-3.57) K/mm3 Mclean # (Auto) 0.66 (0.30-0.82) K/mm3 Eos # (Auto) 0.50 (0.04-0.54) K/mm3 Baso # (Auto) 0.03 (0.01-0.08) K/mm3 PT 11.1 (9.7-12.0) SECONDS INR 1.04 APTT 26.5 (21.7-31.4) SECONDS D-Dimer, Quantitative (0.19-0.50) mg/L Puncture Site Lt radial ABG pH 7.44 (7.35-7.45) ABG pCO2 45.7 H (35.0-45.0) mmHg ABG pO2 54.0 L (80.0-100.0) mmHg ABG HCO3 30.6 H (22.0-26.0) meq/L ABG O2 Saturation 88.4 L (96.0-97.0) % ABG Base Excess 5.9 H (-2-2.0) Oskar Test Positive O2 Delivery Device Room air Oxygen Flow Rate 0.0 FiO2 0.00 L (21.00-100.00) % Sodium (136-145) mEq/L Potassium (3.5-5.1) mEq/L Chloride (98-107) mEq/L Carbon Dioxide (21-32) mEq/L Anion Gap (5-15) BUN (7-18) mg/dL Creatinine (0.7-1.3) mg/dL Est Cr Clr Drug Dosing mL/min Estimated GFR (MDRD) (>60) mL/min BUN/Creatinine Ratio (14-18) Glucose (83-115) mg/dL Calcium (8.5-10.1) mg/dL Magnesium (1.8-2.4) mg/dl Total Bilirubin (0.2-1.0) mg/dL AST (15-37) U/L ALT (16-63) U/L Alkaline Phosphatase (46-116) U/L Troponin I (0.00-0.056) ng/mL NT-Pro-B Natriuret Pep (0-125) pg/mL Total Protein (6.4-8.2) g/dl Albumin (3.4-5.0) g/dl Globulin gm/dL Albumin/Globulin Ratio (1-2) Vitamin D 25-Hydroxy (30.0-100.0) ng/ml Free T4 (0.76-1.46) ng/dL TSH 3rd Generation (0.358-3.74) uIU/mL Influenza Type A RNA (NEGATIVE) Influenza Type B RNA (NEGATIVE) SARS-CoV-2 RNA (JOHN) (NEGATIVE) 06/06/20 06/06/20 06/06/20 Range/Units 17:55 17:55 17:55 WBC (4.23-9.07) K/mm3 RBC (4.63-6.08) M/mm3 Hgb (13.7-17.5) gm/dl Hct (40.1-51.0) % MCV (79.0-92.2) fl MCH (25.7-32.2) pg MCHC (32.2-35.5) g/dl RDW Std Deviation (35.1-43.9) fL Plt Count (163-337) K/mm3 MPV (9.4-12.3) fl Neut % (Auto) (34.0-67.9) % Lymph % (Auto) (21.8-53.1) % Mclean % (Auto) (5.3-12.2) % Eos % (Auto) (0.8-7.0) Baso % (Auto) (0.1-1.2) % Neut # (Auto) (1.78-5.38) K/mm3 Lymph # (Auto) (1.32-3.57) K/mm3 Mclean # (Auto) (0.30-0.82) K/mm3 Eos # (Auto) (0.04-0.54) K/mm3 Baso # (Auto) (0.01-0.08) K/mm3 PT (9.7-12.0) SECONDS INR APTT (21.7-31.4) SECONDS D-Dimer, Quantitative (0.19-0.50) mg/L Puncture Site ABG pH (7.35-7.45) ABG pCO2 (35.0-45.0) mmHg ABG pO2 (80.0-100.0) mmHg ABG HCO3 (22.0-26.0) meq/L ABG O2 Saturation (96.0-97.0) % ABG Base Excess (-2-2.0) Oskar Test O2 Delivery Device Oxygen Flow Rate FiO2 (21.00-100.00) % Sodium 140 (136-145) mEq/L Potassium 3.8 (3.5-5.1) mEq/L Chloride 101 (98-107) mEq/L Carbon Dioxide 32 (21-32) mEq/L Anion Gap 10.8 (5-15) BUN 16 (7-18) mg/dL Creatinine 1.5 H (0.7-1.3) mg/dL Est Cr Clr Drug Dosing 40.76 mL/min Estimated GFR (MDRD) 46 (>60) mL/min BUN/Creatinine Ratio 10.7 L (14-18) Glucose 117 H (83-115) mg/dL Calcium 8.9 (8.5-10.1) mg/dL Magnesium 2.0 (1.8-2.4) mg/dl Total Bilirubin 0.7 (0.2-1.0) mg/dL AST 21 (15-37) U/L ALT 24 (16-63) U/L Alkaline Phosphatase 119 H (46-116) U/L Troponin I < 0.017 (0.00-0.056) ng/mL NT-Pro-B Natriuret Pep 572 H (0-125) pg/mL Total Protein 6.9 (6.4-8.2) g/dl Albumin 3.4 (3.4-5.0) g/dl Globulin 3.5 gm/dL Albumin/Globulin Ratio 1.0 (1-2) Vitamin D 25-Hydroxy 59.5 (30.0-100.0) ng/ml Free T4 1.06 (0.76-1.46) ng/dL TSH 3rd Generation 1.299 (0.358-3.74) uIU/mL Influenza Type A RNA (NEGATIVE) Influenza Type B RNA (NEGATIVE) SARS-CoV-2 RNA (JOHN) (NEGATIVE) 06/06/20 06/06/20 06/06/20 Range/Units 17:55 18:15 23:10 WBC (4.23-9.07) K/mm3 RBC (4.63-6.08) M/mm3 Hgb (13.7-17.5) gm/dl Hct (40.1-51.0) % MCV (79.0-92.2) fl MCH (25.7-32.2) pg MCHC (32.2-35.5) g/dl RDW Std Deviation (35.1-43.9) fL Plt Count (163-337) K/mm3 MPV (9.4-12.3) fl Neut % (Auto) (34.0-67.9) % Lymph % (Auto) (21.8-53.1) % Mclean % (Auto) (5.3-12.2) % Eos % (Auto) (0.8-7.0) Baso % (Auto) (0.1-1.2) % Neut # (Auto) (1.78-5.38) K/mm3 Lymph # (Auto) (1.32-3.57) K/mm3 Mclean # (Auto) (0.30-0.82) K/mm3 Eos # (Auto) (0.04-0.54) K/mm3 Baso # (Auto) (0.01-0.08) K/mm3 PT (9.7-12.0) SECONDS INR APTT (21.7-31.4) SECONDS D-Dimer, Quantitative 0.35 (0.19-0.50) mg/L Puncture Site ABG pH (7.35-7.45) ABG pCO2 (35.0-45.0) mmHg ABG pO2 (80.0-100.0) mmHg ABG HCO3 (22.0-26.0) meq/L ABG O2 Saturation (96.0-97.0) % ABG Base Excess (-2-2.0) Oskar Test O2 Delivery Device Oxygen Flow Rate FiO2 (21.00-100.00) % Sodium (136-145) mEq/L Potassium (3.5-5.1) mEq/L Chloride (98-107) mEq/L Carbon Dioxide (21-32) mEq/L Anion Gap (5-15) BUN (7-18) mg/dL Creatinine (0.7-1.3) mg/dL Est Cr Clr Drug Dosing mL/min Estimated GFR (MDRD) (>60) mL/min BUN/Creatinine Ratio (14-18) Glucose (83-115) mg/dL Calcium (8.5-10.1) mg/dL Magnesium (1.8-2.4) mg/dl Total Bilirubin (0.2-1.0) mg/dL AST (15-37) U/L ALT (16-63) U/L Alkaline Phosphatase (46-116) U/L Troponin I < 0.017 (0.00-0.056) ng/mL NT-Pro-B Natriuret Pep (0-125) pg/mL Total Protein (6.4-8.2) g/dl Albumin (3.4-5.0) g/dl Globulin gm/dL Albumin/Globulin Ratio (1-2) Vitamin D 25-Hydroxy (30.0-100.0) ng/ml Free T4 (0.76-1.46) ng/dL TSH 3rd Generation (0.358-3.74) uIU/mL Influenza Type A RNA Negative (NEGATIVE) Influenza Type B RNA Negative (NEGATIVE) SARS-CoV-2 RNA (JOHN) Negative (NEGATIVE) 06/07/20 Range/Units 06:31 WBC 5.12 (4.23-9.07) K/mm3 RBC 4.59 L (4.63-6.08) M/mm3 Hgb 15.3 (13.7-17.5) gm/dl Hct 47.6 (40.1-51.0) % MCV 103.7 H (79.0-92.2) fl MCH 33.3 H (25.7-32.2) pg MCHC 32.1 L (32.2-35.5) g/dl RDW Std Deviation 55.6 H (35.1-43.9) fL Plt Count 196 (163-337) K/mm3 MPV 9.6 (9.4-12.3) fl Neut % (Auto) 89.0 H (34.0-67.9) % Lymph % (Auto) 9.2 L (21.8-53.1) % Mclean % (Auto) 1.0 L (5.3-12.2) % Eos % (Auto) 0.4 L (0.8-7.0) Baso % (Auto) 0.2 (0.1-1.2) % Neut # (Auto) 4.56 (1.78-5.38) K/mm3 Lymph # (Auto) 0.47 L (1.32-3.57) K/mm3 Mclean # (Auto) 0.05 L (0.30-0.82) K/mm3 Eos # (Auto) 0.02 L (0.04-0.54) K/mm3 Baso # (Auto) 0.01 (0.01-0.08) K/mm3 PT (9.7-12.0) SECONDS INR APTT (21.7-31.4) SECONDS D-Dimer, Quantitative (0.19-0.50) mg/L Puncture Site ABG pH (7.35-7.45) ABG pCO2 (35.0-45.0) mmHg ABG pO2 (80.0-100.0) mmHg ABG HCO3 (22.0-26.0) meq/L ABG O2 Saturation (96.0-97.0) % ABG Base Excess (-2-2.0) Oskar Test O2 Delivery Device Oxygen Flow Rate FiO2 (21.00-100.00) % Sodium (136-145) mEq/L Potassium (3.5-5.1) mEq/L Chloride (98-107) mEq/L Carbon Dioxide (21-32) mEq/L Anion Gap (5-15) BUN (7-18) mg/dL Creatinine (0.7-1.3) mg/dL Est Cr Clr Drug Dosing mL/min Estimated GFR (MDRD) (>60) mL/min BUN/Creatinine Ratio (14-18) Glucose (83-115) mg/dL Calcium (8.5-10.1) mg/dL Magnesium (1.8-2.4) mg/dl Total Bilirubin (0.2-1.0) mg/dL AST (15-37) U/L ALT (16-63) U/L Alkaline Phosphatase (46-116) U/L Troponin I (0.00-0.056) ng/mL NT-Pro-B Natriuret Pep (0-125) pg/mL Total Protein (6.4-8.2) g/dl Albumin (3.4-5.0) g/dl Globulin gm/dL Albumin/Globulin Ratio (1-2) Vitamin D 25-Hydroxy (30.0-100.0) ng/ml Free T4 (0.76-1.46) ng/dL TSH 3rd Generation (0.358-3.74) uIU/mL Influenza Type A RNA (NEGATIVE) Influenza Type B RNA (NEGATIVE) SARS-CoV-2 RNA (JOHN) (NEGATIVE) Med Orders - Current: Current Medications Albuterol/Ipratropium (Duoneb 3.0-0.5 Mg/3 Ml) 3 ml NEB Q4H PRN PRN Reason: Shortness Of Breath/wheezing Apixaban (Eliquis) 5 mg PO BID S[facility]OS Bisacodyl (Dulcolax) 5 mg PO DAILY PRN PRN Reason: Constipation Clonazepam (Klonopin) 0.5 mg PO BEDTIME [facility] Last Admin: 06/06/20 23:32 Dose: 0.5 mg Documented by: Guaifenesin/Phenylephrine HCl (Robitussin Dm) 10 ml PO Q4H PRN PRN Reason: Cough Last Admin: 06/06/20 23:27 Dose: 10 ml Documented by: Promethazine HCl 6.25 mg/ (Sodium Chloride) 50.25 mls @ 100 mls/hr IV Q6H PRN PRN Reason: Nausea/Vomiting Azithromycin 500 mg/ Sodium (Chloride) 250 mls @ 250 mls/hr IV Q24H [facility] Stop: 06/11/20 09:01 Levalbuterol HCl (Xopenex) 1.25 mg NEB QIDRT [facility] Last Admin: 06/07/20 06:23 Dose: 1.25 mg Documented by: Methylprednisolone Sodium Succinate (Solu-Medrol) 125 mg IVPUSH Q8H [facility] Last Admin: 06/07/20 05:57 Dose: 125 mg Documented by: Mirtazapine (Remeron) 30 mg PO BEDTIME [facility] Last Admin: 06/06/20 23:32 Dose: 30 mg Documented by: Ondansetron HCl (Zofran) 4 mg IV Q6H PRN PRN Reason: Nausea/Vomiting Polyethylene Glycol (Miralax) 17 gm PO DAILY PRN PRN Reason: Constipation Senna/Docusate Sodium (Senna Plus) 1 tab PO BID PRN PRN Reason: Constipation Sodium Chloride (Saline Flush) 10 ml FLUSH ASDIRECTED PRN PRN Reason: Keep Vein Open Last Admin: 06/06/20 17:56 Dose: 10 ml Documented by: Verapamil HCl (Verelan) 120 mg PO BID [facility] Zolpidem Tartrate (Ambien) 5 mg PO BEDTIME PRN PRN Reason: Sleep Last Admin: 06/06/20 23:27 Dose: 5 mg Documented by: Discontinued Medications Albuterol/Ipratropium (Duoneb 3.0-0.5 Mg/3 Ml) 3 ml NEB BIDRT [facility] Stop: 06/09/20 06:01 Apixaban (Eliquis) 5 mg PO ONETIME ONE Stop: 06/06/20 21:22 Last Admin: 06/06/20 22:01 Dose: 5 mg Documented by: Magnesium Sulfate/Dextrose 1 (gm/ Premix) 100 mls @ 100 mls/hr IV ONETIME ONE Stop: 06/06/20 22:09 Last Admin: 06/06/20 22:02 Dose: 100 mls/hr Documented by: Azithromycin 500 mg/ Sodium (Chloride) 250 mls @ 250 mls/hr IV ONETIME ONE Stop: 06/06/20 22:16 Last Admin: 06/06/20 22:02 Dose: 250 mls/hr Documented by: Levalbuterol HCl (Xopenex) 1.25 mg NEB ONETIME ONE Stop: 06/06/20 22:16 Last Admin: 06/06/20 22:08 Dose: 1.25 mg Documented by: Methylprednisolone Sodium Succinate (Solu-Medrol) 125 mg IVPUSH ONETIME ONE Stop: 06/06/20 18:51 Last Admin: 06/06/20 19:17 Dose: 125 mg Documented by: Non-Formulary Medication (Levalbuterol Tartrate [Xopenex Hfa]) 1 puff INH Q6H [facility] Regadenoson (Lexiscan) 0.4 mg IVPUSH ONETIME ONE Stop: 06/07/20 06:26 Last Admin: 06/07/20 07:06 Dose: 0.4 mg Documented by: Verapamil HCl (Verelan) 120 mg PO NOW STA Stop: 06/06/20 21:22 Last Admin: 06/06/20 22:00 Dose: 120 mg Documented by: - Exam Quality Assessment: Supplemental Oxygen (2.5L ), DVT Prophylaxis. No: Urine Catheter General: Alert, Oriented, Cooperative, No Acute Distress HEENT: Pupils Equal, Pupils Reactive, Mucous Membr. Moist/[place]ck: Supple, Trachea Midline Lungs: Normal Respiratory Effort, Decreased Breath Sounds, Rhonchi, Wheezing Cardiovascular: Regular Rate, Irregular Rhythm GI/Abdominal Exam: Normal Bowel Sounds, Soft, Non-Tender, No Distention (Male) Exam: Deferred Back Exam: Normal Inspection, Full Range of Motion Extremities: Normal Inspection, Normal Range of Motion, Non-Tender, No Pedal Edema, Normal Capillary Refill Peripheral Pulses: 2+: Radial (L), Radial (R), Dorsalis Pedis (L), Dorsalis Pedis (R) Skin: Warm, Dry, Intact Neurological: No New Focal Deficit Psy/Mental Status: Alert, Normal Affect, Normal Mood - Patient Data Lab Results Last 24 hrs: Laboratory Results - last 24 hr 06/06/20 06/06/20 06/06/20 Range/Units 17:54 17:55 17:55 WBC 8.99 (4.23-9.07) K/mm3 RBC 4.19 L (4.63-6.08) M/mm3 Hgb 14.0 (13.7-17.5) gm/dl Hct 43.7 (40.1-51.0) % MCV 104.3 H (79.0-92.2) fl MCH 33.4 H (25.7-32.2) pg MCHC 32.0 L (32.2-35.5) g/dl RDW Std Deviation 56.3 H (35.1-43.9) fL Plt Count 194 (163-337) K/mm3 MPV 9.1 L (9.4-12.3) fl Neut % (Auto) 69.8 H (34.0-67.9) % Lymph % (Auto) 16.8 L (21.8-53.1) % Mclean % (Auto) 7.3 (5.3-12.2) % Eos % (Auto) 5.6 (0.8-7.0) Baso % (Auto) 0.3 (0.1-1.2) % Neut # (Auto) 6.27 H (1.78-5.38) K/mm3 Lymph # (Auto) 1.51 (1.32-3.57) K/mm3 Mclean # (Auto) 0.66 (0.30-0.82) K/mm3 Eos # (Auto) 0.50 (0.04-0.54) K/mm3 Baso # (Auto) 0.03 (0.01-0.08) K/mm3 PT 11.1 (9.7-12.0) SECONDS INR 1.04 APTT 26.5 (21.7-31.4) SECONDS D-Dimer, Quantitative (0.19-0.50) mg/L Puncture Site Lt radial ABG pH 7.44 (7.35-7.45) ABG pCO2 45.7 H (35.0-45.0) mmHg ABG pO2 54.0 L (80.0-100.0) mmHg ABG HCO3 30.6 H (22.0-26.0) meq/L ABG O2 Saturation 88.4 L (96.0-97.0) % ABG Base Excess 5.9 H (-2-2.0) Oskar Test Positive O2 Delivery Device Room air Oxygen Flow Rate 0.0 FiO2 0.00 L (21.00-100.00) % Sodium (136-145) mEq/L Potassium (3.5-5.1) mEq/L Chloride (98-107) mEq/L Carbon Dioxide (21-32) mEq/L Anion Gap (5-15) BUN (7-18) mg/dL Creatinine (0.7-1.3) mg/dL Est Cr Clr Drug Dosing mL/min Estimated GFR (MDRD) (>60) mL/min BUN/Creatinine Ratio (14-18) Glucose (83-115) mg/dL Calcium (8.5-10.1) mg/dL Magnesium (1.8-2.4) mg/dl Total Bilirubin (0.2-1.0) mg/dL AST (15-37) U/L ALT (16-63) U/L Alkaline Phosphatase (46-116) U/L Troponin I (0.00-0.056) ng/mL NT-Pro-B Natriuret Pep (0-125) pg/mL Total Protein (6.4-8.2) g/dl Albumin (3.4-5.0) g/dl Globulin gm/dL Albumin/Globulin Ratio (1-2) Vitamin D 25-Hydroxy (30.0-100.0) ng/ml Free T4 (0.76-1.46) ng/dL TSH 3rd Generation (0.358-3.74) uIU/mL Influenza Type A RNA (NEGATIVE) Influenza Type B RNA (NEGATIVE) SARS-CoV-2 RNA (JOHN) (NEGATIVE) 06/06/20 06/06/20 06/06/20 Range/Units 17:55 17:55 17:55 WBC (4.23-9.07) K/mm3 RBC (4.63-6.08) M/mm3 Hgb (13.7-17.5) gm/dl Hct (40.1-51.0) % MCV (79.0-92.2) fl MCH (25.7-32.2) pg MCHC (32.2-35.5) g/dl RDW Std Deviation (35.1-43.9) fL Plt Count (163-337) K/mm3 MPV (9.4-12.3) fl Neut % (Auto) (34.0-67.9) % Lymph % (Auto) (21.8-53.1) % Mclean % (Auto) (5.3-12.2) % Eos % (Auto) (0.8-7.0) Baso % (Auto) (0.1-1.2) % Neut # (Auto) (1.78-5.38) K/mm3 Lymph # (Auto) (1.32-3.57) K/mm3 Mclean # (Auto) (0.30-0.82) K/mm3 Eos # (Auto) (0.04-0.54) K/mm3 Baso # (Auto) (0.01-0.08) K/mm3 PT (9.7-12.0) SECONDS INR APTT (21.7-31.4) SECONDS D-Dimer, Quantitative (0.19-0.50) mg/L Puncture Site ABG pH (7.35-7.45) ABG pCO2 (35.0-45.0) mmHg ABG pO2 (80.0-100.0) mmHg ABG HCO3 (22.0-26.0) meq/L ABG O2 Saturation (96.0-97.0) % ABG Base Excess (-2-2.0) Oskar Test O2 Delivery Device Oxygen Flow Rate FiO2 (21.00-100.00) % Sodium 140 (136-145) mEq/L Potassium 3.8 (3.5-5.1) mEq/L Chloride 101 (98-107) mEq/L Carbon Dioxide 32 (21-32) mEq/L Anion Gap 10.8 (5-15) BUN 16 (7-18) mg/dL Creatinine 1.5 H (0.7-1.3) mg/dL Est Cr Clr Drug Dosing 40.76 mL/min Estimated GFR (MDRD) 46 (>60) mL/min BUN/Creatinine Ratio 10.7 L (14-18) Glucose 117 H (83-115) mg/dL Calcium 8.9 (8.5-10.1) mg/dL Magnesium 2.0 (1.8-2.4) mg/dl Total Bilirubin 0.7 (0.2-1.0) mg/dL AST 21 (15-37) U/L ALT 24 (16-63) U/L Alkaline Phosphatase 119 H (46-116) U/L Troponin I < 0.017 (0.00-0.056) ng/mL NT-Pro-B Natriuret Pep 572 H (0-125) pg/mL Total Protein 6.9 (6.4-8.2) g/dl Albumin 3.4 (3.4-5.0) g/dl Globulin 3.5 gm/dL Albumin/Globulin Ratio 1.0 (1-2) Vitamin D 25-Hydroxy 59.5 (30.0-100.0) ng/ml Free T4 1.06 (0.76-1.46) ng/dL TSH 3rd Generation 1.299 (0.358-3.74) uIU/mL Influenza Type A RNA (NEGATIVE) Influenza Type B RNA (NEGATIVE) SARS-CoV-2 RNA (JOHN) (NEGATIVE) 06/06/20 06/06/20 06/06/20 Range/Units 17:55 18:15 23:10 WBC (4.23-9.07) K/mm3 RBC (4.63-6.08) M/mm3 Hgb (13.7-17.5) gm/dl Hct (40.1-51.0) % MCV (79.0-92.2) fl MCH (25.7-32.2) pg MCHC (32.2-35.5) g/dl RDW Std Deviation (35.1-43.9) fL Plt Count (163-337) K/mm3 MPV (9.4-12.3) fl Neut % (Auto) (34.0-67.9) % Lymph % (Auto) (21.8-53.1) % Mclean % (Auto) (5.3-12.2) % Eos % (Auto) (0.8-7.0) Baso % (Auto) (0.1-1.2) % Neut # (Auto) (1.78-5.38) K/mm3 Lymph # (Auto) (1.32-3.57) K/mm3 Mclean # (Auto) (0.30-0.82) K/mm3 Eos # (Auto) (0.04-0.54) K/mm3 Baso # (Auto) (0.01-0.08) K/mm3 PT (9.7-12.0) SECONDS INR APTT (21.7-31.4) SECONDS D-Dimer, Quantitative 0.35 (0.19-0.50) mg/L Puncture Site ABG pH (7.35-7.45) ABG pCO2 (35.0-45.0) mmHg ABG pO2 (80.0-100.0) mmHg ABG HCO3 (22.0-26.0) meq/L ABG O2 Saturation (96.0-97.0) % ABG Base Excess (-2-2.0) Oskar Test O2 Delivery Device Oxygen Flow Rate FiO2 (21.00-100.00) % Sodium (136-145) mEq/L Potassium (3.5-5.1) mEq/L Chloride (98-107) mEq/L Carbon Dioxide (21-32) mEq/L Anion Gap (5-15) BUN (7-18) mg/dL Creatinine (0.7-1.3) mg/dL Est Cr Clr Drug Dosing mL/min Estimated GFR (MDRD) (>60) mL/min BUN/Creatinine Ratio (14-18) Glucose (83-115) mg/dL Calcium (8.5-10.1) mg/dL Magnesium (1.8-2.4) mg/dl Total Bilirubin (0.2-1.0) mg/dL AST (15-37) U/L ALT (16-63) U/L Alkaline Phosphatase (46-116) U/L Troponin I < 0.017 (0.00-0.056) ng/mL NT-Pro-B Natriuret Pep (0-125) pg/mL Total Protein (6.4-8.2) g/dl Albumin (3.4-5.0) g/dl Globulin gm/dL Albumin/Globulin Ratio (1-2) Vitamin D 25-Hydroxy (30.0-100.0) ng/ml Free T4 (0.76-1.46) ng/dL TSH 3rd Generation (0.358-3.74) uIU/mL Influenza Type A RNA Negative (NEGATIVE) Influenza Type B RNA Negative (NEGATIVE) SARS-CoV-2 RNA (JOHN) Negative (NEGATIVE) 06/07/20 Range/Units 06:31 WBC 5.12 (4.23-9.07) K/mm3 RBC 4.59 L (4.63-6.08) M/mm3 Hgb 15.3 (13.7-17.5) gm/dl Hct 47.6 (40.1-51.0) % MCV 103.7 H (79.0-92.2) fl MCH 33.3 H (25.7-32.2) pg MCHC 32.1 L (32.2-35.5) g/dl RDW Std Deviation 55.6 H (35.1-43.9) fL Plt Count 196 (163-337) K/mm3 MPV 9.6 (9.4-12.3) fl Neut % (Auto) 89.0 H (34.0-67.9) % Lymph % (Auto) 9.2 L (21.8-53.1) % Mclean % (Auto) 1.0 L (5.3-12.2) % Eos % (Auto) 0.4 L (0.8-7.0) Baso % (Auto) 0.2 (0.1-1.2) % Neut # (Auto) 4.56 (1.78-5.38) K/mm3 Lymph # (Auto) 0.47 L (1.32-3.57) K/mm3 Mclean # (Auto) 0.05 L (0.30-0.82) K/mm3 Eos # (Auto) 0.02 L (0.04-0.54) K/mm3 Baso # (Auto) 0.01 (0.01-0.08) K/mm3 PT (9.7-12.0) SECONDS INR APTT (21.7-31.4) SECONDS D-Dimer, Quantitative (0.19-0.50) mg/L Puncture Site ABG pH (7.35-7.45) ABG pCO2 (35.0-45.0) mmHg ABG pO2 (80.0-100.0) mmHg ABG HCO3 (22.0-26.0) meq/L ABG O2 Saturation (96.0-97.0) % ABG Base Excess (-2-2.0) Oskar Test O2 Delivery Device Oxygen Flow Rate FiO2 (21.00-100.00) % Sodium (136-145) mEq/L Potassium (3.5-5.1) mEq/L Chloride (98-107) mEq/L Carbon Dioxide (21-32) mEq/L Anion Gap (5-15) BUN (7-18) mg/dL Creatinine (0.7-1.3) mg/dL Est Cr Clr Drug Dosing mL/min Estimated GFR (MDRD) (>60) mL/min BUN/Creatinine Ratio (14-18) Glucose (83-115) mg/dL Calcium (8.5-10.1) mg/dL Magnesium (1.8-2.4) mg/dl Total Bilirubin (0.2-1.0) mg/dL AST (15-37) U/L ALT (16-63) U/L Alkaline Phosphatase (46-116) U/L Troponin I (0.00-0.056) ng/mL NT-Pro-B Natriuret Pep (0-125) pg/mL Total Protein (6.4-8.2) g/dl Albumin (3.4-5.0) g/dl Globulin gm/dL Albumin/Globulin Ratio (1-2) Vitamin D 25-Hydroxy (30.0-100.0) ng/ml Free T4 (0.76-1.46) ng/dL TSH 3rd Generation (0.358-3.74) uIU/mL Influenza Type A RNA (NEGATIVE) Influenza Type B RNA (NEGATIVE) SARS-CoV-2 RNA (JOHN) (NEGATIVE) Result Diagrams: 06/07/20 06:31 06/07/20 06:31 Sepsis Event Note - Evaluation Sepsis Screening Result: No Definite Risk - Focused Exam Vital Signs: Vital Signs Temp Temp Pulse Pulse Resp BP BP 06/07/20 06:23 06/07/20 04:00 97.1 F 18 110/68 06/07/20 01:05 97.0 F 14 133/97 H 06/06/20 22:19 06/06/20 22:00 107 H 132/94 H 06/06/20 20:48 97.0 F 20 132/94 H 06/06/20 20:45 105 H 21 H 136/96 H 06/06/20 20:30 96 22 H 116/86 06/06/20 20:00 103 H 18 126/86 Pulse Ox Pulse Ox 06/07/20 06:23 91 L 06/07/20 04:00 91 L 06/07/20 01:05 88 L 06/06/20 22:19 96 06/06/20 22:00 06/06/20 20:48 90 L 06/06/20 20:45 89 L 06/06/20 20:30 89 L 06/06/20 20:00 93 L - Problem List & Annotations (1) COPD with acute exacerbation SNOMED Code(s): 666978419 Code(s): J44.1 - CHRONIC OBSTRUCTIVE PULMONARY DISEASE W (ACUTE) EXACERBATION Status: Acute Priority: High Current Visit: Yes (2) Hypoxemia SNOMED Code(s): 192653962 Code(s): R09.02 - HYPOXEMIA Status: Acute Priority: High Current Visit: Yes (3) Dyspnea on exertion SNOMED Code(s): 36529189 Code(s): R06.00 - DYSPNEA, UNSPECIFIED Status: Acute Priority: High Current Visit: Yes (4) Elevated brain natriuretic peptide (BNP) level SNOMED Code(s): 051997455, 256982282 Code(s): R79.89 - OTHER SPECIFIED ABNORMAL FINDINGS OF BLOOD CHEMISTRY Status: Acute Priority: High Current Visit: Yes (5) Elevated alkaline phosphatase level SNOMED Code(s): 923281648 Code(s): R74.8 - ABNORMAL LEVELS OF OTHER SERUM ENZYMES Status: Acute Pr iority: High Current Visit: Yes (6) Obesity SNOMED Code(s): 053735024, 601746702 Code(s): E66.9 - OBESITY, UNSPECIFIED Status: Acute Priority: High Current Visit: Yes (7) HLD (hyperlipidemia) SNOMED Code(s): 59144610 Code(s): E78.5 - HYPERLIPIDEMIA, UNSPECIFIED Status: Acute Priority: High Current Visit: Yes Qualifiers: Hyperlipidemia type: unspecified Qualified Code(s): E78.5 - Hyperlipidemia, unspecified (8) History of FL (myocardial infarction) SNOMED Code(s): 306594637 Code(s): I25.2 - OLD MYOCARDIAL INFARCTION Status: Chronic Priority: Medium Current Visit: No (9) Acute kidney injury SNOMED Code(s): 40078082, 53248189 Code(s): N17.9 - ACUTE KIDNEY FAILURE, UNSPECIFIED Status: Acute Priority: Medium Current Visit: Yes (10) Elevated blood sugar SNOMED Code(s): 62921960 Code(s): R73.9 - HYPERGLYCEMIA, UNSPECIFIED Status: Acute Priority: Medium Current Visit: No (11) Obstructive sleep apnea SNOMED Code(s): 74849558 Code(s): G47.33 - OBSTRUCTIVE SLEEP APNEA (ADULT) (PEDIATRIC) Status: Chronic Priority: Medium Current Visit: No (12) Atrial fibrillation SNOMED Code(s): 40821461 Code(s): I48.91 - UNSPECIFIED ATRIAL FIBRILLATION Status: Chronic Priority: Medium Current Visit: No Qualifiers: Atrial fibrillation type: longstanding persistent Qualified Code(s): I48.11 - Longstanding persistent atrial fibrillation Annotation/Comment:: rate control improved (13) Hypertension SNOMED Code(s): 71207198 Code(s): I10 - ESSENTIAL (PRIMARY) HYPERTENSION Status: Chronic Priority: Medium Current Visit: No Qualifiers: Hypertension type: unspecified Qualified Code(s): I10 - Essential (primary) hypertension (14) B12 deficiency SNOMED Code(s): 975459815 Code(s): E53.8 - DEFICIENCY OF OTHER SPECIFIED B GROUP VITAMINS Status: Chronic Priority: Medium Current Visit: No (15) GERD (gastroesophageal reflux disease) SNOMED Code(s): 887989007 Code(s): K21.9 - GASTRO-ESOPHAGEAL REFLUX DISEASE WITHOUT ESOPHAGITIS Status: Chronic Priority: Medium Current Visit: No Qualifiers: Esophagitis presence: esophagitis presence not specified Qualified Code(s): K21.9 - Gastro-esophageal reflux disease without esophagitis (16) PUD (peptic ulcer disease) SNOMED Code(s): 66686006 Code(s): K27.9 - PEPTIC ULC, SITE UNSP, UNSP AC OR CHR, W/O HEMOR OR PERF Status: Chronic Priority: Low Current Visit: No (17) Anxiety SNOMED Code(s): 38261044 Code(s): F41.9 - ANXIETY DISORDER, UNSPECIFIED Status: Chronic Priority: Medium Current Visit: No (18) BPH (benign prostatic hyperplasia) SNOMED Code(s): 255007076 Code(s): N40.0 - BENIGN PROSTATIC HYPERPLASIA WITHOUT LOWER URINRY TRACT SYMP Status: Chronic Priority: Low Current Visit: No Qualifiers: Lower urinary tract symptom presence: unspecified whether lower urinary tract symptoms present Qualified Code(s): N40.0 - Benign prostatic hyperplasia without lower urinary tract symptoms (19) Depression SNOMED Code(s): 28398341 Code(s): F32.9 - MAJOR DEPRESSIVE DISORDER, SINGLE EPISODE, UNSPECIFIED Status: Chronic Priority: Medium Current Visit: No Qualifiers: Depression Type: other depression Qualified Code(s): F32.89 - Other specified depressive episodes (20) PTSD (post-traumatic stress disorder) SNOMED Code(s): 34256142 Code(s): F43.10 - POST-TRAUMATIC STRESS DISORDER, UNSPECIFIED Status: Chronic Priority: Medium Current Visit: No (21) Chest pain, rule out acute myocardial infarction SNOMED Code(s): 03881584 Code(s): R07.9 - CHEST PAIN, UNSPECIFIED Status: Acute Priority: High Current Visit: Yes - Problem List Review Problem List Initiated/Reviewed/Updated: Yes - My Orders Last 24 Hours: My Active Orders 06/07/20 07:24 Myocardial Perf Spect Multi [NM] Routine - Plan Plan:: This is a 69 yo elderly white male with past medical hx/o Impaired Vision, Afib on Eliquis, HTN, CAD, HLD, Hx/o FL S/p stent placement x5, COPD, SWAPNIL, GERD, PUD, BPH, CARDENAS, Borderline Diabetes, 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 Assessment: Acute: Chest Pain r/o ACS Dysnea on Exertion Elevated proBNP level of 572 Hyperlipidemia -R/o Angina Equivalent -Carries Hx/o CAD and FL S/p Stents placement -Troponin x3 and EKG were negative -On Zocor at home - will increase dose from 10mg to 20mg after discussion with Dr. Rincon -Plan: ACS work up. Lexiscan and echocardiogram pending. Stop Zocor and start high intensity statin COPD Exacerbation Hypoxia, 88% on RA now on supplemental O2 Tachypenia with RR in the mid 20s -Carries a hx/o COPD and Former Smoker -Had wheezes on presentation to ED -Received IV Solumedrol in ED -Influenza and Covid-19 tests negative -Plan: IV Steroid, Bronchodilators, Sputum culture with gram stain, PRN Decongestant/Expectorant. IV Azithromycin 500 mg daily. IS/FV as directed and Serial Cheat x-rays indicated Acute Kidney Injury with Cr of 1.5-->1.4 Elevate Alk Phos of 119 -He is chronically on diuretic -We will monitor renal panel Hyperglycemia with BS of 117 -He is likely on chronic oral steroid for maintenance medication -Denies history of Diabetes however multiple prior A1Cs have been elevated -Obtain A1C -We will monitor Class I Obese -BMI of 30.3 -Dietary consult for weight management -Refusing heart healthy diet Chronic: Impaired Vision, Afib on Eliquis, HTN, CAD, Hx/o FL S/p stent placement x5, COPD, SWAPNIL, GERD, PUD, BPHA, CARDENAS, Borderline Diabetes, 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 Routine AM Labs. ACS work up. IV Antibiotic. Resume some home meds once verified. heart healthy diet. Regular diet after stress test as patient refusing modified diet. Additional orders as above. RT to assess breathing. PT/OT for deconditioning. DVT/GI prophylaxis. Code status is full. Prognosis is guarded-good.
--- NOTE | 2020-06-07 07:53 | PCM.PRNOTE ---
- Free Text/Narrative Note: Date of service: 06/07/20 Procedure: Regadenoson (Lexiscan) stress test Ordering provider: Dr. Salvador Rincon Indication: Chest pain Baseline EKG: A-fib at 95 bpm Risks and benefits were discussed with the patient and consent form was signed. The patient received Regadenoson (Lexiscan) 0.4 mg IV and a nuclear agent using standard protocol. The patient was seated for the procedure. Lexiscan test: Heart rate: 115 bpm; Blood pressure: 116/77 mm Hg; Oxygenation: 97%. EKG changes of ischemia during stress test or in recovery: None Arrhythmias: None Adverse effects of Lexiscan: Dyspnea that rapidly and spontaneously resolved prior to completion of test. Test terminated due to: End of protocol Impression: 1. Indeterminate Lexiscan stress test ECG for ischemia. Non-diagnostic per Lexiscan protocol. No definitive signs of ischemia seen. 2. Nuclear images pending and will be reported separately per Radiologist.
[2020-06-07] MEDS: LEVALBUTEROL TARTRATE INH SCH (08:13)
--- NOTE | 2020-06-07 08:26 | CT ---
Head CT Technique: Multiple axial sections through the brain were obtained. Intravenous contrast was not utilized. Reconstructed coronal and sagittal images were obtained. Comparison: Prior head CT study of 06/12/17. Findings: Ventricles along with basal cisterns and sulci over the convexities are mildly prominent. Diminished density is noted within the periventricular and subcortical white matter compatible with small vessel ischemic demyelination change. Findings are felt to be fairly stable from prior head CT study. Slight diminished density is also noted within the subcortical white matter compatible with additional small vessel ischemic demyelination change. Small old lacunar infarct is noted within the left basal ganglia. No other abnormal parenchymal densities are seen. No evidence of intracranial hemorrhage. No midline shift or mass-effect is appreciated. Bone window settings were reviewed. Visualized mastoid sinuses show nothing acute. Prior surgery is noted within the paranasal sinuses. Diffuse mucosal thickening is noted within the ethmoid sinuses and sphenoid sinus. No acute calvarial abnormality is appreciated. Impression: 1. Senescent change as noted above. 2. Chronic appearing sinus findings. 3. No acute intracranial abnormality is appreciated. Diagnostic code #2 I agree with preliminary report from [facility], finalized on 06/06/20, 8:04 PM T[employer]HER
--- NOTE | 2020-06-07 08:41 | CR ---
Chest: PA and lateral views of the chest were obtained. Comparison: Prior chest x-ray of 04/21/20 and 03/08/20. Right-sided aortic arch is seen which is stable. Heart is enlarged. Tortuous thoracic aorta is again noted. Minimal scarring is seen within the right middle lobe. Diaphragms are flattened on the lateral view raising the possibility of emphysematous change. No acute parenchymal findings are seen. Minimal degenerative change is seen within the spine. Impression: 1. Findings as noted above. 2. Nothing acute is seen. Diagnostic code #2
[2020-06-07] MEDS: Azithromycin 500 MG in Sodium Chloride 0.9% 250 ML IV SCH (09:13)
[2020-06-07] MEDS: Verapamil 120 MG Cap.ER PO SCH ×2 (09:14→20:20)
[2020-06-07] MEDS: Apixaban 5 MG Tab PO SCH ×2 (09:14→20:22)
[2020-06-07 11:41] LABS: HEMOGLOBIN A1C 6.5 %
--- NOTE | 2020-06-07 12:39 | NM ---
Addendum: Previous ejection fraction is incorrect and given as gallbladder ejection fraction in the impression. This should read "ejection fraction is 52 percent". --- Addendum1 above dictated on [06/07/2020 12:54] by [Michael Carver Hilton J.] --- --- Addendum1 above signed on [06/07/2020 12:58] by [Michael Carver Hilton J.] --- --- Original report below dictated on [06/07/2020 12:29] by [Michael Carver Hilton J.] --- --- Original report below signed on [06/07/2020 12:37] by [Michael Carver Hilton J.] --- Cardiolite cardiac scan with Lexiscan Technique: I have data stating the patient was stressed utilizing Lexiscan protocol. Stress dose of technetium 99m Cardiolite was 11.2 mCi. Rest dose was 31.3 mCi. SPECT imaging was obtained in 3 planes for both portions of the study. Study was also gated. Low-dose chest CT was performed to allow for attenuation correction. Comparison: No prior cardiac imaging is available. Findings: Diminished activity is seen within the inferior and inferolateral smith which extend into the apex seen on the stress study and shows improvement on the rest exam. This finding is suspicious for possible ischemia. Ejection fraction is normal at 52 percent. Wall thickening is diminished within the inferior wall and apex. Impression: 1. Findings are suspicious for ischemia within the inferior and inferolateral smith extending into the apex. 2. Normal gallbladder ejection fraction. Diagnostic code #5 --- Addendum1 signed ---
[2020-06-07] MEDS: Potassium Chloride 10 MEQ Tab.ER PO SCH (20:20)
[2020-06-07] MEDS: Cholecalciferol (Vitamin D3) 25 MCG Tab PO SCH (20:20)
[2020-06-07] MEDS: Mirtazapine 30 MG Tab PO SCH (20:21)
[2020-06-07] MEDS: ClonazePAM 0.5 MG Tab PO SCH (20:22)
[2020-06-07] MEDS: Zolpidem 5 MG Tab PO PRN (20:22)
[2020-06-07] MEDS ORDERED: Simvastatin 20 MG Tab PO SCH (21:00)
[2020-06-08] MEDS: methylPREDNISolone Sodium Succinate 125 MG/2 ML SDV IVPUSH SCH (05:44)
[2020-06-08] MEDS: Levalbuterol HCl 1.25 MG/3 ML Neb NEB SCH ×3 (06:47→09:52)
[2020-06-08] MEDS: Azithromycin 500 MG in Sodium Chloride 0.9% 250 ML IV SCH (08:01)
[2020-06-08] MEDS: Cholecalciferol (Vitamin D3) 25 MCG Tab PO SCH (08:02)
[2020-06-08] MEDS: Apixaban 5 MG Tab PO SCH (08:03)
[2020-06-08] MEDS: Verapamil 120 MG Cap.ER PO SCH (08:03)
[2020-06-08] MEDS: Potassium Chloride 10 MEQ Tab.ER PO SCH (08:03)
[2020-06-08 08:06] VITALS: BP 121/91
[2020-06-08 08:51] VITALS: PULSE 96
[2020-06-08] MEDS ORDERED: Furosemide 40 MG Tab PO SCH (09:00)
[2020-06-08] MEDS ORDERED: Formoterol/Mometasone 200-5 MCG 8.8 GM Inhaler IH SCH (09:00)
[2020-06-08] MEDS ORDERED: Cyanocobalamin (Vitamin B12) 1,000 MCG Tab PO SCH (09:00)
[2020-06-08] MEDS ORDERED: Famotidine 20 MG Tab PO SCH (09:00)
[2020-06-08] MEDS ORDERED: PARoxetine 20 MG Tab PO SCH (09:00)
[2020-06-08] MEDS ORDERED: Tamsulosin 0.4 MG Cap.ER PO SCH (09:00)
[2020-06-08] MEDS ORDERED: Finasteride 5 MG Tab PO SCH (09:00)
[2020-06-08] MEDS ORDERED: Tiotropium Bromide 4 GM Inhalation Spray (2.5mcg/1 dose; 10 doses) INH SCH (09:00)
--- NOTE | 2020-06-08 11:54 | PCM.DCSUM1 ---
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 He states he gets significantly short of air after he walks 3 feet. He has been using his home puffers and CPAP but w/o improvement of his symptoms. He endorses some chest discomfort. His symptoms got worse in the past 4 days. He had a telehealth today but was told to come to ED for further evaluation. He denies having fever or chills. No GI/ complaints. No hx/o covid-19 infection or exposure. On presentation to ED, he was found 92-93% on RA. His initial work up in ED shows a CBC remarkable for RBC of 4.19, MCV of 104.3, MCHC of 32, RDW of 56.3, Neutrophils of 69.8%, and Lymphocytes of 16.8%. His coagulation studies are wnl. His ABG shows normal pH with pCO2 of 45.7, pO2 of 54, HCO3 of 30.6, and O2 sat of 88.4% on RA. His chemistry is notable for Cr of 1.5, BS of 117, Alk Phos of 119, and proBNP of 572. His Influenza and Covid-19 rapid tests were both negative. Chest x-ray shows enlarged heart and hyperinflated lungs. But no acute abnormal findings. Patient is coming in for further management of COPD exacerbation and Angina r/o ACS. Diagnosis: Stroke: No - Discharge Data Discharge Date: 06/08/20 (Admit date: 06/06/20) Discharge Disposition: Home, Self-Care 01 Condition: Good - Referral to Home Health Primary Care Physician: Ana Benjamin MD - Discharge Diagnosis/Problem(s) (1) COPD with acute exacerbation SNOMED Code(s): 806230970 ICD Code: J44.1 - CHRONIC OBSTRUCTIVE PULMONARY DISEASE W (ACUTE) EX ACERBATION Status: Acute Priority: High Current Visit: Yes (2) Hypoxemia SNOMED Code(s): 900414233 ICD Code: R09.02 - HYPOXEMIA Status: Acute Priority: High Current Visit: Yes (3) Dyspnea on exertion SNOMED Code(s): 93901578 ICD Code: R06.00 - DYSPNEA, UNSPECIFIED Status: Acute Priority: High Current Visit: Yes (4) Elevated brain natriuretic peptide (BNP) level SNOMED Code(s): 261329714, 360947907 ICD Code: R79.89 - OTHER SPECIFIED ABNORMAL FINDINGS OF BLOOD CHEMISTRY Status: Acute Priority: High Current Visit: Yes (5) Elevated alkaline phosphatase level SNOMED Code(s): 058252199 ICD Code: R74.8 - ABNORMAL LEVELS OF OTHER SERUM ENZYMES Status: Acute Priority: High Current Visit: Yes (6) Obesity SNOMED Code(s): 783268859, 695867352 ICD Code: E66.9 - OBESITY, UNSPECIFIED Status: Acute Priority: High Current Visit: Yes (7) HLD (hyperlipidemia) SNOMED Code(s): 69484802 ICD Code: E78.5 - HYPERLIPIDEMIA, UNSPECIFIED Status: Acute Priority: High Current Visit: Yes Qualifiers: Hyperlipidemia type: unspecified Qualified Code(s): E78.5 - Hyperlipidemia, unspecified (8) History of VT (myocardial infarction) SNOMED Code(s): 770037976 ICD Code: I25.2 - OLD MYOCARDIAL INFARCTION Status: Chronic Priority: Medium Current Visit: No (9) Acute kidney injury SNOMED Code(s): 36777134, 34407691 ICD Code: N17.9 - ACUTE KIDNEY FAILURE, UNSPECIFIED Status: Acute Priority: Medium Current Visit: Yes (10) Elevated blood sugar SNOMED Code(s): 59190946 ICD Code: R73.9 - HYPERGLYCEMIA, UNSPECIFIED Status: Acute Priority: Medium Current Visit: No (11) Obstructive sleep apnea SNOMED Code(s): 63081720 ICD Code: G47.33 - OBSTRUCTIVE SLEEP APNEA (ADULT) (PEDIATRIC) Status: Chronic Priority: Medium Current Visit: No (12) Atrial fibrillation SNOMED Code(s): 88885382 ICD Code: I48.91 - UNSPECIFIED ATRIAL FIBRILLATION Status: Chronic Priority: Medium Current Visit: No Problem Details: rate control improved Qualifiers: Atrial fibrillation type: longstanding persistent Qualified Code(s): I48.11 - Longstanding persistent atrial fibrillation (13) Hypertension SNOMED Code(s): 62167170 ICD Code: I10 - ESSENTIAL (PRIMARY) HYPERTENSION Status: Chronic Priority: Medium Current Visit: No Qualifiers: Hypertension type: unspecified Qualified Code(s): I10 - Essential (primary) hypertension (14) B12 deficiency SNOMED Code(s): 450539724 ICD Code: E53.8 - DEFICIENCY OF OTHER SPECIFIED B GROUP VITAMINS Status: Chronic Priority: Medium Current Visit: No (15) GERD (gastroesophageal reflux disease) SNOMED Code(s): 559112173 ICD Code: K21.9 - GASTRO-ESOPHAGEAL REFLUX DISEASE WITHOUT ESOPHAGITIS Status: Chronic Priority: Medium Current Visit: No Qualifiers: Esophagitis presence: esophagitis presence not specified Qualified Code(s): K21.9 - Gastro-esophageal reflux disease without esophagitis (16) PUD (peptic ulcer disease) SNOMED Code(s): 15434748 ICD Code: K27.9 - PEPTIC ULC, SITE UNSP, UNSP AC OR CHR, W/O HEMOR OR PERF Status: Chronic Priority: Low Current Visit: No (17) Anxiety SNOMED Code(s): 04681368 ICD Code: F41.9 - ANXIETY DISORDER, UNSPECIFIED Status: Chronic Priority: Medium Current Visit: No (18) BPH (benign prostatic hyperplasia) SNOMED Code(s): 265725765 ICD Code: N40.0 - BENIGN PROSTATIC HYPERPLASIA WITHOUT LOWER URINRY TRACT SYMP Status: Chronic Priority: Low Current Visit: No Qualifiers: Lower urinary tract symptom presence: unspecified whether lower urinary tract symptoms present Qualified Code(s): N40.0 - Benign prostatic hyperplasia without lower urinary tract symptoms (19) Depression SNOMED Code(s): 17551660 ICD Code: F32.9 - MAJOR DEPRESSIVE DISORDER, SINGLE EPISODE, UNSPECIFIED Status: Chronic Priority: Medium Current Visit: No Qualifiers: Depression Type: other depression Qualified Code(s): F32.89 - Other specified depressive episodes (20) PTSD (post-traumatic stress disorder) SNOMED Code(s): 17485592 ICD Code: F43.10 - POST-TRAUMATIC STRESS DISORDER, UNSPECIFIED Status: Chronic Priority: Medium Current Visit: No (21) Chest pain, rule out acute myocardial infarction SNOMED Code(s): 98440958 ICD Code: R07.9 - CHEST PAIN, UNSPECIFIED Status: Acute Priority: High Current Visit: Yes (22) Cardiovascular stress test abnormal Status: Acute Priority: High Current Visit: Yes - Patient Summary/Data Consults: Consultations 06/06/20 21:05 Consult to Case Management/[employer]mite Welder [CONS] Routine Consult to Membership Secretary [CONS] Routine Consult to Spiritual Care [CONS] Routine OT Evaluation and Treatment [CONS] Routine PT Evaluation and Treatment [CONS] Routine Respiratory Care Assess and Treatment [CONS] Routine 06/06/20 21:14 Consult to Pulmonary Rehabilitation [CONS] Routine Labs Pending at D/C: None Recommended Follow-up Testing/Procedures: Follow-up with primary care provider within 7-10 days of discharge, sooner if needed. Follow-up with cardiology as scheduled. Hospital Course: This is a 69-year-old male with a history of significant coronary and pulmonary disease who is well-known to our service. He presents to our ED on 06/06/2020 with a 1.5-week history of increasing shortness of breath, especially noted on exertion. He also reports nasal congestion, chest congestion, and a wet cough. He states he has been having occasional left-sided chest pain but believes it is likely due to his longstanding anxiety. He has a history of A. fib on Eliquis and is noted to be rate controlled during this admission. He also has a history of significant COPD requiring chronic oxygen and prior myocardial infarction's with 5 stents placed. Troponin was obtained x3 and all were less than 0.017. EKG showed atrial fibrillation but no signs of ischemia. proBNP was noted to be 572. Lipid panel was obtained and always HDL was elevated his LDL was also noted to be elevated. Triglycerides were within normal limits. Patient does have a history of hyperlipidemia and is on Zocor 10 mg at home. This will be increased to 20 mg after discussion with Dr. Rincon. Throughout his stay he was noted to be requiring 5 L of oxygen via nasal cannula but was able to be weaned back to 2 L. He was utilizing his incentive spirometry and Acapella. He was given IV steroids and bronchodilators. He was also started on 500 mg daily azithromycin. Creatinine was noted to be between 1.5 and 1.4 however patient does have a history of renal injury. Blood sugars were elevated, likely due to steroid use. A1c was obtained and was 6.5 although again, this is likely skewed because of the patient's chronic steroid use. Because of his dyspnea and occasional chest pressure a Lexiscan stress test was ordered. EKG portion was nondiagnostic due to Lexiscan protocol however no definitive sign of ischemia was noted. Myocardial perfusion obtained and noted diminished activity within the inferior and inferior lateral smith which extend into the apex seen on the stress study and shows improvement on the rest exam. This findings suspicious for possible ischemia. Ejection fraction is noted at 52%. Wall thickening is diminished within the inferior wall and apex. Because of these findings attempt was made to contact Dr. Lord, the patient's cardi ologist from [place] at [facility]. he is reportedly out of the fist for some time so contacted on-call loading and unloading supervisor Dr. Morris, who believes patient can be safely discharged home. He recommends patient follow-up outpatient in their office, as patient will likely require an angiogram. These results and this plan were discussed with the patient and he is in agreement. Appointment for primary care provider and cardiology were made prior to discharge. Patient was instructed to take it easy and avoid any exertional situations until he sees cardiology next week. He was instructed to return to the emergency room should he notice any worsening chest pain or shortness of breath. He was instructed to continue his home oxygen as per prior. He was prescribed 5 more days of p.o. azithromycin. Patient is on clonazepam and he reports that he has 5 more days worth of medications, however [facility] He reports this package was in their mailbox but was opened and the pills were missing. Police report was filed with the local [employer]'s office and the baby attendant was contacted. Prescription for 3 more days of pills will be sent to get him through until he can get a refill. Zocor was increased from 10 mg to 20 mg and prescription for this was sent as noted above. We did discuss patient's worsening lipid panel, as patient refused heart healthy diet while here and stated "if you keep me on that I am just going to order outside food every day." Because of this patient remain on a regular diet. He did work with PT and OT who are recommending home independent. They noted he did much better this day with therapies then on other stays. He was discharged home today. - Patient Instructions Diet: Heart Healthy Diet, Diabetic Diet Activity: No Strenuous Activities, Rest and Relax Today Driving: Do Not Drive (today ) Showering/Bathing: May Shower Notify Provider of: Fever, Increased Pain, Nausea and/or Vomiting Other/Special Instructions: Follow-up with primary care provider within 7-10 days of discharge, sooner if needed. Follow-up with Cardiology in [place] as scheduled. It is very important you attend this appointment. Continue to wear your oxygen as before. Resume home medications as directed. You will be prescribed an antiboitic for you COPD exacerbation. Take this as directed until completed. Take it easy and avoid strenuous activity until you see cardiology. Your statin dosing was increased. Be sure to take the new dosing. Continue to utilize your incentive spirometer (Clear/blue device you inhale through) and acapella (green device you blow through) for 1-2 weeks or until symptoms resolve. Should symptoms return or worsen contact your primary care provider or return to the Emergency Department. - Discharge Plan *PRESCRIPTION DRUG MONITORING PROGRAM REVIEWED*: No *COPY OF PRESCRIPTION DRUG MONITORING REPORT IN PATIENT DANITZA: No Prescriptions/Med Rec: Azithromycin 500 mg PO DAILY #3 tablet ClonazePAM [KlonoPIN] 0.5 mg PO BEDTIME #5 tablet Simvastatin [Zocor] 20 mg PO BEDTIME #20 tablet Home Medications: Home Meds Furosemide [Lasix] 40 mg PO DAILY 04/12/14 [History] PARoxetine HCl [Paxil] 20 mg PO DAILY 04/12/14 [History] Potassium Chloride 10 meq PO BID 04/12/14 [History] Tamsulosin HCl [Flomax] 0.4 mg PO DAILY 04/12/14 [History] Tiotropium [Spiriva HandiHaler] 1 cap INH DAILY 04/12/14 [History] Apixaban [Eliquis] 5 mg PO BID 01/23/16 [History] ClonazePAM [KlonoPIN] 0.5 mg PO BEDTIME 10/18/16 [History] Ipratropium Center 1 spray NASBOTH BID PRN 10/18/16 [History] Cholecalciferol (Vitamin D3) [Vitamin D] 1,000 unit PO BID 04/13/17 [History] Mirtazapine 30 mg PO BEDTIME 04/13/17 [History] Magnesium Oxide 420 mg PO BEDTIME 02/19/18 [History] Budesonide/Formoterol [Symbicort 160-4.5 MCG] 2 puff INH DAILY 04/18/19 [History] Verapamil HCl [Verapamil Sr] 120 mg PO BID 08/19/19 [History] guaiFENesin [Guaifenesin] 400 mg PO BID 08/20/19 [History] Levalbuterol Tartrate [Xopenex HFA] 1 puff INH Q6H #1 inhaler 08/22/19 [Rx] Ondansetron [Zofran ODT] 4 mg PO Q6H PRN #20 tab.dis 12/05/19 [Rx] Cyanocobalamin (Vitamin B-12) [Vitamin B-12] 1 tab PO DAILY 12/10/19 [History] Famotidine 40 mg PO DAILY 12/10/19 [History] Finasteride 5 mg PO DAILY 12/10/19 [History] Lactobacillus Acidophilus [Acidophilus] 1 tab PO DAILY 12/10/19 [History] levalbuterol HCL [Xopenex] 1.25 mg NEB QID 12/10/19 [History] predniSONE [Prednisone] 40 mg PO DAILY #10 tablet 03/08/20 [Rx] Azithromycin 500 mg PO DAILY #3 tablet 06/08/20 [Rx] ClonazePAM [KlonoPIN] 0.5 mg PO BEDTIME #5 tablet 06/08/20 [Rx] Simvastatin [Zocor] 20 mg PO BEDTIME #20 tablet 06/08/20 [Rx] Oxygen Therapy Mode: Nasal Cannula Oxygen Flow Rate (L/min): 2 Maintain SpO2% greater than: 88 Patient Handouts: Chronic Obstructive Pulmonary Disease Exacerbation, Diabetes Mellitus and Sick Day Management, Sepsis, Diagnosis, Adult, Form - COPD Action Plan, Eating Plan for Chronic Obstructive Pulmonary Disease, COPD and Physical Activity Forms: ED Department Discharge Referrals: Ko Morris DO [Ordering Only Provider] - 06/12/20 3:30 pm (come 15-20 minutes prior to the appointment to register. the time is Moshe time. ) Ana Benjamin MD [Primary Care Provider] - (Follow up as asvied after seeing [facility].) - Discharge Summary/Plan Comment DC Time >30 min.: Yes (45 mins ) - General Info Date of Service: 06/08/20 Admission Dx/Problem (Free Text: Admission Diagnosis/Problem Admission Diagnosis/Problem COPD, Moderate chronic obstructive pulmonary disease Functional Status: Reports: Pain Controlled, Tolerating Diet, Ambulating, Urinating, Incentive Spirometry, Other (Acapella ). Denies: New Symptoms - Review of Systems General: Reports: No Symptoms. Denies: Fever, Weakness, Fatigue, Malaise, Chills HEENT: Reports: No Symptoms. Denies: Headaches, Sore Throat Pulmonary: Reports: Shortness of Breath (baseline ), Cough (baseline ), Sputum, Wheezing (baseline ) Cardiovascular: Reports: Dyspnea on Exertion (baseline ). Denies: Chest Pain, Palpitations Gastrointestinal: Reports: No Symptoms. Denies: Abdominal Pain, Constipation, Diarrhea, Nausea, Vomiting Genitourinary: Reports: No Symptoms. Denies: Pain Musculoskeletal: Reports: No Symptoms Skin: Reports: No Symptoms. Denies: Cyanosis Neurological: Reports: No Symptoms. Denies: Confusion, Pre-Existing Deficit, Difficulty Walking, Weakness, Gait Disturbance Psychiatric: Reports: No Symptoms - Patient Data Vitals - Most Recent: Last Vital Signs Temp 97.7 F 06/08/20 08:00 Pulse 95 06/08/20 08:03 Resp 20 06/08/20 08:00 BP 121/91 H 06/08/20 08:03 Pulse Ox 91 L 06/08/20 08:18 Weight - Most Recent: 195 lb 4.8 oz I&O - Last 24 hours: Intake & Output 06/07/20 06/08/20 06/08/20 22:59 06:59 14:59 Intake Total 550 1160 Balance 550 1160 Lab Results - Last 24 hrs: Laboratory Results - last 24 hr 06/08/20 06/08/20 Range/Units 05:46 05:46 WBC 11.81 H (4.23-9.07) K/mm3 RBC 4.00 L (4.63-6.08) M/mm3 Hgb 13.2 L D (13.7-17.5) gm/dl Hct 41.9 (40.1-51.0) % MCV 104.8 H (79.0-92.2) fl MCH 33.0 H (25.7-32.2) pg MCHC 31.5 L (32.2-35.5) g/dl RDW Std Deviation 55.1 H (35.1-43.9) fL Plt Count 207 (163-337) K/mm3 MPV 9.8 (9.4-12.3) fl Neut % (Auto) 93.4 H (34.0-67.9) % Lymph % (Auto) 3.6 L (21.8-53.1) % [place] % (Auto) 2.7 L (5.3-12.2) % Eos % (Auto) 0 L (0.8-7.0) Baso % (Auto) 0.1 (0.1-1.2) % Neut # (Auto) 11.04 H (1.78-5.38) K/mm3 Lymph # (Auto) 0.42 L (1.32-3.57) K/mm3 [place] # (Auto) 0.32 (0.30-0.82) K/mm3 Eos # (Auto) 0.00 L (0.04-0.54) K/mm3 Baso # (Auto) 0.01 (0.01-0.08) K/mm3 Manual Slide Review Abnormal smear Sodium 139 (136-145) mEq/L Potassium 4.6 (3.5-5.1) mEq/L Chloride 102 (98-107) mEq/L Carbon Dioxide 27 (21-32) mEq/L Anion Gap 14.6 (5-15) BUN 32 H (7-18) mg/dL Creatinine 1.5 H (0.7-1.3) mg/dL Est Cr Clr Drug Dosing 40.76 mL/min Estimated GFR (MDRD) 46 (>60) mL/min BUN/Creatinine Ratio 21.3 H (14-18) Glucose 226 H (83-115) mg/dL Calcium 8.9 (8.5-10.1) mg/dL Magnesium 2.4 (1.8-2.4) mg/dl Total Bilirubin 0.4 (0.2-1.0) mg/dL AST 18 (15-37) U/L ALT 23 (16-63) U/L Alkaline Phosphatase 104 (46-116) U/L C-Reactive Protein 0.7 (<1.0) mg/dL Total Protein 6.3 L (6.4-8.2) g/dl Albumin 3.1 L (3.4-5.0) g/dl Globulin 3.2 gm/dL Albumin/Globulin Ratio 1.0 (1-2) CHRISTOPHER Results - Last 24 hrs: Microbiology 06/07/20 17:35 Gram Stain - Preliminary Sputum - Expectorated Sputum Culture - Preliminary 06/07/20 12:00 Gram Stain - Final Sputum - Expectorated Sputum Culture - Final Med Orders - Current: Current Medications Albuterol/Ipratropium (Duoneb 3.0-0.5 Mg/3 Ml) 3 ml NEB Q4H PRN PRN Reason: Shortness Of Breath/wheezing Apixaban (Eliquis) 5 mg PO BID [facility] Last Admin: 06/08/20 08:03 Dose: 5 mg Documented by: Bisacodyl (Dulcolax) 5 mg PO DAILY PRN PRN Reason: Constipation Cholecalciferol (Vitamin D3) 25 mcg PO BID [facility] Last Admin: 06/08/20 08:02 Dose: 25 mcg Documented by: Clonazepam (Klonopin) 0.5 mg PO BEDTIME [facility] Last Admin: 06/07/20 20:22 Dose: 0.5 mg Documented by: Cyanocobalamin (Vitamin B12) 1,000 mcg PO DAILY [facility] Last Admin: 06/08/20 08:05 Dose: 1,000 mcg Documented by: Famotidine (Pepcid) 40 mg PO DAILY [facility] Last Admin: 06/08/20 08:03 Dose: 40 mg Documented by: Finasteride (Proscar) 5 mg PO DAILY [facility] Last Admin: 06/08/20 08:04 Dose: 5 mg Documented by: Furosemide (Lasix) 40 mg PO DAILY [facility] Last Admin: 06/08/20 08:05 Dose: 40 mg Documented by: Guaifenesin/Phenylephrine HCl (Robitussin Dm) 10 ml PO Q4H PRN PRN Reason: Cough Last Admin: 06/06/20 23:27 Dose: 10 ml Documented by: Promethazine HCl 6.25 mg/ (Sodium Chloride) 50.25 mls @ 100 mls/hr IV Q6H PRN PRN Reason: Nausea/Vomiting Azithromycin 500 mg/ Sodium (Chloride) 250 mls @ 250 mls/hr IV Q24H [facility] Stop: 06/11/20 09:01 Last Admin: 06/08/20 08:01 Dose: 250 mls/hr Documented by: Levalbuterol HCl (Xopenex) 1.25 mg NEB QIDRT [facility] Last Admin: 06/08/20 09:52 Dose: Not Given Documented by: Methylprednisolone Sodium Succinate (Solu-Medrol) 125 mg IVPUSH Q8H [facility] Last Admin: 06/08/20 05:44 Dose: 125 mg Documented by: Mirtazapine (Remeron) 30 mg PO BEDTIME [facility] Last Admin: 06/07/20 20:21 Dose: 30 mg Documented by: Mometasone Furoate/Formoterol Fumar (Dulera 200-5 Mcg) 2 puff IH DAILY [facility] Last Admin: 06/08/20 08:16 Dose: 2 puff Documented by: Ondansetron HCl (Zofran) 4 mg IV Q6H PRN PRN Reason: Nausea/Vomiting Paroxetine HCl (Paxil) 20 mg PO DAILY [facility] Last Admin: 06/08/20 08:04 Dose: 20 mg Documented by: Polyethylene Glycol (Miralax) 17 gm PO DAILY PRN PRN Reason: Constipation Potassium Chloride (Klor-Con 10) 10 meq PO BID [facility] Last Admin: 06/08/20 08:03 Dose: 10 meq Documented by: Senna/Docusate Sodium (Senna Plus) 1 tab PO BID PRN PRN Reason: Constipation Simvastatin (Zocor) 20 mg PO BEDTIME [facility] Last Admin: 06/07/20 20:21 Dose: 20 mg Documented by: Sodium Chloride (Saline Flush) 10 ml FLUSH ASDIRECTED PRN PRN Reason: Keep Vein Open Last Admin: 06/06/20 17:56 Dose: 10 ml Documented by: Tamsulosin HCl (Flomax) 0.4 mg PO DAILY [facility] Last Admin: 06/08/20 08:04 Dose: 0.4 mg Documented by: Tiotropium Center (Spiriva Respimat) 0 gm INH DAILY [facility] Last Admin: 06/08/20 08:16 Dose: 4 gm Documented by: Verapamil HCl (Verelan) 120 mg PO BID [facility] Last Admin: 06/08/20 08:03 Dose: 120 mg Documented by: Zolpidem Tartrate (Ambien) 5 mg PO BEDTIME PRN PRN Reason: Sleep Last Admin: 06/07/20 20:22 Dose: 5 mg Documented by: Discontinued Medications Albuterol/Ipratropium (Duoneb 3.0-0.5 Mg/3 Ml) 3 ml NEB BIDRT [facility] Stop: 06/09/20 06:01 Apixaban (Eliquis) 5 mg PO ONETIME ONE Stop: 06/06/20 21:22 Last Admin: 06/06/20 22:01 Dose: 5 mg Documented by: Magnesium Sulfate/Dextrose 1 (gm/ Premix) 100 mls @ 100 mls/hr IV ONETIME ONE Stop: 06/06/20 22:09 Last Admin: 06/06/20 22:02 Dose: 100 mls/hr Documented by: Azithromycin 500 mg/ Sodium (Chloride) 250 mls @ 250 mls/hr IV ONETIME ONE Stop: 06/06/20 22:16 Last Admin: 06/06/20 22:02 Dose: 250 mls/hr Documented by: Levalbuterol HCl (Xopenex) 1.25 mg NEB ONETIME ONE Stop: 06/06/20 22:16 Last Admin: 06/06/20 22:08 Dose: 1.25 mg Documented by: Methylprednisolone Sodium Succinate (Solu-Medrol) 125 mg IVPUSH ONETIME ONE Stop: 06/06/20 18:51 Last Admin: 06/06/20 19:17 Dose: 125 mg Documented by: Non-Formulary Medication (Levalbuterol Tartrate [Xopenex Hfa]) 1 puff INH Q6H [facility] Last Admin: 06/07/20 08:13 Dose: Not Given Documented by: Regadenoson (Lexiscan) 0.4 mg IVPUSH ONETIME ONE Stop: 06/07/20 06:26 Last Admin: 06/07/20 07:06 Dose: 0.4 mg Documented by: Verapamil HCl (Verelan) 120 mg PO NOW STA Stop: 06/06/20 21:22 Last Admin: 06/06/20 22:00 Dose: 120 mg Documented by: - Exam Quality Assessment: Reports: Supplemental Oxygen (2L ), DVT Prophylaxis General: Reports: Alert, Oriented, Cooperative, No Acute Distress HEENT: Reports: Pupils Equal, Pupils Reactive, Mucous Membr. Moist/[place] Neck: Reports: Trachea Midline Lungs: Reports: Normal Respiratory Effort, Decreased Breath Sounds, Wheezing (mild ). Denies: Crackles, Rales, Rhonchi Cardiovascular: Reports: Regular Rate, Irregular Rhythm (A-fib - rate controlled ) GI/Abdominal Exam: Normal Bowel Sounds, Soft, Non-Tender, No Distention (Male) Exam: Deferred Rectal (Males) Exam: Deferred Back Exam: Reports: Normal Inspection, Full Range of Motion Extremities: Normal Inspection, Normal Range of Motion, Non-Tender, No Pedal Edema, Normal Capillary Refill Skin: Reports: Warm, Dry, Intact Neurological: Reports: No New Focal Deficit Psy/Mental Status: Reports: Alert, Normal Affect, Normal Mood
== END 2020-06-08 13:30 | disposition home or self-care (01) | DRG 191 ==
LOC: JD.ED 17:39 → JD.ICU 20:32 → JD.MS 06-08 12:32 → JD.ICU 06-08 12:34
PROVIDERS: ADMIT Internal Medicine; ATTEND Internal Medicine
DX: J44.1 Chronic obstructive pulmonary disease with (acute) exacerbation (principal); N17.9 Acute kidney failure, unspecified; I48.11 Longstanding persistent atrial fibrillation; R09.02 Hypoxemia; H54.7 Unspecified visual loss; I10 Essential (primary) hypertension; I25.10 Atherosclerotic heart disease of native coronary artery without angina pectoris; E78.5 Hyperlipidemia, unspecified; I13.0 Hypertensive heart and chronic kidney disease with heart failure and stage 1 through stage 4 chronic kidney disease, or unspecified chronic kidney disease; N18.9 Chronic kidney disease, unspecified; G47.33 Obstructive sleep apnea (adult) (pediatric); I50.9 Heart failure, unspecified; Z87.11 Personal history of peptic ulcer disease; I48.0 Paroxysmal atrial fibrillation; E53.8 Deficiency of other specified B group vitamins; F41.9 Anxiety disorder, unspecified; E78.00 Pure hypercholesterolemia, unspecified; E66.9 Obesity, unspecified; I25.2 Old myocardial infarction; R74.8 Abnormal levels of other serum enzymes; F32.89 Other specified depressive episodes; R73.9 Hyperglycemia, unspecified; T38.0X5A Adverse effect of glucocorticoids and synthetic analogues, initial encounter; Z68.30 Body mass index [BMI] 30.0-30.9, adult; Z95.5 Presence of coronary angioplasty implant and graft; K21.9 Gastro-esophageal reflux disease without esophagitis; N40.0 Benign prostatic hyperplasia without lower urinary tract symptoms; F32.9 Major depressive disorder, single episode, unspecified; F43.10 Post-traumatic stress disorder, unspecified; Z88.6 Allergy status to analgesic agent; Z88.5 Allergy status to narcotic agent; Z88.8 Allergy status to other drugs, medicaments and biological substances; Z91.018 Allergy to other foods; Z79.01 Long term (current) use of anticoagulants; Z99.81 Dependence on supplemental oxygen; Z79.51 Long term (current) use of inhaled steroids; Z79.52 Long term (current) use of systemic steroids; Z79.899 Other long term (current) drug therapy; Z20.822 Contact with and (suspected) exposure to COVID-19
CPT/HCPCS: 0240U; 36415; 36600; 70450; 71046; 78452; 80048; 80053; 80061; 82306; 82803; 83036; 83735; 83880; 84439; 84443; 84484; 85025; 85379; 85610; 85730; 86140; 87070; 87077; 87186; 87205; 93005; 93017; 93306; 94640; 94667; 94668; 96374; 97116; 97162; 97165; 99285; 93010; 99223; 99233; 99239; A9270-GY; A9500; J0456; J2785; J2930; J3475; J7050; J7612-GY

== ENCOUNTER 2020-06-17 14:58 | Emergency (ER) | payer OTHER ==
[2020-06-17 15:21] VITALS: BP 143/97; PULSE 117
[2020-06-17] MEDS ORDERED: Lidocaine 1% 10 ML MDV INJECT ONE (15:33)
--- NOTE | 2020-06-17 15:37 | EDM.PDOC ---
ED HPI GENERAL MEDICAL PROBLEM - General Chief Complaint: Laceration Stated Complaint: R HAND POINTER FINGER LAC Time Seen by Provider: 06/17/20 15:17 Source of Information: Reports: Patient, RN Notes Reviewed History Limitations: Reports: No Limitations - History of Present Illness INITIAL COMMENTS - FREE TEXT/NARRATIVE: Patient is a 69-year-old male who presents to the ED for a right pointer finger laceration. Patient notes he was working on a vehicle, on the carburetor, when he inadvertently brought his hand backwards, and it lanced the radiator fan, this caused a roughly 5 cm linear skin flap type laceration to the posterior aspect of the patient's proximal second phalanx. He is bleeding quite a bit as he is on Eliquis for other cardiac issues. He states that the finger is throbbing and very painful. He did not take anything for pain management prior to coming to the ER. He is feeling well otherwise no fevers or chills, cough or shortness of breath, nausea/vomiting/diarrhea. Patient is up-to-date on his tetanus vaccine. Right Finger-Index Pain Score (Numeric/FACES): 7 - Related Data Allergies Allergy/AdvReac Type Severity Reaction Status Date / Time acetaminophen [From Tylenol] Allergy Severe Airway Verified 06/17/20 15:21 Tightness aspirin Allergy Severe Airway Verified 06/17/20 15:21 Tightness horseradish Allergy Severe Airway Verified 06/17/20 15:21 Tightness ibuprofen Allergy Severe Airway Verified 06/17/20 15:21 Tightness meperidine HCl [From Demerol] Allergy Severe Airway Verified 06/17/20 15:21 Tightness morphine Allergy Intermediate Itching Verified 06/17/20 15:21 oxycodone Allergy Intermediate Rash Verified 06/17/20 15:21 sumatriptan [From Imitrex] Allergy Unknown Cannot Verified 06/17/20 15:21 Remember sumatriptan succinate Allergy Unknown Cannot Verified 06/17/20 15:21 [From Imitrex] Remember haloperidol [From Haldol] AdvReac Intermediate Change Verified 06/17/20 15:21 Mental Status haloperidol lactate AdvReac Intermediate Change Verified 06/17/20 15:21 [From Haldol] Mental Status hydromorphone [From Dilaudid] AdvReac Intermediate Change Verified 06/17/20 15:21 Mental Status ketorolac tromethamine AdvReac Intermediate Change Verified 06/17/20 15:21 [From Toradol] Mental Status antihistamines Allergy Severe Airway Uncoded 06/17/20 15:21 Tightness Home Meds: Home Meds Furosemide [Lasix] 40 mg PO DAILY 04/12/14 [History] PARoxetine HCl [Paxil] 20 mg PO DAILY 04/12/14 [History] Potassium Chloride 10 meq PO BID 04/12/14 [History] Tamsulosin HCl [Flomax] 0.4 mg PO DAILY 04/12/14 [History] Tiotropium [Spiriva HandiHaler] 1 cap INH DAILY 04/12/14 [History] Apixaban [Eliquis] 5 mg PO BID 01/23/16 [History] ClonazePAM [KlonoPIN] 0.5 mg PO BEDTIME 10/18/16 [History] Ipratropium [place] 1 spray NASBOTH BID PRN 10/18/16 [History] Cholecalciferol (Vitamin D3) [Vitamin D] 1,000 unit PO BID 04/13/17 [History] Mirtazapine 30 mg PO BEDTIME 04/13/17 [History] Magnesium Oxide 420 mg PO BEDTIME 02/19/18 [History] Budesonide/Formoterol [Symbicort 160-4.5 MCG] 2 puff INH DAILY 04/18/19 [History] Verapamil HCl [Verapamil Sr] 120 mg PO BID 08/19/19 [History] guaiFENesin [Guaifenesin] 400 mg PO BID 08/20/19 [History] Levalbuterol Tartrate [Xopenex HFA] 1 puff INH Q6H #1 inhaler 08/22/19 [Rx] Ondansetron [Zofran ODT] 4 mg PO Q6H PRN #20 tab.dis 12/05/19 [Rx] Cyanocobalamin (Vitamin B-12) [Vitamin B-12] 1 tab PO DAILY 12/10/19 [History] Famotidine 40 mg PO DAILY 12/10/19 [History] Finasteride 5 mg PO DAILY 12/10/19 [History] Lactobacillus Acidophilus [Acidophilus] 1 tab PO DAILY 12/10/19 [History] levalbuterol HCL [Xopenex] 1.25 mg NEB QID 12/10/19 [History] predniSONE [Prednisone] 40 mg PO DAILY #10 tablet 03/08/20 [Rx] Azithromycin 500 mg PO DAILY #3 tablet 06/08/20 [Rx] ClonazePAM [KlonoPIN] 0.5 mg PO BEDTIME #5 tablet 06/08/20 [Rx] Simvastatin [Zocor] 20 mg PO BEDTIME #20 tablet 06/08/20 [Rx] Past Medical History HEENT History: Reports: Impaired Vision, Other (See Below) Other HEENT History: upper/lower dentures Cardiovascular History: Reports: Afib, CAD, Heart Failure, High Cholesterol, Hyp ertension, [place], Other (See Below) Other Cardiovascular History: stents in 1999, 5 [place] Respiratory History: Reports: COPD, Sleep Apnea Gastrointestinal History: Reports: GERD, PUD Genitourinary History: Reports: BPH, Chronic Renal Insuffiency Musculoskeletal History: Reports: None Neurological History: Reports: Headaches, Chronic Other Neuro History: patient reports minimal CARDENAS, will continue to monitor. Psychiatric History: Reports: Depression, PTSD Endocrine/Metabolic History: Reports: Obesity/BMI 30+, Other (See Below) Other Endocrine/Metabolic History: boardline diabetic- checks AM BS daily Hematologic History: Reports: Anticoagulation Therapy, B12 Deficiency - Infectious Disease History Infectious Disease History: Reports: Chicken Pox, Measles, Mumps - Past Surgical History Head Surgeries/Procedures: Reports: None HEENT Surgical History: Reports: Cataract Surgery, Naso-Sinus Surgery Other HEENT Surgeries/Procedures: OU Cardiovascular Surgical History: Reports: Coronary Artery Stent Other Cardiovascular Surgeries/Procedures: x3 Respiratory Surgical History: Reports: None GI Surgical History: Reports: Appendectomy, Colonoscopy, EGD Male Surgical History: Reports: Other (See Below) Other Male Surgeries/Procedures: testicle removed Endocrine Surgical History: Reports: None Neurological Surgical History: Reports: None Musculoskeletal Surgical History: Reports: Hip Replacement Other Musculoskeletal Surgeries/Procedures:: bilateral hip replacements Oncologic Surgical History: Reports: Other (See Below) Social & Family History - Family History Family Medical History: No Pertinent Family History Oncologic: Reports: Leukemia Other Oncologic Family History: Brother - Tobacco Use Tobacco Use Status *Q: Unknown Ever Used Tobacco - Caffeine Use Caffeine Use: Reports: Soda Other Caffeine Use: 2/day Caffeine Use Comment: 1-2 sodas - Living Situation & Occupation Living situation: Reports: , with Spouse Occupation: Retired ED ROS GENERAL - Review of Systems Review Of Systems: Comprehensive ROS is negative, except as noted in HPI. ED EXAM, SKIN/RASH Exam: See Below Exam Limited By: No Limitations General Appearance: Alert, WD/WN, No Apparent Distress Respiratory/Chest: No Respiratory Distress, Lungs Clear, Normal Breath Sounds, No Accessory Muscle Use, Chest Non-Tender Cardiovascular: Normal Peripheral Pulses, Regular Rate, Rhythm, No Edema Peripheral Pulses: 2+: Radial (L), Radial (R) Extremities: Normal Range of Motion, Normal Capillary Refill Neurological: Alert, Oriented, Normal Cognition, No Motor/Sensory Deficits Psychiatric: Normal Affect, Normal Mood Skin: Warm, Dry, Normal Color, No Rash, Wound/Incision (5 cm superficial skin flap type laceration to the patient's posterior second phalanx. Actively bleeding at this time.) ED SKIN PROCEDURES - Laceration/Wound Repair Right Posterior Proximal Digit - 2nd (Index) Appearance: Superficial, Clean Distal NVT: Neuro & Vascular Intact Anesthetic Type: Digital Local Anesthesia - Lidocaine (Xylocaine): 1% Plain Local Anesthetic Volume: 5cc Skin Prep: Chlorhexidine (Hibiciens), Saline Exploration/Debridement/Repair: Wound Explored, In a Bloodless Field, Explored to Base, No Foreign Material Found Closed with: Sutures Lac/Wound length In cm: 5 Suture Size: 4-0 # of Sutures: 8 Suture Type: Prolene, Interrupted, Simple Sterile Dressing Applied: Nurse Tetanus Status Addressed: Yes Complications: No - Splinting Right 2nd Digit Splint Site: right index finger Pre-Procedure NV Status: Normal Post-Procedure NV Status: Normal Splint Material: Aluminum-Foam Applied & Form Fitted By: Nurse Provider Post-Splint Application NV Check: NV Status Normal, Good Position Progress/Comments: this is for finger immobilization for the sutures placed on the posterior surface of the finger Course - Vital Signs Last Recorded V/S: Last Vital Signs Temp 97.2 F 06/17/20 15:16 Pulse 117 H 06/17/20 15:16 Resp 20 06/17/20 15:16 BP 143/97 H 06/17/20 15:16 Pulse Ox 92 L 06/17/20 15:16 - Orders/Labs/Meds Meds: Medications Discontinued Medications Generic Name Dose Route Start Last Admin Trade Name Freq PRN Reason Stop Dose Admin Lidocaine HCl 10 ml 06/17/20 15:33 06/17/20 16:07 Lidocaine 1% 10 Ml Mdv INJECT 06/17/20 15:34 10 ml ONETIME ONE Administration Departure - Departure Time of Disposition: 15:36 Disposition: Home, Self-Care 01 Condition: Good Clinical Impression: Finger laceration Qualifiers: Encounter type: initial encounter Finger: index finger Damage to nail status: without damage Foreign body presence: without foreign body Laterality: right Qualified Code(s): S61.210A - Laceration without foreign body of right index finger without damage to nail, initial encounter - Discharge Information *PRESCRIPTION DRUG MONITORING PROGRAM REVIEWED*: No *COPY OF PRESCRIPTION DRUG MONITORING REPORT IN PATIENT DANITZA: No Instructions: Sutures, [place], or Adhesive Wound Closure, [id number] Referrals: Ana Benjamin MD [Primary Care Provider] - Forms: ED Department Discharge Care Plan Goals: You have been evaluated in the ED for your laceration. Sutures will need to stay in for 10 to 14 days. You may return to the ED or any clinic for removal. Your wound was dressed with a pressure dressing, due to you being on a blood thinner and the amount of bleeding that was coming from the wound. Please keep this in place for the next 24 to 48 hours before cleansing the wound. Please keep this area clean and dry, you may cleanse with regular soap and water. No vigorous scrubbing. Please try to avoid submerging the affected area in water for prolonged periods of time until the sutures are removed. Watch out for signs of infection like increased redness, swelling, pain at the laceration site, or if you should develop any fevers or chills. Please return to ED if your symptoms change or worsen. Sepsis Event Note (ED) - Evaluation Sepsis Screening Result: No Definite Risk - Focused Exam Vital Signs: Vital Signs Temp Pulse Resp BP Pulse Ox 06/17/20 15:16 97.2 F 117 H 20 143/97 H 92 L
== END 2020-06-17 16:35 | disposition home or self-care (01) ==
LOC: JD.ED 14:58
DX: S61.210A Laceration without foreign body of right index finger without damage to nail, initial encounter (principal); I48.91 Unspecified atrial fibrillation; I25.10 Atherosclerotic heart disease of native coronary artery without angina pectoris; I13.0 Hypertensive heart and chronic kidney disease with heart failure and stage 1 through stage 4 chronic kidney disease, or unspecified chronic kidney disease; N18.9 Chronic kidney disease, unspecified; I50.9 Heart failure, unspecified; E78.00 Pure hypercholesterolemia, unspecified; I25.2 Old myocardial infarction; J44.9 Chronic obstructive pulmonary disease, unspecified; K21.9 Gastro-esophageal reflux disease without esophagitis; E66.9 Obesity, unspecified; Z79.01 Long term (current) use of anticoagulants; Z79.899 Other long term (current) drug therapy; Z91.018 Allergy to other foods; Z88.6 Allergy status to analgesic agent; Z88.5 Allergy status to narcotic agent; Z88.8 Allergy status to other drugs, medicaments and biological substances; W26.8XXA Contact with other sharp object(s), not elsewhere classified, initial encounter
CPT/HCPCS: 12002; 99282; 99282-25

== ENCOUNTER 2020-10-08 14:46 | Emergency (ER) | payer OTHER ==
[2020-10-08] MEDS ORDERED: methylPREDNISolone Sodium Succinate 125 MG/2 ML SDV IVPUSH ONE (15:02)
[2020-10-08] MEDS ORDERED: Sodium Chloride 0.9% 10 ML Syringe FLUSH PRN (15:02)
[2020-10-08] MEDS ORDERED: Albuterol/Ipratropium 3.0-0.5 MG/3 ML Neb Soln NEB ONE (15:02)
[2020-10-08] MEDS ORDERED: HYDROmorphone 0.5 MG/0.5 ML Syringe IVPUSH ONE ×2 (15:11→16:52)
[2020-10-08] MEDS ORDERED: Azithromycin 250 MG Tab PO ONE (16:54)
--- NOTE | 2020-10-08 16:56 | EDM.PDOC ---
ED HPI GENERAL MEDICAL PROBLEM - General Chief Complaint: Cardiovascular Problem Stated Complaint: SOB/CHEST PAIN Time Seen by Provider: 10/08/20 14:51 Source of Information: Reports: Patient, RN Notes Reviewed - History of Present Illness INITIAL COMMENTS - FREE TEXT/NARRATIVE: 69 yr old male comes in with dyspnea, wheezing and chest pain. He has chronic sx but more short of breath than usual for the past 10 days, worse today. He has had productive cough, chills, no fever. Has had both covid vaccinations. Hx of severe COPD, longstanding CHF. Chest Pain Score (Numeric/FACES): 6 - Related Data Allergies Allergy/AdvReac Type Severity Reaction Status Date / Time acetaminophen [From Tylenol] Allergy Severe Airway Verified 06/17/20 15:21 Tightness aspirin Allergy Severe Airway Verified 06/17/20 15:21 Tightness horseradish Allergy Severe Airway Verified 06/17/20 15:21 Tightness ibuprofen Allergy Severe Airway Verified 06/17/20 15:21 Tightness meperidine HCl [From Demerol] Allergy Severe Airway Verified 06/17/20 15:21 Tightness morphine Allergy Severe Itching Verified 10/08/20 15:05 oxycodone Allergy Severe Rash Verified 10/08/20 15:05 sumatriptan [From Imitrex] Allergy Severe Cannot Verified 10/08/20 15:05 Remember sumatriptan succinate Allergy Severe Cannot Verified 10/08/20 15:05 [From Imitrex] Remember haloperidol [From Haldol] AdvReac Severe Change Verified 10/08/20 15:05 Mental Status haloperidol lactate AdvReac Severe Change Verified 10/08/20 15:05 [From Haldol] Mental Status hydromorphone [From Dilaudid] AdvReac Intermediate Change Verified 06/17/20 15:21 Mental Status ketorolac tromethamine AdvReac Intermediate Change Verified 06/17/20 15:21 [From Toradol] Mental Status antihistamines Allergy Severe Airway Uncoded 06/17/20 15:21 Tightness Home Meds: Home Meds Furosemide [Lasix] 40 mg PO DAILY 04/12/14 [History] PARoxetine HCl [Paxil] 20 mg PO DAILY 04/12/14 [History] Potassium Chloride 10 meq PO BID 04/12/14 [History] Tamsulosin HCl [Flomax] 0.4 mg PO DAILY 04/12/14 [History] Tiotropium [Spiriva HandiHaler] 1 cap INH DAILY 04/12/14 [History] Apixaban [Eliquis] 5 mg PO BID 01/23/16 [History] ClonazePAM [KlonoPIN] 0.5 mg PO BEDTIME 10/18/16 [History] Ipratropium [place] 1 spray NASBOTH BID PRN 10/18/16 [History] Cholecalciferol (Vitamin D3) [Vitamin D] 1,000 unit PO BID 04/13/17 [History] Mirtazapine 30 mg PO BEDTIME 04/13/17 [History] Magnesium Oxide 420 mg PO BEDTIME 02/19/18 [History] Budesonide/Formoterol [Symbicort 160-4.5 MCG] 2 puff INH DAILY 04/18/19 [History] Verapamil HCl [Verapamil Sr] 120 mg PO BID 08/19/19 [History] guaiFENesin [Guaifenesin] 400 mg PO BID 08/20/19 [History] Levalbuterol Tartrate [Xopenex HFA] 1 puff INH Q6H #1 inhaler 08/22/19 [Rx] Ondansetron [Zofran ODT] 4 mg PO Q6H PRN #20 tab.dis 12/05/19 [Rx] Cyanocobalamin (Vitamin B-12) [Vitamin B-12] 1 tab PO DAILY 12/10/19 [History] Famotidine 40 mg PO DAILY 12/10/19 [History] Finasteride 5 mg PO DAILY 12/10/19 [History] Lactobacillus Acidophilus [Acidophilus] 1 tab PO DAILY 12/10/19 [History] levalbuterol HCL [Xopenex] 1.25 mg NEB QID 12/10/19 [History] predniSONE [Prednisone] 40 mg PO DAILY #10 tablet 03/08/20 [Rx] Azithromycin 500 mg PO DAILY #3 tablet 06/08/20 [Rx] ClonazePAM [KlonoPIN] 0.5 mg PO BEDTIME #5 tablet 06/08/20 [Rx] Simvastatin [Zocor] 20 mg PO BEDTIME #20 tablet 06/08/20 [Rx] predniSONE [Prednisone] 50 mg PO DAILY #7 tablet 10/08/20 [Rx] Past Medical History HEENT History: Reports: Impaired Vision, Other (See Below) Other HEENT History: upper/lower dentures Cardiovascular History: Reports: Afib, CAD, Heart Failure, High Cholesterol, Hypertension, [place], Other (See Below) Other Cardiovascular History: stents in 1999, 5 [place] Respiratory History: Reports: COPD, Sleep Apnea Gastrointestinal History: Reports: GERD, PUD Genitourinary History: Reports: BPH, Chronic Renal Insuffiency Musculoskeletal History: Reports: None Neurological History: Reports: Headaches, Chronic Other Neuro History: patient reports minimal CARDENAS, will continue to monitor. Psychiatric History: Reports: Depression, PTSD Endocrine/Metabolic History: Reports: Obesity/BMI 30+, Other (See Below) Other Endocrine/Metabolic History: boardline diabetic- checks AM BS daily Hematologic History: Reports: Anticoagulation Therapy, B12 Deficiency - Infectious Disease History Infectious Disease History: Reports: Chicken Pox, Measles, Mumps - Past Surgical History Head Surgeries/Procedures: Reports: None HEENT Surgical History: Reports: Cataract Surgery, Naso-Sinus Surgery Other HEENT Surgeries/Procedures: OU Cardiovascular Surgical History: Reports: Coronary Artery Stent Other Cardiovascular Surgeries/Procedures: x3 Respiratory Surgical History: Reports: None GI Surgical History: Reports: Appendectomy, Colonoscopy, EGD Male Surgical History: Reports: Other (See Below) Other Male Surgeries/Procedures: testicle removed Endocrine Surgical History: Reports: None Neurological Surgical History: Reports: None Musculoskeletal Surgical History: Reports: Hip Replacement Other Musculoskeletal Surgeries/Procedures:: bilateral hip replacements Oncologic Surgical History: Reports: Other (See Below) Social & Family History - Family History Family Medical History: No Pertinent Family History Oncologic: Reports: Leukemia Other Oncologic Family History: Brother - Tobacco Use Tobacco Use Status *Q: Former Tobacco User Used Tobacco, but Quit: Yes Month/Year Tobacco Last Used: 20 - Caffeine Use Caffeine Use: Reports: Soda Other Caffeine Use: 2/day Caffeine Use Comment: 1-2 sodas - Recreational Drug Use Recreational Drug Use: No - Living Situation & Occupation Living situation: Reports: , with Spouse Occupation: Retired ED ROS GENERAL - Review of Systems Review Of Systems: See Below Constitutional: Denies: Fever, Chills, Diaphoresis HEENT: Denies: Sinus Problem, Throat Pain Respiratory: Reports: Wheezing, Cough, Sputum. Denies: Shortness of Breath Cardiovascular: Reports: Chest Pain GI/Abdominal: Denies: Abdominal Pain, Nausea, Vomiting Musculoskeletal: Reports: No Symptoms Skin: Reports: No Symptoms Neurological: Reports: Headache ED EXAM, GENERAL - Physical Exam Exam: See Below General Appearance: Alert, Anxious, Moderate Distress Eye Exam: Bilateral Eye: PERRL Throat/Mouth: Normal Inspection, Normal Oropharynx Head: Atraumatic Neck: Supple, Other (no JVD) Respiratory/Chest: Respiratory Distress, Wheezing (bilat) Cardiovascular: Irregularly Irregular GI/Abdominal: Soft, Non-Tender, Distended Back Exam: No: CVA Tenderness (L), CVA Tenderness (R) Extremities: Normal Inspection. No: Pedal Edema, Leg Pain, Increased Warmth, Redness Neurological: Alert, Oriented, No Motor/Sensory Deficits Skin Exam: Warm, Dry, Normal Color #1 Interpretation EKG Date: 10/08/20 Rhythm: Other (narrow complex irregular rythm, probable a fib.) Rate (Beats/Min): 96 [place]: Normal P-Wave: Absent QRS: Normal ST-T: Normal QT: Normal Course - Vital Signs Last Recorded V/S: Last Vital Signs Temp 97.0 F 10/08/20 17:11 Pulse 88 10/08/20 17:11 Resp 21 H 10/08/20 17:11 BP 110/69 10/08/20 17:11 Pulse Ox 93 L 10/08/20 17:11 - Orders/Labs/Meds Orders: Active Orders 24 hr Category Date Time Status Peripheral IV Insertion Adult [OM.PC] Stat Oth 10/08/20 15:04 Ordered EKG 12 Lead [EK] Stat Ther 10/08/20 15:00 Ordered Labs: Laboratory Tests 10/08/20 10/08/20 10/08/20 Range/Units 15:00 15:00 15:00 WBC 9.02 (4.23-9.07) K/mm3 RBC 4.26 L (4.63-6.08) M/mm3 Hgb 14.7 D (13.7-17.5) gm/dl Hct 43.5 (40.1-51.0) % MCV 102.1 H (79.0-92.2) fl MCH 34.5 H (25.7-32.2) pg MCHC 33.8 (32.2-35.5) g/dl RDW Std Deviation 54.9 H (35.1-43.9) fL Plt Count 198 (163-337) K/mm3 MPV 9.6 (9.4-12.3) fl Neut % (Auto) 77.1 H (34.0-67.9) % Lymph % (Auto) 11.2 L (21.8-53.1) % [place] % (Auto) 8.3 (5.3-12.2) % Eos % (Auto) 2.8 (0.8-7.0) Baso % (Auto) 0.4 (0.1-1.2) % Neut # (Auto) 6.95 H (1.78-5.38) K/mm3 Lymph # (Auto) 1.01 L (1.32-3.57) K/mm3 [place] # (Auto) 0.75 (0.30-0.82) K/mm3 Eos # (Auto) 0.25 (0.04-0.54) K/mm3 Baso # (Auto) 0.04 (0.01-0.08) K/mm3 Sodium 144 (136-145) mEq/L Potassium 3.8 (3.5-5.1) mEq/L Chloride 105 (98-107) mEq/L Carbon Dioxide 30 (21-32) mEq/L Anion Gap 12.8 (5-15) BUN 19 H (7-18) mg/dL Creatinine 1.6 H (0.7-1.3) mg/dL Est Cr Clr Drug Dosing 36.84 mL/min Estimated GFR (MDRD) 43 (>60) mL/min BUN/Creatinine Ratio 11.9 L (14-18) Glucose 116 H (70-99) mg/dL Calcium 9.0 (8.5-10.1) mg/dL Total Bilirubin 0.5 (0.2-1.0) mg/dL AST 16 (15-37) U/L ALT 27 (16-63) U/L Alkaline Phosphatase 128 H (46-116) U/L Troponin I < 0.017 (0.00-0.056) ng/mL NT-Pro-B Natriuret Pep 500 H (0-125) pg/mL Total Protein 7.2 (6.4-8.2) g/dl Albumin 3.6 (3.4-5.0) g/dl Globulin 3.6 gm/dL Albumin/Globulin Ratio 1.0 (1-2) Meds: Medications Discontinued Medications Generic Name Dose Route Start Last Admin Trade Name Estivenq PRN Reason Stop Dose Admin Albuterol/Ipratropium 3 ml 10/08/20 15:02 10/08/20 15:11 Albuterol/Ipratropium 3.0-0.5 Mg/3 Ml Neb Soln NEB 10/08/20 15:03 3 ml ONETIME ONE Administration Azithromycin 500 mg 10/08/20 16:54 10/08/20 17:07 Azithromycin 250 Mg Tab PO 10/08/20 16:55 500 mg ONETIME ONE Administration Hydromorphone HCl 0.25 mg 10/08/20 15:11 10/08/20 15:26 Hydromorphone 0.5 Mg/0.5 Ml Syringe IVPUSH 10/08/20 15:12 0.25 mg ONETIME ONE Administration Hydromorphone HCl 0.25 mg 10/08/20 16:52 10/08/20 17:08 Hydromorphone 0.5 Mg/0.5 Ml Syringe IVPUSH 10/08/20 16:53 0.25 mg ONETIME ONE Administration Methylprednisolone Sodium Succinate 125 mg 10/08/20 15:02 10/08/20 15:07 Methylprednisolone Sodium Succinate 125 Mg/2 Ml Sdv IVPUSH 10/08/20 15:03 125 mg ONETIME ONE Administration Sodium Chloride 10 ml 10/08/20 15:02 10/08/20 15:17 Sodium Chloride 0.9% 10 Ml Syringe FLUSH 10 ml ASDIRECTED PRN Administration Keep Vein Open - Re-Assessments/Exams Free Text/Narrative Re-Assessment/Exam: 10/09/20 07:58 CXR did not show acute infiltrates. Trop nl, BNP relatively nl. Feeling better after duoneb. Did also give solumedrol IV and dilaudid 0.25 mg IV times 2 for [place]. Feeling much better at time of discharge. Sats were 93 to 94 with 02 at 2 to 3 L. Pt feels comfortable to go home, has home 02 to use until he gets feeling/breathing better. Uses o2 with CPAP at night and occcasionally as needed during the day. Departure - Departure Time of Disposition: 17:10 Disposition: Home, Self-Care 01 Condition: Fair Clinical Impression: Bronchitis, COPD exacerbation Prescriptions: predniSONE [Prednisone] 50 mg PO DAILY #7 tablet Instructions: Acute Bronchitis, Adult, [id number] Referrals: Ana Benjamin MD [Primary Care Provider] - Forms: ED Department Discharge Additional Instructions: Zithromax as prescribed, prednisone as prescribed, 50 mg daily for the next 4 days and than 1/2 tablet or 25 mg daily for the next 4 days. Prescription has been sent to [facility]. You can fill that tomorrow morning along with the precription for a Z Pack. [facility] early next week. Use home oxygen even during the day as needed until getting back to normal. Return to ED as needed if symptoms worsening in any way. Sepsis Event Note (ED) - Evaluation Sepsis Screening Result: No Definite Risk - My Orders Last 24 Hours: My Active Orders 10/08/20 15:00 EKG 12 Lead [EK] Stat 10/08/20 15:04 Peripheral IV Insertion Adult [OM.PC] Stat - Assessment/Plan Last 24 Hours: My Active Orders 10/08/20 15:00 EKG 12 Lead [EK] Stat 10/08/20 15:04 Peripheral IV Insertion Adult [OM.PC] Stat
[2020-10-08 17:12] VITALS: BP 110/69; PULSE 88
--- NOTE | 2020-10-08 18:15 | CR ---
Chest: Portable view of the chest was obtained. Comparison: Prior chest x-ray of 06/06/20. Heart has an unusual configuration which is stable. Slight scarring is noted off the right cardiac apex. Lungs are clear with no acute parenchymal change. No acute osseous abnormality is appreciated. Impression: 1. Stable chest x-ray from prior study of 06/06/20. 2. Nothing acute is seen. Diagnostic code #2
== END 2020-10-08 17:45 | disposition home or self-care (01) ==
LOC: JD.ED 14:46
DX: J44.1 Chronic obstructive pulmonary disease with (acute) exacerbation (principal); I48.91 Unspecified atrial fibrillation; I25.10 Atherosclerotic heart disease of native coronary artery without angina pectoris; I13.0 Hypertensive heart and chronic kidney disease with heart failure and stage 1 through stage 4 chronic kidney disease, or unspecified chronic kidney disease; N18.9 Chronic kidney disease, unspecified; I50.9 Heart failure, unspecified; E78.00 Pure hypercholesterolemia, unspecified; I25.2 Old myocardial infarction; K21.9 Gastro-esophageal reflux disease without esophagitis; E66.9 Obesity, unspecified; Z68.32 Body mass index [BMI] 32.0-32.9, adult; Z87.891 Personal history of nicotine dependence; Z79.01 Long term (current) use of anticoagulants; Z79.899 Other long term (current) drug therapy; Z88.6 Allergy status to analgesic agent; Z88.8 Allergy status to other drugs, medicaments and biological substances; Z91.018 Allergy to other foods; Z88.5 Allergy status to narcotic agent
CPT/HCPCS: 36415; 71045; 80053; 83880; 84484; 85025; 93005; 94640; 96374; 96375; 96376; 99285; A9270; J1170; J2930; 93010; 99284; J7620-GY

== ENCOUNTER 2020-11-18 10:03 | Emergency (ER) | payer OTHER ==
[2020-11-18] MEDS ORDERED: Sodium Chloride 0.9% 10 ML Syringe FLUSH PRN (10:10)
[2020-11-18] MEDS ORDERED: methylPREDNISolone Sodium Succinate 125 MG/2 ML SDV IVPUSH ONE (10:12)
[2020-11-18] MEDS ORDERED: Albuterol/Ipratropium 3.0-0.5 MG/3 ML Neb Soln NEB ONE (11:49)
--- NOTE | 2020-11-18 12:41 | EDM.PDOC ---
ED HPI GENERAL MEDICAL PROBLEM - General Chief Complaint: Respiratory Problem Stated Complaint: [facility] Time Seen by Provider: 11/18/20 10:10 Source of Information: Reports: Patient, EMS History Limitations: Reports: No Limitations - History of Present Illness INITIAL COMMENTS - FREE TEXT/NARRATIVE: The patient presents by [facility] for shortness of breath. This has been going on for a couple of days. When EMS arrived he was 88% on his oxygen and having trouble breathing. He had done 3 of his treatments back to back without any relief. They upped his oxygen and gave him some racemic epi. That did help some. He has a cough but no fever or chills. He has no chest pain. He has a history of COPD and atrial fibrillation. He has no abdominal pain, [place] or vomiting. Onset: Gradual Duration: Day(s): Severity: Moderate Improves with: Reports: None Worsens with: Reports: None Associated Symptoms: Reports: Cough, Shortness of Breath. Denies: Chest Pain, Fever/Chills, Headaches, Nausea/Vomiting - Related Data Allergies Allergy/AdvReac Type Severity Reaction Status Date / Time acetaminophen [From Tylenol] Allergy Severe Airway Verified 06/17/20 15:21 Tightness aspirin Allergy Severe Airway Verified 06/17/20 15:21 Tightness horseradish Allergy Severe Airway Verified 06/17/20 15:21 Tightness ibuprofen Allergy Severe Airway Verified 06/17/20 15:21 Tightness meperidine HCl [From Demerol] Allergy Severe Airway Verified 06/17/20 15:21 Tightness morphine Allergy Severe Itching Verified 10/08/20 15:05 oxycodone Allergy Severe Rash Verified 10/08/20 15:05 sumatriptan [From Imitrex] Allergy Severe Cannot Verified 10/08/20 15:05 Remember sumatriptan succinate Allergy Severe Cannot Verified 10/08/20 15:05 [From Imitrex] Remember haloperidol [From Haldol] AdvReac Severe Change Verified 10/08/20 15:05 Mental Status haloperidol lactate AdvReac Severe Change Verified 10/08/20 15:05 [From Haldol] Mental Status hydromorphone [From Dilaudid] AdvReac Intermediate Change Verified 06/17/20 15:21 Mental Status ketorolac tromethamine AdvReac Intermediate Change Verified 06/17/20 15:21 [From Toradol] Mental Status antihistamines Allergy Severe Airway Uncoded 06/17/20 15:21 Tightness Home Meds: Home Meds Furosemide [Lasix] 40 mg PO DAILY 04/12/14 [History] PARoxetine HCl [Paxil] 20 mg PO DAILY 04/12/14 [History] Potassium Chloride 10 meq PO BID 04/12/14 [History] Tamsulosin HCl [Flomax] 0.4 mg PO DAILY 04/12/14 [History] Tiotropium [Spiriva HandiHaler] 1 cap INH DAILY 04/12/14 [History] Apixaban [Eliquis] 5 mg PO BID 01/23/16 [History] Ipratropium [place] 1 spray NASBOTH BID PRN 10/18/16 [History] Cholecalciferol (Vitamin D3) [Vitamin D] 1,000 unit PO BID 04/13/17 [History] Mirtazapine 30 mg PO BEDTIME 04/13/17 [History] Magnesium Oxide 420 mg PO BEDTIME 02/19/18 [History] Budesonide/Formoterol [Symbicort 160-4.5 MCG] 2 puff INH BID 04/18/19 [History] Verapamil HCl [Verapamil Sr] 120 mg PO DAILY 08/19/19 [History] guaiFENesin [Guaifenesin] 400 mg PO BID 08/20/19 [History] Levalbuterol Tartrate [Xopenex HFA] 1 puff INH Q6H #1 inhaler 08/22/19 [Rx] Cyanocobalamin (Vitamin B-12) [Vitamin B-12] 1 tab PO DAILY 12/10/19 [History] Famotidine 40 mg PO DAILY 12/10/19 [History] Finasteride 5 mg PO DAILY 12/10/19 [History] Lactobacillus Acidophilus [Acidophilus] 1 tab PO DAILY 12/10/19 [History] levalbuterol HCL [Xopenex] 1.25 mg NEB QID 12/10/19 [History] ClonazePAM [KlonoPIN] 0.5 mg PO BEDTIME #5 tablet 06/08/20 [Rx] Codeine/Promethazine [Phenergan with Codeine] 5 - 10 ml PO Q6HR PRN #300 ml 11/18/20 [Rx] Nitroglycerin 0.4 mg SL ASDIRECTED 11/18/20 [History] Simvastatin [Zocor] 10 mg PO BEDTIME 11/18/20 [History] predniSONE [Prednisone] 40 mg PO DAILY #10 tablet 11/18/20 [Rx] Past Medical History HEENT History: Reports: Impaired Vision, Other (See Below) Other HEENT History: upper/lower dentures Cardiovascular History: Reports: Afib, CAD, Heart Failure, High Cholesterol, Hypertension, [place], Other (See Below) Other Cardiovascular History: stents in 1999, 5 IN Respiratory History: Reports: COPD, Intubation, Previous, Sleep Apnea Gastrointestinal History: Reports: GERD, PUD Genitourinary History: Reports: BPH, Chronic Renal Insuffiency Musculoskeletal History: Reports: None Neurological History: Reports: Headaches, Chronic Other Neuro History: patient reports minimal CARDENAS, will continue to monitor. Psychiatric History: Reports: Depression, PTSD Endocrine/Metabolic History: Reports: Obesity/BMI 30+, Other (See Below) Other Endocrine/Metabolic History: boardline diabetic- checks AM BS daily Hematologic History: Reports: Anticoagulation Therapy, B12 Deficiency - Infectious Disease History Infectious Disease History: Reports: Chicken Pox, Measles, Mumps - Past Surgical History Head Surgeries/Procedures: Reports: None HEENT Surgical History: Reports: Cataract Surgery, Naso-Sinus Surgery Other HEENT Surgeries/Procedures: OU Cardiovascular Surgical History: Reports: Coronary Artery Stent Other Cardiovascular Surgeries/Procedures: x3 Respiratory Surgical History: Reports: None GI Surgical History: Reports: Appendectomy, Colonoscopy, EGD Male Surgical History: Reports: Other (See Below) Other Male Surgeries/Procedures: testicle removed Endocrine Surgical History: Reports: None Neurological Surgical History: Reports: None Musculoskeletal Surgical History: Reports: Hip Replacement Other Musculoskeletal Surgeries/Procedures:: bilateral hip replacements Oncologic Surgical History: Reports: Other (See Below) Social & Family History - Family History Family Medical History: No Pertinent Family History Oncologic: Reports: Leukemia Other Oncologic Family History: Brother - Caffeine Use Caffeine Use: Reports: Soda Other Caffeine Use: 2/day Caffeine Use Comment: 1-2 sodas - Living Situation & Occupation Living situation: Reports: , with Spouse Occupation: Retired ED ROS GENERAL - Review of Systems Review Of Systems: See Below Constitutional: Reports: No Symptoms HEENT: Reports: No Symptoms Respiratory: Reports: Shortness of Breath, Cough Cardiovascular: Reports: No Symptoms Endocrine: Reports: No Symptoms GI/Abdominal: Reports: No Symptoms : Reports: No Symptoms Musculoskeletal: Reports: No Symptoms ED EXAM, GENERAL - Physical Exam Exam: See Below Exam Limited By: No Limitations General Appearance: Alert, Mild Distress Ears: Normal External Exam Nose: Normal Inspection Head: Atraumatic, Normocephalic Neck: Normal Inspection Respiratory/Chest: No Respiratory Distress, Decreased Breath Sounds, Rhonchi Cardiovascular: No Edema, No Murmur, Irregularly Irregular GI/Abdominal: Soft, Non-Tender, No Organomegaly, No Mass Back Exam: Normal Inspection Extremities: Normal Inspection #1 Interpretation EKG Date: 11/18/20 Time: 10:05 Rhythm: A-Fib Rate (Beats/Min): 116 [place]: Normal P-Wave: Absent QRS: Normal ST-T: Normal QT: Normal Course - Vital Signs Last Recorded V/S: Last Vital Signs Temp Pulse 91 11/18/20 13:32 Resp 20 11/18/20 13:32 BP Pulse Ox 90 L 11/18/20 13:32 - Orders/Labs/Meds Orders: Active Orders 24 hr Category Date Time Status Cardiac Monitoring [RC] . DIRECTED Care 11/18/20 10:11 Active EKG Documentation Completion [RC] STAT Care 11/18/20 10:11 Active Oxygen Therapy [RC] PRN Care 11/18/20 10:11 Active Peripheral IV Care [RC] . DIRECTED Care 11/18/20 10:11 Active RT Aerosol Therapy [RC] ASDIRECTED Care 11/18/20 11:49 Active Chest 1V Frontal [CR] Stat Exams 11/18/20 10:11 Taken BLOOD CULTURE [MREF] Stat Lab 11/18/20 10:41 Received BLOOD CULTURE [MREF] Stat Lab 11/18/20 10:47 Received Sodium Chloride 0.9% [Saline Flush] Med 11/18/20 10:10 Active 10 ml FLUSH ASDIRECTED PRN Peripheral IV Insertion Adult [OM.PC] Stat Oth 11/18/20 10:10 Ordered Medication Orders Sodium Chloride (Sodium Chloride 0.9% 10 Ml Syringe) 10 ml FLUSH ASDIRECTED PRN PRN Reason: Keep Vein Open Last Admin: 11/18/20 10:23 Dose: 10 ml Documented by: TRENA Labs: Laboratory Tests 11/18/20 11/18/20 11/18/20 Range/Units 10:16 10:16 10:16 WBC 8.53 (4.23-9.07) K/mm3 RBC 4.28 L (4.63-6.08) M/mm3 Hgb 14.6 (13.7-17.5) gm/dl Hct 44.0 (40.1-51.0) % MCV 102.8 H (79.0-92.2) fl MCH 34.1 H (25.7-32.2) pg MCHC 33.2 (32.2-35.5) g/dl RDW Std Deviation 57.4 H (35.1-43.9) fL Plt Count 198 (163-337) K/mm3 MPV 9.3 L (9.4-12.3) fl Neut % (Auto) 69.4 H (34.0-67.9) % Lymph % (Auto) 18.5 L (21.8-53.1) % Jay % (Auto) 7.9 (5.3-12.2) % Eos % (Auto) 3.2 (0.8-7.0) Baso % (Auto) 0.5 (0.1-1.2) % Neut # (Auto) 5.93 H (1.78-5.38) K/mm3 Lymph # (Auto) 1.58 (1.32-3.57) K/mm3 Jay # (Auto) 0.67 (0.30-0.82) K/mm3 Eos # (Auto) 0.27 (0.04-0.54) K/mm3 Baso # (Auto) 0.04 (0.01-0.08) K/mm3 PT 10.6 (9.7-12.0) SECONDS INR 0.99 APTT 27.2 (21.7-31.4) SECONDS Puncture Site ABG pH (7.35-7.45) ABG pCO2 (35.0-45.0) mmHg ABG pO2 (80.0-100.0) mmHg ABG HCO3 (22.0-26.0) meq/L ABG O2 Saturation (96.0-97.0) % ABG Base Excess (-2-2.0) Oskar Test A-a Gradient mmHg O2 Delivery Device Oxygen Flow Rate FiO2 (21.00-100.00) % Sodium 144 (136-145) mEq/L Potassium 4.5 (3.5-5.1) mEq/L Chloride 106 (98-107) mEq/L Carbon Dioxide 29 (21-32) mEq/L Anion Gap 13.5 (5-15) BUN 19 H (7-18) mg/dL Creatinine 1.4 H (0.7-1.3) mg/dL Est Cr Clr Drug Dosing TNP Estimated GFR (MDRD) 50 (>60) mL/min BUN/Creatinine Ratio 13.6 L (14-18) Glucose 131 H (70-99) mg/dL Lactic Acid (0.4-2.0) mmol/L Calcium 8.9 (8.5-10.1) mg/dL Total Bilirubin 0.7 (0.2-1.0) mg/dL AST 18 (15-37) U/L ALT 22 (16-63) U/L Alkaline Phosphatase 123 H (46-116) U/L C-Reactive Protein 1.5 H* (<1.0) mg/dL Total Protein 6.8 (6.4-8.2) g/dl Albumin 3.2 L (3.4-5.0) g/dl Globulin 3.6 gm/dL Albumin/Globulin Ratio 0.9 L (1-2) SARS-CoV-2 RNA (JOHN) (NEGATIVE) 11/18/20 11/18/20 11/18/20 Range/Units 10:16 12:18 13:06 WBC (4.23-9.07) K/mm3 RBC (4.63-6.08) M/mm3 Hgb (13.7-17.5) gm/dl Hct (40.1-51.0) % MCV (79.0-92.2) fl MCH (25.7-32.2) pg MCHC (32.2-35.5) g/dl RDW Std Deviation (35.1-43.9) fL Plt Count (163-337) K/mm3 MPV (9.4-12.3) fl Neut % (Auto) (34.0-67.9) % Lymph % (Auto) (21.8-53.1) % Jay % (Auto) (5.3-12.2) % Eos % (Auto) (0.8-7.0) Baso % (Auto) (0.1-1.2) % Neut # (Auto) (1.78-5.38) K/mm3 Lymph # (Auto) (1.32-3.57) K/mm3 Jay # (Auto) (0.30-0.82) K/mm3 Eos # (Auto) (0.04-0.54) K/mm3 Baso # (Auto) (0.01-0.08) K/mm3 PT (9.7-12.0) SECONDS INR APTT (21.7-31.4) SECONDS Puncture Site Rt radial ABG pH 7.39 (7.35-7.45) ABG pCO2 49.1 H (35.0-45.0) mmHg ABG pO2 64.0 L (80.0-100.0) mmHg ABG HCO3 28.8 H (22.0-26.0) meq/L ABG O2 Saturation 90.2 L (96.0-97.0) % ABG Base Excess 3.3 H (-2-2.0) Oskar Test Positive A-a Gradient 75 mmHg O2 Delivery Device Nasal cannula Oxygen Flow Rate 2.0 FiO2 28.00 (21.00-100.00) % Sodium (136-145) mEq/L Potassium (3.5-5.1) mEq/L Chloride (98-107) mEq/L Carbon Dioxide (21-32) mEq/L Anion Gap (5-15) BUN (7-18) mg/dL Creatinine (0.7-1.3) mg/dL Est Cr Clr Drug Dosing Estimated GFR (MDRD) (>60) mL/min BUN/Creatinine Ratio (14-18) Glucose (70-99) mg/dL Lactic Acid 1.9 (0.4-2.0) mmol/L Calcium (8.5-10.1) mg/dL Total Bilirubin (0.2-1.0) mg/dL AST (15-37) U/L ALT (16-63) U/L Alkaline Phosphatase (46-116) U/L C-Reactive Protein (<1.0) mg/dL Total Protein (6.4-8.2) g/dl Albumin (3.4-5.0) g/dl Globulin gm/dL Albumin/Globulin Ratio (1-2) SARS-CoV-2 RNA (JOHN) Negative (NEGATIVE) Meds: Medications Generic Name Dose Route Start Last Admin Trade Name Freq PRN Reason Stop Dose Admin Sodium Chloride 10 ml 11/18/20 10:10 11/18/20 10:23 Sodium Chloride 0.9% 10 Ml Syringe FLUSH 10 ml ASDIRECTED PRN Administration Keep Vein Open Discontinued Medications Generic Name Dose Route Start Last Admin Trade Name Freq PRN Reason Stop Dose Admin Albuterol/Ipratropium 3 ml 11/18/20 11:49 11/18/20 12:07 Albuterol/Ipratropium 3.0-0.5 Mg/3 Ml Neb Soln NEB 11/18/20 11:50 3 ml ONETIME ONE Administration Methylprednisolone Sodium Succinate 125 mg 11/18/20 10:12 11/18/20 10:23 Methylprednisolone Sodium Succinate 125 Mg/2 Ml Sdv IVPUSH 11/18/20 10:13 125 mg ONETIME ONE Administration - Re-Assessments/Exams Free Text/Narrative Re-Assessment/Exam: 11/18/20 12:40 I ordered oxygen, IV saline lock, solu-medrol 125mg IV, duoneb, labs, CXR and EKG. 11/18/20 12:41 His CXR shows COPD changes but no infiltrates. His EKG shows atrial fibrillation at a rate of 116 with nothing acute. His CBC looks good. His PT and PTT look good. His creatinine is slightly elevated at 1.4. His glucose is elevated at 131. His lactic acid is normal at 1.9. His alk phos was elevated at 123. His CRP is elevated slightly at 1.5. I am waiting on the COVID test and I feel he needs to be admitted. 11/18/20 14:08 The COVID is negative. I talked to the patient and I wanted to admit him but he said he is feeling much better and would like to go home. He has oxygen at home. I will get him on prednisone and some phenergan with codeine. Departure - Departure Time of Disposition: 14:10 Disposition: Home, Self-Care 01 Condition: Good Clinical Impression: COPD exacerbation - Discharge Information *PRESCRIPTION DRUG MONITORING PROGRAM REVIEWED*: Not Applicable *COPY OF PRESCRIPTION DRUG MONITORING REPORT IN PATIENT DANITZA: Not Applicable Prescriptions: Codeine/Promethazine [Phenergan with Codeine] 5 - 10 ml PO Q6HR PRN #300 ml PRN Reason: Cough predniSONE [Prednisone] 40 mg PO DAILY #10 tablet Referrals: PCP,None [Primary Care Provider] - Ana Benjamin MD [Ordering Only Provider] - 1 Week Forms: ED Department Discharge Additional Instructions: Take your medications as prescribed. Take the prednisone 40mg daily for 5 days starting tomorrow. Take the phenergan with codeine 5 to 10mls every 6 hours as needed for cough. Follow up with the [facility] this week. Please return if you are worse. Sepsis Event Note (ED) - Evaluation Sepsis Screening Result: No Definite Risk - Focused Exam Vital Signs: Vital Signs Pulse Resp Pulse Ox Pulse Ox 11/18/20 13:32 91 20 90 L 11/18/20 12:19 92 L 11/18/20 11:49 92 L - My Orders Last 24 Hours: My Active Orders 11/18/20 10:10 Sodium Chloride 0.9% [Saline Flush] 10 ml FLUSH ASDIRECTED PRN Peripheral IV Insertion Adult [OM.PC] Stat 11/18/20 10:11 Cardiac Monitoring [RC] . DIRECTED EKG Documentation Completion [RC] STAT Oxygen Therapy [RC] PRN Peripheral IV Care [RC] . DIRECTED Chest 1V Frontal [CR] Stat 11/18/20 10:41 BLOOD CULTURE [MREF] Stat 11/18/20 10:47 BLOOD CULTURE [MREF] Stat 11/18/20 11:49 RT Aerosol Therapy [RC] ASDIRECTED - Assessment/Plan Last 24 Hours: My Active Orders 11/18/20 10:10 Sodium Chloride 0.9% [Saline Flush] 10 ml FLUSH ASDIRECTED PRN Peripheral IV Insertion Adult [OM.PC] Stat 11/18/20 10:11 Cardiac Monitoring [RC] . DIRECTED EKG Documentation Completion [RC] STAT Oxygen Therapy [RC] PRN Peripheral IV Care [RC] . DIRECTED Chest 1V Frontal [CR] Stat 11/18/20 10:41 BLOOD CULTURE [MREF] Stat 11/18/20 10:47 BLOOD CULTURE [MREF] Stat 11/18/20 11:49 RT Aerosol Therapy [RC] ASDIRECTED
[2020-11-18 13:33] VITALS: PULSE 91
--- NOTE | 2020-11-18 20:10 | CR ---
Chest: Portable view of the chest was obtained. Comparison: Prior chest x-ray of 10/08/20. Heart has an unusual configuration which is stable from prior chest x-ray. Upper mediastinum is normal. Lungs are clear with no acute parenchymal change. No acute osseous abnormality is appreciated. Impression: 1. Stable chest x-ray from previous exam. 2. Nothing acute is appreciated on portable chest x-ray. Diagnostic code #2
== END 2020-11-18 15:30 | disposition home or self-care (01) ==
LOC: JD.ED 10:03
DX: J44.1 Chronic obstructive pulmonary disease with (acute) exacerbation (principal); I48.91 Unspecified atrial fibrillation; I25.10 Atherosclerotic heart disease of native coronary artery without angina pectoris; I13.0 Hypertensive heart and chronic kidney disease with heart failure and stage 1 through stage 4 chronic kidney disease, or unspecified chronic kidney disease; N18.9 Chronic kidney disease, unspecified; I50.9 Heart failure, unspecified; E78.00 Pure hypercholesterolemia, unspecified; I25.2 Old myocardial infarction; K21.9 Gastro-esophageal reflux disease without esophagitis; N40.0 Benign prostatic hyperplasia without lower urinary tract symptoms; E66.9 Obesity, unspecified; Z79.01 Long term (current) use of anticoagulants; Z88.6 Allergy status to analgesic agent; Z88.8 Allergy status to other drugs, medicaments and biological substances; Z91.018 Allergy to other foods; Z88.5 Allergy status to narcotic agent; Z79.899 Other long term (current) drug therapy; Z20.822 Contact with and (suspected) exposure to COVID-19
CPT/HCPCS: 36415; 36600; 71045; 80053; 82803; 83605; 85025; 85610; 85730; 86140; 87040; 87635; 93005; 94640; 96374; 99285; J2930; 93010; 99284; J7620-GY; U0002

== ENCOUNTER 2020-12-10 16:52 | Emergency (ER) | payer OTHER ==
[2020-12-10] MEDS ORDERED: Albuterol/Ipratropium 3.0-0.5 MG/3 ML Neb Soln NEB ONE ×2 (16:54→19:53)
[2020-12-10] MEDS ORDERED: Sodium Chloride 0.9% 10 ML Syringe FLUSH PRN (16:54)
[2020-12-10] MEDS ORDERED: Ondansetron 4 MG/2 ML SDV IVPUSH ONE (16:55)
[2020-12-10] MEDS ORDERED: Albuterol/Ipratropium 3.0-0.5 MG/3 ML Neb Soln ONE (16:56)
[2020-12-10 17:03] VITALS: BP 123/91; PULSE 122
[2020-12-10] MEDS ORDERED: methylPREDNISolone Sodium Succinate 125 MG/2 ML SDV IVPUSH ONE (17:49)
[2020-12-10] MEDS ORDERED: HYDROmorphone 0.5 MG/0.5 ML Syringe IVPUSH ONE (17:53)
--- NOTE | 2020-12-10 19:05 | EDM.PDOC ---
ED HPI GENERAL MEDICAL PROBLEM - General Chief Complaint: Respiratory Problem Stated Complaint: [facility] Time Seen by Provider: 12/10/20 16:53 Source of Information: Reports: Patient, EMS History Limitations: Reports: No Limitations - History of Present Illness INITIAL COMMENTS - FREE TEXT/NARRATIVE: The patient presents by [facility] for respiratory distress. This started today. His oxygen saturations were in the 70s. EMS put him on an nonrebreather and gave him oxygen, epinephrine and albuterol. He has not had a fever, chills, or chest pain recently. He has oxygen at home but sometimes during the day he does not needed it. He has not been around anyone with COVID 19. He does have a cough. Onset: Gradual Duration: Hour(s): Severity: Severe Improves with: Reports: None Worsens with: Reports: None Associated Symptoms: Reports: Cough, Shortness of Breath. Denies: Chest Pain, Fever/Chills, Headaches, Nausea/Vomiting - Related Data Allergies Allergy/AdvReac Type Severity Reaction Status Date / Time acetaminophen [From Tylenol] Allergy Severe Airway Verified 12/10/20 17:03 Tightness aspirin Allergy Severe Airway Verified 12/10/20 17:03 Tightness horseradish Allergy Severe Airway Verified 12/10/20 17:03 Tightness ibuprofen Allergy Severe Airway Verified 12/10/20 17:03 Tightness meperidine HCl [From Demerol] Allergy Severe Airway Verified 12/10/20 17:03 Tightness oxycodone Allergy Intermediate Rash Verified 12/10/20 17:03 morphine Allergy Mild Itching Verified 12/10/20 17:03 sumatriptan [From Imitrex] Allergy Unknown Cannot Verified 12/10/20 17:03 Remember sumatriptan succinate Allergy Unknown Cannot Verified 12/10/20 17:03 [From Imitrex] Remember haloperidol [From Haldol] AdvReac Intermediate Change Verified 12/10/20 17:03 Mental Status haloperidol lactate AdvReac Intermediate Change Verified 12/10/20 17:03 [From Haldol] Mental Status hydromorphone [From Dilaudid] AdvReac Intermediate Change Verified 12/10/20 17:03 Mental Status ketorolac tromethamine AdvReac Intermediate Change Verified 12/10/20 17:03 [From Toradol] Mental Status antihistamines Allergy Severe Airway Uncoded 06/17/20 15:21 Tightness Home Meds: Home Meds Furosemide [Lasix] 40 mg PO DAILY 04/12/14 [History] PARoxetine HCl [Paxil] 20 mg PO DAILY 04/12/14 [History] Potassium Chloride 10 meq PO BID 04/12/14 [History] Tamsulosin HCl [Flomax] 0.4 mg PO DAILY 04/12/14 [History] Tiotropium [Spiriva HandiHaler] 1 cap INH DAILY 04/12/14 [History] Apixaban [Eliquis] 5 mg PO BID 01/23/16 [History] Ipratropium [place] 1 spray NASBOTH BID PRN 10/18/16 [History] Cholecalciferol (Vitamin D3) [Vitamin D] 1,000 unit PO BID 04/13/17 [History] Mirtazapine 30 mg PO BEDTIME 04/13/17 [History] Magnesium Oxide 420 mg PO BEDTIME 02/19/18 [History] Budesonide/Formoterol [Symbicort 160-4.5 MCG] 2 puff INH BID 04/18/19 [History] Verapamil HCl [Verapamil Sr] 120 mg PO DAILY 08/19/19 [History] guaiFENesin [Guaifenesin] 400 mg PO BID 08/20/19 [History] Levalbuterol Tartrate [Xopenex HFA] 1 puff INH Q6H #1 inhaler 08/22/19 [Rx] Cyanocobalamin (Vitamin B-12) [Vitamin B-12] 1 tab PO DAILY 12/10/19 [History] Famotidine 40 mg PO DAILY 12/10/19 [History] Finasteride 5 mg PO DAILY 12/10/19 [History] Lactobacillus Acidophilus [Acidophilus] 1 tab PO DAILY 12/10/19 [History] levalbuterol HCL [Xopenex] 1.25 mg NEB QID 12/10/19 [History] ClonazePAM [KlonoPIN] 0.5 mg PO BEDTIME #5 tablet 06/08/20 [Rx] Codeine/Promethazine [Phenergan with Codeine] 5 - 10 ml PO Q6HR PRN #300 ml 11/18/20 [Rx] Nitroglycerin 0.4 mg SL ASDIRECTED 11/18/20 [History] Simvastatin [Zocor] 10 mg PO BEDTIME 11/18/20 [History] predniSONE [Prednisone] 40 mg PO DAILY #10 tablet 11/18/20 [Rx] predniSONE [Prednisone] 40 mg PO DAILY #14 tablet 12/10/20 [Rx] Past Medical History HEENT History: Reports: Impaired Vision, Other (See Below) Other HEENT History: upper/lower dentures Cardiovascular History: Reports: Afib, CAD, Heart Failure, High Cholesterol, Hypertension, [place], Other (See Below) Other Cardiovascular History: stents in 1999, [place] Respiratory History: Reports: COPD, Intubation, Previous, Sleep Apnea Gastrointestinal History: Reports: GERD, PUD Genitourinary History: Reports: BPH, Chronic Renal Insuffiency Musculoskeletal History: Reports: None Neurological History: Reports: Headaches, Chronic Other Neuro History: patient reports minimal CARDENAS, will continue to monitor. Psychiatric History: Reports: Depression, PTSD Endocrine/Metabolic History: Reports: Obesity/BMI 30+, Other (See Below) Other Endocrine/Metabolic History: boardline diabetic- checks AM BS daily Hematologic History: Reports: Anticoagulation Therapy, B12 Deficiency - Infectious Disease History Infectious Disease History: Reports: Chicken Pox, Measles, Mumps - Past Surgical History Head Surgeries/Procedures: Reports: None HEENT Surgical History: Reports: Cataract Surgery, Naso-Sinus Surgery Other HEENT Surgeries/Procedures: OU Cardiovascular Surgical History: Reports: Coronary Artery Stent Other Cardiovascular Surgeries/Procedures: x3 Respiratory Surgical History: Reports: None GI Surgical History: Reports: Appendectomy, Colonoscopy, EGD Male Surgical History: Reports: Other (See Below) Other Male Surgeries/Procedures: testicle removed Endocrine Surgical History: Reports: None Neurological Surgical History: Reports: None Musculoskeletal Surgical History: Reports: Hip Replacement Other Musculoskeletal Surgeries/Procedures:: bilateral hip replacements Oncologic Surgical History: Reports: Other (See Below) Social & Family History - Family History Family Medical History: No Pertinent Family History Oncologic: Reports: Leukemia Other Oncologic Family History: Brother - Tobacco Use Tobacco Use Status *Q: Current Status Unknown - Caffeine Use Caffeine Use: Reports: Soda Other Caffeine Use: 2/day Caffeine Use Comment: 1-2 sodas - Living Situation & Occupation Living situation: Reports: , with Spouse Occupation: Retired ED ROS GENERAL - Review of Systems Review Of Systems: See Below Constitutional: Reports: No Symptoms HEENT: Reports: No Symptoms Respiratory: Reports: Shortness of Breath, Cough Cardiovascular: Reports: No Symptoms Endocrine: Reports: No Symptoms GI/Abdominal: Reports: No Symptoms ED EXAM, GENERAL - Physical Exam Exam: See Below Exam Limited By: No Limitations General Appearance: Alert, Moderate Distress Ears: Normal External Exam Nose: Normal Inspection Head: Atraumatic, Normocephalic Neck: Normal Inspection Respiratory/Chest: Respiratory Distress (moderate), Decreased Breath Sounds, Rhonchi, Wheezing Cardiovascular: No Edema, No Murmur, Bradycardia GI/Abdominal: Soft, Non-Tender, No Organomegaly, No Mass Back Exam: Normal Inspection Extremities: Normal Inspection Neurological: Alert, Oriented, No Motor/Sensory Deficits #1 Interpretation EKG Date: 12/10/20 Time: 16:59 Rhythm: A-Fib Rate (Beats/Min): 125 Clifford: Normal P-Wave: Absent QRS: RBBB ST-T: Normal QT: Normal Course - Vital Signs Last Recorded V/S: Last Vital Signs Temp 98.4 F 12/10/20 17:00 Pulse 122 H 12/10/20 17:00 Resp 28 H 12/10/20 17:00 BP 123/91 H 12/10/20 17:00 Pulse Ox 76 L 12/10/20 17:00 - Orders/Labs/Meds Orders: Active Orders 24 hr Category Date Time Status Cardiac Monitoring [RC] . DIRECTED Care 12/10/20 16:54 Active Oxygen Therapy [RC] PRN Care 12/10/20 16:54 Active Peripheral IV Care [RC] . DIRECTED Care 12/10/20 16:54 Active RT Aerosol Therapy [RC] ASDIRECTED Care 12/10/20 16:54 Active RT BiPAP/CPAP [RC] ASDIRECTED Care 12/10/20 17:39 Active Chest 1V Frontal [CR] Stat Exams 12/10/20 16:54 Taken Sodium Chloride 0.9% [Saline Flush] Med 12/10/20 16:54 Active 10 ml FLUSH ASDIRECTED PRN Peripheral IV Insertion Adult [OM.PC] Stat Oth 12/10/20 16:54 Ordered Code Status [Resuscitation Status] Stat Resus Stat 12/10/20 19:19 Ordered Medication Orders Sodium Chloride (Sodium Chloride 0.9% 10 Ml Syringe) 10 ml FLUSH ASDIRECTED PRN PRN Reason: Keep Vein Open Last Admin: 12/10/20 16:59 Dose: 10 ml Documented by: CHRISTIANO Labs: Laboratory Tests 12/10/20 12/10/20 12/10/20 Range/Units 16:56 16:56 16:58 WBC 12.94 H (4.23-9.07) K/mm3 RBC 4.36 L (4.63-6.08) M/mm3 Hgb 14.6 (13.7-17.5) gm/dl Hct 45.6 (40.1-51.0) % MCV 104.6 H (79.0-92.2) fl MCH 33.5 H (25.7-32.2) pg MCHC 32.0 L (32.2-35.5) g/dl RDW Std Deviation 56.0 H (35.1-43.9) fL Plt Count 191 (163-337) K/mm3 MPV 9.5 (9.4-12.3) fl Neut % (Auto) 80.7 H (34.0-67.9) % Lymph % (Auto) 10.1 L (21.8-53.1) % [place] % (Auto) 6.5 (5.3-12.2) % Eos % (Auto) 2.2 (0.8-7.0) Baso % (Auto) 0.2 (0.1-1.2) % Neut # (Auto) 10.44 H (1.78-5.38) K/mm3 Lymph # (Auto) 1.31 L (1.32-3.57) K/mm3 [place] # (Auto) 0.84 H (0.30-0.82) K/mm3 Eos # (Auto) 0.29 (0.04-0.54) K/mm3 Baso # (Auto) 0.02 (0.01-0.08) K/mm3 Sodium 140 (136-145) mEq/L Potassium 4.4 (3.5-5.1) mEq/L Chloride 102 (98-107) mEq/L Carbon Dioxide 33 H (21-32) mEq/L Anion Gap 9.4 (5-15) BUN 11 (7-18) mg/dL Creatinine 1.4 H (0.7-1.3) mg/dL Est Cr Clr Drug Dosing TNP Estimated GFR (MDRD) 50 (>60) mL/min BUN/Creatinine Ratio 7.9 L (14-18) Glucose 128 H (70-99) mg/dL Calcium 8.5 (8.5-10.1) mg/dL Total Bilirubin 0.9 (0.2-1.0) mg/dL AST 22 (15-37) U/L ALT 22 (16-63) U/L Alkaline Phosphatase 133 H (46-116) U/L Troponin I < 0.017 (0.00-0.056) ng/mL Total Protein 7.4 (6.4-8.2) g/dl Albumin 3.4 (3.4-5.0) g/dl Globulin 4.0 gm/dL Albumin/Globulin Ratio 0.9 L (1-2) SARS-CoV-2 RNA (JOHN) Negative (NEGATIVE) Meds: Medications Generic Name Dose Route Start Last Admin Trade Name Noel PRN Reason Stop Dose Admin Sodium Chloride 10 ml 12/10/20 16:54 12/10/20 16:59 Sodium Chloride 0.9% 10 Ml Syringe FLUSH 10 ml ASDIRECTED PRN Administration Keep Vein Open Discontinued Medications Generic Name Dose Route Start Last Admin Trade Name Noel PRN Reason Stop Dose Admin Albuterol/Ipratropium 3 ml 12/10/20 16:54 12/10/20 18:06 Albuterol/Ipratropium 3.0-0.5 Mg/3 Ml Neb Soln NEB 12/10/20 16:55 3 ml ONETIME ONE Administration Albuterol/Ipratropium Confirm 12/10/20 16:56 12/10/20 17:00 Albuterol/Ipratropium 3.0-0.5 Mg/3 Ml Neb Soln Administered 12/10/20 16:57 Not Given Dose 3 ml .ROUTE .STK-MED ONE Hydromorphone HCl 0.5 mg 12/10/20 17:53 12/10/20 18:09 Hydromorphone 0.5 Mg/0.5 Ml Syringe IVPUSH 12/10/20 17:54 0.5 mg ONETIME ONE Administration Methylprednisolone Sodium Succinate 125 mg 12/10/20 17:49 12/10/20 17:53 Methylprednisolone Sodium Succinate 125 Mg/2 Ml Sdv IVPUSH 12/10/20 17:50 1 25 mg ONETIME ONE Administration Ondansetron HCl 4 mg 12/10/20 16:55 12/10/20 16:59 Ondansetron 4 Mg/2 Ml Sdv IVPUSH 12/10/20 16:56 4 mg ONETIME ONE Administration - Re-Assessments/Exams Free Text/Narrative Re-Assessment/Exam: 12/10/20 19:06 I ordered oxygen, BiPAP, IV saline lock, solu-medrol 125mg IV, duoneb and CXR. His EKG shows atrial fibrillation with a fast rate. His CXR does not show any infiltrated. His WBC was elevated at 12.94. His creatinine was elevated at 1.4. His glucose was 128. His alk phose was elevated at 133. His troponin was negative. He is COVID negative. 12/10/20 19:20 There was a time when I thought the patient may need to be intubated. I asked the patient and he said he does not want to be intubated or resuscitated if he were to stop breathing or his heart were to stop. He feels much better. I will get him on some prednisone for a week. Departure - Departure Time of Disposition: 19:25 Disposition: Home, Self-Care 01 Condition: Good Clinical Impression: COPD exacerbation - Discharge Information *PRESCRIPTION DRUG MONITORING PROGRAM REVIEWED*: Not Applicable *COPY OF PRESCRIPTION DRUG MONITORING REPORT IN PATIENT DANITZA: Not Applicable Prescriptions: predniSONE [Prednisone] 40 mg PO DAILY #14 tablet Referrals: Ana Benjamin MD [Primary Care Provider] - 1 Week Forms: ED Department Discharge Additional Instructions: Take your medications as prescribed. Take the prednisone daily for 7 days. 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 Please return if you are worse. Sepsis Event Note (ED) - Evaluation Sepsis Screening Result: Possible Sepsis Risk - Focused Exam Vital Signs: Vital Signs Temp Pulse Resp BP Pulse Ox Pulse Ox 12/10/20 17:00 98.4 F 122 H 28 H 123/91 H 76 L 12/10/20 16:54 92 L - My Orders Last 24 Hours: My Active Orders 12/10/20 16:54 Cardiac Monitoring [RC] . DIRECTED Oxygen Therapy [RC] PRN Peripheral IV Care [RC] . DIRECTED RT Aerosol Therapy [RC] ASDIRECTED Chest 1V Frontal [CR] Stat Sodium Chloride 0.9% [Saline Flush] 10 ml FLUSH ASDIRECTED PRN Peripheral IV Insertion Adult [OM.PC] Stat 12/10/20 17:39 RT BiPAP/CPAP [RC] ASDIRECTED 12/10/20 19:19 Code Status [Resuscitation Status] Stat - Assessment/Plan Last 24 Hours: My Active Orders 12/10/20 16:54 Cardiac Monitoring [RC] . DIRECTED Oxygen Therapy [RC] PRN Peripheral IV Care [RC] . DIRECTED RT Aerosol Therapy [RC] ASDIRECTED Chest 1V Frontal [CR] Stat Sodium Chloride 0.9% [Saline Flush] 10 ml FLUSH ASDIRECTED PRN Peripheral IV Insertion Adult [OM.PC] Stat 12/10/20 17:39 RT BiPAP/CPAP [RC] ASDIRECTED 12/10/20 19:19 Code Status [Resuscitation Status] Stat
--- NOTE | 2020-12-11 09:55 | CR ---
Chest: Portable view of the chest was obtained. Comparison: Prior chest x-ray of 11/19/19. Heart has an unusual configuration which is stable from prior exam. Lungs are clear with no acute parenchymal change. Bony structures appear grossly intact. Impression: 1. Stable chest x-ray from previous exam. 2. Nothing acute is seen. Diagnostic code #2
== END 2020-12-10 20:15 | disposition home or self-care (01) ==
LOC: JD.ED 16:52
DX: J44.1 Chronic obstructive pulmonary disease with (acute) exacerbation (principal); I48.91 Unspecified atrial fibrillation; I25.10 Atherosclerotic heart disease of native coronary artery without angina pectoris; I13.0 Hypertensive heart and chronic kidney disease with heart failure and stage 1 through stage 4 chronic kidney disease, or unspecified chronic kidney disease; N18.9 Chronic kidney disease, unspecified; I50.9 Heart failure, unspecified; E78.00 Pure hypercholesterolemia, unspecified; I25.2 Old myocardial infarction; K21.9 Gastro-esophageal reflux disease without esophagitis; N40.0 Benign prostatic hyperplasia without lower urinary tract symptoms; I45.10 Unspecified right bundle-branch block; E66.9 Obesity, unspecified; Z88.6 Allergy status to analgesic agent; Z88.8 Allergy status to other drugs, medicaments and biological substances; Z91.018 Allergy to other foods; Z88.5 Allergy status to narcotic agent; Z79.01 Long term (current) use of anticoagulants; Z79.899 Other long term (current) drug therapy; Z20.822 Contact with and (suspected) exposure to COVID-19
CPT/HCPCS: 36415; 71045; 80053; 84484; 85025; 87635; 93005; 94640; 96374; 96375; 99285; J1170; J2405; J2930; J7620-GY; U0002

== ENCOUNTER 2020-12-17 10:06 | Emergency (ER) | payer OTHER ==
[2020-12-17] MEDS ORDERED: methylPREDNISolone Sodium Succinate 125 MG/2 ML SDV IVPUSH ONE (10:58)
[2020-12-17] MEDS ORDERED: Sodium Chloride 0.9% 10 ML Syringe FLUSH PRN (10:58)
[2020-12-17] MEDS ORDERED: Furosemide 40 MG/4 ML VIAL IVPUSH ONE (11:45)
--- NOTE | 2020-12-17 11:46 | CR ---
Chest: Portable view of the chest was obtained. Comparison: Prior chest x-ray of 12/10/20 and 11/18/20. There appears to be increased density within the right chest from prior exams. Left chest is clear. Heart is enlarged with abnormal configuration which is stable. Bony structures shows nothing acute. Impression: 1. Findings suspicious for an area of consolidation within the right lung base from prior exam. Please correlate if patient has any symptoms of pneumonia. 2. Other portions of the chest are stable. Diagnostic code #3
--- NOTE | 2020-12-17 11:54 | EDM.PDOC ---
ED HPI GENERAL MEDICAL PROBLEM - General Chief Complaint: Respiratory Problem Stated Complaint: SOB Time Seen by Provider: 12/17/20 10:43 Source of Information: Reports: Patient History Limitations: Reports: No Limitations - History of Present Illness INITIAL COMMENTS - FREE TEXT/NARRATIVE: 70-year-old male with a history of COPD and congestive heart failure presents the emergency department with complaints of increased shortness of breath and cough productive of green/sinclair sputum. Patient was seen here in the emergency department on 12/10/2020 with similar symptoms. He was placed on BiPAP while in the emergency department and given IV Solu-Medrol and was eventually discharged home per his request as he did not want to be admitted to the hospital. He states that he has been taking prednisone as prescribed however it has not seemed to help at all he has also been on oxygen at 6 L per nasal cannula since the discharged home and had not been on continuous oxygen prior to that. He states he only wore oxygen at night when he slept. He states that prior to being seen in the emergency department on the sixth of this month, he was crawling under a crawl space at his home and pulling out rotted wood. He feels that this exacerbated everything. He states that for the past week he has had chills without fever. He has had generalized body aches. He has not had any nausea or vomiting however he has had diarrhea. He does have a history of smoking however he states he quit about 12 years ago. Prior to that he smoked half pack to 1 pack daily for 30+ years. 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 Generalized Pain Score (Numeric/FACES): 8 - Related Data Allergies Allergy/AdvReac Type Severity Reaction Status Date / Time acetaminophen [From Tylenol] Allergy Severe Airway Verified 12/17/20 10:29 Tightness aspirin Allergy Severe Airway Verified 12/17/20 10:29 Tightness horseradish Allergy Severe Airway Verified 12/17/20 10:29 Tightness ibuprofen Allergy Severe Airway Verified 12/17/20 10:29 Tightness meperidine HCl [From Demerol] Allergy Severe Airway Verified 12/17/20 10:29 Tightness oxycodone Allergy Intermediate Rash Verified 12/17/20 10:29 morphine Allergy Mild Itching Verified 12/17/20 10:29 sumatriptan [From Imitrex] Allergy Unknown Cannot Verified 12/17/20 10:29 Remember sumatriptan succinate Allergy Unknown Cannot Verified 12/17/20 10:29 [From Imitrex] Remember haloperidol [From Haldol] AdvReac Intermediate Change Verified 12/17/20 10:29 Mental Status haloperidol lactate AdvReac Intermediate Change Verified 12/17/20 10:29 [From Haldol] Mental Status hydromorphone [From Dilaudid] AdvReac Intermediate Change Verified 12/17/20 10:29 Mental Status ketorolac tromethamine AdvReac Intermediate Change Verified 12/17/20 10:29 [From Toradol] Mental Status antihistamines Allergy Severe Airway Uncoded 06/17/20 15:21 Tightness Home Meds: Home Meds Furosemide [Lasix] 40 mg PO DAILY 04/12/14 [History] PARoxetine HCl [Paxil] 20 mg PO DAILY 04/12/14 [History] Potassium Chloride 10 meq PO BID 04/12/14 [History] Tamsulosin HCl [Flomax] 0.4 mg PO DAILY 04/12/14 [History] Tiotropium [Spiriva HandiHaler] 1 cap INH DAILY 04/12/14 [History] Apixaban [Eliquis] 5 mg PO BID 01/23/16 [History] Ipratropium [place] 1 spray NASBOTH BID PRN 10/18/16 [History] Cholecalciferol (Vitamin D3) [Vitamin D] 1,000 unit PO BID 04/13/17 [History] Mirtazapine 30 mg PO BEDTIME 04/13/17 [History] Magnesium Oxide 420 mg PO BEDTIME 02/19/18 [History] Budesonide/Formoterol [Symbicort 160-4.5 MCG] 2 puff INH BID 04/18/19 [History] Verapamil HCl [Verapamil Sr] 120 mg PO DAILY 08/19/19 [History] guaiFENesin [Guaifenesin] 400 mg PO BID 08/20/19 [History] Levalbuterol Tartrate [Xopenex HFA] 1 puff INH Q6H #1 inhaler 08/22/19 [Rx] Cyanocobalamin (Vitamin B-12) [Vitamin B-12] 1 tab PO DAILY 12/10/19 [History] Famotidine 40 mg PO DAILY 12/10/19 [History] Finasteride 5 mg PO DAILY 12/10/19 [History] Lactobacillus Acidophilus [Acidophilus] 1 tab PO DAILY 12/10/19 [History] levalbuterol HCL [Xopenex] 1.25 mg NEB QID 12/10/19 [History] ClonazePAM [KlonoPIN] 0.5 mg PO BEDTIME #5 tablet 06/08/20 [Rx] Codeine/Promethazine [Phenergan with Codeine] 5 - 10 ml PO Q6HR PRN #300 ml 11/18/20 [Rx] Nitroglycerin 0.4 mg SL ASDIRECTED 11/18/20 [History] Simvastatin [Zocor] 10 mg PO BEDTIME 11/18/20 [History] predniSONE [Prednisone] 40 mg PO DAILY #10 tablet 11/18/20 [Rx] predniSONE [Prednisone] 40 mg PO DAILY #14 tablet 12/10/20 [Rx] Amoxicillin/Potassium Clav [Augmentin 875-125 Tablet] 1 each PO BID #10 tablet 12/17/20 [Rx] Azithromycin 250 mg PO DAILY #4 tablet 12/17/20 [Rx] Furosemide 40 mg PO BID #15 tablet 12/17/20 [Rx] predniSONE [Prednisone] 20 mg PO BID #35 tablet 12/17/20 [Rx] Past Medical History HEENT History: Reports: Impaired Vision, Other (See Below) Other HEENT History: upper/lower dentures Cardiovascular History: Reports: Afib, CAD, Heart Failure, High Cholesterol, Hypertension, VT, Other (See Below) Other Cardiovascular History: stents in 1999, 5 VT Respiratory History: Reports: COPD, Intubation, Previous, Sleep Apnea Gastrointestinal History: Reports: GERD, PUD Genitourinary History: Reports: BPH, Chronic Renal Insuffiency Musculoskeletal History: Reports: None Neurological History: Reports: Headaches, Chronic Other Neuro History: patient reports minimal CARDENAS, will continue to monitor. Psychiatric History: Reports: Depression, PTSD Endocrine/Metabolic History: Reports: Obesity/BMI 30+, Other (See Below) Other Endocrine/Metabolic History: boardline diabetic- checks AM BS daily Hematologic History: Reports: Anticoagulation Therapy, B12 Deficiency - Infectious Disease History Infectious Disease History: Reports: Chicken Pox, Measles, Mumps - Past Surgical History Head Surgeries/Procedures: Reports: None HEENT Surgical History: Reports: Cataract Surgery, Naso-Sinus Surgery Other HEENT Surgeries/Procedures: OU Cardiovascular Surgical History: Reports: Coronary Artery Stent Other Cardiovascular Surgeries/Procedures: x3 Respiratory Surgical History: Reports: None GI Surgical History: Reports: Appendectomy, Colonoscopy, EGD Male Surgical History: Reports: Other (See Below) Other Male Surgeries/Procedures: testicle removed Endocrine Surgical History: Reports: None Neurological Surgical History: Reports: None Musculoskeletal Surgical History: Reports: Hip Replacement Other Musculoskeletal Surgeries/Procedures:: bilateral hip replacements Oncologic Surgical History: Reports: Other (See Below) Social & Family History - Family History Family Medical History: No Pertinent Family History Oncologic: Reports: Leukemia Other Oncologic Family History: Brother - Tobacco Use Tobacco Use Status *Q: Former Tobacco User Used Tobacco, but Quit: Yes Month/Year Tobacco Last Used: 2019 - Caffeine Use Caffeine Use: Reports: Soda Other Caffeine Use: 2/day Caffeine Use Comment: 1-2 sodas - Living Situation & Occupation Living situation: Reports: , with Spouse Occupation: Retired ED ROS GENERAL - Review of Systems Review Of Systems: Comprehensive ROS is negative, except as noted in HPI. ED EXAM, GENERAL - Physical Exam Exam: See Below Exam Limited By: No Limitations General Appearance: Alert, WD/WN, Moderate Distress (O2 saturations 89% on BiPAP) Ears: Normal External Exam, Hearing Grossly Normal Nose: Normal Inspection Throat/Mouth: Normal Inspection, Normal Lips, Normal Voice, No Airway Compromise Head: Atraumatic Neck: Normal Inspection, Supple Respiratory/Chest: Normal Breath Sounds (On the left lung), Chest Non-Tender, Respiratory Distress, Decreased Breath Sounds (On the right lung). No: No Respiratory Distress, No Accessory Muscle Use Cardiovascular: Normal Peripheral Pulses, Regular Rate, Rhythm, No Murmur. No: No Edema (1+ pitting bilateral lower extremities) Peripheral Pulses: 2+: Radial (L), Radial (R) GI/Abdominal: Normal Bowel Sounds, Soft, Non-Tender, No Distention (Male) Exam: Deferred Rectal (Males) Exam: Deferred Back Exam: Normal Inspection Extremities: Normal Inspection, Normal Range of Motion, Non-Tender, Pedal Edema (1+ pitting to bilateral lower extremities) Neurological: Alert, Oriented, Normal Cognition Psychiatric: Normal Affect, Normal Mood Skin Exam: Warm, Dry, Intact, Normal Color, No Rash Lymphatic: No Adenopathy Course - Vital Signs Text/Narrative:: As stated above, patient presents with worsening shortness of breath and cough productive of green/sinclair sputum. He states that since being seen in the emergency department on 12/10/2020 and discharged home on prednisone he has not gotten any better. He has now been wearing oxygen at 6 L per nasal cannula continuously. At the time of my exam, the patient was laying on his right side in bed wearing his on CPAP machine. O2 saturations are 88 to 89%. He states he has generalized body aches. Lung sounds are diminished on the right side however he has good air exchange on the left. He is dyspneic at rest while wearing his CPAP. I have ordered for the patient to receive 125 mg of Solu- Medrol IV. Ordered lab studies to include a CBC, CMP, magnesium level, C- reactive protein, proBNP, and a troponin level. Will obtain a portable chest x- ray. Last Recorded V/S: Last Vital Signs Temp 97.8 F 12/17/20 10:25 Pulse 85 12/17/20 10:25 Resp 26 H 12/17/20 10:25 BP 110/75 12/17/20 10:25 Pulse Ox 89 L 12/17/20 10:25 - Orders/Labs/Meds Orders: Active Orders 24 hr Category Date Time Status Sodium Chloride 0.9% [Saline Flush] Med 12/17/20 10:58 Active 10 ml FLUSH ASDIRECTED PRN Saline Lock Insert [OM.PC] Stat Oth 12/17/20 10:58 Ordered Medication Orders Sodium Chloride (Sodium Chloride 0.9% 10 Ml Syringe) 10 ml FLUSH ASDIRECTED PRN PRN Reason: Keep Vein Open Last Admin: 12/17/20 11:47 Dose: 10 ml Documented by: MIKEY Labs: Laboratory Tests 12/17/20 12/17/20 12/17/20 Range/Units 10:20 10:20 10:20 WBC 14.84 H (4.23-9.07) K/mm3 RBC 4.18 L (4.63-6.08) M/mm3 Hgb 13.8 (13.7-17.5) gm/dl Hct 43.7 (40.1-51.0) % MCV 104.5 H (79.0-92.2) fl MCH 33.0 H (25.7-32.2) pg MCHC 31.6 L (32.2-35.5) g/dl RDW Std Deviation 54.7 H (35.1-43.9) fL Plt Count 239 (163-337) K/mm3 MPV 9.6 (9.4-12.3) fl Neut % (Auto) 83.0 H (34.0-67.9) % Lymph % (Auto) 4.6 L (21.8-53.1) % [place] % (Auto) 4.2 L (5.3-12.2) % Eos % (Auto) 0.5 L (0.8-7.0) Baso % (Auto) 0.5 (0.1-1.2) % Neut # (Auto) 12.32 H (1.78-5.38) K/mm3 Lymph # (Auto) 0.69 L (1.32-3.57) K/mm3 [place] # (Auto) 0.62 (0.30-0.82) K/mm3 Eos # (Auto) 0.07 (0.04-0.54) K/mm3 Baso # (Auto) 0.07 (0.01-0.08) K/mm3 Manual Slide Review Abnormal smear Puncture Site ABG pH (7.35-7.45) ABG pCO2 (35.0-45.0) mmHg ABG pO2 (80.0-100.0) mmHg ABG HCO3 (22.0-26.0) meq/L ABG O2 Saturation (96.0-97.0) % ABG Base Excess (-2-2.0) Oskar Test O2 Delivery Device Sodium 138 (136-145) mEq/L Potassium 3.9 (3.5-5.1) mEq/L Chloride 101 (98-107) mEq/L Carbon Dioxide 32 (21-32) mEq/L Anion Gap 8.9 (5-15) BUN 26 H (7-18) mg/dL Creatinine 1.4 H (0.7-1.3) mg/dL Est Cr Clr Drug Dosing 44.59 mL/min Estimated GFR (MDRD) 50 (>60) mL/min BUN/Creatinine Ratio 18.6 H (14-18) Glucose 280 H (70-99) mg/dL Calcium 8.9 (8.5-10.1) mg/dL Magnesium 1.9 (1.8-2.4) mg/dL Total Bilirubin 0.5 (0.2-1.0) mg/dL AST 12 L (15-37) U/L ALT 35 (16-63) U/L Alkaline Phosphatase 139 H (46-116) U/L Troponin I < 0.017 (0.00-0.056) ng/mL C-Reactive Protein 17.3 H* (<1.0) mg/dL NT-Pro-B Natriuret Pep 2249 H (0-125) pg/mL Total Protein 6.4 (6.4-8.2) g/dl Albumin 2.5 L (3.4-5.0) g/dl Globulin 3.9 gm/dL Albumin/Globulin Ratio 0.6 L (1-2) Urine Color (Yellow) Urine Appearance (Clear) Urine pH (5.0-8.0) Ur Specific [place] (1.005-1.030) Urine Protein (Negative) Urine Glucose (UA) (Negative) Urine Ketones (Negative) Urine Occult Blood (Negative) Urine Nitrite (Negative) Urine Bilirubin (Negative) Urine Urobilinogen (0.2-1.0) Ur Leukocyte Esterase (Negative) SARS-CoV-2 RNA (JOHN) (NEGATIVE) 12/17/20 12/17/20 12/17/20 Range/Units 10:58 12:05 12:32 WBC (4.23-9.07) K/mm3 RBC (4.63-6.08) M/mm3 Hgb (13.7-17.5) gm/dl Hct (40.1-51.0) % MCV (79.0-92.2) fl MCH (25.7-32.2) pg MCHC (32.2-35.5) g/dl RDW Std Deviation (35.1-43.9) fL Plt Count (163-337) K/mm3 MPV (9.4-12.3) fl Neut % (Auto) (34.0-67.9) % Lymph % (Auto) (21.8-53.1) % [place] % (Auto) (5.3-12.2) % Eos % (Auto) (0.8-7.0) Baso % (Auto) (0.1-1.2) % Neut # (Auto) (1.78-5.38) K/mm3 Lymph # (Auto) (1.32-3.57) K/mm3 [place] # (Auto) (0.30-0.82) K/mm3 Eos # (Auto) (0.04-0.54) K/mm3 Baso # (Auto) (0.01-0.08) K/mm3 Manual Slide Review Puncture Site Rt radial ABG pH 7.42 (7.35-7.45) ABG pCO2 47.1 H (35.0-45.0) mmHg ABG pO2 65.0 L (80.0-100.0) mmHg ABG HCO3 29.6 H (22.0-26.0) meq/L ABG O2 Saturation 91.6 L (96.0-97.0) % ABG Base Excess 4.7 H (-2-2.0) Oskar Test Positive O2 Delivery Device Cpap Sodium (136-145) mEq/L Potassium (3.5-5.1) mEq/L Chloride (98-107) mEq/L Carbon Dioxide (21-32) mEq/L Anion Gap (5-15) BUN (7-18) mg/dL Creatinine (0.7-1.3) mg/dL Est Cr Clr Drug Dosing mL/min Estimated GFR (MDRD) (>60) mL/min BUN/Creatinine Ratio (14-18) Glucose (70-99) mg/dL Calcium (8.5-10.1) mg/dL Magnesium (1.8-2.4) mg/dL Total Bilirubin (0.2-1.0) mg/dL AST (15-37) U/L ALT (16-63) U/L Alkaline Phosphatase (46-116) U/L Troponin I (0.00-0.056) ng/mL C-Reactive Protein (<1.0) mg/dL NT-Pro-B Natriuret Pep (0-125) pg/mL Total Protein (6.4-8.2) g/dl Albumin (3.4-5.0) g/dl Globulin gm/dL Albumin/Globulin Ratio (1-2) Urine Color Yellow (Yellow) Urine Appearance Clear (Clear) Urine pH 6.0 (5.0-8.0) Ur Specific [place] 1.020 (1.005-1.030) Urine Protein Negative (Negative) Urine Glucose (UA) Negative (Negative) Urine Ketones Negative (Negative) Urine Occult Blood Negative (Negative) Urine Nitrite Negative (Negative) Urine Bilirubin Negative (Negative) Urine Urobilinogen 0.2 (0.2-1.0) Ur Leukocyte Esterase Negative (Negative) SARS-CoV-2 RNA (JOHN) Negative (NEGATIVE) Meds: Medications Generic Name Dose Route Start Last Admin Trade Name Freq PRN Reason Stop Dose Admin Sodium Chloride 10 ml 12/17/20 10:58 12/17/20 11:47 Sodium Chloride 0.9% 10 Ml Syringe FLUSH 10 ml ASDIRECTED PRN Administration Keep Vein Open Discontinued Medications Generic Name Dose Route Start Last Admin Trade Name Freq PRN Reason Stop Dose Admin Furosemide 40 mg 12/17/20 11:45 12/17/20 11:48 Furosemide 40 Mg/4 Ml Vial IVPUSH 12/17/20 11:46 40 mg NOW ONE Administration Azithromycin 500 mg/ Sodium 250 mls @ 250 mls/hr 12/17/20 11:58 12/17/20 12:57 Chloride IV 12/17/20 12:57 250 mls/hr ONETIME ONE Administration Ceftriaxone Sodium 1 gm/ 100 mls @ 200 mls/hr 12/17/20 11:58 12/17/20 12:20 Sodium Chloride IV 12/17/20 12:27 200 mls/hr ONETIME ONE Administration Methylprednisolone Sodium Succinate 125 mg 12/17/20 10:58 12/17/20 11:10 Methylprednisolone Sodium Succinate 125 Mg/2 Ml Sdv IVPUSH 12/17/20 10:59 125 mg ONETIME ONE Administration - Re-Assessments/Exams Free Text/Narrative Re-Assessment/Exam: 12/17/20 11:49 Hematology reveals a WBC of 14.84, hemoglobin 13.8, hematocrit 43.7, platelet count 239 ABGs reveal pH 7.42, PCO2 47.1, PO2 65.0, bicarb 29.6, O2 saturation 91.6, patient was on CPAP at the time of the lab draw Chemistry reveals a sodium of 138, potassium 3.9, carbon dioxide 32, anion gap 8.9, BUN 26, creatinine 1.4, glucose 280, magnesium 1.9, AST 12, ALT 35, alk phos 139, troponin less than 0.017, C-reactive protein 17.3, proBNP 2249 12/17/20 11:54 Radiologist impression portable view of the chest: 1. Findings suspicious for an area of consolidation within the right lung base from prior exam. Please correlate if patient has any symptoms of pneumonia. 2. Other portions of the chest are stable. I have ordered for the patient to receive 40 mg of IV Lasix. I will also order for him to receive Rocephin 1 g IV as well as Zithromax 500 mg IV. 12/17/20 12:47 I feel that this patient does need to be admitted to the hospital for pneumonia and exacerbation of CHF however there are no beds available at this hospital and both [facility] in [place] as well as [facility] in [place] are on diversion. I discussed this with the patient and he is refusing to be transferred to another hospital at this time. He states he is feeling better since receiving the IV Lasix he has voided approximately a liter of urine. His O2 saturations are up to 93% on his BiPAP. He states that he feels comfortable with going home as he states he has 3 different types of oxygen at home to care for himself. Patient will likely be discharged to home once he has completed his IV antibiotics. 12/17/20 13:05 Urinalysis is unremarkable. 12/17/20 14:10 Patient's antibiotic infusion has completed. He states he is feeling better and his breathing is less labored. As stated above, the patient is refusing to be admitted to the hospital and would rather be discharged home. He will be discharged on his current 6 L of oxygen per nasal cannula with BiPAP as needed. We will send him home on Augmentin 875 twice daily for 5 days as well as Zithromax 250 daily for the next 4 days. We will also have him take Lasix 40 mg twice daily for the next 3 days and then decrease to 40 mg in the a.m. and 20 mg in the p.m. This was per the recommendation of Dr. Rogers. He will need to have his potassium level checked later this week at the clinic and follow-up with his primary care provider. Departure - Departure Time of Disposition: 14:14 Disposition: Home, Self-Care 01 Condition: Fair Clinical Impression: COPD exacerbation Pneumonia Qualifiers: Pneumonia type: due to unspecified organism Laterality: right Lung location: lower lobe of lung Qualified Code(s): J18.9 - Pneumonia, unspecified organism CHF (congestive heart failure) Qualifiers: Heart failure type: unspecified Heart failure chronicity: acute Qualified Code(s): I50.9 - Heart failure, unspecified - Discharge Information Prescriptions: Amoxicillin/Potassium Clav [Augmentin 875-125 Tablet] 1 each PO BID #10 tablet Azithromycin 250 mg PO DAILY #4 tablet Furosemide 40 mg PO BID #15 tablet predniSONE [Prednisone] 20 mg PO BID #35 tablet Instructions: Chronic Obstructive Pulmonary Disease Exacerbation, [id number], Heart Failure Exacerbation, Community-Acquired Pneumonia, Adult, [id number] Referrals: Ana Benjamin MD [Primary Care Provider] - Forms: ED Department Discharge Additional Instructions: You were seen in the emergency department today with increased shortness of breath, decreased oxygen levels as well as increased swelling in your ankles. Labs were completed which did show your white blood cell count was elevated however this could be due to the prednisone you are taking as steroids do increase your white blood cell count. However your C-reactive protein, which is an inflammatory marker, was also elevated which does indicate infection. Your chest x-ray did confirm that you do have pneumonia noted in your right lung. You also have increased swelling noted to your bilateral feet and ankles and your proBNP level was elevated at 2200. On last emergency department visit it was 500. While you are in the emergency department you received IV steroid called Solu-Medrol. You also received IV Lasix which did seem to help you diurese. You were also given 2 different antibiotics via IV while in the emergency department. I have sent a prescription for an antibiotic called Augmentin to your pharmacy. Starting tomorrow you need to take this twice daily until gone. I have sent a second antibiotic prescription to your pharmacy called azithromycin. Starting tomorrow you need to take 1 tab until gone. I have also sent a prescription to your pharmacy for prednisone. You will need to take 1 tab twice daily for 10 days then 1 tab daily for 10 days then 1 tab every other day until gone. I am going to also increase your diuretic, Lasix, to 40 mg twice daily for the next 3 days and then decrease to 40 mg in the morning and 20 mg in the evening. You will need to follow-up later this week at the [facility] to have your potassium levels checked as increasing the diuretic can cause it to decrease your potassium levels. Continue on your oxygen at 6 L per nasal cannula as you were previously using before coming to the emergency department. Should your condition worsen or change, do not hesitate returning to the emergency department. Sepsis Event Note (ED) - Evaluation Sepsis Screening Result: No Definite Risk - Focused Exam Vital Signs: Vital Signs Temp Pulse Resp BP Pulse Ox 12/17/20 10:25 97.8 F 85 26 H 110/75 89 L - My Orders Last 24 Hours: My Active Orders 12/17/20 10:58 Sodium Chloride 0.9% [Saline Flush] 10 ml FLUSH ASDIRECTED PRN Saline Lock Insert [OM.PC] Stat - Assessment/Plan Last 24 Hours: My Active Orders 12/17/20 10:58 Sodium Chloride 0.9% [Saline Flush] 10 ml FLUSH ASDIRECTED PRN Saline Lock Insert [OM.PC] Stat
[2020-12-17] MEDS ORDERED: Azithromycin 500 MG in Sodium Chloride 0.9% 250 ML IV ONE (11:58)
[2020-12-17] MEDS ORDERED: cefTRIAXone 1 GM in Sodium Chloride 0.9% 100 ML IV ONE (11:58)
[2020-12-17] MEDS ORDERED: Albuterol 0.083% 2.5 MG/3 ML Neb Soln NEB ONE (15:01)
[2020-12-17 17:29] VITALS: BP 124/94; PULSE 66
== END 2020-12-17 15:00 | disposition home or self-care (01) ==
LOC: JD.ED 10:06
DX: J44.1 Chronic obstructive pulmonary disease with (acute) exacerbation (principal); J18.9 Pneumonia, unspecified organism; I13.0 Hypertensive heart and chronic kidney disease with heart failure and stage 1 through stage 4 chronic kidney disease, or unspecified chronic kidney disease; I50.9 Heart failure, unspecified; N18.9 Chronic kidney disease, unspecified; I48.91 Unspecified atrial fibrillation; Z20.822 Contact with and (suspected) exposure to COVID-19; Z88.8 Allergy status to other drugs, medicaments and biological substances; Z88.5 Allergy status to narcotic agent; Z88.4 Allergy status to anesthetic agent; I25.2 Old myocardial infarction; E78.00 Pure hypercholesterolemia, unspecified; K21.9 Gastro-esophageal reflux disease without esophagitis; E66.9 Obesity, unspecified; Z87.891 Personal history of nicotine dependence; Z68.28 Body mass index [BMI] 28.0-28.9, adult
CPT/HCPCS: 36415; 36600; 71045; 80053; 81003; 82803; 83735; 83880; 84484; 85025; 86140; 87635; 94640; 96365; 96367; 96375; 99285; J0456; J0696; J1940; J2930; J7050; 99284; U0002

== ENCOUNTER 2021-01-10 16:01 | Emergency (ER) | payer OTHER ==
[2021-01-10 16:14] VITALS: BP 117/87; PULSE 96
--- NOTE | 2021-01-10 16:33 | EDM.PDOC ---
ED HPI GENERAL MEDICAL PROBLEM - General Chief Complaint: Abdominal Pain Stated Complaint: SOB Time Seen by Provider: 01/10/21 16:13 Source of Information: Reports: Patient, RN Notes Reviewed History Limitations: Reports: No Limitations - History of Present Illness INITIAL COMMENTS - FREE TEXT/NARRATIVE: Patient is a 70-year-old male who presents to the ER for the evaluation of his abdominal discomfort and possible constipation. Patient states he has not had a good bowel movement in at least 2 or 3 weeks. States he is just getting little bits out when he goes to the bathroom. He feels like his abdomen is generally distended, and the pressure is pushing up on his lungs causing him to feel short of breath. He has tried taking some Gas-X and this has not provided much relief. It does not sound like he is taking any sort of stool softeners or otherwise. Patient is denying any fevers or chills, cough, shortness of breath or any sort of nausea/vomiting/diarrhea. Primary care provider is Dr. Benjamin at the [facility]. Lower Abdomen Pain Score (Numeric/FACES): 9 - Related Data Allergies Allergy/AdvReac Type Severity Reaction Status Date / Time acetaminophen [From Tylenol] Allergy Severe Airway Verified 01/10/21 16:14 Tightness aspirin Allergy Severe Airway Verified 01/10/21 16:14 Tightness horseradish Allergy Severe Airway Verified 01/10/21 16:14 Tightness ibuprofen Allergy Severe Airway Verified 01/10/21 16:14 Tightness meperidine HCl [From Demerol] Allergy Severe Airway Verified 01/10/21 16:14 Tightness morphine Allergy Severe Itching Verified 01/10/21 16:14 oxycodone Allergy Severe Rash Verified 01/10/21 16:14 sumatriptan [From Imitrex] Allergy Severe Cannot Verified 01/10/21 16:14 Remember sumatriptan succinate Allergy Severe Cannot Verified 01/10/21 16:14 [From Imitrex] Remember haloperidol [From Haldol] AdvReac Severe Change Verified 01/10/21 16:14 Mental Status haloperidol lactate AdvReac Severe Change Verified 01/10/21 16:14 [From Haldol] Mental Status hydromorphone [From Dilaudid] AdvReac Severe Cardiac Verified 01/10/21 16:14 Arrest ketorolac tromethamine AdvReac Severe Change Verified 01/10/21 16:14 [From Toradol] Mental Status antihistamines Allergy Severe Airway Uncoded 01/10/21 16:14 Tightness Home Meds: Home Meds Furosemide [Lasix] 40 mg PO DAILY 04/12/14 [History] PARoxetine HCl [Paxil] 20 mg PO DAILY 04/12/14 [History] Potassium Chloride 10 meq PO BID 04/12/14 [History] Tamsulosin HCl [Flomax] 0.4 mg PO DAILY 04/12/14 [History] Tiotropium [Spiriva HandiHaler] 1 cap INH DAILY 04/12/14 [History] Apixaban [Eliquis] 5 mg PO BID 01/23/16 [History] Ipratropium [place] 1 spray NASBOTH BID PRN 10/18/16 [History] Cholecalciferol (Vitamin D3) [Vitamin D] 1,000 unit PO BID 04/13/17 [History] Mirtazapine 30 mg PO BEDTIME 04/13/17 [History] Magnesium Oxide 420 mg PO BEDTIME 02/19/18 [History] Budesonide/Formoterol [Symbicort 160-4.5 MCG] 2 puff INH BID 04/18/19 [History] Verapamil HCl [Verapamil Sr] 120 mg PO DAILY 08/19/19 [History] guaiFENesin [Guaifenesin] 400 mg PO BID 08/20/19 [History] Levalbuterol Tartrate [Xopenex HFA] 1 puff INH Q6H #1 inhaler 08/22/19 [Rx] Cyanocobalamin (Vitamin B-12) [Vitamin B-12] 1 tab PO DAILY 12/10/19 [History] Famotidine 40 mg PO DAILY 12/10/19 [History] Finasteride 5 mg PO DAILY 12/10/19 [History] Lactobacillus Acidophilus [Acidophilus] 1 tab PO DAILY 12/10/19 [History] levalbuterol HCL [Xopenex] 1.25 mg NEB QID 12/10/19 [History] ClonazePAM [KlonoPIN] 0.5 mg PO BEDTIME #5 tablet 06/08/20 [Rx] Codeine/Promethazine [Phenergan with Codeine] 5 - 10 ml PO Q6HR PRN #300 ml 11/18/20 [Rx] Nitroglycerin 0.4 mg SL ASDIRECTED 11/18/20 [History] Simvastatin [Zocor] 10 mg PO BEDTIME 11/18/20 [History] predniSONE [Prednisone] 40 mg PO DAILY #10 tablet 11/18/20 [Rx] predniSONE [Prednisone] 40 mg PO DAILY #14 tablet 12/10/20 [Rx] Amoxicillin/Potassium Clav [Augmentin 875-125 Tablet] 1 each PO BID #10 tablet 12/17/20 [Rx] Azithromycin 250 mg PO DAILY #4 tablet 12/17/20 [Rx] Furosemide 40 mg PO BID #15 tablet 12/17/20 [Rx] predniSONE [Prednisone] 20 mg PO BID #35 tablet 12/17/20 [Rx] Past Medical History HEENT History: Reports: Impaired Vision, Other (See Below) Other HEENT History: upper/lower dentures Cardiovascular History: Reports: Afib, CAD, Heart Failure, High Cholesterol, Hypertension, [place], Other (See Below) Other Cardiovascular History: stents in 1999, 5 [place] Respiratory History: Reports: COPD, Intubation, Previous, Sleep Apnea Gastrointestinal History: Reports: Chronic Constipation, GERD, PUD Genitourinary History: Reports: BPH, Chronic Renal Insuffiency Musculoskeletal History: Reports: None Neurological History: Reports: Headaches, Chronic Other Neuro History: patient reports minimal CARDENAS, will continue to monitor. Psychiatric History: Reports: Depression, PTSD Endocrine/Metabolic History: Reports: Diabetes, Type II, Obesity/BMI 30+, Other (See Below) Other Endocrine/Metabolic History: boardline diabetic- checks AM BS daily Hematologic History: Reports: Anticoagulation Therapy, B12 Deficiency - Infectious Disease History Infectious Disease History: Reports: Chicken Pox, Measles, Mumps - Past Surgical History HEENT Surgical History: Reports: Cataract Surgery, Naso-Sinus Surgery Other HEENT Surgeries/Procedures: OU Cardiovascular Surgical History: Reports: Coronary Artery Stent Other Cardiovascular Surgeries/Procedures: x3 GI Surgical History: Reports: Appendectomy, Colonoscopy, EGD Male Surgical History: Reports: Other (See Below) Other Male Surgeries/Procedures: testicle removed Musculoskeletal Surgical History: Reports: Hip Replacement Other Musculoskeletal Surgeries/Procedures:: bilateral hip replacements Oncologic Surgical History: Reports: Other (See Below) Social & Family History - Family History Family Medical History: No Pertinent Family History Oncologic: Reports: Leukemia Other Oncologic Family History: Brother - Tobacco Use Tobacco Use Status *Q: Never Tobacco User - Caffeine Use Caffeine Use: Reports: Soda Other Caffeine Use: 2/day Caffeine Use Comment: 1-2 sodas - Recreational Drug Use Recreational Drug Use: No - Living Situation & Occupation Living situation: Reports: , with Spouse Occupation: Retired ED ROS GENERAL - Review of Systems Review Of Systems: Comprehensive ROS is negative, except as noted in HPI. ED EXAM, GI/ABD - Physical Exam Exam: See Below Exam Limited By: No Limitations General Appearance: Alert, WD/WN, No Apparent Distress Respiratory/Chest: No Respiratory Distress, Lungs Clear, Normal Breath Sounds, No Accessory Muscle Use, Chest Non-Tender Cardiovascular: Normal Peripheral Pulses, Regular Rate, Rhythm, No Edema GI/Abdominal Exam: Soft, Distended (slight generalized), Tender (generalized), Abnormal Bowel Sounds (hypoactive tones x 4 quadrants) Extremities: Normal Inspection, Normal Capillary Refill Neurological: Alert, Oriented, Normal Cognition, No Motor/Sensory Deficits Psychiatric: Normal Affect, Normal Mood Skin Exam: Warm, Dry, Intact, Normal Color, No Rash #1 Interpretation EKG Date: 01/10/21 Time: 16:10 Rhythm: A-Fib Rate (Beats/Min): 94 [place]: Normal P-Wave: Present QRS: Normal ST-T: Normal QT: Prolonged (borderline prolonged) Comparison: No Change EKG Interpretation Comments: No obvious ischemia or acute ST changes noted, reviewed by myself and Dr. Cochran. Course - Vital Signs Last Recorded V/S: Last Vital Signs Temp 97.1 F 01/10/21 16:11 Pulse 96 01/10/21 16:11 Resp 28 H 01/10/21 16:11 BP 117/87 01/10/21 16:11 Pulse Ox 90 L 01/10/21 16:11 - Orders/Labs/Meds Orders: Active Orders 24 hr Category Date Time Status Enema [RC] ASDIRECTED Care 01/10/21 16:39 Ordered bisacodyL [Dulcolax] Med 01/10/21 18:58 Once 10 mg RECTAL ONETIME ONE Meds: Medications Discontinued Medications Generic Name Dose Route Start Last Admin Trade Name Freq PRN Reason Stop Dose Admin Dicyclomine HCl 20 mg 01/10/21 16:40 01/10/21 17:01 Dicyclomine 10 Mg Cap PO 10/07/21 16:41 20 mg ONETIME ONE Administration Ketorolac Tromethamine 30 mg 01/10/21 18:35 Ketorolac 30 Mg/Ml Sdv IM 01/10/21 18:36 ONETIME ONE Magnesium Citrate 296 ml 01/10/21 16:39 01/10/21 16:42 Magnesium Citrate Solution 296 Ml Bottle PO 01/10/21 16:40 296 ml ONETIME ONE Administration - Re-Assessments/Exams Free Text/Narrative Re-Assessment/Exam: 01/10/21 16:33 Patient presents to the ER for his constipation and abdomen discomfort. For today's purposes we will go ahead get a flat and abdomen x-ray for evaluation. And then we will come up with a plan on how to try to help the gentleman have a bowel movement. 01/10/21 16:40 Patient's x-rays demonstrates quite a bit of stool throughout the entire colon but no obvious dilated loops of small bowel. We will go ahead and give him a bottle of magnesium citrate, and soapsuds enema, we will treat him with dicyclomine for pain management as the patient has historically not tolerated opioid medications here well as he does go into respiratory failure. Departure - Departure Time of Disposition: 18:59 Disposition: Home, Self-Care 01 Condition: Fair Clinical Impression: Constipation Qualifiers: Constipation type: other constipation type Qualified Code(s): K59.09 - Other constipation - Discharge Information *PRESCRIPTION DRUG MONITORING PROGRAM REVIEWED*: No *COPY OF PRESCRIPTION DRUG MONITORING REPORT IN PATIENT DANITZA: No Instructions: Constipation, Adult, [id number] Referrals: Ana Benjamin MD [Primary Care Provider] - Forms: ED Department Discharge Additional Instructions: You have been evaluated in the ED for constipation. You had abdomen x-rays, and these did demonstrate that you are constipated. You have been given a bottle of magnesium citrate, please drink one half bottle, if you do not have a rather large bowel movement in the next few hours, continue with the last half bottle. Please note that you will have some mild abdomen cramping while using this medication, and you may have some looser stools towards the end of use of this medication. Although an enema was attempted a few times to help relieve her constipation, this was not tolerated well by you. We did give you a Dulcolax suppository to help soften the stools hopefully to help provide you a bowel movement. It was noted that you have pretty large hemorrhoids, and I would recommend that you obtain some Preparation H, or hemorrhoid suppositories as well to see if you can shrink these tissues as this can help decrease the amount of pain you have when having a bowel movement. Over the next 24-48 hours please try to limit diet to clear liquids and advance as tolerate to a bland diet to alleviate symptoms of nausea/vomiting. Please return to the ED if your symptoms should change or worsen. Sepsis Event Note (ED) - Evaluation Sepsis Screening Result: No Definite Risk - Focused Exam Vital Signs: Vital Signs Temp Pulse Resp BP Pulse Ox 01/10/21 16:11 97.1 F 96 28 H 117/87 90 L - My Orders Last 24 Hours: My Active Orders 01/10/21 16:39 Enema [RC] ASDIRECTED 01/10/21 18:58 bisacodyL [Dulcolax] 10 mg RECTAL ONETIME ONE - Assessment/Plan Last 24 Hours: My Active Orders 01/10/21 16:39 Enema [RC] ASDIRECTED 01/10/21 18:58 bisacodyL [Dulcolax] 10 mg RECTAL ONETIME ONE
[2021-01-10] MEDS ORDERED: Magnesium Citrate Solution 296 ML Bottle PO ONE (16:39)
[2021-01-10] MEDS ORDERED: Dicyclomine 10 MG Cap PO ONE (16:40)
--- NOTE | 2021-01-10 17:11 | CR ---
Abdomen: Supine and upright views the abdomen were obtained. Comparison: Prior abdominal x-ray of 09/07/17. Heart is enlarged and is stable from prior study. Bowel gas pattern is felt to be within normal limits. Stable calcifications are seen with the left pelvis. Bilateral hip prostheses are noted. No free air is seen. Bony structures show nothing acute. Impression: 1. Stable findings as noted above. 2. Nothing acute is seen on 2 view abdominal x-ray. Diagnostic code #2
[2021-01-10] MEDS ORDERED: Ketorolac 30 MG/ML SDV IM ONE (18:35)
[2021-01-10] MEDS ORDERED: Bisacodyl 10 MG Supp RECTAL ONE (18:58)
== END 2021-01-10 19:30 | disposition home or self-care (01) ==
LOC: JD.ED 16:01
DX: K59.09 Other constipation (principal); I48.91 Unspecified atrial fibrillation; I25.10 Atherosclerotic heart disease of native coronary artery without angina pectoris; I13.0 Hypertensive heart and chronic kidney disease with heart failure and stage 1 through stage 4 chronic kidney disease, or unspecified chronic kidney disease; E11.22 Type 2 diabetes mellitus with diabetic chronic kidney disease; N18.9 Chronic kidney disease, unspecified; I50.9 Heart failure, unspecified; E78.00 Pure hypercholesterolemia, unspecified; I25.2 Old myocardial infarction; J44.9 Chronic obstructive pulmonary disease, unspecified; K21.9 Gastro-esophageal reflux disease without esophagitis; E66.9 Obesity, unspecified; Z68.29 Body mass index [BMI] 29.0-29.9, adult; Z79.01 Long term (current) use of anticoagulants; Z88.6 Allergy status to analgesic agent; Z91.018 Allergy to other foods; Z88.5 Allergy status to narcotic agent; Z88.8 Allergy status to other drugs, medicaments and biological substances; Z79.899 Other long term (current) drug therapy
CPT/HCPCS: 74019; 93005; 96372; 99283; A9270; J1885

== ENCOUNTER 2021-02-12 08:51 | Emergency (ER) | payer OTHER ==
[2021-02-12] MEDS ORDERED: HYDROmorphone 0.5 MG/0.5 ML Syringe IVPUSH ONE ×2 (09:24→11:13)
[2021-02-12] MEDS ORDERED: Sodium Chloride 0.9% 10 ML Syringe FLUSH PRN (09:24)
[2021-02-12] MEDS ORDERED: Diltiazem 50 MG/10 ML SDV IVPUSH ONE (09:58)
[2021-02-12] MEDS ORDERED: Diltiazem IR 30 MG Tab PO ONE (09:59)
[2021-02-12] MEDS ORDERED: Albuterol 0.083% 2.5 MG/3 ML Neb Soln NEB ONE (10:01)
--- NOTE | 2021-02-12 10:34 | EDM.PDOC ---
ED HPI GENERAL MEDICAL PROBLEM - General Chief Complaint: Lower Extremity Injury/Pain Stated Complaint: LT KNEE PAIN Time Seen by Provider: 02/12/21 09:08 Source of Information: Reports: Patient History Limitations: Reports: No Limitations - History of Present Illness INITIAL COMMENTS - FREE TEXT/NARRATIVE: 70-year-old male presents emergency department complaints of left knee pain. Per the patient the pain started 3 days ago. He states that he woke Thursday morning with the pain. States that his knee has become progressively more painful, swollen and reddened. Primarily over the dorsal aspect of the patella area. Painful to touch and ambulation. Patient denies any history of gout in the past. Denies any recent fever, chills, nausea, vomiting or diarrhea. Patient does have a history of COPD and is chronically dependent on 2 L of O2 per nasal cannula. He also wears a CPAP. He does have a history of atrial fib and takes Eliquis twice daily. However, he is on nothing for rate control. Left Upper Arm Pain Score (Numeric/FACES): 10 - Related Data Allergies Allergy/AdvReac Type Severity Reaction Status Date / Time acetaminophen [From Tylenol] Allergy Severe Airway Verified 02/12/21 10:05 Tightness aspirin Allergy Severe Airway Verified 02/12/21 10:05 Tightness horseradish Allergy Severe Airway Verified 02/12/21 10:05 Tightness ibuprofen Allergy Severe Airway Verified 02/12/21 10:05 Tightness meperidine HCl [From Demerol] Allergy Severe Airway Verified 02/12/21 10:05 Tightness morphine Allergy Severe Itching Verified 02/12/21 10:05 oxycodone Allergy Severe Rash Verified 02/12/21 10:05 sumatriptan [From Imitrex] Allergy Severe Cannot Verified 02/12/21 10:05 Remember sumatriptan succinate Allergy Severe Cannot Verified 02/12/21 10:05 [From Imitrex] Remember haloperidol [From Haldol] AdvReac Severe Change Verified 02/12/21 10:05 Mental Status haloperidol lactate AdvReac Severe Change Verified 02/12/21 10:05 [From Haldol] Mental Status ketorolac tromethamine AdvReac Severe Change Verified 02/12/21 10:05 [From Toradol] Mental Status antihistamines Allergy Severe Airway Uncoded 02/12/21 10:05 Tightness Home Meds: Home Meds Furosemide [Lasix] 40 mg PO DAILY 04/12/14 [History] PARoxetine HCl [Paxil] 20 mg PO DAILY 04/12/14 [History] Potassium Chloride 10 meq PO BID 04/12/14 [History] Tamsulosin HCl [Flomax] 0.4 mg PO DAILY 04/12/14 [History] Tiotropium [Spiriva HandiHaler] 1 cap INH DAILY 04/12/14 [History] Apixaban [Eliquis] 5 mg PO BID 01/23/16 [History] Ipratropium Bushnell 1 spray NASBOTH BID PRN 10/18/16 [History] Cholecalciferol (Vitamin D3) [Vitamin D] 1,000 unit PO BID 04/13/17 [History] Mirtazapine 30 mg PO BEDTIME 04/13/17 [History] Magnesium Oxide 420 mg PO BEDTIME 02/19/18 [History] Budesonide/Formoterol [Symbicort 160-4.5 MCG] 2 puff INH BID 04/18/19 [History] Verapamil HCl [Verapamil Sr] 120 mg PO DAILY 08/19/19 [History] guaiFENesin [Guaifenesin] 400 mg PO BID 08/20/19 [History] Levalbuterol Tartrate [Xopenex HFA] 1 puff INH Q6H #1 inhaler 08/22/19 [Rx] Cyanocobalamin (Vitamin B-12) [Vitamin B-12] 1 tab PO DAILY 12/10/19 [History] Famotidine 40 mg PO DAILY 12/10/19 [History] Finasteride 5 mg PO DAILY 12/10/19 [History] Lactobacillus Acidophilus [Acidophilus] 1 tab PO DAILY 12/10/19 [History] levalbuterol HCL [Xopenex] 1.25 mg NEB QID 12/10/19 [History] ClonazePAM [KlonoPIN] 0.5 mg PO BEDTIME #5 tablet 06/08/20 [Rx] Codeine/Promethazine [Phenergan with Codeine] 5 - 10 ml PO Q6HR PRN #300 ml 11/18/20 [Rx] Nitroglycerin 0.4 mg SL ASDIRECTED 11/18/20 [History] Simvastatin [Zocor] 10 mg PO BEDTIME 11/18/20 [History] predniSONE [Prednisone] 40 mg PO DAILY #10 tablet 11/18/20 [Rx] predniSONE [Prednisone] 40 mg PO DAILY #14 tablet 12/10/20 [Rx] Amoxicillin/Potassium Clav [Augmentin 875-125 Tablet] 1 each PO BID #10 tablet 12/17/20 [Rx] Azithromycin 250 mg PO DAILY #4 tablet 12/17/20 [Rx] Furosemide 40 mg PO BID #15 tablet 12/17/20 [Rx] predniSONE [Prednisone] 20 mg PO BID #35 tablet 12/17/20 [Rx] Diltiazem IR [Cardizem] 30 mg PO QID #12 tablet 02/12/21 [Rx] predniSONE [Prednisone] 20 mg PO BID #15 tablet 02/12/21 [Rx] traMADol [Ultram] 50 mg PO Q6H PRN #12 tab 02/12/21 [Rx] Past Medical History HEENT History: Reports: Impaired Vision, Other (See Below) Other HEENT History: upper/lower dentures Cardiovascular History: Reports: Afib, CAD, Heart Failure, High Cholesterol, Hypertension, NM, Other (See Below) Other Cardiovascular History: stents in 1999, 5 NM Respiratory History: Reports: COPD, Intubation, Previous, Sleep Apnea Gastrointestinal History: Reports: Chronic Constipation, GERD, PUD Genitourinary History: Reports: BPH, Chronic Renal Insuffiency Musculoskeletal History: Reports: None Neurological History: Reports: Headaches, Chronic Other Neuro History: patient reports minimal CARDENAS, will continue to monitor. Psychiatric History: Reports: Depression, PTSD Endocrine/Metabolic History: Reports: Diabetes, Type II, Obesity/BMI 30+, Other (See Below) Other Endocrine/Metabolic History: boardline diabetic- checks AM BS daily Hematologic History: Reports: Anticoagulation Therapy, B12 Deficiency - Infectious Disease History Infectious Disease History: Reports: Chicken Pox, Measles, Mumps - Past Surgical History HEENT Surgical History: Reports: Cataract Surgery, Naso-Sinus Surgery Other HEENT Surgeries/Procedures: OU Cardiovascular Surgical History: Reports: Coronary Artery Stent Other Cardiovascular Surgeries/Procedures: x3 GI Surgical History: Reports: Appendectomy, Colonoscopy, EGD Male Surgical History: Reports: Other (See Below) Other Male Surgeries/Procedures: testicle removed Musculoskeletal Surgical History: Reports: Hip Replacement Other Musculoskeletal Surgeries/Procedures:: bilateral hip replacements Oncologic Surgical History: Reports: Other (See Below) Social & Family History - Family History Family Medical History: No Pertinent Family History Oncologic: Reports: Leukemia Other Oncologic Family History: Brother - Caffeine Use Caffeine Use: Reports: Soda Other Caffeine Use: 2/day Caffeine Use Comment: 1-2 sodas - Living Situation & Occupation Living situation: Reports: , with Spouse Occupation: Retired Review of Systems - Review of Systems Review Of Systems: Comprehensive ROS is negative, except as noted in HPI. ED EXAM, GENERAL - Physical Exam Exam: See Below Exam Limited By: No Limitations General Appearance: Alert, WD/WN, Mild Distress Ears: Normal External Exam, Hearing Grossly Normal Nose: Normal Inspection Throat/Mouth: Normal Inspection, Normal Lips, Normal Voice, No Airway Compromise Head: Atraumatic Neck: Normal Inspection, Supple Respiratory/Chest: Chest Non-Tender, Wheezing. No: Lungs Clear, No Accessory Muscle Use Cardiovascular: Normal Peripheral Pulses, Regular Rate, Rhythm, No Murmur. No: No Edema (Left patellar area) Peripheral Pulses: 2+: Radial (L), Radial (R) GI/Abdominal: Normal Bowel Sounds, Soft, Non-Tender, No Distention (Male) Exam: Deferred Rectal (Males) Exam: Deferred Back Exam: Normal Inspection Extremities: Joint Swelling (Left knee), Limited Range of Motion (Left knee), Increased Warmth (Left knee), Redness (Left knee). No: Non-Tender (Left knee or patellar area exquisitely tender) Neurological: Alert, Oriented, Normal Cognition Psychiatric: Normal Affect, Normal Mood Skin Exam: Warm, Dry, Intact, No Rash, Erythema Lymphatic: No Adenopathy #1 Interpretation EKG Date: 02/12/21 Time: 09:06 Rhythm: A-Fib Rate (Beats/Min): 136 [place]: Normal P-Wave: Absent QRS: Normal ST-T: Normal QT: Normal EKG Interpretation Comments: Per Dr. Cochran interpretation: Atrial fibrillation at a rate of 136; low voltage, extremity leads; borderline prolonged QT interval Course - Vital Signs Text/Narrative:: As stated above, patient presents with left knee pain that started 3 days ago. Upon physical exam, the patient is moaning in pain. Dorsal aspect of left knee over the entire patellar area is erythematous and edematous. Patellar area is very hot to touch. Area extends medially just to the edge of the ventral aspect of his knee. He does not have any pain noted to the popliteal area. Patient is in an atrial fibrillation rhythm with rate in the 130s. Lung sounds reveal expiratory wheezes noted bilaterally. Currently 86% O2 saturations on room air. O2 was applied at 2 L per nasal cannula. We will have nursing staff place a saline lock and medicate the patient with Dilaudid. Will obtain lab studies to include a CBC, CMP, magnesium, C-reactive protein, lactic acid, uric acid and a sed rate. Also obtain an EKG as well as an x-ray of the left knee. Last Recorded V/S: Last Vital Signs Temp 97.1 F 02/12/21 09:00 Pulse 124 H 02/12/21 09:00 Resp 16 02/12/21 09:00 BP 132/87 02/12/21 09:00 Pulse Ox 91 L 02/12/21 10:01 - Orders/Labs/Meds Orders: Active Orders 24 hr Category Date Time Status RT Aerosol Therapy [RC] ASDIRECTED Care 02/12/21 10:01 Active Sodium Chloride 0.9% [Normal Saline] 1,000 ml Med 02/12/21 10:45 Active IV ASDIRECTED Sodium Chloride 0.9% [Normal Saline] 1,000 ml Med 02/12/21 13:15 Active IV ASDIRECTED Sodium Chloride 0.9% [Saline Flush] Med 02/12/21 09:24 Active 10 ml FLUSH ASDIRECTED PRN Saline Lock Insert [OM.PC] Stat Oth 02/12/21 09:24 Ordered Medication Orders Sodium Chloride (Normal Saline) 1,000 mls @ 250 mls/hr IV ASDIRECTED SANTOS Last Admin: 02/12/21 11:00 Dose: 250 mls/hr Documented by: MIKEY Sodium Chloride (Normal Saline) 1,000 mls @ 250 mls/hr IV ASDIRECTED SANTOS Sodium Chloride (Sodium Chloride 0.9% 10 Ml Syringe) 10 ml FLUSH ASDIRECTED PRN PRN Reason: Keep Vein Open Last Admin: 02/12/21 09:42 Dose: 10 ml Documented by: MIKEY Labs: Laboratory Tests 02/12/21 02/12/21 02/12/21 Range/Units 09:20 09:20 09:20 WBC 10.24 H (4.23-9.07) K/mm3 RBC 3.93 L (4.63-6.08) M/mm3 Hgb 13.1 L (13.7-17.5) gm/dl Hct 41.6 (40.1-51.0) % MCV 105.9 H (79.0-92.2) fl MCH 33.3 H (25.7-32.2) pg MCHC 31.5 L (32.2-35.5) g/dl RDW Std Deviation 62.2 H (35.1-43.9) fL Plt Count 258 (163-337) K/mm3 MPV 9.1 L (9.4-12.3) fl Neut % (Auto) 79.3 H (34.0-67.9) % Lymph % (Auto) 10.6 L (21.8-53.1) % [place] % (Auto) 6.9 (5.3-12.2) % Eos % (Auto) 2.5 (0.8-7.0) Baso % (Auto) 0.4 (0.1-1.2) % Neut # (Auto) 8.11 H (1.78-5.38) K/mm3 Lymph # (Auto) 1.09 L (1.32-3.57) K/mm3 [place] # (Auto) 0.71 (0.30-0.82) K/mm3 Eos # (Auto) 0.26 (0.04-0.54) K/mm3 Baso # (Auto) 0.04 (0.01-0.08) K/mm3 ESR 65 H (0-15) mm/hr Sodium 141 (136-145) mEq/L Potassium 3.5 (3.5-5.1) mEq/L Chloride 101 (98-107) mEq/L Carbon Dioxide 31 (21-32) mEq/L Anion Gap 12.5 (5-15) BUN 18 (7-18) mg/dL Creatinine 1.5 H (0.7-1.3) mg/dL Est Cr Clr Drug Dosing 41.62 mL/min Estimated GFR (MDRD) 46 (>60) mL/min BUN/Creatinine Ratio 12.0 L (14-18) Glucose 245 H (70-99) mg/dL Lactic Acid (0.4-2.0) mmol/L Uric Acid 9.0 H (3.5-7.2) mg/dL Calcium 9.1 (8.5-10.1) mg/dL Magnesium 2.0 (1.8-2.4) mg/dL Total Bilirubin 0.6 (0.2-1.0) mg/dL AST 9 L (15-37) U/L ALT 14 L (16-63) U/L Alkaline Phosphatase 120 H (46-116) U/L C-Reactive Protein 1.5 H* (<1.0) mg/dL Total Protein 7.1 (6.4-8.2) g/dl Albumin 3.2 L (3.4-5.0) g/dl Globulin 3.9 gm/dL Albumin/Globulin Ratio 0.8 L (1-2) 02/12/21 02/12/21 Range/Units 09:50 12:55 WBC (4.23-9.07) K/mm3 RBC (4.63-6.08) M/mm3 Hgb (13.7-17.5) gm/dl Hct (40.1-51.0) % MCV (79.0-92.2) fl MCH (25.7-32.2) pg MCHC (32.2-35.5) g/dl RDW Std Deviation (35.1-43.9) fL Plt Count (163-337) K/mm3 MPV (9.4-12.3) fl Neut % (Auto) (34.0-67.9) % Lymph % (Auto) (21.8-53.1) % [place] % (Auto) (5.3-12.2) % Eos % (Auto) (0.8-7.0) Baso % (Auto) (0.1-1.2) % Neut # (Auto) (1.78-5.38) K/mm3 Lymph # (Auto) (1.32-3.57) K/mm3 [place] # (Auto) (0.30-0.82) K/mm3 Eos # (Auto) (0.04-0.54) K/mm3 Baso # (Auto) (0.01-0.08) K/mm3 ESR (0-15) mm/hr Sodium (136-145) mEq/L Potassium (3.5-5.1) mEq/L Chloride (98-107) mEq/L Carbon Dioxide (21-32) mEq/L Anion Gap (5-15) BUN (7-18) mg/dL Creatinine (0.7-1.3) mg/dL Est Cr Clr Drug Dosing mL/min Estimated GFR (MDRD) (>60) mL/min BUN/Creatinine Ratio (14-18) Glucose (70-99) mg/dL Lactic Acid 2.2 H* 1.5 (0.4-2.0) mmol/L Uric Acid (3.5-7.2) mg/dL Calcium (8.5-10.1) mg/dL Magnesium (1.8-2.4) mg/dL Total Bilirubin (0.2-1.0) mg/dL AST (15-37) U/L ALT (16-63) U/L Alkaline Phosphatase (46-116) U/L C-Reactive Protein (<1.0) mg/dL Total Protein (6.4-8.2) g/dl Albumin (3.4-5.0) g/dl Globulin gm/dL Albumin/Globulin Ratio (1-2) Meds: Medications Generic Name Dose Route Start Last Admin Trade Name Freq PRN Reason Stop Dose Admin Sodium Chloride 1,000 mls @ 250 mls/hr 02/12/21 10:45 02/12/21 11:00 Normal Saline IV 250 mls/hr ASDIRECTED SANTOS Administration Sodium Chloride 1,000 mls @ 250 mls/hr 02/12/21 13:15 Normal Saline IV ASDIRECTED SANTOS Sodium Chloride 10 ml 02/12/21 09:24 02/12/21 09:42 Sodium Chloride 0.9% 10 Ml Syringe FLUSH 10 ml ASDIRECTED PRN Administration Keep Vein Open Discontinued Medications Generic Name Dose Route Start Last Admin Trade Name Freq PRN Reason Stop Dose Admin Albuterol 2.5 mg 02/12/21 10:01 02/12/21 10:22 Albuterol 0.083% 2.5 Mg/3 Ml Neb Soln NEB 02/12/21 10:02 2.5 mg ONETIME ONE Administration Diltiazem HCl 10 mg 02/12/21 09:58 02/12/21 10:13 Diltiazem 50 Mg/10 Ml Sdv IVPUSH 02/12/21 09:59 10 mg ONETIME ONE Administration Diltiazem HCl 30 mg 02/12/21 09:59 02/12/21 10:13 Diltiazem Ir 30 Mg Tab PO 02/12/21 10:00 30 mg ONETIME ONE Administration Hydromorphone HCl 0.5 mg 02/12/21 09:24 02/12/21 09:42 Hydromorphone 0.5 Mg/0.5 Ml Syringe IVPUSH 02/12/21 09:25 0.5 mg ONETIME ONE Administration Hydromorphone HCl 0.5 mg 02/12/21 11:13 02/12/21 11:17 Hydromorphone 0.5 Mg/0.5 Ml Syringe IVPUSH 02/12/21 11:14 0.5 mg ONETIME ONE Administration Prednisone 20 mg 02/12/21 10:57 02/12/21 11:00 Prednisone 20 Mg Tab PO 02/12/21 10:58 20 mg ONETIME ONE Administration - Re-Assessments/Exams Free Text/Narrative Re-Assessment/Exam: 02/12/21 10:52 Hematology reveals a WBC of 10.24, hemoglobin 13.1, hematocrit 41.6, platelet count 258, ESR 65 Chemistry reveals a sodium of 141, potassium 3.5, anion gap 12.5, BUN 18, creatinine 1.5, glucose 245, lactic acid 2.2, uric acid 9.0, magnesium 2.0, AST 9, ALT 14, alk phos 120, C-reactive protein 1.5 Patient does likely have gout. He is unable to take NSAIDs so we will start him on prednisone for treatment. Due to the patient's lactic acid being elevated at 2.2, will give him normal saline at 250 an hour for 2 hours. Patient also did receive Cardizem 10 mg IV and Cardizem 30 mg tabs for rate control. 02/12/21 12:52 Radiologist impression AP lateral and sunrise patella views of the left knee were obtained: Mild medial joint space narrowing is seen. Lateral joint space is preserved. Patellofemoral joint appears within normal limits. No joint effusion is seen. Small bony density is noted overlying the lateral joint on AP view which is felt to be posterior to the joint on the lateral there. Impression: 1. Mild medial joint space narrowing. 2. Other incidental findings as noted above. 02/12/21 13:55 Repeat lactic acid level is 1.5. Heart rate is down in the 80s, continues in A. fib rhythm. 02/12/21 14:[address] Cochran regarding home dose of Cardizem and he recommends 30 mg QID. Pt will need to follow up with his primary care provider in the next 2- 3 days. Departure - Departure Time of Disposition: 14:06 Disposition: Home, Self-Care 01 Condition: Good Clinical Impression: Atrial fibrillation with RVR Gout Qualifiers: Gout site: knee Gout etiology: unspecified cause Chronicity: acute Laterality: left Qualified Code(s): M10.9 - Gout, unspecified - Discharge Information Prescriptions: Diltiazem IR [Cardizem] 30 mg PO QID #12 tablet predniSONE [Prednisone] 20 mg PO BID #15 tablet traMADol [Ultram] 50 mg PO Q6H PRN #12 tab PRN Reason: Pain (Moderate 4-6) Instructions: Gout, [id number] Referrals: Ana Benjamin MD [Primary Care Provider] - Forms: ED Department Discharge Additional Instructions: You were seen in the emergency department today with increased pain and redness to her left knee. Your heart rate was also beating quite quickly in an irregular rhythm. Lab studies were completed as well as an EKG and an x-ray of your left knee. Labs did show that your uric acid level was elevated as well as your inflammatory markers which indicate that gout is the cause of your knee pain. Treatment for this is prednisone. You did receive your first dose while in the emergency department. I have sent a prescription to your pharmacy for prednisone 20 mg to be taken twice daily for 5 days and then once daily for another 5 days. X-rays were completed which were essentially unremarkable however they did show some arthritis. You were given pain medication while in the emergency department as well as IV fluids. You are also given medication to treat your heart rate. I have sent prescription for this medication to your pharmacy. It is called Cardizem. You will need to take 1 tablet 4 times daily. I would like you to follow-up with the [facility] or Thursday of this week for reevaluation of your heart rate and your gout. I have also sent a prescription for pain medication called tramadol. You may take 1 tab every 6 hours as needed for more severe pain. Should your condition worsen or change, do not hesitate returning to the emergency department. Sepsis Event Note (ED) - Evaluation Sepsis Screening Result: No Definite Risk - Focused Exam Vital Signs: Vital Signs Temp Pulse Resp BP Pulse Ox Pulse Ox 02/12/21 10:01 91 L 02/12/21 09:00 97.1 F 124 H 16 132/87 95 - My Orders Last 24 Hours: My Active Orders 02/12/21 09:24 Sodium Chloride 0.9% [Saline Flush] 10 ml FLUSH ASDIRECTED PRN Saline Lock Insert [OM.PC] Stat 02/12/21 10:01 RT Aerosol Therapy [RC] ASDIRECTED 02/12/21 10:45 Sodium Chloride 0.9% [Normal Saline] 1,000 ml IV ASDIRECTED 02/12/21 13:15 Sodium Chloride 0.9% [Normal Saline] 1,000 ml IV ASDIRECTED - Assessment/Plan Last 24 Hours: My Active Orders 02/12/21 09:24 Sodium Chloride 0.9% [Saline Flush] 10 ml FLUSH ASDIRECTED PRN Saline Lock Insert [OM.PC] Stat 02/12/21 10:01 RT Aerosol Therapy [RC] ASDIRECTED 02/12/21 10:45 Sodium Chloride 0.9% [Normal Saline] 1,000 ml IV ASDIRECTED 02/12/21 13:15 Sodium Chloride 0.9% [Normal Saline] 1,000 ml IV ASDIRECTED
[2021-02-12] MEDS ORDERED: Sodium Chloride 0.9% 1,000 ML IV SCH ×2 (10:45→13:15)
[2021-02-12] MEDS ORDERED: predniSONE 20 MG Tab PO ONE (10:57)
--- NOTE | 2021-02-12 11:27 | CR ---
Left knee: AP, lateral and sunrise patellar views of the left knee were obtained. Comparison: No prior left knee exam is available. Mild medial joint space narrowing is seen. Lateral joint space is preserved. Patellofemoral joint appears within normal limits. No joint effusion is seen. Small bony density is noted overlying the lateral joint on the AP view which is felt to be posterior to the joint on the lateral view. Impression: 1. Mild medial joint space narrowing. 2. Other incidental findings as noted above. Diagnostic code #2
[2021-02-12 16:06] VITALS: BP 110/87; PULSE 87
== END 2021-02-12 14:40 | disposition home or self-care (01) ==
LOC: JD.ED 08:51
DX: M25.562 Pain in left knee (principal); I48.91 Unspecified atrial fibrillation; I25.10 Atherosclerotic heart disease of native coronary artery without angina pectoris; I13.0 Hypertensive heart and chronic kidney disease with heart failure and stage 1 through stage 4 chronic kidney disease, or unspecified chronic kidney disease; I50.9 Heart failure, unspecified; I25.2 Old myocardial infarction; J44.9 Chronic obstructive pulmonary disease, unspecified; K21.9 Gastro-esophageal reflux disease without esophagitis; N40.0 Benign prostatic hyperplasia without lower urinary tract symptoms; E11.22 Type 2 diabetes mellitus with diabetic chronic kidney disease; E78.00 Pure hypercholesterolemia, unspecified; E66.9 Obesity, unspecified; Z68.29 Body mass index [BMI] 29.0-29.9, adult; Z88.6 Allergy status to analgesic agent; Z91.018 Allergy to other foods; Z88.5 Allergy status to narcotic agent; Z88.8 Allergy status to other drugs, medicaments and biological substances; Z79.01 Long term (current) use of anticoagulants; Z79.899 Other long term (current) drug therapy
CPT/HCPCS: 36415; 73562; 80053; 83605; 83735; 84550; 85025; 85652; 86140; 94640; 96374; 96375; 96376; 99284; A9270; J1170; J3490; J7030; J7512

== ENCOUNTER 2021-03-02 09:30 | Emergency (ER) | payer OTHER ==
[2021-03-02 09:45] VITALS: BP 108/76; PULSE 93
[2021-03-02] MEDS ORDERED: Sodium Chloride 0.9% 10 ML Syringe FLUSH PRN (09:52)
[2021-03-02] MEDS ORDERED: methylPREDNISolone Sodium Succinate 125 MG/2 ML SDV IVPUSH ONE (09:53)
[2021-03-02] MEDS ORDERED: Albuterol/Ipratropium 3.0-0.5 MG/3 ML Neb Soln NEB ONE ×2 (09:54→12:06)
[2021-03-02] MEDS ORDERED: HYDROmorphone 0.5 MG/0.5 ML Syringe IVPUSH ONE (09:54)
[2021-03-02] MEDS ORDERED: Magnesium Sulfate/Water 2 GM in Premix Bag 1 BAG IV ONE (09:54)
[2021-03-02] MEDS ORDERED: Doxycycline 100 MG Cap PO ONE (13:18)
--- NOTE | 2021-03-02 13:56 | EDM.PDOC ---
ED HPI GENERAL MEDICAL PROBLEM - General Chief Complaint: Respiratory Problem Stated Complaint: TROUBLE BREATHING/CHEST PAIN Time Seen by Provider: 03/02/21 09:48 Source of Information: Reports: Patient History Limitations: Reports: No Limitations - History of Present Illness INITIAL COMMENTS - FREE TEXT/NARRATIVE: The patient presents with a cough and shortness of breath. This has been going on since Thursday. He has a history of COPD. He has oxygen at home. He just saw his doctor on Thursday and everything was good. He said he noticed some water in his CPAP line. He started coughing after that. He has no fever or chills. He does have some chest pain. He has no swelling in his legs. Onset: Gradual Duration: Day(s): Severity: Moderate Improves with: Reports: None Worsens with: Reports: None Associated Symptoms: Reports: Cough, Shortness of Breath. Denies: Chest Pain, Fever/Chills, Headaches, Nausea/Vomiting Headache Pain Score (Numeric/FACES): 10 - Related Data Allergies Allergy/AdvReac Type Severity Reaction Status Date / Time acetaminophen [From Tylenol] Allergy Severe Airway Verified 03/02/21 09:46 Tightness aspirin Allergy Severe Airway Verified 03/02/21 09:46 Tightness horseradish Allergy Severe Airway Verified 03/02/21 09:46 Tightness ibuprofen Allergy Severe Airway Verified 03/02/21 09:46 Tightness meperidine HCl [From Demerol] Allergy Severe Airway Verified 03/02/21 09:46 Tightness morphine Allergy Severe Itching Verified 03/02/21 09:46 oxycodone Allergy Severe Rash Verified 03/02/21 09:46 sumatriptan [From Imitrex] Allergy Severe Cannot Verified 03/02/21 09:46 Remember sumatriptan succinate Allergy Severe Cannot Verified 03/02/21 09:46 [From Imitrex] Remember haloperidol [From Haldol] AdvReac Severe Change Verified 03/02/21 09:46 Mental Status haloperidol lactate AdvReac Severe Change Verified 03/02/21 09:46 [From Haldol] Mental Status ketorolac tromethamine AdvReac Severe Change Verified 03/02/21 09:46 [From Toradol] Mental Status antihistamines Allergy Severe Airway Uncoded 02/12/21 10:05 Tightness Home Meds: Home Meds Furosemide [Lasix] 40 mg PO DAILY 04/12/14 [History] PARoxetine HCl [Paxil] 20 mg PO DAILY 04/12/14 [History] Potassium Chloride 10 meq PO BID 04/12/14 [History] Tamsulosin HCl [Flomax] 0.4 mg PO DAILY 04/12/14 [History] Tiotropium [Spiriva HandiHaler] 1 cap INH DAILY 04/12/14 [History] Apixaban [Eliquis] 5 mg PO BID 01/23/16 [History] Ipratropium Philo 1 spray NASBOTH BID PRN 10/18/16 [History] Cholecalciferol (Vitamin D3) [Vitamin D] 1,000 unit PO BID 04/13/17 [History] Mirtazapine 30 mg PO BEDTIME 04/13/17 [History] Magnesium Oxide 420 mg PO BEDTIME 02/19/18 [History] Budesonide/Formoterol [Symbicort 160-4.5 MCG] 2 puff INH BID 04/18/19 [History] Verapamil HCl [Verapamil Sr] 120 mg PO DAILY 08/19/19 [History] guaiFENesin [Guaifenesin] 400 mg PO BID 08/20/19 [History] Levalbuterol Tartrate [Xopenex HFA] 1 puff INH Q6H #1 inhaler 08/22/19 [Rx] Cyanocobalamin (Vitamin B-12) [Vitamin B-12] 1 tab PO DAILY 12/10/19 [History] Famotidine 40 mg PO DAILY 12/10/19 [History] Finasteride 5 mg PO DAILY 12/10/19 [History] Lactobacillus Acidophilus [Acidophilus] 1 tab PO DAILY 12/10/19 [History] levalbuterol HCL [Xopenex] 1.25 mg NEB QID 12/10/19 [History] ClonazePAM [KlonoPIN] 0.5 mg PO BEDTIME #5 tablet 06/08/20 [Rx] Codeine/Promethazine [Phenergan with Codeine] 5 - 10 ml PO Q6HR PRN #300 ml 11/18/20 [Rx] Nitroglycerin 0.4 mg SL ASDIRECTED 11/18/20 [History] Simvastatin [Zocor] 10 mg PO BEDTIME 11/18/20 [History] predniSONE [Prednisone] 40 mg PO DAILY #10 tablet 11/18/20 [Rx] predniSONE [Prednisone] 40 mg PO DAILY #14 tablet 12/10/20 [Rx] Amoxicillin/Potassium Clav [Augmentin 875-125 Tablet] 1 each PO BID #10 tablet 12/17/20 [Rx] Azithromycin 250 mg PO DAILY #4 tablet 12/17/20 [Rx] Furosemide 40 mg PO BID #15 tablet 12/17/20 [Rx] predniSONE [Prednisone] 20 mg PO BID #35 tablet 12/17/20 [Rx] Diltiazem IR [Cardizem] 30 mg PO QID #12 tablet 02/12/21 [Rx] predniSONE [Prednisone] 20 mg PO BID #15 tablet 02/12/21 [Rx] traMADol [Ultram] 50 mg PO Q6H PRN #12 tab 02/12/21 [Rx] Doxycycline [Vibra-Tabs] 100 mg PO Q12HR #20 tab 03/02/21 [Rx] predniSONE [Prednisone] 40 mg PO DAILY #10 tablet 03/02/21 [Rx] Past Medical History HEENT History: Reports: Impaired Vision, Other (See Below) Other HEENT History: upper/lower dentures Cardiovascular History: Reports: Afib, CAD, Heart Failure, High Cholesterol, Hypertension, DE, Other (See Below) Other Cardiovascular History: stents in 1999, 5 DE Respiratory History: Reports: COPD, Intubation, Previous, Sleep Apnea Gastrointestinal History: Reports: Chronic Constipation, GERD, PUD Genitourinary History: Reports: BPH, Chronic Renal Insuffiency Musculoskeletal History: Reports: Gout Neurological History: Reports: Headaches, Chronic Other Neuro History: patient reports minimal CARDENAS, will continue to monitor. Psychiatric History: Reports: Depression, PTSD Endocrine/Metabolic History: Reports: Diabetes, Type II, Obesity/BMI 30+, Other (See Below) Other Endocrine/Metabolic History: boardline diabetic- checks AM BS daily Hematologic History: Reports: Anticoagulation Therapy, B12 Deficiency - Infectious Disease History Infectious Disease History: Reports: Chicken Pox, Measles, Mumps - Past Surgical History Head Surgeries/Procedures: Reports: None HEENT Surgical History: Reports: Cataract Surgery, Naso-Sinus Surgery Other HEENT Surgeries/Procedures: OU Cardiovascular Surgical History: Reports: Coronary Artery Stent Other Cardiovascular Surgeries/Procedures: x3 Respiratory Surgical History: Reports: None GI Surgical History: Reports: Appendectomy, Colonoscopy, EGD Male Surgical History: Reports: Other (See Below) Other Male Surgeries/Procedures: testicle removed Endocrine Surgical History: Reports: None Neurological Surgical History: Reports: None Musculoskeletal Surgical History: Reports: Hip Replacement Other Musculoskeletal Surgeries/Procedures:: bilateral hip replacements Oncologic Surgical History: Reports: Other (See Below) Social & Family History - Family History Family Medical History: No Pertinent Family History Oncologic: Reports: Leukemia Other Oncologic Family History: Brother - Tobacco Use Tobacco Use Status *Q: Former Tobacco User Used Tobacco, but Quit: Yes Month/Year Tobacco Last Used: 2014 - Caffeine Use Caffeine Use: Reports: None Other Caffeine Use: 2/day Caffeine Use Comment: 1-2 sodas - Recreational Drug Use Recreational Drug Use: No - Living Situation & Occupation Living situation: Reports: , with Spouse Occupation: Retired ED ROS GENERAL - Review of Systems Review Of Systems: See Below Constitutional: Reports: No Symptoms HEENT: Reports: No Symptoms Respiratory: Reports: Shortness of Breath, Cough Cardiovascular: Reports: No Symptoms Endocrine: Reports: No Symptoms GI/Abdominal: Reports: No Symptoms : Reports: No Symptoms Musculoskeletal: Reports: No Symptoms ED EXAM, GENERAL - Physical Exam Exam: See Below Exam Limited By: No Limitations General Appearance: Alert, No Apparent Distress Ears: Normal External Exam Nose: Normal Inspection Head: Atraumatic, Normocephalic Neck: Normal Inspection Respiratory/Chest: No Respiratory Distress, Decreased Breath Sounds, Wheezing Cardiovascular: Regular Rate, Rhythm, No Edema, No Murmur GI/Abdominal: Soft, Non-Tender, No Organomegaly, No Mass Back Exam: Normal Inspection Extremities: Normal Inspection #1 Interpretation EKG Date: 03/02/21 Time: 09:41 Rhythm: A-Fib Rate (Beats/Min): 95 [place]: Normal P-Wave: Absent QRS: Normal ST-T: Normal QT: Normal Course - Vital Signs Last Recorded V/S: Last Vital Signs Temp 98.0 F 03/02/21 09:44 Pulse 93 03/02/21 09:44 Resp 25 H 03/02/21 09:44 BP 108/76 03/02/21 09:44 Pulse Ox 95 03/02/21 12:06 - Orders/Labs/Meds Orders: Active Orders 24 hr Category Date Time Status Cardiac Monitoring [RC] . DIRECTED Care 03/02/21 09:52 Active Oxygen Therapy [RC] PRN Care 03/02/21 09:52 Active Peripheral IV Care [RC] . DIRECTED Care 03/02/21 09:53 Active RT Aerosol Therapy [RC] ASDIRECTED Care 03/02/21 09:54 Active RT Aerosol Therapy [RC] ASDIRECTED Care 03/02/21 12:06 Active Chest 1V Frontal [CR] Stat Exams 03/02/21 09:53 Taken Sodium Chloride 0.9% [Saline Flush] Med 03/02/21 09:52 Active 10 ml FLUSH ASDIRECTED PRN Peripheral IV Insertion Adult [OM.PC] Stat Oth 03/02/21 09:52 Ordered Medication Orders Sodium Chloride (Sodium Chloride 0.9% 10 Ml Syringe) 10 ml FLUSH ASDIRECTED PRN PRN Reason: Keep Vein Open Last Admin: 03/02/21 10:09 Dose: 10 ml Documented by: FREEMAN Labs: Laboratory Tests 03/02/21 03/02/21 03/02/21 Range/Units 09:50 09:50 09:50 WBC 11.46 H (4.23-9.07) K/mm3 RBC 3.98 L (4.63-6.08) M/mm3 Hgb 13.3 L (13.7-17.5) gm/dl Hct 42.0 (40.1-51.0) % MCV 105.5 H (79.0-92.2) fl MCH 33.4 H (25.7-32.2) pg MCHC 31.7 L (32.2-35.5) g/dl RDW Std Deviation 56.8 H (35.1-43.9) fL Plt Count 174 D (163-337) K/mm3 MPV 9.7 (9.4-12.3) fl Neut % (Auto) 82.6 H (34.0-67.9) % Lymph % (Auto) 8.9 L (21.8-53.1) % Jay % (Auto) 7.0 (5.3-12.2) % Eos % (Auto) 0.9 (0.8-7.0) Baso % (Auto) 0.3 (0.1-1.2) % Neut # (Auto) 9.48 H (1.78-5.38) K/mm3 Lymph # (Auto) 1.02 L (1.32-3.57) K/mm3 Jay # (Auto) 0.80 (0.30-0.82) K/mm3 Eos # (Auto) 0.10 (0.04-0.54) K/mm3 Baso # (Auto) 0.03 (0.01-0.08) K/mm3 Sodium 136 (136-145) mEq/L Potassium 4.0 (3.5-5.1) mEq/L Chloride 98 (98-107) mEq/L Carbon Dioxide 29 (21-32) mEq/L Anion Gap 13.0 (5-15) BUN 14 (7-18) mg/dL Creatinine 1.5 H (0.7-1.3) mg/dL Est Cr Clr Drug Dosing 41.62 mL/min Estimated GFR (MDRD) 46 (>60) mL/min BUN/Creatinine Ratio 9.3 L (14-18) Glucose 316 H (70-99) mg/dL Calcium 9.0 (8.5-10.1) mg/dL Magnesium 1.7 L (1.8-2.4) mg/dL Total Bilirubin 1.2 H (0.2-1.0) mg/dL AST 14 L (15-37) U/L ALT 28 (16-63) U/L Alkaline Phosphatase 119 H (46-116) U/L Troponin I < 0.017 (0.00-0.056) ng/mL C-Reactive Protein 14.7 H* (<1.0) mg/dL Total Protein 6.7 (6.4-8.2) g/dl Albumin 2.9 L (3.4-5.0) g/dl Globulin 3.8 gm/dL Albumin/Globulin Ratio 0.8 L (1-2) SARS-CoV-2 RNA (JOHN) Negative (NEGATIVE) Meds: Medications Generic Name Dose Route Start Last Admin Trade Name Freq PRN Reason Stop Dose Admin Sodium Chloride 10 ml 03/02/21 09:52 03/02/21 10:09 Sodium Chloride 0.9% 10 Ml Syringe FLUSH 10 ml ASDIRECTED PRN Administration Keep Vein Open Discontinued Medications Generic Name Dose Route Start Last Admin Trade Name Freq PRN Reason Stop Dose Admin Albuterol/Ipratropium 3 ml 03/02/21 09:54 03/02/21 10:09 Albuterol/Ipratropium 3.0-0.5 Mg/3 Ml Neb Soln NEB 03/02/21 09:55 3 ml ONETIME ONE Administration Albuterol/Ipratropium 3 ml 03/02/21 12:06 03/02/21 12:19 Albuterol/Ipratropium 3.0-0.5 Mg/3 Ml Neb Soln NEB 03/02/21 12:07 3 ml ONETIME ONE Administration Doxycycline Hyclate 100 mg 03/02/21 13:18 03/02/21 13:29 Doxycycline 100 Mg Cap PO 03/02/21 13:19 100 mg ONETIME ONE Administration Hydromorphone HCl 0.5 mg 03/02/21 09:54 03/02/21 10:08 Hydromorphone 0.5 Mg/0.5 Ml Syringe IVPUSH 03/02/21 09:55 0.5 mg ONETIME ONE Administration Magnesium Sulfate 2 gm/ Premix 50 mls @ 25 mls/hr 03/02/21 09:54 03/02/21 1 0:09 IV 03/02/21 11:53 25 mls/hr ONETIME ONE Administration Methylprednisolone Sodium Succinate 125 mg 03/02/21 09:53 03/02/21 10:09 Methylprednisolone Sodium Succinate 125 Mg/2 Ml Sdv IVPUSH 03/02/21 09:54 125 mg ONETIME ONE Administration - Re-Assessments/Exams Free Text/Narrative Re-Assessment/Exam: 03/02/21 13:56 I ordered an IV, oxygen, duoneb, solu-medrol 125mg IV, EKG, CXR and labs. His EKG shows atrial fibrillation with no acute changes. 03/02/21 13:57 His EKG shows atrial fibrillation with no acute changes. His CXR shows non infiltrates. His WBC was elevated at 11.46. His Hgb was 13.3. His creatinine was elevated at 1.5. His glucose is elevated at 316. His total bili was elevated at 1.2. His troponin is negative. His CRP is elevated at 14.7. His COVID is negative. I feel he has bronchitis. I will give him a dose of doxycycline 100g and a prescription for more. I will also get him on a steroid. Departure - Departure Time of Disposition: 14:00 Disposition: Home, Self-Care 01 Condition: Good Clinical Impression: Bronchitis - Discharge Information *PRESCRIPTION DRUG MONITORING PROGRAM REVIEWED*: Not Applicable *COPY OF PRESCRIPTION DRUG MONITORING REPORT IN PATIENT DANITZA: Not Applicable Prescriptions: predniSONE [Prednisone] 40 mg PO DAILY #10 tablet Doxycycline [Vibra-Tabs] 100 mg PO Q12HR #20 tab Referrals: Ana Benjamin MD [Primary Care Provider] - 1 Week Forms: ED Department Discharge Additional Instructions: Take your medication's as prescribed. Take the prednisone 40mg daily for 5 days. Take the doxycycline 2 times per day for 10 days. Please return if you are worse. Sepsis Event Note (ED) - Focused Exam Vital Signs: Vital Signs Temp Pulse Resp BP Pulse Ox Pulse Ox 03/02/21 12:06 95 03/02/21 09:54 94 L 03/02/21 09:44 98.0 F 93 25 H 108/76 80 L - My Orders Last 24 Hours: My Active Orders 03/02/21 09:52 Cardiac Monitoring [RC] . DIRECTED Oxygen Therapy [RC] PRN Sodium Chloride 0.9% [Saline Flush] 10 ml FLUSH ASDIRECTED PRN Peripheral IV Insertion Adult [OM.PC] Stat 03/02/21 09:53 Peripheral IV Care [RC] . DIRECTED Chest 1V Frontal [CR] Stat 03/02/21 09:54 RT Aerosol Therapy [RC] ASDIRECTED 03/02/21 12:06 RT Aerosol Therapy [RC] ASDIRECTED - Assessment/Plan Last 24 Hours: My Active Orders 03/02/21 09:52 Cardiac Monitoring [RC] . DIRECTED Oxygen Therapy [RC] PRN Sodium Chloride 0.9% [Saline Flush] 10 ml FLUSH ASDIRECTED PRN Peripheral IV Insertion Adult [OM.PC] Stat 03/02/21 09:53 Peripheral IV Care [RC] . DIRECTED Chest 1V Frontal [CR] Stat 03/02/21 09:54 RT Aerosol Therapy [RC] ASDIRECTED 03/02/21 12:06 RT Aerosol Therapy [RC] ASDIRECTED
--- NOTE | 2021-03-02 18:51 | CR ---
Chest: Frontal view of the chest was obtained. Comparison: Prior chest x-ray of 12/17/20. Heart is enlarged. Findings are stable from prior chest x-ray. Lungs show nothing acute from prior study. Bony structures also show nothing acute. Impression: 1. Cardiomegaly which is stable. 2. Nothing acute is seen from prior chest x-ray. Diagnostic code #2
== END 2021-03-02 14:20 | disposition home or self-care (01) ==
LOC: JD.ED 09:30
DX: J40 Bronchitis, not specified as acute or chronic (principal); I48.91 Unspecified atrial fibrillation; I25.10 Atherosclerotic heart disease of native coronary artery without angina pectoris; I13.0 Hypertensive heart and chronic kidney disease with heart failure and stage 1 through stage 4 chronic kidney disease, or unspecified chronic kidney disease; E11.22 Type 2 diabetes mellitus with diabetic chronic kidney disease; N18.9 Chronic kidney disease, unspecified; I50.9 Heart failure, unspecified; E78.00 Pure hypercholesterolemia, unspecified; I25.2 Old myocardial infarction; J44.9 Chronic obstructive pulmonary disease, unspecified; K21.9 Gastro-esophageal reflux disease without esophagitis; N40.0 Benign prostatic hyperplasia without lower urinary tract symptoms; M10.9 Gout, unspecified; E66.9 Obesity, unspecified; Z68.30 Body mass index [BMI] 30.0-30.9, adult; Z87.891 Personal history of nicotine dependence; Z88.6 Allergy status to analgesic agent; Z91.018 Allergy to other foods; Z88.5 Allergy status to narcotic agent; Z88.8 Allergy status to other drugs, medicaments and biological substances; Z79.01 Long term (current) use of anticoagulants; Z79.899 Other long term (current) drug therapy; Z20.822 Contact with and (suspected) exposure to COVID-19
CPT/HCPCS: 36415; 71045; 80053; 83735; 84484; 85025; 86140; 87635; 93005; 94640; 96365; 96366; 96375; 99285; A9270; J1170; J2930; J3475; J7620-GY; U0002

== ENCOUNTER 2021-03-25 03:16 | Emergency (ER) | payer OTHER ==
[2021-03-25 03:44] VITALS: BP 128/89; PULSE 97
--- NOTE | 2021-03-25 04:07 | EDM.PDOC ---
ED HPI GENERAL MEDICAL PROBLEM - General Chief Complaint: Respiratory Problem Stated Complaint: SOB Time Seen by Provider: 03/25/21 03:58 - History of Present Illness INITIAL COMMENTS - FREE TEXT/NARRATIVE: 1-year-old male presents the emergency room with worsening shortness of breath. Patient awoke several hours ago with worsening shortness of breath. Try changing for disposition the did several nebulizers he thinks 3 or 4 albuterol followed by a Xopenex this did not help. Patient was seen roughly a month ago with similar complaints. He denies any fevers or chills but states he gets pneumonia pretty easily. He has not had any nausea or vomiting he has a bit of chest discomfort but this is normal for him when he coughs. He is coughing up quite a bit of sputum. He is not aware of any fevers or chills. Right Chest Pain Score (Numeric/FACES): 7 - Related Data Allergies Allergy/AdvReac Type Severity Reaction Status Date / Time acetaminophen [From Tylenol] Allergy Severe Airway Verified 03/25/21 03:32 Tightness aspirin Allergy Severe Airway Verified 03/25/21 03:32 Tightness horseradish Allergy Severe Airway Verified 03/25/21 03:32 Tightness ibuprofen Allergy Severe Airway Verified 03/25/21 03:32 Tightness meperidine HCl [From Demerol] Allergy Severe Airway Verified 03/25/21 03:32 Tightness morphine Allergy Severe Itching Verified 03/25/21 03:32 oxycodone Allergy Severe Rash Verified 03/25/21 03:32 sumatriptan [From Imitrex] Allergy Severe Cannot Verified 03/25/21 03:32 Remember sumatriptan succinate Allergy Severe Cannot Verified 03/25/21 03:32 [From Imitrex] Remember haloperidol [From Haldol] AdvReac Severe Change Verified 03/25/21 03:32 Mental Status haloperidol lactate AdvReac Severe Change Verified 03/25/21 03:32 [From Haldol] Mental Status ketorolac tromethamine AdvReac Severe Change Verified 03/25/21 03:32 [From Toradol] Mental Status antihistamines Allergy Severe Airway Uncoded 03/25/21 03:32 Tightness Home Meds: Home Meds Furosemide [Lasix] 40 mg PO DAILY 04/12/14 [History] PARoxetine HCl [Paxil] 20 mg PO DAILY 04/12/14 [History] Potassium Chloride 10 meq PO BID 04/12/14 [History] Tamsulosin HCl [Flomax] 0.4 mg PO DAILY 04/12/14 [History] Tiotropium [Spiriva HandiHaler] 1 cap INH DAILY 04/12/14 [History] Apixaban [Eliquis] 5 mg PO BID 01/23/16 [History] Ipratropium [place] 1 spray NASBOTH BID PRN 10/18/16 [History] Cholecalciferol (Vitamin D3) [Vitamin D] 1,000 unit PO BID 04/13/17 [History] Mirtazapine 30 mg PO BEDTIME 04/13/17 [History] Magnesium Oxide 420 mg PO BEDTIME 02/19/18 [History] Budesonide/Formoterol [Symbicort 160-4.5 MCG] 2 puff INH BID 04/18/19 [History] Verapamil HCl [Verapamil Sr] 120 mg PO DAILY 08/19/19 [History] guaiFENesin [Guaifenesin] 400 mg PO BID 08/20/19 [History] Levalbuterol Tartrate [Xopenex HFA] 1 puff INH Q6H #1 inhaler 08/22/19 [Rx] Cyanocobalamin (Vitamin B-12) [Vitamin B-12] 1 tab PO DAILY 12/10/19 [History] Famotidine 40 mg PO DAILY 12/10/19 [History] Finasteride 5 mg PO DAILY 12/10/19 [History] Lactobacillus Acidophilus [Acidophilus] 1 tab PO DAILY 12/10/19 [History] levalbuterol HCL [Xopenex] 1.25 mg NEB QID 12/10/19 [History] ClonazePAM [KlonoPIN] 0.5 mg PO BEDTIME #5 tablet 06/08/20 [Rx] Codeine/Promethazine [Phenergan with Codeine] 5 - 10 ml PO Q6HR PRN #300 ml 11/18/20 [Rx] Nitroglycerin 0.4 mg SL ASDIRECTED 11/18/20 [History] Simvastatin [Zocor] 10 mg PO BEDTIME 11/18/20 [History] Amoxicillin/Potassium Clav [Augmentin 875-125 Tablet] 1 each PO BID #10 tablet 12/17/20 [Rx] Furosemide 40 mg PO BID #15 tablet 12/17/20 [Rx] Diltiazem IR [Cardizem] 30 mg PO QID #12 tablet 02/12/21 [Rx] traMADol [Ultram] 50 mg PO Q6H PRN #12 tab 02/12/21 [Rx] Doxycycline [Vibra-Tabs] 100 mg PO Q12HR #20 tab 03/02/21 [Rx] predniSONE 40 mg PO QAM #8 tab 03/25/21 [Rx] Past Medical History HEENT History: Reports: Impaired Vision, Other (See Below) Other HEENT History: upper/lower dentures Cardiovascular History: Reports: Afib, CAD, Heart Failure, High Cholesterol, Hypertension, MS, Other (See Below) Other Cardiovascular History: stents in 1999, 5 MS Respiratory History: Reports: COPD, Intubation, Previous, Sleep Apnea Gastrointestinal History: Reports: Chronic Constipation, GERD, PUD Genitourinary History: Reports: BPH, Chronic Renal Insuffiency Musculoskeletal History: Reports: Gout Neurological History: Reports: Headaches, Chronic Other Neuro History: patient reports minimal CARDENAS, will continue to monitor. Psychiatric History: Reports: Depression, PTSD Endocrine/Metabolic History: Reports: Diabetes, Type II, Obesity/BMI 30+, Other (See Below) Other Endocrine/Metabolic History: boardline diabetic- checks AM BS daily Hematologic History: Reports: Anticoagulation Therapy, B12 Deficiency - Infectious Disease History Infectious Disease History: Reports: Chicken Pox, Measles, Mumps - Past Surgical History Head Surgeries/Procedures: Reports: None HEENT Surgical History: Reports: Cataract Surgery, Naso-Sinus Surgery Other HEENT Surgeries/Procedures: OU Cardiovascular Surgical History: Reports: Coronary Artery Stent Other Cardiovascular Surgeries/Procedures: x3 Respiratory Surgical History: Reports: None GI Surgical History: Reports: Appendectomy, Colonoscopy, EGD Male Surgical History: Reports: Other (See Below) Other Male Surgeries/Procedures: testicle removed Endocrine Surgical History: Reports: None Neurological Surgical History: Reports: None Musculoskeletal Surgical History: Reports: Hip Replacement Other Musculoskeletal Surgeries/Procedures:: bilateral hip replacements Social & Family History - Family History Family Medical History: No Pertinent Family History Oncologic: Reports: Leukemia Other Oncologic Family History: Brother - Tobacco Use Tobacco Use Status *Q: Unknown Ever Used Tobacco - Caffeine Use Caffeine Use: Reports: None Other Caffeine Use: 2/day Caffeine Use Comment: 1-2 sodas - Living Situation & Occupation Living situation: Reports: , with Spouse Occupation: Retired ED ROS GENERAL - Review of Systems Review Of Systems: See Below Constitutional: Reports: No Symptoms HEENT: Reports: No Symptoms Respiratory: Reports: Cough, Sputum Cardiovascular: Reports: Chest Pain (This seems to be related to his coughing) GI/Abdominal: Reports: No Symptoms : Reports: No Symptoms Musculoskeletal: Reports: No Symptoms Skin: Reports: No Symptoms Neurological: Reports: No Symptoms ED EXAM, GENERAL - Physical Exam Exam: See Below Exam Limited By: No Limitations General Appearance: Alert, No Apparent Distress Eye Exam: Bilateral Eye: Normal Inspection Ears: Normal External Exam, Normal Canal, Hearing Grossly Normal, Normal TMs, Other (Some wax noted in the external canal) Nose: Normal Inspection, Normal Mucosa, No Blood Throat/Mouth: Normal Inspection, Normal Lips, Normal Gums, Normal Oropharynx, No Airway Compromise. No: Normal Teeth (All upper teeth are missing and some of the lowers are missing) Head: Atraumatic, Normocephalic Neck: Normal Inspection, Supple, Non-Tender, Full Range of Motion. No: Lymphadenopathy (L), Lymphadenopathy (R) Respiratory/Chest: No Respiratory Distress, Decreased Breath Sounds, Other (Few bibasilar crackles that seem to clear with a few deep breaths). No: Wheezing Cardiovascular: Regular Rate, Rhythm, No Murmur GI/Abdominal: Normal Bowel Sounds, Soft, Pelvis Stable Back Exam: Normal Inspection. No: CVA Tenderness (L), CVA Tenderness (R) Extremities: Other (Plus pitting edema) Neurological: Alert, Oriented, Normal Cognition #1 Interpretation EKG Date: 03/25/21 Rhythm: A-Fib Rate (Beats/Min): 107 Springer: Normal P-Wave: Absent QRS: Other (Low voltage) ST-T: Other (ST depression V3 V4 not new) QT: Prolonged (Borderline) Comparison: No Change (No significant change from 10/08/2020) Course - Vital Signs Last Recorded V/S: Last Vital Signs Temp 36.4 C 03/25/21 03:41 Pulse 97 03/25/21 03:41 Resp 31 H 03/25/21 03:41 BP 128/89 03/25/21 03:41 Pulse Ox 92 L 03/25/21 05:15 - Orders/Labs/Meds Orders: Active Orders 24 hr Category Date Time Status RT Aerosol Therapy [RC] ASDIRECTED Care 03/25/21 04:19 Active RT Aerosol Therapy [RC] ASDIRECTED Care 03/25/21 05:15 Active Labs: Laboratory Tests 03/25/21 03/25/21 03/25/21 Range/Units 04:33 04:33 04:33 WBC 5.89 (4.23-9.07) K/mm3 RBC 3.77 L (4.63-6.08) M/mm3 Hgb 12.4 L (13.7-17.5) gm/dl Hct 39.1 L (40.1-51.0) % MCV 103.7 H (79.0-92.2) fl MCH 32.9 H (25.7-32.2) pg MCHC 31.7 L (32.2-35.5) g/dl RDW Std Deviation 52.8 H (35.1-43.9) fL Plt Count 210 (163-337) K/mm3 MPV 9.0 L (9.4-12.3) fl Neut % (Auto) 62.3 (34.0-67.9) % Lymph % (Auto) 23.9 (21.8-53.1) % [place] % (Auto) 9.7 (5.3-12.2) % Eos % (Auto) 3.4 (0.8-7.0) Baso % (Auto) 0.5 (0.1-1.2) % Neut # (Auto) 3.67 (1.78-5.38) K/mm3 Lymph # (Auto) 1.41 (1.32-3.57) K/mm3 [place] # (Auto) 0.57 (0.30-0.82) K/mm3 Eos # (Auto) 0.20 (0.04-0.54) K/mm3 Baso # (Auto) 0.03 (0.01-0.08) K/mm3 PT 10.3 (9.7-12.0) SECONDS INR 0.93 APTT 25.6 (21.7-31.4) SECONDS Sodium 141 (136-145) mEq/L Potassium 3.8 (3.5-5.1) mEq/L Chloride 102 (98-107) mEq/L Carbon Dioxide 30 (21-32) mEq/L Anion Gap 12.8 (5-15) BUN 12 (7-18) mg/dL Creatinine 1.3 (0.7-1.3) mg/dL Est Cr Clr Drug Dosing 51.36 mL/min Estimated GFR (MDRD) 54 (>60) mL/min BUN/Creatinine Ratio 9.2 L (14-18) Glucose 198 H (70-99) mg/dL Calcium 8.3 L (8.5-10.1) mg/dL Total Bilirubin 0.3 (0.2-1.0) mg/dL AST 13 L (15-37) U/L ALT 17 (16-63) U/L Alkaline Phosphatase 123 H (46-116) U/L Troponin I < 0.017 (0.00-0.056) ng/mL NT-Pro-B Natriuret Pep (0-125) pg/mL Total Protein 5.8 L (6.4-8.2) g/dl Albumin 2.8 L (3.4-5.0) g/dl Globulin 3.0 gm/dL Albumin/Globulin Ratio 0.9 L (1-2) Influenza Type A RNA (NEGATIVE) Influenza Type B RNA (NEGATIVE) SARS-CoV-2 RNA (JOHN) (NEGATIVE) 03/25/21 03/25/21 Range/Units 04:33 05:00 WBC (4.23-9.07) K/mm3 RBC (4.63-6.08) M/mm3 Hgb (13.7-17.5) gm/dl Hct (40.1-51.0) % MCV (79.0-92.2) fl MCH (25.7-32.2) pg MCHC (32.2-35.5) g/dl RDW Std Deviation (35.1-43.9) fL Plt Count (163-337) K/mm3 MPV (9.4-12.3) fl Neut % (Auto) (34.0-67.9) % Lymph % (Auto) (21.8-53.1) % [place] % (Auto) (5.3-12.2) % Eos % (Auto) (0.8-7.0) Baso % (Auto) (0.1-1.2) % Neut # (Auto) (1.78-5.38) K/mm3 Lymph # (Auto) (1.32-3.57) K/mm3 [place] # (Auto) (0.30-0.82) K/mm3 Eos # (Auto) (0.04-0.54) K/mm3 Baso # (Auto) (0.01-0.08) K/mm3 PT (9.7-12.0) SECONDS INR APTT (21.7-31.4) SECONDS Sodium (136-145) mEq/L Potassium (3.5-5.1) mEq/L Chloride (98-107) mEq/L Carbon Dioxide (21-32) mEq/L Anion Gap (5-15) BUN (7-18) mg/dL Creatinine (0.7-1.3) mg/dL Est Cr Clr Drug Dosing mL/min Estimated GFR (MDRD) (>60) mL/min BUN/Creatinine Ratio (14-18) Glucose (70-99) mg/dL Calcium (8.5-10.1) mg/dL Total Bilirubin (0.2-1.0) mg/dL AST (15-37) U/L ALT (16-63) U/L Alkaline Phosphatase (46-116) U/L Troponin I (0.00-0.056) ng/mL NT-Pro-B Natriuret Pep 695 H (0-125) pg/mL Total Protein (6.4-8.2) g/dl Albumin (3.4-5.0) g/dl Globulin gm/dL Albumin/Globulin Ratio (1-2) Influenza Type A RNA Negative (NEGATIVE) Influenza Type B RNA Negative (NEGATIVE) SARS-CoV-2 RNA (JOHN) Negative (NEGATIVE) Meds: Medications Discontinued Medications Generic Name Dose Route Start Last Admin Trade Name Freq PRN Reason Stop Dose Admin Albuterol/Ipratropium 3 ml 03/25/21 04:18 03/25/21 04:39 Albuterol/Ipratropium 3.0-0.5 Mg/3 Ml Neb Soln NEB 03/25/21 04:19 3 ml ONETIME ONE Administration Albuterol/Ipratropium 3 ml 03/25/21 05:15 03/25/21 05:25 Albuterol/Ipratropium 3.0-0.5 Mg/3 Ml Neb Soln NEB 03/25/21 05:16 3 ml ONETIME ONE Administration Hydromorphone HCl 0.5 mg 03/25/21 04:20 03/25/21 05:03 Hydromorphone 0.5 Mg/0.5 Ml Syringe IVPUSH 03/25/21 04:21 0.5 mg ONETIME ONE Administration Hydromorphone HCl 0.5 mg 03/25/21 05:15 03/25/21 05:49 Hydromorphone 0.5 Mg/0.5 Ml Syringe IVPUSH 03/25/21 05:16 0.5 mg ONETIME ONE Administration Methylprednisolone Sodium Succinate 125 mg 03/25/21 04:18 03/25/21 04:36 Methylprednisolone Sodium Succinate 125 Mg/2 Ml Sdv IVPUSH 03/25/21 04:19 125 mg ONETIME ONE Administration - Re-Assessments/Exams Free Text/Narrative Re-Assessment/Exam: 03/25/21 05:14 Received a DuoNeb treatment and this is helped some what he is able to lay down to get a little bit of rest. And he is also complaining of his headache still we'll give another dose of Dilaudid and another DuoNeb treatment. 03/25/21 05:19 The patient is moving air much better. I'll try a second nebulizer see if we can get some further improvement. Patient still complains of his headache will give a second dose of Dilaudid as this seems to be what has worked for him in the past. 03/25/21 07:15 Patient is continuing to do well. Labs reviewed his proBNP is over 600. I discussed this with the patient as it turns out [facility] his Lasix from half an 80 mg tablet to half an 80 mg tablet twice daily morning and noon. He takes 2 potassium daily I have instructed him to go to 3 as they did not adjust his potassium dosage with the increase Lasix. This change in Lasix is supposed to occur Thursday. I am going to place him on prednisone 40 mg a day for 4 more days. Departure - Departure Time of Disposition: 07:18 Disposition: Home, Self-Care 01 Clinical Impression: COPD exacerbation CHF (congestive heart failure) Qualifiers: Heart failure type: unspecified Heart failure chronicity: acute Qualified Code(s): I50.9 - Heart failure, unspecified - Discharge Information Prescriptions: predniSONE 40 mg PO QAM #8 tab Instructions: Chronic Obstructive Pulmonary Disease Exacerbation, [id number], Heart Failure, Diagnosis, [id number] Referrals: Ana Benjamin MD [Primary Care Provider] - Forms: ED Department Discharge Additional Instructions: Return to the emergency room with any questions problems or worsening symptoms. [facility] are going to increase your prednisone from 40 mg once a day to 40 mg twice a day. Along with this I would like for you to increase your potassium from 2 pills a day to 3 pills a day. Take 1 in the morning and 2 at midday. Use your inhalers as directed. You got your first dose of steroids here in the emergency room. You will continue prednisone 40 mg a day for 4 more days starting tomorrow, Thursday, morning prescription for the prednisone was sent to the [facility] pharmacy up by [place]. [facility]-up with [facility] towards the end of this week to have your labs rechecked. Sepsis Event Note (ED) - Evaluation Sepsis Screening Result: No Definite Risk - Focused Exam Vital Signs: Vital Signs Temp Pulse Resp BP Pulse Ox Pulse Ox 03/25/21 05:15 92 L 03/25/21 04:19 94 L 03/25/21 03:41 36.4 C 97 31 H 128/89 85 L - My Orders Last 24 Hours: My Active Orders 03/25/21 04:19 RT Aerosol Therapy [RC] ASDIRECTED 03/25/21 05:15 RT Aerosol Therapy [RC] ASDIRECTED - Assessment/Plan Last 24 Hours: My Active Orders 03/25/21 04:19 RT Aerosol Therapy [RC] ASDIRECTED 03/25/21 05:15 RT Aerosol Therapy [RC] ASDIRECTED
[2021-03-25] MEDS ORDERED: methylPREDNISolone Sodium Succinate 125 MG/2 ML SDV IVPUSH ONE (04:18)
[2021-03-25] MEDS ORDERED: Albuterol/Ipratropium 3.0-0.5 MG/3 ML Neb Soln NEB ONE ×2 (04:18→05:15)
[2021-03-25] MEDS ORDERED: HYDROmorphone 0.5 MG/0.5 ML Syringe IVPUSH ONE ×2 (04:20→05:15)
[2021-03-25 05:41] LABS: CORONAVIRUS COVID-19 NAA NEGATIVE (NEGATIVE)
--- NOTE | 2021-03-25 07:12 | CR ---
Chest: Portable view of the chest was obtained. Comparison: Prior chest x-ray of 03/02/21. Heart is enlarged which appears stable. Slight scarring/atelectasis is seen within the right midlung. Lungs otherwise are clear. Bony structures show nothing acute. Impression: 1. Cardiomegaly which is stable. 2. Slight scarring/atelectasis within the right midlung. 3. Nothing acute is otherwise seen. Diagnostic code #2
== END 2021-03-25 08:18 | disposition home or self-care (01) ==
LOC: JD.ED 03:16
DX: J44.1 Chronic obstructive pulmonary disease with (acute) exacerbation (principal); I13.0 Hypertensive heart and chronic kidney disease with heart failure and stage 1 through stage 4 chronic kidney disease, or unspecified chronic kidney disease; E11.22 Type 2 diabetes mellitus with diabetic chronic kidney disease; N18.9 Chronic kidney disease, unspecified; I50.9 Heart failure, unspecified; I48.91 Unspecified atrial fibrillation; I25.10 Atherosclerotic heart disease of native coronary artery without angina pectoris; I25.2 Old myocardial infarction; K21.9 Gastro-esophageal reflux disease without esophagitis; N40.0 Benign prostatic hyperplasia without lower urinary tract symptoms; M10.9 Gout, unspecified; E66.9 Obesity, unspecified; Z68.27 Body mass index [BMI] 27.0-27.9, adult; Z88.6 Allergy status to analgesic agent; Z88.8 Allergy status to other drugs, medicaments and biological substances; Z91.018 Allergy to other foods; Z88.5 Allergy status to narcotic agent; Z79.01 Long term (current) use of anticoagulants; Z79.899 Other long term (current) drug therapy; Z20.822 Contact with and (suspected) exposure to COVID-19
CPT/HCPCS: 0240U; 36415; 71045; 80053; 83880; 84484; 85025; 85610; 85730; 93005; 94640; 96374; 96375; 96376; 99285; J1170; J2930; 93010; 99284; J7620-GY

== ENCOUNTER 2021-04-12 17:25 | Emergency (ER) | payer OTHER ==
[2021-04-12] MEDS ORDERED: Sodium Chloride 0.9% 10 ML Syringe FLUSH PRN (17:58)
[2021-04-12] MEDS ORDERED: LORazepam 2 MG/ML SDV IVPUSH ONE (18:02)
[2021-04-12] MEDS ORDERED: methylPREDNISolone Sodium Succinate 125 MG/2 ML SDV IVPUSH ONE (18:03)
--- NOTE | 2021-04-12 18:05 | EDM.PDOC ---
ED HPI GENERAL MEDICAL PROBLEM - General Chief Complaint: Respiratory Problem Stated Complaint: SOB Time Seen by Provider: 04/12/21 17:56 Source of Information: Reports: Patient, RN Notes Reviewed History Limitations: Reports: No Limitations - History of Present Illness INITIAL COMMENTS - FREE TEXT/NARRATIVE: Patient is a 70-year-old male who presents to the ER for his chest pain or shortness of breath. Patient is well-known to this ER for having acute issues with chest pain and shortness of breath. States that he developed some stabbing left-sided chest pain last night around 5 PM out of the blue. States that this did feel like it did when he had his last heart attack. States he did "not want to bother us" so he did not come to the ER for evaluation last night. Has been having increased shortness of breath since then as well, states when he walks even 10 feet, it winds him. States he has been out of his house all week, due to the cold temperatures outside so he does not think he has been around anyone that been sick. He is not complaining of any fevers or chills, cough or influenza nausea/vomiting/diarrhea. States he did not take anything for the chest pain, and has not been using his albuterol inhalers or nebulizers. He does have oxygen at home and states that he was using this today but does not use it typically. Chest Pain Score (Numeric/FACES): 5 - Related Data Allergies Allergy/AdvReac Type Severity Reaction Status Date / Time acetaminophen [From Tylenol] Allergy Severe Airway Verified 04/12/21 17:57 Tightness aspirin Allergy Severe Airway Verified 04/12/21 17:57 Tightness horseradish Allergy Severe Airway Verified 04/12/21 17:57 Tightness ibuprofen Allergy Severe Airway Verified 04/12/21 17:57 Tightness meperidine HCl [From Demerol] Allergy Severe Airway Verified 04/12/21 17:57 Tightness oxycodone Allergy Intermediate Rash Verified 04/12/21 17:57 morphine Allergy Mild Itching Verified 04/12/21 17:57 sumatriptan [From Imitrex] Allergy Unknown Cannot Verified 04/12/21 17:57 Remember sumatriptan succinate Allergy Unknown Cannot Verified 04/12/21 17:57 [From Imitrex] Remember haloperidol [From Haldol] AdvReac Mild Change Verified 04/12/21 17:57 Mental Status haloperidol lactate AdvReac Mild Change Verified 04/12/21 17:57 [From Haldol] Mental Status ketorolac tromethamine AdvReac Mild Change Verified 04/12/21 17:57 [From Toradol] Mental Status antihistamines Allergy Severe Airway Uncoded 03/25/21 03:32 Tightness Home Meds: Home Meds Furosemide [Lasix] 40 mg PO DAILY 04/12/14 [History] PARoxetine HCl [Paxil] 20 mg PO DAILY 04/12/14 [History] Potassium Chloride 10 meq PO BID 04/12/14 [History] Tamsulosin HCl [Flomax] 0.4 mg PO DAILY 04/12/14 [History] Tiotropium [Spiriva HandiHaler] 1 cap INH DAILY 04/12/14 [History] Apixaban [Eliquis] 5 mg PO BID 01/23/16 [History] Ipratropium Kersey 1 spray NASBOTH BID PRN 10/18/16 [History] Cholecalciferol (Vitamin D3) [Vitamin D] 1,000 unit PO BID 04/13/17 [History] Mirtazapine 30 mg PO BEDTIME 04/13/17 [History] Magnesium Oxide 420 mg PO BEDTIME 02/19/18 [History] Budesonide/Formoterol [Symbicort 160-4.5 MCG] 2 puff INH BID 04/18/19 [History] Verapamil HCl [Verapamil Sr] 120 mg PO DAILY 08/19/19 [History] guaiFENesin [Guaifenesin] 400 mg PO BID 08/20/19 [History] Levalbuterol Tartrate [Xopenex HFA] 1 puff INH Q6H #1 inhaler 08/22/19 [Rx] Cyanocobalamin (Vitamin B-12) [Vitamin B-12] 1 tab PO DAILY 12/10/19 [History] Famotidine 40 mg PO DAILY 12/10/19 [History] Finasteride 5 mg PO DAILY 12/10/19 [History] Lactobacillus Acidophilus [Acidophilus] 1 tab PO DAILY 12/10/19 [History] levalbuterol HCL [Xopenex] 1.25 mg NEB QID 12/10/19 [History] ClonazePAM [KlonoPIN] 0.5 mg PO BEDTIME #5 tablet 03/05/21 [Rx] Codeine/Promethazine [Phenergan with Codeine] 5 - 10 ml PO Q6HR PRN #300 ml 11/18/20 [Rx] Nitroglycerin 0.4 mg SL ASDIRECTED 11/18/20 [History] Simvastatin [Zocor] 10 mg PO BEDTIME 11/18/20 [History] Amoxicillin/Potassium Clav [Augmentin 875-125 Tablet] 1 each PO BID #10 tablet 12/17/20 [Rx] Furosemide 40 mg PO BID #15 tablet 12/17/20 [Rx] Diltiazem IR [Cardizem] 30 mg PO QID #12 tablet 02/12/21 [Rx] traMADol [Ultram] 50 mg PO Q6H PRN #12 tab 02/12/21 [Rx] Doxycycline [Vibra-Tabs] 100 mg PO Q12HR #20 tab 03/02/21 [Rx] predniSONE 40 mg PO QAM #8 tab 03/25/21 [Rx] predniSONE 20 mg PO ASDIRECTED #15 tab 04/12/21 [Rx] Past Medical History HEENT History: Reports: Impaired Vision, Other (See Below) Other HEENT History: upper/lower dentures Cardiovascular History: Reports: Afib, CAD, Heart Failure, High Cholesterol, Hypertension, [place], Other (See Below) Other Cardiovascular History: stents in 1999, 5 [place] Respiratory History: Reports: COPD, Intubation, Previous, Sleep Apnea Gastrointestinal History: Reports: Chronic Constipation, GERD, PUD Genitourinary History: Reports: BPH, Chronic Renal Insuffiency Musculoskeletal History: Reports: Gout Neurological History: Reports: Headaches, Chronic Other Neuro History: patient reports minimal CARDENAS, will continue to monitor. Psychiatric History: Reports: Depression, PTSD Endocrine/Metabolic History: Reports: Diabetes, Type II, Obesity/BMI 30+, Other (See Below) Other Endocrine/Metabolic History: boardline diabetic- checks AM BS daily Hematologic History: Reports: Anticoagulation Therapy, B12 Deficiency - Infectious Disease History Infectious Disease History: Reports: Chicken Pox, Measles, Mumps - Past Surgical History Head Surgeries/Procedures: Reports: None HEENT Surgical History: Reports: Cataract Surgery, Naso-Sinus Surgery Other HEENT Surgeries/Procedures: OU Cardiovascular Surgical History: Reports: Coronary Artery Stent Other Cardiovascular Surgeries/Procedures: x3 Respiratory Surgical History: Reports: None GI Surgical History: Reports: Appendectomy, Colonoscopy, EGD Male Surgical History: Reports: Other (See Below) Other Male Surgeries/Procedures: testicle removed Endocrine Surgical History: Reports: None Neurological Surgical History: Reports: None Musculoskeletal Surgical History: Reports: Hip Replacement Other Musculoskeletal Surgeries/Procedures:: bilateral hip replacements Oncologic Surgical History: Reports: Other (See Below) Social & Family History - Family History Family Medical History: No Pertinent Family History Oncologic: Reports: Leukemia Other Oncologic Family History: Brother - Caffeine Use Caffeine Use: Reports: None Other Caffeine Use: 2/day Caffeine Use Comment: 1-2 sodas - Living Situation & Occupation Living situation: Reports: , with Spouse Occupation: Retired ED ROS GENERAL - Review of Systems Review Of Systems: Comprehensive ROS is negative, except as noted in HPI. ED EXAM, GENERAL - Physical Exam Exam: See Below Exam Limited By: No Limitations General Appearance: Alert, WD/WN, Anxious, Mild Distress Respiratory/Chest: No Respiratory Distress, Lungs Clear, No Accessory Muscle Use, Chest Non-Tender, Decreased Breath Sounds (diffuse bilaterally) Cardiovascular: Normal Peripheral Pulses, Regular Rate, Rhythm, Other (2+ pitting edema to bilateral lower extremities) GI/Abdominal: Normal Bowel Sounds, Soft, Non-Tender, No Distention, No Mass Extremities: Normal Inspection, Normal Capillary Refill Neurological: Alert, Oriented, Normal Cognition, No Motor/Sensory Deficits Psychiatric: Normal Affect, Normal Mood, Anxious Skin Exam: Warm, Dry, Intact, Normal Color, No Rash #1 Interpretation EKG Date: 04/12/21 Time: 18:10 Rhythm: A-Fib Rate (Beats/Min): 83 Boley: Normal P-Wave: Present QRS: Normal ST-T: Other (T wave flattening in aVL and leads III) QT: Normal EKG Interpretation Comments: No obvious ischemia or acute ST changes noted, reviewed by myself and Dr. Rogers, there was some nonspecific intraventricular conduction delays in V1 through V3, and T wave flattening in aVL and leads III. Course - Vital Signs Last Recorded V/S: Last Vital Signs Temp 98.1 F 04/12/21 17:54 Pulse 105 H 04/12/21 17:54 Resp 22 H 04/12/21 17:54 BP 138/95 H 04/12/21 17:54 Pulse Ox 93 L 04/12/21 17:54 - Orders/Labs/Meds Orders: Active Orders 24 hr Category Date Time Status Oxygen Therapy, ED [RC] ASDIRECTED Care 04/12/21 17:59 Ordered Peripheral IV Care [RC] . DIRECTED Care 04/12/21 17:58 Ordered Chest 1V Frontal [CR] Stat Exams 04/12/21 17:58 Ordered COVID-19/FLU A+B/RSV [MOLEC] Stat Lab 04/12/21 17:58 Ordered Sodium Chloride 0.9% [Saline Flush] Med 04/12/21 17:58 Ordered 10 ml FLUSH ASDIRECTED PRN Peripheral IV Insertion Adult [OM.PC] Stat Oth 04/12/21 17:58 Ordered Medication Orders Sodium Chloride (Sodium Chloride 0.9% 10 Ml Syringe) 10 ml FLUSH ASDIRECTED PRN PRN Reason: Keep Vein Open Last Admin: 04/12/21 18:52 Dose: 10 ml Documented by: NAVEEN Labs: Laboratory Tests 04/12/21 04/12/21 04/12/21 Range/Units 18:15 18:15 18:15 WBC 8.83 (4.23-9.07) K/mm3 RBC 4.04 L (4.63-6.08) M/mm3 Hgb 13.5 L (13.7-17.5) gm/dl Hct 42.3 (40.1-51.0) % MCV 104.7 H (79.0-92.2) fl MCH 33.4 H (25.7-32.2) pg MCHC 31.9 L (32.2-35.5) g/dl RDW Std Deviation 55.9 H (35.1-43.9) fL Plt Count 205 (163-337) K/mm3 MPV 9.4 (9.4-12.3) fl Neut % (Auto) 73.7 H (34.0-67.9) % Lymph % (Auto) 15.2 L (21.8-53.1) % [place] % (Auto) 7.2 (5.3-12.2) % Eos % (Auto) 3.5 (0.8-7.0) Baso % (Auto) 0.2 (0.1-1.2) % Neut # (Auto) 6.50 H (1.78-5.38) K/mm3 Lymph # (Auto) 1.34 (1.32-3.57) K/mm3 [place] # (Auto) 0.64 (0.30-0.82) K/mm3 Eos # (Auto) 0.31 (0.04-0.54) K/mm3 Baso # (Auto) 0.02 (0.01-0.08) K/mm3 PT 10.6 (9.7-12.0) SECONDS INR 0.95 APTT 26.7 (21.7-31.4) SECONDS Sodium 141 (136-145) mEq/L Potassium 3.8 (3.5-5.1) mEq/L Chloride 102 (98-107) mEq/L Carbon Dioxide 31 (21-32) mEq/L Anion Gap 11.8 (5-15) BUN 11 (7-18) mg/dL Creatinine 1.5 H (0.7-1.3) mg/dL Est Cr Clr Drug Dosing 41.62 mL/min Estimated GFR (MDRD) 46 (>60) mL/min BUN/Creatinine Ratio 7.3 L (14-18) Glucose 187 H (70-99) mg/dL Calcium 9.1 (8.5-10.1) mg/dL Magnesium 1.9 (1.8-2.4) mg/dL Total Bilirubin 0.5 (0.2-1.0) mg/dL AST 15 (15-37) U/L ALT 21 (16-63) U/L Alkaline Phosphatase 121 H (46-116) U/L Troponin I < 0.017 (0.00-0.056) ng/mL NT-Pro-B Natriuret Pep (0-125) pg/mL Total Protein 7.0 (6.4-8.2) g/dl Albumin 3.2 L (3.4-5.0) g/dl Globulin 3.8 gm/dL Albumin/Globulin Ratio 0.8 L (1-2) 04/12/21 Range/Units 18:15 WBC (4.23-9.07) K/mm3 RBC (4.63-6.08) M/mm3 Hgb (13.7-17.5) gm/dl Hct (40.1-51.0) % MCV (79.0-92.2) fl MCH (25.7-32.2) pg MCHC (32.2-35.5) g/dl RDW Std Deviation (35.1-43.9) fL Plt Count (163-337) K/mm3 MPV (9.4-12.3) fl Neut % (Auto) (34.0-67.9) % Lymph % (Auto) (21.8-53.1) % [place] % (Auto) (5.3-12.2) % Eos % (Auto) (0.8-7.0) Baso % (Auto) (0.1-1.2) % Neut # (Auto) (1.78-5.38) K/mm3 Lymph # (Auto) (1.32-3.57) K/mm3 [place] # (Auto) (0.30-0.82) K/mm3 Eos # (Auto) (0.04-0.54) K/mm3 Baso # (Auto) (0.01-0.08) K/mm3 PT (9.7-12.0) SECONDS INR APTT (21.7-31.4) SECONDS Sodium (136-145) mEq/L Potassium (3.5-5.1) mEq/L Chloride (98-107) mEq/L Carbon Dioxide (21-32) mEq/L Anion Gap (5-15) BUN (7-18) mg/dL Creatinine (0.7-1.3) mg/dL Est Cr Clr Drug Dosing mL/min Estimated GFR (MDRD) (>60) mL/min BUN/Creatinine Ratio (14-18) Glucose (70-99) mg/dL Calcium (8.5-10.1) mg/dL Magnesium (1.8-2.4) mg/dL Total Bilirubin (0.2-1.0) mg/dL AST (15-37) U/L ALT (16-63) U/L Alkaline Phosphatase (46-116) U/L Troponin I (0.00-0.056) ng/mL NT-Pro-B Natriuret Pep 865 H (0-125) pg/mL Total Protein (6.4-8.2) g/dl Albumin (3.4-5.0) g/dl Globulin gm/dL Albumin/Globulin Ratio (1-2) Meds: Medications Generic Name Dose Route Start Last Admin Trade Name Noel PRN Reason Stop Dose Admin Sodium Chloride 10 ml 04/12/21 17:58 04/12/21 18:52 Sodium Chloride 0.9% 10 Ml Syringe FLUSH 10 ml ASDIRECTED PRN Administration Keep Vein Open Discontinued Medications Generic Name Dose Route Start Last Admin Trade Name Noel PRN Reason Stop Dose Admin Furosemide 40 mg 04/12/21 19:38 Furosemide 40 Mg/4 Ml Vial IVPUSH 04/12/21 19:39 NOW ONE Hydromorphone HCl 0.25 mg 04/12/21 20:07 Hydromorphone 0.5 Mg/0.5 Ml Syringe IVPUSH 04/12/21 20:08 ONETIME ONE Lorazepam 1 mg 04/12/21 18:02 04/12/21 18:49 Lorazepam 2 Mg/Ml Sdv IVPUSH 04/12/21 18:03 1 mg ONETIME ONE Administration Methylprednisolone Sodium Succinate 125 mg 04/12/21 18:03 04/12/21 18:51 Methylprednisolone Sodium Succinate 125 Mg/2 Ml Sdv IVPUSH 04/12/21 18:04 125 mg ONETIME ONE Administration - Re-Assessments/Exams Free Text/Narrative Re-Assessment/Exam: 04/12/21 18:06 Patient presents to the ER for his acute shortness of breath, we will go ahead get a EKG, chest x-ray and some labs for investigation. Patient was complaining of pain and was requesting some Dilaudid but I know from personal experience that the patient does not do well with Dilaudid and this causes major respiratory depression so I have opted to do 1 mg Ativan to see if this helps relax his nerves enough to get him to calm down and feel a bit better. Patient is now on 4 L via nasal cannula and was satting around 96%. 04/12/21 20:06 Patient's BNP was elevated at 800, will give him 1 dose of 40 mg IV Lasix for ongoing management he states he was still having a pretty good headache, so I will order 0.25 mg IV Dilaudid for his headache. Plan is to send the patient home on oral steroids he has oxygen and nebulizers at home and states he would like to try this at home before being admitted to hospital. Again we are on diversion so we would have no beds for him at this time. Departure - Departure Time of Disposition: 20:07 Disposition: Home, Self-Care 01 Condition: Good Clinical Impression: COPD exacerbation CHF exacerbation Qualifiers: Heart failure type: unspecified Qualified Code(s): I50.9 - Heart failure, unspecified - Discharge Information *PRESCRIPTION DRUG MONITORING PROGRAM REVIEWED*: No *COPY OF PRESCRIPTION DRUG MONITORING REPORT IN PATIENT DANITZA: No Prescriptions: predniSONE 20 mg PO ASDIRECTED #15 tab Instructions: Chronic Obstructive Pulmonary Disease, [id number] Referrals: Ana Benjamin MD [Primary Care Provider] - Forms: ED Department Discharge Additional Instructions: You were evaluated in the ER today for acute shortness of breath and chest pain. EKG and labs demonstrate no sign of acute heart attack. Your chest x-ray was negative for any acute processes like pneumonia. It is likely that you are suffering from COPD exacerbation, in combination with a slight CHF exacerbation. 40 mg IV Lasix was given to you at today's visit for management of the CHF. You are on Lasix at home, please continue taking this. You have been given a medication called prednisone for further management of your acute COPD exacerbation you will need to take 1 tablet 2 times a day for the first 5 days, then 1 tablet daily for the next 5 days. This medication was electronically sent to the [place] pharmacy located in the [facility] grocery store. Recommend that you use your nebulizers every 4 hours [id number] for the next 2 days, and then you may decrease to 3 or 4 times a day for a few days, and then 2 times a day for a few days, and then back to more of a PRN use. Recommend you use your oxygen over the next few days as well, at least at 2 L at rest and with activity. If you should need more than 4 L of oxygen via your nasal cannula please do not hesitate to return to the ER for further management. Sepsis Event Note (ED) - Focused Exam Vital Signs: Vital Signs Temp Pulse Resp BP Pulse Ox 04/12/21 17:54 98.1 F 105 H 22 H 138/95 H 93 L - My Orders Last 24 Hours: My Active Orders 04/12/21 17:58 Peripheral IV Care [RC] . DIRECTED Chest 1V Frontal [CR] Stat COVID-19/FLU A+B/RSV [MOLEC] Stat Sodium Chloride 0.9% [Saline Flush] 10 ml FLUSH ASDIRECTED PRN Peripheral IV Insertion Adult [OM.PC] Stat 04/12/21 17:59 Oxygen Therapy, ED [RC] ASDIRECTED - Assessment/Plan Last 24 Hours: My Active Orders 04/12/21 17:58 Peripheral IV Care [RC] . DIRECTED Chest 1V Frontal [CR] Stat COVID-19/FLU A+B/RSV [MOLEC] Stat Sodium Chloride 0.9% [Saline Flush] 10 ml FLUSH ASDIRECTED PRN Peripheral IV Insertion Adult [OM.PC] Stat 04/12/21 17:59 Oxygen Therapy, ED [RC] ASDIRECTED
[2021-04-12] MEDS ORDERED: Furosemide 40 MG/4 ML VIAL IVPUSH ONE (19:38)
[2021-04-12] MEDS ORDERED: HYDROmorphone 0.5 MG/0.5 ML Syringe IVPUSH ONE (20:07)
[2021-04-12 21:25] LABS: CORONAVIRUS COVID-19 NAA NEGATIVE (NEGATIVE)
[2021-04-12 21:31] VITALS: BP 112/75; PULSE 102
--- NOTE | 2021-04-15 08:46 | CR ---
EXAM: XR CHEST 1 VIEW LOCATION: [facility] [place] DATE/TIME: 04/12/2021 6:33 PM INDICATION: Chest pain COMPARISON: None. IMPRESSION: There is a large rounded contour projecting over the lower mediastinum asymmetric to the right which contains a locule of gas on the upright view and is consistent with a large hiatal hernia. There is mild atelectasis of the mid and lower right lung around the hiatal hernia. Left lung appears clear. Heart size is difficult to evaluate. Pulmonary vascularity is normal. No pleural effusion or pneumothorax. SIGNED BY: Ko Morrow MD 04/12/2021 8:52 PM CHARITY
== END 2021-04-12 21:29 | disposition home or self-care (01) ==
LOC: JD.ED 17:25
DX: J44.1 Chronic obstructive pulmonary disease with (acute) exacerbation (principal); I13.0 Hypertensive heart and chronic kidney disease with heart failure and stage 1 through stage 4 chronic kidney disease, or unspecified chronic kidney disease; N18.9 Chronic kidney disease, unspecified; I50.9 Heart failure, unspecified; I25.10 Atherosclerotic heart disease of native coronary artery without angina pectoris; I48.91 Unspecified atrial fibrillation; E78.00 Pure hypercholesterolemia, unspecified; I25.2 Old myocardial infarction; M10.9 Gout, unspecified; N40.0 Benign prostatic hyperplasia without lower urinary tract symptoms; Z88.5 Allergy status to narcotic agent; Z88.6 Allergy status to analgesic agent; Z88.8 Allergy status to other drugs, medicaments and biological substances; Z79.899 Other long term (current) drug therapy; Z79.01 Long term (current) use of anticoagulants; Z20.822 Contact with and (suspected) exposure to COVID-19
CPT/HCPCS: 0241U; 36415; 71045; 80053; 83735; 83880; 84484; 85025; 85610; 85730; 93005; 96374; 96375; 99285; J1170; J1940; J2060; J2930

== ENCOUNTER 2021-04-24 17:25 | Inpatient (IN) | payer OTHER ==
[2021-04-24] MEDS ORDERED: methylPREDNISolone Sodium Succinate 125 MG/2 ML SDV IVPUSH ONE (17:53)
[2021-04-24] MEDS ORDERED: Sodium Chloride 0.9% 10 ML Syringe FLUSH PRN (17:53)
[2021-04-24 19:00] LABS: CORONAVIRUS COVID-19 NAA POSITIVE (NEGATIVE)
[2021-04-24] MEDS ORDERED: Albuterol/Ipratropium 3.0-0.5 MG/3 ML Neb Soln NEB ONE (19:37)
[2021-04-24] MEDS ORDERED: REMDESIVIR 200 MG in Sodium Chloride 0.9% 250 ML IV ONE (20:09)
[2021-04-25] MEDS ORDERED: Insulin Regular, Human 100 Units/ML 3 ML Vial IV ONE (06:59)
[2021-04-25] MEDS ORDERED: Insulin Regular, Human 100 Units/ML 3 ML Vial ONE (07:02)
[2021-04-25] MEDS ORDERED: Sodium Chloride 0.9% 500 ML IV ONE (07:10)
[2021-04-25] MEDS ORDERED: Insulin Regular, Human 100 Units/ML 3 ML Vial SUBCUT ONE (08:00)
[2021-04-25] MEDS ORDERED: Albuterol 0.083% 2.5 MG/3 ML Neb Soln NEB PRN (09:21)
[2021-04-25] MEDS: methylPREDNISolone Sodium Succinate 40 MG/1 ML SDV IVPUSH SCH ×2 (10:20→17:07)
[2021-04-25] MEDS: Diltiazem 120 MG Cap.CD PO SCH ×2 (10:20→11:02)
[2021-04-25] MEDS ORDERED: Lactated Ringers 1,000 ML IV SCH (10:45)
[2021-04-25 11:11] LABS: HEMOGLOBIN A1C 11.7 %
[2021-04-25] MEDS ORDERED: Non-Formulary Medication 1 Each (Levalbuterol Tartrate [Xopenex Hfa] 15 GM Inhaler) INH PRN (11:35)
[2021-04-25] MEDS ORDERED: Nitroglycerin 0.4 MG Tab.SL SL PRN (11:45)
[2021-04-25] MEDS: PARoxetine 20 MG Tab PO SCH (12:10)
[2021-04-25] MEDS: ClonazePAM 0.5 MG Tab PO SCH (12:10)
[2021-04-25] MEDS: Finasteride 5 MG Tab PO SCH (12:10)
[2021-04-25] MEDS: Tamsulosin 0.4 MG Cap.ER PO SCH (12:10)
[2021-04-25] MEDS: Apixaban 5 MG Tab PO SCH ×2 (12:10→21:06)
[2021-04-25] MEDS: Insulin Glargine,Hum.Rec.Anlog 100 UNIT/ML 3 ML Pen SUBCUT SCH (12:16)
[2021-04-25] MEDS: Insulin Lispro 100 Unit/ML 3 ML KwikPen SUBCUT SCH ×2 (16:34→21:07)
[2021-04-25] MEDS: Levalbuterol HCl 1.25 MG/3 ML Neb NEB PRN (18:41)
[2021-04-25] MEDS ORDERED: REMDESIVIR 100 MG in Sodium Chloride 0.9% 250 ML IV SCH (20:00)
[2021-04-25] MEDS ORDERED: Formoterol/Mometasone 200-5 MCG 8.8 GM Inhaler ONE (20:34)
[2021-04-25] MEDS ORDERED: Formoterol/Mometasone 100-5 MCG 8.8 GM Inhaler IH SCH (21:00)
[2021-04-25] MEDS: ClonazePAM 1 MG Tab PO SCH (21:06)
[2021-04-25] MEDS: Famotidine 20 MG Tab PO SCH (21:06)
[2021-04-25] MEDS: Mirtazapine 30 MG Tab PO SCH (21:06)
[2021-04-25] MEDS: Melatonin 3 MG Tab PO SCH (21:06)
[2021-04-25] MEDS: Formoterol/Mometasone 200-5 MCG 8.8 GM Inhaler IH SCH (22:17)
[2021-04-26] MEDS: methylPREDNISolone Sodium Succinate 40 MG/1 ML SDV IVPUSH SCH ×3 (05:53→17:05)
[2021-04-26] MEDS: Insulin Lispro 100 Unit/ML 3 ML KwikPen SUBCUT SCH ×6 (06:20→21:02)
[2021-04-26] MEDS: Formoterol/Mometasone 200-5 MCG 8.8 GM Inhaler IH SCH ×2 (06:21→21:10)
[2021-04-26] MEDS: Zinc Sulfate 220 MG Cap PO SCH (07:59)
[2021-04-26] MEDS: Apixaban 5 MG Tab PO SCH ×2 (07:59→20:39)
[2021-04-26] MEDS: Famotidine 20 MG Tab PO SCH (07:59)
[2021-04-26] MEDS: Finasteride 5 MG Tab PO SCH (07:59)
[2021-04-26] MEDS: ClonazePAM 0.5 MG Tab PO SCH (07:59)
[2021-04-26] MEDS: PARoxetine 20 MG Tab PO SCH (07:59)
[2021-04-26] MEDS: Diltiazem 120 MG Cap.CD PO SCH (07:59)
[2021-04-26] MEDS: Insulin Glargine,Hum.Rec.Anlog 100 UNIT/ML 3 ML Pen SUBCUT SCH ×3 (08:00→20:56)
[2021-04-26] MEDS: Tamsulosin 0.4 MG Cap.ER PO SCH (08:00)
[2021-04-26] MEDS: Albuterol/Ipratropium 3.0-0.5 MG/3 ML Neb Soln NEB PRN (17:18)
[2021-04-26] MEDS: Melatonin 3 MG Tab PO SCH (20:37)
[2021-04-26] MEDS: ClonazePAM 1 MG Tab PO SCH (20:37)
[2021-04-26] MEDS: Mirtazapine 30 MG Tab PO SCH (20:38)
[2021-04-26] MEDS: REMDESIVIR 100 MG in Sodium Chloride 0.9% 250 ML IV SCH (20:40)
[2021-04-26] MEDS: Levalbuterol HCl 1.25 MG/3 ML Neb NEB PRN (21:10)
[2021-04-27] MEDS: methylPREDNISolone Sodium Succinate 40 MG/1 ML SDV IVPUSH SCH ×3 (02:14→17:52)
[2021-04-27] MEDS: Formoterol/Mometasone 200-5 MCG 8.8 GM Inhaler IH SCH ×2 (06:14→20:55)
[2021-04-27] MEDS: Insulin Lispro 100 Unit/ML 3 ML KwikPen SUBCUT SCH ×7 (06:28→21:00)
[2021-04-27] MEDS: Famotidine 20 MG Tab PO SCH (08:53)
[2021-04-27] MEDS: Diltiazem 120 MG Cap.CD PO SCH (08:53)
[2021-04-27] MEDS: Tamsulosin 0.4 MG Cap.ER PO SCH (08:53)
[2021-04-27] MEDS: Finasteride 5 MG Tab PO SCH (08:56)
[2021-04-27] MEDS: Apixaban 5 MG Tab PO SCH ×2 (08:56→20:32)
[2021-04-27] MEDS: Zinc Sulfate 220 MG Cap PO SCH (08:56)
[2021-04-27] MEDS: PARoxetine 20 MG Tab PO SCH (08:57)
[2021-04-27] MEDS: ClonazePAM 0.5 MG Tab PO SCH (08:57)
[2021-04-27] MEDS: Insulin Glargine,Hum.Rec.Anlog 100 UNIT/ML 3 ML Pen SUBCUT SCH ×3 (08:58→20:39)
[2021-04-27] MEDS: Tiotropium Bromide 4 GM Inhalation Spray (2.5mcg/1 dose; 10 doses) INH SCH (09:18)
[2021-04-27] MEDS: Albuterol/Ipratropium 3.0-0.5 MG/3 ML Neb Soln NEB PRN (09:18)
[2021-04-27] MEDS ORDERED: Insulin Glargine,Hum.Rec.Anlog 100 UNIT/ML 3 ML Pen SUBCUT ONE (10:00)
[2021-04-27] MEDS: Melatonin 3 MG Tab PO SCH (20:32)
[2021-04-27] MEDS: ClonazePAM 1 MG Tab PO SCH (20:32)
[2021-04-27] MEDS: Mirtazapine 30 MG Tab PO SCH (20:32)
[2021-04-27] MEDS: REMDESIVIR 100 MG in Sodium Chloride 0.9% 250 ML IV SCH (20:32)
[2021-04-28] MEDS: methylPREDNISolone Sodium Succinate 40 MG/1 ML SDV IVPUSH SCH ×3 (02:27→17:01)
[2021-04-28] MEDS: Insulin Lispro 100 Unit/ML 3 ML KwikPen SUBCUT SCH ×7 (06:00→21:26)
[2021-04-28] MEDS: Albuterol/Ipratropium 3.0-0.5 MG/3 ML Neb Soln NEB PRN ×2 (06:15→20:51)
[2021-04-28] MEDS: Formoterol/Mometasone 200-5 MCG 8.8 GM Inhaler IH SCH ×2 (06:15→20:51)
[2021-04-28] MEDS: Tiotropium Bromide 4 GM Inhalation Spray (2.5mcg/1 dose; 10 doses) INH SCH (08:16)
[2021-04-28] MEDS: Tamsulosin 0.4 MG Cap.ER PO SCH (08:30)
[2021-04-28] MEDS: Famotidine 20 MG Tab PO SCH (08:30)
[2021-04-28] MEDS: ClonazePAM 0.5 MG Tab PO SCH (08:30)
[2021-04-28] MEDS: PARoxetine 20 MG Tab PO SCH (08:30)
[2021-04-28] MEDS: Finasteride 5 MG Tab PO SCH (08:30)
[2021-04-28] MEDS: Diltiazem 120 MG Cap.CD PO SCH (08:30)
[2021-04-28] MEDS: Apixaban 5 MG Tab PO SCH ×2 (08:30→21:14)
[2021-04-28] MEDS: Zinc Sulfate 220 MG Cap PO SCH (08:31)
[2021-04-28] MEDS: Insulin Glargine,Hum.Rec.Anlog 100 UNIT/ML 3 ML Pen SUBCUT SCH ×3 (08:31→21:18)
[2021-04-28] MEDS ORDERED: Insulin Glargine,Hum.Rec.Anlog 100 UNIT/ML 3 ML Pen SUBCUT ONE (10:15)
[2021-04-28] MEDS ORDERED: Insulin Glargine,Hum.Rec.Anlog 100 UNIT/ML 3 ML Pen SUBCUT SCH (21:00)
[2021-04-28] MEDS: ClonazePAM 1 MG Tab PO SCH (21:14)
[2021-04-28] MEDS: Mirtazapine 30 MG Tab PO SCH (21:14)
[2021-04-28] MEDS: Melatonin 3 MG Tab PO SCH (21:14)
[2021-04-28] MEDS: REMDESIVIR 100 MG in Sodium Chloride 0.9% 250 ML IV SCH (21:15)
[2021-04-29] MEDS: methylPREDNISolone Sodium Succinate 40 MG/1 ML SDV IVPUSH SCH ×2 (02:34→10:00)
[2021-04-29] MEDS: Albuterol/Ipratropium 3.0-0.5 MG/3 ML Neb Soln NEB PRN (06:22)
[2021-04-29] MEDS: Formoterol/Mometasone 200-5 MCG 8.8 GM Inhaler IH SCH (06:22)
[2021-04-29] MEDS: Insulin Lispro 100 Unit/ML 3 ML KwikPen SUBCUT SCH ×4 (08:44→11:54)
[2021-04-29] MEDS: ClonazePAM 0.5 MG Tab PO SCH (08:47)
[2021-04-29] MEDS: Famotidine 20 MG Tab PO SCH (08:47)
[2021-04-29] MEDS: Tamsulosin 0.4 MG Cap.ER PO SCH (08:48)
[2021-04-29] MEDS: PARoxetine 20 MG Tab PO SCH (08:48)
[2021-04-29] MEDS: Zinc Sulfate 220 MG Cap PO SCH (08:48)
[2021-04-29] MEDS: Diltiazem 120 MG Cap.CD PO SCH (08:48)
[2021-04-29] MEDS: Finasteride 5 MG Tab PO SCH (08:49)
[2021-04-29] MEDS: Apixaban 5 MG Tab PO SCH (08:49)
[2021-04-29] MEDS: Insulin Glargine,Hum.Rec.Anlog 100 UNIT/ML 3 ML Pen SUBCUT SCH (08:50)
[2021-04-29] MEDS: Tiotropium Bromide 4 GM Inhalation Spray (2.5mcg/1 dose; 10 doses) INH SCH (09:11)
[2021-04-29 13:46] VITALS: BP 122/84; PULSE 88
== END 2021-04-29 13:30 | disposition home or self-care (01) | DRG 177 ==
LOC: JD.ED 17:25 → JD.ICU 20:09
PROVIDERS: ADMIT Family Medicine; ATTEND Family Medicine
PROC: 8E0ZXY6 Isolation (ICD-10-PCS; principal; 2021-04-25)
PROC: XW033E5 Introduction of Remdesivir Anti-infective into Peripheral Vein, Percutaneous Approach, New Technology Group 5 (ICD-10-PCS; 2021-04-25)
DX: U07.1 COVID-19 (principal); R09.02 Hypoxemia; J18.9 Pneumonia, unspecified organism; I48.91 Unspecified atrial fibrillation; N17.9 Acute kidney failure, unspecified; I13.0 Hypertensive heart and chronic kidney disease with heart failure and stage 1 through stage 4 chronic kidney disease, or unspecified chronic kidney disease; N18.9 Chronic kidney disease, unspecified; I50.9 Heart failure, unspecified; E78.00 Pure hypercholesterolemia, unspecified; I48.11 Longstanding persistent atrial fibrillation; J44.9 Chronic obstructive pulmonary disease, unspecified; G47.30 Sleep apnea, unspecified; E11.65 Type 2 diabetes mellitus with hyperglycemia; I25.10 Atherosclerotic heart disease of native coronary artery without angina pectoris; N40.0 Benign prostatic hyperplasia without lower urinary tract symptoms; F41.9 Anxiety disorder, unspecified; F32.A Depression, unspecified; Z91.018 Allergy to other foods; Z79.01 Long term (current) use of anticoagulants; Z79.51 Long term (current) use of inhaled steroids; Z79.52 Long term (current) use of systemic steroids; E53.8 Deficiency of other specified B group vitamins; F43.10 Post-traumatic stress disorder, unspecified; K21.9 Gastro-esophageal reflux disease without esophagitis; E11.22 Type 2 diabetes mellitus with diabetic chronic kidney disease; G47.33 Obstructive sleep apnea (adult) (pediatric); I50.810 Right heart failure, unspecified; I08.1 Rheumatic disorders of both mitral and tricuspid valves; H54.7 Unspecified visual loss; M10.9 Gout, unspecified; N18.30 Chronic kidney disease, stage 3 unspecified; Z96.643 Presence of artificial hip joint, bilateral; I25.2 Old myocardial infarction; Z95.5 Presence of coronary angioplasty implant and graft; Z88.5 Allergy status to narcotic agent; Z88.6 Allergy status to analgesic agent; Z88.8 Allergy status to other drugs, medicaments and biological substances; Z79.899 Other long term (current) drug therapy; Z87.891 Personal history of nicotine dependence; Z90.49 Acquired absence of other specified parts of digestive tract; Z98.49 Cataract extraction status, unspecified eye
CPT/HCPCS: 0240U; 36415; 36600; 71045; 80053; 82803; 82947; 83036; 83605; 83735; 83880; 84100; 84484; 85025; 85379; 85610; 85730; 86140; 87040; 93005; 93306; 94640; 96374; 99285; 93010; A9270-GY; J0248; J1815; J2920; J2930; J7030; J7050; J7120; J7612-GY; J7620-GY

== ENCOUNTER 2021-07-04 18:36 | Emergency (ER) | payer OTHER ==
[2021-07-04] MEDS ORDERED: Albuterol 0.083% 2.5 MG/3 ML Neb Soln NEB ONE (19:27)
[2021-07-04] MEDS ORDERED: methylPREDNISolone Sodium Succinate 125 MG/2 ML SDV IVPUSH ONE (19:32)
[2021-07-04] MEDS ORDERED: Morphine 4 MG/ML Syringe IVPUSH ONE (19:32)
[2021-07-04] MEDS ORDERED: HYDROmorphone 0.5 MG/0.5 ML Syringe ONE (19:51)
[2021-07-04] MEDS ORDERED: Albuterol/Ipratropium 3.0-0.5 MG/3 ML Neb Soln NEB ONE ×2 (20:42→21:48)
[2021-07-04] MEDS ORDERED: Oxymetazoline 0.05% Nasal Spray 30 ML Bottle NAS ONE (21:09)
[2021-07-04] MEDS ORDERED: Azithromycin 250 MG Tab PO STA (21:09)
[2021-07-04 22:26] VITALS: BP 113/68; PULSE 99
== END 2021-07-04 22:30 | disposition home or self-care (01) ==
LOC: JD.ED 18:36
DX: J44.1 Chronic obstructive pulmonary disease with (acute) exacerbation (principal); J01.10 Acute frontal sinusitis, unspecified; I25.10 Atherosclerotic heart disease of native coronary artery without angina pectoris; I48.91 Unspecified atrial fibrillation; I11.0 Hypertensive heart disease with heart failure; I50.9 Heart failure, unspecified; I25.2 Old myocardial infarction; E11.9 Type 2 diabetes mellitus without complications; E78.00 Pure hypercholesterolemia, unspecified; J44.9 Chronic obstructive pulmonary disease, unspecified; M10.9 Gout, unspecified; N40.0 Benign prostatic hyperplasia without lower urinary tract symptoms; E66.9 Obesity, unspecified; Z68.30 Body mass index [BMI] 30.0-30.9, adult; Z88.8 Allergy status to other drugs, medicaments and biological substances; Z88.5 Allergy status to narcotic agent; Z79.01 Long term (current) use of anticoagulants; Z79.899 Other long term (current) drug therapy; Z79.4 Long term (current) use of insulin; Z87.891 Personal history of nicotine dependence
CPT/HCPCS: 36415; 71045; 80053; 83605; 83735; 83880; 85025; 85379; 85610; 93005; 94640; 96374; 99285; A9270; J1170; J2930; 93010; 99284; J7620-GY

== ENCOUNTER 2021-07-21 00:36 | Emergency (ER) | payer OTHER ==
[2021-07-21] MEDS ORDERED: Sodium Chloride 0.9% 10 ML Syringe FLUSH PRN (00:56)
[2021-07-21 01:00] VITALS: BP 112/68; PULSE 98
[2021-07-21] MEDS ORDERED: Albuterol/Ipratropium 3.0-0.5 MG/3 ML Neb Soln NEB ONE (01:19)
[2021-07-21] MEDS ORDERED: methylPREDNISolone Sodium Succinate 125 MG/2 ML SDV IVPUSH ONE (01:20)
[2021-07-21] MEDS ORDERED: HYDROmorphone 0.5 MG/0.5 ML Syringe IVPUSH ONE ×2 (01:25→03:20)
[2021-07-21] MEDS ORDERED: Furosemide 40 MG/4 ML VIAL IVPUSH ONE (03:23)
[2021-07-21] MEDS ORDERED: Potassium Chloride 20 MEQ Tab.ER PO ONE (03:23)
[2021-07-21] MEDS ORDERED: Azithromycin 250 MG Tab PO ONE (04:53)
== END 2021-07-21 05:27 | disposition home or self-care (01) ==
LOC: JD.ED 00:36
DX: J44.1 Chronic obstructive pulmonary disease with (acute) exacerbation (principal); R09.02 Hypoxemia; M10.9 Gout, unspecified; E11.22 Type 2 diabetes mellitus with diabetic chronic kidney disease; I13.0 Hypertensive heart and chronic kidney disease with heart failure and stage 1 through stage 4 chronic kidney disease, or unspecified chronic kidney disease; N18.9 Chronic kidney disease, unspecified; I50.9 Heart failure, unspecified; I48.91 Unspecified atrial fibrillation; I25.10 Atherosclerotic heart disease of native coronary artery without angina pectoris; E66.9 Obesity, unspecified; Z68.30 Body mass index [BMI] 30.0-30.9, adult; Z86.16 Personal history of COVID-19; Z88.8 Allergy status to other drugs, medicaments and biological substances; Z88.5 Allergy status to narcotic agent; Z88.6 Allergy status to analgesic agent; Z79.01 Long term (current) use of anticoagulants; Z79.899 Other long term (current) drug therapy; Z79.4 Long term (current) use of insulin
CPT/HCPCS: 36415; 36600; 71045; 80053; 82803; 83880; 84484; 84550; 85025; 86140; 93005; 94640; 96374; 96375; 96376; 99285; A9270; J1170; J1940; J2930; J3490; 93010; 99284; J7620-GY

== ENCOUNTER 2021-08-09 08:07 | Inpatient (IN) | payer OTHER ==
[2021-08-09] MEDS ORDERED: Sodium Chloride 0.9% 10 ML Syringe FLUSH PRN (08:24)
[2021-08-09] MEDS ORDERED: fentaNYL 100 MCG/2 ML SDV IVPUSH ONE (08:25)
[2021-08-09] MEDS ORDERED: Sodium Chloride 0.9% 1,000 ML IV ONE (09:22)
[2021-08-09 09:34] LABS: CORONAVIRUS COVID-19 NAA NEGATIVE (NEGATIVE)
[2021-08-09] MEDS ORDERED: Amoxicillin/Clavulanate K 875-125 MG Tab PO ONE (10:08)
[2021-08-09] MEDS ORDERED: HYDROmorphone 1 MG/ML Syringe IVPUSH ONE (10:08)
[2021-08-09] MEDS ORDERED: Albuterol/Ipratropium 3.0-0.5 MG/3 ML Neb Soln NEB ONE (11:54)
[2021-08-09] MEDS ORDERED: Piperacillin/Tazobactam 4.5 GM in Sodium Chloride 0.9% 100 ML IV ONE (12:56)
[2021-08-09] MEDS ORDERED: HYDROmorphone 0.5 MG/0.5 ML Syringe IVPUSH ONE (12:56)
[2021-08-09] MEDS ORDERED: methylPREDNISolone Sodium Succinate 40 MG/1 ML SDV IVPUSH SCH (18:30)
[2021-08-09] MEDS: Albuterol/Ipratropium 3.0-0.5 MG/3 ML Neb Soln NEB SCH ×2 (18:47→21:12)
[2021-08-09] MEDS ORDERED: Ondansetron 4 MG/2 ML SDV IV PRN (19:49)
[2021-08-09] MEDS: Sodium Chloride 0.9% 1,000 ML IV SCH (20:15)
[2021-08-09] MEDS: Piperacillin/Tazobactam 4.5 GM in Sodium Chloride 0.9% 100 ML IV SCH (20:17)
[2021-08-09] MEDS: Apixaban 5 MG Tab PO SCH (20:18)
[2021-08-09] MEDS: Potassium Chloride 10 MEQ in Premix Bag 1 BAG IV SCH ×4 (20:25→23:24)
[2021-08-09] MEDS: Insulin Lispro 100 Unit/ML 3 ML KwikPen SUBCUT SCH (21:42)
[2021-08-09] MEDS ORDERED: Albuterol/Ipratropium 3.0-0.5 MG/3 ML Neb Soln NEB SCH (22:00)
[2021-08-10] MEDS: Albuterol/Ipratropium 3.0-0.5 MG/3 ML Neb Soln NEB SCH ×6 (01:50→22:17)
[2021-08-10] MEDS: Piperacillin/Tazobactam 4.5 GM in Sodium Chloride 0.9% 100 ML IV SCH ×3 (03:19→20:03)
[2021-08-10] MEDS: Insulin Lispro 100 Unit/ML 3 ML KwikPen SUBCUT SCH ×5 (03:20→22:03)
[2021-08-10] MEDS: Sodium Chloride 0.9% 1,000 ML IV SCH (06:32)
[2021-08-10] MEDS: methylPREDNISolone Sodium Succinate 40 MG/1 ML SDV IVPUSH SCH (09:03)
[2021-08-10] MEDS: Apixaban 5 MG Tab PO SCH ×2 (09:03→20:03)
[2021-08-10] MEDS ORDERED: oxyCODONE 5 MG Tab PO PRN (11:21)
[2021-08-10] MEDS: LORazepam 2 MG/ML SDV IVPUSH PRN (23:29)
[2021-08-11] MEDS: Albuterol/Ipratropium 3.0-0.5 MG/3 ML Neb Soln NEB SCH ×2 (02:07→05:46)
[2021-08-11] MEDS: Piperacillin/Tazobactam 4.5 GM in Sodium Chloride 0.9% 100 ML IV SCH ×3 (04:41→21:14)
[2021-08-11] MEDS: LORazepam 2 MG/ML SDV IVPUSH PRN ×2 (04:41→07:30)
[2021-08-11] MEDS: Insulin Lispro 100 Unit/ML 3 ML KwikPen SUBCUT SCH ×4 (09:11→21:26)
[2021-08-11] MEDS: PARoxetine 20 MG Tab PO SCH (09:11)
[2021-08-11] MEDS: Tamsulosin 0.4 MG Cap.ER PO SCH (09:11)
[2021-08-11] MEDS: Verapamil 180 MG Tab.ER PO SCH (09:11)
[2021-08-11] MEDS: ClonazePAM 0.5 MG Tab PO SCH (09:11)
[2021-08-11] MEDS: methylPREDNISolone Sodium Succinate 40 MG/1 ML SDV IVPUSH SCH (09:12)
[2021-08-11] MEDS: Apixaban 5 MG Tab PO SCH ×2 (09:12→21:28)
[2021-08-11] MEDS: Finasteride 5 MG Tab PO SCH (09:12)
[2021-08-11] MEDS: Famotidine 20 MG Tab PO SCH (09:12)
[2021-08-11] MEDS: Furosemide 40 MG Tab PO SCH ×2 (09:12→21:28)
[2021-08-11] MEDS ORDERED: Albuterol/Ipratropium 3.0-0.5 MG/3 ML Neb Soln NEB SCH (10:00)
[2021-08-11] MEDS ORDERED: Metoprolol Tartrate 5 MG/5 ML SDV IVPUSH ONE (10:37)
[2021-08-11] MEDS: Metoprolol Tartrate 25 MG Tab PO SCH ×3 (11:01→23:16)
[2021-08-11] MEDS: HYDROmorphone 0.5 MG/0.5 ML Syringe IVPUSH PRN ×4 (11:16→21:18)
[2021-08-11] MEDS: Levalbuterol HCl 1.25 MG/3 ML Neb NEB PRN (20:09)
[2021-08-11] MEDS ORDERED: ClonazePAM 1 MG Tab PO SCH (21:00)
[2021-08-11] MEDS ORDERED: Mirtazapine 30 MG Tab PO SCH (21:00)
[2021-08-12] MEDS: Piperacillin/Tazobactam 4.5 GM in Sodium Chloride 0.9% 100 ML IV SCH (05:00)
[2021-08-12] MEDS: Insulin Lispro 100 Unit/ML 3 ML KwikPen SUBCUT SCH (06:29)
[2021-08-12] MEDS: Levalbuterol HCl 1.25 MG/3 ML Neb NEB PRN (08:16)
[2021-08-12] MEDS: Furosemide 40 MG Tab PO SCH (08:48)
[2021-08-12] MEDS: PARoxetine 20 MG Tab PO SCH (08:48)
[2021-08-12] MEDS: ClonazePAM 0.5 MG Tab PO SCH (08:48)
[2021-08-12] MEDS: Verapamil 180 MG Tab.ER PO SCH (08:48)
[2021-08-12] MEDS: methylPREDNISolone Sodium Succinate 40 MG/1 ML SDV IVPUSH SCH (08:48)
[2021-08-12] MEDS: Famotidine 20 MG Tab PO SCH (08:48)
[2021-08-12] MEDS: Finasteride 5 MG Tab PO SCH (08:48)
[2021-08-12] MEDS: Apixaban 5 MG Tab PO SCH (08:48)
[2021-08-12] MEDS: Tamsulosin 0.4 MG Cap.ER PO SCH (08:48)
[2021-08-12] MEDS ORDERED: predniSONE 10 MG Tab PO SCH (10:00)
[2021-08-12] MEDS: Metoprolol Tartrate 25 MG Tab PO SCH (10:56)
[2021-08-12 11:37] VITALS: BP 122/95
[2021-08-12 11:46] VITALS: PULSE 65
[2021-08-12] MEDS ORDERED: Amoxicillin/Clavulanate K 875-125 MG Tab PO SCH (15:00)
== END 2021-08-12 12:00 | disposition home or self-care (01) | DRG 191 ==
LOC: JD.ED 08:07 → JD.MS 16:49
PROVIDERS: ADMIT Family Medicine; ATTEND Family Medicine
DX: J44.1 Chronic obstructive pulmonary disease with (acute) exacerbation (principal); K57.32 Diverticulitis of large intestine without perforation or abscess without bleeding; E87.2 Acidosis; I48.91 Unspecified atrial fibrillation; I13.0 Hypertensive heart and chronic kidney disease with heart failure and stage 1 through stage 4 chronic kidney disease, or unspecified chronic kidney disease; N18.9 Chronic kidney disease, unspecified; I50.9 Heart failure, unspecified; E87.6 Hypokalemia; I12.9 Hypertensive chronic kidney disease with stage 1 through stage 4 chronic kidney disease, or unspecified chronic kidney disease; Z95.5 Presence of coronary angioplasty implant and graft; J44.9 Chronic obstructive pulmonary disease, unspecified; G47.30 Sleep apnea, unspecified; E11.22 Type 2 diabetes mellitus with diabetic chronic kidney disease; Z20.822 Contact with and (suspected) exposure to COVID-19; Z87.11 Personal history of peptic ulcer disease; N40.0 Benign prostatic hyperplasia without lower urinary tract symptoms; I25.10 Atherosclerotic heart disease of native coronary artery without angina pectoris; E78.5 Hyperlipidemia, unspecified; F43.10 Post-traumatic stress disorder, unspecified; K21.9 Gastro-esophageal reflux disease without esophagitis; Z86.16 Personal history of COVID-19; N18.30 Chronic kidney disease, stage 3 unspecified; Z91.018 Allergy to other foods; Z79.01 Long term (current) use of anticoagulants; Z79.4 Long term (current) use of insulin; M10.9 Gout, unspecified; L03.031 Cellulitis of right toe; E53.8 Deficiency of other specified B group vitamins; H54.7 Unspecified visual loss; E78.00 Pure hypercholesterolemia, unspecified; K59.09 Other constipation; F41.9 Anxiety disorder, unspecified; F32.A Depression, unspecified; Z96.653 Presence of artificial knee joint, bilateral; Z99.81 Dependence on supplemental oxygen; Z88.6 Allergy status to analgesic agent; Z88.5 Allergy status to narcotic agent; Z88.8 Allergy status to other drugs, medicaments and biological substances; Z79.899 Other long term (current) drug therapy; I25.2 Old myocardial infarction; Z87.891 Personal history of nicotine dependence; Z90.49 Acquired absence of other specified parts of digestive tract
CPT/HCPCS: 0240U; 36415; 70450; 71045; 73630; 74176; 80048; 80053; 80307; 82947; 83605; 83690; 83735; 85007; 85025; 85027; 87040; 93005; 94640; 94760; 94761; 96365; 96375; 96376; 99285; A9270-GY; J1170; J1815; J2060; J2543; J2920; J3010; J3480; J3490; J7030; J7612-GY; J7620-GY

== ENCOUNTER 2021-08-30 11:08 | Emergency (ER) | payer OTHER ==
[2021-08-30] MEDS ORDERED: Sodium Chloride 0.9% 10 ML Syringe FLUSH PRN (11:44)
[2021-08-30 11:45] VITALS: PULSE 68
[2021-08-30] MEDS ORDERED: methylPREDNISolone Sodium Succinate 125 MG/2 ML SDV IVPUSH ONE (11:45)
[2021-08-30] MEDS ORDERED: Albuterol/Ipratropium 3.0-0.5 MG/3 ML Neb Soln NEB ONE (11:45)
[2021-08-30] MEDS ORDERED: HYDROmorphone 0.5 MG/0.5 ML Syringe IVPUSH ONE (11:46)
[2021-08-30 13:59] VITALS: BP 98/75
== END 2021-08-30 14:30 | disposition home or self-care (01) ==
LOC: JD.ED 11:08
DX: J44.1 Chronic obstructive pulmonary disease with (acute) exacerbation (principal); I11.0 Hypertensive heart disease with heart failure; I50.9 Heart failure, unspecified; I25.10 Atherosclerotic heart disease of native coronary artery without angina pectoris; I25.2 Old myocardial infarction; E11.9 Type 2 diabetes mellitus without complications; E66.9 Obesity, unspecified; Z68.29 Body mass index [BMI] 29.0-29.9, adult; Z86.16 Personal history of COVID-19; Z90.49 Acquired absence of other specified parts of digestive tract; Z87.891 Personal history of nicotine dependence; Z79.899 Other long term (current) drug therapy; Z79.01 Long term (current) use of anticoagulants; Z88.6 Allergy status to analgesic agent; Z88.5 Allergy status to narcotic agent; Z88.8 Allergy status to other drugs, medicaments and biological substances
CPT/HCPCS: 36415; 71045; 80053; 85025; 94640; 96374; 96375; 99285; J1170; J2930; J3490; J7620-GY

== ENCOUNTER 2021-09-07 05:25 | Emergency (ER) | payer OTHER ==
[2021-09-07] MEDS ORDERED: Albuterol/Ipratropium 3.0-0.5 MG/3 ML Neb Soln ONE (05:29)
[2021-09-07] MEDS ORDERED: Sodium Chloride 0.9% 10 ML Syringe FLUSH PRN (05:30)
[2021-09-07] MEDS ORDERED: Albuterol/Ipratropium 3.0-0.5 MG/3 ML Neb Soln NEB ONE ×2 (05:48→12:08)
[2021-09-07] MEDS ORDERED: HYDROmorphone 0.5 MG/0.5 ML Syringe IVPUSH ONE ×2 (06:02→07:51)
[2021-09-07 06:12] LABS: ESTIMATED GFR 50 mL/min (>60)
[2021-09-07 06:49] VITALS: BP 119/78; PULSE 104
[2021-09-07] MEDS ORDERED: Albuterol 0.083% 2.5 MG/3 ML Neb Soln NEB ONE (07:51)
[2021-09-07] MEDS ORDERED: cefTRIAXone 1 GM in Sodium Chloride 0.9% 100 ML IV ONE (12:09)
== END 2021-09-07 14:15 | disposition home or self-care (01) ==
LOC: JD.ED 05:25
DX: J44.1 Chronic obstructive pulmonary disease with (acute) exacerbation (principal); I25.10 Atherosclerotic heart disease of native coronary artery without angina pectoris; I48.91 Unspecified atrial fibrillation; E78.00 Pure hypercholesterolemia, unspecified; E11.22 Type 2 diabetes mellitus with diabetic chronic kidney disease; I12.9 Hypertensive chronic kidney disease with stage 1 through stage 4 chronic kidney disease, or unspecified chronic kidney disease; N18.9 Chronic kidney disease, unspecified; I25.2 Old myocardial infarction; N40.0 Benign prostatic hyperplasia without lower urinary tract symptoms; E66.9 Obesity, unspecified; Z68.30 Body mass index [BMI] 30.0-30.9, adult; Z88.8 Allergy status to other drugs, medicaments and biological substances; Z88.5 Allergy status to narcotic agent; Z88.6 Allergy status to analgesic agent; Z79.01 Long term (current) use of anticoagulants; Z79.899 Other long term (current) drug therapy; Z20.822 Contact with and (suspected) exposure to COVID-19
CPT/HCPCS: 36415; 36600; 71045; 80053; 82803; 83880; 84484; 85025; 86140; 87635; 94640; 94660; 96365; 96375; 96376; 99285; J0696; J1170; J3490; 99284; J7620-GY; U0002

== ENCOUNTER 2021-09-09 02:00 | Emergency (ER) | payer OTHER ==
[2021-09-09 02:13] VITALS: BP 142/92; PULSE 93
[2021-09-09] MEDS: Albuterol/Ipratropium 3.0-0.5 MG/3 ML Neb Soln NEB PRN ×2 (02:15→05:29)
[2021-09-09] MEDS ORDERED: Albuterol/Ipratropium 3.0-0.5 MG/3 ML Neb Soln ONE ×2 (02:17→02:24)
[2021-09-09 03:00] LABS: ESTIMATED GFR 43 mL/min (>60)
[2021-09-09] MEDS ORDERED: HYDROmorphone 0.5 MG/0.5 ML Syringe IVPUSH ONE ×3 (03:22→04:46)
[2021-09-09] MEDS ORDERED: methylPREDNISolone Sodium Succinate 125 MG/2 ML SDV IVPUSH ONE (04:25)
[2021-09-09] MEDS ORDERED: Sodium Chloride 0.9% 100 ML IV SCH (08:15)
[2021-09-09] MEDS ORDERED: Iopamidol 755 Mg/ML 100 ML Bottle IVPUSH ONE (08:15)
[2021-09-09] MEDS ORDERED: Sodium Chloride 0.9% 10 ML Syringe FLUSH PRN (08:15)
[2021-09-09] MEDS ORDERED: cefTRIAXone 1 GM in Sodium Chloride 0.9% 100 ML IV ONE (09:01)
[2021-09-09] MEDS ORDERED: Doxycycline 100 MG in Sodium Chloride 0.9% 100 ML IV ONE (09:01)
== END 2021-09-09 14:09 ==
LOC: JD.ED 02:00
DX: J44.1 Chronic obstructive pulmonary disease with (acute) exacerbation (principal); I11.0 Hypertensive heart disease with heart failure; I50.9 Heart failure, unspecified; I25.10 Atherosclerotic heart disease of native coronary artery without angina pectoris; I25.2 Old myocardial infarction; E78.00 Pure hypercholesterolemia, unspecified; E66.9 Obesity, unspecified; Z68.30 Body mass index [BMI] 30.0-30.9, adult; Z79.899 Other long term (current) drug therapy; Z79.01 Long term (current) use of anticoagulants; Z88.6 Allergy status to analgesic agent; Z88.5 Allergy status to narcotic agent; Z91.013 Allergy to seafood; Z88.8 Allergy status to other drugs, medicaments and biological substances; Z20.822 Contact with and (suspected) exposure to COVID-19
CPT/HCPCS: 36415; 36600; 71045; 71275; 80053; 82803; 83605; 84484; 85025; 85610; 87040; 87635; 93005; 94640; 94660; 96365; 96368; 96375; 96376; 99285; J0696; J1170; J2930; J3490; Q9967; 93010; 99284; J7620-GY; U0002

== ENCOUNTER 2021-11-01 12:52 | Emergency (ER) | payer OTHER ==
[2021-11-01] MEDS ORDERED: Albuterol/Ipratropium 3.0-0.5 MG/3 ML Neb Soln NEB ONE (13:52)
[2021-11-01] MEDS ORDERED: predniSONE 20 MG Tab PO ONE (13:53)
[2021-11-01 15:09] VITALS: BP 107/67; PULSE 90
== END 2021-11-01 15:09 | disposition home or self-care (01) ==
LOC: JD.ED 12:52
DX: J44.1 Chronic obstructive pulmonary disease with (acute) exacerbation (principal); I11.0 Hypertensive heart disease with heart failure; I50.9 Heart failure, unspecified; I25.10 Atherosclerotic heart disease of native coronary artery without angina pectoris; I25.2 Old myocardial infarction; E11.9 Type 2 diabetes mellitus without complications; E66.9 Obesity, unspecified; Z68.28 Body mass index [BMI] 28.0-28.9, adult; Z88.6 Allergy status to analgesic agent; Z88.1 Allergy status to other antibiotic agents; Z88.8 Allergy status to other drugs, medicaments and biological substances; Z88.5 Allergy status to narcotic agent; Z79.899 Other long term (current) drug therapy; Z79.01 Long term (current) use of anticoagulants; Z86.16 Personal history of COVID-19; Z90.49 Acquired absence of other specified parts of digestive tract; Z87.891 Personal history of nicotine dependence; Z20.822 Contact with and (suspected) exposure to COVID-19
CPT/HCPCS: 36415; 71045; 80053; 84484; 85025; 85610; 87635; 93005; 94640; 99285; J7512; J7620-GY; U0002

== ENCOUNTER 2021-11-14 17:22 | Inpatient (IN) | payer OTHER ==
[2021-11-14] MEDS ORDERED: Sodium Chloride 0.9% 10 ML Syringe FLUSH PRN (17:25)
[2021-11-14] MEDS ORDERED: HYDROmorphone 0.5 MG/0.5 ML Syringe IVPUSH ONE ×2 (17:27→19:41)
[2021-11-14] MEDS ORDERED: Albuterol 0.083% 2.5 MG/3 ML Neb Soln NEB ONE (18:12)
[2021-11-14] MEDS ORDERED: traMADol 50 MG Tab PO ONE (18:46)
[2021-11-14] MEDS ORDERED: fentaNYL 25 MCG/HR Transdermal Patch TRDERM SCH (21:00)
[2021-11-14] MEDS: HYDROmorphone 0.5 MG/0.5 ML Syringe IVPUSH PRN ×2 (21:53→23:52)
[2021-11-15] MEDS: HYDROmorphone 1 MG/ML Syringe IVPUSH PRN ×3 (00:18→06:24)
[2021-11-15 09:00] LABS: HEMOGLOBIN A1C 6.9 %
[2021-11-15] MEDS ORDERED: ClonazePAM 0.5 MG Tab PO SCH ×2 (09:00→21:00)
[2021-11-15] MEDS ORDERED: Insulin Lispro 100 Unit/ML 3 ML KwikPen SUBCUT SCH (11:30)
[2021-11-15] MEDS ORDERED: Famotidine 10 MG Tab PO SCH (12:00)
[2021-11-15] MEDS ORDERED: Verapamil 180 MG Tab.ER PO SCH (12:00)
[2021-11-15] MEDS ORDERED: Finasteride 5 MG Tab PO SCH (12:00)
[2021-11-15] MEDS ORDERED: HYDROmorphone 1 MG/ML Syringe IVPUSH PRN (12:00)
[2021-11-15] MEDS ORDERED: Cholecalciferol (Vitamin D3) 25 MCG Tab PO SCH (12:00)
[2021-11-15] MEDS ORDERED: Albuterol 6.7 GM Inhaler INH PRN (12:00)
[2021-11-15] MEDS ORDERED: Cyanocobalamin (Vitamin B12) 1,000 MCG Tab PO SCH ×2 (12:00→12:45)
[2021-11-15] MEDS: Albuterol 0.083% 2.5 MG/3 ML Neb Soln NEB SCH ×2 (12:13→22:33)
[2021-11-15] MEDS ORDERED: Metoprolol Tartrate 25 MG Tab PO SCH (12:30)
[2021-11-15] MEDS ORDERED: PARoxetine 20 MG Tab PO SCH (13:00)
[2021-11-15] MEDS ORDERED: Tiotropium Bromide 4 GM Inhalation Spray (2.5mcg/1 dose; 10 doses) INH SCH (13:00)
[2021-11-15] MEDS ORDERED: Levalbuterol HCl 1.25 MG/3 ML Neb INH PRN (13:00)
[2021-11-15] MEDS ORDERED: Magnesium Oxide 400 MG Tab PO SCH (13:00)
[2021-11-15] MEDS ORDERED: guaiFENesin 600 MG Tab.ER PO PRN (15:00)
[2021-11-15] MEDS: Saccharomyces Boulardii (Probiotic) 250 MG Cap PO SCH ×2 (17:31→17:33)
[2021-11-15] MEDS: Furosemide 20 MG Tab PO SCH ×2 (17:31→17:34)
[2021-11-15] MEDS ORDERED: Sodium Chloride 0.9% 1,000 ML ONE ×2 (17:48→18:54)
[2021-11-15] MEDS ORDERED: Sodium Chloride 0.9% 500 ML IV ONE (17:58)
[2021-11-15 18:16] VITALS: BP 91/74; PULSE 83
[2021-11-15] MEDS: Insulin Lispro 100 Unit/ML 3 ML KwikPen SUBCUT SCH ×2 (18:43→22:34)
[2021-11-15] MEDS ORDERED: Sodium Chloride 0.9% 250 ML IV ONE (18:45)
[2021-11-15] MEDS ORDERED: Norepinephrine 4 MG/4 ML SDV ONE (18:52)
[2021-11-15] MEDS ORDERED: Norepinephrine 4 MG in Dextrose 5% in Water 246 ML IV SCH ×2 (19:00)
[2021-11-15] MEDS ORDERED: EPINEPHrine 1:10,000 1 MG/10 ML Syringe ONE ×3 (19:31→19:38)
[2021-11-15] MEDS ORDERED: Sodium Bicarbonate 8.4% 50 MEQ/50 ML Syringe ONE ×2 (19:33→19:39)
[2021-11-15] MEDS ORDERED: Rosuvastatin 10 MG Tab PO SCH (21:00)
[2021-11-15] MEDS ORDERED: Apixaban 5 MG Tab PO SCH (21:00)
[2021-11-15] MEDS ORDERED: Succinylcholine 200 MG/10 ML MDV ONE (21:00)
[2021-11-15] MEDS ORDERED: Etomidate 2 MG/ML 20 ML SDV IVPUSH ONE (21:00)
[2021-11-15] MEDS ORDERED: Mirtazapine 30 MG Tab PO SCH (21:00)
[2021-11-15] MEDS ORDERED: Formoterol/Mometasone 200-5 MCG 8.8 GM Inhaler IH SCH (21:00)
[2021-11-15] MEDS ORDERED: Potassium Chloride 20 MEQ Tab.ER PO SCH (21:00)
[2021-11-15] MEDS ORDERED: Insulin Glargine,Human Rec. Analog 100 Units/ML 3 ML Pen SUBCUT SCH (21:00)
[2021-11-15] MEDS: IPRATROPIUM BROMIDE 0.03% NASBOTH SCH (22:34)
[2021-11-16] MEDS ORDERED: Tamsulosin 0.4 MG Cap.ER PO SCH (09:00)
[2021-11-17] MEDS ORDERED: REMOVE FENTANYL TRDERM SCH (21:00)
== END 2021-11-15 21:59 | disposition expired | DRG 552 ==
LOC: JD.ED 17:22 → JD.ICU 19:58
PROVIDERS: ADMIT Pediatrics; ATTEND Pediatrics
PROC: 5A09357 Assistance with Respiratory Ventilation, Less than 24 Consecutive Hours, Continuous Positive Airway Pressure (ICD-10-PCS; principal; 2021-11-15)
PROC: 5A12012 Performance of Cardiac Output, Single, Manual (ICD-10-PCS; 2021-11-15)
PROC: 0BH17EZ Insertion of Endotracheal Airway into Trachea, Via Natural or Artificial Opening (ICD-10-PCS; 2021-11-15)
PROC: 3E033XZ Introduction of Vasopressor into Peripheral Vein, Percutaneous Approach (ICD-10-PCS; 2021-11-15)
DX: S32.030A Wedge compression fracture of third lumbar vertebra, initial encounter for closed fracture (principal); J96.11 Chronic respiratory failure with hypoxia; I48.11 Longstanding persistent atrial fibrillation; I13.0 Hypertensive heart and chronic kidney disease with heart failure and stage 1 through stage 4 chronic kidney disease, or unspecified chronic kidney disease; W19.XXXA Unspecified fall, initial encounter; J44.9 Chronic obstructive pulmonary disease, unspecified; E78.5 Hyperlipidemia, unspecified; G47.33 Obstructive sleep apnea (adult) (pediatric); K59.09 Other constipation; I25.10 Atherosclerotic heart disease of native coronary artery without angina pectoris; K27.7 Chronic peptic ulcer, site unspecified, without hemorrhage or perforation; I46.9 Cardiac arrest, cause unspecified; I48.91 Unspecified atrial fibrillation; I95.9 Hypotension, unspecified; R51.9 Headache, unspecified; E53.8 Deficiency of other specified B group vitamins; N18.31 Chronic kidney disease, stage 3a; F43.12 Post-traumatic stress disorder, chronic; I50.9 Heart failure, unspecified; E66.9 Obesity, unspecified; F32.89 Other specified depressive episodes; E11.65 Type 2 diabetes mellitus with hyperglycemia; W18.30XA Fall on same level, unspecified, initial encounter; F41.9 Anxiety disorder, unspecified; G47.30 Sleep apnea, unspecified; R55 Syncope and collapse; N40.0 Benign prostatic hyperplasia without lower urinary tract symptoms; E78.00 Pure hypercholesterolemia, unspecified; M10.9 Gout, unspecified; N18.9 Chronic kidney disease, unspecified; E11.22 Type 2 diabetes mellitus with diabetic chronic kidney disease; H54.7 Unspecified visual loss; K21.9 Gastro-esophageal reflux disease without esophagitis; Z96.643 Presence of artificial hip joint, bilateral; Z88.1 Allergy status to other antibiotic agents; Z88.6 Allergy status to analgesic agent; Z87.891 Personal history of nicotine dependence; I25.2 Old myocardial infarction; Z88.5 Allergy status to narcotic agent; Z79.4 Long term (current) use of insulin; Z79.52 Long term (current) use of systemic steroids; Z97.2 Presence of dental prosthetic device (complete) (partial); Z86.16 Personal history of COVID-19; Z68.33 Body mass index [BMI] 33.0-33.9, adult; Z95.5 Presence of coronary angioplasty implant and graft; Z98.42 Cataract extraction status, left eye; F32.A Depression, unspecified; Z91.14 Patient's other noncompliance with medication regimen; Z90.79 Acquired absence of other genital organ(s); Z98.41 Cataract extraction status, right eye; Z98.890 Other specified postprocedural states; Z90.89 Acquired absence of other organs; Z90.49 Acquired absence of other specified parts of digestive tract; Z80.6 Family history of leukemia; Y92.59 Other trade areas as the place of occurrence of the external cause; Z88.8 Allergy status to other drugs, medicaments and biological substances; Z79.890 Hormone replacement therapy; Z79.01 Long term (current) use of anticoagulants; Z99.81 Dependence on supplemental oxygen; Z79.899 Other long term (current) drug therapy; Z91.018 Allergy to other foods
CPT/HCPCS: 36415; 70450; 72131; 72192; 80053; 84484; 85025; 93005; 94640; A9270; J1170 ×2; J3490; 36600; 71045; 71045-26; 80048; 82803; 82947; 83036; 83880; 87040; 93010; 94660; 94667; 96374; 96376; 97162-GP; 97530-GP; 99223; 99285; 99285-25; J0171; J0330; J7030; J7050